=== PATIENT | female | born 1935 | race Caucasian/White ===

== ENCOUNTER 2016-09-10 16:22 | Inpatient (IN) | payer OTHER ==
[~2016-09-10] VITALS: Ht 175.3 cm; Wt 80.7 kg
[~2016-09-10 16:22] MED LIST: AMLO5TAB2 PO; CALC500C70 PO; HYDR12.55 PO; LEVO150T PO; METO25TA3 PO; PSYL55.43 PO; SYN125 PO; WARF2TAB PO
[2016-09-10] MEDS ORDERED: SODIUM CHLORIDE 0.9% 1000ML 1,000 ML IV SCH (16:28)
--- NOTE | 2016-09-10 16:32 | EMERGENCY ROOM VISIT NOTE ---
History Report prepared by Sea: Reymundo Good Under the Supervision of: Dr. Dontae Martinez D.O. First contact with patient: 16:24 Stated Complaint: TIA SX History of Present Illness The patient is an 81 year old female with a history of atrial fibrillation, hypertension, and hyperthyroidism, who presents to the Emergency Room with complaints of persistent stroke symptoms that started around 1400 this afternoon. EMS was called to the patient's house by the patient's due to the patient's altered mental status when they were driving around 1400. When EMS got there, the patient started having stroke symptoms which included a right -sided facial droop, right-sided weakness, expressive aphasia, and garbled, slurred speech. The patient is hypertensive currently, per EMS. She denies any current pain or headaches. The patient takes Warfarin, per the pharmacist. Per EMS, the patient is normally very independent. History limited secondary to patient's stroke symptoms. Source of History: patient, EMS History Limited By: other (stroke symptoms) Onset: 1400 this afternoon Position: other (global - stroke symptoms) Timing: other (persistent) Associated Symptoms: + weakness (right-sided), No headache Note: Associated symptoms: Altered mental status, right-sided facial droop, expressive aphasia, garbled and slurred speech. Review of Systems See HPI for pertinent positives & negatives. A total of 10 systems reviewed and were otherwise negative. Past Medical & Surgical Medical Problems: (1) Atrial fibrillation (2) Heart disease (3) HTN (hypertension) (4) Hypothyroidism Family History Cancer Heart disease Hypertension Social History Smoking Status: Unknown if Ever Smoked Alcohol Use: none Marital Status: Housing Status: lives with significant other Occupation Status: retired Current/Historical Medications Scheduled Calcium/Vitamin D (Os-Jensen 500 Plus D), 1 TAB PO BID Diltiazem Hcl Ext Rel (Tiazac), 120 MG PO DAILY Docusate Sodium (Colace), 100 MG PO PM Levothyroxine Sodium (Levothyroxine Sodium), 88 MCG PO DAILY Magnesium Oxide (Mag-Ox), 400 MG PO DAILY Metoprolol Succinate (Toprol Xl), 25 MG PO BID Psyllium (Metamucil Powder), 1 TBS PO QPM Triamcinolone Acet (Aristocort 0.1%), 1 APPLN TD BID Warfarin Sodium (Coumadin), 2-4 MG PO DAILY/UD Scheduled PRN Desonide 0.05% (Desowen 0.05%), 1 APPLN TOP DAILY PRN for RASH Hydroxyzine Hcl (Atarax), 5-10 MG PO QID PRN for ITCHING Allergies Coded Allergies: Amiodarone (Verified Allergy, Unknown, weight loss, 12/11/13) Physical Exam Vital Signs Date Time Temp Pulse Resp B/P Pulse Ox O2 Delivery O2 Flow Rate FiO2 09/10/16 17:36 207/129 09/10/16 17:35 77 26 99 09/10/16 17:31 189/105 09/10/16 17:30 75 24 99 09/10/16 17:26 205/157 09/10/16 17:25 78 100 09/10/16 17:20 76 181/92 99 09/10/16 17:19 Room Air 3.0 09/10/16 17:15 80 99 09/10/16 17:10 80 205/117 99 09/10/16 17:05 82 190/120 99 09/10/16 17:00 81 216/96 97 09/10/16 16:56 75 09/10/16 16:55 75 98 09/10/16 16:54 97 Room Air 09/10/16 16:53 205/125 09/10/16 16:48 203/106 09/10/16 16:24 36.7 75 18 203/106 93 Room Air Physical Exam GENERAL: Patient is awake but somewhat listless appearing. Does not appear to be in pain but slow to respond to questions. EYES: The conjunctivae are clear. The pupils are round and reactive. EARS, NOSE, MOUTH AND THROAT: The nose is without any evidence of any deformity. Mucous membranes are moist tongue is midline NECK: The neck is nontender and supple. RESPIRATORY: Normal respiratory effort is noted there is no evidence of wheezing rhonchi or rales CARDIOVASCULAR: Regular rate and rhythm noted there no murmurs rubs or gallops normal S1 normal S2 GASTROINTESTINAL: The abdomen is soft. Bowel sounds are present in all quadrants. Abdomen is nontender MUSCULOSKELETAL/EXTREMITIES: There is no evidence of gross deformity full range of motion is noted in the hips and shoulders SKIN: There is no obvious evidence of any rash. There are no petechiae, pallor or cyanosis noted. NEUROLOGIC: Patient's speech is thick and dysarthric. Words were inappropriate at times. Right facial droop with right forehead sparing noted. Cooler Conveyor Loader strength unequal, left greater than right. Drift in right upper extremity. Patient unable to lift right leg off of bed, patient was able to lift left leg off bed. Medical Decision & Procedures ER Provider Diagnostic Interpretation: Radiology results as stated below per my review and radiologist interpretation: HEAD CT NONCONTRAST CT DOSE: 691.05 mGy.cm HISTORY: Mental status change Stroke TECHNIQUE: Multiaxial CT images of the head were performed without the use of intravenous contrast. Comparison: None. Findings: The paranasal sinuses and mastoid air cells are clear. The calvarium and skull base are intact. The ventricles and sulci are within normal limits. There is no mass, hematoma, midline shift, or acute infarct. 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 No acute intracranial hemorrhage. No midline shift. Mild age-related atrophy. Impression: No acute intracranial abnormality. Age-related change. Electronically signed by: Michael Guan M.D. 09/10/2016 4:38 PM Dictated Date/Time: 09/10/2016 4:36 PM CHEST ONE VIEW PORTABLE CLINICAL HISTORY: Stroke mental status change COMPARISON STUDY: 12/11/2013 FINDINGS: Moderate prominence of pulmonary vasculature. Diaphragms smooth. Calcifications are sharp. IMPRESSION: Moderate prominence of pulmonary vasculature. Otherwise negative study Electronically signed by: Michael Guan M.D. 09/10/2016 5:18 PM Dictated Date/Time: 09/10/2016 5:18 PM Laboratory Results 09/10/16 16:08 Red Blood Count 4.66, Mean Corpuscular Volume 92.9, Mean Corpuscular Hemoglobin 32.4, Mean Corpuscular Hemoglobin Concent 34.9, Mean Platelet Volume 10.8, Neutrophils (%) (Auto) 65.3, Lymphocytes (%) (Auto) 23.9, Monocytes (%) (Auto) 8.4, Eosinophils (%) (Auto) 1.8, Basophils (%) (Auto) 0.3, Neutrophils # (Auto) 4.99, Lymphocytes # (Auto) 1.82, Monocytes # (Auto) 0.64, Eosinophils # (Auto) 0.14, Basophils # (Auto) 0.02 09/10/16 16:08 Test 09/10/16 16:08 09/10/16 16:53 09/10/16 17:42 09/10/16 17:47 White Blood Count 7.63 K/uL (4.8-10.8) Red Blood Count 4.66 M/uL (4.2-5.4) Hemoglobin 15.1 g/dL (12.0-16.0) Hematocrit 43.3 % (37-47) Mean Corpuscular Volume 92.9 fL (80-100) Mean Corpuscular Hemoglobin 32.4 pg (25-34) Mean Corpuscular Hemoglobin Concent 34.9 g/dl (32-36) Platelet Count 227 K/uL (130-400) Mean Platelet Volume 10.8 fL (7.4-10.4) Neutrophils (%) (Auto) 65.3 % Lymphocytes (%) (Auto) 23.9 % Monocytes (%) (Auto) 8.4 % Eosinophils (%) (Auto) 1.8 % Basophils (%) (Auto) 0.3 % Neutrophils # (Auto) 4.99 K/uL (1.4-6.5) Lymphocytes # (Auto) 1.82 K/uL (1.2-3.4) Monocytes # (Auto) 0.64 K/uL (0.11-0.59) Eosinophils # (Auto) 0.14 K/uL (0-0.5) Basophils # (Auto) 0.02 K/uL (0-0.2) RDW Standard Deviation 44.5 fL (36.4-46.3) RDW Coefficient of Variation 13.0 % (11.5-14.5) Immature Granulocyte % (Auto) 0.3 % Immature Granulocyte # (Auto) 0.02 K/uL (0.00-0.02) Prothrombin Time 25.0 SECONDS (9.0-12.0) Prothromb Time International Ratio 2.3 (0.9-1.1) Activated Partial Thromboplast Time 37.1 SECONDS (21.0-31.0) Partial Thromboplastin Ratio 1.4 Anion Gap 9.0 mmol/L (3-11) Est Creatinine Clear Calc Drug Dose 63.4 ml/min Estimated GFR () 84.5 Estimated GFR (Non- 72.9 BUN/Creatinine Ratio 14.2 (10-20) Calcium Level 9.3 mg/dl (8.5-10.1) Total Bilirubin 0.6 mg/dl (0.2-1) Direct Bilirubin < 0.1 mg/dl (0-0.2) Aspartate Amino Transf (AST/SGOT) 21 U/L (15-37) Alanine Aminotransferase (ALT/SGPT) 23 U/L (12-78) Alkaline Phosphatase 77 U/L (45-117) Total Creatine Kinase 93 U/L (26-192) Creatine Kinase MB 1.8 ng/ml (0.5-3.6) Creatine Kinase MB Ratio 1.9 (0-3.0) Troponin I < 0.015 ng/ml (0-0.045) Total Protein 8.1 gm/dl (6.4-8.2) Albumin 4.1 gm/dl (3.4-5.0) Bedside Prothrombin Time INR 2.3 (0.9-1.1) Laboratory results per my review. Medications Administered Medications (Trade) Dose Ordered Sig/Areli Route Start Time Stop Time Status Last Admin Dose Admin Sodium Chloride (Nss 1000ml) 1,000 ml @ 50 mls/hr Q20H IV 09/10/16 16:28 10/10/16 16:27 09/10/16 17:05 50 MLS/HR ECG Indication: weakness Rate (beats per minute): 77 Rhythm: atrial fibrillation Findings: no ectopy, other (no acute ST segment abnormalities) Change: no significant change (from December 11 2013) ED Course 1624: The patient was evaluated in room C1B. A complete history and physical examination were performed. 1628: Ordered NSS 1000 ml @ 50 mls/hr IV. 1700: I discussed the patient with Dr. Khadra Kiser neurology. 1723: I discussed the patient with Dr. Christopher Muniz hospitalist. She will evaluate the patient for further treatment. Medical Decision Additional history obtained from EMS, ED pharmacist. Differential diagnosis: Etiologies such as metabolic, infection, hypo/hyperglycemia, electrolyte abnormalities, cardiac sources, intracerebral event, toxicologic, neurologic, as well as others were entertained. Additional history is obtained from the patient's family members. The patient is an 81-year-old female with a history of atrial fibrillation who takes Coumadin who presented to the emergency department for an evaluation of possible stroke. She was made a stroke alert upon arrival to the emergency department but she did not meet criteria for TPA because of an elevated INR. The patient appeared to have right-sided neglect as well as right facial droop. She also had right arm drift and her right leg she was unable to lift off of the bed. Because of the patient's NIH stroke scale I consult with the [facility] tele stroke neurologist. He independently evaluated the patient using the bedside machine. At this time she does not appear to be a candidate for TPA or clot retrieval because the onset of symptoms is also somewhat confused because of the caregivers history. I discussed the patient's laboratory and radiographic studies with her and her family members. I also discussed his case with the on-call [facility]. They've agreed to evaluate the patient in the emergency department for further management and disposition. Consults Time Called: 1650 Consulting Physician: Dr. Gaviria Returned Call: 1700 I discussed the patient with Dr. Gaviria - Margi neurology. Additional Consults: Time Called: 1720 Consulted Physician: Dr. Christopher cuevas Returned Call: 1723 Additional Comments: I discussed the patient with Dr. Christopher cuevas. She will evaluate the patient for further treatment. Impression Primary Impression: Acute CVA (cerebrovascular accident) Critical Care I have personally spent greater than 45 minutes of critical care time in the direct management of this patient. This includes bedside care, interpretation of diagnostic studies, and testing, discussion with consultants, patient, and family members, and other required patient management activities. This 45 minutes is in excess of all separately billable procedures. Scribe Attestation The scribe's documentation has been prepared under my direction and personally reviewed by me in its entirety. I confirm that the note above accurately reflects all work, treatment, procedures, and medical decision making performed by me. Stroke t-PA Criteria Reviewed Does NOT meet criteria for t-PA Reason t-PA Not Given Treatment not indicated Strict Exclusion Criteria INR greater than 1.7 Departure Information Dispostion Being Evaluated By Hospitalist Dee Mcwilliams M.D. (PCP)
--- NOTE | 2016-09-10 16:40 | DIAGNOSTIC IMAGING REPORT ---
HEAD CT NONCONTRAST CT DOSE: 691.05 mGy.cm HISTORY: Mental status change Stroke TECHNIQUE: Multiaxial CT images of the head were performed without the use of intravenous contrast. Comparison: None. Findings: The paranasal sinuses and mastoid air cells are clear. The calvarium and skull base are intact. The ventricles and sulci are within normal limits. There is no mass, hematoma, midline shift, or acute infarct. 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 No acute intracranial hemorrhage. No midline shift. Mild age-related atrophy. Impression: No acute intracranial abnormality. Age-related change. Electronically signed by: Michael Guan M.D. 09/10/2016 4:38 PM Dictated Date/Time: 09/10/2016 4:36 PM
--- NOTE | 2016-09-10 16:44 | Pharmacy Progress Note ---
ED Pharmacist Progress Note Date of Service: Sep 10, 2016. Stroke Alert Note / Medication Reconciliation - patient with altered mental status, not able to inform of what medications patient is on - patient was last here in 2013 at which time warfarin was listed as a home medication - called [facility] pharmacy in [place] (preferred pharmacy per previous encounter) , spoke w pharmacist (Jennifer) [facility] pharmacist notes patient recently filled the following medications. Of note, this list may be incomplete as medications that are obtained elsewhere , prn medications not filled recently, and OTC meds the patient may be taking ( among others) will not be listed here. Warfarin 4 mg po SuMoTuTh and 2 mg WeFrSa Metoprolol XL 25 mg po BID Diltiazem ER 120 mg po daily Levothyroxine 88 mcg po daily Levocetirizine 5 mg po daily
[2016-09-10 17:12] LABS: BASO % 0.3 %; BASO ABS # 0.02 K/uL (0-0.2); COMPLETE YES; EOS % 1.8 %; HEMATOCRIT 43.3 % (37-47); IG% 0.3 %; LYMPH % 23.9 %; LYMPH ABS # 1.82 K/uL (1.2-3.4); MEAN CELL VOLUME 92.9 fL (80-100); MEAN CORPUSCULAR HEMOGLOBIN 32.4 pg (25-34); MEAN CORPUSCULAR HGB CONC 34.9 g/dl (32-36); MEAN PLATELET VOLUME 10.8 fL (7.4-10.4); MONO % 8.4 %; NEUT % 65.3 %; PLATELET COUNT 227 K/uL (130-400); RED BLOOD COUNT 4.66 M/uL (4.2-5.4); WHITE BLOOD COUNT 7.63 K/uL (4.8-10.8)
--- NOTE | 2016-09-10 17:20 | DIAGNOSTIC IMAGING REPORT ---
CHEST ONE VIEW PORTABLE CLINICAL HISTORY: Stroke mental status change COMPARISON STUDY: 12/11/2013 FINDINGS: Moderate prominence of pulmonary vasculature. Diaphragms smooth. Calcifications are sharp. IMPRESSION: Moderate prominence of pulmonary vasculature. Otherwise negative study Electronically signed by: Michael Guan M.D. 09/10/2016 5:18 PM Dictated Date/Time: 09/10/2016 5:18 PM
[2016-09-10 17:23] LABS: INR 2.3 (0.9-1.1); PARTIAL THROMBOPLASTIN RATIO 1.4
[2016-09-10] MEDS ORDERED: DSWCR TOP (17:29)
[2016-09-10] MEDS ORDERED: HYDR-389 PO (17:32)
[2016-09-10] MEDS ORDERED: DILT120C68 PO (17:33)
[2016-09-10] MEDS ORDERED: WARF2TAB PO (17:36)
[2016-09-10 17:37] LABS: ALT/SGPT 23 U/L (12-78); BLOOD UREA NITROGEN 11 mg/dl (7-18); BUN/CREATININE RATIO 14.2 (10-20); CALCIUM 9.3 mg/dl (8.5-10.1); CARBON DIOXIDE 28 mmol/L (21-32); CHLORIDE 94 mmol/L (98-107); CREATININE 0.77 mg/dl (0.60-1.20); GLUCOSE 88 mg/dl (70-99); SODIUM 131 mmol/L (136-145)
[2016-09-10] MEDS ORDERED: LEVO88TA3 PO (17:37)
[2016-09-10] MEDS ORDERED: MAGN400T6 PO (17:39)
[2016-09-10 17:41] LABS: ALKALINE PHOSPHATASE 77 U/L (45-117); AST/SGOT 21 U/L (15-37); CKMB/CK RATIO 1.9 (0-3.0)
[2016-09-10] MEDS ORDERED: TRMCR130WC TD (17:41)
[2016-09-10] MEDS ORDERED: DOCU-94 PO (17:44)
[2016-09-10] MEDS ORDERED: NiCARDipine IV 25 MG in SODIUM CHLORIDE 0.9% 250ML 240 ML IV PRN ×2 (18:15→19:06)
[2016-09-10 18:17] LABS: URINE APPEARANCE CLEAR (CLEAR); URINE BILIRUBIN NEG (NEG); URINE COLOR YELLOW; URINE EPITHELIAL CELL AUTO 0-5 /lpf (0-5); URINE NITRITE NEG (NEG); URINE PH 8.5 (4.5-7.5); URINE SPECIFIC GRAVITY 1.008 (1.000-1.030); UROBILINOGEN NEG (NEG)
[2016-09-10 18:20] LABS: MANUAL MICROSCOPIC REQUIRED? NO; REVIEW REQ? NO
[2016-09-10 18:46] LABS: BENZODIAZEPINE, URINE NEG (NEG); COCAINE,URINE NEG (NEG); PHENCYCLIDINE, URINE NEG (NEG)
[2016-09-10] MEDS ORDERED: ACETAMINOPHEN 325 MG TAB PO PRN (19:15)
[2016-09-10] MEDS ORDERED: ONDANSETRON INJ 2 MG/ML 2 ML VIAL IV PRN (19:15)
[2016-09-10] MEDS ORDERED: PHARMACIST DISCHARGE MED REC CONSULT PRN (19:30)
--- NOTE | 2016-09-10 19:51 | History and Physical ---
History & Physical Date & Time of Service: Sep 10, 2016 at 19:31 Chief Complaint: Tia Sx Primary Care Physician: Dee Rivera M.D. History of Present Illness Source: patient, family, clinic records, hospital records, friend Patient seen and examined. 81 year old female with PMHx of Afib on Coumadin, HTN , and hypothyroidism presents to the ED with stroke like symptoms prior to arrival. states that they were shopping in [place] when the patient stated that she was dizzy and had blurry vision. She then apparently developed a right facial droop and had some difficulty walking. Her speech was very slurred and she seemed confused. She could not find the correct words to say, and sometimes wouldn't speak at all. Her took her home and the neighbor saw that the patient had these symptoms and called EMS. In the ED stroke alert was called. CT head was negative. It was decided that patient could not have TPA or clot retrieval d/t INR of 2.3 and unknown onset of symptoms. BP is elevated >190 systolically. A nicardipine drip was started. When seen and examined by this provider, patient continued to have word finding issues, and confusion. She denies fevers, chills, URI symptoms, chest pain, SOB, nausea, vomiting, diarrhea, dysuria, calf pain and edema. Patient will be admitted for further workup and treatment. Past Medical/Surgical History Medical Problems: (1) Atrial fibrillation Status: Chronic (2) HTN (hypertension) Status: Chronic (3) Hypothyroidism Status: Chronic Surgical Problems: (1) H/O colonoscopy Status: Chronic Family History Cancer Heart disease Hypertension Social History Smoking Status: Never Smoker Alcohol Use: none Marital Status: Housing status: lives with family Occupational Status: retired Immunizations History of Influenza Vaccine: Unknown History of Tetanus Vaccine?: Unknown History of Pneumococcal: Unknown History of Hepatitis B Vaccine: Unknown Multi-Drug Resistant Organisms History of MDRO: No Allergies Coded Allergies: Amiodarone (Verified Allergy, Unknown, weight loss, 12/11/13) Home Medications Scheduled Calcium/Vitamin D (Os-Jensen 500 Plus D), 1 TAB PO BID Diltiazem Hcl Ext Rel (Tiazac), 120 MG PO DAILY Docusate Sodium (Colace), 100 MG PO PM Levothyroxine Sodium (Levothyroxine Sodium), 88 MCG PO DAILY Magnesium Oxide (Mag-Ox), 400 MG PO DAILY Metoprolol Succinate (Toprol Xl), 25 MG PO BID Psyllium (Metamucil Powder), 1 TBS PO QPM Triamcinolone Acet (Aristocort 0.1%), 1 APPLN TD BID Warfarin Sodium (Coumadin), 2-4 MG PO DAILY/UD Scheduled PRN Desonide 0.05% (Desowen 0.05%), 1 APPLN TOP DAILY PRN for RASH Hydroxyzine Hcl (Atarax), 5-10 MG PO QID PRN for ITCHING Review of Systems See above for pertinent positives & negatives. A total of 10 systems reviewed and were otherwise negative. Physical Exam Vital Signs Date Time Temp Pulse Resp B/P Pulse Ox O2 Delivery O2 Flow Rate FiO2 09/10/16 19:17 94 26 181/100 97 09/10/16 19:00 74 20 164/88 98 Nasal Cannula 3.0 09/10/16 18:45 87 22 188/98 97 09/10/16 18:29 70 22 157/108 97 09/10/16 18:24 84 20 166/88 98 09/10/16 18:21 75 25 98 09/10/16 18:16 79 18 99 09/10/16 18:15 182/95 09/10/16 18:11 63 21 99 09/10/16 18:06 78 20 99 09/10/16 18:05 197/100 09/10/16 18:01 70 23 98 09/10/16 18:00 188/92 09/10/16 17:56 80 23 188/107 99 09/10/16 17:51 68 20 100 09/10/16 17:50 208/108 09/10/16 17:46 70 21 99 09/10/16 17:45 187/107 09/10/16 17:41 71 24 99 09/10/16 17:36 207/129 09/10/16 17:35 77 26 99 09/10/16 17:31 189/105 09/10/16 17:30 75 24 99 09/10/16 17:26 205/157 09/10/16 17:25 78 100 09/10/16 17:20 76 181/92 99 09/10/16 17:19 Room Air 3.0 09/10/16 17:15 80 99 09/10/16 17:10 80 205/117 99 09/10/16 17:05 82 190/120 99 09/10/16 17:00 81 216/96 97 09/10/16 16:56 75 09/10/16 16:55 75 98 09/10/16 16:54 97 Room Air 09/10/16 16:53 205/125 09/10/16 16:48 203/106 09/10/16 16:24 36.7 75 18 203/106 93 Room Air General Appearance: + pertinent finding (WD/WN 81 year old female lying in bed in NAD with and neighbor at bedside ) Head: normocephalic, atraumatic Eyes: PERRL, EOMI, sclerae normal ENT: hearing grossly normal, pharynx normal Neck: supple, no JVD Respiratory/Chest: chest non-tender, lungs clear, normal breath sounds, no respiratory distress, no accessory muscle use Cardiovascular: regular rate, rhythm, no edema, no gallop, no JVD, no murmur, normal peripheral pulses Abdomen/GI: normal bowel sounds, non tender, soft Back: normal inspection, no muscle spasm Extremities/Musculoskelatal: no calf tenderness, normal capillary refill, no pedal edema Neurologic/Psych: normal reflexes, + pertinent finding (Alert, confused, sometimes oriented but othertimes not, word finding issues, difficulty concentrating/following commands, strength equal in all extremities, stereo equipment installer intact , ) Skin: normal color, warm/dry, no rash Lymphatic: no adenopathy Diagnostics Laboratory Results Results Past 24 Hours Test 09/10/16 00:00 09/10/16 16:08 09/10/16 16:53 Range/Units Urine Color YELLOW Urine Appearance CLEAR CLEAR Urine pH 8.5 4.5-7.5 Urine Specific Partridge 1.008 1.000-1.030 Urine Protein NEG NEG Urine Glucose (UA) NEG NEG Urine Ketones TRACE NEG Urine Occult Blood TRACE NEG Urine Nitrite NEG NEG Urine Bilirubin NEG NEG Urine Urobilinogen NEG NEG Urine Leukocyte Esterase NEG NEG Urine WBC (Auto) 0 0-5 /hpf Urine RBC (Auto) 0-4 0-4 /hpf Urine Hyaline Casts (Auto) 0 0-5 /lpf Urine Epithelial Cells (Auto) 0-5 0-5 /lpf Urine Bacteria (Auto) NEG NEG Urine Opiates Screen NEG NEG Urine Methadone, Qualitative NEG NEG Urine Barbiturates NEG NEG Urine Phencyclidine (PCP) Level NEG NEG Ur Amphetamine/Methamphetamine NEG NEG MDMA (Ecstasy) Screen NEG NEG Urine Benzodiazepines Screen NEG NEG Urine Cocaine Metabolite NEG NEG Urine Marijuana (THC) NEG NEG White Blood Count 7.63 4.8-10.8 K/uL Red Blood Count 4.66 4.2-5.4 M/uL Hemoglobin 15.1 12.0-16.0 g/dL Hematocrit 43.3 37-47 % Mean Corpuscular Volume 92.9 80-100 fL Mean Corpuscular Hemoglobin 32.4 25-34 pg Mean Corpuscular Hemoglobin Concent 34.9 32-36 g/dl Platelet Count 227 130-400 K/uL Mean Platelet Volume 10.8 7.4-10.4 fL Neutrophils (%) (Auto) 65.3 % Lymphocytes (%) (Auto) 23.9 % Monocytes (%) (Auto) 8.4 % Eosinophils (%) (Auto) 1.8 % Basophils (%) (Auto) 0.3 % Neutrophils # (Auto) 4.99 1.4-6.5 K/uL Lymphocytes # (Auto) 1.82 1.2-3.4 K/uL Monocytes # (Auto) 0.64 0.11-0.59 K/uL Eosinophils # (Auto) 0.14 0-0.5 K/uL Basophils # (Auto) 0.02 0-0.2 K/uL RDW Standard Deviation 44.5 36.4-46.3 fL RDW Coefficient of Variation 13.0 11.5-14.5 % Immature Granulocyte % (Auto) 0.3 % Immature Granulocyte # (Auto) 0.02 0.00-0.02 K/uL Prothrombin Time 25.0 9.0-12.0 SECONDS Prothromb Time International Ratio 2.3 0.9-1.1 Activated Partial Thromboplast Time 37.1 21.0-31.0 SECONDS Partial Thromboplastin Ratio 1.4 Sodium Level 131 136-145 mmol/L Potassium Level 4.0 3.5-5.1 mmol/L Chloride Level 94 98-107 mmol/L Carbon Dioxide Level 28 21-32 mmol/L Anion Gap 9.0 3-11 mmol/L Blood Urea Nitrogen 11 7-18 mg/dl Creatinine 0.77 0.60-1.20 mg/dl Est Creatinine Clear Calc Drug Dose 63.4 ml/min Estimated GFR () 84.5 Estimated GFR (Non- 72.9 BUN/Creatinine Ratio 14.2 10-20 Random Glucose 88 70-99 mg/dl Calcium Level 9.3 8.5-10.1 mg/dl Total Bilirubin 0.6 0.2-1 mg/dl Direct Bilirubin < 0.1 0-0.2 mg/dl Aspartate Amino Transf (AST/SGOT) 21 15-37 U/L Alanine Aminotransferase (ALT/SGPT) 23 12-78 U/L Alkaline Phosphatase 77 45-117 U/L Total Creatine Kinase 93 26-192 U/L Creatine Kinase MB 1.8 0.5-3.6 ng/ml Creatine Kinase MB Ratio 1.9 0-3.0 Troponin I < 0.015 0-0.045 ng/ml Total Protein 8.1 6.4-8.2 gm/dl Albumin 4.1 3.4-5.0 gm/dl Bedside Prothrombin Time INR 2.3 0.9-1.1 Diagnostic Radiology CXR Per radiologist read: IMPRESSION: Moderate prominence of pulmonary vasculature. Otherwise negative study CT HEAD Per radiologist read: Impression: No acute intracranial abnormality. Age-related change. EKG Sinus Rhythm with PACs 77 BPM, Qtc 454 Impression Assessment and Plan 81 year old female presents to the ED with stroke like symptoms. Stroke alert called, determined that patient is not a candidate for TPA, or clot retrieval at this time ACUTE CVA -Admit to ICU -CT head negative -Patient still with significant neurologic deficits -Case discussed with Dr. Shultz (neurology) input appreciated -Monitor in ICU while on nicardipine drip goal -Repeat CT Head in AM to r/o hemorrhagic conversion -Lipitor started for plaque stabilization -Will not start Aspirin until after CT head tomorrow -hold Coumadin -MRI/MRA head to further assess CVA -Carotid doppler pending -Echo pending to r/o embolic source -Check lipid panel, A1c for risk stratification -neuro checks q4h -npo until dysphagia screen -PT/OT/Speech Evals -certified social workers in health care consult for discharge planning -Fall precautions, aspiration precautions HYPERTENSIVE URGENCY -SBP >200 at times, labile -Nicardipine drip started -Titrate to 175-195 mmHg -hold for SBP <170mmHg to allow permissive HTN in the setting of stroke -monitor closely in ICU ATRIAL FIBRILLATION -rate controlled -continue BB, Diltiazem -hold Coumadin for bleeding risk -follow INR -monitor in ICU HYPOTHYROIDISM -Change po Synthroid to IV DVT PROPHYLAXIS: INR therapeutic, Coumadin on hold tonight will reassess in AM CODE STATUS: FULL CODE per my discussion with the patient's family DISPO:In my clinical judgment this beneficiary meets acute admission criteria, established by [facility], that includes being hospitalized through two midnights. Patient seen in collaboration with Dr. White I have seen and examined the patient and discussed the case with the provider above. Plan was reviewed with Neurology. Awaiting MRI tonight and repeat CT head in am to ensure no evidence of hemorrhagic conversion on therapeutic warfarin. In ICU because of monitoring while on Jesica White, DO Level of Care Critical Care Resuscitation Status FULL RESUSCITATION VTE Prophylaxis VTE Risk Assessment Done? Y/N: Yes Risk Level: Moderate Given or contraindicated: Warfarin (Coumadin)
[2016-09-10] MEDS ORDERED: ATORVASTATIN 40 MG TAB PO ONE (20:00)
[2016-09-10 20:30] VITALS: BP 160/87; PULSE 73; TEMP 36.6; O2SAT 95; Ht 175.3 cm; Wt 80.7 kg
[2016-09-10] MEDS: METOPROLOL SUCC 25MG EXT REL TAB PO SCH (21:43)
--- NOTE | 2016-09-10 22:00 | Critical Care Consultation ---
Critical Care Consultation Date of Consultation: Sep 10, 2016. Attending Physician: Maria Del Carmen Lin MD Reason for Consultation: Stroke-like Symptoms History of Present Illness Attending: Dr. Marcos Shannon Pt is an 81yo female who presented to the ED after her noted that she began to have difficulty speaking, trouble moving right side, and facial droop of the right side as well. This behavior was originally noted by spouse while shopping in the [facility]. They returned home, where their neighbor's input was sought and EMS was called. Pt underwent a CXR and CT that did not demonstrate acute processes. [place] Tele-Stroke was initiated but secondary to elevated INR of 2.3 and presumed symptoms for greater than 4hrs( exact time is unknown), TPA was not administered in this patient. In the ED, per medical records the patient continued to have word finding issues and confusion. She was found to be hypertensive with systolic pressures greater than 190. Pt was treated with a Nicardipine drip with some improvement of her pressures. Upon seeing pt in the ICU with her , daughter and family were at bedside. Family and [facility] records demonstrate that the patient has had ongoing neurological symptoms since May 2016. They state she underwent a period of time of difficulty speaking which has vastly improved; as well as lower extremity weakness. It appears her family doctor referred her for PT, but there is no documentation verifying follow-up. Family does say that today' s symptoms are far worse than her most recent baseline. She denied fevers, chills, recent illness. She denied chest pain, palpitations , difficulty breathing. Denied N/V/D, calf pain, or change in vision/loss of vision. LLE pain/weakness at baseline unchanged according to patient. Past Medical/Surgical History Medical Problems: Atrial fibrillation HTN (hypertension) Hypothyroidism Nodular Basal Cell CA Rosacea Osteoporosis Generalized Anxiety Disorder Palpitations Vertigo Partial Vastus Medialis Tear of Left Leg Lymphedema Left Leg Mobility Impediment/Use of Cane Surgical Problems: H/O colonoscopy H/O EGD Family History Cancer Heart disease Hypertension Non-Contributory Social History Smoking Status: Never Smoker Alcohol Use: none Marital Status: Housing Status: lives with significant other Occupation Status: retired Allergies Coded Allergies: Amiodarone (Verified Allergy, Unknown, weight loss, 12/11/13) Home Medications Scheduled Calcium/Vitamin D (Os-Jensen 500 Plus D), 1 TAB PO BID Diltiazem Hcl Ext Rel (Tiazac), 120 MG PO DAILY Docusate Sodium (Colace), 100 MG PO PM Levothyroxine Sodium (Levothyroxine Sodium), 88 MCG PO DAILY Magnesium Oxide (Mag-Ox), 400 MG PO DAILY Metoprolol Succinate (Toprol Xl), 25 MG PO BID Psyllium (Metamucil Powder), 1 TBS PO QPM Triamcinolone Acet (Aristocort 0.1%), 1 APPLN TD BID Warfarin Sodium (Coumadin), 2-4 MG PO DAILY/UD Scheduled PRN Desonide 0.05% (Desowen 0.05%), 1 APPLN TOP DAILY PRN for RASH Hydroxyzine Hcl (Atarax), 5-10 MG PO QID PRN for ITCHING Current Inpatient Medications Current Inpatient Medications Medications (Trade) Dose Ordered Sig/Areli Route Start Time Stop Time Status Last Admin Dose Admin Sodium Chloride (Nss 1000ml) 1,000 ml @ 50 mls/hr Q20H IV 09/10/16 16:28 10/10/16 16:27 09/10/16 17:05 50 MLS/HR Miscellaneous Information (Pending Order) 1 ea TODAY@2300 ONCE N/A 09/10/16 23:00 09/10/16 23:01 Acetaminophen (Tylenol Tab) 650 mg Q4H PRN PO 09/10/16 19:15 10/10/16 19:14 Ondansetron HCl 4 mg 4 mg Q6H PRN IV 09/10/16 19:15 10/10/16 19:14 Nicardipine HCl/ Sodium Chloride (Cardene Iv/Nss 250ml) 250 ml @ 0 mls/hr Q0M PRN IV 09/10/16 19:06 10/10/16 19:05 Miscellaneous Information (Pharmacist Discharge Med Rec Consult) 1 ea UD PRN N/A 09/10/16 19:30 10/10/16 19:29 Diltiazem HCl (TIAzac CAP) 120 mg DAILY PO 09/11/16 09:00 10/11/16 08:59 Metoprolol Succinate 25 mg 25 mg BID PO 09/10/16 21:00 10/10/16 20:59 Levothyroxine Sodium/Syringe (Synthroid Inj/ Syringe) 2.2 ml @ 2 mls/min DAILY@09 IV 09/11/16 09:00 10/11/16 08:59 Atorvastatin Calcium (Lipitor Tab) 80 mg QAM PO 09/11/16 09:00 10/11/16 08:59 Review of Systems 12 systems reviewed and negative other than previously mentioned in the HPI. Physical Exam Date Time Temp Pulse Resp B/P Pulse Ox O2 Delivery O2 Flow Rate FiO2 09/10/16 19:29 88 26 170/91 97 09/10/16 19:17 94 26 181/100 97 09/10/16 19:00 74 20 164/88 98 Nasal Cannula 3.0 09/10/16 18:45 87 22 188/98 97 09/10/16 18:29 70 22 157/108 97 09/10/16 18:24 84 20 166/88 98 09/10/16 18:21 75 25 98 09/10/16 18:16 79 18 99 09/10/16 18:15 182/95 09/10/16 18:11 63 21 99 09/10/16 18:06 78 20 99 09/10/16 18:05 197/100 09/10/16 18:01 70 23 98 09/10/16 18:00 188/92 09/10/16 17:56 80 23 188/107 99 09/10/16 17:51 68 20 100 09/10/16 17:50 208/108 09/10/16 17:46 70 21 99 09/10/16 17:45 187/107 09/10/16 17:41 71 24 99 09/10/16 17:36 207/129 09/10/16 17:35 77 26 99 09/10/16 17:31 189/105 09/10/16 17:30 75 24 99 09/10/16 17:26 205/157 09/10/16 17:25 78 100 09/10/16 17:20 76 181/92 99 09/10/16 17:19 Room Air 3.0 09/10/16 17:15 80 99 09/10/16 17:10 80 205/117 99 09/10/16 17:05 82 190/120 99 09/10/16 17:00 81 216/96 97 09/10/16 16:56 75 09/10/16 16:55 75 98 09/10/16 16:54 97 Room Air 09/10/16 16:53 205/125 09/10/16 16:48 203/106 09/10/16 16:24 36.7 75 18 203/106 93 Room Air Vital Signs - as noted Laboratory Data - as noted Physical Exam: General - NAD, resting in bed Eyes - PERRL, EOMI, No icterus, gaze conjugate ENT - Mucosa moist, no lesions or candidiasis Neck - Supple, trachea midline, no masses or lymphadenopathy, no JVD or bruits Lungs - No paradoxical chest wall movement, clear to auscultation bilaterally, no wheezes, rales, or rhonchi Heart - irregular rhythm with rate in the low to mid 70's, No murmur, rubs, clicks, or gallops appreciated Abdomen - normoactive BS present, no bruits noted, tympanic to percussion, soft , nontender, mild distension, no organomegaly Extremities - No edema, pedal pulses intact Strength extremities equal and appropriate bilaterally; LLE larger than R @ baseline Reflexes: Bicep, brachioradialis, patellar normal and equal; pt states numbness with minimal feeling in bilateral feet, no pedal reflexive response noted CN:PERRL, EOMI, no facial asymmetry, uvula/tongue midline Neuro - A&O x 3; Trouble recalling today's events Proprioception grossly intact: pt could identify singular touches to her extremities, but with bilaterally palpation pt only noted right. Difficulty concentrating and repeating "No ifs, and, or buts." neg pronator drift Cerebellum: Finger to nose appropriate with left, could not follow directions with right Laboratory Results Last 24 Hours Test 09/10/16 00:00 09/10/16 16:08 09/10/16 16:53 Urine Color YELLOW Urine Appearance CLEAR Urine pH 8.5 Urine Specific [place] 1.008 Urine Protein NEG Urine Glucose (UA) NEG Urine Ketones TRACE Urine Occult Blood TRACE Urine Nitrite NEG Urine Bilirubin NEG Urine Urobilinogen NEG Urine Leukocyte Esterase NEG Urine WBC (Auto) 0 /hpf Urine RBC (Auto) 0-4 /hpf Urine Hyaline Casts (Auto) 0 /lpf Urine Epithelial Cells (Auto) 0-5 /lpf Urine Bacteria (Auto) NEG Urine Opiates Screen NEG Urine Methadone, Qualitative NEG Urine Barbiturates NEG Urine Phencyclidine (PCP) Level NEG Ur Amphetamine/Methamphetamine NEG MDMA (Ecstasy) Screen NEG Urine Benzodiazepines Screen NEG Urine Cocaine Metabolite NEG Urine Marijuana (THC) NEG White Blood Count 7.63 K/uL Red Blood Count 4.66 M/uL Hemoglobin 15.1 g/dL Hematocrit 43.3 % Mean Corpuscular Volume 92.9 fL Mean Corpuscular Hemoglobin 32.4 pg Mean Corpuscular Hemoglobin Concent 34.9 g/dl Platelet Count 227 K/uL Mean Platelet Volume 10.8 fL Neutrophils (%) (Auto) 65.3 % Lymphocytes (%) (Auto) 23.9 % Monocytes (%) (Auto) 8.4 % Eosinophils (%) (Auto) 1.8 % Basophils (%) (Auto) 0.3 % Neutrophils # (Auto) 4.99 K/uL Lymphocytes # (Auto) 1.82 K/uL Monocytes # (Auto) 0.64 K/uL Eosinophils # (Auto) 0.14 K/uL Basophils # (Auto) 0.02 K/uL RDW Standard Deviation 44.5 fL RDW Coefficient of Variation 13.0 % Immature Granulocyte % (Auto) 0.3 % Immature Granulocyte # (Auto) 0.02 K/uL Prothrombin Time 25.0 SECONDS Prothromb Time International Ratio 2.3 Activated Partial Thromboplast Time 37.1 SECONDS Partial Thromboplastin Ratio 1.4 Sodium Level 131 mmol/L Potassium Level 4.0 mmol/L Chloride Level 94 mmol/L Carbon Dioxide Level 28 mmol/L Anion Gap 9.0 mmol/L Blood Urea Nitrogen 11 mg/dl Creatinine 0.77 mg/dl Est Creatinine Clear Calc Drug Dose 63.4 ml/min Estimated GFR () 84.5 Estimated GFR (Non- 72.9 BUN/Creatinine Ratio 14.2 Random Glucose 88 mg/dl Calcium Level 9.3 mg/dl Total Bilirubin 0.6 mg/dl Direct Bilirubin < 0.1 mg/dl Aspartate Amino Transf (AST/SGOT) 21 U/L Alanine Aminotransferase (ALT/SGPT) 23 U/L Alkaline Phosphatase 77 U/L Total Creatine Kinase 93 U/L Creatine Kinase MB 1.8 ng/ml Creatine Kinase MB Ratio 1.9 Troponin I < 0.015 ng/ml Total Protein 8.1 gm/dl Albumin 4.1 gm/dl Bedside Prothrombin Time INR 2.3 Diagnostic Results CHEST ONE VIEW PORTABLE CLINICAL HISTORY: Stroke mental status change COMPARISON STUDY: 12/11/2013 FINDINGS: Moderate prominence of pulmonary vasculature. Diaphragms smooth. Calcifications are sharp. IMPRESSION: Moderate prominence of pulmonary vasculature. Otherwise negative study Electronically signed by: Michael Guan M.D. 09/10/2016 5:18 PM Dictated Date/Time: 09/10/2016 5:[address]AST CT DOSE: 691.05 mGy.cm HISTORY: Mental status change Stroke TECHNIQUE: Multiaxial CT images of the head were performed without the use of intravenous contrast. Comparison: None. Findings: The paranasal sinuses and mastoid air cells are clear. The calvarium and skull base are intact. The ventricles and sulci are within normal limits. There is no mass, hematoma, midline shift, or acute infarct. 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 No acute intracranial hemorrhage. No midline shift. Mild age-related atrophy. Impression: No acute intracranial abnormality. Age-related change. Electronically signed by: Michael Guan M.D. 09/10/2016 4:38 PM Dictated Date/Time: 09/10/2016 4:36 PM Assessment & Plan (1) Acute CVA (cerebrovascular accident) (2) HTN (hypertension) (3) Hyponatremia (4) Atrial fibrillation (5) Hypothyroidism PLAN: Neuro: * NIH Stroke scale peaked at 16; now 4 in the ICU * Worth II score of 8 (6% Mortality) * Symptoms do not currently coordinated physiologically to one neurologic/ vascular area. Continue to monitor for progression/change. * Repeat CT Head in AM * INR currently 2.3 will hold home medications * Neuro checks per nursing protocol * MRI/MRA Head and Neck ordered * Neuro Consult placed: Appreciate Dr. Shultz's input * PT/OT and formal speech eval recommended Resp: * Stable on 2L via nasal cannula with adequate saturations * CXR without acute process, follow clinically * Supplemental oxygen as required * HOB @ 30* to minimize aspiration risk, will follow up with formal speech evaluation CV: * Hypertension at baseline, treated out-pt with Diltiazem and Metoprolol Succinate * Nicardipine drip now held secondary to systolics in the 140-150s. Goal per Neuro systolically 175-195 * Continue home medications * Atrial Fibrillation on Coumadin out-pt * Monitor closely on telemetry * Hold Coumadin now pending CT HEAD AM * Neg Troponin/EKG currently * Fasting Lipid Panel; begin Atorvastatin now. Fluids/Renal: * Continue NSS at 50mL/hr to improve of hyponatremia * BUN/Cr WNL: monitor on daily labs Endocrine: * Out pt PO Synthroid converted to IV, Continue * Accu-Checks per protocol, started insulin infusion for 2 blood sugars greater than 180 * No outpt diagnosis of DM ID: * Not currently indicated; Afebrile; WBC WNL * U/A without signs of infection * Choudhary to gravity GI/Nutrition: * NPO pending formal speech eval Heme: * Monitor daily Access: * [address], Currently no indication for Arterial/Central Access DVT Prophylaxis: * Coumadin Held currently, INR now 2.3 Did discuss resuscitation status, pt stated she would want all measures attempted to save her life at this time. In the event of cardiac arrest pt would like CPR and intubation in the event of respiratory compromise. CCT: 60 Minutes; This time is exclusive of all separately billable procedures. Thank you for involving us in the care of this patient. Please refer to Dr. Marcos Shannon's addendum for further recommendations. I have personally evaluated and examined this patient. I agree with assessment and plan of Ayde Shepard PA-C. Fully anticoagulated, reported not a candidate for intravascular clot retrieval. MRI was obtained overnight, no obvious ischemic changes. Repeat head CT, negative for intracranial hemorrhagic transformation, restarted home meds, written for 2 mg Coumadin. Off nicardipine. Discussed with Dr. Rupert alonzo for downgraded to telemetry status.
[2016-09-11] VITALS (16 sets, daily range): BP systolic 100–156; BP diastolic 50–86; PULSE 53–74; TEMP 36.5–36.8; O2SAT 92–98
[2016-09-11] MEDS ORDERED: GADAVIST IV PRN (01:15)
[2016-09-11] MEDS ORDERED: NURSING VERBAL MED ORDER ONE (02:00)
[2016-09-11 05:29] LABS: BASO % 0.2 %; BASO ABS # 0.02 K/uL (0-0.2); COMPLETE YES; EOS % 0.2 %; HEMATOCRIT 40.2 % (37-47); IG% 0.1 %; LYMPH % 17.4 %; LYMPH ABS # 1.56 K/uL (1.2-3.4); MEAN CELL VOLUME 91.6 fL (80-100); MEAN CORPUSCULAR HEMOGLOBIN 32.1 pg (25-34); MEAN CORPUSCULAR HGB CONC 35.1 g/dl (32-36); MEAN PLATELET VOLUME 10.3 fL (7.4-10.4); MONO % 8.1 %; PLATELET COUNT 210 K/uL (130-400); RED BLOOD COUNT 4.39 M/uL (4.2-5.4); WHITE BLOOD COUNT 8.96 K/uL (4.8-10.8)
[2016-09-11 05:38] LABS: PARTIAL THROMBOPLASTIN RATIO 1.4; PROTHROMBIN TIME (PATIENT) 22.4 SECONDS (9.0-12.0)
[2016-09-11 05:47] LABS: BUN/CREATININE RATIO 15.1 (10-20); CALCIUM 8.6 mg/dl (8.5-10.1); CREATININE 0.66 mg/dl (0.60-1.20); MAGNESIUM 1.9 mg/dl (1.8-2.4); POTASSIUM 3.7 mmol/L (3.5-5.1)
[2016-09-11 05:58] LABS: CHOLESTEROL/HDL RATIO 3.1; PHOSPHORUS 2.9 mg/dl (2.5-4.9); THYROID STIMULATING HORMONE 1.35 uIu/ml (0.300-4.500)
[2016-09-11 06:21] LABS: ESTIMATED AVERAGE GLUCOSE 108 mg/dl; HA1C FLAG Normal (Normal)
--- NOTE | 2016-09-11 06:56 | DIAGNOSTIC IMAGING REPORT ---
MRA OF THE INTRACRANIAL CIRCULATION WITHOUT CONTRAST CLINICAL HISTORY: Stroke. COMPARISON STUDY: None. TECHNIQUE: Utilizing a 1.5 Shivani magnet and 3-D [id number] technique, unenhanced MRA of the intracranial circulation was obtained. FINDINGS: The bilateral M1, M2, A1 and A2 segments are patent. No abrupt vessel cut off is identified on this examination. The intracranial portion of the right vertebral artery is diminutive. No intracranial aneurysm is identified. There is persistence of the right posterior cerebral artery. IMPRESSION: Unremarkable MRA of the intracranial circulation for age. Electronically signed by: Santiago eLon M.D. 09/11/2016 6:53 AM Dictated Date/Time: 09/11/2016 6:51 AM
--- NOTE | 2016-09-11 07:00 | DIAGNOSTIC IMAGING REPORT ---
MRA OF THE NECK WITH AND WITHOUT CONTRAST CLINICAL HISTORY: Stroke. Memory difficulties. Fall. COMPARISON STUDY: None. TECHNIQUE: Unenhanced and contrast-enhanced MRA of the neck was performed. Injection of 8 mL of Gadavist IV was uneventful. NASCET criteria were utilized to estimate the degree of carotid stenosis. FINDINGS: The origin of the brachiocephalic trunk and the left common carotid artery are patent. There is no significant stenosis within the bilateral common carotid or internal carotid arteries. The vertebral arteries are suboptimally assessed on this exam. The left vertebral artery is dominant. The origins of the vertebral arteries are suboptimally assessed due to artifact. There is no evidence for dissection within the mid major vessels of the neck. IMPRESSION: 1. No significant stenosis within the bilateral common carotid and internal carotid arteries. 2. Suboptimal evaluation of the vertebral arteries due to artifact. Dominant left vertebral artery. Electronically signed by: Santiago Leon M.D. 09/11/2016 6:58 AM Dictated Date/Time: 09/11/2016 6:54 AM
--- NOTE | 2016-09-11 07:18 | DIAGNOSTIC IMAGING REPORT ---
MRI OF THE BRAIN COMBO CLINICAL HISTORY: Strokelike symptoms. Fall. Memory loss. COMPARISON STUDY: CT of the brain dated 09/10/2016. TECHNIQUE: MRI of the brain was performed utilizing various T1 and T2-weighted sequences in the axial, sagittal, and coronal planes. Contrast-enhanced sequences were acquired following the administration of 8 cc of Gadavist. FINDINGS: Brain parenchyma: There are age-related involutional changes noting mild subcortical and periventricular microangiopathic disease. There is no hemorrhage or mass effect. A chronic lacunar infarct is identified in the right basal ganglia. There is no restricted diffusion to suggest acute ischemia. No enhancing mass lesion is identified on the postcontrast images. Shankar-white matter differentiation is preserved. No extra-axial fluid collection is seen. The cerebellar tonsils are normal in configuration. Ventricles, sulci, and cisterns: Prominent secondary to involutional change. Pituitary and sella: Unremarkable. Intracranial vasculature: Normal flow voids are maintained at the skull base. Orbits: The bony orbits are grossly intact. Orbital contents are normal in appearance. Sinuses and mastoids: Clear. Calvarium: Unremarkable. Cervical cord: Partially visualized cervical spinal cord is normal in morphology and signal intensity. IMPRESSION: Senescent changes as above with no acute intracranial abnormality. Electronically signed by: Edgar Wen M.D. 09/11/2016 7:16 AM Dictated Date/Time: 09/11/2016 7:13 AM
--- NOTE | 2016-09-11 08:24 | DIAGNOSTIC IMAGING REPORT ---
CT OF THE HEAD WITHOUT CONTRAST CLINICAL HISTORY: Stroke. COMPARISON STUDY: Head CT and MRI the brain September 10, 2016. CT DOSE: 614.27 mGy.cm TECHNIQUE: Helical axial images of the head were obtained without IV contrast. Automated exposure control was utilized for the study. FINDINGS: No acute intracranial hemorrhage, midline shift or mass effect is present mild dilatation of the lateral ventricles is due to atrophy. The basilar cisterns are patent. There are no extra-axial collections. There is an old lacunar infarct within the right internal capsule. Visualized portions of the sinuses and mastoid air cells are clear. There are no significant calvarial abnormalities. IMPRESSION: No acute intracranial findings. Electronically signed by: Santiago Leon M.D. 09/11/2016 8:22 AM Dictated Date/Time: 09/11/2016 8:14 AM
[2016-09-11] MEDS: METOPROLOL SUCC 25MG EXT REL TAB PO SCH ×2 (08:58→20:40)
[2016-09-11] MEDS: DILTIAZEM HCL 120 MG EXT REL CAP PO SCH (08:58)
[2016-09-11] MEDS ORDERED: LEVOTHYROXINE SODIUM INJ 44 MCG in SYRINGE 0 ML IV SCH (09:00)
[2016-09-11] MEDS: ATORVASTATIN 40 MG TAB PO SCH (09:24)
--- NOTE | 2016-09-11 10:45 | Progress Note ---
Subjective Date of Service: Sep 11, 2016. Subjective Pt evaluation today including: conversation w/ patient, physical exam, lab review, review of studies, conversation w/ strategy consultant, review of inpatient medication list Saw/examined the patient in room 105; she is doing well today No residual symptoms, no motor dysfunction, no weakness, currently eating breakfast with no issues Problem List Medical Problems: (1) Acute CVA (cerebrovascular accident) Status: Acute Review of Systems Respiratory: No shortness of breath Cardiac: No chest pain Neurologic: No balance problems (uses cane for ambulation at baseline), No memory loss, No numbness/tingling, No paralysis, No vertigo, No weakness Medications Current Inpatient Medications Medications (Trade) Dose Ordered Sig/Areli Route Start Time Stop Time Status Last Admin Dose Admin Acetaminophen (Tylenol Tab) 650 mg Q4H PRN PO 09/10/16 19:15 10/10/16 19:14 Ondansetron HCl (Zofran Inj) 4 mg Q6H PRN IV 09/10/16 19:15 10/10/16 19:14 Miscellaneous Information (Pharmacist Discharge Med Rec Consult) 1 ea UD PRN N/A 09/10/16 19:30 10/10/16 19:29 Diltiazem HCl (TIAzac CAP) 120 mg DAILY PO 09/11/16 09:00 10/11/16 08:59 09/11/16 08:58 120 MG Metoprolol Succinate 25 mg 25 mg BID PO 09/10/16 21:00 10/10/16 20:59 09/11/16 08:58 25 MG Levothyroxine Sodium/Syringe (Synthroid Inj/ Syringe) 2.2 ml @ 2 mls/min DAILY@09 IV 09/11/16 09:00 10/11/16 08:59 09/11/16 08:58 2 MLS/MIN Atorvastatin Calcium (Lipitor Tab) 80 mg QAM PO 09/11/16 09:00 10/11/16 08:59 09/11/16 09:24 80 MG Gadobutrol (Gadavist) 8 mmol UD PRN IV 09/11/16 01:15 09/15/16 01:14 Objective Vital Signs Date Time Temp Pulse Resp B/P Pulse Ox O2 Delivery O2 Flow Rate FiO2 09/11/16 10:00 36.7 74 15 147/86 95 Room Air 09/11/16 08:00 36.7 64 15 131/72 93 Room Air 09/11/16 08:00 93 Room Air 09/11/16 06:00 59 15 100/50 93 09/11/16 05:00 57 16 104/50 95 09/11/16 04:00 36.7 09/11/16 04:00 61 19 111/54 97 09/11/16 04:00 95 Nasal Cannula 09/11/16 03:00 53 18 121/61 96 09/11/16 02:00 58 17 127/67 98 09/11/16 01:30 58 16 138/72 98 09/11/16 01:00 67 16 147/83 98 09/11/16 01:00 36.7 09/11/16 01:00 95 Nasal Cannula 2.0 09/11/16 00:54 70 18 156/76 98 09/10/16 20:30 36.6 73 19 160/87 95 Nasal Cannula 2.0 09/10/16 19:29 88 26 170/91 97 09/10/16 19:17 94 26 181/100 97 09/10/16 19:00 74 20 164/88 98 Nasal Cannula 3.0 09/10/16 18:45 87 22 188/98 97 09/10/16 18:29 70 22 157/108 97 09/10/16 18:24 84 20 166/88 98 09/10/16 18:21 75 25 98 09/10/16 18:16 79 18 99 09/10/16 18:15 182/95 09/10/16 18:11 63 21 99 09/10/16 18:06 78 20 99 09/10/16 18:05 197/100 09/10/16 18:01 70 23 98 09/10/16 18:00 188/92 09/10/16 17:56 80 23 188/107 99 09/10/16 17:51 68 20 100 09/10/16 17:50 208/108 09/10/16 17:46 70 21 99 09/10/16 17:45 187/107 09/10/16 17:41 71 24 99 09/10/16 17:36 207/129 09/10/16 17:35 77 26 99 09/10/16 17:31 189/105 09/10/16 17:30 75 24 99 09/10/16 17:26 205/157 09/10/16 17:25 78 100 09/10/16 17:20 76 181/92 99 09/10/16 17:19 Room Air 3.0 09/10/16 17:15 80 99 09/10/16 17:10 80 205/117 99 09/10/16 17:05 82 190/120 99 09/10/16 17:00 81 216/96 97 09/10/16 16:56 75 09/10/16 16:55 75 98 09/10/16 16:54 97 Room Air 09/10/16 16:53 205/125 09/10/16 16:48 203/106 09/10/16 16:24 36.7 75 18 203/106 93 Room Air Physical Exam General Appearance: no apparent distress Respiratory/Chest: lungs clear, normal breath sounds, no respiratory distress, no accessory muscle use Cardiovascular: regular rate, rhythm, no edema, no murmur Extremities: normal inspection, no pedal edema Neurologic/Psychiatric: director of annual giving II-XII nml as tested, no motor/sensory deficits, alert, normal mood/affect, oriented x 3 Laboratory Results Last 24 Hours Test 09/10/16 16:08 09/10/16 16:53 09/11/16 04:51 09/11/16 06:24 White Blood Count 7.63 K/uL 8.96 K/uL Red Blood Count 4.66 M/uL 4.39 M/uL Hemoglobin 15.1 g/dL 14.1 g/dL Hematocrit 43.3 % 40.2 % Mean Corpuscular Volume 92.9 fL 91.6 fL Mean Corpuscular Hemoglobin 32.4 pg 32.1 pg Mean Corpuscular Hemoglobin Concent 34.9 g/dl 35.1 g/dl Platelet Count 227 K/uL 210 K/uL Mean Platelet Volume 10.8 fL 10.3 fL Neutrophils (%) (Auto) 65.3 % 74.0 % Lymphocytes (%) (Auto) 23.9 % 17.4 % Monocytes (%) (Auto) 8.4 % 8.1 % Eosinophils (%) (Auto) 1.8 % 0.2 % Basophils (%) (Auto) 0.3 % 0.2 % Neutrophils # (Auto) 4.99 K/uL 6.62 K/uL Lymphocytes # (Auto) 1.82 K/uL 1.56 K/uL Monocytes # (Auto) 0.64 K/uL 0.73 K/uL Eosinophils # (Auto) 0.14 K/uL 0.02 K/uL Basophils # (Auto) 0.02 K/uL 0.02 K/uL RDW Standard Deviation 44.5 fL 42.9 fL RDW Coefficient of Variation 13.0 % 12.7 % Immature Granulocyte % (Auto) 0.3 % 0.1 % Immature Granulocyte # (Auto) 0.02 K/uL 0.01 K/uL Prothrombin Time 25.0 SECONDS 22.4 SECONDS Prothromb Time International Ratio 2.3 2.0 Activated Partial Thromboplast Time 37.1 SECONDS 36.3 SECONDS Partial Thromboplastin Ratio 1.4 1.4 Sodium Level 131 mmol/L 129 mmol/L Potassium Level 4.0 mmol/L 3.7 mmol/L Chloride Level 94 mmol/L 94 mmol/L Carbon Dioxide Level 28 mmol/L 26 mmol/L Anion Gap 9.0 mmol/L 9.0 mmol/L Blood Urea Nitrogen 11 mg/dl 10 mg/dl Creatinine 0.77 mg/dl 0.66 mg/dl Est Creatinine Clear Calc Drug Dose 63.4 ml/min 78.5 ml/min Estimated GFR () 84.5 96.7 Estimated GFR (Non- 72.9 83.4 BUN/Creatinine Ratio 14.2 15.1 Random Glucose 88 mg/dl 109 mg/dl Estimated Average Glucose 108 mg/dl Hemoglobin A1c 5.4 % Calcium Level 9.3 mg/dl 8.6 mg/dl Total Bilirubin 0.6 mg/dl Direct Bilirubin < 0.1 mg/dl Aspartate Amino Transf (AST/SGOT) 21 U/L Alanine Aminotransferase (ALT/SGPT) 23 U/L Alkaline Phosphatase 77 U/L Total Creatine Kinase 93 U/L Creatine Kinase MB 1.8 ng/ml Creatine Kinase MB Ratio 1.9 Troponin I < 0.015 ng/ml Total Protein 8.1 gm/dl Albumin 4.1 gm/dl Bedside Prothrombin Time INR 2.3 Phosphorus Level 2.9 mg/dl Magnesium Level 1.9 mg/dl Triglycerides Level 86 mg/dl Cholesterol Level 188 mg/dl HDL Cholesterol 60 mg/dl LDL Cholesterol, Calculated 111 mg/dl VLDL Cholesterol, Calculated 17 mg/dl Cholesterol/HDL Ratio 3.1 Thyroid Stimulating Hormone (TSH) 1.350 uIu/ml Bedside Glucose 105 mg/dl Assessment and Plan This is an 81 year old female with PMH of paroxysmal atrial fibrillation on Coumadin, HTN, hypothyroidism, anxiety presents with aphasia Aphasia r/o CVA symptoms have resolved patient had initial head CT on admission = no acute findings Brain MRI, MRA of head/neck = no acute findings repeat Head CT on 09/11 - no hemorrhage, infarct, mass noted currently holding aspirin and Coumadin - will await neuro input prior to restarting continue high-intensity statin as tolerated PT/OT/speech pending discharge planning - may need rehab vs. home PT Hypertensive Urgency patient was initially on nicardipine drip due to BP >200/100 now off of the drip, with good blood pressures continue metoprolol Atrial Fibrillation currently in NSR continue b-carmine holding Coumadin for now repeat Head CT is negative if okay with neurology, will restart Coumadin today Hypothyroidism switch back to PO Synthroid DVT ppx INR = 2.0; restart Coumadin on 09/11 FULL CODE
--- NOTE | 2016-09-11 11:26 | ECHOCARDIOGRAM REPORT ---
*NOTICE TO RECEIVING [employer]Y This information is strictly Confidential and protected under [place] law. [place] law prohibits you from making any further disclosure of this information unless further disclosure is expressly permitted by the written consent of the person to whom it pertains or is authorized by law. A general authorization for the release of medical or other information is not sufficient for this purpose. Hospital accepts no responsibility if the information is made available to any other person, INCLUDING THE PATIENT. Interpretation Summary * Name: NANCY SCHMIDT Study Date: 09/11/2016 07:01 AM BP: 111/54 mmHg * Patient Location: .[facility]ICU\S\E105\S\1 HR: 61 * : 1935 (M/d/yyyy) Gender: Female Height: 66 in * Age: 81 yrs Ethnicity: [place] Weight: 184 lb * Ordering Physician: Dominique Conley * Referring Physician: Self, Referred * Performed By: Savanna Strauss RCS * * Reason For Study: A-FIB * BSA: 1.9 m2 * -- Conclusions -- * Left ventricular systolic function is normal. * Grade I diastolic dysfunction, (abnormal relaxation pattern). * Right ventricular systolic pressure is normal. * Compared to an echocardiogram from 2011, there is little change Procedure Details * A complete two-dimensional transthoracic echocardiogram was performed (2D, M-mode, Doppler and color flow Doppler). Left Ventricle * The left ventricle is normal in size. * There is normal left ventricular wall thickness. * Ejection Fraction = 60-65%. * Left ventricular systolic function is normal. * Grade I diastolic dysfunction, (abnormal relaxation pattern). Right Ventricle * The right ventricle is normal in size and function. Atria * The left atrial size is normal. * Right atrial size is normal. Mitral Valve * The mitral valve anatomy is normal. * Significant mitral regurgitation is absent. Tricuspid Valve * The tricuspid valve is not well visualized, but is grossly normal. * There is mild tricuspid regurgitation. * Right ventricular systolic pressure is normal. Aortic Valve * The aortic valve is normal in structure and function. * No hemodynamically significant valvular aortic stenosis. * Trace aortic regurgitation. Great Vessels * The aortic root is normal size. Pericardium/Pleural * There is no pericardial effusion. Great Vessels * Normal inferior vena cava size and collapsability with sniff indicates a normal right atrial pressure of 3 mmHg MMode 2D Measurements and Calculations IVSd 1.0 cm IVSs 1.0 cm LVIDd 4.6 cm LVIDs 2.9 cm LVPWd 1.0 cm LVPWs 1.0 cm IVS/LVPW 1.0 FS 38.1 % EDV(Teich) 99.4 ml ESV(Teich) 31.5 ml EF(Teich) 68.3 % EDV(cubed) 100.0 ml ESV(cubed) 23.8 ml EF(cubed) 76.2 % % IVS thick -0.45 % % LVPW thick 3.5 % LV mass(C)d 167.1 grams LV mass(C)dI 86.5 grams/m\S\2 LV mass(C)s 82.3 grams LV mass(C)sI 42.6 grams/m\S\2 CO(Teich) 4.3 l/min CI(Teich) 2.2 l/min/m\S\2 SV(Teich) 67.9 ml SI(Teich) 35.2 ml/m\S\2 CO(cubed) 4.9 l/min CI(cubed) 2.5 l/min/m\S\2 SV(cubed) 76.2 ml SI(cubed) 39.5 ml/m\S\2 Ao root diam 3.9 cm Ao root area 12.2 cm\S\2 ACS 1.7 cm LA dimension 4.1 cm LA/Ao 1.0 LVAd ap4 30.9 cm\S\2 LVLd ap4 8.0 cm EDV(MOD-sp4) 99.0 ml LVAs ap4 15.7 cm\S\2 LVLs ap4 6.0 cm ESV(MOD-sp4) 34.0 ml EF(MOD-sp4) 65.7 % LVAd ap2 24.5 cm\S\2 LVLd ap2 7.8 cm EDV(MOD-sp2) 65.0 ml LVAs ap2 14.2 cm\S\2 LVLs ap2 6.1 cm ESV(MOD-sp2) 28.0 ml EF(MOD-sp2) 56.9 % CO(MOD-sp4) 4.2 l/min CI(MOD-sp4) 2.2 l/min/m\S\2 SV(MOD-sp4) 65.0 ml SI(MOD-sp4) 33.7 ml/m\S\2 CO(MOD-sp2) 2.4 l/min CI(MOD-sp2) 1.2 l/min/m\S\2 SV(MOD-sp2) 37.0 ml SI(MOD-sp2) 19.2 ml/m\S\2 Doppler Measurements and Calculations MV E max vicky 51.5 cm/sec MV A max vicky 71.3 cm/sec MV E/A 0.72 MV P1/2t max vicky 58.6 cm/sec MV P1/2t 61.8 msec MVA(P1/2t) 3.6 cm\S\2 MV dec slope 278.1 cm/sec\S\2 MV dec time 0.34 sec Ao V2 max 118.3 cm/sec Ao max PG 5.6 mmHg Ao max PG (full) 3.0 mmHg LV V1 max PG 2.6 mmHg LV V1 max 80.5 cm/sec PA V2 max 82.5 cm/sec PA max PG 2.7 mmHg TR max vicky 229.1 cm/sec
[2016-09-11] MEDS ORDERED: hydrOXYzine HCL 10 MG TAB PO PRN (12:00)
--- NOTE | 2016-09-11 14:03 | Clinical Documentation Query ---
CLINICAL DOCUMENTATION QUERY Dr. GUY, In your clinical opinion is this patient being managed for: ( ) Transient cerebral ischemic attack causing presenting symptoms ( ) Other explanation of clinical findings (Please Explain) ( ) Unable to determine (Please Define) ( ) Need to Discuss ( ) Not Agree The medical record reflects the following clinical findings, treatment, and risk factors. Clinical Indicators: 81 yo female presenting with aphasia, R sided facial droop and R sided weakness. Initial CT head without acute findings, Brain MRI/MRA head and neck no acute findings and repeated CT head again without acute findings. AlL initial presenting symptoms have resolved within 24 hours Treatment: neurology consult pending, lipitor, resume coumadin when INR acceptable, Risk Factors: age, HTN, A fib Please clarify and document your clinical opinion in the progress notes and discharge summary. Terms such as "probable", "suspected", "likely", "questionable", "possible", or "still to be ruled out" are acceptable. IF IN AGREEMENT, YOU MUST DOCUMENT ABOVE DIAGNOSTIC STATEMENT IN DAILY PROGRESS NOTES AND DISCHARGE SUMMARY. This document is not part of the patient's record. Thank You, Stephanie Rayo RN [phone]
--- NOTE | 2016-09-11 15:37 | Neurology Consultation ---
Neurology Consultation Date of Consultation: Sep 11, 2016. Attending Physician: Sedrick Emery DO Primary Care Physician: Dee Rivera M.D. Reason for Consultation: acute CVA History of Present Illness Source: patient, family, spouse Arlene is a 81 year old female with PMH of Afib on Coumadin, HTN, and hypothyroidism. She states that they were shopping in [place] when the patient stated that she was dizzy and had blurry vision. She then apparently developed a right facial droop and had some difficulty walking. Her speech was very slurred and she seemed confused. She could not find the correct words to say, and sometimes wouldn't speak at all. Her took her home and then EMS was called by a neighbor. As stroke alert was called CT head was negative. It was decided that patient could not have TPA or clot retrieval d/t INR of 2.3 and unknown onset of symptoms. BP is elevated >190 systolically. A nicardipine drip was started and she was transferred to the . She states the word finding difficulties continued for the remainder of the day with some confusion. She feels she is now back to baseline. She did not fall during this episode and at baseline she walks with a walker. She denies fevers, chills, URI symptoms, chest pain, SOB, nausea, vomiting, diarrhea, dysuria, calf pain and edema. Past Medical/Surgical History Medical Problems: (1) Acute CVA (cerebrovascular accident) Status: Acute Social History Smoking Status: Never smoker Alcohol Use: none Marital Status: Housing Status: lives with significant other Occupation Status: retired Allergies Coded Allergies: Amiodarone (Verified Allergy, Unknown, weight loss, 12/11/13) Current Inpatient Medications Current Inpatient Medications Medications (Trade) Dose Ordered Sig/Areli Route Start Time Stop Time Status Last Admin Dose Admin Acetaminophen (Tylenol Tab) 650 mg Q4H PRN PO 09/10/16 19:15 10/10/16 19:14 Ondansetron HCl (Zofran Inj) 4 mg Q6H PRN IV 09/10/16 19:15 10/10/16 19:14 Miscellaneous Information (Pharmacist Discharge Med Rec Consult) 1 ea UD PRN N/A 09/10/16 19:30 10/10/16 19:29 Diltiazem HCl (TIAzac CAP) 120 mg DAILY PO 09/11/16 09:00 10/11/16 08:59 09/11/16 08:58 120 MG Metoprolol Succinate (Toprol Xl Tab) 25 mg BID PO 09/10/16 21:00 10/10/16 20:59 09/11/16 08:58 25 MG Atorvastatin Calcium (Lipitor Tab) 80 mg QAM PO 09/11/16 09:00 10/11/16 08:59 09/11/16 09:24 80 MG Gadobutrol (Gadavist) 8 mmol UD PRN IV 09/11/16 01:15 09/15/16 01:14 Levothyroxine Sodium (Synthroid Tab) 88 mcg DAILYBB PO 09/12/16 06:00 10/12/16 05:59 Warfarin Sodium (Coumadin Tab) 2 mg TODAY@1600 PO 09/11/16 16:00 09/11/16 16:01 Calcium/Vitamin D (Caltrate Plus Tab) 1 tab BID PO 09/11/16 21:00 10/11/16 20:59 Docusate Sodium (coLACE CAP) 100 mg PM PO 09/11/16 21:00 10/11/16 20:59 Hydroxyzine HCl (Vistaril Tab) 5-10MG PER HOME DOSING QID PRN PO 09/11/16 12:00 10/11/16 11:59 Magnesium Oxide (Mag-Ox Tab) 400 mg QDD PO 09/11/16 16:30 10/11/16 16:29 Physical Exam Vital Signs (Past 24 Hrs): Date Time Temp Pulse Resp B/P Pulse Ox O2 Delivery O2 Flow Rate FiO2 09/11/16 12:00 95 Room Air 09/11/16 12:00 36.8 57 20 132/72 92 Room Air 09/11/16 10:00 36.7 74 15 147/86 95 Room Air 09/11/16 08:57 95 09/11/16 08:00 36.7 64 15 131/72 93 Room Air 09/11/16 08:00 93 Room Air 09/11/16 06:00 59 15 100/50 93 09/11/16 05:00 57 16 104/50 95 09/11/16 04:00 36.7 09/11/16 04:00 61 19 111/54 97 09/11/16 04:00 95 Nasal Cannula 09/11/16 03:00 53 18 121/61 96 09/11/16 02:00 58 17 127/67 98 09/11/16 01:30 58 16 138/72 98 09/11/16 01:00 67 16 147/83 98 09/11/16 01:00 36.7 09/11/16 01:00 95 Nasal Cannula 2.0 09/11/16 00:54 70 18 156/76 98 09/10/16 20:30 36.6 73 19 160/87 95 Nasal Cannula 2.0 09/10/16 19:29 88 26 170/91 97 09/10/16 19:17 94 26 181/100 97 09/10/16 19:00 74 20 164/88 98 Nasal Cannula 3.0 09/10/16 18:45 87 22 188/98 97 09/10/16 18:29 70 22 157/108 97 09/10/16 18:24 84 20 166/88 98 09/10/16 18:21 75 25 98 09/10/16 18:16 79 18 99 09/10/16 18:15 182/95 09/10/16 18:11 63 21 99 09/10/16 18:06 78 20 99 09/10/16 18:05 197/100 09/10/16 18:01 70 23 98 09/10/16 18:00 188/92 09/10/16 17:56 80 23 188/107 99 09/10/16 17:51 68 20 100 09/10/16 17:50 208/108 09/10/16 17:46 70 21 99 09/10/16 17:45 187/107 09/10/16 17:41 71 24 99 09/10/16 17:36 207/129 09/10/16 17:35 77 26 99 09/10/16 17:31 189/105 09/10/16 17:30 75 24 99 09/10/16 17:26 205/157 09/10/16 17:25 78 100 09/10/16 17:20 76 181/92 99 09/10/16 17:19 Room Air 3.0 09/10/16 17:15 80 99 09/10/16 17:10 80 205/117 99 09/10/16 17:05 82 190/120 99 09/10/16 17:00 81 216/96 97 09/10/16 16:56 75 09/10/16 16:55 75 98 09/10/16 16:54 97 Room Air 09/10/16 16:53 205/125 09/10/16 16:48 203/106 09/10/16 16:24 36.7 75 18 203/106 93 Room Air Physical Exam: Constitutional: appearance nourished, healthy and normal Ears, Nose, Mouth and Throat: mucous membranes moist, no injection and skin normal, eyes normal Cardiovascular: irregular Respiratory: clear to auscultation (CTA) and no rales, rhonchi or wheeze Musculoskeletal: no peripheral edema and good distal pulses Skin: no stigmata of neurocutaneous disease noted and normal and intact Eyes: extraocular muscles intact (EOMI) and pupils equal, round and reactive to light (PERRL), miotic NEUROLOGIC EXAMINATION: Mental status: Alert and interactive Oriented to full date and location Oriented to person Speech fluent with no evidence of aphasia Cranial Nerves smile and eye brow raise symmetric, tongue midline Reflexes: Deep tendon reflexes were symmetrical and graded 2/5. Plantar responses were flexor. Sensory: decreased sensation LE from sheldon to foot with vibration, cool touch and absent GT proprioception Coordination: finger to nose with no bi pass, no tremor Gait/Stance: lying in bed Motor: Negative for pronator drift of out stretched arms with eyes closed. Strength: biceps triceps deltoids hand desktop administrator bilaterally 5/5 hip flex plantar flex ext bilaterally 5/5 Laboratory Results Past 24 Hours: 09/11/16 04:51 Red Blood Count 4.39, Mean Corpuscular Volume 91.6, Mean Corpuscular Hemoglobin 32.1, Mean Corpuscular Hemoglobin Concent 35.1, Mean Platelet Volume 10.3, Neutrophils (%) (Auto) 74.0, Lymphocytes (%) (Auto) 17.4, Monocytes (%) (Auto) 8.1, Eosinophils (%) (Auto) 0.2, Basophils (%) (Auto) 0.2, Neutrophils # (Auto) 6.62, Lymphocytes # (Auto) 1.56, Monocytes # (Auto) 0.73, Eosinophils # (Auto) 0.02, Basophils # (Auto) 0.02 09/11/16 04:51 Test 09/10/16 16:08 09/10/16 16:53 09/11/16 04:51 09/11/16 06:24 Estimated Average Glucose 108 mg/dl Hemoglobin A1c 5.4 % (4.5-5.6) Total Bilirubin 0.6 mg/dl (0.2-1) Direct Bilirubin < 0.1 mg/dl (0-0.2) Aspartate Amino Transf (AST/SGOT) 21 U/L (15-37) Alanine Aminotransferase (ALT/SGPT) 23 U/L (12-78) Alkaline Phosphatase 77 U/L (45-117) Total Creatine Kinase 93 U/L (26-192) Creatine Kinase MB 1.8 ng/ml (0.5-3.6) Creatine Kinase MB Ratio 1.9 (0-3.0) Troponin I < 0.015 ng/ml (0-0.045) Total Protein 8.1 gm/dl (6.4-8.2) Albumin 4.1 gm/dl (3.4-5.0) Bedside Prothrombin Time INR 2.3 (0.9-1.1) White Blood Count 8.96 K/uL (4.8-10.8) Red Blood Count 4.39 M/uL (4.2-5.4) Hemoglobin 14.1 g/dL (12.0-16.0) Hematocrit 40.2 % (37-47) Mean Corpuscular Volume 91.6 fL (80-100) Mean Corpuscular Hemoglobin 32.1 pg (25-34) Mean Corpuscular Hemoglobin Concent 35.1 g/dl (32-36) Platelet Count 210 K/uL (130-400) Mean Platelet Volume 10.3 fL (7.4-10.4) Neutrophils (%) (Auto) 74.0 % Lymphocytes (%) (Auto) 17.4 % Monocytes (%) (Auto) 8.1 % Eosinophils (%) (Auto) 0.2 % Basophils (%) (Auto) 0.2 % Neutrophils # (Auto) 6.62 K/uL (1.4-6.5) Lymphocytes # (Auto) 1.56 K/uL (1.2-3.4) Monocytes # (Auto) 0.73 K/uL (0.11-0.59) Eosinophils # (Auto) 0.02 K/uL (0-0.5) Basophils # (Auto) 0.02 K/uL (0-0.2) RDW Standard Deviation 42.9 fL (36.4-46.3) RDW Coefficient of Variation 12.7 % (11.5-14.5) Immature Granulocyte % (Auto) 0.1 % Immature Granulocyte # (Auto) 0.01 K/uL (0.00-0.02) Prothrombin Time 22.4 SECONDS (9.0-12.0) Prothromb Time International Ratio 2.0 (0.9-1.1) Activated Partial Thromboplast Time 36.3 SECONDS (21.0-31.0) Partial Thromboplastin Ratio 1.4 Anion Gap 9.0 mmol/L (3-11) Est Creatinine Clear Calc Drug Dose 78.5 ml/min Estimated GFR () 96.7 Estimated GFR (Non- 83.4 BUN/Creatinine Ratio 15.1 (10-20) Calcium Level 8.6 mg/dl (8.5-10.1) Phosphorus Level 2.9 mg/dl (2.5-4.9) Magnesium Level 1.9 mg/dl (1.8-2.4) Triglycerides Level 86 mg/dl (0-150) Cholesterol Level 188 mg/dl (0-200) HDL Cholesterol 60 mg/dl LDL Cholesterol, Calculated 111 mg/dl VLDL Cholesterol, Calculated 17 mg/dl Cholesterol/HDL Ratio 3.1 Thyroid Stimulating Hormone (TSH) 1.350 uIu/ml (0.300-4.500) Bedside Glucose 105 mg/dl (70-90) Date/Time Source Procedure Growth Status 09/10/16 20:00 Nasal MRSA DNA Surveillance Screen - Final Specimen Negative for MRSA by DNA Probe Complete Imaging CT head- Findings: The paranasal sinuses and mastoid air cells are clear. The calvarium and skull base are intact. The ventricles and sulci are within normal limits.There is no mass, hematoma, midline shift, or acute infarct. 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 No acute intracranial hemorrhage. No midline shift. Mild age-related atrophy. MRA brain- The bilateral M1, M2, A1 and A2 segments are patent. No abrupt vessel cut off is identified on this examination. The intracranial portion of the right vertebral artery is diminutive. No intracranial aneurysm is identified. There is persistence of the right posterior cerebral artery. MRI brain with and without- FINDINGS: The origin of the brachiocephalic trunk and the left common carotid artery are patent. There is no significant stenosis within the bilateral common carotid or internal carotid arteries. The vertebral arteries are suboptimally assessed on this exam. The left vertebral artery is dominant. The origins of the vertebral arteries are suboptimally assessed due to artifact. There is no evidence for dissection within the mid major vessels of the neck. repeat CT head- : No acute intracranial findings. TTE no bubble study Left ventricular systolic function is normal. * Grade I diastolic dysfunction, (abnormal relaxation pattern). * Right ventricular systolic pressure is normal. * Compared to an echocardiogram from 2011, there is little change Impression 81 year old female a fib on coumadin -therapeutic 2.3 on arrival-CVA like symptoms Plan 1. MRI with and without no acute findings- old infarcts 2. MRA brain with no intracranial abnormalities 3. MRA neck-no significant stenosis 4. PT/OT speech for any discharge needs 5. aspirin 81 mg daily along with therapeutic Coumadin level 6. optimize blood pressure and lipid control- was elevated upon arrival 7. continue ambulation with cane significant feeling loss in feet can cause balance issues and falls 8. EEG for completeness 9. may have been hypertensive encephalopathy I have seen and discussed above patient care and management with Dr Kizzy Shultz, neurology One day of L facial droop, word finding diff with neg imaging, no obvious tox/ metab etiology. Possibly hypertensive encephalopathy. Risk factors are otherwise well managed. EEG rec. YARY Shultz MD
[2016-09-11] MEDS ORDERED: WARFARIN SOD 2 MG TAB PO SCH (16:00)
[2016-09-11] MEDS: MAGNESIUM OXIDE 400 MG TAB PO SCH ×2 (16:48→17:07)
[2016-09-11] MEDS: CALCIUM 600MG + VIT D 400 IU TAB PO SCH (20:40)
[2016-09-11] MEDS ORDERED: DOCUSATE SODIUM 100 MG CAP PO SCH (21:00)
[2016-09-12] VITALS (7 sets, daily range): BP systolic 99–161; BP diastolic 59–84; PULSE 55–60; TEMP 36.6–36.9; O2SAT 93–96
[2016-09-12 05:54] LABS: BASO % 0.2 %; BASO ABS # 0.01 K/uL (0-0.2); COMPLETE YES; EOS % 2.5 %; HEMATOCRIT 40.2 % (37-47); IG% 0.2 %; LYMPH % 27.9 %; LYMPH ABS # 1.68 K/uL (1.2-3.4); MEAN CELL VOLUME 91.8 fL (80-100); MEAN CORPUSCULAR HGB CONC 34.8 g/dl (32-36); MEAN PLATELET VOLUME 10.1 fL (7.4-10.4); MONO % 12.3 %; NEUT % 56.9 %; PLATELET COUNT 198 K/uL (130-400); RED BLOOD COUNT 4.38 M/uL (4.2-5.4); WHITE BLOOD COUNT 6.02 K/uL (4.8-10.8)
[2016-09-12] MEDS ORDERED: LEVOTHYROXINE 88 MCG TAB PO SCH (06:00)
[2016-09-12 06:02] LABS: INR 1.9 (0.9-1.1); PARTIAL THROMBOPLASTIN RATIO 1.4; PROTHROMBIN TIME (PATIENT) 20.9 SECONDS (9.0-12.0)
[2016-09-12 06:12] LABS: BUN/CREATININE RATIO 21.1 (10-20); CALCIUM 8.8 mg/dl (8.5-10.1); CREATININE 0.91 mg/dl (0.60-1.20); MAGNESIUM 2.1 mg/dl (1.8-2.4)
[2016-09-12] MEDS: ATORVASTATIN 40 MG TAB PO SCH (08:12)
[2016-09-12] MEDS: METOPROLOL SUCC 25MG EXT REL TAB PO SCH (08:13)
[2016-09-12] MEDS: CALCIUM 600MG + VIT D 400 IU TAB PO SCH (08:14)
[2016-09-12] MEDS: DILTIAZEM HCL 120 MG EXT REL CAP PO SCH (08:16)
--- NOTE | 2016-09-12 15:23 | ELECTROENCEPHALOGRAPH REPORT ---
REQUESTING: Kizzy Garcia PA-C. CLINICAL DIAGNOSIS: Acute cerebrovascular accident, left hemisphere. EEG DIAGNOSIS: Mildly focally slow recording left frontal during wakefulness. DESCRIPTION OF TRACING: This EEG was done as a bedside recording. A simultaneous video analysis of patient movement and behavior was obtained. Photic stimulation was performed. Drowsiness and light sleep were not recorded. During apparent wakefulness, there is evidence for a background rhythm in the lower alpha range about 9 Hz of maximum frequency and 30 microvolts of maximum amplitude. This is maximum posterior head regions and bilaterally symmetrical. Polymorphic mid frequency theta activity is seen in normal amounts over the right hemisphere, but over the left frontal region this shifts into slightly lower frequency theta range and is accompanied by some polymorphic low amplitude delta activity. No potentially epileptogenic activity is seen. Anterior head region maximum bilaterally symmetrical low voltage fast activity in the beta range is present. Photic stimulation provokes a modest driving response without a photomyogenic or photoparoxysmal component. At no time during the waking tracing is there evidence for potentially epileptogenic activity in the form of polyspike or spike wave bursts, focal sharp waves or focal spikes. INTERPRETATION: This EEG reveals at most mild focal slow wave activity over the left frontal region which could correlate with the presence of a structural lesion in that area. Clinical correlation is required. There is no associated potentially epileptogenic activity however. MTDD
--- NOTE | 2016-09-12 15:41 | Progress Note ---
Subjective Date of Service: Sep 12, 2016. Subjective Pt evaluation today including: conversation w/ patient, physical exam, lab review, review of studies, conversation w/ farm consultant, review of inpatient medication list Saw/examined the patient in room 284 No problems/issues to note, very eager to get home Denies any symptoms Problem List Medical Problems: (1) Acute CVA (cerebrovascular accident) Status: Acute Review of Systems Respiratory: No shortness of breath Cardiac: No chest pain, No palpitations Neurologic: No balance problems, No memory loss, No numbness/tingling, No paralysis, No vertigo, No weakness Medications Current Inpatient Medications Medications (Trade) Dose Ordered Sig/Areli Route Start Time Stop Time Status Last Admin Dose Admin Acetaminophen (Tylenol Tab) 650 mg Q4H PRN PO 09/10/16 19:15 10/10/16 19:14 Ondansetron HCl (Zofran Inj) 4 mg Q6H PRN IV 09/10/16 19:15 10/10/16 19:14 Miscellaneous Information (Pharmacist Discharge Med Rec Consult) 1 ea UD PRN N/A 09/10/16 19:30 10/10/16 19:29 Diltiazem HCl (TIAzac CAP) 120 mg DAILY PO 09/11/16 09:00 10/11/16 08:59 09/12/16 08:16 120 MG Metoprolol Succinate (Toprol Xl Tab) 25 mg BID PO 09/10/16 21:00 10/10/16 20:59 09/12/16 08:13 25 MG Atorvastatin Calcium (Lipitor Tab) 80 mg QAM PO 09/11/16 09:00 10/11/16 08:59 09/12/16 08:12 80 MG Gadobutrol (Gadavist) 8 mmol UD PRN IV 09/11/16 01:15 09/15/16 01:14 Levothyroxine Sodium (Synthroid Tab) 88 mcg DAILYBB PO 09/12/16 06:00 10/12/16 05:59 09/12/16 06:45 88 MCG Calcium/Vitamin D (Caltrate Plus Tab) 1 tab BID PO 09/11/16 21:00 10/11/16 20:59 09/12/16 08:14 1 TAB Docusate Sodium (coLACE CAP) 100 mg PM PO 09/11/16 21:00 10/11/16 20:59 09/11/16 20:40 100 MG Hydroxyzine HCl (Vistaril Tab) 5-10MG PER HOME DOSING QID PRN PO 09/11/16 12:00 10/11/16 11:59 Magnesium Oxide (Mag-Ox Tab) 400 mg QDD PO 09/11/16 16:30 10/11/16 16:29 09/11/16 17:07 400 MG Warfarin Sodium (Coumadin Tab) 4 mg TODAY@1600 PO 09/12/16 16:00 09/12/16 18:00 Objective Vital Signs Date Time Temp Pulse Resp B/P Pulse Ox O2 Delivery O2 Flow Rate FiO2 09/12/16 15:10 36.6 57 16 161/70 94 Room Air 09/12/16 12:00 Room Air 09/12/16 11:45 36.9 58 16 152/69 93 Room Air 09/12/16 08:30 Room Air 09/12/16 08:15 36.6 60 16 152/84 95 Room Air 09/12/16 07:57 36.6 60 16 152/84 95 Room Air 09/12/16 05:14 36.7 57 16 137/73 96 Room Air 09/12/16 04:00 Room Air 09/12/16 01:06 36.7 55 14 99/59 96 Room Air 09/12/16 00:00 Room Air 09/11/16 20:38 73 153/75 09/11/16 20:00 Room Air 09/11/16 19:49 36.5 59 18 145/73 94 Room Air 09/11/16 16:00 95 Room Air Physical Exam General Appearance: no apparent distress Respiratory/Chest: no respiratory distress, no accessory muscle use Cardiovascular: regular rate, rhythm, no edema, no murmur Neurologic/Psychiatric: 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, no motor/sensory deficits, alert, normal mood/affect, oriented x 3 Laboratory Results Last 24 Hours Test 09/12/16 05:39 White Blood Count 6.02 K/uL Red Blood Count 4.38 M/uL Hemoglobin 14.0 g/dL Hematocrit 40.2 % Mean Corpuscular Volume 91.8 fL Mean Corpuscular Hemoglobin 32.0 pg Mean Corpuscular Hemoglobin Concent 34.8 g/dl Platelet Count 198 K/uL Mean Platelet Volume 10.1 fL Neutrophils (%) (Auto) 56.9 % Lymphocytes (%) (Auto) 27.9 % Monocytes (%) (Auto) 12.3 % Eosinophils (%) (Auto) 2.5 % Basophils (%) (Auto) 0.2 % Neutrophils # (Auto) 3.43 K/uL Lymphocytes # (Auto) 1.68 K/uL Monocytes # (Auto) 0.74 K/uL Eosinophils # (Auto) 0.15 K/uL Basophils # (Auto) 0.01 K/uL RDW Standard Deviation 43.2 fL RDW Coefficient of Variation 12.9 % Immature Granulocyte % (Auto) 0.2 % Immature Granulocyte # (Auto) 0.01 K/uL Prothrombin Time 20.9 SECONDS Prothromb Time International Ratio 1.9 Activated Partial Thromboplast Time 35.5 SECONDS Partial Thromboplastin Ratio 1.4 Sodium Level 130 mmol/L Potassium Level 4.0 mmol/L Chloride Level 95 mmol/L Carbon Dioxide Level 29 mmol/L Anion Gap 6.0 mmol/L Blood Urea Nitrogen 19 mg/dl Creatinine 0.91 mg/dl Est Creatinine Clear Calc Drug Dose 56.7 ml/min Estimated GFR () 69.1 Estimated GFR (Non- 59.6 BUN/Creatinine Ratio 21.1 Random Glucose 87 mg/dl Calcium Level 8.8 mg/dl Magnesium Level 2.1 mg/dl Assessment and Plan This is an 81 year old female with PMH of paroxysmal atrial fibrillation on Coumadin, HTN, hypothyroidism, anxiety presents with aphasia Aphasia r/o CVA 09/12 appreciate neurology input likely hypertensive encephalopathy Head CT negative x 2, MRI, MRA negative, EEG with no acute findings will d/c home today with home PT 09/11 symptoms have resolved patient had initial head CT on admission = no acute findings Brain MRI, MRA of head/neck = no acute findings repeat Head CT on 09/11 - no hemorrhage, infarct, mass noted currently holding aspirin and Coumadin - will await neuro input prior to restarting continue high-intensity statin as tolerated PT/OT/speech pending discharge planning - may need rehab vs. home PT Hypertensive Urgency 09/12 continue diltiazem added lisinopril outpatient PCP follow-up regarding blood pressure 09/11 patient was initially on nicardipine drip due to BP >200/100 now off of the drip, with good blood pressures continue metoprolol Atrial Fibrillation currently in NSR continue b-carmine holding Coumadin for now repeat Head CT is negative if okay with neurology, will restart Coumadin today Hypothyroidism switch back to PO Synthroid DVT ppx INR = 2.0; restart Coumadin on 09/11 FULL CODE
[2016-09-12] MEDS ORDERED: LSN5 PO (15:42)
[2016-09-12] MEDS ORDERED: LPT40 PO (15:42)
--- NOTE | 2016-09-12 15:47 | Discharge Instructions ---
Discharge Instructions Date of Service Sep 12, 2016. Admission Reason for Admission: Acute Cva Discharge Discharge Diagnosis / Problem: Likely hypertensive encephalopathy Discharge Goals Goal(s): Decrease discomfort, Improve function, Diagnostic testing, Therapeutic intervention Activity Recommendations Activity Limitations: resume your previous activity . Instructions / Follow-Up Instructions / Follow-Up Please follow-up with Dr. Rivera on September 14 @ 12:45PM * Please take 2mg of Coumadin until you can follow-up with the Coumadin clinic ( goal INR of 2-3) * You are started on high intensity statin medication (Lipitor 80mg) * You will be started on low dose lisinopril for your blood pressure * Follow-up with your primary care for blood pressure check Current Hospital Diet Patient's current hospital diet: AHA Diet (Heart Healthy) Discharge Diet Recommended Diet: AHA Diet (Heart Healthy), Low Sodium Diet (2gm Na) Pending Studies Studies pending at discharge: no Laboratory Results Hemoglobin A1c Test 09/10/16 16:08 Range/Units Estimated Average Glucose 108 mg/dl Hemoglobin A1c 5.4 4.5-5.6 % Lipid Panel Test 09/11/16 04:51 Range/Units Triglycerides Level 86 0-150 mg/dl Cholesterol Level 188 0-200 mg/dl HDL Cholesterol 60 mg/dl Cholesterol/HDL Ratio 3.1 LDL Cholesterol, Calculated 111 mg/dl Medical Emergencies . Who to Call and When: Medical Emergencies: If at any time you feel your situation is an emergency, please call 911 immediately. . Non-Emergent Contact Non-Emergency issues call your: Primary Care Provider . . "Provider Documentation" section prepared by Sedrick Emery. VTE Core Measure Inpt VTE Proph given/why not?: Warfarin (Coumadin)
--- NOTE | 2016-09-12 15:49 | Discharge Summary ---
Discharge Summary Date of Service Sep 12, 2016. Discharge Summary Admission Date: Sep 10, 2016 at 19:00 Discharge Date: Sep 12, 2016 Discharge Disposition: Home with services Principal Diagnosis: Expressive Aphasia, likely Hypertensive Encephalopathy Hypertensive Urgency Paroxysmal Atrial Fibrillation Medication Reconciliation New Medications: Atorvastatin (Atorvastatin Calcium) 40 Mg Tab 80 MG PO QAM for 30 Days, #60 TAB Lisinopril (Lisinopril) 5 Mg Tab 5 MG PO DAILY for 30 Days, #30 TAB Continued Medications: Calcium/Vitamin D (Os-Jensen 500 Plus D) Tab 1 TAB PO BID, 0 Refills Desonide 0.05% (Desowen 0.05%) 60 Gm Cr 1 APPLN TOP DAILY PRN for RASH for 14 Days, #60 GM APPLY TO FOREHEAD AND BODY DAILY, NEEDED, FOR RASH. Diltiazem Hcl Ext Rel (Tiazac) 120 Mg Capcr 120 MG PO DAILY, CAP Docusate Sodium (Colace) 100 Mg Cap 100 MG PO PM, CAP Hydroxyzine Hcl (Atarax) 10 Mg Tab 5-10 MG PO QID PRN for ITCHING, TAB MAY TAKE 2-3 TABS AT HS Levothyroxine Sodium (Levothyroxine Sodium) 88 Mcg Tab 88 MCG PO DAILY, TAB Magnesium Oxide (Mag-Ox) 400 Mg Tab 400 MG PO DAILY, TAB Metoprolol Succinate (Toprol Xl) 25 Mg Tabcr 25 MG PO BID, #30 TAB Psyllium (Metamucil Powder) Powd 1 TBS PO QPM Triamcinolone Acet (Aristocort 0.1%) 90 Appln/30 Gm Cr 1 APPLN TD BID APPLY TO AFFECTED AREA 2 TIMES DAILY. Warfarin Sodium (Coumadin) 2 Mg Tab 2-4 MG PO DAILY/UD, TAB Admission Information HPI (per Admitting provider): Patient seen and examined. 81 year old female with PMHx of Afib on Coumadin, HTN , and hypothyroidism presents to the ED with stroke like symptoms prior to arrival. states that they were shopping in [place] when the patient stated that she was dizzy and had blurry vision. She then apparently developed a right facial droop and had some difficulty walking. Her speech was very slurred and she seemed confused. She could not find the correct words to say, and sometimes wouldn't speak at all. Her took her home and the neighbor saw that the patient had these symptoms and called EMS. In the ED stroke alert was called. CT head was negative. It was decided that patient could not have TPA or clot retrieval d/t INR of 2.3 and unknown onset of symptoms. BP is elevated >190 systolically. A nicardipine drip was started. When seen and examined by this provider, patient continued to have word finding issues, and confusion. She denies fevers, chills, URI symptoms, chest pain, SOB, nausea, vomiting, diarrhea, dysuria, calf pain and edema. Patient will be admitted for further workup and treatment. Physical Exam (per Admitting): General Appearance: + pertinent finding (WD/WN 81 year old female lying in bed in NAD with and neighbor at bedside ) Head: normocephalic, atraumatic Eyes: PERRL, EOMI, sclerae normal ENT: hearing grossly normal, pharynx normal Neck: supple, no JVD Respiratory/Chest: chest non-tender, lungs clear, normal breath sounds, no respiratory distress, no accessory muscle use Cardiovascular: regular rate, rhythm, no edema, no gallop, no JVD, no murmur , normal peripheral pulses Abdomen/GI: normal bowel sounds, non tender, soft Back: normal inspection, no muscle spasm Extremities/Musculoskelatal: no calf tenderness, normal capillary refill, no pedal edema Neurologic/Psych: normal reflexes, + pertinent finding (Alert, confused, sometimes oriented but othertimes not, word finding issues, difficulty concentrating/following commands, strength equal in all extremities, vision teacher intact , ) Skin: normal color, warm/dry, no rash Lymphatic: no adenopathy Hospital Course This is an 81 year old female with PMH of paroxysmal atrial fibrillation on Coumadin, HTN, hypothyroidism, anxiety presents with aphasia Aphasia r/o CVA 09/12 appreciate neurology input likely hypertensive encephalopathy Head CT negative x 2, MRI, MRA negative, EEG with no acute findings will d/c home today with home PT 09/11 symptoms have resolved patient had initial head CT on admission = no acute findings Brain MRI, MRA of head/neck = no acute findings repeat Head CT on 09/11 - no hemorrhage, infarct, mass noted currently holding aspirin and Coumadin - will await neuro input prior to restarting continue high-intensity statin as tolerated PT/OT/speech pending discharge planning - may need rehab vs. home PT Hypertensive Urgency 09/12 continue diltiazem added lisinopril outpatient PCP follow-up regarding blood pressure 09/11 patient was initially on nicardipine drip due to BP >200/100 now off of the drip, with good blood pressures continue metoprolol Atrial Fibrillation currently in NSR continue b-carmine holding Coumadin for now repeat Head CT is negative if okay with neurology, will restart Coumadin today Hypothyroidism switch back to PO Synthroid DVT ppx INR = 2.0; restart Coumadin on 09/11 FULL CODE Total time spent on discharge = 45 minutes This includes examination of the patient, discharge planning, medication reconciliation, and communication with other providers. Discharge Instructions Please follow-up with Dr. Rivera on September 14 @ 12:45PM * Please take 2mg of Coumadin until you can follow-up with the Coumadin clinic ( goal INR of 2-3) * You are started on high intensity statin medication (Lipitor 80mg) * You will be started on low dose lisinopril for your blood pressure * Follow-up with your primary care for blood pressure check
[2016-09-12] MEDS ORDERED: WARFARIN SOD 4 MG TAB PO SCH (16:00)
[2016-09-12] MEDS ORDERED: NURSING VERBAL MED ORDER ONE (16:00)
[2016-09-12] MEDS ORDERED: LISINOPRIL 5 MG TAB PO ONE (16:00)
[2016-09-12] MEDS: MAGNESIUM OXIDE 400 MG TAB PO SCH (16:10)
[2016-11-15] MEDS ORDERED: DOCU100T7 PO (10:38)
[2016-11-15] MEDS ORDERED: ATOR-24 PO (10:38)
[2016-11-15] MEDS ORDERED: CALCTAB5 PO (10:38)
[2016-11-15] MEDS ORDERED: LEVO88TA3 PO (10:38)
[2016-11-15] MEDS ORDERED: WARF4TAB PO (10:38)
[2016-11-15] MEDS ORDERED: METO25TA56 PO (10:38)
[2016-11-15] MEDS ORDERED: LOSA50TA6 PO (10:38)
== END 2016-09-12 16:52 | disposition home health service (06) | DRG 78 ==
LOC: ENRESERVTM → ENRESERVDT → EDBD 16:22 → C.EDC 16:23 → C.MSICU 19:00 → C.MED 09-11 12:19
PROVIDERS: ADMIT Hospitalist; ATTEND Family Medicine
DX: I67.4 Hypertensive encephalopathy (principal); R47.01 Aphasia; E87.1 Hypo-osmolality and hyponatremia; I48.0 Paroxysmal atrial fibrillation; I16.0 Hypertensive urgency; I48.2 Chronic atrial fibrillation; E03.9 Hypothyroidism, unspecified; Z82.49 Family history of ischemic heart disease and other diseases of the circulatory system; Z80.9 Family history of malignant neoplasm, unspecified; Z79.01 Long term (current) use of anticoagulants; F41.1 Generalized anxiety disorder; M81.0 Age-related osteoporosis without current pathological fracture

== ENCOUNTER → 2016-11-21 | Day surgery (SDC) | payer OTHER ==
[2016-11-15 10:39] VITALS: Ht 176.5 cm; Wt 81.8 kg
[~2016-11-21] VITALS: Ht 176.5 cm; Wt 81.8 kg
[~2016-11-21] MED LIST changes: +500ML BSS 0.3ML EPI 1:1000PF IRRIG ONE; +ACETAMINOPHEN 325 MG TAB PO PRN; -AMLO5TAB2 PO; +AMVISC PLUS 0.8ML SYRINGE INT OCU ONE; +ATOR-24 PO; +ATROPINE SULFATE 0.1 MG/ML 5ML SYR IV PRN; +AcetaZOLAMIDE 250 MG TAB PO SCH; +BETAXOLOL HCL 0.25% OP SUSP PER DROP CHARGE OPR SCH; +BRIMONIDINE TART 0.2% OP SOLN PER DROP CHARGE ONE; +BSS FLUSH ONE; -CALC500C70 PO; +CALCTAB5 PO; +DILT120C68 PO; +DOCU100T7 PO; +DSWCR TOP; +ENDOCOAT 0.85ML SYRINGE INT OCU ONE; +EpHEDrine SULFATE INJ 50 MG/ML AMP IV PRN; +EpINEphrine INJ 1MG/ML AMP 1 MG/ML AMP ONE; +HYDR-389 PO; -HYDR12.55 PO; +LACTATED RINGER'S 1000ML 500 ML IV SCH; -LEVO150T PO; +LEVO88TA3 PO; +LIDOCAINE 4% OP SOLN DROP CHARGE ONE; +LIDOCAINE 4% OP SOLN DROP CHARGE OPR SCH; +LIDOCAINE HCL 1% MPF 2 ML VIAL ONE; +LOSA50TA6 PO; +MAGN400T6 PO; -METO25TA3 PO; +METO25TA56 PO; +MIDAZOLAM HCL 1 MG/ML 2ML VIAL ONE; +MIX: 4ML BSS 1ML EPI 1:1000 PF INSTIL ONE; +MOXIFLOXACIN OPH SOLN PER DROP CHARGE ONE; +OCUCOAT 1 ML SOLN IO ONE; +POVIDONE-IODINE OP SOLN 30 ML BTL ONE; +PROPARACAINE 0.5% OP SOLN PER DROP CHARGE OPR SCH; -SYN125 PO; +TOBRAMYCIN/DEXAMETHASONE OPH OINT PER APPLN CHARGE ONE; -WARF2TAB PO; +WARF4TAB PO
--- NOTE | 2016-11-21 09:16 | History & Physical Bridge - SC ---
H&P Re-Evaluation Bridge Note: I have examined the patient, reviewed the History & Physical and in the interval since the performance of the History & Physical I have noted the following changes of clinical significance: No changes noted
[2016-11-21] MEDS: PHENYLEPHRINE HCL 2.5% OP SOLN PER DROP CHARGE OPR SCH ×2 (10:15→10:20)
[2016-11-21] MEDS: TROPICAMIDE 1% OP SOLN PER DROP CHARGE OPR SCH ×2 (10:16→10:21)
[2016-11-21] MEDS: CYCLOPENTOLATE HCL 1% OP SOLN PER DROP CHARGE OPR SCH ×2 (10:17→10:21)
[2016-11-21] MEDS: MOXIFLOXACIN OPH SOLN PER DROP CHARGE OPR SCH ×2 (10:18→10:27)
--- NOTE | 2016-11-21 11:32 | Discharge Instructions-SurgCtr ---
Discharge Instructions Date of Service Nov 21, 2016. Visit Reason for Visit: Cataract Right Eye Discharge Discharge Diagnosis / Problem: lens implant right eye Discharge Goals Goal(s): Improve function Activity Recommendations Activity Limitations: resume your previous activity Lifting Limitations: no more than 10 pounds Exercise/Sports Limitations: gradually increase as tolerated May Resume Sexual Activity: when tolerated Shower/Bathe: tomorrow Driving or Machine Use: resume 1 day after discharge Anesthesia . Post Anesthesia Instructions: If you have had General Anesthesia or IV Sedation: * Do not drive today. * Resume driving when surgeon permits. * Do not make important decisions or sign legal documents today. * Call surgeon for: 1. Temperature elevations greater than 101 degrees F. 2. Uncontrollable pain. 3. Excessive bleeding. 4. Persistent nausea and vomiting. 5. Medication intolerance (nausea, vomiting or rash). * For nausea and vomiting use only clear liquids such as: tea, soda, bouillon until nausea subsides, then gradually increase diet as tolerated. * If you have any concerns or questions, call your surgeon's office. If physician is unavailable and it is an emergency, call 911 or go to the nearest emergency room. . Instructions / Follow-Up Instructions / Follow-Up ACTIVITY RECOMMENDATIONS: * Light activities. * Mild irritation and blurred vision are common for the first few days. * You may walk outside, read, watch television. * Redness around the white part of the eye is common. MEDICATIONS: Resume previous medications unless instructed otherwise by your surgeon. * Take white Diamox (Acetazolamide) tablet at 2 pm today. Start all eye drops at 2 pm today: * Eye drops (today and tomorrow): Prednisone - one drop in operative eye every 3 hours while awake Ofloxacin - one drop in operative eye every 3 hours while awake SPECIAL CARE INSTRUCTIONS: * Tape plastic shield over eye to sleep at night. Call your doctor at with any concerns or problems. FOLLOW UP VISIT: Follow-up with Dr Patiño at [place] office as scheduled. Diet Recommendations Home Diet: no limitations Procedures Procedures Performed: cataract extraction with lens implant Pending Studies Studies pending at discharge: no Medical Emergencies . Who to Call and When: Medical Emergencies: If at any time you feel your situation is an emergency, please call 911 immediately. . Non-Emergent Contact Non-Emergency issues call your: Rework Machine Operator Call Non-Emergent contact if: your pain is not controlled [phone] . . "Provider Documentation" section prepared by Dontae Patiño. .
--- NOTE | 2016-11-21 11:34 | [facility] Operative Report ---
Operative Report Date of Service Nov 21, 2016. Operative Report 1. PREOPERATIVE DIAGNOSIS: Senile nuclear cataract, right eye. 2. POSTOPERATIVE DIAGNOSIS: Senile nuclear cataract, right eye. 3. PROCEDURE: Phacoemulsification of right cataract with posterior chamber lens implant, type [employer], model MX60, power +21.0 diopters. ANESTHESIA: Local standby. SURGEON: Dr. Patiño. COMPLICATIONS: None. OPERATING TIME: 10 minutes. 4. OPERATION AND FINDINGS: DESCRIPTION OF PROCEDURE: The right pupil was dilated. The anesthetic was administered using a topical technique. The right eye was prepped and draped. A speculum was placed. A clear corneal incision was formed. The chamber was filled with Amvisc Plus and Endocoat. Epinephrine solution was used. A paracentesis was placed. A capsulorrhexis was performed. The nucleus was hydrodissected. A dense lens was removed with phacoemulsification. Time was 10 seconds. The aspiration unit was used to remove the cortex. The capsule was filled with Amvisc Plus. The lens implant was folded and placed into the capsule. The incision was hydrated. The Amvisc was aspirated. The wound was secure. The chamber was deep. The pupil was round. Brimonidine, TobraDex ointment and Vigamox solution were placed. The speculum was removed. The patient was returned to the Recovery Room in stable condition. I attest to the content of the Intraoperative Record and any orders documented therein. Any exceptions are noted below. The scribe's documentation has been prepared in my presence, under my direction and personally reviewed by me in its entirety. I confirm that the note above accurately reflects all work, treatment, procedures, and medical decision making performed by me. I personally scribed for Dontae Patiño M.D. ([email or web address]) on 11/21/16 at 11:34. Electronically submitted by Teresa Echols ([facility]).
[2016-11-21 11:37] VITALS: TEMP 36.5
--- NOTE | 2016-11-21 12:09 | Anesthesia Progress Nt - [facility] ---
Anesthesia Post Op Note Date & Time Nov 21, 2016 at 12:09 Vital Signs Pain Intensity: 22.0 Vital Signs Past 12 Hours Date Time Temp Pulse Resp B/P (MAP) Pulse Ox O2 Delivery O2 Flow Rate FiO2 11/21/16 11:37 36.5 64 18 166/85 (112) 97 Room Air 11/21/16 10:00 36.4 58 20 173/85 (114) 97 Room Air Notes Mental Status: alert / awake / arousable, participated in evaluation Pt Amnestic to Procedure: Yes Nausea / Vomiting: adequately controlled Pain: adequately controlled Airway Patency, RR, SpO2: stable & adequate BP & HR: stable & adequate Hydration State: stable & adequate Anesthetic Complications: no major complications apparent
[2016-11-21 12:11] VITALS: BP 162/77; PULSE 53; O2SAT 97
== END | disposition home or self-care (01) ==
LOC: X.SURG 09:00
PROVIDERS: ATTEND Specialist
DX: H25.11 Age-related nuclear cataract, right eye (principal); I10 Essential (primary) hypertension; I48.0 Paroxysmal atrial fibrillation; Z85.828 Personal history of other malignant neoplasm of skin

== ENCOUNTER → 2016-12-05 | Day surgery (SDC) | payer OTHER ==
[2016-12-03 07:46] VITALS: Ht 176.5 cm; Wt 68.2 kg
[~2016-12-05] VITALS: Ht 176.5 cm; Wt 68.2 kg
[~2016-12-05] MED LIST changes: +BETAXOLOL HCL 0.25% OP SUSP PER DROP CHARGE OPL SCH; -BETAXOLOL HCL 0.25% OP SUSP PER DROP CHARGE OPR SCH; +LIDOCAINE 4% OP SOLN DROP CHARGE OPL SCH; -LIDOCAINE 4% OP SOLN DROP CHARGE OPR SCH; +PROPARACAINE 0.5% OP SOLN PER DROP CHARGE OPL SCH; -PROPARACAINE 0.5% OP SOLN PER DROP CHARGE OPR SCH
[2016-12-05] MEDS: PHENYLEPHRINE HCL 2.5% OP SOLN PER DROP CHARGE OPL SCH ×2 (09:00→09:05)
[2016-12-05] MEDS: TROPICAMIDE 1% OP SOLN PER DROP CHARGE OPL SCH ×2 (09:01→09:06)
[2016-12-05] MEDS: CYCLOPENTOLATE HCL 1% OP SOLN PER DROP CHARGE OPL SCH ×2 (09:02→09:08)
[2016-12-05] MEDS: MOXIFLOXACIN OPH SOLN PER DROP CHARGE OPL SCH ×2 (09:03→09:13)
--- NOTE | 2016-12-05 09:54 | Discharge Instructions-SurgCtr ---
Discharge Instructions Date of Service Dec 05, 2016. Visit Reason for Visit: Cataract Left Eye Discharge Discharge Diagnosis / Problem: lens implant left eye Discharge Goals Goal(s): Improve function Activity Recommendations Activity Limitations: resume your previous activity Lifting Limitations: no more than 10 pounds Exercise/Sports Limitations: gradually increase as tolerated May Resume Sexual Activity: when tolerated Shower/Bathe: tomorrow Driving or Machine Use: resume 1 day after discharge Anesthesia . Post Anesthesia Instructions: If you have had General Anesthesia or IV Sedation: * Do not drive today. * Resume driving when surgeon permits. * Do not make important decisions or sign legal documents today. * Call surgeon for: 1. Temperature elevations greater than 101 degrees F. 2. Uncontrollable pain. 3. Excessive bleeding. 4. Persistent nausea and vomiting. 5. Medication intolerance (nausea, vomiting or rash). * For nausea and vomiting use only clear liquids such as: tea, soda, bouillon until nausea subsides, then gradually increase diet as tolerated. * If you have any concerns or questions, call your surgeon's office. If physician is unavailable and it is an emergency, call 911 or go to the nearest emergency room. . Instructions / Follow-Up Instructions / Follow-Up ACTIVITY RECOMMENDATIONS: * Light activities. * Mild irritation and blurred vision are common for the first few days. * You may walk outside, read, watch television. * Redness around the white part of the eye is common. MEDICATIONS: Resume previous medications unless instructed otherwise by your surgeon. * Take white Diamox (Acetazolamide) tablet at 1 pm today. Start all eye drops at 1 pm today: * Eye drops (today and tomorrow): Prednisone - one drop in operative eye every 3 hours while awake Ofloxacin - one drop in operative eye every 3 hours while awake SPECIAL CARE INSTRUCTIONS: * Tape plastic shield over eye to sleep at night. Call your doctor at with any concerns or problems. FOLLOW UP VISIT: Follow-up with Dr Patiño at [place] office as scheduled. Diet Recommendations Home Diet: no limitations Procedures Procedures Performed: cataract extraction with lens implant Pending Studies Studies pending at discharge: no Medical Emergencies . Who to Call and When: Medical Emergencies: If at any time you feel your situation is an emergency, please call 911 immediately. . Non-Emergent Contact Non-Emergency issues call your: Cosmetic Chemist Call Non-Emergent contact if: your pain is not controlled [phone] . . "Provider Documentation" section prepared by Dontae Patiño. .
--- NOTE | 2016-12-05 09:56 | [facility] Operative Report ---
Operative Report Date of Service Dec 05, 2016. Operative Report 1. PREOPERATIVE DIAGNOSIS: Senile nuclear cataract, left eye. 2. POSTOPERATIVE DIAGNOSIS: Senile nuclear cataract, left eye. 3. PROCEDURE: Phacoemulsification of left cataract with posterior chamber lens implant, type [employer], model MX60, power +21.5 diopters. ANESTHESIA: Local standby. SURGEON: Dr. Patiño. COMPLICATIONS: None. OPERATING TIME: 10 minutes. 4. OPERATION AND FINDINGS: DESCRIPTION OF PROCEDURE: The left pupil was dilated. The anesthetic was administered using a topical technique. The left eye was prepped and draped. A speculum was placed. A clear corneal incision was formed. The chamber was filled with Amvisc Plus and Endocoat. Epinephrine solution was used. A paracentesis was placed. A capsulorrhexis was performed. The nucleus was hydrodissected. The lens was removed with phacoemulsification. Time was 6.25 seconds. The aspiration unit was used to remove the cortex. The capsule was filled with Amvisc Plus. The lens implant was folded and placed into the capsule. The incision was hydrated. The Amvisc was aspirated. The wound was secure. The chamber was deep. The pupil was round. Brimonidine, TobraDex ointment and Vigamox solution were placed. The speculum was removed. The patient was returned to the Recovery Room in stable condition. I attest to the content of the Intraoperative Record and any orders documented therein. Any exceptions are noted below. The scribe's documentation has been prepared in my presence, under my direction and personally reviewed by me in its entirety. I confirm that the note above accurately reflects all work, treatment, procedures, and medical decision making performed by me. I personally scribed for Dontae Patiño M.D. ([email or web address]) on 12/05/16 at 09:56. Electronically submitted by Teresa Echols ([facility]).
[2016-12-05 10:06] VITALS: TEMP 36.5
--- NOTE | 2016-12-05 10:18 | Anesthesia Progress Nt - [facility] ---
Anesthesia Post Op Note Date & Time Dec 05, 2016 at 10:17 Vital Signs Pain Intensity: 0 Vital Signs Past 12 Hours Date Time Temp Pulse Resp B/P (MAP) Pulse Ox O2 Delivery O2 Flow Rate FiO2 12/05/16 10:06 36.5 52 16 163/79 (107) 98 Room Air 12/05/16 08:56 55 167/88 (114) 12/05/16 08:45 36.4 56 20 186/102 (130) 97 Room Air Notes Mental Status: alert / awake / arousable, participated in evaluation Pt Amnestic to Procedure: Yes Nausea / Vomiting: adequately controlled Pain: adequately controlled Airway Patency, RR, SpO2: stable & adequate BP & HR: stable & adequate Hydration State: stable & adequate Anesthetic Complications: no major complications apparent
[2016-12-05 10:22] VITALS: BP 165/86; PULSE 55; O2SAT 98
== END | disposition home or self-care (01) ==
LOC: X.SURG 08:18
PROVIDERS: ATTEND Specialist
DX: H25.12 Age-related nuclear cataract, left eye (principal); I10 Essential (primary) hypertension

== ENCOUNTER → 2017-01-30 | Outpatient (CLI) | payer OTHER ==
[~2017-01-30] MED LIST changes: -500ML BSS 0.3ML EPI 1:1000PF IRRIG ONE; -ACETAMINOPHEN 325 MG TAB PO PRN; -AMVISC PLUS 0.8ML SYRINGE INT OCU ONE; -ATROPINE SULFATE 0.1 MG/ML 5ML SYR IV PRN; -AcetaZOLAMIDE 250 MG TAB PO SCH; -BETAXOLOL HCL 0.25% OP SUSP PER DROP CHARGE OPL SCH; -BRIMONIDINE TART 0.2% OP SOLN PER DROP CHARGE ONE; -BSS FLUSH ONE; -ENDOCOAT 0.85ML SYRINGE INT OCU ONE; -EpHEDrine SULFATE INJ 50 MG/ML AMP IV PRN; -EpINEphrine INJ 1MG/ML AMP 1 MG/ML AMP ONE; -LACTATED RINGER'S 1000ML 500 ML IV SCH; -LIDOCAINE 4% OP SOLN DROP CHARGE ONE; -LIDOCAINE 4% OP SOLN DROP CHARGE OPL SCH; -LIDOCAINE HCL 1% MPF 2 ML VIAL ONE; -MIDAZOLAM HCL 1 MG/ML 2ML VIAL ONE; -MIX: 4ML BSS 1ML EPI 1:1000 PF INSTIL ONE; -MOXIFLOXACIN OPH SOLN PER DROP CHARGE ONE; -OCUCOAT 1 ML SOLN IO ONE; -POVIDONE-IODINE OP SOLN 30 ML BTL ONE; -PROPARACAINE 0.5% OP SOLN PER DROP CHARGE OPL SCH; -TOBRAMYCIN/DEXAMETHASONE OPH OINT PER APPLN CHARGE ONE
--- NOTE | 2017-01-30 14:58 | DIAGNOSTIC IMAGING REPORT ---
ULTRASOUND LEFT VENOUS DOPP LOWER EXT UNILAT CLINICAL HISTORY: Left leg pain and edema. COMPARISON STUDY: No previous studies for comparison. FINDINGS: Real-time and color flow Doppler imaging were performed. Flow was seen within the femoral, popliteal and calf veins with no intraluminal thrombus demonstrated. The saphenous vein is patent. IMPRESSION: No evidence of left lower extremity DVT. Electronically signed by: Keven Pineda M.D. 01/30/2017 2:56 PM Dictated Date/Time: 01/30/2017 2:56 PM
== END | disposition home or self-care (01) ==
LOC: C.ULTRBC 13:52
PROVIDERS: ATTEND Podiatrist
DX: R60.0 Localized edema (principal); M79.662 Pain in left lower leg

== ENCOUNTER 2019-05-11 20:51 | Inpatient (IN) ==
[2019-05-11] MEDS ORDERED: OPTIRAY 320 125ml IV PRN (20:56)
[2019-05-11] MEDS ORDERED: SODIUM CHLORIDE 0.9% 1000ML 1,000 ML IV SCH (21:00)
--- NOTE | 2019-05-11 21:08 | CT Scan Report ---
CT head/brain wo con CLINICAL HISTORY: Strokelike symptoms COMPARISON STUDY: July 11, 2018 TECHNIQUE: Axial CT of the brain is performed from the vertex to the skull base. IV contrast was not administered for this examination. A dose lowering technique was utilized adhering to the principles of ALARA. CT DOSE: FINDINGS: No intra or extra-axial mass lesions are visualized. There is no CT evidence of acute cortical infarc tion. There is no evidence of midline shift. There is no acute hemorrhage. No calvarial fractures ar e visualized. There are patchy white matter hypodensities likely on a small vessel basis. 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 There is mild ventricular dilatation, finding which is felt to be secondary to volume loss. There is no is of acute sinusitis. There is an old left zygomatic arch fracture. There is an old left lateral orbital wall fracture. There are old nasal bone fractures. IMPRESSION: No acute intracranial findings Electronically signed by: Keven Pineda M.D. 05/11/2019 9:06 PM
--- NOTE | 2019-05-11 21:14 | CT Scan Report ---
CT angio head w con CLINICAL HISTORY: Acute stroke like symptoms TECHNIQUE: CT angiography of the head was performed in a dynamic helical fashion during intravenous a dministration of 119 cc of Optiray 320. MIP imaging was performed. A dose lowering technique was util ized adhering to the principles of ALARA. CT DOSE: 1020.81 mGy.cm COMPARISON STUDY: No previous studies for comparison. FINDINGS: There are no lesion suspicious for aneurysm. There are no major intracranial branch occlusi ons. The dural venous sinuses appear patent. There is no major intracranial stenosis. IMPRESSION: No significant abnormalities identified. Electronically signed by: Keven Pineda M.D. 05/11/2019 9:12 PM
--- NOTE | 2019-05-11 21:19 | CT Scan Report ---
CT angio neck with con CLINICAL HISTORY: Acute stroke COMPARISON STUDY: No previous studies for comparison. TECHNIQUE: CT angiography was performed from the aortic arch to the skull base. MIP imaging was perfo rmed. The patient was scanned in a dynamic helical fashion during intravenous administration of 119 c c of Optiray 320. A dose lowering technique was utilized adhering to the principles of ALARA. CT DOSE: Technique: CT angiogram of the carotid and vertebral arteries was obtained using intravenous contrast and 3-D reconstruction. NASCET criteria was utilized. Findings: The right carotid revealed no evidence of aneurysm and no evidence of dissection. There is no evidenc e of hemodynamic significant stenosis. Atheromatous changes are present the level of the right caroti d bulb The left carotid revealed no evidence of hemodynamic significant stenosis. There is no evidence of an eurysm. There is no evidence of dissection. Atheromatous changes are present the level left carotid b ulb There is no evidence of hemodynamically significant vertebral stenosis. There is no evidence of verte bral dissection. IMPRESSION: No evidence of hemodynamically significant carotid or vertebral artery stenosis. No evidence of disse ction. Electronically signed by: Keven Pineda M.D. 05/11/2019 9:18 PM
[2019-05-11 21:42] LABS: Alanine Aminotransferase 27 U/L (12-78); Albumin Level 3.7 gm/dl (3.4-5.0); Aspartate Aminotransferase 27 U/L (15-37); BUN Creatinine Ratio 12.5 (10-20); Blood Urea Nitrogen 11 mg/dl (7-18); Calcium 9.1 mg/dl (8.5-10.1); Carbon Dioxide 28 mmol/L (21-32); Chloride 93 mmol/L (98-107); Est GFR (Non-African American) 63.8; Glucose 110 mg/dl (70-99); Magnesium 1.9 mg/dl (1.8-2.4); Potassium 3.9 mmol/L (3.5-5.1); Sodium 128 mmol/L (136-145)
[2019-05-11 21:44] LABS: Appearance Urine Clear (Clear); Bilirubin Urine Negative (Negative); Blood Urine Negative (Negative); Color Urine Yellow; Glucose Urine UA Negative (Negative); Ketones Urine Negative (Negative); Leukocyte Esterase Urine Negative (Negative); Nitrite Urine Negative (Negative); Protein Urine Negative (Negative); Specific Gravity Urine 1.019 (1.000-1.030); Urobilinogen Urine Negative (Negative); pH Urine 8.5 (4.5-7.5)
[2019-05-11 21:45] LABS: INR 1.1 (0.9-1.1); Partial Thromboplastin Ratio 0.9; Partial Thromboplastin Time 24.1 Seconds (21.0-31.0)
[2019-05-11 21:47] LABS: Albumin Globulin Ratio 1.2 (0.9-2); Alkaline Phosphatase 87 U/L (45-117); Bilirubin,Total 0.7 mg/dl (0.2-1); Globulin 3.2 gm/dl (2.5-4.0); Total Protein 6.9 gm/dl (6.4-8.2); Troponin I < 0.015 ng/ml (0-0.045)
[2019-05-11] MEDS ORDERED: LOSARTAN POTASSIUM 25 MG TAB PO STA (22:08)
--- NOTE | 2019-05-11 22:20 | XRay Report ---
XR chest 1V portable CLINICAL HISTORY: Acute stroke COMPARISON STUDY: July 11, 2018 FINDINGS: The heart is enlarged. There is a left subclavian dual-chamber central venous pacemaker. Th ere is pulmonary emphysema. There is been resolution of the previously described congestive failure. There is no lobar consolidation. There is mild right lower lobe peribronchial thickening.[ IMPRESSION: 1. Resolution of the previously described congestive failure 2. Mild cardiomegaly 3. Emphysema 4. Mild right lower lobe peribronchial thickening Electronically signed by: Keven Pineda M.D. 05/11/2019 10:19 PM
--- NOTE | 2019-05-11 22:24 | Emergency Department Note ---
Entered by Stormy Ellis acting as a scribe for Marcos Graham DO History of Present Illness General Chief complaint: Stroke Alert Stated complaint: Stroke symptoms Source: other (nurse) Mode of arrival: EMS Limitations: other (poor historian, old age) History of Present Illness Provider complaint: Stroke-like symptoms Onset (ago): hour(s) (around 1700 today) Location: head Pain Consistency: + other (worsening) Quality: + other (stroke-like symptoms) Associated symptoms: + other (Additional symptoms: aphasia) Treatments prior to arrival: none The patient is an 83 year old female with a history of an intracranial hemorrhage in July, atrial fibrillation, hypertension, and hypothyroidism who presents to the Emergency Room with complaints of worsening stroke-like symptoms starting around 1700 today. Per nurse, the patient as eating dinner when her noticed that she was not acting herself and having trouble getting her words out. She notes that the is also a poor historian. EMS reportedly found the patient sitting in a chair in the bathroom when they arrived on scene. HPI limited secondary to poor historian and old age. Home Medications Home Medications Medication Instructions Recorded Confirmed Type acetaminophen [Tylenol] 650 mg PO QID PRN 05/11/19 05/11/19 History aspirin [Aspir-81] 81 mg PO DAILY 05/11/19 05/11/19 History calcium carbonate-vitamin D3 1 tab PO BID 05/11/19 05/11/19 History [Calcium 500 + D] hydroxyzine HCl 10 mg PO TID PRN 05/11/19 05/11/19 History levothyroxine 100 mcg PO DAILY 05/11/19 05/11/19 History losartan [Cozaar] 50 mg PO HS 05/11/19 05/11/19 History magnesium oxide [MagOx] 400 mg PO DAILY 05/11/19 05/11/19 History metoprolol succinate [Toprol XL] 25 mg PO DAILY 05/11/19 05/11/19 History mirtazapine [Remeron] 15 mg PO HS 05/11/19 05/11/19 History sennosides-docusate sodium [Senna 1 tab PO DAILY 05/11/19 05/11/19 History Plus] triamcinolone acetonide 1 applic TOPICAL UD 05/11/19 05/11/19 History Allergies Allergy/AdvReac Type Severity Reaction Status Date / Time latex Allergy Unknown skin Verified 07/11/18 14:58 irritation lisinopril Allergy Unknown COUGH Verified 07/11/18 14:58 Past Med/Surg History Social History Preferred Language: Grenadian marital status: Current Living Situation: Spouse current occupational status: retired Feels Safe at Home: Yes Smoking Status: Never smoker Hx Alcohol Use: No Hx Substance Use: No Review of Systems Other (Limited secondary to poor historian and old age) Physical Exam Vital Signs Vital Signs - 24 hr 05/11/19 21:11 05/11/19 21:15 05/11/19 21:21 Temperature 36.6 C Temperature Source Oral Pulse Rate 79 75 68 Pulse Rate from SpO2 Sensor 58 L 66 Respiratory Rate 20 18 18 Respiratory Effort / Characteristics Non-Labored Spontaneous Respiratory Depth Normal Respiratory Pattern Regular Blood Pressure 203/117 H 185/112 H 206/127 H Blood Pressure Mean 145 142 157 Blood Pressure Position Lying Pulse Oximetry 95 95 97 Oxygen Delivery Method Room Air Sepsis Recent Fever Within 48 Hours No Sepsis Action Taken by Nursing No Action Required 05/11/19 21:27 05/11/19 21:41 Temperature Temperature Source Pulse Rate 63 64 Pulse Rate from SpO2 Sensor 66 60 Respiratory Rate 20 18 Respiratory Effort / Characteristics Respiratory Depth Respiratory Pattern Blood Pressure 198/96 H 197/96 H Blood Pressure Mean 116 106 Blood Pressure Position Pulse Oximetry 95 96 Oxygen Delivery Method Sepsis Recent Fever Within 48 Hours Sepsis Action Taken by Nursing CONSTITUTIONAL/VITAL SIGNS: Reviewed / noted above. GENERAL: Non-toxic in appearance. INTEGUMENTARY: Warm, dry, and [place]. HEAD: Normocephalic. EYES: without scleral icterus or trauma. ENT/OROPHARYNX: clear and moist. LYMPHADENOPATHY/NECK: Is supple without lymphadenopathy or meningismus. RESPIRATORY: Lungs clear and equal. CARDIOVASCULAR: Regular rate and rhythm. GI/ABDOMEN: Soft and nontender. No organomegaly or pulsatile mass. No rebound or guarding. Normal bowel sounds. EXTREMITIES: Warm and well perfused. BACK: No CVA tenderness. NEUROLOGICAL: Mild left leg weakness compared to the right. Mild slurring of speech (may be chronic). Seems hard of heraing. PSYCHIATRIC: normal affect. MUSCULOSKELETAL: Normally developed with good muscle tone. Course Course 2103: The patient was evaluated in room B1, and a complete history and physical examination were performed. 2052: I reviewed the patient's [facility] 2147: I spoke to Dr. Huitron and she is signing off. She does not think that the patient is a thrombolytic candidate with her vague history and symptoms. The patient's symptoms have also largely resolved. 2151: I reviewed the patient's case with Dr. Pepper - [facility]Cristy aquino. Dr. Pepper will evaluate the patient for further management. Consultations Consultation #1: I reviewed the patient's case with [facility]. Time: 20:53 Consultation #2: I spoke to Dr. Huitron and she is signing off. She does not think that the patient is a thrombolytic candidate with her vague history and symptoms. The patient's symptoms have also largely resolved. Time: 21:48 Consultation #3: I reviewed the patient's case with Dr. Pepper - [facility]Cristy aquino. Dr. Pepper will evaluate the patient for further management. Time: 21:52 Administered Medications Sodium Chloride (Nss 1000ml) 1,000 mls @ 50 mls/hr IV .Q20H DONNA Stop: 06/10/19 20:59 Last Admin: 05/11/19 21:37 Dose: 50 mls/hr Documented by: [id number] Ioversol (Optiray 320 125ml) 119 ml IV ONCE PRN PRN Reason: Interaction Checking Stop: 05/15/19 20:55 Last Admin: 05/11/19 20:56 Dose: 119 ml Documented by: [id number] Medical Decision Making Differential Diagnosis Differential diagnosis: Etiologies such as metabolic, infection, hypo/hyperglycemia, electrolyte abnormalities, cardiac sources, intracerebral event, toxicologic, neurologic, as well as others were entertained. Medical Records Attestation: I reviewed the patient's medical records. Home Medications Current Medication List: was personally reviewed by me Laboratory Data Attestation: I reviewed the patient's lab results. Result diagrams: 05/11/19 21:11 05/11/19 21:11 Lab Results 05/11/19 05/11/19 05/11/19 Range/Units 21:11 21:11 21:15 PT 11.0 (9.0-12.0) Seconds INR 1.1 (0.9-1.1) APTT 24.1 (21.0-31.0) Seconds PTT Ratio 0.9 Sodium 128 L (136-145) mmol/L Potassium 3.9 (3.5-5.1) mmol/L Chloride 93 L (98-107) mmol/L Carbon Dioxide 28 (21-32) mmol/L Anion Gap 7.0 (3-11) BUN 11 (7-18) mg/dl Creatinine 0.85 (0.6-1.2) mg/dl Est Cr Clr Drug Dosing Not Reportable Est GFR ( Amer) 74.0 Est GFR (Non-Af Amer) 63.8 BUN/Creatinine Ratio 12.5 (10-20) Glucose 110 H (70-99) mg/dl POC Glucose 101 H (70-99) Calcium 9.1 (8.5-10.1) mg/dl Magnesium 1.9 (1.8-2.4) mg/dl Total Bilirubin 0.7 (0.2-1) mg/dl AST 27 (15-37) U/L ALT 27 (12-78) U/L Alkaline Phosphatase 87 (45-117) U/L Troponin I < 0.015 (0-0.045) ng/ml Total Protein 6.9 (6.4-8.2) gm/dl Albumin 3.7 (3.4-5.0) gm/dl Globulin 3.2 (2.5-4.0) gm/dl Albumin/Globulin Ratio 1.2 (0.9-2) Urine Color Urine Appearance (Clear) Urine pH (4.5-7.5) Ur Specific [place] (1.000-1.030) Urine Protein (Negative) Urine Glucose (UA) (Negative) Urine Ketones (Negative) Urine Blood (Negative) Urine Nitrite (Negative) Urine Bilirubin (Negative) Urine Urobilinogen (Negative) Ur Leukocyte Esterase (Negative) 05/11/19 Range/Units 21:25 PT (9.0-12.0) Seconds INR (0.9-1.1) APTT (21.0-31.0) Seconds PTT Ratio Sodium (136-145) mmol/L Potassium (3.5-5.1) mmol/L Chloride (98-107) mmol/L Carbon Dioxide (21-32) mmol/L Anion Gap (3-11) BUN (7-18) mg/dl Creatinine (0.6-1.2) mg/dl Est Cr Clr Drug Dosing Est GFR ( Amer) Est GFR (Non-Af Amer) BUN/Creatinine Ratio (10-20) Glucose (70-99) mg/dl POC Glucose (70-99) Calcium (8.5-10.1) mg/dl Magnesium (1.8-2.4) mg/dl Total Bilirubin (0.2-1) mg/dl AST (15-37) U/L ALT (12-78) U/L Alkaline Phosphatase (45-117) U/L Troponin I (0-0.045) ng/ml Total Protein (6.4-8.2) gm/dl Albumin (3.4-5.0) gm/dl Globulin (2.5-4.0) gm/dl Albumin/Globulin Ratio (0.9-2) Urine Color Yellow Urine Appearance Clear (Clear) Urine pH 8.5 H (4.5-7.5) Ur Specific [place] 1.019 (1.000-1.030) Urine Protein Negative (Negative) Urine Glucose (UA) Negative (Negative) Urine Ketones Negative (Negative) Urine Blood Negative (Negative) Urine Nitrite Negative (Negative) Urine Bilirubin Negative (Negative) Urine Urobilinogen Negative (Negative) Ur Leukocyte Esterase Negative (Negative) Imaging Data Attestation: I personally reviewed and interpreted this imaging study as follows: My Impression: XR CHEST 1V Findings: Chest x-ray is negative for acute disease. No pneumonia and pneumothr oax per my interpretation. Radiologist's Impression: Radiology results as stated below per my review and the radiologist's interpretation: CT head/brain wo con CLINICAL HISTORY: Strokelike symptoms COMPARISON STUDY: July 11, 2018 TECHNIQUE: Axial CT of the brain is performed from the vertex to the skull base. IV contrast was not administered for this examination. A dose lowering technique was utilized adhering to the principles of ALARA. CT DOSE: FINDINGS: No intra or extra-axial mass lesions are visualized. There is no CT evidence of acute cortical infarction. There is no evidence of midline shift. There is no acute hemorrhage. No calvarial fractures are visualized. There are patchy white matter hypodensities likely on a small vessel basis. 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 There is mild ventricular dilatation, finding which is felt to be secondary to volume loss. There is no is of acute sinusitis. There is an old left zygomatic arch fracture. There is an old left lateral orbital wall fracture. There are old nasal bone fractures. IMPRESSION: No acute intracranial findings Electronically signed by: Keven Pineda M.D. 05/11/2019 9:[address] angio neck with con CLINICAL HISTORY: Acute stroke COMPARISON STUDY: No previous studies for comparison. TECHNIQUE: CT angiography was performed from the aortic arch to the skull base. MIP imaging was performed. The patient was scanned in a dynamic helical fashion during intravenous administration of 119 cc of Optiray 320. A dose lowering technique was utilized adhering to the principles of ALARA. CT DOSE: Technique: CT angiogram of the carotid and vertebral arteries was obtained using intravenous contrast and 3-D reconstruction. NASCET criteria was utilized. Findings: The right carotid revealed no evidence of aneurysm and no evidence of dissectio n. There is no evidence of hemodynamic significant stenosis. Atheromatous changes are present the level of the right carotid bulb The left carotid revealed no evidence of hemodynamic significant stenosis. There is no evidence of aneurysm. There is no evidence of dissection. Atheromatous changes are present the level left carotid bulb There is no evidence of hemodynamically significant vertebral stenosis. There is no evidence of vertebral dissection. IMPRESSION: No evidence of hemodynamically significant carotid or vertebral artery stenosis. No evidence of dissection. Electronically signed by: Keven Pineda M.D. 05/11/2019 9:[address] angio head w con CLINICAL HISTORY: Acute stroke like symptoms TECHNIQUE: CT angiography of the head was performed in a dynamic helical fashion during intravenous administration of 119 cc of Optiray 320. MIP imaging was performed. A dose lowering technique was utilized adhering to the principles of ALARA. CT DOSE: 1020.81 mGy.cm COMPARISON STUDY: No previous studies for comparison. FINDINGS: There are no lesion suspicious for aneurysm. There are no major intracranial branch occlusions. The dural venous sinuses appear patent. There is no major intracranial stenosis. IMPRESSION: No significant abnormalities identified. Electronically signed by: Keven Pineda M.D. 05/11/2019 9:12 PM ECG Data Attestation: I personally reviewed and interpreted this ECG as follows: Indication: + other (stroke-like symptoms) Rate (beats per minute): 77 Rhythm: + other (atrial paced) ECG ST segments: no ST elevation ECG Findings: + PVCs; no PACs Blood Pressure Blood Pressure Findings: Elevated blood pressure Blood Pressure Disposition: further management by hospitalist CESAR Narrative This is an 83-year-old female who presents to the ED with a chief complaint of strokelike symptoms. The patient presents with a aphasia. The exact onset of symptoms is unclear. The patient's symptoms started prior to 5 PM. That is when the first recognized that the patient was not speaking clearly and was aphasic. The patient symptoms could have started before this. The patient has history of a traumatic head bleed in July of this year. The patient was a phasic for EMS but on her arrival she is speaking although with a little bit of a slur. This might be chronic, however. The patient also seems to be hard of hearing. She on my exam has some mild weakness in the left leg compared to the right but otherwise no focal deficits. No facial droop. The patient was evaluated by the stroke neurologist from [facility]. She did not feel the patient was a candidate for thrombolytics. She did recommend a metabolic/infectious work-up and possibly an MRI for further evaluation for stroke. The patient had a CT scan of her head that was negative for acute disease. CT scan angiogram of the head and neck were also negative for acute disease. EKG showed atrial paced rhythm. Urine did not show infection. Sodium was 128. Hemoglobin is around 14. The patient will be seen by the hospitalist for further evaluation and care. Impression & Plan TIA (transient ischemic attack), Hypertension, Hyponatremia Discharge Plan Visit Data Chief Complaint: Stroke Alert Stated Complaint: Stroke symptoms ED Provider: Marcos Graham Discharge Problem: TIA (transient ischemic attack), Hypertension, Hyponatremia Patient Disposition: Admitted As Inpatient Forms Stand Alone Forms: My [facility] Prescriptions Prescriptions: No Action losartan [Cozaar] 50 mg tablet 50 mg PO HS RF: 0 sennosides-docusate sodium [Senna Plus] 8.6-50 mg tablet 1 tab PO DAILY RF: 0 aspirin [Aspir-81] 81 mg Tablet,Delayed Release (Dr/Ec) 81 mg PO DAILY RF: 0 triamcinolone acetonide 0.1 % cream 1 applic TOPICAL UD RF: 0 levothyroxine 100 mcg tablet 100 mcg PO DAILY RF: 0 magnesium oxide [MagOx] 400 mg (241.3 mg magnesium) tablet 400 mg PO DAILY RF: 0 mirtazapine [Remeron] 15 mg tablet 15 mg PO HS RF: 0 metoprolol succinate [Toprol XL] 25 mg tablet extended release 24 hr 25 mg PO DAILY RF: 0 hydroxyzine HCl 10 mg tablet 10 mg PO TID PRN (Reason: anxiety/itching) RF: 0 calcium carbonate-vitamin D3 [Calcium 500 + D] 500 mg(1,250mg) -200 unit Tablet 1 tab PO BID RF: 0 acetaminophen [Tylenol] 325 mg Capsule 650 mg PO QID PRN (Reason: Pain) RF: 0 Referrals Referrals: Dee Rivera MD [Primary Care Provider] - Discharge Problem: Hypertension Qualifiers: Hypertension type: unspecified Qualified Code(s): I10 - Essential (primary) hypertension The scribe's documentation has been prepared under my direction and personally reviewed by me in its entirety. I confirm that the note above accurately reflects all work, treatment, procedures, and medical decision making performed by me.
[2019-05-11 22:28] LABS: Hematocrit (blood only) 44.1 % (37-47); Hemoglobin 14.4 g/dL (12.0-16.0); Mean Corpuscular Hemoglobin 31.8 pg (25-34); Mean Corpuscular Hgb Conc 32.7 g/dL (32-36); Mean Corpuscular Volume 97.4 fL (80-100); Mean Platelet Volume 10.5 fL (7.4-10.4); Platelet Count 210 K/uL (130-400); RDW Coefficient of Variation 12.8 % (11.5-14.5); RDW Standard Deviation 44.6 fL (36.4-46.3); Red Blood Count 4.53 M/uL (4.2-5.4); White Blood Count 6.73 K/uL (4.8-10.8)
[2019-05-11 22:29] LABS: ALC (manual) 1.47 K/uL (1.2-3.4); ANC (manual) 4.72 K/uL (1.4-6.5); Basophils # (manual) 0.12 K/uL (0-0.2); Basophils % (manual) 1.8 %; Echinocytes 1+; Eosinophils # (manual) 0.06 K/uL (0-0.5); Eosinophils % (manual) 0.9 %; Lymphocytes # (manual) 1.47 K/uL (1.2-3.4); Lymphocytes % (manual) 21.9 %; Monocytes # (manual) 0.36 K/uL (0.11-0.59); Monocytes % (manual) 5.3 %; Neutrophils # (manual) 4.72 K/uL (1.4-6.5); Neutrophils % (manual) 70.1 %
--- NOTE | 2019-05-11 22:32 | History & Physical Report ---
Date of Service May 11, 2019 Assessment & Plan (1) TIA (transient ischemic attack): Presenting as expressive aphasia Improving symptoms as per EMS evaluation upon arrival to the ER. Patient at risk for embolic CVA hx sick sinus syndrome status post PPM off Coumadin secondary to traumatic intracranial hemorrhage hypertension, possibly elevated secondary to above Acute on chronic hyponatremia Hypothyroidism, euthyroid as of today's TSH Hyperglycemia rule out DM Medical telemetry Neurochecks Repeat CT head in a.m. as MRI precluded by PPM Neurology consult RE aphasia Permissive hypertension until acute stroke ruled out Careful correction of sodium, may need fluid restriction, hyponatremia work-up Nephrology consult if without improvement Check hemoglobin A1c DVT prophylaxis. SCDs RE history traumatic ICH Full code as per daughter, Ms. Erika Ramsey. She requests updates from providers, [phone]. History of Present Illness Chief Complaint: "I cannot..." as per patient Aphasia as per records Primary Care Provider: Dee Rivera MD History obtained from patient, family, and records. History somewhat limited from patient secondary to aphasia. Medical history significant for sick sinus syndrome status post PPM off Coumadin secondary to traumatic intracranial hemorrhage, hypertension, hypothyroidism, chronic hyponatremia, osteoarthritis, skin cancer as per records. Recent confinement [facility] July 2018 for traumatic cortical hemorrhage left frontoparietal region secondary to mechanical fall. Patient transferred to [facility]. No neurosurgical intervention as per records. Patient Coumadin for A. fib stopped on discharge. Around 5 PM today patient noted by to have difficulty getting the words out. Transient headache symptoms. BSG at home noted to be 113. Upon arrival at the ER, aphasia improving as per EMS. 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, lives with Allergies Allergy/AdvReac Type Severity Reaction Status Date / Time latex Allergy Unknown skin Verified 05/11/19 22:24 irritation lisinopril Allergy Unknown COUGH Verified 05/11/19 22:24 mirtazapine Allergy Rash Verified 05/11/19 22:25 Home Medications Home Medications Medication Instructions Recorded Confirmed Type acetaminophen [Tylenol] 650 mg PO QID PRN 05/11/19 05/11/19 History aspirin [Aspir-81] 81 mg PO DAILY 05/11/19 05/11/19 History calcium carbonate-vitamin D3 1 tab PO BID 05/11/19 05/11/19 History [Calcium 500 + D] hydroxyzine HCl 10 mg PO TID PRN 05/11/19 05/11/19 History levothyroxine 100 mcg PO DAILY 05/11/19 05/11/19 History losartan [Cozaar] 50 mg PO HS 05/11/19 05/11/19 History magnesium oxide [MagOx] 400 mg PO DAILY 05/11/19 05/11/19 History metoprolol succinate [Toprol XL] 25 mg PO DAILY 05/11/19 05/11/19 History mirtazapine [Remeron] 15 mg PO HS 05/11/19 05/11/19 History sennosides-docusate sodium [Senna 1 tab PO DAILY 05/11/19 05/11/19 History Plus] triamcinolone acetonide 1 applic TOPICAL UD 05/11/19 05/11/19 History Past Med/Surg History Social History 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: No Beliefs That Will Affect Care: None marital status: Current Living Situation: Alone current occupational status: retired Feels Safe at Home: Yes Safety Concerns: Feels Safe At This Time Smoking Status: Never smoker Hx Alcohol Use: No Hx Substance Use: No Review of Systems Review of Systems: Could not be reliably obtained Physical Exam Physical Exam: GENERAL: Comfortable, aphasic, looks younger than stated age, no respiratory distress SKIN: Normal color, warm HEENT: [place] palpebral conjunctivae, no ptosis, dry buccal mucosa NECK : Supple, no tenderness CHEST : CTA, no tenderness HEART : RRR, systolic murmur ABDOMEN: Soft, nontender EXTREMITIES : No LE swelling/tenderness, no other conspicuous deformities noted NEUROLOGIC : Aphasic, follows some commands, no facial asymmetry, gait and stance not assessed Results & Data Vital Signs (Past 12 Hours) Vital Signs Temp Pulse Resp BP Pulse Ox 05/11/19 21:41 64 18 197/96 H 96 05/11/19 21:27 63 20 198/96 H 95 05/11/19 21:21 68 18 206/127 H 97 05/11/19 21:15 75 18 185/112 H 95 05/11/19 21:11 36.6 C 79 20 203/117 H 95 Laboratory Results Laboratory Results WBC 6.73 K/uL (4.8-10.8) 05/11/19 21:11 RBC 4.53 M/uL (4.2-5.4) 05/11/19 21:11 Hgb 14.4 g/dL (12.0-16.0) 05/11/19 21:11 Hct 44.1 % (37-47) 05/11/19 21:11 MCV 97.4 fL (80-100) 05/11/19 21:11 MCH 31.8 pg (25-34) 05/11/19 21:11 MCHC 32.7 g/dL (32-36) 05/11/19 21:11 RDW Std Deviation 44.6 fL (36.4-46.3) 05/11/19 21:11 RDW Coeff of Del 12.8 % (11.5-14.5) 05/11/19 21:11 Plt Count 210 K/uL (130-400) 05/11/19 21:11 MPV 10.5 fL (7.4-10.4) H 05/11/19 21:11 Neutrophils % (Manual) 70.1 % 05/11/19 21:11 Lymphocytes % (Manual) 21.9 % 05/11/19 21:11 Monocytes % (Manual) 5.3 % 05/11/19 21:11 Eosinophils % (Manual) 0.9 % 05/11/19 21:11 Basophils % (Manual) 1.8 % 05/11/19 21:11 Neutrophils # (Manual) 4.72 K/uL (1.4-6.5) 05/11/19 21:11 Total Absolute Neuts 4.72 K/uL (1.4-6.5) 05/11/19 21:11 Lymphocytes # (Manual) 1.47 K/uL (1.2-3.4) 05/11/19 21:11 Total Abs Lymphocytes 1.47 K/uL (1.2-3.4) 05/11/19 21:11 Monocytes # (Manual) 0.36 K/uL (0.11-0.59) 05/11/19 21:11 Eosinophils # (Manual) 0.06 K/uL (0-0.5) 05/11/19 21:11 Basophils # (Manual) 0.12 K/uL (0-0.2) 05/11/19 21:11 Echinocytes 1+ 05/11/19 21:11 PT 11.0 Seconds (9.0-12.0) 05/11/19 21:11 INR 1.1 (0.9-1.1) 05/11/19 21:11 APTT 24.1 Seconds (21.0-31.0) 05/11/19 21:11 PTT Ratio 0.9 05/11/19 21:11 Sodium 128 mmol/L (136-145) L 05/11/19 21:11 Potassium 3.9 mmol/L (3.5-5.1) 05/11/19 21:11 Chloride 93 mmol/L (98-107) L 05/11/19 21:11 Carbon Dioxide 28 mmol/L (21-32) 05/11/19 21:11 Anion Gap 7.0 (3-11) 05/11/19 21:11 BUN 11 mg/dl (7-18) 05/11/19 21:11 Creatinine 0.85 mg/dl (0.6-1.2) 05/11/19 21:11 Est Cr Clr Drug Dosing Not Reportable 05/11/19 21:11 Est GFR ( Amer) 74.0 05/11/19 21:11 Est GFR (Non-Af Amer) 63.8 05/11/19 21:11 BUN/Creatinine Ratio 12.5 (10-20) 05/11/19 21:11 Glucose 110 mg/dl (70-99) H 05/11/19 21:11 POC Glucose 101 (70-99) H 05/11/19 21:15 Calcium 9.1 mg/dl (8.5-10.1) 05/11/19 21:11 Magnesium 1.9 mg/dl (1.8-2.4) 05/11/19 21:11 Total Bilirubin 0.7 mg/dl (0.2-1) 05/11/19 21:11 AST 27 U/L (15-37) 05/11/19 21:11 ALT 27 U/L (12-78) 05/11/19 21:11 Alkaline Phosphatase 87 U/L (45-117) 05/11/19 21:11 Troponin I < 0.015 ng/ml (0-0.045) 05/11/19 21:11 Total Protein 6.9 gm/dl (6.4-8.2) 05/11/19 21:11 Albumin 3.7 gm/dl (3.4-5.0) 05/11/19 21:11 Globulin 3.2 gm/dl (2.5-4.0) 05/11/19 21:11 Albumin/Globulin Ratio 1.2 (0.9-2) 05/11/19 21:11 TSH 1.530 uIu/ml (0.300-4.500) 05/11/19 21:11 Urine Color Yellow 05/11/19 21:25 Urine Appearance Clear (Clear) 05/11/19 21:25 Urine pH 8.5 (4.5-7.5) H 05/11/19 21:25 Ur Specific [place] 1.019 (1.000-1.030) 05/11/19 21:25 Urine Protein Negative (Negative) 05/11/19 21:25 Urine Glucose (UA) Negative (Negative) 05/11/19 21:25 Urine Ketones Negative (Negative) 05/11/19 21:25 Urine Blood Negative (Negative) 05/11/19 21:25 Urine Nitrite Negative (Negative) 05/11/19 21:25 Urine Bilirubin Negative (Negative) 05/11/19 21:25 Urine Urobilinogen Negative (Negative) 05/11/19 21:25 Ur Leukocyte Esterase Negative (Negative) 05/11/19 21:[address] head: No acute intracranial findings Head CTA: No significant abnormalities identified. Neck CTA: No evidence of hemodynamically significant carotid or vertebral artery stenosis. No evidence of dissection. Chest x-ray: 1. Resolution of the previously described congestive failure 2. Mild cardiomegaly 3. Emphysema 4. Mild right lower lobe peribronchial thickening EKG as per my interpretation rate 80, paced rhythm
[2019-05-11] MEDS ORDERED: PROMETHAZINE HCL 12.5 MG in SODIUM CHLORIDE 0.9% 50 ML IV PRN (23:51)
[2019-05-11] MEDS ORDERED: OXYCODONE HCL IR 5 MG TAB (IMMEDIATE RELEASE) PO PRN (23:51)
[2019-05-11] MEDS ORDERED: NITROGLYCERIN SL 0.4 MG/TAB TAB SL PRN (23:51)
[2019-05-12] MEDS ORDERED: ACETAMINOPHEN 325 MG TAB PO PRN (00:12)
[2019-05-12 03:59] LABS: Basophils # (auto) 0.01 K/uL (0-0.2); Basophils % (auto) 0.1 %; Eosinophils # (auto) 0.01 K/uL (0-0.5); Eosinophils % (auto) 0.1 %; Hematocrit (blood only) 40.4 % (37-47); Hemoglobin 13.9 g/dL (12.0-16.0); Immature Granulocytes # (auto) 0.02 K/uL (0.00-0.02); Immature Granulocytes % (auto) 0.3 %; Lymphocytes # (auto) 1.27 K/uL (1.2-3.4); Lymphocytes % (auto) 17.3 %; Mean Corpuscular Hemoglobin 32.3 pg (25-34); Mean Corpuscular Hgb Conc 34.4 g/dL (32-36); Mean Platelet Volume 10.2 fL (7.4-10.4); Monocytes # (auto) 0.67 K/uL (0.11-0.59); Monocytes % (auto) 9.1 %; Neutrophils # (auto) 5.38 K/uL (1.4-6.5); Neutrophils % (auto) 73.1 %; Platelet Count 188 K/uL (130-400); RDW Coefficient of Variation 12.7 % (11.5-14.5); RDW Standard Deviation 43.2 fL (36.4-46.3); White Blood Count 7.36 K/uL (4.8-10.8)
[2019-05-12 04:17] LABS: BUN Creatinine Ratio 14.5 (10-20); Calcium 9.3 mg/dl (8.5-10.1); Creatinine Clr Calc Pharmacy 66.2 ml/min; Est GFR (African American) 94.4; Est GFR (Non-African American) 81.5; Potassium 3.7 mmol/L (3.5-5.1)
[2019-05-12] MEDS: LEVOTHYROXINE SODIUM 100 MCG TABLET PO SCH (05:55)
[2019-05-12 06:34] LABS: Estimated Average Glucose 105 mg/dl; Hemoglobin A1C 5.3 % (4.5-5.6)
[2019-05-12] MEDS: ASPIRIN 81 MG ECTAB PO SCH (08:39)
[2019-05-12] MEDS: METOPROLOL SUCC 25MG EXT REL TAB PO SCH (08:40)
[2019-05-12] MEDS: DOCUSATE SODIUM/SENNA 50/8.6MG TAB PO SCH (08:40)
[2019-05-12] MEDS ORDERED: METOPROLOL SUCC 25MG EXT REL TAB PO SCH (09:00)
--- NOTE | 2019-05-12 14:20 | Neurology Consultation ---
Date of Consultation May 12, 2019 Assessment & Plan (1) TIA (transient ischemic attack): 1. aspirin 81 mg on daily basis, add plavix 75 mg daily x 3 weeks then stop the plavix, aspirin for a lifetime 2. PT/OT for discharge needs 3. TTE- if not done 4. CTA head and neck no acute findings 5. no stroke on CT head- unable to have MRI brain due to the recent placement of pacemaker 6. fall precautions 7. weight loss should be evaluated by PCP - diet change or other issues 8. ZIO as outpatient x 2 weeks 9. cardiology for need to transition back to coumadin if needed will see back in our office in 4-6 weeks. OLIVIA Mcghee neurology Supervising Physician Co-Signing Physician Notes I have seen and discussed above patient with Dr Shravan Montilla, neurology I seen and examined Mrs. Don today, reviewed her history, discussed the case with Kizzy Garcia PA-C find her to be neurologically clear in terms of her language function, somewhat restless which according to her is her baseline, and have evidence for a mild peripheral neuropathy with areflexia at the ankles knees diminished vibratory sense, diminished proprioception, light touch and temperature which actually makes her significant risk for treating Coumadin in the setting. She is walker dependent but also has to provide care for her ailing so will be subject to trying to operate independent of the walker and lost the event of further fall risk this point that she is Whenever the case we have to consider this a TIA possibly embolic from her known paroxysmal atrial fibrillation and I think we are going to suggest a ZIO Patch be done to detect the potential presence of paroxysms of atrial fibrillation which might not be detected by interrogating her pacemaker For now I would simply go with the dual antiplatelet therapy i.e. 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 She does frequently [facility] office both her primary care and cardiology is well-known to them so I think she could be followed up there after this event and could see us on one occasion as per the standard post TIA/CVA protocol in about 4 to 6 weeks We will be signing off the case at this point unless of course she has recurrent events Shravan Montilla MD History of Present Illness Reason for Consultation: aphasia Requesting Physician: Blayne Jenkins MD Attending Physician: Blayne Jenkins MD History of Present Illness Arlene is an 83 year old female with a history of ICH in July (coumadin stopped), AF, HTN, hypothyroidism who had a worsening of stroke like symptoms. She was eating dinner and her notice she was not acting herself and having trouble getting words out. Her has dementia. She recently had a pacemaker placed due to SSS. She states since her fall in July she has not taken Coumadin and is not on plavix or aspirin but dose take an occasional aspirin. (on med list as daily medication). denies any new falls, CP, SOB, abdominal pain, one sided weakness, numbness tingling, vision changes, N, V, bowel or bladder issues, +weight loss of 30 pounds. She states the slurred speech lasted about 12 hours and then resolved. Allergies Allergy/AdvReac Type Severity Reaction Status Date / Time latex Allergy Unknown skin Verified 05/11/19 22:24 irritation lisinopril Allergy Unknown COUGH Verified 05/11/19 22:24 mirtazapine Allergy Rash Verified 05/11/19 22:25 Home Medications Home Medications Medication Instructions Recorded Confirmed Type acetaminophen [Tylenol] 650 mg PO QID PRN 05/11/19 05/11/19 History aspirin [Aspir-81] 81 mg PO DAILY 05/11/19 05/11/19 History calcium carbonate-vitamin D3 1 tab PO BID 05/11/19 05/11/19 History [Calcium 500 + D] hydroxyzine HCl 10 mg PO TID PRN 05/11/19 05/11/19 History levothyroxine 100 mcg PO DAILY 05/11/19 05/11/19 History losartan [Cozaar] 50 mg PO HS 05/11/19 05/11/19 History magnesium oxide [MagOx] 400 mg PO DAILY 05/11/19 05/11/19 History metoprolol succinate [Toprol XL] 25 mg PO DAILY 05/11/19 05/11/19 History mirtazapine [Remeron] 15 mg PO HS 05/11/19 05/11/19 History sennosides-docusate sodium [Senna 1 tab PO DAILY 05/11/19 05/11/19 History Plus] triamcinolone acetonide 1 applic TOPICAL UD 05/11/19 05/11/19 History Patient History Social History Preferred Language: [place]er Communication Ability: Effective 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: No Beliefs That Will Affect Care: None marital status: Current Living Situation: Alone current occupational status: retired Feels Safe at Home: Yes Safety Concerns: Feels Safe At This Time Smoking Status: Never smoker Hx Alcohol Use: No Hx Substance Use: No Physical Exam Physical Exam: Physical Exam: Constitutional: appearance nourished, healthy and normal Ears, Nose, Mouth and Throat: mucous membranes moist, no injection and skin normal, eyes normal Cardiovascular: normal S-1 and S-2 and regular rate and rhythm Respiratory: course breath sounds Musculoskeletal: no peripheral edema and good distal pulses Skin: no stigmata of neurocutaneous disease noted and normal and intact Eyes: extraocular muscles intact (EOMI) and pupils equal, round and reactive to light (PERRL) NEUROLOGIC EXAMINATION: Mental status: Alert and interactive Oriented to full date and location Oriented to person Speech fluent with no evidence of aphasia, knows [facility], 2019, Trump president, closes eyes, sticks out tongue, point to ceiling with right hand Cranial Nerves smile eye brow raise symmetric slight flattening of left nasolabial fold Reflexes: Deep tendon reflexes were symmetrical and graded 2/5. down going toes Sensory: vibration decreased from mid [place]ldon down, cool and light touch intact Coordination: finger to nose no bi pass Gait/Stance: Posture kyphosis, sitting up in bed side chair Motor: Negative for pronator drift of out stretched arms with eyes closed. 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 triceps 5/5 bilaterally , hip flex plantar patellar flex ext 5/5 bilaterally Results & Data Vital Signs (Past 12 Hours) Vital Signs Temp Pulse Pulse Resp BP BP Pulse Ox 05/12/19 11:23 58 L 18 139/75 95 05/12/19 08:00 60 05/12/19 07:29 36.8 C 58 L 18 147/70 H 94 05/12/19 03:17 36.7 C 60 18 172/85 H 95 Laboratory Results Abnormal lab results 05/11/19 05/11/19 05/11/19 Range/Units 21:11 21:11 21:11 MPV 10.5 H (7.4-10.4) fL [place] # (Auto) (0.11-0.59) K/uL Sodium 128 L (136-145) mmol/L Chloride 93 L (98-107) mmol/L Glucose 110 H (70-99) mg/dl POC Glucose (70-99) Osmolality 277 L (280-300) mOsm/kg Urine pH (4.5-7.5) Urine Osmolality (500-800) mOsm/kg 05/11/19 05/11/19 05/11/19 Range/Units 21:15 21:25 21:25 MPV (7.4-10.4) fL [place] # (Auto) (0.11-0.59) K/uL Sodium (136-145) mmol/L Chloride (98-107) mmol/L Glucose (70-99) mg/dl POC Glucose 101 H (70-99) Osmolality (280-300) mOsm/kg Urine pH 8.5 H (4.5-7.5) Urine Osmolality 293 L (500-800) mOsm/kg 05/12/19 05/12/19 Range/Units 03:47 03:47 MPV (7.4-10.4) fL [place] # (Auto) 0.67 H (0.11-0.59) K/uL Sodium 130 L (136-145) mmol/L Chloride 95 L (98-107) mmol/L Glucose 104 H (70-99) mg/dl POC Glucose (70-99) Osmolality (280-300) mOsm/kg Urine pH (4.5-7.5) Urine Osmolality (500-800) mOsm/kg Diagnostic Findings CXR-The heart is enlarged. There is a left subclavian dual-chamber central venous pacemaker. There is pulmonary emphysema. There is been resolution of the previously described congestive failure. There is no lobar consolidation. There is mild right lower lobe peribronchial thickening. CTA head-No significant abnormalities identified. CTA neck-No evidence of hemodynamically significant carotid or vertebral artery stenosis. No evidence of dissection.
--- NOTE | 2019-05-12 17:06 | CT Scan Report ---
CT head/brain wo con CLINICAL HISTORY: Transient ischemic attack. Headache. Dizziness. Follow-up study. COMPARISON STUDY: 05/11/2019 TECHNIQUE: Axial CT of the brain is performed from the vertex to the skull base. IV contrast was not administered for this examination. A dose lowering technique was utilized adhering to the principles of ALARA. CT DOSE: 821.00 mGycm FINDINGS: No intra or extra-axial mass lesions are visualized. There is no CT evidence of acute cortical infarc tion. There is no evidence of midline shift. There is no acute hemorrhage. No calvarial fractures ar e visualized. There are patchy white matter hypodensities likely on a small vessel basis. 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 There is no evidence of pathologic ventricular dilatation. There are old left-sided facial fractures. There is no acute sinusitis. IMPRESSION: No acute intracranial findings Electronically signed by: Keven Pineda M.D. 05/12/2019 5:05 PM
--- NOTE | 2019-05-12 17:16 | Hospitalist Progress Note ---
Date of Service May 12, 2019 Assessment & Plan (1) TIA (transient ischemic attack): Presenting as expressive aphasia per admitting physician Dr. Pepper: Improving symptoms as per EMS evaluation upon arrival to the ER. 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 Montilla Recommendation: aspirin 81 mg on daily basis, add plavix 75 mg daily x 3 weeks then stop the plavix, aspirin for a lifetime ZIO patch as outpatient --PT OT evaluation hypertension, possibly elevated secondary to above --Continue metoprolol, hold losartan to prevent hypotension, promote cerebral perfusion Acute on chronic hyponatremia --Baseline sodium 1 31-1 36 --Monitor sodium level Hypothyroidism, euthyroid as of today's TSH DVT prophylaxis. SCDs RE history traumatic ICH Full code as per daughter, Ms. Erika Ramsey. She requests updates from providers, [phone]. Disposition PT and OT evaluation pending Patient lives at home with patient's Subjective Follow-up for aphasia Seen sitting up in bed, comfortable, awake, alert, oriented x3 Answers questions appropriately States her speech is better but still not at the present at baseline Denies any other focal neurologic symptoms Mild frontal headache, no dizziness, no nausea no chest pain no abdominal pain no other symptoms Review of Systems Review of Systems: All systems reviewed & are unremarkable except as noted in HPI & below Physical Exam Physical Exam: General- oriented x 3, not in distress, speaks in sentences with no effort or accessory muscle use Eyes- anicteric Neck- no JVD Lungs- clear breath sounds bilaterally, no rales/wheezes Heart- normal rate, regular rhythm; no murmurs Abdomen- normal bowel sounds, nondistended, soft, nontender Extremities- no pretibial edema, no calf tenderness Neuro- alert, oriented x 3; cranial respiratory grossly intact except for occasional word finding, strength 5/5 in all extremities, sensation 100% on all extremities No other neurologic symptoms Skin- warm & dry Results & Data Vital Signs (Past 12 Hours) Vital Signs Temp Pulse Pulse Resp BP BP Pulse Ox 05/12/19 16:00 62 05/12/19 15:53 36.5 C 60 19 155/88 H 95 05/12/19 11:23 58 L 18 139/75 95 05/12/19 08:00 60 05/12/19 07:29 36.8 C 58 L 18 147/70 H 94 Laboratory Results Laboratory Results - last 24 hr 05/11/19 05/11/19 05/11/19 21:11 21:11 21:11 WBC 6.73 RBC 4.53 Hgb 14.4 Hct 44.1 MCV 97.4 MCH 31.8 MCHC 32.7 RDW Std Deviation 44.6 RDW Coeff of Del 12.8 Plt Count 210 MPV 10.5 H Immature Gran % (Auto) Neut % (Auto) Lymph % (Auto) [place] % (Auto) Eos % (Auto) Baso % (Auto) Immature Gran # (Auto) Neut # (Auto) Lymph # (Auto) [place] # (Auto) Eos # (Auto) Baso # (Auto) Neutrophils % (Manual) 70.1 Lymphocytes % (Manual) 21.9 Monocytes % (Manual) 5.3 Eosinophils % (Manual) 0.9 Basophils % (Manual) 1.8 Neutrophils # (Manual) 4.72 Total Absolute Neuts 4.72 Lymphocytes # (Manual) 1.47 Total Abs Lymphocytes 1.47 Monocytes # (Manual) 0.36 Eosinophils # (Manual) 0.06 Basophils # (Manual) 0.12 Echinocytes 1+ PT 11.0 INR 1.1 APTT 24.1 PTT Ratio 0.9 Sodium 128 L Potassium 3.9 Chloride 93 L Carbon Dioxide 28 Anion Gap 7.0 BUN 11 Creatinine 0.85 Est Cr Clr Drug Dosing Not Reportable Est GFR ( Amer) 74.0 Est GFR (Non-Af Amer) 63.8 BUN/Creatinine Ratio 12.5 Glucose 110 H POC Glucose Estimat Average Glucose Hemoglobin A1c Osmolality Calcium 9.1 Magnesium 1.9 Total Bilirubin 0.7 AST 27 ALT 27 Alkaline Phosphatase 87 Troponin I < 0.015 Total Protein 6.9 Albumin 3.7 Globulin 3.2 Albumin/Globulin Ratio 1.2 Triglycerides Cholesterol LDL Cholesterol, Calc VLDL Cholesterol, Calc HDL Cholesterol Cholesterol/HDL Ratio TSH 1.530 Urine Color Urine Appearance Urine pH Ur Specific [place] Urine Protein Urine Glucose (UA) Urine Ketones Urine Blood Urine Nitrite Urine Bilirubin Urine Urobilinogen Ur Leukocyte Esterase Urine Osmolality Ur Random Sodium Blood Type Antibody Screen 05/11/19 05/11/19 05/11/19 21:11 21:11 21:11 WBC RBC Hgb Hct MCV MCH MCHC RDW Std Deviation RDW Coeff of Del Plt Count MPV Immature Gran % (Auto) Neut % (Auto) Lymph % (Auto) [place] % (Auto) Eos % (Auto) Baso % (Auto) Immature Gran # (Auto) Neut # (Auto) Lymph # (Auto) [place] # (Auto) Eos # (Auto) Baso # (Auto) Neutrophils % (Manual) Lymphocytes % (Manual) Monocytes % (Manual) Eosinophils % (Manual) Basophils % (Manual) Neutrophils # (Manual) Total Absolute Neuts Lymphocytes # (Manual) Total Abs Lymphocytes Monocytes # (Manual) Eosinophils # (Manual) Basophils # (Manual) Echinocytes PT INR APTT PTT Ratio Sodium Potassium Chloride Carbon Dioxide Anion Gap BUN Creatinine Est Cr Clr Drug Dosing Est GFR ( Amer) Est GFR (Non-Af Amer) BUN/Creatinine Ratio Glucose POC Glucose Estimat Average Glucose 105 Hemoglobin A1c 5.3 Osmolality 277 L Calcium Magnesium Total Bilirubin AST ALT Alkaline Phosphatase Troponin I Total Protein Albumin Globulin Albumin/Globulin Ratio Triglycerides Cholesterol LDL Cholesterol, Calc VLDL Cholesterol, Calc HDL Cholesterol Cholesterol/HDL Ratio TSH Urine Color Urine Appearance Urine pH Ur Specific [place] Urine Protein Urine Glucose (UA) Urine Ketones Urine Blood Urine Nitrite Urine Bilirubin Urine Urobilinogen Ur Leukocyte Esterase Urine Osmolality Ur Random Sodium Blood Type O Positive Antibody Screen NEGATIVE 05/11/19 05/11/19 05/11/19 21:15 21:25 21:25 WBC RBC Hgb Hct MCV MCH MCHC RDW Std Deviation RDW Coeff of Del Plt Count MPV Immature Gran % (Auto) Neut % (Auto) Lymph % (Auto) [place] % (Auto) Eos % (Auto) Baso % (Auto) Immature Gran # (Auto) Neut # (Auto) Lymph # (Auto) [place] # (Auto) Eos # (Auto) Baso # (Auto) Neutrophils % (Manual) Lymphocytes % (Manual) Monocytes % (Manual) Eosinophils % (Manual) Basophils % (Manual) Neutrophils # (Manual) Total Absolute Neuts Lymphocytes # (Manual) Total Abs Lymphocytes Monocytes # (Manual) Eosinophils # (Manual) Basophils # (Manual) Echinocytes PT INR APTT PTT Ratio Sodium Potassium Chloride Carbon Dioxide Anion Gap BUN Creatinine Est Cr Clr Drug Dosing Est GFR ( Amer) Est GFR (Non-Af Amer) BUN/Creatinine Ratio Glucose POC Glucose 101 H Estimat Average Glucose Hemoglobin A1c Osmolality Calcium Magnesium Total Bilirubin AST ALT Alkaline Phosphatase Troponin I Total Protein Albumin Globulin Albumin/Globulin Ratio Triglycerides Cholesterol LDL Cholesterol, Calc VLDL Cholesterol, Calc HDL Cholesterol Cholesterol/HDL Ratio TSH Urine Color Yellow Urine Appearance Clear Urine pH 8.5 H Ur Specific [place] 1.019 Urine Protein Negative Urine Glucose (UA) Negative Urine Ketones Negative Urine Blood Negative Urine Nitrite Negative Urine Bilirubin Negative Urine Urobilinogen Negative Ur Leukocyte Esterase Negative Urine Osmolality 293 L Ur Random Sodium Blood Type Antibody Screen 05/11/19 05/12/19 05/12/19 21:25 03:47 03:47 WBC 7.36 RBC 4.30 Hgb 13.9 Hct 40.4 MCV 94.0 MCH 32.3 MCHC 34.4 RDW Std Deviation 43.2 RDW Coeff of Del 12.7 Plt Count 188 MPV 10.2 Immature Gran % (Auto) 0.3 Neut % (Auto) 73.1 Lymph % (Auto) 17.3 [place] % (Auto) 9.1 Eos % (Auto) 0.1 Baso % (Auto) 0.1 Immature Gran # (Auto) 0.02 Neut # (Auto) 5.38 Lymph # (Auto) 1.27 [place] # (Auto) 0.67 H Eos # (Auto) 0.01 Baso # (Auto) 0.01 Neutrophils % (Manual) Lymphocytes % (Manual) Monocytes % (Manual) Eosinophils % (Manual) Basophils % (Manual) Neutrophils # (Manual) Total Absolute Neuts Lymphocytes # (Manual) Total Abs Lymphocytes Monocytes # (Manual) Eosinophils # (Manual) Basophils # (Manual) Echinocytes PT INR APTT PTT Ratio Sodium 130 L Potassium 3.7 Chloride 95 L Carbon Dioxide 30 Anion Gap 5.0 BUN 10 Creatinine 0.68 Est Cr Clr Drug Dosing 66.2 Est GFR ( Amer) 94.4 Est GFR (Non-Af Amer) 81.5 BUN/Creatinine Ratio 14.5 Glucose 104 H POC Glucose Estimat Average Glucose Hemoglobin A1c Osmolality Calcium 9.3 Magnesium Total Bilirubin AST ALT Alkaline Phosphatase Troponin I Total Protein Albumin Globulin Albumin/Globulin Ratio Triglycerides 66 Cholesterol 129 LDL Cholesterol, Calc 51 VLDL Cholesterol, Calc 13 HDL Cholesterol 65 Cholesterol/HDL Ratio 2 TSH Urine Color Urine Appearance Urine pH Ur Specific [place] Urine Protein Urine Glucose (UA) Urine Ketones Urine Blood Urine Nitrite Urine Bilirubin Urine Urobilinogen Ur Leukocyte Esterase Urine Osmolality Ur Random Sodium 120 Blood Type Antibody Screen
[2019-05-12] MEDS: CLOPIDOGREL BISULFATE 75 MG TAB PO SCH (17:56)
[2019-05-13] MEDS: LEVOTHYROXINE SODIUM 100 MCG TABLET PO SCH (06:09)
[2019-05-13] MEDS: ASPIRIN 81 MG ECTAB PO SCH (08:57)
[2019-05-13] MEDS: CLOPIDOGREL BISULFATE 75 MG TAB PO SCH (08:57)
[2019-05-13] MEDS: DOCUSATE SODIUM/SENNA 50/8.6MG TAB PO SCH (08:57)
[2019-05-13] MEDS: METOPROLOL SUCC 25MG EXT REL TAB PO SCH (08:58)
--- NOTE | 2019-05-13 16:11 | Hospitalist Progress Note ---
Date of Service May 13, 2019 Assessment & Plan (1) TIA (transient ischemic attack): TIA possibly embolic from known hx of paroxysmal atrial fibrillation off Coumadin secondary to traumatic intracranial hemorrhage Presented with transient episode of expressive aphasia Improving symptoms as per EMS evaluation upon arrival to the ER. at present , speech is fluent , conversing appropriately no weakness or paresthesia --CT head: No acute process --MRI brain contraindicated in light of pacemaker device --Evaluated by neurologist Dr. Montilla-appreciate input Recommendation: aspirin 81 mg on daily basis, add plavix 75 mg daily x 3 weeks then stop the plavix, aspirin for a lifetime --PT OT evaluation-appreciated , recommends rehab HTN --Continue metoprolol, losartan Acute on chronic hyponatremia --Baseline sodium 131-136 --Monitor sodium level Hypothyroidism, euthyroid as of recent TSH DVT prophylaxis. SCDs RE history traumatic ICH Full code as per daughter, Ms. Erika Ramsey. She requests updates from providers, [phone]. Disposition PT and OT evaluation recommends rehab referral made to [facility] to rehab possible tomorrow if insurance auth available Subjective very pleasant denies of any pain or discomfort feels fine no cough , no fever or chills no dizzy spell or lightheadedness Physical Exam Constitutional: WD/WN, vitals as above + thin; no acute distress Eyes: PERRL, conjunctivae normal, anicteric sclerae ENMT: external ear and nose normal, oropharynx normal Neck: trachea midline, no thyromegaly Respiratory: normal respiratory effort, lungs clear to auscultation Cardiovascular: RRR, no murmur, no edema Gastrointestinal (Abdomen): Inspection/Auscultation: normal bowel sounds Percussion/Palpation: abdomen soft; abdomen nontender Skin: no rashes, warm and dry Neurologic: PERRL, EOMI, accommodation nl, no face palsy, no dysarthria Psychiatric: A+Ox3, euthymic affect Results & Data Vital Signs (Past 12 Hours) Vital Signs Temp Pulse Pulse Resp BP Pulse Ox 05/13/19 15:51 36.7 C 60 18 134/72 97 05/13/19 11:00 36.5 C 61 18 119/71 95 05/13/19 07:22 36.3 C L 63 16 156/86 H 97 05/13/19 07:00 61
[2019-05-14] MEDS: LEVOTHYROXINE SODIUM 100 MCG TABLET PO SCH (06:13)
[2019-05-14] MEDS: ASPIRIN 81 MG ECTAB PO SCH (08:08)
[2019-05-14] MEDS: CLOPIDOGREL BISULFATE 75 MG TAB PO SCH (08:09)
[2019-05-14] MEDS: METOPROLOL SUCC 25MG EXT REL TAB PO SCH (08:09)
[2019-05-14] MEDS: ATORVASTATIN 40 MG TAB PO SCH (08:09)
[2019-05-14] MEDS: DOCUSATE SODIUM/SENNA 50/8.6MG TAB PO SCH (08:09)
--- NOTE | 2019-05-14 10:56 | Hospitalist Progress Note ---
Date of Service May 14, 2019 Subjective May 14, 2019 10:50 ATTENDING NOTE: pt sustained a fall jul 2018 leading to intracranial hge high risk for bleeding complication with anticoagulation -Coumadin or NOAC's ( eliquis /pradaxa etc ) Neurology recommends EVE /for evaluation of cardiac thrombus : TTE not ordered as EVE ( transesophageal echo ) to asses left atrial appendage thrombus or left vetricular thombus is not indicated it will not provide any benefit as -pt can not be treated with anticoagulation Pt will be treated with 3 weeks of dual antiplatelets Plavix /Aspirin for 3 weeks then continued with 81 mg PO Aspirin life long Irene Jerry MD Results & Data Vital Signs (Past 12 Hours) Vital Signs Temp Pulse Pulse Resp BP Pulse Ox 05/14/19 08:00 36.8 C 61 20 144/86 H 95 05/14/19 07:00 60 05/14/19 03:40 63 05/14/19 02:49 36.7 C 68 19 125/73 96 05/13/19 23:04 36.4 C L 60 19 121/76 97
[2019-05-14 11:24] LABS: Hematocrit (blood only) 40.8 % (37-47); Hemoglobin 13.9 g/dL (12.0-16.0); Mean Corpuscular Hemoglobin 32.8 pg (25-34); Mean Corpuscular Hgb Conc 34.1 g/dL (32-36); Mean Corpuscular Volume 96.2 fL (80-100); Mean Platelet Volume 10.5 fL (7.4-10.4); Platelet Count 158 K/uL (130-400); RDW Coefficient of Variation 13.1 % (11.5-14.5); RDW Standard Deviation 46.1 fL (36.4-46.3); Red Blood Count 4.24 M/uL (4.2-5.4); White Blood Count 6.46 K/uL (4.8-10.8)
[2019-05-14 12:02] LABS: BUN Creatinine Ratio 28.5 (10-20); Calcium 9.3 mg/dl (8.5-10.1); Creatinine Clr Calc Pharmacy 54.3 ml/min; Est GFR (African American) 84.7; Est GFR (Non-African American) 73.1; Potassium 3.8 mmol/L (3.5-5.1)
--- NOTE | 2019-05-14 13:52 | Hospitalist Progress Note ---
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 code stroke alert was called , pt was evaluated by [facility] Neuro medicine at present , speech is fluent , conversing appropriately no weakness or paresthesia --CT head: No acute process --MRI brain contraindicated in light of pacemaker device --Evaluated by neurologist Dr. Montilla-appreciate input Neurology recommends EVE /for evaluation of cardiac thrombus : TTE not ordered as EVE ( transesophageal echo ) to asses left atrial appendage thrombus or left ventricular Thrombus - will not provide any benefit as -pt can not be treated with anticoagulation Recommendation: aspirin 81 mg on daily basis, add Plavix 75 mg daily x 3 weeks then stop the Plavix, aspirin for a lifetime --PT OT evaluation-appreciated , recommends rehab HTN --Continue metoprolol, losartan Acute on chronic hyponatremia --Baseline sodium 131-136 --Monitor sodium level Hypothyroidism, euthyroid as of recent TSH DVT prophylaxis. SCDs RE history traumatic ICH Full code as per daughter, Ms. Erika Ramsey. She requests updates from providers, [phone]. Disposition PT and OT evaluation recommends rehab referral made to [facility] to rehab possible tomorrow if insurance auth available Subjective May 14, 2019 10:50 pt offers no new complain awake and alert ,speech is fluent no pain or discomfort inquiring about when she can be discharged -ok to go to rehab but wants to go to home ist to get a shower /updated that she can have a shower while in hospital pt will need acute rehab , referral made already insurance auth pending ordered that pt May take a shower will need assistance Physical Exam Constitutional: WD/WN, vitals as above + thin; no acute distress Eyes: PERRL, conjunctivae normal, anicteric sclerae ENMT: external ear and nose normal, oropharynx normal Neck: trachea midline, no thyromegaly Respiratory: normal respiratory effort, lungs clear to auscultation Cardiovascular: RRR, no murmur, no edema Gastrointestinal (Abdomen): Inspection/Auscultation: normal bowel sounds Percussion/Palpation: abdomen soft; abdomen nontender Skin: no rashes, warm and dry Neurologic: PERRL, EOMI, accommodation nl, no face palsy, no dysarthria Psychiatric: A+Ox3, euthymic affect Results & Data Vital Signs (Past 12 Hours) Vital Signs Temp Pulse Pulse Resp BP Pulse Ox 05/14/19 11:26 36.8 C 64 20 129/73 94 05/14/19 08:00 36.8 C 61 20 144/86 H 95 05/14/19 07:00 60 05/14/19 03:40 63 05/14/19 02:49 36.7 C 68 19 125/73 96
[2019-05-15] MEDS: LEVOTHYROXINE SODIUM 100 MCG TABLET PO SCH (05:58)
[2019-05-15 07:52] LABS: BUN Creatinine Ratio 24.5 (10-20); Calcium 9.2 mg/dl (8.5-10.1); Creatinine Clr Calc Pharmacy 46.4 ml/min; Est GFR (Non-African American) 60.4; Potassium 4.3 mmol/L (3.5-5.1)
[2019-05-15] MEDS: METOPROLOL SUCC 25MG EXT REL TAB PO SCH (08:18)
[2019-05-15] MEDS: DOCUSATE SODIUM/SENNA 50/8.6MG TAB PO SCH (08:18)
[2019-05-15] MEDS: ASPIRIN 81 MG ECTAB PO SCH (08:18)
[2019-05-15] MEDS: ATORVASTATIN 40 MG TAB PO SCH (08:19)
[2019-05-15] MEDS: CLOPIDOGREL BISULFATE 75 MG TAB PO SCH (08:19)
--- NOTE | 2019-05-15 16:48 | Hospitalist Progress Note ---
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 code stroke alert was called , pt was evaluated by [facility] Neuro medicine at present , speech is fluent , conversing appropriately no weakness or paresthesia --CT head: No acute process --MRI brain contraindicated in light of pacemaker device --Evaluated by neurologist Dr. Montilla-appreciate input Neurology recommends EVE /for evaluation of cardiac thrombus : TTE not ordered as EVE ( transesophageal echo ) to asses left atrial appendage thrombus or left ventricular Thrombus - will not provide any benefit as -pt can not be treated with anticoagulation Recommendation: aspirin 81 mg on daily basis, add Plavix 75 mg daily x 3 weeks then stop the Plavix, aspirin for a lifetime --PT OT evaluation-appreciated , recommends rehab HTN --Continue metoprolol, losartan Acute on chronic hyponatremia --Baseline sodium 131-136 --Na 132 at baseline today Hypothyroidism, euthyroid as of recent TSH DVT prophylaxis. SCDs RE history traumatic ICH Disposition PT and OT evaluation recommends rehab referral made to [facility] possible transfer tomorrow if bed available daughter will provide transport Subjective May 14, 2019 10:50 no new complain waiting to for the rehab accepted at [facility] for SNF does not have any bed today , possible transfer tomorrow no complain of cough no fever or chills speech is fluent no weakness or paresthesia Physical Exam Constitutional: WD/WN, vitals as above + thin; no acute distress Eyes: PERRL, conjunctivae normal, anicteric sclerae ENMT: external ear and nose normal, oropharynx normal Neck: trachea midline, no thyromegaly Respiratory: normal respiratory effort, lungs clear to auscultation Cardiovascular: RRR, no murmur, no edema Gastrointestinal (Abdomen): Inspection/Auscultation: normal bowel sounds Percussion/Palpation: abdomen soft; abdomen nontender Skin: no rashes, warm and dry Neurologic: PERRL, EOMI, accommodation nl, no face palsy, no dysarthria Psychiatric: A+Ox3, euthymic affect Results & Data Vital Signs (Past 12 Hours) Vital Signs Temp Pulse Resp BP Pulse Ox 05/15/19 16:09 37.0 C 65 18 117/68 95 05/15/19 14:58 36.6 C 80 20 126/83 95 05/15/19 07:20 36.5 C 112 H 20 153/92 H 95
[2019-05-16] MEDS: LEVOTHYROXINE SODIUM 100 MCG TABLET PO SCH (05:56)
--- NOTE | 2019-05-16 08:26 | Discharge Summary ---
Date of Service May 16, 2019 Admission HPI Per Admitting Provider History obtained from patient, family, and records. History somewhat limited from patient secondary to aphasia. Medical history significant for sick sinus syndrome status post PPM off Coumadin secondary to traumatic intracranial hemorrhage, hypertension, hypothyroidism, chronic hyponatremia, osteoarthritis, skin cancer as per records. Recent confinement [facility] July 2018 for traumatic cortical hemorrhage left frontoparietal region secondary to mechanical fall. Patient transferred to [facility]. No neurosurgical intervention as per records. Patient Coumadin for A. fib stopped on discharge. Around 5 PM today patient noted by to have difficulty getting the words out. Transient headache symptoms. BSG at home noted to be 113. Upon arrival at the ER, aphasia improving as per EMS. 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, lives with Principal Diagnosis TIA/PAROXSYSMAL AFIB Discharge Exam Constitutional WD/WN, vitals as above Eyes PERRL, conjunctivae normal, anicteric sclerae ENMT external ear and nose normal, oropharynx normal Neck trachea midline, no thyromegaly Respiratory normal respiratory effort, lungs clear to auscultation Cardiovascular RRR, no murmur, no edema Gastrointestinal (Abdomen) normal bowel sounds, soft, nontender, no hepatosplenomegaly Neurologic PERRL, EOMI, accommodation nl, no face palsy, no dysarthria Psychiatric A+Ox3, euthymic affect Discharge Data Allergies Allergy/AdvReac Type Severity Reaction Status Date / Time latex Allergy Unknown skin Verified 05/11/19 22:24 irritation lisinopril Allergy Unknown COUGH Verified 05/11/19 22:24 mirtazapine Allergy Rash Verified 05/11/19 22:25 Consultations 05/11/19 22:25 ED Decision to Admit Stat 05/11/19 23:51 Consult Case Management - Discharge Planning Routine Consult Case Management - Discharge Planning Routine Consult Neurology Routine Ordered Studies 05/11/19 20:48 CT head/brain wo con Stat 05/11/19 20:50 CT angio neck with con Stat 05/11/19 20:51 CT angio head w con Stat 05/12/19 17:00 CT head/brain wo con Routine Hospital Course (1) TIA (transient ischemic attack): 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 code stroke alert was called , pt was evaluated by [facility] Neuro medicine at present , speech is fluent , conversing appropriately no weakness or paresthesia --CT head: No acute process --MRI brain contraindicated in light of pacemaker device --Evaluated by neurologist Dr. Montilla-appreciate input Neurology recommends EVE /for evaluation of cardiac thrombus : TTE not ordered as EVE ( transesophageal echo ) to asses left atrial appendage thrombus or left ventricular Thrombus - will not provide any benefit as -pt can not be treated with anticoagulation Recommendation: aspirin 81 mg on daily basis, add Plavix 75 mg daily x 3 weeks then stop the Plavix, aspirin for a lifetime --PT OT evaluation-appreciated , recommends rehab HTN --Continue metoprolol, losartan Acute on chronic hyponatremia --Baseline sodium 131-136 --Na 132 at baseline Hypothyroidism, euthyroid as of recent TSH DVT prophylaxis. SCDs RE history traumatic ICH Disposition PT and OT evaluation recommends rehab referral made to [facility] transfer to SNF today daughter will provide transport Total Time Total Time Spent Total Time Spent (In Minutes): APPROX 40 MINS Total Time Includes: Examination of the Patient, Discharge Planning and Medication Reconciliation Discharge Plan Discharge Items Patient Disposition: Transfer Alf Fac Reason For Visit: HYPONATREMIA, TIA Discharge Diagnosis: TIA /PAROXSYSMAL AFIB Activity: As commented below Activity Comment: CONTINUE PT/OT AT REHAB Non-emergency contact: Primary Care Provider Call non-emergency contact if: you have any medication questions Follow-up/Referrals: Dee Rivera MD [Primary Care Provider] - Diet: Heart Healthy Addtl Attending Provider Instructions: TAKE ASPIRIN 81 MG DAILY AND PLAVIX 75 MG DAILY ( IN FULL STOMACH ) FOR 3 WEEKS THEN CONTINUE WITH ASPIRIN 81 MG DAILY FOR LIFE LONG Pending Studies at Discharge: No Stand-Alone Forms: My [facility] Skilled Items Patient informed of condition?: Yes DNR: No Discharge Level of Care: Acute rehab Communicable Disease: No Discharge Prognosis: Stable Lines: None Urinary Catheter: No Medications and DC Order Prescriptions: New clopidogrel 75 mg Tablet 75 mg PO QAM 21 Days Qty: 21 RF: 0 Continued losartan [Cozaar] 50 mg tablet 50 mg PO HS RF: 0 sennosides-docusate sodium [Senna Plus] 8.6-50 mg tablet 1 tab PO DAILY RF: 0 aspirin [Aspir-81] 81 mg Tablet,Delayed Release (Dr/Ec) 81 mg PO DAILY RF: 0 triamcinolone acetonide 0.1 % cream 1 applic TOPICAL UD RF: 0 levothyroxine 100 mcg tablet 100 mcg PO DAILY RF: 0 magnesium oxide [MagOx] 400 mg (241.3 mg magnesium) tablet 400 mg PO DAILY RF: 0 mirtazapine [Remeron] 15 mg tablet 15 mg PO HS RF: 0 metoprolol succinate [Toprol XL] 25 mg tablet extended release 24 hr 25 mg PO DAILY RF: 0 hydroxyzine HCl 10 mg tablet 10 mg PO TID PRN (Reason: anxiety/itching) RF: 0 calcium carbonate-vitamin D3 [Calcium 500 + D] 500 mg(1,250mg) -200 unit Tablet 1 tab PO BID RF: 0 acetaminophen [Tylenol] 325 mg Capsule 650 mg PO QID PRN (Reason: Pain) RF: 0 Discharge Orders: Discharge Order (Routine); Ordered 05/16/19 Ordered By: Irene Jerry Admission Data Admit Date/Time: 05/11/19 22:35 Attending Provider: Irene Jerry Admit Provider: Liam Pepper Primary Care Provider: Dee Rivera Other Providers: [facility] ; [place] ; [facility] ; [place] ; Liam Pepper ; Shravan Montilla Other Interventions: Discharge Summary Assessment (RN) Last Done: 05/16/19 10:24 DC Date/Time DO NOT enter until pt leaves facility: 05/16/19 12:16
[2019-05-16] MEDS: CLOPIDOGREL BISULFATE 75 MG TAB PO SCH (08:52)
[2019-05-16] MEDS: METOPROLOL SUCC 25MG EXT REL TAB PO SCH (08:52)
[2019-05-16] MEDS: ASPIRIN 81 MG ECTAB PO SCH (08:53)
[2019-05-16] MEDS: ATORVASTATIN 40 MG TAB PO SCH (08:53)
[2019-05-16] MEDS: DOCUSATE SODIUM/SENNA 50/8.6MG TAB PO SCH (08:53)
--- NOTE | 2019-05-23 13:13 | Coding Query ---
CODING QUERY To promote full compliance with coding requirements relating to patient care, provider participation is requested in all cases of buffer machine uncertainty. Please assist us with the question(s) below: Coding Question(s): Patient with history of atrial fibrillation and cerebral hemorrhage months prior to admission admitted with aphasia. Progress notes mention TIA. 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 Please document, if known or suspected the Final diagnosis, after study , which is responsible for this Inpatient stay. Thank you. 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 , caused by embolic phenomenon -no acute CVA noted in brain CT scan MRI could not be done due to pacemaker tx Irene Jerry Principal Diagnosis: "that condition established after study, to be chiefly responsible for occasioning the admission of the patient to the hospital for care." Co-Existing Principal Diagnosis: "when two or more diagnoses equally meet the criteria for principal diagnosis as determined by the circumstances of admission, diagnostic work up, and/or therapy provided, and the Alphabetic Index, Tabular List, or another coding guideline does not provide sequencing direction, any one of the diagnoses may be sequenced first." "When the physician has documented what appears to be a current diagnosis in the body of the record, but has not included the diagnosis in the final diagnostic statement, the physician should be asked whether the diagnosis should be added." (Source Coding [facility] 2 QTR90. p3-4) DIDIER
== END 2019-05-16 12:16 | DRG 69 ==
LOC: ED 20:51 → SUATTDRO 22:35 → 2N 22:35

== ENCOUNTER 2019-12-08 19:56 | Inpatient (IN) ==
--- OUTSIDE RECORDS SUMMARY | 2019-12-08 19:58 | External Medical Summary | Continuity of Care Document ---
:1935 Author Name Guerrero Nelson, Provider Address Unavailable Unavailable , Care Team Providers Name Role Phone Miki Johnson [email or web address] GARCIA Unavailable Unavailable Problems Active medical history not documented Allergies and Adverse Reactions Allergy history not documented Medications Medications not documented Procedures Procedures not documented Immunizations Immunizations not documented Plan of Treatment Planned Observations Planned Goals not documented Results No Known Results Results not documented
[2019-12-08] MEDS ORDERED: SODIUM CHLORIDE 0.9% 1000ML 1,000 ML IV SCH (20:00)
[2019-12-08] MEDS ORDERED: OPTIRAY 320 125ml IV PRN (20:08)
--- NOTE | 2019-12-08 20:08 | Emergency Department Note ---
Impression & Plan AMS (altered mental status), HTN (hypertension), Atrial fibrillation with RVR ED Provider Note NAME: NANCY SCHMIDT AGE: 84 SEX: F : 1935 ARRIVES VIA: Ambulance INFORMANT: EMS ED PROVIDER(S): Scott Zamarripa DO CHIEF COMPLAINT: Altered mental status HPI: Patient is an 84-year-old female who presents the ER via EMS for altered mental status. She was last seen per report from EMS prior to sunrise this morning. They note that she is normally awake alert talking and interacting appropriately. Per reports she is a DNR/DNI. EMS notes that she had a leftward gaze with no grasp of the right upper extremity. Patient is able to state no and declines any complaints. History clearly limited secondary to mentation. Later discussed with daughter who arrived and notes that last known well was this morning and patient was seen by patient's . She notes that she is normally awake alert oriented and interacting appropriately. ROS: Unable to obtain secondary to mentation PAST MEDICAL HISTORY:See Below PAST SURGICAL HISTORY:See Below FAMILY HISTORY:See Below SOCIAL HISTORY:See Below HOME MEDICATIONS:See Below ALLERGIES:See Below VITALS:See Below PHYSICAL EXAMINATION: GENERAL: Laying in bed, ill-appearing, moaning intermittently stating no to questions EYE EXAM: normal conjunctiva. With a leftward gaze OROPHARYNX: mucous membranes are dry NECK: supple, no nuchal rigidity, no adenopathy, non-tender LUNGS: Clear to auscultation. Normal chest wall mechanics HEART: Tachycardic and irregularly irregular, S1 normal and S2 normal ABDOMEN: abdomen soft, non-tender, normo-active bowel sounds, no masses, no rebound or guarding. BACK: Back is symmetrical on inspection and there is no deformity, no midline tenderness, no CVA tenderness. SKIN: no rashes and no bruising UPPER EXTREMITIES: upper extremities are grossly normal. LOWER EXTREMITIES: No pitting edema. NEURO EXAM: Awake not oriented to person, place or name, intermittently states no to questions, grasp as well as flexion extension in the upper extremities, tongue is midline, no facial droop, flexion/extension of the hips and plantar and dorsiflexion of the feet intact bilaterally MEDICAL DECISION MAKING: Patient is an 84-year-old female who presents the ER via EMS for altered mental status. There is no focal findings on exam although difficult due to mentation. She does have a leftward gaze but will come back to midline. CT and CTAs of the head and neck show no culprit lesion although there was some stenosis. She was fairly hypertensive. She was also in A. fib with RVR. Labs show no significant leukocytosis or anemia. INR was unremarkable. BMP with mild hypokalemia. Bilirubin slightly elevated at 1.2. LFTs were unremarkable. Troponin was negative. She had benign abdominal exam. UA was clean. Chest x- ray was unremarkable. Daughter was updated at bedside. Patient remained on a Cardizem drip and was admitted to the hospital for further work-up. Heart rate did trend down to the 70s to 80s after Cardizem bolus and drip. She has no large vessel occlusion which would need intervention or TPA at this time especially with an unknown downtime/last known well and consequently TPA was not given. Triage Nursing notes reviewed. Prior medical records reviewed Vital Signs: reviewed and remarkable for HTN Differential diagnosis: Differential diagnoses includes but is not limited to toxic, metabolic, infectious, traumatic, cardiac, neurologic, hematologic, psychiatric and inflammatory etiologies. ER treatment provided: See below Diagnostics interpreted by me: ECG: A. fib RVR rate of 122 Left axis No PVCs Nonspecific ST wave changes in the high lateral leads Nonspecific ST wave changes in the lateral leads Prolonged QTC Cardiac Monitoring: An order was placed for continuous cardiac monitoring. The monitor shows a rate of 136 with A. fib RVR rhythm. Laboratory studies: As stated above and show below. Imaging studies: CT as well as CTA of the head and neck show no culprit lesions Consultation(s): Discussed with hospitalist for admission ED COURSE: Procedures: none Critical Care: I have personally spent 31 minutes of critical care time in the direct management of this patient. This includes bedside care, interpretation of diagnostic studies, and testing, discussion with consultants, patient, and family members, and other required patient management activities. This 31 minutes is in excess of all separately billable procedures. Past Med/Surg History Social History Preferred Language: Latvian Communication Ability: Effective Telecommunicator Required: No Beliefs That Will Affect Care: None marital status: Current Living Situation: Alone current occupational status: retired Feels Safe at Home: Yes Smoking Status: Unknown if ever smoked Hx Alcohol Use: No Hx Substance Use: No Allergies Allergies Allergy/AdvReac Type Severity Reaction Status Date / Time latex Allergy Unknown skin Verified 12/08/19 21:11 irritation lisinopril Allergy Unknown COUGH Verified 12/08/19 21:11 mirtazapine Allergy Rash Verified 12/08/19 21:11 Home Meds Home Medications Medication Instructions Recorded Confirmed acetaminophen [Tylenol] 650 mg PO QID PRN 05/11/19 12/08/19 aspirin [Aspir-81] 81 mg PO DAILY 05/11/19 12/08/19 calcium carbonate-vitamin D3 1 tab PO BID 05/11/19 12/08/19 [Calcium 500 + D] hydroxyzine HCl 10 mg PO TID PRN 05/11/19 12/08/19 levothyroxine 100 mcg PO DAILY 05/11/19 12/08/19 losartan [Cozaar] 25 mg PO HS 05/11/19 12/08/19 magnesium oxide [MagOx] 400 mg PO DAILY 05/11/19 12/08/19 mirtazapine [Remeron] 15 mg PO HS 05/11/19 12/08/19 sennosides-docusate sodium [Senna 1 tab PO DAILY 05/11/19 12/08/19 Plus] triamcinolone acetonide 1 applic TOPICAL UD 05/11/19 12/08/19 metoprolol succinate 75 mg PO DAILY 12/08/19 12/08/19 Results & Data (ED) Vital Signs Vital Signs - 24 hr 12/08/19 20:05 12/08/19 20:56 12/08/19 21:07 Temperature 36.9 C Temperature Source Oral Pulse Rate 136 H Pulse Rate [Right] 108 H 72 Pulse Rhythm Irregular Pulse Rhythm [Right] Irregular Irregular Pulse Strength Strong Pulse Strength [Right] Strong Strong Respiratory Rate 20 18 16 Respiratory Effort / Characteristics Non-Labored Spontaneous Non-Labored Spontaneous Non-Labored Spontaneous Respiratory Depth Normal Normal Normal Blood Pressure 172/126 H Blood Pressure [Right Arm] 164/119 H 184/93 H Blood Pressure Mean 141 Blood Pressure Mean [Right Arm] 134 123 Blood Pressure Position Lying Blood Pressure Position [Right Arm] Lying Pulse Oximetry 94 94 94 Oxygen Delivery Method Room Air Room Air Room Air Sepsis Recent Fever Within 48 Hours No Sepsis New/Unexplained Change in Mental Status No Sepsis Action Taken by Nursing No Action Required 12/08/19 21:36 Temperature Temperature Source Pulse Rate Pulse Rate [Right] 77 Pulse Rhythm Pulse Rhythm [Right] Irregular Pulse Strength Pulse Strength [Right] Respiratory Rate 16 Respiratory Effort / Characteristics Non-Labored Spontaneous Respiratory Depth Normal Blood Pressure Blood Pressure [Right Arm] 160/75 H Blood Pressure Mean Blood Pressure Mean [Right Arm] 103 Blood Pressure Position Blood Pressure Position [Right Arm] Lying Pulse Oximetry 94 Oxygen Delivery Method Room Air Sepsis Recent Fever Within 48 Hours Sepsis New/Unexplained Change in Mental Status Sepsis Action Taken by Nursing Laboratory Data Result diagrams: 12/08/19 19:45 12/08/19 19:45 Lab Results 12/08/19 12/08/19 12/08/19 Range/Units 19:45 19:45 19:45 WBC 10.23 (4.8-10.8) K/uL RBC 4.84 (4.2-5.4) M/uL Hgb 15.1 (12.0-16.0) g/dL Hct 46.1 (37-47) % MCV 95.2 (80-100) fL MCH 31.2 (25-34) pg MCHC 32.8 (32-36) g/dL RDW Std Deviation 50.1 H (36.4-46.3) fL RDW Coeff of Del 14.4 (11.5-14.5) % Plt Count 171 (130-400) K/uL MPV 11.4 H (7.4-10.4) fL Immature Gran % (Auto) 0.1 % Neut % (Auto) 76.8 % Lymph % (Auto) 16.8 % Cobb % (Auto) 5.8 % Eos % (Auto) 0.3 % Baso % (Auto) 0.2 % Neut # (Auto) 7.86 H (1.4-6.5) K/uL Lymph # (Auto) 1.72 (1.2-3.4) K/uL Cobb # (Auto) 0.59 (0.11-0.59) K/uL Eos # (Auto) 0.03 (0-0.5) K/uL Baso # (Auto) 0.02 (0-0.2) K/uL Immature Gran # (Auto) 0.01 (0.00-0.02) K/uL PT 11.5 (9.0-12.0) Seconds INR 1.1 (0.9-1.1) APTT 26.3 (21.0-31.0) Seconds PTT Ratio 0.9 Sodium 133 L (136-145) mmol/L Potassium 4.3 (3.5-5.1) mmol/L Chloride 98 (98-107) mmol/L Carbon Dioxide 29 (21-32) mmol/L Anion Gap 6.0 (3-11) BUN 12 (7-18) mg/dl Creatinine 0.74 (0.6-1.2) mg/dl Est Cr Clr Drug Dosing 49.7 ml/min Est GFR ( Amer) 86.8 Est GFR (Non-Af Amer) 74.9 BUN/Creatinine Ratio 16.2 (10-20) Glucose 130 H (70-99) mg/dl Calcium 9.1 (8.5-10.1) mg/dl Magnesium 1.8 (1.8-2.4) mg/dl Total Bilirubin 1.2 H (0.2-1) mg/dl AST 45 H (15-37) U/L ALT 47 (12-78) U/L Alkaline Phosphatase 115 (45-117) U/L Troponin I < 0.015 (0-0.045) ng/ml Total Protein 7.4 (6.4-8.2) gm/dl Albumin 3.7 (3.4-5.0) gm/dl Globulin 3.7 (2.5-4.0) gm/dl Albumin/Globulin Ratio 1.0 (0.9-2) Urine Color Urine Appearance (Clear) Urine pH (4.5-7.5) Ur Specific [place] (1.000-1.030) Urine Protein (Negative) Urine Glucose (UA) (Negative) Urine Ketones (Negative) Urine Blood (Negative) Urine Nitrite (Negative) Urine Bilirubin (Negative) Urine Urobilinogen (Negative) Ur Leukocyte Esterase (Negative) Blood Type Antibody Screen 12/08/19 12/08/19 Range/Units 20:21 20:30 WBC (4.8-10.8) K/uL RBC (4.2-5.4) M/uL Hgb (12.0-16.0) g/dL Hct (37-47) % MCV (80-100) fL MCH (25-34) pg MCHC (32-36) g/dL RDW Std Deviation (36.4-46.3) fL RDW Coeff of Del (11.5-14.5) % Plt Count (130-400) K/uL MPV (7.4-10.4) fL Immature Gran % (Auto) % Neut % (Auto) % Lymph % (Auto) % Cobb % (Auto) % Eos % (Auto) % Baso % (Auto) % Neut # (Auto) (1.4-6.5) K/uL Lymph # (Auto) (1.2-3.4) K/uL Cobb # (Auto) (0.11-0.59) K/uL Eos # (Auto) (0-0.5) K/uL Baso # (Auto) (0-0.2) K/uL Immature Gran # (Auto) (0.00-0.02) K/uL PT (9.0-12.0) Seconds INR (0.9-1.1) APTT (21.0-31.0) Seconds PTT Ratio Sodium (136-145) mmol/L Potassium (3.5-5.1) mmol/L Chloride (98-107) mmol/L Carbon Dioxide (21-32) mmol/L Anion Gap (3-11) BUN (7-18) mg/dl Creatinine (0.6-1.2) mg/dl Est Cr Clr Drug Dosing ml/min Est GFR ( Amer) Est GFR (Non-Af Amer) BUN/Creatinine Ratio (10-20) Glucose (70-99) mg/dl Calcium (8.5-10.1) mg/dl Magnesium (1.8-2.4) mg/dl Total Bilirubin (0.2-1) mg/dl AST (15-37) U/L ALT (12-78) U/L Alkaline Phosphatase (45-117) U/L Troponin I (0-0.045) ng/ml Total Protein (6.4-8.2) gm/dl Albumin (3.4-5.0) gm/dl Globulin (2.5-4.0) gm/dl Albumin/Globulin Ratio (0.9-2) Urine Color Yellow Urine Appearance Clear (Clear) Urine pH 8.0 H (4.5-7.5) Ur Specific [place] 1.027 (1.000-1.030) Urine Protein Negative (Negative) Urine Glucose (UA) Negative (Negative) Urine Ketones Trace H (Negative) Urine Blood Negative (Negative) Urine Nitrite Negative (Negative) Urine Bilirubin Negative (Negative) Urine Urobilinogen Negative (Negative) Ur Leukocyte Esterase Negative (Negative) Blood Type Cancelled Antibody Screen Cancelled Administered Medications Sodium Chloride (Nss 1000ml) 1,000 mls @ 50 mls/hr IV .Q20H DONNA Stop: 01/07/20 19:59 Last Admin: 12/08/19 20:51 Dose: 50 mls/hr Documented by: [id number] Diltiazem HCl 125 mg/ Dextrose 125 mls @ 5 mls/hr IV .Q24H DONNA; Protocol Stop: 01/07/20 20:29 Last Titration: 12/08/19 21:07 Dose: 2.5 mg/hr, 2.5 mls/hr Documented by: [id number] Cosigned by: [id number] Admin: 12/08/19 20:51 Dose: 5 mg/hr, 5 mls/hr Documented by: [id number] Cosigned by: [id number] Ioversol (Optiray 320 125ml) 115 ml IV ONCE PRN PRN Reason: Interaction Checking Stop: 12/12/19 20:07 Last Admin: 12/08/19 20:08 Dose: 115 ml Documented by: [id number] Discontinued Medications Diltiazem HCl (Cardizem) 5 mg IV NOW STA Stop: 12/08/19 20:25 Last Admin: 12/08/19 20:51 Dose: 5 mg Documented by: [id number] Cosigned by: [id number] Miscellaneous () 1 ea N/A NOW STA Stop: 12/08/19 20:25 Last Admin: 12/08/19 20:51 Dose: 1 ea Documented by: [id number] Discharge Plan Visit Data Chief Complaint: Stroke/CVA Symptoms Stated Complaint: stroke ED Provider: Scott Zamarripa Discharge Problem: AMS (altered mental status), HTN (hypertension), Atrial fibrillation with RVR Forms Stand Alone Forms: My [facility] [place] Prescriptions Prescriptions: No Action losartan [Cozaar] 50 mg tablet 25 mg PO HS RF: 0 sennosides-docusate sodium [Senna Plus] 8.6-50 mg tablet 1 tab PO DAILY RF: 0 aspirin [Aspir-81] 81 mg Tablet,Delayed Release (Dr/Ec) 81 mg PO DAILY RF: 0 triamcinolone acetonide 0.1 % cream 1 applic TOPICAL UD RF: 0 levothyroxine 100 mcg tablet 100 mcg PO DAILY RF: 0 magnesium oxide [MagOx] 400 mg (241.3 mg magnesium) tablet 400 mg PO DAILY RF: 0 mirtazapine [Remeron] 15 mg tablet 15 mg PO HS RF: 0 hydroxyzine HCl 10 mg tablet 10 mg PO TID PRN (Reason: anxiety/itching) RF: 0 calcium carbonate-vitamin D3 [Calcium 500 + D] 500 mg(1,250mg) -200 unit Tablet 1 tab PO BID RF: 0 acetaminophen [Tylenol] 325 mg Capsule 650 mg PO QID PRN (Reason: Pain) RF: 0 metoprolol succinate 50 mg tablet extended release 24 hr 75 mg PO DAILY RF: 0 Discharge Problem: AMS (altered mental status) Qualifiers: Altered mental status type: unspecified Qualified Code(s): R41.82 - Altered mental status, unspecified HTN (hypertension) Qualifiers: Hypertension type: unspecified Qualified Code(s): I10 - Essential (primary) hypertension
[2019-12-08 20:11] LABS: Basophils # (auto) 0.02 K/uL (0-0.2); Basophils % (auto) 0.2 %; Eosinophils # (auto) 0.03 K/uL (0-0.5); Eosinophils % (auto) 0.3 %; Hematocrit (blood only) 46.1 % (37-47); Hemoglobin 15.1 g/dL (12.0-16.0); Immature Granulocytes # (auto) 0.01 K/uL (0.00-0.02); Immature Granulocytes % (auto) 0.1 %; Lymphocytes # (auto) 1.72 K/uL (1.2-3.4); Lymphocytes % (auto) 16.8 %; Mean Corpuscular Hemoglobin 31.2 pg (25-34); Mean Corpuscular Hgb Conc 32.8 g/dL (32-36); Mean Corpuscular Volume 95.2 fL (80-100); Mean Platelet Volume 11.4 fL (7.4-10.4); Monocytes # (auto) 0.59 K/uL (0.11-0.59); Monocytes % (auto) 5.8 %; Neutrophils # (auto) 7.86 K/uL (1.4-6.5); Neutrophils % (auto) 76.8 %; Platelet Count 171 K/uL (130-400); RDW Coefficient of Variation 14.4 % (11.5-14.5); RDW Standard Deviation 50.1 fL (36.4-46.3); Red Blood Count 4.84 M/uL (4.2-5.4); White Blood Count 10.23 K/uL (4.8-10.8)
[2019-12-08 20:22] LABS: INR 1.1 (0.9-1.1); Partial Thromboplastin Ratio 0.9; Partial Thromboplastin Time 26.3 Seconds (21.0-31.0); Prothrombin Time 11.5 Seconds (9.0-12.0)
[2019-12-08] MEDS ORDERED: dilTIAZem HCl 5 MG/ML 5 ML VIAL IV STA (20:24)
[2019-12-08] MEDS ORDERED: STAT IV Infusion **Titration per Protocol STA (20:24)
--- NOTE | 2019-12-08 20:24 | CT Scan Report ---
CT head/brain wo con CT DOSE: HISTORY: Mental status change Stroke evaluation TECHNIQUE: Multiaxial CT images of the head were performed without the use of intravenous contrast. A dose lowering technique was utilized adhering to the principles of ALARA. Comparison: None. Findings: The paranasal sinuses and mastoid air cells are clear. The calvarium and skull base are int act. The ventricles and sulci are within normal limits. There is no mass, hematoma, midline shift, or acute infarct. Age-related atrophy and chronic small vessel change. 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 Impression: No acute intracranial abnormality. Chronic and age-related change. ACT 112: Negative or not required by law. The above report was generated using voice recognition software. It may contain grammatical, syntax or spelling errors. Electronically signed by: Michael Guan M.D. 12/08/2019 8:23 PM
[2019-12-08 20:28] LABS: Alanine Aminotransferase 47 U/L (12-78); Albumin Level 3.7 gm/dl (3.4-5.0); Aspartate Aminotransferase 45 U/L (15-37); BUN Creatinine Ratio 16.2 (10-20); Blood Urea Nitrogen 12 mg/dl (7-18); Calcium 9.1 mg/dl (8.5-10.1); Carbon Dioxide 29 mmol/L (21-32); Chloride 98 mmol/L (98-107); Creatinine Clr Calc Pharmacy 49.7 ml/min; Est GFR (African American) 86.8; Est GFR (Non-African American) 74.9; Glucose 130 mg/dl (70-99); Magnesium 1.8 mg/dl (1.8-2.4); Potassium 4.3 mmol/L (3.5-5.1); Sodium 133 mmol/L (136-145)
--- NOTE | 2019-12-08 20:29 | CT Scan Report ---
CT angio neck with con HISTORY: Mental status change Stroke evaluation TECHNIQUE: Multiaxial CT angiography of the neck was performed IV contrast: 120 cc nonionic All mandeep urements were calculated based on NASCET criteria. Maximum intensity projection images were also obt ained. A dose lowering technique was utilized adhering to the principles of ALARA. COMPARISON STUDY: None. FINDINGS: The aortic arch and proximal great vessels are widely patent. Considerable plaque formatio n at the carotid bifurcations. 30-40% narrowing of the proximal internal carotid arteries bilaterally . No high-grade stenosis of the carotid systems. Dominant left vertebral artery with no significant stenosis. 50% narrowing of the mid and distal righ t vertebral artery. No evidence for a critical stenotic process. IMPRESSION: 1. Considerable plaque formation bilaterally. 2. 30-40% narrowing of the carotid bifurcations and proximal internal carotid arteries bilaterally. 3. 50% narrowing of the mid and distal right vertebral artery with no evidence for a high-grade steno tic process of the vertebral basilar system. ACT 112: Negative or not required by law. The above report was generated using voice recognition software. It may contain grammatical, syntax or spelling errors. Electronically signed by: Michael Guan M.D. 12/08/2019 8:27 PM
[2019-12-08] MEDS ORDERED: dilTIAZem HCL 125 MG in DEXTROSE 5% 100 ML IV SCH (20:30)
[2019-12-08 20:33] LABS: Alkaline Phosphatase 115 U/L (45-117); Bilirubin,Total 1.2 mg/dl (0.2-1); Globulin 3.7 gm/dl (2.5-4.0); Total Protein 7.4 gm/dl (6.4-8.2); Troponin I < 0.015 ng/ml (0-0.045)
--- NOTE | 2019-12-08 20:34 | CT Scan Report ---
CT angio head w con HISTORY: Mental status change Stroke evaluation TECHNIQUE: Multiaxial CT angiography of the head was performed IV contrast: 1 20 cc nonionic Maxim um intensity projection images were also obtained. A dose lowering technique was utilized adhering t o the principles of ALARA. COMPARISON: None. FINDINGS: There is no mass, hematoma, midline shift, or acute infarct. Visualized intracranial network internship al carotid arteries, distal vertebral arteries, and basilar artery are widely patent. There is no sig nificant stenosis, occlusion, or aneurysm seen within the bilateral ACAs, MCAs, or fibre composite technician. Right grades 7 and 8 visiting teacher ior cerebral is fed via the right posterior communicator. Right vertebral artery is small in caliber with a superimposed 50% stenosis. IMPRESSION: No significant stenosis, occlusion, or aneurysm within the [place]. 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 ACT 112: Negative or not required by law. The above report was generated using voice recognition software. It may contain grammatical, syntax or spelling errors. Electronically signed by: Michael Guan M.D. 12/08/2019 8:32 PM
[2019-12-08 20:43] LABS: Appearance Urine Clear (Clear); Bilirubin Urine Negative (Negative); Blood Urine Negative (Negative); Color Urine Yellow; Glucose Urine UA Negative (Negative); Ketones Urine Trace (Negative); Leukocyte Esterase Urine Negative (Negative); Nitrite Urine Negative (Negative); Protein Urine Negative (Negative); Specific Gravity Urine 1.027 (1.000-1.030); Urobilinogen Urine Negative (Negative)
--- NOTE | 2019-12-08 20:55 | XRay Report ---
XR chest 1V portable CLINICAL HISTORY: cva mental status change COMPARISON STUDY: 05/11/2019 FINDINGS: Moderate cardiomegaly. Bipolar cardiac pacer in good position. Prominent pulmonary vasculature. IMPRESSION: Mild congestive heart failure ACT 112: Negative or not required by law. The above report was generated using voice recognition software. It may contain grammatical, syntax or spelling errors. Electronically signed by: Michael Guan M.D. 12/08/2019 8:53 PM
--- NOTE | 2019-12-08 22:41 | History & Physical Report ---
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 In ER pt afebrile, P: 136 in a-fib, R: 20, BP: 172/126 down to 181/87, 94% on RA. Na: 133, otherwise no significant electrolyte abnormality, UA unremarkable CT HEAD:No acute intracranial abnormality. CTA HEAD:No significant stenosis, occlusion, or aneurysm within the [place]. 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 Incidental note is made of multiple lytic changes within the skull suggesting possible myelomatous type change. CTA NECK:1. Considerable plaque formation bilaterally. 2. 30-40% narrowing of the carotid bifurcations and proximal internal carotid arteries bilaterally. 3. 50% narrowing of the mid and distal right vertebral artery with no evidence for a high-grade stenotic process of the vertebral basilar system. -Pt with aphasia, weakness and suspected right visual deficit on exam -Tele to monitor -give aspirin per rectum now -HA1C in am -try to obtain MRI brain (outpatient cardiology records report pacer is MRI compatible) -aspiration precautions -PT/OT consult -Will hold statin currently secondary to aspiration precautions -allow permissive HTN -neurology consult -cardiology consult, will need further discussion about a-fib, anticoagulation risks and benefits (2) Atrial fibrillation with RVR: Pt with h/o paroxysmal atrial fibrillation. H/O afib s/p cardioversion in 2018 with recurrence Last outpatient pacer interrogation in 09/2019 showed a-fib since 06/2019 Pt not on anticoagulation secondary to bleeding risk and fall Risk. H/O spontaneous intra-abdominal hemorrhage with unknown source in 2018 while on Couamdin, H/O traumatic brain hemorrhage secondary to fall in 07/2018 and off coumadin since. -In ER given Cardizem 5mg IV and Cardizem drip titrated from 5mg down to 2.5 with HR from 130's to 70's. -Hold Cardizem drip at this time -Closely monitor HR, may need to consider additional agent -Cardiology consult (3) Sick sinus syndrome: (4) History of pacemaker: S/P Pacemaker in 04/2019 Outpatient cardiology notes report pacemaker is MRI compatible (5) HTN (hypertension): hypertensive in ER improved while on cardizem drip Will allow permissive HTN currently with suspected CVA Hold home oral losartan as is npo for dysphagia screen (6) Abnormal CT scan, head: CTA Head: Incidental note is made of multiple lytic changes within the skull suggesting possible myelomatous type change (7) Chronic hyponatremia: Na: 133. At baseline Monitor BMP (8) Hypothyroidism: TSH pending hold oral levothyroxine at this time since npo DVT Prophylaxis -SCDs DaughterErika would like updates. DNR/DNI as per discussion with pt's daughter and per pt's advanced directive Follows with Dr Kinga Bermudez for routine care Pt was seen and care coordinated with Dr White. 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 History obtained from pt's daughter secondary to pt's current status. Daughter reports that pt's stated she seemed more confused this morning. It is reported cleaning lady was at house today around 1- 2pm and noticed pt was having difficulty writing a check. Later this evening noted pt with right sided weakness and unable to get out of bed and pt had garbled speech and not talking much and was then brought to ER. No known falls or recent illness. Allergies Allergy/AdvReac Type Severity Reaction Status Date / Time latex Allergy Unknown skin Verified 12/08/19 21:11 irritation mirtazapine Allergy Rash Verified 12/08/19 21:11 lisinopril AdvReac Unknown COUGH Verified 07/07/20 22:38 Home Medications Home Medications Medication Instructions Recorded Confirmed Type acetaminophen [Tylenol] 650 mg PO QID PRN 05/11/19 12/08/19 History aspirin [Aspir-81] 81 mg PO DAILY 05/11/19 12/08/19 History calcium carbonate-vitamin D3 1 tab PO BID 05/11/19 12/08/19 History [Calcium 500 + D] hydroxyzine HCl 10 mg PO TID PRN 05/11/19 12/08/19 History levothyroxine 100 mcg PO DAILY 05/11/19 12/08/19 History losartan [Cozaar] 25 mg PO HS 05/11/19 12/08/19 History magnesium oxide [MagOx] 400 mg PO DAILY 05/11/19 12/08/19 History mirtazapine [Remeron] 15 mg PO HS 05/11/19 12/08/19 History sennosides-docusate sodium [Senna 1 tab PO DAILY 05/11/19 12/08/19 History Plus] triamcinolone acetonide 1 applic TOPICAL UD 05/11/19 12/08/19 History metoprolol succinate 75 mg PO DAILY 12/08/19 12/08/19 History Past Med/Surg History Medical History (Updated 12/08/19 @ 22:46 by Ayah Kirkpatrick PA-C) Acute CVA (cerebrovascular accident) (Inactive) Atrial fibrillation (Chronic) Chronic hyponatremia History of pacemaker HTN (hypertension) (Chronic) Hypomagnesemia (Acute) Hyponatremia Hypothyroidism (Chronic) Intracranial hemorrhage (Inactive) Left leg swelling (Acute) Sick sinus syndrome Surgical History H/O colonoscopy (Chronic) Family History Other Cancer Social History (Updated 12/08/19 @ 22:33 by Ayah Kirkpatrick PA-C) Preferred Language: [place] Communication Ability: Effective 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 Required: No Beliefs That Will Affect Care: None marital status: Current Living Situation: Alone current occupational status: retired Other Information That Helps Us Care for You: No Feels Safe at Home: Declines to Answer Smoking Status: Never smoker Hx Alcohol Use: No Hx Substance Use: No Review of Systems Review of Systems: Unobtainable due to cognitive status Physical Exam Physical Exam: General: moderately developed, moderately nourished elderly female, non-ill appearing, appears to be more comfortable lying towards left side Head: normocephalic, atraumatic Eyes: PERRL, Pt with gaze to left, appears to be right side deficit, unable to follow finger to fully test EOM's, conjunctiva non-injected, anicteric ENT: normal inspection external ears, nose, mucous membranes moist Neck: supple, trachea midline Lungs: clear, no respiratory distress, no wheezing/rhonchi/rales CV: irregularly irregular, rate 78, no pretibial edema Abd: normal BS, soft, no apparent tenderness to palpation Ext: no cyanosis, no calf tenderness Neuro: Awake, opens eyes on repeated prompting, does not follow finger, multiple prompts for following commands and only will slightly squeeze fingers with weak manager sas strength bilaterally, pt will not attempt active ROM of upper or lower extremities, is noted to be wiggling right foot and then pull bilateral legs up to flexed position as apparent position of comfort, no apparent facial drooping, unable to test facial movements or strength or tongue movement (unsure if pt understands commands). bilateral patella reflex intact Skin: warm, dry Results & Data Results & Data ([facility]) Vital Signs (Past 12 Hours) Vital Signs Temp Pulse Pulse Resp BP BP Pulse Ox 12/08/19 21:36 77 16 160/75 H 94 12/08/19 21:07 72 16 184/93 H 94 12/08/19 20:56 108 H 18 164/119 H 94 12/08/19 20:05 36.9 C 136 H 20 172/126 H 94 Laboratory Results Short CBC 12/08/19 Range/Units 19:45 WBC 10.23 (4.8-10.8) K/uL Hgb 15.1 (12.0-16.0) g/dL Hct 46.1 (37-47) % Plt Count 171 (130-400) K/uL BMP 12/08/19 19:45 Sodium 133 L Potassium 4.3 Chloride 98 Carbon Dioxide 29 BUN 12 Creatinine 0.74 Glucose 130 H Calcium 9.1 Cardiac Enzymes 12/08/19 Range/Units 19:45 Troponin I < 0.015 (0-0.045) ng/ml Liver Function 12/08/19 Range/Units 19:45 Total Bilirubin 1.2 H (0.2-1) mg/dl AST 45 H (15-37) U/L ALT 47 (12-78) U/L Alkaline Phosphatase 115 (45-117) U/L Albumin 3.7 (3.4-5.0) gm/dl Urine 12/08/19 Range/Units 20:30 Urine Color Yellow Urine Appearance Clear (Clear) Urine pH 8.0 H (4.5-7.5) Ur Specific [address] 1.027 (1.000-1.030) Urine Protein Negative (Negative) Urine Glucose (UA) Negative (Negative) Diagnostic Findings CT HEAD: Impression: No acute intracranial abnormality. Chronic and age-related change. CTA HEAD: IMPRESSION: No significant stenosis, occlusion, or aneurysm within the [place]. 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 Incidental note is made of multiple lytic changes within the skull suggesting possible myelomatous type change. CTA NECK: IMPRESSION: 1. Considerable plaque formation bilaterally. 2. 30-40% narrowing of the carotid bifurcations and proximal internal carotid arteries bilaterally. 3. 50% narrowing of the mid and distal right vertebral artery with no evidence for a high-grade stenotic process of the vertebral basilar system. CXR: IMPRESSION: Mild congestive heart failure Code Status & VTE Plan VTE Prophylaxis Plan VTE Prophylaxis will be ordered: Yes Supervising Physician Co-Signing Physician Notes I have seen and examined the patient and have discussed the case with the provider above. I agree with the assessment and plan as stated. 84 yo F with known h/o atrial fibrillation presents with acute onset confusion, expressive and receptive aphasia who appears to have total right sided neglect. At baseline last week she was independent and completely oriented and functional per her daughter. The patient lives with her who has Alzheimer's dementia. On exam she cannot follow instruction or speak any intelligible words. She does make sounds and withdraws to pain. Reflexes appear to be intact bilaterally at the knee (2/4). UA is clear and CXR reveals ?vascular congestion without evidence of infiltrate. Per family, she abruptly changed mental status earlier this morning. Again, she has a PM which may or may not be MRI compatible, however, an MRI would be helpful here. Daughter states that despite the strokes, she feels it is too dangerous to have mom on any blood thinners, but also expressed this should be the director of student life's decision. We have consulted them to address the topic of anticoagulation at this juncture. As above, giving ASA and allowing permissive hypertension. Statin held as NPO. Further evaluation of functional abilities to take place in the morning. Neuro consulted. Physical exam as above. DO Christopher
[2019-12-08] MEDS ORDERED: ASPIRIN 300 MG SUPP PR ONE (23:00)
[2019-12-08] MEDS ORDERED: PHARMACIST DISCHARGE MED REC CONSULT PRN (23:05)
[2019-12-09] MEDS: SODIUM CHLORIDE 0.9% 1000ML 1,000 ML IV SCH ×5 (00:05→15:23)
[2019-12-09 05:57] LABS: Estimated Average Glucose 120 mg/dl; Hemoglobin A1C 5.8 % (4.5-5.6)
[2019-12-09] MEDS: ACETAMINOPHEN 1,000 MG/100 ML VIAL IV PRN ×2 (07:16→18:35)
[2019-12-09 07:41] LABS: Basophils # (auto) 0.01 K/uL (0-0.2); Basophils % (auto) 0.1 %; Hematocrit (blood only) 46.2 % (37-47); Hemoglobin 15.5 g/dL (12.0-16.0); Immature Granulocytes # (auto) 0.03 K/uL (0.00-0.02); Immature Granulocytes % (auto) 0.2 %; Lymphocytes # (auto) 1.05 K/uL (1.2-3.4); Mean Corpuscular Hemoglobin 31.4 pg (25-34); Mean Corpuscular Hgb Conc 33.5 g/dL (32-36); Mean Corpuscular Volume 93.5 fL (80-100); Mean Platelet Volume 11.3 fL (7.4-10.4); Monocytes # (auto) 0.64 K/uL (0.11-0.59); Monocytes % (auto) 4.9 %; Neutrophils # (auto) 11.45 K/uL (1.4-6.5); Neutrophils % (auto) 86.8 %; Platelet Count 151 K/uL (130-400); RDW Coefficient of Variation 14.3 % (11.5-14.5); RDW Standard Deviation 48.6 fL (36.4-46.3); Red Blood Count 4.94 M/uL (4.2-5.4); White Blood Count 13.18 K/uL (4.8-10.8)
[2019-12-09 08:05] LABS: BUN Creatinine Ratio 13.2 (10-20); Calcium 9.6 mg/dl (8.5-10.1); Creatinine Clr Calc Pharmacy 49.7 ml/min; Est GFR (African American) 77.8; Est GFR (Non-African American) 67.2; Potassium 4.2 mmol/L (3.5-5.1)
[2019-12-09] MEDS: LEVOTHYROXINE SODIUM 50 MCG in SYRINGE 0 ML IV SCH (08:19)
[2019-12-09] MEDS ORDERED: VANCOMYCIN CONSULT ACTIVE PRN (09:17)
--- NOTE | 2019-12-09 09:20 | Hospitalist Progress Note ---
Date of Service December 09, 2019 Assessment & Plan (1) Fever: (2) Stroke-like symptom: 84 y/o F with PMH paroxysmal atrial fibrillation not on anticoagulation secondary to fall and bleeding risk, sick sinus syndrome s/p pacemaker 04/2019, HTN, hypothyroidism, chronic hyponatremia, h/o TIA in 05/2019, h/o intraabdominal hemorrhage in 2018 while on coumadin with unknown source, h/o traumatic brain hemorrhage secondary to fall in 07/2018 presented to ER for noted weakness and aphasia with noted confusion In ER pt afebrile, P: 136 in a-fib, R: 20, BP: 172/126 down to 181/87, 94% on RA. Na: 133, otherwise no significant electrolyte abnormality, UA unremarkable CT HEAD:No acute intracranial abnormality. CTA HEAD:No significant stenosis, occlusion, or aneurysm within the [place]. 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 Incidental note is made of multiple lytic changes within the skull suggesting possible myelomatous type change. CTA NECK:1. Considerable plaque formation bilaterally. 2. 30-40% narrowing of the carotid bifurcations and proximal internal carotid arteries bilaterally. 3. 50% narrowing of the mid and distal right vertebral artery with no evidence for a high-grade stenotic process of the vertebral basilar system. Got Aspirin A1c is 5.8 MRI brain does not show any acute process/CVA Continue aspiration precautions Will appreciate neurology evaluation Patient became febrile this AM, Also had leukocytosis Concern for sepsis especially in the background of altered mental status. Met SIRS criteria Blood cultures x 2 CXR and Urine culture Check procal, ESR, CRP, lactate If lactate >2, will give NSS bolus 30cc/kg Empiric antibiotics initiated with vanc + cefepime Discussed with daughter who was at bedside. She reported that her dad reported patient was slow, mostly in bed yesterday, did not get around much, confused and not able to write checks yesterday like she usually does and by evening, mental status was worse that she was lethargic and not communicating. She also reported that patient's health aide did not come on saturday as the aide was sick. She stated that she called agency to inquire about what kind of illness health aide had but could not get info likely due to HIPAA Due to this history and the current pandemic, will test for COVID-19 to rule this out (3) Atrial fibrillation with RVR: Pt with h/o paroxysmal atrial fibrillation. H/O afib s/p cardioversion in 2018 with recurrence Last outpatient pacer interrogation in 09/2019 showed a-fib since 06/2019 Pt not on anticoagulation secondary to bleeding risk and fall Risk. H/O spontaneous intra-abdominal hemorrhage with unknown source in 2018 while on Couamdin, H/O traumatic brain hemorrhage secondary to fall in 07/2018 and off coumadin since. In ER given Cardizem 5mg IV and Cardizem drip titrated from 5mg down to 2.5 with HR from 130's to 70's. Closely monitor HR, may need to consider additional agent Currently rate controlled Director Of Aviation evaluation appreciated No anticoagulation for now but this may be addressed later (4) Sick sinus syndrome: (5) History of pacemaker: S/P Pacemaker in 04/2019 Outpatient cardiology notes report pacemaker is MRI compatible (6) HTN (hypertension): Was hypertensive in ER improved while on cardizem drip Permissive HTN due to suspicion for CVA Continue to hold home oral losartan for now especially with suspected sepsis Will monitor BP and manage accordingly (7) Abnormal CT scan, head: CTA Head: Incidental note is made of multiple lytic changes within the skull suggesting possible myelomatous type change (8) Chronic hyponatremia: Na: 130 this morning Hyponatremia appears chronic from review of labs over the past year Monitor BMP (9) Hypothyroidism: TSH 1.27 Continue iv levothyroxine for now while NPO DVT Prophylaxis -SCDs Daughter, Erika. DNR/DNI as per discussion with pt's daughter and per pt's advanced directive Admission and Anticipated Discharge Date Admission Date: December 08, 2019 Subjective Patient seen and examined Appears lethargic Has been febrile this AM Limited ROS due to mental status Opened eye momentarily while being covered by [employer] HELPER who was at bedside Review of Systems Review of Systems: Unobtainable due to reduced consciousness Physical Exam Constitutional: no acute distress Elderly woman, thin with muscle wasting. Eyes: Eyes closed throughout evaluation PERRL ENMT: Moist oral mucosal membrane Respiratory: normal respiratory effort, lungs clear to auscultation Cardiovascular: Irregularly irregular, S1-2, no pedal edema Gastrointestinal (Abdomen): normal bowel sounds, soft, nontender, no hepatosplenomegaly Musculoskeletal: Extremities: no cyanosis No leg edema Neurologic: Patient is lethargic, withdraws from pain. More movement of LE >UE Not following commands or opening eye to call Results & Data Results & Data ([facility]) Vital Signs (Past 12 Hours) Vital Signs Temp Pulse Pulse Resp BP BP BP 12/09/19 09:12 39.2 C H 12/09/19 08:34 39.6 C H 12/09/19 08:00 80 12/09/19 07:10 39.4 C H 52 L 19 167/97 H 12/09/19 03:08 36.8 C 96 H 17 145/79 H 12/08/19 23:33 36.5 C 108 H 17 164/110 H 12/08/19 23:05 92 H 12/08/19 22:50 36.7 C 96 H 18 176/117 H 12/08/19 22:36 75 18 181/87 H 12/08/19 21:36 77 16 160/75 H Pulse Ox Pulse Ox 12/09/19 09:12 12/09/19 08:34 12/09/19 08:00 12/09/19 07:10 94 12/09/19 03:08 96 12/08/19 23:33 97 12/08/19 23:05 95 12/08/19 22:50 95 12/08/19 22:36 94 12/08/19 21:36 94 Laboratory Results Laboratory Results - last 24 hr 12/08/19 12/08/19 12/08/19 19:45 19:45 19:45 WBC 10.23 RBC 4.84 Hgb 15.1 Hct 46.1 MCV 95.2 MCH 31.2 MCHC 32.8 RDW Std Deviation 50.1 H RDW Coeff of Del 14.4 Plt Count 171 MPV 11.4 H Immature Gran % (Auto) 0.1 Neut % (Auto) 76.8 Lymph % (Auto) 16.8 [place] % (Auto) 5.8 Eos % (Auto) 0.3 Baso % (Auto) 0.2 Neut # (Auto) 7.86 H Lymph # (Auto) 1.72 [place] # (Auto) 0.59 Eos # (Auto) 0.03 Baso # (Auto) 0.02 Immature Gran # (Auto) 0.01 ESR PT 11.5 INR 1.1 APTT 26.3 PTT Ratio 0.9 Sodium 133 L Potassium 4.3 Chloride 98 Carbon Dioxide 29 Anion Gap 6.0 BUN 12 Creatinine 0.74 Est Cr Clr Drug Dosing 49.7 Est GFR ( Amer) 86.8 Est GFR (Non-Af Amer) 74.9 BUN/Creatinine Ratio 16.2 Glucose 130 H Estimat Average Glucose Hemoglobin A1c Calcium 9.1 Magnesium 1.8 Total Bilirubin 1.2 H AST 45 H ALT 47 Alkaline Phosphatase 115 Troponin I < 0.015 C-Reactive Protein Total Protein 7.4 Albumin 3.7 Globulin 3.7 Albumin/Globulin Ratio 1.0 Triglycerides Cholesterol LDL Cholesterol, Calc VLDL Cholesterol, Calc HDL Cholesterol Cholesterol/HDL Ratio Procalcitonin TSH 1.270 Urine Color Urine Appearance Urine pH Ur Specific [place] Urine Protein Urine Glucose (UA) Urine Ketones Urine Blood Urine Nitrite Urine Bilirubin Urine Urobilinogen Ur Leukocyte Esterase Blood Type Antibody Screen 12/08/19 12/08/19 12/08/19 20:07 20:21 20:30 WBC RBC Hgb Hct MCV MCH MCHC RDW Std Deviation RDW Coeff of Del Plt Count MPV Immature Gran % (Auto) Neut % (Auto) Lymph % (Auto) [place] % (Auto) Eos % (Auto) Baso % (Auto) Neut # (Auto) Lymph # (Auto) [place] # (Auto) Eos # (Auto) Baso # (Auto) Immature Gran # (Auto) ESR PT INR APTT PTT Ratio Sodium Potassium Chloride Carbon Dioxide Anion Gap BUN Creatinine Est Cr Clr Drug Dosing Est GFR ( Amer) Est GFR (Non-Af Amer) BUN/Creatinine Ratio Glucose Estimat Average Glucose 120 Hemoglobin A1c 5.8 H Calcium Magnesium Total Bilirubin AST ALT Alkaline Phosphatase Troponin I C-Reactive Protein Total Protein Albumin Globulin Albumin/Globulin Ratio Triglycerides Cholesterol LDL Cholesterol, Calc VLDL Cholesterol, Calc HDL Cholesterol Cholesterol/HDL Ratio Procalcitonin TSH Urine Color Yellow Urine Appearance Clear Urine pH 8.0 H Ur Specific [place] 1.027 Urine Protein Negative Urine Glucose (UA) Negative Urine Ketones Trace H Urine Blood Negative Urine Nitrite Negative Urine Bilirubin Negative Urine Urobilinogen Negative Ur Leukocyte Esterase Negative Blood Type Cancelled Antibody Screen Cancelled 12/09/19 12/09/19 12/09/19 07:16 07:16 07:16 WBC 13.18 H RBC 4.94 Hgb 15.5 Hct 46.2 MCV 93.5 MCH 31.4 MCHC 33.5 RDW Std Deviation 48.6 H RDW Coeff of Del 14.3 Plt Count 151 MPV 11.3 H Immature Gran % (Auto) 0.2 Neut % (Auto) 86.8 Lymph % (Auto) 8.0 [place] % (Auto) 4.9 Eos % (Auto) 0.0 Baso % (Auto) 0.1 Neut # (Auto) 11.45 H Lymph # (Auto) 1.05 L [place] # (Auto) 0.64 H Eos # (Auto) 0.00 Baso # (Auto) 0.01 Immature Gran # (Auto) 0.03 H ESR Pending PT INR APTT PTT Ratio Sodium 130 L Potassium 4.2 Chloride 95 L Carbon Dioxide 25 Anion Gap 10.0 BUN 11 Creatinine 0.81 Est Cr Clr Drug Dosing 49.7 Est GFR ( Amer) 77.8 Est GFR (Non-Af Amer) 67.2 BUN/Creatinine Ratio 13.2 Glucose 115 H Estimat Average Glucose Hemoglobin A1c Calcium 9.6 Magnesium Total Bilirubin AST ALT Alkaline Phosphatase Troponin I C-Reactive Protein Total Protein Albumin Globulin Albumin/Globulin Ratio Triglycerides 79 Cholesterol 130 LDL Cholesterol, Calc 49 VLDL Cholesterol, Calc 16 HDL Cholesterol 65 Cholesterol/HDL Ratio 2 Procalcitonin TSH Urine Color Urine Appearance Urine pH Ur Specific [place] Urine Protein Urine Glucose (UA) Urine Ketones Urine Blood Urine Nitrite Urine Bilirubin Urine Urobilinogen Ur Leukocyte Esterase Blood Type Antibody Screen 12/09/19 12/09/19 07:16 09:27 WBC RBC Hgb Hct MCV MCH MCHC RDW Std Deviation RDW Coeff of Del Plt Count MPV Immature Gran % (Auto) Neut % (Auto) Lymph % (Auto) [place] % (Auto) Eos % (Auto) Baso % (Auto) Neut # (Auto) Lymph # (Auto) [place] # (Auto) Eos # (Auto) Baso # (Auto) Immature Gran # (Auto) ESR PT INR APTT PTT Ratio Sodium Potassium Chloride Carbon Dioxide Anion Gap BUN Creatinine Est Cr Clr Drug Dosing Est GFR ( Amer) Est GFR (Non-Af Amer) BUN/Creatinine Ratio Glucose Estimat Average Glucose Hemoglobin A1c Calcium Magnesium Total Bilirubin AST ALT Alkaline Phosphatase Troponin I C-Reactive Protein Pending Total Protein Albumin Globulin Albumin/Globulin Ratio Triglycerides Cholesterol LDL Cholesterol, Calc VLDL Cholesterol, Calc HDL Cholesterol Cholesterol/HDL Ratio Procalcitonin Pending TSH Urine Color Urine Appearance Urine pH Ur Specific [place] Urine Protein Urine Glucose (UA) Urine Ketones Urine Blood Urine Nitrite Urine Bilirubin Urine Urobilinogen Ur Leukocyte Esterase Blood Type Antibody Screen
--- NOTE | 2019-12-09 09:39 | Cardiology Consultation ---
Date of Consultation December 09, 2019 Assessment & Plan (1) Stroke: Patient is an 84-year-old female with history of persistent atrial fibrillation, sick sinus syndrome with tachybradycardia syndrome prior pacemaker insertion. Her history is notable for prior TIA and high chads vas 2 score zane ahn is had complications of intra-abdominal and intracranial bleeding while on warfarin. Patient deemed relatively high risk anticoagulation candidate and is been maintained on antiplatelet therapy. Current presentation likely thromboembolic event Degree of neurologic decline concerning with MRI and neurology assessment pending. No contraindications to habit-forming MRI with current pacemaker and pacemaker graphic art sales representative contacted. Patient high risk for aspiration complications and currently febrile this morning Should patient make meaningful recovery may readdress anticoagulation issues but likely not an option. We will follow along during hospital stay (2) Persistent atrial fibrillation: Atrial fibrillation elevated on initial presentation likely driven by acute event. Heart rates better controlled this morning however trending somewhat higher. Patient not cognizant able to take oral medications we will provide low-dose IV beta-carmine for rate control while allowing permissive hypertension (3) Hypertension: (4) History of pacemaker: Device functioning appropriately History of Present Illness Reason for Consultation: Stroke, persistent atrial fibrillation Requesting Physician: Dr. White Attending Physician: Ivana Esteban MD History of Present Illness Patient is a complex 84-year-old female with ongoing issues 1. Persistent atrial fibrillation/flutter 1. QTc prolongation when loaded with Sotalol. 2. Status post direct-current cardioversion on 11/21/17 with early reoccurrence of atrial fibrillation for which she was prescribed amiodarone post procedure. Cardioversion complicated, requiring intubation with only 50 mg of propofol for sedation. 3. Discontinuation of amiodarone on 05/07/2018 due to intolerance 4. [id number] Score 6 points with TIA May 2019 5. Spontaneous intra-abdominal hemorrhage in March 2018 6. Mechanical fall with resultant multiple facial fractures, traumatic intracerebral hemorrhage , left distal radius/ulna fracture, lumbar transverse process fracture in July 2018 leading to discontinuation of anticoagulation 7. 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 Post procedural pneumothorax, treated conservatively 2. Hypertension. 3. Chart history of hypertensive encephalopathy. 4. Hyponatremia. 5. Chart history of peripheral artery disease. Patient presents this admission having been observed to have progressive and acute neurologic decline day of admission 12/08/2019. Patient developed focal features per description with left gaze deviation and right-sided weakness. On presentation in atrial fibrillation with rapid response. Rhythm appears persistent for several months. Previously determined to be a high risk anticoagulation candidate due to multiple issues as above. Patient unable to give any additional information this morning with minimal responsiveness to noxious stimulation. Heart rates improved but now febrile Allergies Allergy/AdvReac Type Severity Reaction Status Date / Time latex Allergy Unknown skin Verified 12/08/19 21:11 irritation mirtazapine Allergy Rash Verified 12/08/19 21:11 lisinopril AdvReac Unknown COUGH Verified 12/08/19 22:38 Home Medications Home Medications Medication Instructions Recorded Confirmed Type acetaminophen [Tylenol] 650 mg PO QID PRN 05/11/19 12/08/19 History aspirin [Aspir-81] 81 mg PO DAILY 05/11/19 12/08/19 History calcium carbonate-vitamin D3 1 tab PO BID 05/11/19 12/08/19 History [Calcium 500 + D] hydroxyzine HCl 10 mg PO TID PRN 05/11/19 12/08/19 History levothyroxine 100 mcg PO DAILY 05/11/19 12/08/19 History losartan [Cozaar] 25 mg PO HS 05/11/19 12/08/19 History magnesium oxide [MagOx] 400 mg PO DAILY 05/11/19 12/08/19 History mirtazapine [Remeron] 15 mg PO HS 05/11/19 12/08/19 History sennosides-docusate sodium [Senna 1 tab PO DAILY 05/11/19 12/08/19 History Plus] triamcinolone acetonide 1 applic TOPICAL UD 05/11/19 12/08/19 History metoprolol succinate 75 mg PO DAILY 12/08/19 12/08/19 History Patient History Medical History Acute CVA (cerebrovascular accident) (Inactive) Atrial fibrillation (Chronic) Chronic hyponatremia History of pacemaker HTN (hypertension) (Chronic) Hypomagnesemia (Acute) Hyponatremia Hypothyroidism (Chronic) Intracranial hemorrhage (Inactive) Left leg swelling (Acute) Sick sinus syndrome Surgical History H/O colonoscopy (Chronic) Family History Other Cancer Social History Preferred Language: Faroese Communication Ability: Effective Homeopathic Doctor Required: No Beliefs That Will Affect Care: None marital status: Current Living Situation: Alone current occupational status: retired Other Information That Helps Us Care for You: No Feels Safe at Home: Declines to Answer Smoking Status: Never smoker Hx Alcohol Use: No Hx Substance Use: No Review of Systems Review of Systems: Unobtainable due to cognitive status Physical Exam Constitutional: Elderly female minimally responsive to noxious stimuli Eyes: Left gaze deviation with manual opening of eyelids ENMT: external ear and nose normal, oropharynx normal Neck: trachea midline, no thyromegaly Respiratory: Auscultation: + diminished lung sounds Cardiovascular: Rate/Rhythm: + irregularly irregular Heart Sounds: normal S1, normal S2 and + murmur (Grade 1/6 systolic murmur at apex) Palpation: normal PMI Vessels: normal carotid upstroke; no JVD, no carotid bruit and no abdominal aortic bruit Extremities: normal capillary refill; no edema Chest (Breasts): Chest: + pacemaker (No surrounding irritation or tenderness) Gastrointestinal (Abdomen): normal bowel sounds, soft, nontender, no hepatosplenomegaly Neurologic: And only responsive to noxious stimuli. Focal evaluation not obtained Results & Data ([facility]) Vital Signs (Past 12 Hours) Vital Signs Temp Pulse Pulse Resp BP BP BP 12/09/19 09:12 39.2 C H 12/09/19 08:34 39.6 C H 12/09/19 08:00 80 12/09/19 07:10 39.4 C H 52 L 19 167/97 H 12/09/19 03:08 36.8 C 96 H 17 145/79 H 12/08/19 23:33 36.5 C 108 H 17 164/110 H 12/08/19 23:05 92 H 12/08/19 22:50 36.7 C 96 H 18 176/117 H 12/08/19 22:36 75 18 181/87 H 12/08/19 21:36 77 16 160/75 H Pulse Ox Pulse Ox 12/09/19 09:12 12/09/19 08:34 12/09/19 08:00 12/09/19 07:10 94 12/09/19 03:08 96 12/08/19 23:33 97 12/08/19 23:05 95 12/08/19 22:50 95 12/08/19 22:36 94 12/08/19 21:36 94 Laboratory Results Laboratory Results - last 24 hr 12/08/19 12/08/19 12/08/19 19:45 19:45 19:45 WBC 10.23 RBC 4.84 Hgb 15.1 Hct 46.1 MCV 95.2 MCH 31.2 MCHC 32.8 RDW Std Deviation 50.1 H RDW Coeff of Del 14.4 Plt Count 171 MPV 11.4 H Immature Gran % (Auto) 0.1 Neut % (Auto) 76.8 Lymph % (Auto) 16.8 [place] % (Auto) 5.8 Eos % (Auto) 0.3 Baso % (Auto) 0.2 Neut # (Auto) 7.86 H Lymph # (Auto) 1.72 [place] # (Auto) 0.59 Eos # (Auto) 0.03 Baso # (Auto) 0.02 Immature Gran # (Auto) 0.01 ESR PT 11.5 INR 1.1 APTT 26.3 PTT Ratio 0.9 Sodium 133 L Potassium 4.3 Chloride 98 Carbon Dioxide 29 Anion Gap 6.0 BUN 12 Creatinine 0.74 Est Cr Clr Drug Dosing 49.7 Est GFR ( Amer) 86.8 Est GFR (Non-Af Amer) 74.9 BUN/Creatinine Ratio 16.2 Glucose 130 H Estimat Average Glucose Hemoglobin A1c Calcium 9.1 Magnesium 1.8 Total Bilirubin 1.2 H AST 45 H ALT 47 Alkaline Phosphatase 115 Troponin I < 0.015 C-Reactive Protein Total Protein 7.4 Albumin 3.7 Globulin 3.7 Albumin/Globulin Ratio 1.0 Triglycerides Cholesterol LDL Cholesterol, Calc VLDL Cholesterol, Calc HDL Cholesterol Cholesterol/HDL Ratio Procalcitonin TSH 1.270 Urine Color Urine Appearance Urine pH Ur Specific [place] Urine Protein Urine Glucose (UA) Urine Ketones Urine Blood Urine Nitrite Urine Bilirubin Urine Urobilinogen Ur Leukocyte Esterase Blood Type Antibody Screen 12/08/19 12/08/19 12/08/19 20:07 20:21 20:30 WBC RBC Hgb Hct MCV MCH MCHC RDW Std Deviation RDW Coeff of Del Plt Count MPV Immature Gran % (Auto) Neut % (Auto) Lymph % (Auto) [place] % (Auto) Eos % (Auto) Baso % (Auto) Neut # (Auto) Lymph # (Auto) [place] # (Auto) Eos # (Auto) Baso # (Auto) Immature Gran # (Auto) ESR PT INR APTT PTT Ratio Sodium Potassium Chloride Carbon Dioxide Anion Gap BUN Creatinine Est Cr Clr Drug Dosing Est GFR ( Amer) Est GFR (Non-Af Amer) BUN/Creatinine Ratio Glucose Estimat Average Glucose 120 Hemoglobin A1c 5.8 H Calcium Magnesium Total Bilirubin AST ALT Alkaline Phosphatase Troponin I C-Reactive Protein Total Protein Albumin Globulin Albumin/Globulin Ratio Triglycerides Cholesterol LDL Cholesterol, Calc VLDL Cholesterol, Calc HDL Cholesterol Cholesterol/HDL Ratio Procalcitonin TSH Urine Color Yellow Urine Appearance Clear Urine pH 8.0 H Ur Specific [place] 1.027 Urine Protein Negative Urine Glucose (UA) Negative Urine Ketones Trace H Urine Blood Negative Urine Nitrite Negative Urine Bilirubin Negative Urine Urobilinogen Negative Ur Leukocyte Esterase Negative Blood Type Cancelled Antibody Screen Cancelled 12/09/19 12/09/19 12/09/19 07:16 07:16 07:16 WBC 13.18 H RBC 4.94 Hgb 15.5 Hct 46.2 MCV 93.5 MCH 31.4 MCHC 33.5 RDW Std Deviation 48.6 H RDW Coeff of Del 14.3 Plt Count 151 MPV 11.3 H Immature Gran % (Auto) 0.2 Neut % (Auto) 86.8 Lymph % (Auto) 8.0 [place] % (Auto) 4.9 Eos % (Auto) 0.0 Baso % (Auto) 0.1 Neut # (Auto) 11.45 H Lymph # (Auto) 1.05 L [place] # (Auto) 0.64 H Eos # (Auto) 0.00 Baso # (Auto) 0.01 Immature Gran # (Auto) 0.03 H ESR 8 PT INR APTT PTT Ratio Sodium 130 L Potassium 4.2 Chloride 95 L Carbon Dioxide 25 Anion Gap 10.0 BUN 11 Creatinine 0.81 Est Cr Clr Drug Dosing 49.7 Est GFR ( Amer) 77.8 Est GFR (Non-Af Amer) 67.2 BUN/Creatinine Ratio 13.2 Glucose 115 H Estimat Average Glucose Hemoglobin A1c Calcium 9.6 Magnesium Total Bilirubin AST ALT Alkaline Phosphatase Troponin I C-Reactive Protein Total Protein Albumin Globulin Albumin/Globulin Ratio Triglycerides 79 Cholesterol 130 LDL Cholesterol, Calc 49 VLDL Cholesterol, Calc 16 HDL Cholesterol 65 Cholesterol/HDL Ratio 2 Procalcitonin TSH Urine Color Urine Appearance Urine pH Ur Specific [place] Urine Protein Urine Glucose (UA) Urine Ketones Urine Blood Urine Nitrite Urine Bilirubin Urine Urobilinogen Ur Leukocyte Esterase Blood Type Antibody Screen 12/09/19 12/09/19 07:16 09:27 WBC RBC Hgb Hct MCV MCH MCHC RDW Std Deviation RDW Coeff of Del Plt Count MPV Immature Gran % (Auto) Neut % (Auto) Lymph % (Auto) [place] % (Auto) Eos % (Auto) Baso % (Auto) Neut # (Auto) Lymph # (Auto) [place] # (Auto) Eos # (Auto) Baso # (Auto) Immature Gran # (Auto) ESR PT INR APTT PTT Ratio Sodium Potassium Chloride Carbon Dioxide Anion Gap BUN Creatinine Est Cr Clr Drug Dosing Est GFR ( Amer) Est GFR (Non-Af Amer) BUN/Creatinine Ratio Glucose Estimat Average Glucose Hemoglobin A1c Calcium Magnesium Total Bilirubin AST ALT Alkaline Phosphatase Troponin I C-Reactive Protein Pending Total Protein Albumin Globulin Albumin/Globulin Ratio Triglycerides Cholesterol LDL Cholesterol, Calc VLDL Cholesterol, Calc HDL Cholesterol Cholesterol/HDL Ratio Procalcitonin Pending TSH Urine Color Urine Appearance Urine pH Ur Specific [place] Urine Protein Urine Glucose (UA) Urine Ketones Urine Blood Urine Nitrite Urine Bilirubin Urine Urobilinogen Ur Leukocyte Esterase Blood Type Antibody Screen (1) Hypertension Hypertension type: unspecified Qualified Code(s): I10 - Essential (primary) hypertension
[2019-12-09] MEDS ORDERED: VANCOMYCIN HCL 1,500 MG in SODIUM CHLORIDE 0.9% 500 ML IV ONE (10:00)
[2019-12-09] MEDS: CEFEPIME 1,000 MG in SYRINGE 0 ML IV SCH ×2 (10:06→18:35)
--- NOTE | 2019-12-09 10:16 | XRay Report ---
XR chest 1V portable CLINICAL HISTORY: Fever, AMS fever COMPARISON STUDY: 12/08/2019 FINDINGS: Moderate stable cardiomegaly. Components of congestive heart failure are stable to minimall y increased. Pulmonary vasculature is slightly increased. IMPRESSION: Stable to slightly progressive components of congestive heart failure ACT 112: Negative or not required by law. The above report was generated using voice recognition software. It may contain grammatical, syntax or spelling errors. Electronically signed by: Michael Guan M.D. 12/09/2019 10:15 AM
--- NOTE | 2019-12-09 10:55 | Pharmacy Report ---
Pharmacy Abx Initial Consult - Date of Service December 09, 2019 - Pharmacy Dosing Scope Date of Consult: 12/09/2019 Consultation requested by: Dr. Esteban Pharmacy is consulted to initiate Vancomycin IV dosing therapy, order appropriate labs and adjust drug dose/frequency. - Subjective The patient is a 84 year old F admitted on 12/08/19 22:01. - Objective Height: 5 ft 9 in Weight: 59.8 kg Vital Signs (Past 12hrs): Vital Signs Temp Pulse Pulse Resp BP Pulse Ox Pulse Ox 12/09/19 09:12 39.2 C H 12/09/19 08:34 39.6 C H 12/09/19 08:00 80 12/09/19 07:10 39.4 C H 52 L 19 167/97 H 94 12/09/19 03:08 36.8 C 96 H 17 145/79 H 96 12/08/19 23:33 36.5 C 108 H 17 164/110 H 97 12/08/19 23:05 92 H 95 Lab Results (24hrs): Laboratory Tests (24 Hours) 12/09/19 12/09/19 12/09/19 09:27 07:16 07:16 WBC Neut # (Auto) ESR 8 Creatinine Est Cr Clr Drug Dosing C-Reactive Protein 0.30 H Procalcitonin Cancelled 12/09/19 12/09/19 12/08/19 07:16 07:16 19:45 WBC 13.18 H Neut # (Auto) 11.45 H ESR Creatinine 0.81 0.74 Est Cr Clr Drug Dosing 49.7 49.7 C-Reactive Protein Procalcitonin 12/08/19 19:45 WBC 10.23 Neut # (Auto) 7.86 H ESR Creatinine Est Cr Clr Drug Dosing C-Reactive Protein Procalcitonin Micro Results: 12/09/19 08:25 Aerobic Blood Culture - Pending Blood Anaerobic Blood Culture - Pending 12/09/19 08:11 Aerobic Blood Culture - Pending Blood Anaerobic Blood Culture - Pending - Risk Factors for Resistance * None - Assessment & Plan Assessment 84 year old F admitted secondary to stroke-like symptoms * Pharmacy consulted to dose Vancomycin IV. Patient also on Cefepime but not a pharmacy consult. * Empiric antibiotics given patient is febrile at 39.6 C and has leukocytosis of 13.2k * 48 hour stop for empiric indication * Renal fxn appears to be at baseline * No trough ordered secondary to 48 hour stop date. If abx to continue beyond 48 hrs, trough will need ordered. Plan Vancomycin + Cefepime for empiric treatment of febrile illness Vancomycin IV * Patient meets criteria for vancomycin AUC dosing nomogram * AUC/LEANDRA is the preferred PK/PD target for vancomycin * Target AUC/LEANDRA = 400-600 * AUC guided dosing is effective and associated with decreased risk of nephrotoxicity Pharmacy will continue to follow and will adjust dose/frequency as necessary. Thank you.
--- NOTE | 2019-12-09 12:13 | Magnetic Resonance Report ---
MR brain wo con HISTORY: Stroke. Mental status change. acute stroke symptoms TECHNIQUE: Multiplanar multisequence MRI of the brain was performed without the use of contrast. COMPARISON STUDY: 09/10/2016 FINDINGS: Stable findings of age-related atrophy and chronic small vessel change. Small old right per iventricular infarct unchanged. Diffusion images show no evidence for an acute ischemic event. Ventricular system shows compensatory prominence. This is unchanged to slightly increased from the pr ior exam. IMPRESSION: 1. No evidence for an acute ischemic process. 2. Atrophy and chronic small vessel change stable to slightly progressive from the prior study. 3. Ventricular prominence considered to be compensatory also slightly increased from the prior exam. ACT 112: Negative or not required by law. The above report was generated using voice recognition software. It may contain grammatical, syntax or spelling errors. Electronically signed by: Michael Guan M.D. 12/09/2019 12:12 PM
[2019-12-09] MEDS: METOPROLOL TARTRATE 1 MG/ML VIAL IV SCH ×3 (13:05→23:08)
--- NOTE | 2019-12-09 15:45 | Communication Note ---
Date of Service: December 09, 2019 I have just seen Mrs. Garay and spoke with her son who just came in from out of town and let me know what her baseline status is ambulatory with some low-grade confusion and that the current situation is a marked change. She is barely arousable she keeps moving her right hand repetitively appears to have a mild left hemiparesis with facial asymmetry and lesser movements of the left arm and has reasonably good movements of the legs with noxious stimuli but beyond this examination is pretty limited The MRI was done and does not show evidence for an acute ischemic infarct at least based on diffusion-weighted imaging. There is a subtle area of higher intensity in the dorsal central midbrain that might if valid explain some of her presentation and could be a single area of embolic infarction. That having been set I am going to obtain an EEG just to be sure that there is no potential seizure focus and that this is a post ictal state as it is unclear historically exactly when all this started and what the manifestations of the initial event might have been I put an order in for an EEG and a full dictated consult will be forthcoming Shravan Montilla MD
--- NOTE | 2019-12-09 17:28 | Consultation Report ---
DATE OF CONSULTATION: 12/09/2019 Consultation for Judith White DO. HISTORY OF PRESENT ILLNESS: The patient is 84 years old and has known sick sinus syndrome, has a pacemaker on board, is in and out of atrial fibrillation and has had hemorrhagic complications on Coumadin making her felt to be ineligible for anticoagulants at this point and she has been simply on aspirin and Plavix. The complications included intra-abdominal hemorrhage in 2018, had a traumatic brain hemorrhage secondary to fall in 2019. She, in this setting, presented with language disturbance and confusion onset in the morning with weakness of generalized type, perhaps most prominent on the left and was felt not to be a candidate for TPA. Had a series of evaluations including CAT scans and CTAs, all of which were pretty unremarkable, was found to be in atrial fibrillation, but this was a known issue and has now had an MRI which shows only areas of old infarction and nothing clear cut in terms of embolic events other than in my opinion a suspicious area in the mid brain which may or may not be artifact. Other problems include in addition to the atrial fibrillation and sick sinus syndrome, hypertension, chronic hyponatremia, hypothyroidism, and she is felt to be a DNR and do not intubate after family conversation. The onset of all of this is very unclear. She was initially felt to have an aphasia with right-sided neglect, but she was independent prior to this and is not clear when this occurred. She was brought in the hospital and assessed as noted above and now is more responsive than the nurses have seen her, but is still very, very difficult to evaluate. Cardiology has seen her and feels that her pacemaker was MRI compatible and thus the image was done and results are as noted above. HOME MEDICATIONS: Include acetaminophen, aspirin, calcium, hydroxyzine, levothyroxine, losartan, magnesium oxide, Remeron, triamcinolone cream, metoprolol. ALLERGIES: SHE HAS ALLERGIES TO LATEX, MIRTAZAPINE AND LISINOPRIL. Her previous problems are as noted above include intracranial hemorrhage due to trauma, left leg swelling, sick sinus syndrome, hyponatremia, hypomagnesemia, hypertension, pacemaker, chronic atrial fibrillation and an assumed acute CVA although the diagnosis remains unestablished based on imaging studies thus far. SOCIAL HISTORY: Reveals her to be . She lives at home with her who is cognitively impaired according to the son and she is a nonsmoker, non consumer of ethanol. REVIEW OF SYSTEMS: Impossible to obtain, but according to what I can glean from the admitting physician, there has been no recent acute illness. No COVID-19 symptoms. No new issues referable to head, eyes, ears, nose and throat, cardiovascular, pulmonary, gastrointestinal, genitourinary, musculoskeletal or dermatologic systems. PHYSICAL EXAMINATION: VITAL SIGNS: Last night revealed a blood pressure of 172/126, pulse was 108, respirations were 18. The pulse at one time was up to 136 and she was afebrile. GENERAL: She was a thin woman who had no evidence for cranial trauma. Had normal gross examination of the head, eyes, ears, nose and throat, but there is preferential gaze left and there appeared to be some right-sided deficit and was unable to follow the examiner's fingers. NECK: No carotid bruits were heard. HEART: Had an irregularly irregular rhythm. ABDOMEN: Soft, nontender. EXTREMITIES: Free of edema. NEUROLOGIC: Today neurologically she is lying in bed with her neck flexed and both arms held in flexion with the right arm being more tensely held and undergoing repetitive motions and the left being a little more paretic. She did initially have some eye deviation to the left, but then the eyes began to rove and I thought there was a left upper motor neuron facial paresis ____ right. Could get her to withdraw both extremities with less so on the left and both lower extremities withdrew to pain, but beyond this examination was very limited. LABORATORY STUDIES: Have been pretty unremarkable. She has an elevated white count. Sodium is 133, which is not terribly low. Rest of her chemistries, etc., seem to be pretty unremarkable. I do not see evidence for urine culture, but the urinalysis appeared to be unremarkable. IMAGING STUDIES: Have been described above in other notes, but essentially include a relatively unremarkable CT angiography of the head and neck and normal CTA now, but pretty unremarkable MRI of the brain say for old infarctions. I am suspicious this was an embolic shower and it appears that there were some left hemisphere signs, now some possible right hemisphere signs and there is a suspicious area in the mid brain that may or may not explain all this. I am going to watch her overnight to obtain an EEG in the morning just to be sure there was no seizure-like activity that was not picked up by family members and that what we are seeing is a postictal state and may recommend repeat MR imaging and depending on the EEG results, may end up trying some anticonvulsants. At this point clinically this appears to be a stroke, though localization is less clearcut and imaging studies does not support it. DIDIER
[2019-12-09] MEDS: VANCOMYCIN HCL 750 MG in SODIUM CHLORIDE 0.9% 250 ML IV SCH (21:42)
--- NOTE | 2019-12-09 22:38 | Electrocardiogram Report ---
Test Reason : Blood Pressure : / mmHG Vent. Rate : 122 BPM Atrial Rate : 133 BPM P-R Int : 000 ms QRS Dur : 090 ms QT Int : 376 ms P-R-T Axes : 000 -15 208 degrees QTc Int : 535 ms Atrial fibrillation with rapid ventricular response Prolonged QT Abnormal ECG When compared with ECG of 11-MAY-2019 21:03, Atrial fibrillation has replaced Electronic atrial pacemaker Vent. rate has increased BY 45 BPM Nonspecific T wave abnormality now evident in Inferior leads T wave inversion now evident in Lateral leads Confirmed by Edward Horton [id number]) on 12/09/2019 10:38:27 PM Referred By: REFERRED SELF Confirmed By:Edward Horton
[2019-12-09] MEDS ORDERED: SODIUM CHLORIDE 0.9% 500 ML IV SCH (23:45)
[2019-12-10] MEDS: SODIUM CHLORIDE 0.9% 1000ML 1,000 ML IV SCH (01:07)
[2019-12-10] MEDS: CEFEPIME 1,000 MG in SYRINGE 0 ML IV SCH ×2 (02:23→09:10)
[2019-12-10] MEDS: METOPROLOL TARTRATE 1 MG/ML VIAL IV SCH ×3 (05:30→18:27)
[2019-12-10 08:15] LABS: Albumin Globulin Ratio 0.9 (0.9-2); BUN Creatinine Ratio 24.6 (10-20); Bilirubin,Total 1.9 mg/dl (0.2-1); Calcium 8.5 mg/dl (8.5-10.1); Creatinine Clr Calc Pharmacy 64.3 ml/min; Est GFR (African American) 94.7; Est GFR (Non-African American) 81.7; Globulin 3.2 gm/dl (2.5-4.0); Magnesium 1.7 mg/dl (1.8-2.4); Phosphorus 2.3 mg/dl (2.5-4.9); Potassium 3.1 mmol/L (3.5-5.1); Total Protein 6.2 gm/dl (6.4-8.2)
[2019-12-10 08:25] LABS: Basophils # (auto) 0.01 K/uL (0-0.2); Basophils % (auto) 0.1 %; Eosinophils # (auto) 0.01 K/uL (0-0.5); Eosinophils % (auto) 0.1 %; Hematocrit (blood only) 37.2 % (37-47); Hemoglobin 12.6 g/dL (12.0-16.0); Immature Granulocytes # (auto) 0.06 K/uL (0.00-0.02); Immature Granulocytes % (auto) 0.4 %; Lymphocytes # (auto) 1.12 K/uL (1.2-3.4); Lymphocytes % (auto) 6.8 %; Mean Corpuscular Hemoglobin 31.6 pg (25-34); Mean Corpuscular Hgb Conc 33.9 g/dL (32-36); Mean Corpuscular Volume 93.2 fL (80-100); Mean Platelet Volume 11.3 fL (7.4-10.4); Monocytes # (auto) 0.93 K/uL (0.11-0.59); Monocytes % (auto) 5.6 %; Neutrophils # (auto) 14.36 K/uL (1.4-6.5); Platelet Count 114 K/uL (130-400); RDW Coefficient of Variation 14.6 % (11.5-14.5); RDW Standard Deviation 49.7 fL (36.4-46.3); Red Blood Count 3.99 M/uL (4.2-5.4); White Blood Count 16.49 K/uL (4.8-10.8)
[2019-12-10] MEDS: VANCOMYCIN HCL 750 MG in SODIUM CHLORIDE 0.9% 250 ML IV SCH (09:12)
[2019-12-10] MEDS: LEVOTHYROXINE SODIUM 50 MCG in SYRINGE 0 ML IV SCH (09:18)
[2019-12-10] MEDS ORDERED: POTASSIUM PHOS 3 MMOL/1 ML INFUSION IV STA (10:40)
--- NOTE | 2019-12-10 10:41 | Hospitalist Progress Note ---
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 Na: 133, otherwise no significant electrolyte abnormality, UA unremarkable CT HEAD:No acute intracranial abnormality. CTA HEAD:No significant stenosis, occlusion, or aneurysm within the [place]. 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 Incidental note is made of multiple lytic changes within the skull suggesting possible myelomatous type change. CTA NECK:1. Considerable plaque formation bilaterally. 2. 30-40% narrowing of the carotid bifurcations and proximal internal carotid arteries bilaterally. 3. 50% narrowing of the mid and distal right vertebral artery with no evidence for a high-grade stenotic process of the vertebral basilar system. Got Aspirin A1c is 5.8 MRI brain does not show any acute process/CVA Altered mental status is likely from CVA, possible thromboembolic considering patient's risk factors Possible/Suspected) MRI negative stroke due to cerebral thromboembolism in the setting of non anticoagulated atrial fibrillation Continue aspiration precautions Will follow up neurology evaluation and recommendations Patient became febrile on 12/09/19 Worsening leukocytosis Sepsis, unclear source Labs called and revised initial report of GNR to no growth, reporting previous as erroneous Elevated lactate now normalized with IVF Blood cultures negative so far Continue antibiotics for now COVID is negative (3) Atrial fibrillation with RVR: Pt with h/o paroxysmal atrial fibrillation. H/O afib s/p cardioversion in 2017 with recurrence Last outpatient pacer interrogation in 09/2019 showed a-fib since 06/2019 Pt not on anticoagulation secondary to bleeding risk and fall Risk. H/O spontaneous intra-abdominal hemorrhage with unknown source in 2018 while on Couamdin, H/O traumatic brain hemorrhage secondary to fall in 07/2018 and off coumadin since. In ER given Cardizem 5mg IV and Cardizem drip titrated from 5mg down to 2.5 with HR from 130's to 70's. Closely monitor HR, may need to consider additional agent Currently rate controlled [employer] Qualified recommendations noted No anticoagulation for now but this may be addressed later (4) Sick sinus syndrome: (5) History of pacemaker: S/P Pacemaker in 04/2019 (6) HTN (hypertension): Was hypertensive in ER improved while on cardizem drip Continue to hold home oral losartan for now especially with suspected sepsis Will monitor BP and resume appropriately (7) Abnormal CT scan, head: CTA Head: Incidental note is made of multiple lytic changes within the skull suggesting possible myelomatous type change (8) Chronic hyponatremia: Na: 134 this morning Hyponatremia appears chronic from review of labs over the past year Monitor BMP Also hypokalemic, hypomagnesemic and hypophosphatemic this morning Will replete these and monitor Monitor volume status to avoid fluid overload (9) Hypothyroidism: TSH 1.27 Continue iv levothyroxine for now while NPO DVT Prophylaxis -SCDs DaughterErika. DNR/DNI as per discussion with pt's daughter and per pt's advanced directive Will consider Palliative consult if no significant change Admission and Anticipated Discharge Date Admission Date: December 09, 2019 Subjective Patient is seen and examined. Patient has been afebrile since yesterday afternoon. Currently awake today. Has eyes open and occasionally tracks but does not follow commands. Blood cultures negative. Review of Systems Review of Systems: Unobtainable due to reduced consciousness Physical Exam Constitutional: no acute distress Awake but not responsive Eyes: Eyes open and occasionally tracks Respiratory: normal respiratory effort, lungs clear to auscultation Cardiovascular: Irregularly irregular S1-2, no pedal edema Gastrointestinal (Abdomen): normal bowel sounds, soft, nontender, no hepatos plenomegaly Musculoskeletal: Extremities: no cyanosis Neurologic: Eyes open, Not responding to name call, occasionally tracks, Does not follow commands Some withdrawal to pain Results & Data Results & Data ([facility]) Vital Signs (Past 12 Hours) Vital Signs Temp Pulse Resp BP Pulse Ox 12/10/19 08:04 36.6 C 95 H 18 147/86 H 95 12/10/19 03:10 36.9 C 107 H 16 129/93 97 12/09/19 23:05 37.3 C 93 H 16 134/85 94 Laboratory Results Laboratory Results - last 24 hr 12/09/19 12/09/19 12/09/19 10:26 12:13 13:00 WBC RBC Hgb Hct MCV MCH MCHC RDW Std Deviation RDW Coeff of Del Plt Count MPV Immature Gran % (Auto) Neut % (Auto) Lymph % (Auto) [place] % (Auto) Eos % (Auto) Baso % (Auto) Neut # (Auto) Lymph # (Auto) [place] # (Auto) Eos # (Auto) Baso # (Auto) Immature Gran # (Auto) Sodium Potassium Chloride Carbon Dioxide Anion Gap BUN Creatinine Est Cr Clr Drug Dosing Est GFR ( Amer) Est GFR (Non-Af Amer) BUN/Creatinine Ratio Glucose Lactate 2.4 H* Calcium Phosphorus Magnesium Total Bilirubin AST ALT Alkaline Phosphatase Total Protein Albumin Globulin Albumin/Globulin Ratio Procalcitonin 0.27 COVID-19 PCR NEGATIVE 12/09/19 12/10/19 12/10/19 16:34 07:03 07:03 WBC 16.49 H RBC 3.99 L Hgb 12.6 Hct 37.2 MCV 93.2 MCH 31.6 MCHC 33.9 RDW Std Deviation 49.7 H RDW Coeff of Del 14.6 H Plt Count 114 L MPV 11.3 H Immature Gran % (Auto) 0.4 Neut % (Auto) 87.0 Lymph % (Auto) 6.8 [place] % (Auto) 5.6 Eos % (Auto) 0.1 Baso % (Auto) 0.1 Neut # (Auto) 14.36 H Lymph # (Auto) 1.12 L [place] # (Auto) 0.93 H Eos # (Auto) 0.01 Baso # (Auto) 0.01 Immature Gran # (Auto) 0.06 H Sodium 134 L Potassium 3.1 L D Chloride 103 Carbon Dioxide 23 Anion Gap 8.0 BUN 16 Creatinine 0.66 Est Cr Clr Drug Dosing 64.3 Est GFR ( Amer) 94.7 Est GFR (Non-Af Amer) 81.7 BUN/Creatinine Ratio 24.6 H Glucose 88 Lactate 1.6 Calcium 8.5 Phosphorus 2.3 L Magnesium 1.7 L Total Bilirubin 1.9 H D AST 46 H ALT 36 Alkaline Phosphatase 73 Total Protein 6.2 L Albumin 3.0 L Globulin 3.2 Albumin/Globulin Ratio 0.9 Procalcitonin COVID-19 PCR
[2019-12-10] MEDS ORDERED: D5W AND LACTATED RINGERS 1,000 ML IV SCH ×2 (10:45→14:00)
--- NOTE | 2019-12-10 10:48 | Cardiology Progress Note ---
Date of Service December 10, 2019 Assessment & Plan (1) Stroke: Patient is an 84-year-old female with history of persistent atrial fibrillation, sick sinus syndrome with tachybradycardia syndrome prior pacemaker insertion. Her history is notable for prior TIA and high chads vas 2 score however is had complications of intra-abdominal and intracranial bleeding while on warfarin. Patient deemed relatively high risk anticoagulation candidate and is been maintained on antiplatelet therapy. Should patient make meaningful recovery may readdress anticoagulation issues but likely not an option. We will follow along during hospital stay (2) Persistent atrial fibrillation: Atrial fibrillation elevated on initial presentation likely driven by acute event. Heart rates better controlled this morning however trending somewhat higher. Patient not cognizant able to take oral medications we will provide low-dose IV beta-carmine for rate control while allowing permissive hypertension Will increase dosing to 5 mg IV every 6 as patient remains n.p.o. (3) Hypertension: (4) History of pacemaker: Device functioning appropriately Subjective Patient seen and examined, chart, medications, telemetry reviewed. Patient slightly more alert today eyes open but without focal follow commands No verbalization Physical Exam ENMT: external ear and nose normal, oropharynx normal Neck: trachea midline, no thyromegaly Respiratory: Auscultation: + diminished lung sounds Cardiovascular: Rate/Rhythm: + irregularly irregular Heart Sounds: normal S1, normal S2 and + murmur (Grade 1/6 systolic murmur at apex) Palpation: normal PMI Vessels: normal carotid upstroke; no JVD, no carotid bruit and no abdominal aortic bruit Extremities: normal capillary refill; no edema Chest (Breasts): Chest: + pacemaker (No surrounding irritation or tenderness) Gastrointestinal (Abdomen): normal bowel sounds, soft, nontender, no hepatosplenomegaly Neurologic: Awake eyes open but without focal following commands during exam Results & Data Vital Signs (Past 12 Hours) Vital Signs Temp Pulse Resp BP Pulse Ox 12/10/19 08:04 36.6 C 95 H 18 147/86 H 95 12/10/19 03:10 36.9 C 107 H 16 129/93 97 12/09/19 23:05 37.3 C 93 H 16 134/85 94 Laboratory Results Laboratory Results - last 24 hr 12/09/19 12/09/19 12/09/19 10:26 12:13 13:00 WBC RBC Hgb Hct MCV MCH MCHC RDW Std Deviation RDW Coeff of Del Plt Count MPV Immature Gran % (Auto) Neut % (Auto) Lymph % (Auto) [place] % (Auto) Eos % (Auto) Baso % (Auto) Neut # (Auto) Lymph # (Auto) [place] # (Auto) Eos # (Auto) Baso # (Auto) Immature Gran # (Auto) Sodium Potassium Chloride Carbon Dioxide Anion Gap BUN Creatinine Est Cr Clr Drug Dosing Est GFR ( Amer) Est GFR (Non-Af Amer) BUN/Creatinine Ratio Glucose Lactate 2.4 H* Calcium Phosphorus Magnesium Total Bilirubin AST ALT Alkaline Phosphatase Total Protein Albumin Globulin Albumin/Globulin Ratio Procalcitonin 0.27 COVID-19 PCR NEGATIVE 12/09/19 12/10/19 12/10/19 16:34 07:03 07:03 WBC 16.49 H RBC 3.99 L Hgb 12.6 Hct 37.2 MCV 93.2 MCH 31.6 MCHC 33.9 RDW Std Deviation 49.7 H RDW Coeff of Del 14.6 H Plt Count 114 L MPV 11.3 H Immature Gran % (Auto) 0.4 Neut % (Auto) 87.0 Lymph % (Auto) 6.8 [place] % (Auto) 5.6 Eos % (Auto) 0.1 Baso % (Auto) 0.1 Neut # (Auto) 14.36 H Lymph # (Auto) 1.12 L [place] # (Auto) 0.93 H Eos # (Auto) 0.01 Baso # (Auto) 0.01 Immature Gran # (Auto) 0.06 H Sodium 134 L Potassium 3.1 L D Chloride 103 Carbon Dioxide 23 Anion Gap 8.0 BUN 16 Creatinine 0.66 Est Cr Clr Drug Dosing 64.3 Est GFR ( Amer) 94.7 Est GFR (Non-Af Amer) 81.7 BUN/Creatinine Ratio 24.6 H Glucose 88 Lactate 1.6 Calcium 8.5 Phosphorus 2.3 L Magnesium 1.7 L Total Bilirubin 1.9 H D AST 46 H ALT 36 Alkaline Phosphatase 73 Total Protein 6.2 L Albumin 3.0 L Globulin 3.2 Albumin/Globulin Ratio 0.9 Procalcitonin COVID-19 PCR (1) Hypertension Hypertension type: unspecified Qualified Code(s): I10 - Essential (primary) hypertension
[2019-12-10] MEDS ORDERED: POTASSIUM PHOSPHATE 40 MMOL in SODIUM CHLORIDE 0.9% 1000ML 1,000 ML IV SCH (11:00)
[2019-12-10] MEDS: MAGNESIUM SULFATE / D5W 1 GM/100 ML BAG IV SCH ×2 (11:23→12:58)
[2019-12-10] MEDS ORDERED: POTASSIUM PHOSPHATE IV SCH (14:30)
[2019-12-10] MEDS ORDERED: D5W AND NSS IV SCH (14:30)
--- NOTE | 2019-12-10 16:45 | Communication Note ---
Date of Service: December 10, 2019 I saw Mrs. Croft again today in the presence of her daughter. 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 This may simply be a case of a negative early M RI infarction. She is certainly set up for this with her atrial fibrillation not treated with anticoagulation other than antiplatelet agents which do little in the setting but the story is still odd and the negative imaging study is bothersome I am going to order another MRI for tomorrow without contrast as her pacemaker is apparently MRI friendly having function through the first exam Dr. Nicholas will be taking over the service tomorrow and I am going to ask him to continue to follow the patient until he feels that the diagnosis is been established and neurology can withdraw Shravan Montilla MD
--- NOTE | 2019-12-10 16:49 | Electroencephalogram ---
EEG Procedure Note Date of Service December 10, 2019 Start / End Times Start Time: 01 30 End Time: 50 Referring Physician Shravan Montilla MD History Multifocal neurologic deficits with negative MRI for acute CVA question unwitnessed seizure with post ictal state Home Medication List Home Medications Medication Instructions Recorded Confirmed Type acetaminophen [Tylenol] 650 mg PO QID PRN 05/11/19 12/08/19 History aspirin [Aspir-81] 81 mg PO DAILY 05/11/19 12/08/19 History calcium carbonate-vitamin D3 1 tab PO BID 05/11/19 12/08/19 History [Calcium 500 + D] hydroxyzine HCl 10 mg PO TID PRN 05/11/19 12/08/19 History levothyroxine 100 mcg PO DAILY 05/11/19 12/08/19 History losartan [Cozaar] 25 mg PO HS 05/11/19 12/08/19 History magnesium oxide [MagOx] 400 mg PO DAILY 05/11/19 12/08/19 History mirtazapine [Remeron] 15 mg PO HS 05/11/19 12/08/19 History sennosides-docusate sodium [Senna 1 tab PO DAILY 05/11/19 12/08/19 History Plus] triamcinolone acetonide 1 applic TOPICAL UD 05/11/19 12/08/19 History metoprolol succinate 75 mg PO DAILY 12/08/19 12/08/19 History Inpatient Medication List Levothyroxine Sodium 50 mcg/ (Syringe) 2.5 mls @ 2 mls/min IV DAILY@0900 DONNA Stop: 01/08/20 08:59 Last Admin: 12/10/19 09:18 Dose: 2 mls/min Documented by: [id number] Admin: 12/09/19 08:19 Dose: 2 mls/min Documented by: [id number] Acetaminophen ([facility]) 1,000 mg in 100 mls @ 400 mls/hr IV Q8H PRN PRN Reason: Pain or Fever Stop: 12/11/19 23:04 Last Infusion: 12/09/19 18:55 Dose: 0 mls/hr Documented by: [id number] Admin: 12/09/19 18:35 Dose: 400 mls/hr Documented by: [id number] Infusion: 12/09/19 07:39 Dose: 0 mls/hr Documented by: [id number] Admin: 12/09/19 07:16 Dose: 400 mls/hr Documented by: [id number] Potassium Phosphate 30 mmol/ (Dextrose/Sodium Chloride) 1,010 mls @ 60 mls/hr IV TODAY@1430 DONNA Stop: 12/11/19 07:19 Last Admin: 12/10/19 14:27 Dose: 60 mls/hr Documented by: [id number] Ioversol (Optiray 320 125ml) 115 ml IV ONCE PRN PRN Reason: Interaction Checking Stop: 12/12/19 20:07 Last Admin: 12/08/19 20:08 Dose: 115 ml Documented by: [id number] Metoprolol Tartrate (Lopressor) 5 mg IV Q6 DONNA Stop: 01/09/20 11:59 Last Admin: 12/10/19 11:24 Dose: 5 mg Documented by: [id number] Discontinued Medications Aspirin (Aspirin) 300 mg PA ONE ONE Stop: 12/08/19 23:01 Last Admin: 12/09/19 00:06 Dose: 300 mg Documented by: [id number] Diltiazem HCl (Cardizem) 5 mg IV NOW STA Stop: 12/08/19 20:25 Last Admin: 12/08/19 20:51 Dose: 5 mg Documented by: [id number] Cosigned by: [id number] Sodium Chloride (Nss 1000ml) 1,000 mls @ 50 mls/hr IV .Q20H DONNA Stop: 01/07/20 19:59 Last Infusion: 12/09/19 07:39 Dose: 0 mls/hr Documented by: [id number] Admin: 12/08/19 20:51 Dose: 50 mls/hr Documented by: [id number] Diltiazem HCl 125 mg/ Dextrose 125 mls @ 5 mls/hr IV .Q24H DONNA; Protocol Stop: 01/07/20 20:29 Last Titration: 12/09/19 07:39 Dose: 0 mg/hr, 0 mls/hr Documented by: [id number] Cosigned by: [id number] Titration: 12/08/19 22:29 Dose: 0 mg/hr, 0 mls/hr Documented by: [id number] Cosigned by: [id number] Titration: 12/08/19 21:07 Dose: 2.5 mg/hr, 2.5 mls/hr Documented by: [id number] Cosigned by: [id number] Admin: 12/08/19 20:51 Dose: 5 mg/hr, 5 mls/hr Documented by: [id number] Cosigned by: [id number] Sodium Chloride (Nss 1000ml) 1,000 mls @ 75 mls/hr IV .[id number] [facility] Stop: 01/07/20 23:04 Last Infusion: 12/10/19 11:15 Dose: 0 mls/hr Documented by: [id number] Admin: 12/10/19 01:07 Dose: 75 mls/hr Documented by: [id number] Infusion: 12/10/19 01:07 Dose: 75 mls/hr Documented by: [id number] Infusion: 12/09/19 16:26 Dose: 75 mls/hr Documented by: [id number] Infusion: 12/09/19 14:21 Dose: 0 mls/hr Documented by: [id number] Admin: 12/09/19 13:06 Dose: 75 mls/hr Documented by: [id number] Infusion: 12/09/19 13:06 Dose: 75 mls/hr Documented by: [id number] Admin: 12/09/19 12:51 Dose: Not Given Documented by: [id number] Infusion: 12/09/19 12:00 Dose: 75 mls/hr Documented by: [id number] Infusion: 12/09/19 10:35 Dose: 0 mls/hr Documented by: [id number] Admin: 12/09/19 00:05 Dose: 75 mls/hr Documented by: [id number] Cefepime HCl 1,000 mg/ Syringe 11.3 mls @ 5.5 mls/min IV Q8H [facility]; Protocol Stop: 12/11/19 09:29 Last Admin: 12/10/19 09:10 Dose: 5.5 mls/min Documented by: [id number] Admin: 12/10/19 02:23 Dose: 5.5 mls/min Documented by: [id number] Admin: 12/09/19 18:35 Dose: 5.5 mls/min Documented by: [id number] Admin: 12/09/19 10:06 Dose: 5.5 mls/min Documented by: [id number] Vancomycin HCl 1,500 mg/ (Sodium Chloride) 530 mls @ 200 mls/hr IV NOW ONE Stop: 12/09/19 12:38 Last Infusion: 12/09/19 14:22 Dose: 0 mls/hr Documented by: [id number] Infusion: 12/09/19 12:00 Dose: 200 mls/hr Documented by: [id number] Infusion: 12/09/19 10:35 Dose: 0 mls/hr Documented by: [id number] Admin: 12/09/19 10:05 Dose: 200 mls/hr Documented by: [id number] Vancomycin HCl 750 mg/ Sodium (Chloride) 265 mls @ 125 mls/hr IV Q12H [facility] Stop: 12/11/19 14:00 Last Infusion: 12/10/19 10:03 Dose: 0 mls/hr Documented by: [id number] Admin: 12/10/19 09:12 Dose: 125 mls/hr Documented by: [id number] Infusion: 12/09/19 23:50 Dose: 0 mls/hr Documented by: [id number] Admin: 12/09/19 21:42 Dose: 125 mls/hr Documented by: [id number] Sodium Chloride (Nss 1000ml) 1,000 mls @ 999 mls/hr IV .Q1H1M [facility] Stop: 12/09/19 15:58 Last Infusion: 12/09/19 16:27 Dose: 0 mls/hr Documented by: [id number] Admin: 12/09/19 15:23 Dose: 999 mls/hr Documented by: [id number] Infusion: 12/09/19 15:22 Dose: 999 mls/hr Documented by: [id number] Admin: 12/09/19 14:21 Dose: 999 mls/hr Documented by: [id number] Sodium Chloride (Nss) 500 mls @ 500 mls/hr IV .Q1H [facility] Stop: 12/10/19 00:44 Last Infusion: 12/10/19 01:01 Dose: 0 mls/hr Documented by: [id number] Admin: 12/10/19 00:01 Dose: 500 mls/hr Documented by: [id number] Magnesium Sulfate/Dextrose (Magnesium Sulfate / D5w) 1 gm in 100 mls @ 50 mls/hr IV Q2H [facility] Stop: 12/10/19 14:44 Last Infusion: 12/10/19 14:50 Dose: 0 mls/hr Documented by: [id number] Admin: 12/10/19 12:58 Dose: 50 mls/hr Documented by: [id number] Infusion: 12/10/19 12:58 Dose: 50 mls/hr Documented by: [id number] Admin: 12/10/19 11:23 Dose: 50 mls/hr Documented by: [id number] Dextrose/Lactated Ringer's (D5w And Lactated Ringers) 1,000 mls @ 60 mls/hr IV .[id number] [facility] Stop: 01/09/20 10:44 Last Admin: 12/10/19 11:14 Dose: Not Given Documented by: [id number] Potassium Phosphate 40 mmol/ (Sodium Chloride) 1,013.3333 mls @ 100 mls/hr IV TODAY@1100 [facility] Stop: 12/10/19 21:07 Last Infusion: 12/10/19 14:28 Dose: 0 mls/hr Documented by: [id number] Admin: 12/10/19 11:22 Dose: 100 mls/hr Documented by: [id number] Metoprolol Tartrate (Lopressor) 2.5 mg IV Q6 [facility] Stop: 01/08/20 11:59 Last Admin: 12/10/19 05:30 Dose: 2.5 mg Documented by: [id number] Admin: 12/09/19 23:08 Dose: 2.5 mg Documented by: [id number] Admin: 12/09/19 18:35 Dose: 2.5 mg Documented by: [id number] Admin: 12/09/19 13:05 Dose: 2.5 mg Documented by: [id number] Miscellaneous () 1 ea N/A NOW [facility] Stop: 12/08/19 20:25 Last Admin: 12/08/19 20:51 Dose: 1 ea Documented by: [id number] Description This is a 21 electrode EEG with a single channel dedicated to limited EKG. The electrodes were placed in accordance with the International 10-20 system. The EEG was done as a bedside recording is of good technical quality. Simultaneous video analysis of patient movement behavior was obtained. Photic stimulation was performed During apparent clinical wakefulness there is evidence for background rhythm in the upper theta range of about 8 Hz and maximum frequency and of up to 20 V a maximum amplitude. Central symmetrical mid to lower frequency theta activity of about 6 to 7 Hz maximum frequency is seen in beta activity seen bifrontally. Occasional waveforms in the delta range are also present but no rhythmic theta delta activity is seen and no potentially epileptiform discharges are evident. Photic stimulation provokes no significant alteration in the EEG Interpretation This EEG is mildly diffusely abnormal without any focal features and without any potentially epileptogenic activity Clinical Correlation Study is consistent with a nonspecific generalized mild encephalopathy without focal features and does not indicate evidence for potentially epileptogenic foci or a pattern of nonconvulsive status epilepticus Shravan Montilla MD
[2019-12-10] MEDS ORDERED: CONSULT PHARMACY STA (18:07)
[2019-12-10] MEDS ORDERED: VANCOMYCIN CONSULT ACTIVE PRN (18:16)
[2019-12-10] MEDS ORDERED: ACYCLOVIR CONSULT ACTIVE PRN (18:16)
[2019-12-10] MEDS ORDERED: VANCOMYCIN HCL 1,500 MG in SODIUM CHLORIDE 0.9% 500 ML IV ONE (18:45)
--- NOTE | 2019-12-10 19:19 | Pharmacy Report ---
Pharmacy Abx Initial Consult - Date of Service December 10, 2019 - Pharmacy Dosing Scope Date of Consult: 12/10/19 Consultation requested by: Dr. Esteban Pharmacy is consulted to initiate vancomycin and acyclovir IV dosing therapy, order appropriate labs and adjust drug dose/frequency. - Subjective The patient is a 84 year old F admitted on 12/09/19 12:21. - Objective Height: 5 ft 9 in Weight: 63.1 kg Vital Signs (Past 12hrs): Vital Signs Temp Pulse Pulse Resp BP BP Pulse Ox 12/10/19 18:27 84 145/86 H 12/10/19 16:00 73 12/10/19 15:29 36.4 C L 72 22 143/90 H 97 12/10/19 11:30 148/97 H 12/10/19 11:25 36.5 C 80 20 168/114 H 96 12/10/19 11:24 89 168/114 H 12/10/19 08:04 36.6 C 95 H 18 147/86 H 95 Lab Results (24hrs): Laboratory Tests (24 Hours) 12/10/19 12/10/19 07:03 07:03 WBC 16.49 H Neut # (Auto) 14.36 H Creatinine 0.66 Est Cr Clr Drug Dosing 64.3 - Assessment & Plan Assessment 84 year old F presented on 12/07 with stroke-like symptoms. She is ordered empiric antibiotic therapy with vancomycin, acyclovir, ampicillin, and ceftriaxone for persistent leukocytosis and fever - differential to include meningoencephalitis. WBC increased from yesterday (13 -> 16 k), Tmax yesterday of 39.6 - has been afebrile over past 24 hours. Blood/urine cultures obtained and pending. LP ordered. Plan Vancomycin IV * Loading dose: 1500 mg (25 mg/kg) IV x 1 * Patient meets criteria for vancomycin AUC dosing nomogram * 750 mg IV q12h * AUC/LEANDRA is the preferred PK/PD target for vancomycin * Target AUC/LEANDRA = 400-600 * AUC guided dosing is effective and associated with decreased risk of nephrotoxicity Acyclovir IV * 630 mg (10 mg/kg) IV q8h - appropriate for empiric treatment of possible meningitis Ampicillin IV * 2 g IV q4h - appropriate for empiric treatment of possible meningitis Ceftriaxone IV * 2 g IV q12h - appropriate for empiric treatment of possible meningitis Pharmacy will continue to follow and will adjust dose/frequency as necessary. Thank you.
--- NOTE | 2019-12-10 20:41 | Magnetic Resonance Report ---
MRI OF THE BRAIN WITHOUT IV CONTRAST CLINICAL HISTORY: Change in mental status. COMPARISON STUDY: MRI of the brain dated 12/09/2019. CT of the brain dated 12/08/2019. TECHNIQUE: MRI of the brain was performed utilizing various T1 and T2-weighted sequences in the axial , sagittal, and coronal planes. IV contrast was not administered for this examination. FINDINGS: Brain parenchyma: There is age-related involutional change noting moderate confluent subcortical and periventricular microangiopathic disease. There is no hemorrhage or mass effect. There is no restrict ed diffusion to suggest acute ischemia. Shankar-white matter differentiation is preserved. No extra-axia l fluid collection is seen. A chronic lacunar infarct is noted in the right basal ganglia. The cerebe llar tonsils are normal in configuration. Ventricles, sulci, and cisterns: Prominent secondary to involutional change. Pituitary and sella: Unremarkable. Intracranial vasculature: Normal flow voids are maintained at the skull base. Orbits: The bony orbits are grossly intact. Orbital contents are normal in appearance noting bilatera l ocular lens implants. Sinuses and mastoids: There is trace fluid in the sphenoid sinuses. The remaining paranasal sinuses a re clear. There is a small left mastoid effusion. Calvarium: Unremarkable. Cervical cord: Partially visualized cervical spinal cord is normal in morphology and signal intensity . IMPRESSION: No acute intracranial abnormality. ACT 112: Negative or not required by law. Electronically signed by: Edgar Wen M.D. 12/10/2019 8:39 PM
[2019-12-10] MEDS ORDERED: CEFEPIME 2,000 MG in SYRINGE 7.5 ML IV SCH (21:00)
[2019-12-10] MEDS: cefTRIAXone SODIUM 2,000 MG in DEXTROSE 5% 50 ML IV SCH (22:33)
[2019-12-10] MEDS: ACYCLOVIR SOD IV SCH (22:34)
[2019-12-10] MEDS: DEXTROSE 5% IV SCH (22:34)
[2019-12-10] MEDS: AMPICILLIN 2,000 MG in SODIUM CHLOR 0.9% AD-VAN 100 ML IV SCH (22:41)
[2019-12-11] MEDS: METOPROLOL TARTRATE 1 MG/ML VIAL IV SCH ×5 (00:06→20:57)
[2019-12-11] MEDS: AMPICILLIN 2,000 MG in SODIUM CHLOR 0.9% AD-VAN 100 ML IV SCH ×6 (00:11→20:00)
[2019-12-11] MEDS: ACYCLOVIR SOD IV SCH ×3 (05:02→20:57)
[2019-12-11] MEDS: DEXTROSE 5% IV SCH ×3 (05:02→20:57)
--- NOTE | 2019-12-11 06:26 | Communication Note ---
Date of Service: December 11, 2019 Dr. Esteban and I discussed his case last evening and around 6:00. Florencia and spiked a fever and have him placed on an biotics and the question arose more appropriately about the possibility of a meningoencephalitis. The onset of the neurologic condition was ill-defined in the fact that the only witness was for her who suffers from advanced Alzheimer's disease and is possible that this had emerged over several days. Neurologic examination is consistent with multifocal areas of dysfunction in the right hemisphere and is on the left and EEGs have shown no evidence for seizure activity and only mild to moderate generalized slowing. 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 Plan now is to proceed with lumbar puncture. Acyclovir was added last night after we discussed the case to provide additional antiviral coverage and I thought the LP should be delayed until we were absolutely certain second MRI would not show mass-effect particular in the right hemisphere where clinical findings suggested there was a significant degree of dysfunction this is clearly not the case and I think lumbar puncture can be done without any fear of inducing herniation According to my last discussion with Dr. Esteban the family was undecided about how aggressive we should be specifically concerned of the lumbar puncture. I do not know at this point if they would redo the procedure but I think it should be done in interim I would simply continue broad-spectrum antibiotic coverage Dr. Nicholas will be following up on her later this afternoon as I am off service at this point Shravan Montilla MD l
[2019-12-11 06:28] LABS: Basophils # (auto) 0.01 K/uL (0-0.2); Basophils % (auto) 0.1 %; Eosinophils # (auto) 0.03 K/uL (0-0.5); Eosinophils % (auto) 0.3 %; Hematocrit (blood only) 41.2 % (37-47); Hemoglobin 13.7 g/dL (12.0-16.0); Immature Granulocytes # (auto) 0.03 K/uL (0.00-0.02); Immature Granulocytes % (auto) 0.3 %; Lymphocytes # (auto) 1.15 K/uL (1.2-3.4); Lymphocytes % (auto) 10.4 %; Mean Corpuscular Hemoglobin 31.4 pg (25-34); Mean Corpuscular Hgb Conc 33.3 g/dL (32-36); Mean Corpuscular Volume 94.5 fL (80-100); Mean Platelet Volume 11.4 fL (7.4-10.4); Monocytes % (auto) 6.3 %; Neutrophils # (auto) 9.12 K/uL (1.4-6.5); Neutrophils % (auto) 82.6 %; Platelet Count 119 K/uL (130-400); RDW Coefficient of Variation 14.4 % (11.5-14.5); RDW Standard Deviation 49.4 fL (36.4-46.3); Red Blood Count 4.36 M/uL (4.2-5.4); White Blood Count 11.04 K/uL (4.8-10.8)
[2019-12-11 07:09] LABS: Albumin Globulin Ratio 0.8 (0.9-2); Albumin Level 2.8 gm/dl (3.4-5.0); BUN Creatinine Ratio 15.8 (10-20); Bilirubin,Total 1.1 mg/dl (0.2-1); Calcium 8.3 mg/dl (8.5-10.1); Creatinine Clr Calc Pharmacy 79.5 ml/min; Est GFR (African American) 100.5; Est GFR (Non-African American) 86.7; Globulin 3.4 gm/dl (2.5-4.0); Potassium 3.2 mmol/L (3.5-5.1); Total Protein 6.2 gm/dl (6.4-8.2)
[2019-12-11] MEDS: D5W AND NSS 1,000 ML IV SCH (08:42)
[2019-12-11 09:01] LABS: Magnesium 1.9 mg/dl (1.8-2.4); Phosphorus 2.8 mg/dl (2.5-4.9)
[2019-12-11] MEDS: LEVOTHYROXINE SODIUM 50 MCG in SYRINGE 0 ML IV SCH (09:07)
[2019-12-11] MEDS: cefTRIAXone SODIUM 2,000 MG in DEXTROSE 5% 50 ML IV SCH ×2 (09:07→20:56)
[2019-12-11] MEDS: POTASSIUM CHLORIDE / WTR 10 MEQ/100 ML PLCT IV SCH ×4 (09:56→15:39)
[2019-12-11] MEDS ORDERED: HydrALAZINE HCL 20 MG/ML VIAL IV PRN (10:03)
--- NOTE | 2019-12-11 10:07 | Hospitalist Progress Note ---
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 Na: 133, otherwise no significant electrolyte abnormality, UA unremarkable CT HEAD:No acute intracranial abnormality. CTA HEAD:No significant stenosis, occlusion, or aneurysm within the [place]. 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 Incidental note is made of multiple lytic changes within the skull suggesting possible myelomatous type change. CTA NECK:1. Considerable plaque formation bilaterally. 2. 30-40% narrowing of the carotid bifurcations and proximal internal carotid arteries bilaterally. 3. 50% narrowing of the mid and distal right vertebral artery with no evidence for a high-grade stenotic process of the vertebral basilar system. Got Aspirin A1c is 5.8 MRI brain does not show any acute process/CVA Repeat MRI is negative Patient became febrile on 12/09/19 Sepsis, unclear source Labs revised initial report of Urine culture GNR to no growth, reporting previous as erroneous Elevated lactate now normalized with IVF Blood cultures negative so far COVID is negative Altered mental status is likely from Possible/Suspected) MRI negative stroke due to cerebral thromboembolism in the setting of non anticoagulated atrial fibrillation vs meningoencephalitis Will follow neuro recommendations Family yet to decide about LP Continue empiric therapy with antibiotics and antiviral Continue aspiration precautions NPO for now Will get INTERACTIVE DESIGNER when more cooperative (3) Atrial fibrillation with RVR: Pt with h/o paroxysmal atrial fibrillation. H/O afib s/p cardioversion in 2017 with recurrence Last outpatient pacer interrogation in 09/2019 showed a-fib since 06/2019 Pt not on anticoagulation secondary to bleeding risk and fall Risk. H/O spontaneous intra-abdominal hemorrhage with unknown source in 2018 while on Couamdin, H/O traumatic brain hemorrhage secondary to fall in 07/2018 and off coumadin since. In ER given Cardizem 5mg IV and Cardizem drip titrated from 5mg down to 2.5 with HR from 130's to 70's. Closely monitor HR, may need to consider additional agent Currently rate controlled Service Tech recommendations noted No anticoagulation for now but this may be addressed later (4) Sick sinus syndrome: (5) History of pacemaker: S/P Pacemaker in 04/2019 (6) HTN (hypertension): Was hypertensive in ER improved while on cardizem drip Still hypertensive IV hydralazine prn for now while NPO Continue to hold home oral losartan for now Will monitor BP and resume appropriately (7) Abnormal CT scan, head: CTA Head: Incidental note is made of multiple lytic changes within the skull suggesting possible myelomatous type change (8) Chronic hyponatremia: Na: 136 this morning Hyponatremia appears chronic from review of labs over the past year Monitor BMP Also hypokalemic, hypomagnesemic and hypophosphatemic yesterday Repleted Still hypokalemic this AM. Will replete and monitor Monitor volume status to avoid fluid overload (9) Hypothyroidism: TSH 1.27 Continue iv levothyroxine for now while NPO DVT Prophylaxis -SCDs Daughter, Erika. DNR/DNI as per discussion with pt's daughter and per pt's advanced directive Will consider Palliative consult if no significant change Admission and Anticipated Discharge Date Admission Date: December 09, 2019 Subjective Patient seen and examined. Patient appears more alert today. Tracks more Not answering questions. Occasionally followed commands such as move your feet or squeeze hands during evaluation. No events overnight Review of Systems Review of Systems: Unobtainable due to cognitive status Physical Exam Constitutional: no acute distress Awake, alert Eyes: PERRL, conjunctivae normal, anicteric sclerae Respiratory: normal respiratory effort, lungs clear to auscultation Cardiovascular: Irregularly irregular S1-2, no pedal edema Gastrointestinal (Abdomen): normal bowel sounds, soft, nontender, no hepatosplenomegaly Neurologic: Alert, not responding to questions, occasionally followed simple commands such as move feet/squeeze hands. Tracks Results & Data Results & Data ([facility]) Vital Signs (Past 12 Hours) Vital Signs Temp Pulse Pulse Resp BP BP Pulse Ox 12/11/19 07:15 36.3 C L 95 H 19 170/91 H 96 12/11/19 04:40 36.3 C L 93 H 19 162/93 H 97 12/11/19 00:06 89 143/84 H 12/10/19 23:30 36.5 C 89 16 143/84 H 96 Laboratory Results Laboratory Results - last 24 hr 12/11/19 12/11/19 12/11/19 05:48 05:48 05:48 WBC 11.04 H RBC 4.36 Hgb 13.7 Hct 41.2 MCV 94.5 MCH 31.4 MCHC 33.3 RDW Std Deviation 49.4 H RDW Coeff of Del 14.4 Plt Count 119 L MPV 11.4 H Immature Gran % (Auto) 0.3 Neut % (Auto) 82.6 Lymph % (Auto) 10.4 [place] % (Auto) 6.3 Eos % (Auto) 0.3 Baso % (Auto) 0.1 Neut # (Auto) 9.12 H Lymph # (Auto) 1.15 L [place] # (Auto) 0.70 H Eos # (Auto) 0.03 Baso # (Auto) 0.01 Immature Gran # (Auto) 0.03 H Sodium 136 Potassium 3.2 L Chloride 104 Carbon Dioxide 25 Anion Gap 7.0 BUN 9 D Creatinine 0.55 L Est Cr Clr Drug Dosing 79.5 Est GFR ( Amer) 100.5 Est GFR (Non-Af Amer) 86.7 BUN/Creatinine Ratio 15.8 Glucose 125 H Calcium 8.3 L Phosphorus 2.8 Magnesium 1.9 Total Bilirubin 1.1 H AST 35 ALT 34 Alkaline Phosphatase 74 Total Protein 6.2 L Albumin 2.8 L Globulin 3.4 Albumin/Globulin Ratio 0.8 L
--- NOTE | 2019-12-11 10:40 | Cardiology Progress Note ---
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 Her history is notable for prior TIA and high chads vas 2 score however is had complications of intra-abdominal and intracranial bleeding while on warfarin. Patient deemed relatively high risk anticoagulation candidate and is been maintained on antiplatelet therapy. Should patient make meaningful recovery may readdress anticoagulation issues but likely not an option. We will follow along during hospital stay (2) Persistent atrial fibrillation: Atrial fibrillation elevated on initial presentation likely driven by acute event. Heart rates better controlled this morning however trending somewhat higher. Patient not cognizant able to take oral medications we will provide low-dose IV beta-carmine for rate control while allowing permissive hypertension Plan continue IV metoprolol 5 mg every 6 hours until able to take oral (3) Hypertension: (4) History of pacemaker: Device functioning appropriately Subjective Patient seen and examined, chart, medications, telemetry reviewed. Patient awake and will follow some commands no distinct verbalization No focal deficit grossly Remains in atrial fibrillation with better rate control on current therapy Physical Exam ENMT: external ear and nose normal, oropharynx normal Neck: trachea midline, no thyromegaly Respiratory: Auscultation: + diminished lung sounds Cardiovascular: Rate/Rhythm: + irregularly irregular Heart Sounds: normal S1, normal S2 and + murmur (Grade 1/6 systolic murmur at apex) Palpation: normal PMI Vessels: normal carotid upstroke; no JVD, no carotid bruit and no abdominal aortic bruit Extremities: normal capillary refill; no edema Chest (Breasts): Chest: + pacemaker (No surrounding irritation or tenderness) Gastrointestinal (Abdomen): normal bowel sounds, soft, nontender, no hepatosplenomegaly Results & Data Vital Signs (Past 12 Hours) Vital Signs Temp Pulse Pulse Resp BP BP Pulse Ox 12/11/19 07:15 36.3 C L 95 H 19 170/91 H 96 12/11/19 04:40 36.3 C L 93 H 19 162/93 H 97 12/11/19 00:06 89 143/84 H 12/10/19 23:30 36.5 C 89 16 143/84 H 96 (1) Hypertension Hypertension type: unspecified Qualified Code(s): I10 - Essential (primary) hypertension
[2019-12-11] MEDS: VANCOMYCIN HCL 750 MG in SODIUM CHLORIDE 0.9% 250 ML IV SCH (12:12)
--- NOTE | 2019-12-11 20:38 | Fluoroscopy Report ---
FL lumbar puncture diagnostic CLINICAL HISTORY: Rule out meningoencephalitis change in mental status COMPARISON STUDY: None FLUOROSCOPY TIME: 12 seconds. NUMBER OF FLUOROSCOPIC IMAGES: 4 FINDINGS: A timeout was performed. The risks the procedure were explained to the patient and the patient's daughter. Informed consent wa s obtained from the patient's daughter. The patient was prepped and draped in a sterile fashion. The skin was anesthetized with 1% lidocaine. Utilizing a 20-gauge spinal needle under fluoroscopic guidance, lumbar puncture was performed at the L3 level. 8 cc of clear CSF was withdrawn under gravity drip. The fluid was into 4 tubes and sent for laboratory analysis as specified by the referring clinician. Incidental note is made of a right-sided abdominal calcification. It is unclear whether this represen ts a calcified lymph node or urinary tract calcification. IMPRESSION: 1. Successful fluoroscopically guided diagnostic lumbar puncture 2. 8 cc of clear CSF was withdrawn and a gravity drip and into 4 tubes. The fluid was sent for laboratory analysis. ACT 112: Negative or not required by law. Electronically signed by: Keven Pineda M.D. 12/11/2019 8:36 PM
[2019-12-11 20:46] LABS: CSF Glucose 71 mg/dl (40-70); Total Protein CSF 70.8 mg/dl (15-45)
[2019-12-11 20:48] LABS: CSF Chemistry Tube # 2
[2019-12-11] MEDS: NITROGLYCERIN 2% OINTMENT 30GM TUBE EXT SCH (20:57)
[2019-12-11 20:59] LABS: Appearance CSF CLEAR; CSF Count Tube # 4; CSF Xanthrochromic No xanthochromia; Color CSF COLORLESS; Red Blood Cell CSF (A) 8 /uL (0-); Red Blood Cell CSF (B) 0 /uL (0-); White Blood Cell CSF (A) 2 /uL (0-5); White Blood Cell CSF (B) 0 /uL (0-5)
[2019-12-11 23:04] LABS: Cryptococcus neoformans/ga PCR Not Detected (NotDetected); Cytomegalovirus PCR Not Detected (NotDetected); Enterovirus PCR Not Detected (NotDetected); Escherichia coli K1 PCR Not Detected (NotDetected); Haemophilius influenzae PCR Not Detected (NotDetected); Herpes Simplex Virus 1 PCR Not Detected (NotDetected); Herpes Simplex Virus 2 PCR Not Detected (NotDetected); Human Herpes Virus 6 PCR Not Detected (NotDetected); Human Parechovirus PCR Not Detected (NotDetected); Listeria monocytogenes PCR Not Detected (NotDetected); Neisseria meningitidis PCR Not Detected (NotDetected); Streptococcus agalactiae PCR Not Detected (NotDetected); Streptococcus pneumoniae PCR Not Detected (NotDetected); Varicella Zoster Virus PCR Not Detected (NotDetected)
[2019-12-12] MEDS: NITROGLYCERIN 2% OINTMENT 30GM TUBE EXT SCH ×4 (00:30→17:52)
[2019-12-12] MEDS: VANCOMYCIN HCL 750 MG in SODIUM CHLORIDE 0.9% 250 ML IV SCH ×2 (01:55→12:50)
[2019-12-12] MEDS: D5W AND NSS 1,000 ML IV SCH (01:56)
[2019-12-12] MEDS: METOPROLOL TARTRATE 1 MG/ML VIAL IV SCH ×6 (02:08→19:54)
[2019-12-12] MEDS: ACYCLOVIR SOD IV SCH ×2 (04:38→13:01)
[2019-12-12] MEDS: DEXTROSE 5% IV SCH ×2 (04:38→13:01)
[2019-12-12] MEDS: AMPICILLIN 2,000 MG in SODIUM CHLOR 0.9% AD-VAN 100 ML IV SCH ×4 (04:39→12:13)
[2019-12-12 06:47] LABS: Hematocrit (blood only) 40.4 % (37-47); Mean Corpuscular Hemoglobin 31.5 pg (25-34); Mean Corpuscular Hgb Conc 34.7 g/dL (32-36); Mean Corpuscular Volume 90.8 fL (80-100); Mean Platelet Volume 11.2 fL (7.4-10.4); Platelet Count 134 K/uL (130-400); RDW Coefficient of Variation 13.6 % (11.5-14.5); Red Blood Count 4.45 M/uL (4.2-5.4); White Blood Count 11.51 K/uL (4.8-10.8)
[2019-12-12 07:27] LABS: Albumin Globulin Ratio 0.9 (0.9-2); Albumin Level 3.1 gm/dl (3.4-5.0); BUN Creatinine Ratio 6.8 (10-20); Bilirubin,Total 1.1 mg/dl (0.2-1); Calcium 8.2 mg/dl (8.5-10.1); Creatinine Clr Calc Pharmacy 75.1 ml/min; Est GFR (African American) 99.9; Est GFR (Non-African American) 86.2; Globulin 3.3 gm/dl (2.5-4.0); Potassium 2.8 mmol/L (3.5-5.1); Total Protein 6.4 gm/dl (6.4-8.2)
[2019-12-12] MEDS ORDERED: VANCOMYCIN TROUGH ONE ×2 (07:30→11:30)
[2019-12-12] MEDS: POTASSIUM CHLORIDE / WTR 10 MEQ/100 ML PLCT IV SCH ×4 (08:23→11:46)
[2019-12-12 08:39] LABS: Magnesium 1.5 mg/dl (1.8-2.4); Phosphorus 1.6 mg/dl (2.5-4.9)
[2019-12-12] MEDS: cefTRIAXone SODIUM 2,000 MG in DEXTROSE 5% 50 ML IV SCH (09:08)
[2019-12-12] MEDS ORDERED: POTASSIUM PHOS 3 MMOL/1 ML INFUSION IV STA (09:09)
--- NOTE | 2019-12-12 09:33 | Hospitalist Progress Note ---
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 Na: 133, otherwise no significant electrolyte abnormality, UA unremarkable CT HEAD:No acute intracranial abnormality. CTA HEAD:No significant stenosis, occlusion, or aneurysm within the [place]. 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 Incidental note is made of multiple lytic changes within the skull suggesting possible myelomatous type change. CTA NECK:1. Considerable plaque formation bilaterally. 2. 30-40% narrowing of the carotid bifurcations and proximal internal carotid arteries bilaterally. 3. 50% narrowing of the mid and distal right vertebral artery with no evidence for a high-grade stenotic process of the vertebral basilar system. Got Aspirin A1c is 5.8 MRI brain does not show any acute process/CVA Repeat MRI is negative Patient became febrile on 12/09/19 Sepsis, unclear source Labs revised initial report of Urine culture GNR to no growth, reporting previous as erroneous Elevated lactate now normalized with IVF Blood cultures negative so far COVID is negative Altered mental status is likely from Possible/Suspected) MRI negative stroke due to cerebral thromboembolism in the setting of non anticoagulated atrial fibrillation vs meningoencephalitis Will follow neuro recommendations Continue empiric therapy with antibiotics and antiviral Family finally agreed on LP yesterday night. Preliminary results not suggestive of any infection. Even though empirical antibiotics may affect CSF cultures but will not affected viral PCR studies. Mildly elevated total protein nonspecific Discussed the patient with Dr Nicholas. Also all infectious work up negative so far. Will stop antibiotic and antiviral for now and monitor Patient appears to be clinically improving slowly Continue aspiration precautions NPO for now Will get CHEMICAL PROCESSOR when more cooperative (3) Atrial fibrillation with RVR: Pt with h/o paroxysmal atrial fibrillation. H/O afib s/p cardioversion in 2018 with recurrence Last outpatient pacer interrogation in 09/2019 showed a-fib since 06/2019 Pt not on anticoagulation secondary to bleeding risk and fall Risk. H/O spontaneous intra-abdominal hemorrhage with unknown source in 2018 while on Couamdin, H/O traumatic brain hemorrhage secondary to fall in 07/2018 and off coumadin since. In ER given Cardizem 5mg IV and Cardizem drip titrated from 5mg down to 2.5 with HR from 130's to 70's. Closely monitor HR, may need to consider additional agent Currently rate controlled Certified Juvenile Probation Officer recommendations noted No anticoagulation for now but this may be addressed later (4) Sick sinus syndrome: (5) History of pacemaker: S/P Pacemaker in 04/2019 (6) HTN (hypertension): Was hypertensive in ER improved while on cardizem drip Still hypertensive IV hydralazine prn for now while NPO Continue to hold home oral losartan for now Will monitor BP and manage appropriately (7) Abnormal CT scan, head: CTA Head: Incidental note is made of multiple lytic changes within the skull suggesting possible myelomatous type change (8) Chronic hyponatremia: Na: 128 this morning Hyponatremia appears chronic from review of labs over the past year Monitor BMP Also hypokalemic, hypomagnesemic and hypophosphatemic yesterday Will replete aggressively Discussed with pharmacy to optimize patient's multiple infusions/meds to aid in management of hyponatremia and other electrolyte imbalances Recheck BMP after repleteion Monitor volume status to avoid fluid overload (9) Hypothyroidism: TSH 1.27 Continue iv levothyroxine for now while NPO DVT Prophylaxis -SCDs Daughter, Erika. DNR/DNI as per discussion with pt's daughter and per pt's advanced directive Will consider Palliative consult if no significant change Admission and Anticipated Discharge Date Admission Date: December 09, 2019 Subjective Patient seen and examined. Patient mental status appear to be improving slowly. Today, patient is more awake, able to say her name only. Occasionally followed commands. She is talking more today. Appears confused. Limited ROS due to mental status Physical Exam Constitutional: no acute distress Eyes: PERRL, conjunctivae normal, anicteric sclerae Respiratory: normal respiratory effort, lungs clear to auscultation Gastrointestinal (Abdomen): normal bowel sounds, soft, nontender, no hepatosplenomegaly Musculoskeletal: Extremities: no cyanosis Neurologic: Awake, alert, oriented to person only, confused. Moves extremities occasionally on command. Was able to move all extremities both to command and noxious stimuli Results & Data Results & Data ([facility]) Vital Signs (Past 12 Hours) Vital Signs Temp Pulse Pulse Resp BP BP Pulse Ox 12/12/19 07:44 103 H 178/98 H 12/12/19 07:43 36.6 C 103 H 16 178/98 H 96 12/12/19 04:06 36.5 C 90 16 157/97 H 95 12/12/19 00:30 36.4 C L 103 H 18 148/96 H 95 12/11/19 23:42 106 H 12/11/19 23:00 109 H 22 157/100 H 97 12/11/19 22:51 161/119 H 12/11/19 22:30 123/74 12/11/19 22:12 162/101 H 12/11/19 21:55 168/96 H Laboratory Results Laboratory Results - last 24 hr 12/11/19 12/11/19 12/11/19 19:58 20:00 20:00 WBC RBC Hgb Hct MCV MCH MCHC RDW Std Deviation RDW Coeff of Del Plt Count MPV Sodium Potassium Chloride Carbon Dioxide Anion Gap BUN Creatinine Est Cr Clr Drug Dosing Est GFR ( Amer) Est GFR (Non-Af Amer) BUN/Creatinine Ratio Glucose Calcium Phosphorus Magnesium Total Bilirubin AST ALT Alkaline Phosphatase Total Protein Albumin Globulin Albumin/Globulin Ratio CSF Appearance CLEAR CSF Color COLORLESS Xanthrochromic No xanthochromia CSF WBC 2 CSF RBC 8 CSF Cell Count Tube # 4 CSF Chemistry Tube # 2 CSF Glucose 71 H CSF Lactate 2.6 H Cancelled CSF Total Protein 70.8 H CSF VDRL Pending CSF C.neoform/gat PCR CSF CMV DNA (PCR) CSF Enterovirus (PCR) CSF E. coli K1 (PCR) CSF H. influenzae (PCR) CSF HSV I (PCR) CSF HSV II (PCR) CSF HHV 6 (PCR) CSF L.monocytogenes PCR CSF N. meningitidis PCR CSF Parechovirus (PCR) CSF S. agalactiae (PCR) CSF S. pneumoniae (PCR) CSF VZV DNA (PCR) CMV Specimen Source CMV Qnt PCR IU/mL CMV Qnt PCR log IU/mL EBV Source Cancelled EBV DNA, Quant Cancelled EBV DNA (PCR) Cancelled Herpes Virus Source HSV I DNA PCR HSV II DNA PCR Herpesvirus 6 Source Cancelled HHV-6 DNA (PCR) Cancelled 12/11/19 12/11/19 12/12/19 20:00 20:00 06:29 WBC RBC Hgb Hct MCV MCH MCHC RDW Std Deviation RDW Coeff of Del Plt Count MPV Sodium 128 L D Potassium 2.8 L Chloride 92 L Carbon Dioxide 26 Anion Gap 10.0 BUN 4 L D Creatinine 0.56 L Est Cr Clr Drug Dosing 75.1 Est GFR ( Amer) 99.9 Est GFR (Non-Af Amer) 86.2 BUN/Creatinine Ratio 6.8 L Glucose 174 H Calcium 8.2 L Phosphorus Magnesium Total Bilirubin 1.1 H AST 30 ALT 30 Alkaline Phosphatase 76 Total Protein 6.4 Albumin 3.1 L Globulin 3.3 Albumin/Globulin Ratio 0.9 CSF Appearance CSF Color Xanthrochromic CSF WBC CSF RBC CSF Cell Count Tube # CSF Chemistry Tube # CSF Glucose CSF Lactate CSF Total Protein CSF VDRL CSF C.neoform/gat PCR Not Detected CSF CMV DNA (PCR) Not Detected CSF Enterovirus (PCR) Not Detected CSF E. coli K1 (PCR) Not Detected CSF H. influenzae (PCR) Not Detected CSF HSV I (PCR) Not Detected CSF HSV II (PCR) Not Detected CSF HHV 6 (PCR) Not Detected CSF L.monocytogenes PCR Not Detected CSF N. meningitidis PCR Not Detected CSF Parechovirus (PCR) Not Detected CSF S. agalactiae (PCR) Not Detected CSF S. pneumoniae (PCR) Not Detected CSF VZV DNA (PCR) Not Detected CMV Specimen Source Cancelled CMV Qnt PCR IU/mL Cancelled CMV Qnt PCR log IU/mL Cancelled EBV Source EBV DNA, Quant EBV DNA (PCR) Herpes Virus Source Cancelled HSV I DNA PCR Cancelled HSV II DNA PCR Cancelled Herpesvirus 6 Source HHV-6 DNA (PCR) 12/12/19 12/12/19 06:29 06:29 WBC 11.51 H RBC 4.45 Hgb 14.0 Hct 40.4 MCV 90.8 MCH 31.5 MCHC 34.7 RDW Std Deviation 45.0 RDW Coeff of Del 13.6 Plt Count 134 MPV 11.2 H Sodium Potassium Chloride Carbon Dioxide Anion Gap BUN Creatinine Est Cr Clr Drug Dosing Est GFR ( Amer) Est GFR (Non-Af Amer) BUN/Creatinine Ratio Glucose Calcium Phosphorus 1.6 L D Magnesium 1.5 L Total Bilirubin AST ALT Alkaline Phosphatase Total Protein Albumin Globulin Albumin/Globulin Ratio CSF Appearance CSF Color Xanthrochromic CSF WBC CSF RBC CSF Cell Count Tube # CSF Chemistry Tube # CSF Glucose CSF Lactate CSF Total Protein CSF VDRL CSF C.neoform/gat PCR CSF CMV DNA (PCR) CSF Enterovirus (PCR) CSF E. coli K1 (PCR) CSF H. influenzae (PCR) CSF HSV I (PCR) CSF HSV II (PCR) CSF HHV 6 (PCR) CSF L.monocytogenes PCR CSF N. meningitidis PCR CSF Parechovirus (PCR) CSF S. agalactiae (PCR) CSF S. pneumoniae (PCR) CSF VZV DNA (PCR) CMV Specimen Source CMV Qnt PCR IU/mL CMV Qnt PCR log IU/mL EBV Source EBV DNA, Quant EBV DNA (PCR) Herpes Virus Source HSV I DNA PCR HSV II DNA PCR Herpesvirus 6 Source HHV-6 DNA (PCR)
[2019-12-12] MEDS ORDERED: POTASSIUM PHOSPHATE 24 MMOL in SODIUM CHLORIDE 0.9% 500 ML IV ONE (09:45)
[2019-12-12] MEDS: MAGNESIUM SULFATE / D5W 1 GM/100 ML BAG IV SCH ×2 (09:49→11:51)
[2019-12-12] MEDS: LEVOTHYROXINE SODIUM 50 MCG in SYRINGE 0 ML IV SCH (10:59)
--- NOTE | 2019-12-12 11:19 | Cardiology Progress Note ---
Date of Service December 12, 2019 Assessment & Plan (1) Stroke: MRI and serial testing did not demonstrate acute infarct question diffuse encephalopathy now responding to therapies (2) Persistent atrial fibrillation: Atrial fibrillation elevated on initial presentation likely driven by acute event. Plan patient improving with now resuming oral med regimen. Will discontinue topical nitrates this evening. Patient remains high risk anticoagulation candidate (3) Hypertension: (4) History of pacemaker: Device functioning appropriately Subjective Patient seen and examined, chart, medications, telemetry reviewed. Patient awake and now speaking answering questions No focal deficit grossly Remains in atrial fibrillation but has begun oral medications this morning Physical Exam ENMT: external ear and nose normal, oropharynx normal Neck: trachea midline, no thyromegaly Respiratory: Auscultation: + diminished lung sounds Cardiovascular: Rate/Rhythm: + irregularly irregular Heart Sounds: normal S1, normal S2 and + murmur (Grade 1/6 systolic murmur at apex) Palpation: normal PMI Vessels: normal carotid upstroke; no JVD, no carotid bruit and no abdominal aortic bruit Extremities: normal capillary refill; no edema Chest (Breasts): Chest: + pacemaker (No surrounding irritation or tenderness) Gastrointestinal (Abdomen): normal bowel sounds, soft, nontender, no hepatosplenomegaly Neurologic: Still diffusely disoriented and mildly lethargic but Results & Data Vital Signs (Past 12 Hours) Vital Signs Temp Pulse Pulse Resp BP BP Pulse Ox 12/12/19 07:44 103 H 178/98 H 12/12/19 07:43 36.6 C 103 H 16 178/98 H 96 12/12/19 04:06 36.5 C 90 16 157/97 H 95 12/12/19 00:30 36.4 C L 103 H 18 148/96 H 95 12/11/19 23:42 106 H Laboratory Results Laboratory Results - last 24 hr 12/12/19 12/12/19 12/13/19 13:49 20:04 06:48 WBC 9.24 RBC 4.70 Hgb 14.8 Hct 42.7 MCV 90.9 MCH 31.5 MCHC 34.7 RDW Std Deviation 43.9 RDW Coeff of Del 13.3 Plt Count 156 MPV 11.8 H Sodium 121 L D 123 L Potassium 3.7 D 3.2 L Chloride 86 L 89 L Carbon Dioxide 26 24 Anion Gap 9.0 10.0 BUN 3 L 8 D Creatinine 0.57 L 0.55 L Est Cr Clr Drug Dosing 73.8 76.5 Est GFR ( Amer) 99.4 100.5 Est GFR (Non-Af Amer) 85.7 86.7 BUN/Creatinine Ratio 5.3 L 14.3 Glucose 196 H 132 H Calcium 8.4 L 8.1 L Phosphorus Magnesium 12/13/19 06:48 WBC RBC Hgb Hct MCV MCH MCHC RDW Std Deviation RDW Coeff of Del Plt Count MPV Sodium 124 L Potassium 3.1 L Chloride 87 L Carbon Dioxide 28 Anion Gap 9.0 BUN 8 Creatinine 0.51 L Est Cr Clr Drug Dosing 81.9 Est GFR ( Amer) 103.1 Est GFR (Non-Af Amer) 88.9 BUN/Creatinine Ratio 16.2 Glucose 93 Calcium 8.7 Phosphorus 2.0 L Magnesium 1.9 (1) Hypertension Hypertension type: unspecified Qualified Code(s): I10 - Essential (primary) hypertension
--- NOTE | 2019-12-12 13:11 | Pharmacy Report ---
Pharmacy Abx Dose Progress Nt - Date of Service December 12, 2019 - Pharmacy Dosing Scope The patient is currently receiving the following antimicrobial agents per Pharmacy consult: VANCOMYCIN 750mg IV every 12 hours - Objective Vital Signs (Past 12hrs): Vital Signs Temp Pulse Pulse Resp BP BP Pulse Ox 12/12/19 12:13 98 H 166/108 H 12/12/19 11:55 36.7 C 98 H 19 166/108 H 96 12/12/19 07:44 103 H 178/98 H 12/12/19 07:43 36.6 C 103 H 16 178/98 H 96 12/12/19 04:06 36.5 C 90 16 157/97 H 95 Lab Results (24hrs): Laboratory Tests (24 Hours) 12/12/19 12/12/19 12/12/19 11:47 06:29 06:29 WBC 11.51 H Creatinine 0.56 L Est Cr Clr Drug Dosing 75.1 Vancomycin Trough 10.5 Micro Results: 12/11/19 20:00 Gram Stain - Final Cerebral Spinal Fluid 12/11/19 20:00 Acid Fast Bacilli Smear - Pending Cerebral Spinal Fluid Acid Fast Bacilli Culture - Pending 12/11/19 20:00 Cryptococcal Antigen Test - Final Cerebral Spinal Fluid 12/09/19 12:00 Urine Culture - Final Urine,Straight Cath No growth - less than 1,000 colonies/mL. - Risk Factors for Resistance * Resident in a long term or extended-care facility * Hospitalization for 48 hours or more within the past 90 days * Current hospitalization > 5 days * Chronic dialysis within the past 30 days * Immunocompromised (chronic steroid therapy, chemotherapy, immunomodulators) * History of infection with a multidrug-resistant organism: [organism] [site of infection] [date] * Antimicrobial use within the last 90 days [include specific drugs, if known] - Assessment & Plan Assessment 84 year old F receiving VANCOMYCIN/ACYCLOVIR/CEFTRIAXONE/AMPICILLIN for treatment of POSSIBLE MENINGITIS. Day # 3 of antimicrobial therapy Plan Vancomycin IV * Trough level of 10.5 mcg/mL is SUBtherapeutic. Additionally, it appears the VANC dose prior to the trough level was administered ~2 hours late, which indicates the trough of 10.5 may actually be falsely elevated. * Change to 1000mg IV every 10 hours * Goal trough level for meningitis : 15 to 20 mcg/mL * Trough level ordered for: 12/13/19 @ 1000. Will monitor levels closely due to patient age and low body weight. Pharmacy will continue to follow and will adjust dose/frequency as necessary. Thank you.
[2019-12-12] MEDS ORDERED: VANCOMYCIN HCL 1,000 MG in SODIUM CHLORIDE 0.9% 250 ML IV SCH (14:00)
[2019-12-12 14:17] LABS: BUN Creatinine Ratio 5.3 (10-20); Calcium 8.4 mg/dl (8.5-10.1); Creatinine Clr Calc Pharmacy 73.8 ml/min; Est GFR (African American) 99.4; Est GFR (Non-African American) 85.7; Potassium 3.7 mmol/L (3.5-5.1)
[2019-12-12] MEDS: HydrALAZINE HCL 20 MG/ML VIAL IV PRN (15:58)
[2019-12-12 20:41] LABS: BUN Creatinine Ratio 14.3 (10-20); Calcium 8.1 mg/dl (8.5-10.1); Creatinine Clr Calc Pharmacy 76.5 ml/min; Est GFR (African American) 100.5; Est GFR (Non-African American) 86.7; Potassium 3.2 mmol/L (3.5-5.1)
[2019-12-12] MEDS ORDERED: SODIUM CHLORIDE 0.9% IV SCH (22:00)
[2019-12-12] MEDS ORDERED: ACYCLOVIR SOD IV SCH (22:00)
[2019-12-13] MEDS: METOPROLOL TARTRATE 1 MG/ML VIAL IV SCH ×3 (00:21→07:21)
[2019-12-13] MEDS: NITROGLYCERIN 2% OINTMENT 30GM TUBE EXT SCH ×3 (00:21→12:24)
[2019-12-13] MEDS: HydrALAZINE HCL 20 MG/ML VIAL IV PRN (07:20)
[2019-12-13 07:33] LABS: Hematocrit (blood only) 42.7 % (37-47); Hemoglobin 14.8 g/dL (12.0-16.0); Mean Corpuscular Hemoglobin 31.5 pg (25-34); Mean Corpuscular Hgb Conc 34.7 g/dL (32-36); Mean Corpuscular Volume 90.9 fL (80-100); Mean Platelet Volume 11.8 fL (7.4-10.4); Platelet Count 156 K/uL (130-400); RDW Coefficient of Variation 13.3 % (11.5-14.5); RDW Standard Deviation 43.9 fL (36.4-46.3); White Blood Count 9.24 K/uL (4.8-10.8)
[2019-12-13 08:08] LABS: BUN Creatinine Ratio 16.2 (10-20); Calcium 8.7 mg/dl (8.5-10.1); Creatinine Clr Calc Pharmacy 81.9 ml/min; Est GFR (African American) 103.1; Est GFR (Non-African American) 88.9; Magnesium 1.9 mg/dl (1.8-2.4); Potassium 3.1 mmol/L (3.5-5.1)
[2019-12-13] MEDS: LEVOTHYROXINE SODIUM 50 MCG in SYRINGE 0 ML IV SCH (09:02)
--- NOTE | 2019-12-13 09:04 | Hospitalist Progress Note ---
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 Na: 133, otherwise no significant electrolyte abnormality, UA unremarkable CT HEAD:No acute intracranial abnormality. CTA HEAD:No significant stenosis, occlusion, or aneurysm within the [place]. 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 Incidental note is made of multiple lytic changes within the skull suggesting possible myelomatous type change. CTA NECK:1. Considerable plaque formation bilaterally. 2. 30-40% narrowing of the carotid bifurcations and proximal internal carotid arteries bilaterally. 3. 50% narrowing of the mid and distal right vertebral artery with no evidence for a high-grade stenotic process of the vertebral basilar system. Got Aspirin A1c is 5.8 MRI brain does not show any acute process/CVA Repeat MRI is negative Patient became febrile on 12/09/19 Sepsis, unclear source Labs revised initial report of Urine culture GNR to no growth, reporting previous as erroneous Elevated lactate now normalized with IVF Blood cultures negative so far COVID is negative Altered mental status is likely from Possible/Suspected MRI negative stroke due to cerebral thromboembolism in the setting of non anticoagulated atrial fibrillation vs noninfectious encephalopathy Delayed LP as family took time to decide. Was initially started on empiric antibiotics and antiviral Preliminary results not suggestive of any CSF infection. Even though empirical antibiotics may affect CSF cultures but will not affected viral PCR studies. Mildly elevated total protein nonspecific Discussed the patient with Dr Nicholas on 12/12/19. Also all infectious work up negative so far. Stopped antibiotic and antiviral for now Continue to monitor Patient appears to be clinically improving slowly Assessed by CUT OFF WORKER Started on pureed diet which she is tolerating well (3) Atrial fibrillation with RVR: Pt with h/o paroxysmal atrial fibrillation. H/O afib s/p cardioversion in 2017 with recurrence Last outpatient pacer interrogation in 09/2019 showed a-fib since 06/2019 Pt not on anticoagulation secondary to bleeding risk and fall Risk. H/O spontaneous intra-abdominal hemorrhage with unknown source in 2018 while on Couamdin, H/O traumatic brain hemorrhage secondary to fall in 07/2018 and off c oumadin since. In ER given Cardizem 5mg IV and Cardizem drip titrated from 5mg down to 2.5 with HR from 130's to 70's. Closely monitor HR, may need to consider additional agent Currently rate controlled Building Analyst/Supervisor recommendations noted No anticoagulation for now but this may be addressed later Home metoprolol succinate dose resumed (4) Sick sinus syndrome: (5) History of pacemaker: S/P Pacemaker in 04/2019 (6) HTN (hypertension): Was hypertensive in ER improved while on cardizem drip Still hypertensive Resume home oral losartan for now Will monitor BP and manage appropriately (7) Abnormal CT scan, head: CTA Head: Incidental note is made of multiple lytic changes within the skull suggesting possible myelomatous type change (8) Chronic hyponatremia: Hyponatremia appears chronic from review of labs over the past year However, Na dropped yesterday to a katja of 121. Likely due to multiple infusions with some of the meds in D5 Antibiotics/antiviral infusions currently stopped as above Na slowly trending up. Currently 124 this AM Tolerating po. Fluid restriction Monitor BMP Still hypokalemic and hypophosphatemic Continue repletion Nutrition consult (9) Hypothyroidism: TSH 1.27 Resume po levothyroxine DVT Prophylaxis -SCDs Daughter, Erika. DNR/DNI as per discussion with pt's daughter and per pt's advanced directive Get PT/OT eval Admission and Anticipated Discharge Date Admission Date: December 09, 2019 Subjective Patient seen and examined. Patient is awake, alert oriented to person, place and month. Patient not able to provide much history about incident prior to presentation Limited ROS due to occasional confusion and probable hearing deficits Physical Exam Constitutional: + ill appearing (Chronic); no acute distress Eyes: PERRL, conjunctivae normal, anicteric sclerae ENMT: external ear and nose normal, oropharynx normal Respiratory: normal respiratory effort, lungs clear to auscultation Cardiovascular: Irregular rate and rhythm, S1 S2 Gastrointestinal (Abdomen): normal bowel sounds, soft, nontender, no hepatosplenomegaly Musculoskeletal: Extremities: no cyanosis Neurologic: Alert and oriented to person, place and month. Follows commands appropriately Moves all extremities. No focal motor deficits noted Results & Data Results & Data ([facility]) Vital Signs (Past 12 Hours) Vital Signs Temp Pulse Pulse Resp BP BP Pulse Ox 12/13/19 09:02 123/85 12/13/19 07:21 89 175/102 H 12/13/19 07:19 36.1 C L 89 16 175/102 H 98 12/13/19 03:21 36.7 C 75 16 153/96 H 97 12/12/19 23:07 36.6 C 94 H 18 152/98 H 97 Laboratory Results Laboratory Results - last 24 hr 12/12/19 12/12/19 12/12/19 11:47 13:49 20:04 WBC RBC Hgb Hct MCV MCH MCHC RDW Std Deviation RDW Coeff of Del Plt Count MPV Sodium 121 L D 123 L Potassium 3.7 D 3.2 L Chloride 86 L 89 L Carbon Dioxide 26 24 Anion Gap 9.0 10.0 BUN 3 L 8 D Creatinine 0.57 L 0.55 L Est Cr Clr Drug Dosing 73.8 76.5 Est GFR ( Amer) 99.4 100.5 Est GFR (Non-Af Amer) 85.7 86.7 BUN/Creatinine Ratio 5.3 L 14.3 Glucose 196 H 132 H Calcium 8.4 L 8.1 L Phosphorus Magnesium Vancomycin Trough 10.5 12/13/19 12/13/19 06:48 06:48 WBC 9.24 RBC 4.70 Hgb 14.8 Hct 42.7 MCV 90.9 MCH 31.5 MCHC 34.7 RDW Std Deviation 43.9 RDW Coeff of Del 13.3 Plt Count 156 MPV 11.8 H Sodium 124 L Potassium 3.1 L Chloride 87 L Carbon Dioxide 28 Anion Gap 9.0 BUN 8 Creatinine 0.51 L Est Cr Clr Drug Dosing 81.9 Est GFR ( Amer) 103.1 Est GFR (Non-Af Amer) 88.9 BUN/Creatinine Ratio 16.2 Glucose 93 Calcium 8.7 Phosphorus 2.0 L Magnesium 1.9 Vancomycin Trough
[2019-12-13] MEDS ORDERED: POTASSIUM CHLORIDE PWD 20 MEQ PACK PO STA (09:07)
[2019-12-13] MEDS ORDERED: VANCOMYCIN TROUGH ONE (09:30)
[2019-12-13] MEDS: ASPIRIN 81 MG ECTAB PO SCH (09:53)
[2019-12-13] MEDS: METOPROLOL SUCC 25MG EXT REL TAB PO SCH (09:53)
[2019-12-13] MEDS ORDERED: POT PHOSPHATE MONOBASIC W/ SOD TAB PO ONE (10:06)
[2019-12-13 17:53] LABS: BUN Creatinine Ratio 23.6 (10-20); Calcium 8.6 mg/dl (8.5-10.1); Est GFR (African American) 89.8; Est GFR (Non-African American) 77.4
[2019-12-13] MEDS: POT PHOSPHATE MONOBASIC W/ SOD TAB PO SCH (20:12)
[2019-12-13] MEDS: LOSARTAN POTASSIUM 25 MG TAB PO SCH (20:12)
[2019-12-14] MEDS: LEVOTHYROXINE SODIUM 100 MCG TABLET PO SCH (06:14)
[2019-12-14] MEDS: METOPROLOL SUCC 25MG EXT REL TAB PO SCH (07:51)
[2019-12-14] MEDS: ASPIRIN 81 MG ECTAB PO SCH (07:51)
[2019-12-14] MEDS: POT PHOSPHATE MONOBASIC W/ SOD TAB PO SCH ×2 (07:52→20:38)
[2019-12-14 09:08] LABS: Hematocrit (blood only) 47.5 % (37-47); Hemoglobin 16.3 g/dL (12.0-16.0); Mean Corpuscular Hemoglobin 31.8 pg (25-34); Mean Corpuscular Hgb Conc 34.3 g/dL (32-36); Mean Corpuscular Volume 92.8 fL (80-100); Mean Platelet Volume 11.4 fL (7.4-10.4); Platelet Count 159 K/uL (130-400); RDW Coefficient of Variation 13.9 % (11.5-14.5); RDW Standard Deviation 46.9 fL (36.4-46.3); Red Blood Count 5.12 M/uL (4.2-5.4); White Blood Count 8.23 K/uL (4.8-10.8)
--- NOTE | 2019-12-14 09:26 | Progress Notes ---
DATE: 12/13/2019 SUBJECTIVE: The patient was seen and examined this morning. She is sitting upright in bed and denies any new complaints or concerns. She reports feeling better, although she is still semi-confused as to what happened. OBJECTIVE: VITAL SIGNS: Blood pressure 124/87, pulse is 87, respiratory rate is 19. Her temperature is 36.8. She is 94% on room air. NEUROLOGIC: The patient is awake, alert and oriented to person. She is disoriented to place. She believes she was in [place] and/or disoriented to her age. She is following simple commands such as touch your nose with your left hand, show me your right hand, lift your right leg, stick your tongue out. Her speech is soft, although clear. She is able to repeat. She is grossly hard of hearing. Her eyes are midline and her extraocular muscles are intact. Her face is symmetric. Hearing is grossly impaired. She is sitting upright in bed. There is no tremor or myoclonic jerks. Sensation is intact to light touch. [id number] testing reveals some bradykinesia with no obvious ataxia. Gait examination was deferred due to the patient's confusion. LABORATORY DATA: WBC was 9.24, hemoglobin was 14.8, platelet count was 156. INR was 1.1. Her sodium is 124, which is improved from 123. Her potassium is 3.1, her chloride is 87, her creatinine is 0.51. Her glucose is 93. Her phosphorus is 2.0. Urinalysis performed on 12/08/2019 showed clear fluid. Urine pH was 8.0, trace ketones were noted. Lumbar puncture which was performed on 12/11/2019 and opening pressure does not appear to have performed. CSF study results show the following: The CSF was colorless and clear. There was no xanthochromia. CSF WBCs was 2. CSF RBCs was 8. CSF glucose was mildly elevated at 71. CSF lactate was mildly elevated at 2.6. CSF total protein was 70.8. CSF VDRL is pending. CSF PCR for CMV, enterovirus coli, influenza, HSV-1, HSV-2 HHV-6, Neisseria meningitides, strep pneumonia and VZV, DNA, PCR are all negative or not detected. In regards to microbiology cryptococcal antigen was not detected. CSF cultures and blood cultures showed no growth. Urine culture showed no growth. ASSESSMENT AND PLAN: An 84-year-old woman with multiple medical comorbidities including paroxysmal atrial fibrillation, not on anticoagulation secondary to fall and bleeding risk, sick sinus rhythm status post pacemaker in 04/2019, hypertension, chronic hyponatremia, and history of transient ischemic attack in 05/2019 as well as a previous intra-abdominal hemorrhage in 2018 while on Coumadin, admitted to the hospital on 12/08/2019 for weakness and speech difficulty and confusion. Serial MRI brain without contrast was negative for acute ischemic stroke. Upon admission, she did spike a fever as well as a mildly elevated leukocytosis which prompted starting broad spectrum antimicrobials as well as a lumbar puncture. A lumbar puncture was performed 1 day after starting antibiotics. The lumbar puncture or CSF studies was inconsistent with a bacterial meningitis or encephalitis. HSV PCR was negative. Differential diagnosis for this intermittent transient weakness and speech difficulty remains unclear, although the differential diagnosis certainly includes a viral meningitis versus a postictal state from a possible seizure. Overall, the patient does appear to be improving. Agree with discontinuing CSF antimicrobials given the recent lumbar puncture results. Neurology will sign off for now . Please contact me with any further questions or concerns. We will consider repeating a routine EEG as outpatient. Please have the patient follow up with Neurology in 8 weeks.
[2019-12-14 09:47] LABS: BUN Creatinine Ratio 22.4 (10-20); Calcium 9.3 mg/dl (8.5-10.1); Creatinine Clr Calc Pharmacy 55.8 ml/min; Est GFR (African American) 85.4; Est GFR (Non-African American) 73.7; Potassium 4.1 mmol/L (3.5-5.1)
--- NOTE | 2019-12-14 10:26 | Hospitalist Progress Note ---
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 Na: 133, otherwise no significant electrolyte abnormality, UA unremarkable CT HEAD:No acute intracranial abnormality. CTA HEAD:No significant stenosis, occlusion, or aneurysm within the [place]. 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 Incidental note is made of multiple lytic changes within the skull suggesting possible myelomatous type change. CTA NECK:1. Considerable plaque formation bilaterally. 2. 30-40% narrowing of the carotid bifurcations and proximal internal carotid arteries bilaterally. 3. 50% narrowing of the mid and distal right vertebral artery with no evidence for a high-grade stenotic process of the vertebral basilar system. Got Aspirin A1c is 5.8 MRI brain does not show any acute process/CVA Repeat MRI is negative Patient became febrile on 12/09/19 Sepsis, unclear source Labs revised initial report of Urine culture GNR to no growth, reporting previous as erroneous Elevated lactate now normalized with IVF Blood cultures negative so far COVID is negative Altered mental status is likely from Possible/Suspected MRI negative stroke due to cerebral thromboembolism in the setting of non anticoagulated atrial fibrillation vs noninfectious encephalopathy vs viral meningitis Delayed LP as family took time to decide. Was initially started on empiric antibiotics and antiviral Preliminary results not suggestive of any CSF infection. Even though empirical antibiotics may affect CSF cultures but will not affected viral PCR studies. Mildly elevated total protein nonspecific Discussed the patient with Dr Nicholas on 12/12/19. Also all infectious work up negative so far. Stopped antibiotic and antiviral Patient continue to improve Started on pureed diet which she is tolerating well Discussed in details with daughter over the phone today PT recommend SNF (3) Atrial fibrillation with RVR: Pt with h/o paroxysmal atrial fibrillation. H/O afib s/p cardioversion in 2018 with recurrence Last outpatient pacer interrogation in 09/2019 showed a-fib since 06/2019 Pt not on anticoagulation secondary to bleeding risk and fall Risk. H/O spontaneous intra-abdominal hemorrhage with unknown source in 2018 while on Couamdin, H/O traumatic brain hemorrhage secondary to fall in 07/2018 and off coumadin since. In ER given Cardizem 5mg IV and Cardizem drip titrated from 5mg down to 2.5 with HR from 130's to 70's. Closely monitor HR, may need to consider additional agent Currently rate controlled Reporting Developer recommendations noted No anticoagulation for now but this may be addressed later Home metoprolol succinate dose resumed (4) Sick sinus syndrome: S/P Pacer in 04/2019 Outpatient cardiology notes report pacemaker is MRI compatible (5) History of pacemaker: S/P Pacemaker in 04/2019 (6) HTN (hypertension): Now controlled Continue home antihypertensives Will monitor BP and manage appropriately (7) Abnormal CT scan, head: CTA Head: Incidental note is made of multiple lytic changes within the skull suggesting possible myelomatous type change (8) Chronic hyponatremia: Hyponatremia appears chronic from review of labs over the past year However, Na dropped yesterday to a katja of 121. Likely due to multiple infusions with some of the meds in D5 Antibiotics/antiviral infusions currently stopped as above Na slowly trending up. Currently 128 this AM Tolerating po. Fluid restriction Monitor BMP Was hypokalemic and hypophosphatemic. Repleted Nutrition recommendations noted (9) Hypothyroidism: TSH 1.27 Continue po levothyroxine DVT Prophylaxis -SCDs Daughter, Erika. DNR/DNI as per discussion with pt's daughter and per pt's advanced directive Possible Discharge to SNF tomorrow Admission and Anticipated Discharge Date Admission Date: December 09, 2019 Subjective Patient seen and examined Sitting in bed. Patient is alert, oriented to person and place. More interactive. Mild confusion which could also be due to hearing deficits which limits ROS Physical Exam Constitutional: no acute distress Eyes: PERRL, conjunctivae normal, anicteric sclerae ENMT: external ear and nose normal, oropharynx normal Respiratory: normal respiratory effort, lungs clear to auscultation Cardiovascular: Rate/Rhythm: + irregularly irregular S1-2, no edema Gastrointestinal (Abdomen): normal bowel sounds, soft, nontender, no hepatosplenomegaly Musculoskeletal: Extremities: no cyanosis Neurologic: AOX2, hearing deficits, no focal motor deficits Results & Data Results & Data ([facility]) Vital Signs (Past 12 Hours) Vital Signs Temp Pulse Pulse Resp BP Pulse Ox 12/14/19 07:50 36.5 C 81 16 132/84 96 12/14/19 03:32 36.4 C L 81 18 155/97 H 96 12/13/19 23:24 64 12/13/19 23:22 36.6 C 63 16 147/94 H 96 Laboratory Results Laboratory Results - last 24 hr 12/13/19 12/13/19 12/14/19 17:00 18:00 08:49 WBC RBC Hgb Hct MCV MCH MCHC RDW Std Deviation RDW Coeff of Del Plt Count MPV Sodium 127 L 128 L Potassium 4.1 D 4.1 Chloride 91 L 94 L Carbon Dioxide 28 27 Anion Gap 8.0 7.0 BUN 17 D 17 Creatinine 0.72 0.75 Est Cr Clr Drug Dosing 58.0 55.8 Est GFR ( Amer) 89.8 85.4 Est GFR (Non-Af Amer) 77.4 73.7 BUN/Creatinine Ratio 23.6 H 22.4 H Glucose 86 106 H Calcium 8.6 9.3 Specimen Hemolysis 12/14/19 08:49 WBC 8.23 RBC 5.12 Hgb 16.3 H Hct 47.5 H MCV 92.8 MCH 31.8 MCHC 34.3 RDW Std Deviation 46.9 H RDW Coeff of Del 13.9 Plt Count 159 MPV 11.4 H Sodium Potassium Chloride Carbon Dioxide Anion Gap BUN Creatinine Est Cr Clr Drug Dosing Est GFR ( Amer) Est GFR (Non-Af Amer) BUN/Creatinine Ratio Glucose Calcium Specimen Hemolysis
[2019-12-14] MEDS: LOSARTAN POTASSIUM 25 MG TAB PO SCH (20:37)
[2019-12-15] MEDS: LEVOTHYROXINE SODIUM 100 MCG TABLET PO SCH (05:32)
[2019-12-15 06:10] LABS: Hematocrit (blood only) 44.9 % (37-47); Hemoglobin 15.4 g/dL (12.0-16.0); Mean Corpuscular Hemoglobin 31.8 pg (25-34); Mean Corpuscular Hgb Conc 34.3 g/dL (32-36); Mean Corpuscular Volume 92.8 fL (80-100); Mean Platelet Volume 10.8 fL (7.4-10.4); Platelet Count 168 K/uL (130-400); RDW Coefficient of Variation 14.2 % (11.5-14.5); Red Blood Count 4.84 M/uL (4.2-5.4); White Blood Count 7.11 K/uL (4.8-10.8)
[2019-12-15 06:44] LABS: BUN Creatinine Ratio 23.4 (10-20); Calcium 8.6 mg/dl (8.5-10.1); Creatinine Clr Calc Pharmacy 53.3 ml/min; Est GFR (African American) 82.8; Est GFR (Non-African American) 71.4
[2019-12-15] MEDS: METOPROLOL SUCC 25MG EXT REL TAB PO SCH (08:27)
[2019-12-15] MEDS: ASPIRIN 81 MG ECTAB PO SCH (08:27)
[2019-12-15] MEDS: POT PHOSPHATE MONOBASIC W/ SOD TAB PO SCH ×2 (08:28→22:16)
--- NOTE | 2019-12-15 09:58 | Hospitalist Progress Note ---
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 Na: 133, otherwise no significant electrolyte abnormality, UA unremarkable CT HEAD:No acute intracranial abnormality. CTA HEAD:No significant stenosis, occlusion, or aneurysm within the [place]. 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 Incidental note is made of multiple lytic changes within the skull suggesting possible myelomatous type change. CTA NECK:1. Considerable plaque formation bilaterally. 2. 30-40% narrowing of the carotid bifurcations and proximal internal carotid arteries bilaterally. 3. 50% narrowing of the mid and distal right vertebral artery with no evidence for a high-grade stenotic process of the vertebral basilar system. Got Aspirin A1c is 5.8 MRI brain does not show any acute process/CVA Repeat MRI is negative Patient became febrile on 12/09/19 Sepsis, unclear source Labs revised initial report of Urine culture GNR to no growth, reporting previous as erroneous Elevated lactate now normalized with IVF Blood cultures negative so far COVID is negative Altered mental status is likely from Possible/Suspected MRI negative stroke due to cerebral thromboembolism in the setting of non anticoagulated atrial fibrillation vs noninfectious encephalopathy vs viral meningitis Delayed LP as family took time to decide. Was initially started on empiric antibiotics and antiviral Preliminary results not suggestive of any CSF infection. Even though empirical antibiotics may affect CSF cultures but will not affected viral PCR studies. Mildly elevated total protein nonspecific Discussed the patient with Dr Nicholas on 12/12/19. Also all infectious work up negative so far. Stopped antibiotic and antiviral Patient continue to improve, back to normal mental status Started on pureed diet which she is tolerating well PT recommend SNF Placement in process (3) Atrial fibrillation with RVR: Pt with h/o paroxysmal atrial fibrillation. H/O afib s/p cardioversion in 2018 with recurrence Last outpatient pacer interrogation in 09/2019 showed a-fib since 06/2019 Pt not on anticoagulation secondary to bleeding risk and fall Risk. H/O spontaneous intra-abdominal hemorrhage with unknown source in 2018 while on Couamdin, H/O traumatic brain hemorrhage secondary to fall in 07/2018 and off coumadin since. In ER given Cardizem 5mg IV and Cardizem drip titrated from 5mg down to 2.5 with HR from 130's to 70's. Closely monitor HR, may need to consider additional agent Currently rate controlled Business Performance Analyst recommendations noted No anticoagulation for now but this may be addressed later Home metoprolol succinate dose resumed (4) Sick sinus syndrome: (5) History of pacemaker: S/P Pacemaker in 04/2019 (6) HTN (hypertension): Now controlled Continue home antihypertensives Will monitor BP and manage appropriately (7) Abnormal CT scan, head: CTA Head: Incidental note is made of multiple lytic changes within the skull suggesting possible myelomatous type change (8) Chronic hyponatremia: Hyponatremia appears chronic from review of labs over the past year However, Na dropped to a katja of 121. Likely due to multiple infusions with some of the meds in D5 Antibiotics/antiviral infusions currently stopped as above Hyponatremia improving, now 135 Tolerating po. Monitor BMP Was hypokalemic and hypophosphatemic. Repleted Nutrition recommendations noted (9) Hypothyroidism: TSH 1.27 Continue po levothyroxine DVT Prophylaxis -SCDs Daughter, Erika. DNR/DNI as per discussion with pt's daughter and per pt's advanced directive Discharge to SNF once placement process is complete Admission and Anticipated Discharge Date Admission Date: December 09, 2019 Subjective Patient seen and examined. Patient has no complaints today No events overnight Physical Exam Constitutional: no acute distress Eyes: PERRL, conjunctivae normal, anicteric sclerae ENMT: external ear and nose normal, oropharynx normal Respiratory: normal respiratory effort, lungs clear to auscultation Cardiovascular: Rate/Rhythm: + irregularly irregular Extremities: no pedal edema S1 S2 Gastrointestinal (Abdomen): normal bowel sounds, soft, nontender, no hepatosplenomegaly Musculoskeletal: Extremities: no cyanosis Neurologic: AOx2. No focal deficits Results & Data Results & Data ([facility]) Vital Signs (Past 12 Hours) Vital Signs Temp Pulse Pulse Resp BP Pulse Ox 12/15/19 07:49 36.9 C 88 18 142/69 H 98 12/15/19 03:38 36.5 C 71 16 137/77 95 12/15/19 00:23 36.7 C 78 16 119/83 95 12/14/19 23:25 77 Laboratory Results Laboratory Results - last 24 hr 12/14/19 12/15/19 12/15/19 16:14 05:54 05:54 WBC 7.11 RBC 4.84 Hgb 15.4 Hct 44.9 MCV 92.8 MCH 31.8 MCHC 34.3 RDW Std Deviation 48.0 H RDW Coeff of Del 14.2 Plt Count 168 MPV 10.8 H Sodium 135 L D Potassium 4.0 Chloride 98 Carbon Dioxide 32 Anion Gap 5.0 BUN 18 Creatinine 0.77 Est Cr Clr Drug Dosing 53.3 Est GFR ( Amer) 82.8 Est GFR (Non-Af Amer) 71.4 BUN/Creatinine Ratio 23.4 H Glucose 78 POC Glucose 84 Calcium 8.6
[2019-12-15] MEDS: LOSARTAN POTASSIUM 25 MG TAB PO SCH (22:16)
[2019-12-16] MEDS: LEVOTHYROXINE SODIUM 100 MCG TABLET PO SCH (06:11)
[2019-12-16] MEDS: METOPROLOL SUCC 25MG EXT REL TAB PO SCH (08:29)
[2019-12-16] MEDS: POT PHOSPHATE MONOBASIC W/ SOD TAB PO SCH (08:29)
[2019-12-16] MEDS: ASPIRIN 81 MG ECTAB PO SCH (08:29)
--- NOTE | 2019-12-16 14:57 | Hospitalist Progress Note ---
Date of Service December 16, 2019 Assessment & Plan (1) Stroke-like symptom: uncertain cause, no objective evidence of stroke, or infectious etiology on broad workup. Not on anti-infectives and continues to improve clinically. Still not quite to baseline abilities. Questioned the possibility of NPH with Neuro who feels this would be more chronic and not quite explain the acute neurologic change. (2) Persistent atrial fibrillation: Pt with h/o paroxysmal atrial fibrillation. H/O afib s/p cardioversion in 2018 with recurrence Last outpatient pacer interrogation in 09/2019 showed a-fib since 06/2019 Pt not on anticoagulation secondary to bleeding risk and fall Risk. H/O spontaneous intra-abdominal hemorrhage with unknown source in 2018 while on Couamdin, H/O traumatic brain hemorrhage secondary to fall in 07/2018 and off coumadin since. RVR was present early in the hospitalization, and rate was controlled with a diltiazem drip. Cardiology has seen her this admission and agrees to continue off anticoagulation moving forward despite her higher stroke risk. Cont home metoprolol dose. (3) Sick sinus syndrome: S/P Pacer in 04/2019 Outpatient cardiology notes report pacemaker is MRI compatible (4) History of pacemaker: S/P Pacemaker in 04/2019 (5) HTN (hypertension): Initial BP elevated and permissive hypertension allowed. Back on losartan per home regimen and is at goal. (6) Abnormal CT scan, head: CTA Head: Incidental note is made of multiple lytic changes within the skull suggesting possible myelomatous type change (7) Chronic hyponatremia: at baseline. (8) Hypothyroidism: cont home levothyroxine. (9) DVT prophylaxis: SCDs DNR/DNI Dispo-plan to DC to SNF likely tomorrow. Judith White DO [facility] Hospitalist Admission and Anticipated Discharge Date Admission Date: December 09, 2019 Subjective persistent difficulty articulating her thoughts, although she is speaking and forming words well. Dizzy vy when walking reports urinary incontinence tolerating PO and much improved from admission. Review of Systems Review of Systems: All systems reviewed & are unremarkable except as noted in Subjective Physical Exam Physical Exam: CONSTITUTIONAL: WNWD, vitals as above, generally well- appearing EYES: EOMI bilaterally, PERRL, normal conjunctivae, no scleral icterus ENT: external ear and nose normal, oropharynx clear RESPIRATORY: clear to auscultation bilaterally, no crackles, rales or wheezes, normal respiratory effort CARDIOVASCULAR: regular rate and rhythm, S1 and 2 heard without murmurs, gallops or rubs, no JVD, no peripheral edema GASTROINTESTINAL: soft, nontender, nondistended MUSCULOSKELETAL: strength 5/5 throughout, head is normocephalic and atraumatic SKIN: warm and dry NEUROLOGIC: CN 2-12 grossly intact, normal cognition, normal speech, no tremor PSYCHIATRIC: alert cooperative and oriented to person, place and time. Results & Data Results & Data ([facility]) Vital Signs (Past 12 Hours) Vital Signs Temp Pulse Pulse Resp BP Pulse Ox 12/16/19 12:27 36.6 C 66 20 114/76 96 12/16/19 08:24 36.5 C 75 18 120/68 96 12/16/19 07:00 78 12/16/19 03:44 36.5 C 80 16 157/82 H 95 Medications Administered Current Inpatient Medications Acetaminophen (Tylenol Susp) 650 mg PO Q6H PRN PRN Reason: pain, fever Stop: 01/11/20 14:25 Aspirin (Ecotrin Ectab) 81 mg PO [facility] Stop: 01/12/20 09:14 Last Admin: 12/16/19 08:29 Dose: 81 mg Documented by: Hydralazine HCl (Hydralazine Hcl) 5 mg IV Q6H PRN PRN Reason: BP >160/90 Stop: 01/10/20 10:02 Last Admin: 12/13/19 07:20 Dose: 5 mg Documented by: Levothyroxine Sodium (Synthroid) 100 mcg PO DAILYBB [facility] Stop: 01/13/20 06:29 Last Admin: 12/16/19 06:11 Dose: 100 mcg Documented by: Losartan Potassium (Cozaar) 25 mg PO HS [facility] Stop: 01/12/20 20:59 Last Admin: 12/15/19 22:16 Dose: 25 mg Documented by: Metoprolol Succinate (Toprol Xl) 75 mg PO QAM [facility] Stop: 01/12/20 09:14 Last Admin: 12/16/19 08:29 Dose: 75 mg Documented by: Metoprolol Tartrate (Lopressor) 5 mg IV Q4 [facility] Stop: 01/10/20 19:59 Last Admin: 12/13/19 07:21 Dose: 5 mg Documented by: Potassium Phosphate (Phospha 250 Neutral 155-852-130 Mg) 1 tab PO BID DONNA Stop: 01/12/20 20:59 Last Admin: 12/16/19 08:29 Dose: 1 tab Documented by:
[2019-12-16] MEDS ORDERED: hydrOXYzine HCl 10 MG TAB PO PRN (20:29)
[2019-12-16] MEDS: ACETAMINOPHEN SUSP 325 MG/10.15 ML UDC PO PRN (21:30)
[2019-12-16] MEDS: LOSARTAN POTASSIUM 25 MG TAB PO SCH (21:31)
[2019-12-17] MEDS: LEVOTHYROXINE SODIUM 100 MCG TABLET PO SCH (05:56)
[2019-12-17] MEDS: ASPIRIN 81 MG ECTAB PO SCH (09:04)
[2019-12-17] MEDS: METOPROLOL SUCC 25MG EXT REL TAB PO SCH (09:04)
[2019-12-17] MEDS: ACETAMINOPHEN SUSP 325 MG/10.15 ML UDC PO PRN (09:05)
[2019-12-17] MEDS ORDERED: POLYETHYLENE (MIRALAX) 17 GM PACK PO ONE (10:23)
--- NOTE | 2019-12-17 12:30 | Discharge Summary ---
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 History obtained from pt's daughter secondary to pt's current status. Daughter reports that pt's stated she seemed more confused this morning. It is reported cleaning lady was at house today around 1- 2pm and noticed pt was having difficulty writing a check. Later this evening noted pt with right sided weakness and unable to get out of bed and pt had garbled speech and not talking much and was then brought to ER. No known falls or recent illness. Admission Exam Per Admitting Provider General: moderately developed, moderately nourished elderly female, non-ill appearing, appears to be more comfortable lying towards left side Head: normocephalic, atraumatic Eyes: PERRL, Pt with gaze to left, appears to be right side deficit, unable to follow finger to fully test EOM's, conjunctiva non-injected, anicteric ENT: normal inspection external ears, nose, mucous membranes moist Neck: supple, trachea midline Lungs: clear, no respiratory distress, no wheezing/rhonchi/rales CV: irregularly irregular, rate 78, no pretibial edema Abd: normal BS, soft, no apparent tenderness to palpation Ext: no cyanosis, no calf tenderness Neuro: Awake, opens eyes on repeated prompting, does not follow finger, multiple prompts for following commands and only will slightly squeeze fingers with weak sensory scientist strength bilaterally, pt will not attempt active ROM of upper or lower extremities, is noted to be wiggling right foot and then pull bilateral legs up to flexed position as apparent position of comfort, no apparent facial drooping, unable to test facial movements or strength or tongue movement (unsure if pt understands commands). bilateral patella reflex intact Skin: warm, dry Principal Diagnosis Altered mental status, unclear etiology, resolved Ambulatory dysfunction Discharge Exam Constitutional: no acute distress Eyes: PERRL, conjunctivae normal, anicteric sclerae ENMT: external ear and nose normal, oropharynx normal Respiratory: normal respiratory effort, lungs clear to auscultation Cardiovascular: Rate/Rhythm: + irregularly irregular Extremities: no pedal edema S1 S2 Gastrointestinal (Abdomen): normal bowel sounds, soft, nontender, no hepatosplenomegaly Musculoskeletal: Extremities: no cyanosis Neurologic: AOx2. No focal deficits Discharge Data Allergies Allergy/AdvReac Type Severity Reaction Status Date / Time latex Allergy Unknown skin Verified 12/08/19 21:11 irritation mirtazapine Allergy Rash Verified 12/08/19 21:11 lisinopril AdvReac Unknown COUGH Verified 12/08/19 22:38 Consultations 12/08/19 20:56 ED Decision to Admit Stat 12/08/19 23:05 Consult Cardiology Routine Consult Case Management - Discharge Planning Routine Consult Neurology Routine Ordered Studies 12/08/19 19:54 CT angio head w con Stat CT angio neck with con Stat CT head/brain wo con Stat 12/09/19 23:05 MR brain wo con Routine 12/10/19 16:40 MRI Brain [MR brain wo con] Routine 12/11/19 17:39 FL lumbar puncture diagnostic Routine Hospital Course (1) Stroke-like symptom: 84 y/o F with PMH paroxysmal atrial fibrillation not on anticoagulation secondary to fall and bleeding risk, sick sinus syndrome s/p pacemaker 04/2019, HTN, hypothyroidism, chronic hyponatremia, h/o TIA in 05/2019, h/o intraabdominal hemorrhage in 2017 while on coumadin with unknown source, 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 Exam revealed right sided neglect, apparent expressive and receptive aphasia, and significant weakness including her inability to sit up in bed on her own, a striking difference from being able to independently garden just 24 hours prior. There was clear concern for stroke. CT head revealed no acute intracranial abnormality, CTA head revealed no significant stenosis, occlusion, or aneurysm within the [place]. Moderate atherosclerotic changes to the right vertebral artery was noted and small. There were also multiple lytic changes within the skull suggesting possible myelomatous type change. Neck CTA was performed revealing considerable plaque formation bilaterally including a 30 to 40% narrowing of the carotid bifurcations and proximal internal carotid arteries bilaterally and a 50% narrowing of the right vertebral artery with no evidence for high-grade stenotic process of the vertebrobasilar system. The next day, 12/08, she spiked a fever 39.4C and a repeat chest x-ray revealed no evidence of pneumonia or other infectious etiology. A brain MRI revealed no evidence for an acute acute ischemic process with atrophy and chronic small vessel change noted. Compensatory ventricular enlargement was noted and she did report urinary incontinence and difficulty walking. She was placed on broad spectrum antibiotics and pancultures, with urine and blood cultures negative. Out of concern for ?meningoencephalitis in the setting of altered mental status, antivirals were added and a lumbar puncture was performed. This procedure was delayed until 12/10 because of delayed permission from the family to perform the procedure. Cerebrospinal fluid did not appear infected with bacteria and all viral PCR studies were negative. There was mildly elevated total protein that was nonspecific and the patient was clinically improving. Therefore, antibiotics and antivirals were stopped. She continued to improve clinically. She is known to have persistent atrial fibrillation and sick sinus syndrome status post prior pacemaker insertion. She does have a history of prior TIA and is high risk for stroke moving forward, however, anticoagulation is not an option with her history of intra-abdominal and intracranial bleeding while on warfarin. She did develop rapid ventricular response while admitted and was placed on a diltiazem drip for a short period of time. Cardiology was consulted and follow her progress during this time. Neurology was consulted and noted a subtle area of higher density in the brain MRI in the dorsal central midbrain that might have explained some of her presentation and may may represent a single area of embolic infarction. An EEG was performed on 12/09 that ruled out seizure focus and ensure that this was not a post ictal state. Overall she improved clinically, although is not quite back to her mental baseline. Additionally, the question was posed if NPH may be a consideration in the setting of urinary incontinence and gait abnormality which was new for her. Per Neurology, this should be more of a chronic issue that develops, and is not likely the cause of her acute change. No opening pressure was recorded from the LP. Enlargement of ventricles on CT head was considered compensatory change related to aging. COVID-19 serology was negative. Orthostatics were checked on day of discharge and were negative. At time of discharge she was hemodynamically stable and afebrile. She was tolerating PO without issue and was sent to SNF for further physical rehabilitation as a transition to home. Consideration may be give to further workup of the skull abnormalities seen on CT imaging. Notably inpatient and outpatient record review reveals no evidence of elevated protein in the blood; SPEP and UPEP screenings have not been performed. Close follow-up with primary care physician is recommended. Additionally, a Neurology follow-up in 8 weeks is recommended. These recommendations and thoughts were discussed with the patient and her daughter at time of discharge form the hospital. (2) Abnormal CT scan, head: Total Time Total Time Spent Total Time Spent (In Minutes): 60 Total Time Includes: Examination of the Patient, Discharge Planning, Medication Reconciliation and Communication With Other Providers Discharge Plan Discharge Items Patient Disposition: Transfer Half-Way Fac Reason For Visit: Altered mental status Discharge Diagnosis: Altered mental status, unclear etiology, resolved Ambulatory dysfunction Condition on Discharge: Good Activity: Per Instructions section Activity Comment: Per physical therapist instructions Non-emergency contact: Primary Care Provider Call non-emergency contact if: you have any medication questions and your symptoms worsen Follow-up/Referrals: PCP,NO [Primary Care Provider] - Diet: Heart Healthy Diet Texture: Pureed (blended smooth) Diet Comment: Meds crushed. Aspiration precautions. Supervise meals. No straws Addtl Attending Provider Instructions: Mrs Don. You were brought to the hospital for altered mental status. You were thoroughly evaluated with multiple scans and lab tests which did not determine specific cause of your change in mental status. You were managed medically with resolution of your altered mental status [facility]. It is recommended that you follow-up with your primary care provider within one week of discharge from the hospital. It is recommended that you followup with [facility] Neurology within 4-6 weeks. Please contact their offive to set this up. It was a pleasure taking care of you! Please call if you have any questions or problems. You can reach a [facility] hospitalist on duty at [facility] 24 hours a day by calling [phone]. Take care of yourself. Judith White, DO [facility] Pending Studies at Discharge: No Stand-Alone Forms: [facility] Skilled Items Patient informed of condition?: Yes DNR: Yes Discharge Level of Care: Skilled Communicable Disease: No Discharge Prognosis: Stable Lines: None Urinary Catheter: No Medications and DC Order Prescriptions: Continued losartan [Cozaar] 50 mg tablet 25 mg PO HS RF: 0 sennosides-docusate sodium [Senna Plus] 8.6-50 mg tablet 1 tab PO DAILY RF: 0 aspirin [Aspir-81] 81 mg Tablet,Delayed Release (Dr/Ec) 81 mg PO DAILY RF: 0 triamcinolone acetonide 0.1 % cream 1 applic TOPICAL UD RF: 0 levothyroxine 100 mcg tablet 100 mcg PO DAILY RF: 0 magnesium oxide [MagOx] 400 mg (241.3 mg magnesium) tablet 400 mg PO DAILY RF: 0 mirtazapine [Remeron] 15 mg tablet 15 mg PO HS RF: 0 hydroxyzine HCl 10 mg tablet 10 mg PO TID PRN (Reason: anxiety/itching) RF: 0 calcium carbonate-vitamin D3 [Calcium 500 + D] 500 mg(1,250mg) -200 unit Tablet 1 tab PO BID RF: 0 acetaminophen [Tylenol] 325 mg Capsule 650 mg PO QID PRN (Reason: Pain) RF: 0 metoprolol succinate 50 mg tablet extended release 24 hr 75 mg PO DAILY RF: 0 Discharge Orders: Discharge Order (Routine); Ordered 12/17/19 Ordered By: Judith White Admission Data Admit Date/Time: 12/08/19 22:01 Attending Provider: Judith White Admit Provider: Judith White Primary Care Provider: PCP,NO Other Providers: Shravan Montilla ; Mark Brown Other Interventions: Discharge Summary Assessment (RN) Last Done: 12/17/19 13:23 DC Date/Time DO NOT enter until pt leaves facility: 12/17/19 15:36
--- NOTE | 2019-12-28 06:00 | Coding Query ---
CODING QUERY To promote full compliance with coding requirements relating to patient care, provider participation is requested in all cases of director of distance learning uncertainty. Please assist us with the question(s) below: Coding Question(s): There is documentation of stroke-like symptom and documentation of suspected MRI negative stroke due to thromboembolism in the setting of non anticoagulated atrial fibrillation and it is not clear if the suspected stroke was still possible or if it was ruled out. Please specify below in your clinical opinion. ( ) Possible/Suspected Stroke ( x) Stroke is Ruled-Out and there is stroke-like symptoms ( ) Other: Please Specify Physician's Response(s): Thank you Iris De Dios Principal Diagnosis: "that condition established after study, to be chiefly responsible for occasioning the admission of the patient to the hospital for care." Co-Existing Principal Diagnosis: "when two or more diagnoses equally meet the criteria for principal diagnosis as determined by the circumstances of admission, diagnostic work up, and/or therapy provided, and the Alphabetic Index, Tabular List, or another coding guideline does not provide sequencing direction, any one of the diagnoses may be sequenced first." "When the physician has documented what appears to be a current diagnosis in the body of the record, but has not included the diagnosis in the final diagnostic statement, the physician should be asked whether the diagnosis should be added." ([facility] 2 QTR90. p3-4) DIDIER
--- NOTE | 2019-12-31 06:13 | Coding Query ---
To promote full compliance with coding requirements relating to patient care, provider participation is requested in all cases of garage worker uncertainty. Please assist us with the question(s) below: Coding Question(s): The diagnosis below was documented in the Progress Notes from 12/08 - 12/14, then subsequently fell off all further documentation. Please indicate if it is still a possible diagnosis or ruled out. Physician's Response(s): SEPSIS ( ) Diagnosed and POA ( x ) Diagnosed and not POA ( ) Ruled out ( ) Other (please specify) MTDD
--- NOTE | 2019-12-31 06:37 | Coding Query ---
CODING QUERY To promote full compliance with coding requirements relating to patient care, provider participation is requested in all cases of button bradder uncertainty. Please assist us with the question(s) below: Coding Question(s): There is documentation of possible Viral Meningitis thru Progress Notes 12/14 and the Discharge Summary documents that there was concern for ?Meningoencephalitis. Please clarify below, in your clinical opinion. ( ) Possible Viral Meningitis ( ) Possible Meningoencephalitis ( ) Viral ( ) Acute NEC ( ) Other: Please Specify ( ) Other: Please Specify (x ) Possible Meningitis and Possible Meningoencephalitis have been Ruled-Out Physician's Response(s): Thank you Iris De Dios Principal Diagnosis: "that condition established after study, to be chiefly responsible for occasioning the admission of the patient to the hospital for care." Co-Existing Principal Diagnosis: "when two or more diagnoses equally meet the criteria for principal diagnosis as determined by the circumstances of admission, diagnostic work up, and/or therapy provided, and the Alphabetic Index, Tabular List, or another coding guideline does not provide sequencing direction, any one of the diagnoses may be sequenced first." "When the physician has documented what appears to be a current diagnosis in the body of the record, but has not included the diagnosis in the final diagnostic statement, the physician should be asked whether the diagnosis should be added." (Source [facility] 2 QTR90. p3-4) DIDIER
== END 2019-12-17 15:36 | DRG 947 ==
LOC: 2S 19:56 → ED 19:56 → SUATTDRO 22:01 → 2S 22:36 → SUATTDRO 12-09 12:21 → 2N 12-16 20:46

== ENCOUNTER 2020-06-13 09:58 | Observation (INO) ==
--- NOTE | 2020-06-13 10:08 | Emergency Department Note ---
Impression & Plan COVID-19, Multiple rib fractures ED Provider Note NAME: NANCY SCHMIDT AGE: 84 SEX: F : 1935 ARRIVES VIA: Ambulance INFORMANT: Patient, ED PROVIDER(S): Vernon Angel MD Chief Complaint: Increasing confusion, fatigue HPI: Patient does present from [place] memory care unit for increasing confusion and fatigue. The patient currently is inpatient due to Covid. Patient denies any shortness of breath or cough but has had some right-sided chest discomfort. The patient did have a recent fall 2019 to may with a scapular fracture. No reported falls. Patient reportedly has been compliant with medications and no reported vomiting. BSG prior to arrival was in the 80s. Patient does have a history of memory issues and this the history is somewhat limited. The patient does not complain of any extremity pain headache or neck pain. Patient states that she is to go to the hospital this afternoon. Patient was told she is in the hospital and understood. ROS: See HPI for pertinent positives and negatives. A total of 10 systems were reviewed and otherwise negative. Past medical history: See below Surgical history: See below Social history: See below Physical Exam: GENERAL: Wearing a mask. NAD, non-toxic. EYE EXAM: Normal conjunctiva. PERRL, no anisocoria and EOM's grossly intact w/o pain. NECK: Supple, no nuchal rigidity, no adenopathy, non-tender. No signs of meningismus. LUNGS: Clear to auscultation. Normal chest wall mechanics. Chest: Mild right-sided chest wall discomfort without overlying skin changes crepitus or flail chest. HEART: Irregularly irregular, no MRG. ABDOMEN: Abdomen soft, non-tender, normo-active bowel sounds, no masses, no rebound or guarding. BACK: Scoliosis noted, lower thoracic upper lumbar discomfort without obvious step-offs bruising or overlying skin changes. SKIN: No rashes and no bruising. UPPER EXTREMITIES: Upper extremities are grossly normal. LOWER EXTREMITIES: Grossly normal, no edema. NEURO EXAM: Awake and alert, follows commands, cranial nerves II-XII grossly intact, normal speech, moves all 4 extremities on command w/o issue. Differential diagnoses: Infection, dehydration, metabolic abnormality, hypo/hyperglycemia, electrolyte disturbance, anemia, hypoxia, cardiac sources, intracerebral event, toxicologic, neurologic, as well as other pathologies. Course: Patient was seen and evaluated the bedside. Full history physical exam was performed. EKG: Indication: Weakness A. fib, RVR, rate of 106, PVCs noted, normal QRS, normal axis, no significant change from comparison EKG May 30, 2020. Imaging Studies: Radiology results as stated below per my review in the radiologist's interpretation: XR ribs RT min 2V w CXR1V CLINICAL HISTORY: Right rib pain COMPARISON STUDY: 12/09/2019 FINDINGS: Erect chest reveals elevation of interstitium consistent with mild pulmonary vascular congestion. The heart is enlarged. Left subclavian bipolar central venous pacemaker. Small pleural effusions are suspected with associated basilar opacities. The bones are osteopenic. There are fractures of the right 10th and 11th and 12th ribs. IMPRESSION: 1. Fractures of the right 10th and 11th and 12th ribs. 2. No evidence of pneumothorax 3. Congestive failure/fluid overload. ACT 112: Negative or not required by law. Electronically signed by: Keven Pineda M.D. 06/13/2020 12:09 PM Dictated: 06/13/20 1206 Transcribed: 06/13/20 1206 XR lumbar spine 2-3V CLINICAL HISTORY: Low back pain COMPARISON STUDY: CT scan dated 05/30/2020 FINDINGS: There is an old severe L1 compression fracture. There are old mild L4 and L5 vertebral body compression fractures. There is a mild scoliosis. There is an age-indeterminate T11 compression deformity. IMPRESSION: 1. Osteopenia and old L1 L4 and L5 vertebral body compression deformities. 2. Age-indeterminate T11 compression deformity. ACT 112: Negative or not required by law. Electronically signed by: Keven Pineda M.D. 06/13/2020 12:06 PM Dictated: 06/13/20 1204 Transcribed: 06/13/20 1204 XR thoracic spine 3V routine CLINICAL HISTORY: Back pain. COMPARISON STUDY: Chest radiograph November 21, 2017. FINDINGS: Several acute right-sided rib fractures are better depicted on the right rib series. Dual-lead left subclavian pacemaker is noted. Suspected small left pleural effusion is present. An old severe L1 compression fracture is noted. A moderate compression fracture of T11 is likely old. Exaggerated kyphosis of the thoracic spine is noted. There is mild multilevel disc space narrowing and moderate osteophytosis of the thoracic spine. IMPRESSION: 1. No acute thoracic spine fracture or subluxation. 2. Old T11 and L1 compression fractures. 3. Several acute mildly displaced right-sided rib fractures which are better depicted on the right rib series. Please see that report for further description. ACT 112: Negative or not required by law. Electronically signed by: Santiago Leon M.D. 06/13/2020 12:13 PM Dictated: 06/13/20 1209 Transcribed: 06/13/201208 CT OF THE HEAD WITHOUT CONTRAST CLINICAL HISTORY: Increasing confusion. COMPARISON STUDY: Head CT May 22, 2020. MRI of the brain June 11, 2019. CT DOSE: 765.09 mGycm TECHNIQUE: Helical axial images of the head were obtained without IV contrast. Automated exposure control was utilized for the study. A dose lowering t echnique was utilized adhering to the principles of ALARA. FINDINGS: No acute intracranial hemorrhage, midline shift or mass effect is present. Basal cisterns are patent. There are no extraaxial collections. Ventricular dilatation is unchanged and likely due to central atrophy. 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 This is unchanged. White matter hypodensities are unchanged. These suggest small vessel disease. There are no findings to suggest acute dural sinus thrombosis or acute territorial infarct. There is no calvarial fracture. Old left nasal bone fracture is incidentally noted. IMPRESSION: No acute intracranial findings. No change in appearance of the brain. ACT 112: Negative or not required by law. Electronically signed by: Santiago Leon M.D. 06/13/2020 11:05 AM Dictated: 06/13/20 1101 Transcribed: 06/13/201100 Cardiac monitoring: An order was placed for continuous cardiac monitoring. The monitor shows a rate of 98 with irregularly irregular rhythm. MDM: Patient was seen due to increased confusion and weakness. Blood work is obtained along with a rapid Covid x-rays were performed given the patient's fall and right-sided chest discomfort and back pain. Patient does have some old back fractures but does have right-sided rib fractures. No reported trauma no overlying skin changes. Patient does have some mild leukopenia which may be consistent with history of Covid as the patie nt did test positive today. Troponin is detectable but not elevated. Given the patient's rib fractures and Covid symptoms along with her memory issues I did speak with the patient's POA and daughter Erika Garcia. She would prefer that the patient stay in the hospital which I do not think is unreasonable given her frail nature. I did speak the on-call hospitalist and the patient was admitted to the [facility] physician group under Dr. Varela. Past Med/Surg History Medical History Anxiety Atrial fibrillation No AC secondary to history of bleeding issues (traumatic brain hemorrhage/intra- abdominal hemorrhage) Chronic hyponatremia Constipation Fracture of neck of scapula HTN (hypertension) Hyperlipidemia Hypomagnesemia Hypothyroidism Osteoarthritis Sick sinus syndrome S/p pacemaker TIA (transient ischemic attack) Possible in December 08, 2019 TIA 05/2019 per records. Last seen by neuro= 01/08/20- follow up PRN. Continue ASA. Surgical History H/O colonoscopy History of pacemaker Family History Other Cancer Social History Smoking Status: Unknown if ever smoked Preferred Language: Trinidadian Communication Ability: Unable Sports Leadership Instructor Required: No Beliefs That Will Affect Care: None marital status: Current Living Situation: Alone Current Living Situation Comment: assisted living current occupational status: retired Feels Safe at Home: Yes Assistive Devices: Walker Allergies Allergies Allergy/AdvReac Type Severity Reaction Status Date / Time latex Allergy Unknown skin Verified 05/18/20 11:51 irritation mirtazapine Allergy Unknown Rash Verified 05/18/20 11:51 lisinopril AdvReac Unknown Cough Verified 05/18/20 11:51 Home Meds Home Medications Medication Instructions Recorded Confirmed aspirin [Aspir-81] 81 mg PO QAM 05/11/19 06/13/20 levothyroxine 100 mcg PO QAM 05/11/19 06/13/20 magnesium oxide [MagOx] 400 mg PO QAM 05/11/19 06/13/20 sennosides-docusate sodium [Senna 1 tab PO QAM 05/11/19 06/13/20 Plus] acetaminophen 650 mg PO Q4H PRN MDD 3000 MG 02/05/20 06/13/20 APAP/24 HOURS atorvastatin 40 mg PO HS 02/05/20 06/13/20 calcium carbonate-vitamin D3 1 tab PO Q12H 02/05/20 06/13/20 [Calcium 500 + D] docusate sodium 100 mg PO QAM 02/05/20 06/13/20 losartan 25 mg PO HS 02/05/20 06/13/20 metoprolol succinate 75 mg PO QAM 02/05/20 06/13/20 polyethylene glycol 3350 17 g PO QAM 02/05/20 06/13/20 mupirocin [Bactroban] 1 applic TOPICAL HS 03/06/20 06/13/20 oxymetazoline [Afrin 2 spray INTRANASAL UD PRN 03/06/20 06/13/20 (oxymetazoline)] lidocaine HCl [Aspercreme 1 applic TOPICAL HS PRN 05/18/20 06/13/20 (lidocaine HCl)] nystatin 1 applic TOPICAL BID PRN 05/18/20 06/13/20 tramadol 50 mg PO BID 05/18/20 06/13/20 Results & Data (ED) Vital Signs Vital Signs - 24 hr 06/13/20 10:04 06/13/20 10:10 06/13/20 10:12 Temperature 37.0 C Temperature Source Oral Pulse Rate 112 H 100 H Pulse Rate [Left Finger] 98 H Respiratory Rate 20 20 24 Respiratory Effort / Characteristics Non-Labored Non-Labored Respiratory Depth Normal Normal Blood Pressure 159/120 H Blood Pressure [Left Arm] 160/109 H Blood Pressure Mean 133 Blood Pressure Mean [Left Arm] 126 Pulse Oximetry 95 95 96 Oxygen Delivery Method Room Air Room Air Room Air Sepsis Recent Fever Within 48 Hours No Sepsis New/Unexplained Change in Mental Status N/A Sepsis Action Taken by Nursing No Action Required 06/13/20 11:31 06/13/20 14:09 Temperature Temperature Source Pulse Rate Pulse Rate [Left Finger] 103 H 102 H Respiratory Rate 22 24 Respiratory Effort / Characteristics Respiratory Depth Blood Pressure Blood Pressure [Left Arm] 189/114 H 162/125 H Blood Pressure Mean Blood Pressure Mean [Left Arm] 139 137 Pulse Oximetry 95 96 Oxygen Delivery Method Room Air Room Air Sepsis Recent Fever Within 48 Hours Sepsis New/Unexplained Change in Mental Status Sepsis Action Taken by Skilled Nursing Medications Current Medication List: was personally reviewed by me Laboratory Data Attestation: I reviewed the patient's lab results. Result diagrams: 06/13/20 10:48 06/13/20 10:48 Lab Results 06/13/20 06/13/20 06/13/20 Range/Units 10:48 10:48 11:16 WBC 4.13 L (4.8-10.8) K/uL RBC 4.87 (4.2-5.4) M/uL Hgb 13.9 (12.0-16.0) g/dL Hct 43.7 (37-47) % MCV 89.7 (80-100) fL MCH 28.5 (25-34) pg MCHC 31.8 L (32-36) g/dL RDW Std Deviation 47.3 H (36.4-46.3) fL RDW Coeff of Del 14.6 H (11.5-14.5) % Plt Count 204 (130-400) K/uL MPV 10.5 H (7.4-10.4) fL Immature Gran % (Auto) 0.0 % Neut % (Auto) 35.9 % Lymph % (Auto) 44.8 % [place] % (Auto) 18.9 % Eos % (Auto) 0.2 % Baso % (Auto) 0.2 % Neut # (Auto) 1.48 (1.4-6.5) K/uL Lymph # (Auto) 1.85 (1.2-3.4) K/uL [place] # (Auto) 0.78 H (0.11-0.59) K/uL Eos # (Auto) 0.01 (0-0.5) K/uL Baso # (Auto) 0.01 (0-0.2) K/uL Immature Gran # (Auto) 0.00 (0.00-0.02) K/uL Sodium 132 L (136-145) mmol/L Potassium (3.5-5.1) mmol/L Chloride 100 (98-107) mmol/L Carbon Dioxide 29 (21-32) mmol/L Anion Gap 3.0 (3-11) BUN 20 H (7-18) mg/dl Creatinine 0.89 (0.6-1.2) mg/dl Est Cr Clr Drug Dosing Not Reportable Est GFR ( Amer) 69.5 Est GFR (Non-Af Amer) 59.9 BUN/Creatinine Ratio 22.1 H (10-20) Glucose 87 (70-99) mg/dl Calcium 8.7 (8.5-10.1) mg/dl Magnesium (1.8-2.4) mg/dl Total Bilirubin 1.2 H (0.2-1) mg/dl AST (15-37) U/L ALT 29 (12-78) U/L Alkaline Phosphatase 183 H (45-117) U/L Troponin I 0.025 (0-0.045) ng/ml Total Protein 7.5 (6.4-8.2) gm/dl Albumin 3.3 L (3.4-5.0) gm/dl Globulin 4.2 H (2.5-4.0) gm/dl Albumin/Globulin Ratio 0.8 L (0.9-2) TSH 0.962 (0.300-4.500) uIu/ml SARS-CoV-2, RNA, NAAT (NEGATIVE) SARS-CoV-2 Ag (Rapid) Positive A* (Negative) 06/13/20 06/13/20 Range/Units 12:32 Unknown WBC (4.8-10.8) K/uL RBC (4.2-5.4) M/uL Hgb (12.0-16.0) g/dL Hct (37-47) % MCV (80-100) fL MCH (25-34) pg MCHC (32-36) g/dL RDW Std Deviation (36.4-46.3) fL RDW Coeff of Del (11.5-14.5) % Plt Count (130-400) K/uL MPV (7.4-10.4) fL Immature Gran % (Auto) % Neut % (Auto) % Lymph % (Auto) % [place] % (Auto) % Eos % (Auto) % Baso % (Auto) % Neut # (Auto) (1.4-6.5) K/uL Lymph # (Auto) (1.2-3.4) K/uL [place] # (Auto) (0.11-0.59) K/uL Eos # (Auto) (0-0.5) K/uL Baso # (Auto) (0-0.2) K/uL Immature Gran # (Auto) (0.00-0.02) K/uL Sodium (136-145) mmol/L Potassium Cancelled (3.5-5.1) mmol/L Chloride (98-107) mmol/L Carbon Dioxide (21-32) mmol/L Anion Gap (3-11) BUN (7-18) mg/dl Creatinine (0.6-1.2) mg/dl Est Cr Clr Drug Dosing Est GFR ( Amer) Est GFR (Non-Af Amer) BUN/Creatinine Ratio (10-20) Glucose (70-99) mg/dl Calcium (8.5-10.1) mg/dl Magnesium Cancelled (1.8-2.4) mg/dl Total Bilirubin (0.2-1) mg/dl AST Cancelled (15-37) U/L ALT (12-78) U/L Alkaline Phosphatase (45-117) U/L Troponin I (0-0.045) ng/ml Total Protein (6.4-8.2) gm/dl Albumin (3.4-5.0) gm/dl Globulin (2.5-4.0) gm/dl Albumin/Globulin Ratio (0.9-2) TSH (0.300-4.500) uIu/ml SARS-CoV-2, RNA, NAAT POSITIVE A* (NEGATIVE) SARS-CoV-2 Ag (Rapid) (Negative) Administered Medications Discontinued Medications Sodium Chloride (Nss 1000ml) 1,000 mls @ 999 mls/hr IV .Q1H1M DONNA Stop: 06/13/20 11:30 Last Infusion: 06/13/20 11:53 Dose: 0 mls/hr Documented by: [id number] Admin: 06/13/20 10:53 Dose: 999 mls/hr Documented by: [id number] Discharge Plan Visit Data Chief Complaint: Confusion Stated Complaint: Increased confusion, Possible COVID-19 ED Provider: Vernon Angel Discharge Problem: COVID-19, Multiple rib fractures Forms Stand Alone Forms: [facility] Prescriptions Prescriptions: No Action sennosides-docusate sodium [Senna Plus] 8.6-50 mg tablet 1 tab PO QAM RF: 0 aspirin [Aspir-81] 81 mg Tablet,Delayed Release (Dr/Ec) 81 mg PO QAM RF: 0 levothyroxine 100 mcg tablet 100 mcg PO QAM RF: 0 magnesium oxide [MagOx] 400 mg (241.3 mg magnesium) tablet 400 mg PO QAM RF: 0 atorvastatin 40 mg tablet 40 mg PO HS RF: 0 acetaminophen 325 mg Tablet 650 mg PO Q4H MDD 3000 MG APAP/24 HOURS PRN (Reason: Fever Or Pain) RF: 0 losartan 25 mg tablet 25 mg PO HS RF: 0 docusate sodium 100 mg Capsule 100 mg PO QAM RF: 0 metoprolol succinate 25 mg tablet extended release 24 hr 75 mg PO QAM RF: 0 polyethylene glycol 3350 17 gram/dose Powder 17 g PO QAM RF: 0 calcium carbonate-vitamin D3 [Calcium 500 + D] 500 mg(1,250mg) -400 unit Tablet 1 tab PO Q12H RF: 0 oxymetazoline [Afrin (oxymetazoline)] 0.05 % [place],Non-Aerosol 2 spray INTRANASAL UD PRN (Reason: nosebleeds) RF: 0 mupirocin [Bactroban] 2 % Ointment 1 applic TOPICAL HS RF: 0 tramadol 50 mg Tablet 50 mg PO BID RF: 0 nystatin 100,000 unit/gram Cream 1 applic TOPICAL BID PRN (Reason: Skin Irritation) RF: 0 lidocaine HCl [Aspercreme (lidocaine HCl)] 4 % Cream 1 applic TOPICAL HS PRN (Reason: Pain) RF: 0 Discharge Problem: Multiple rib fractures Qualifiers: Encounter type: initial encounter Fracture type: closed Laterality: right Qualified Code(s): S22.41XA - Multiple fractures of ribs, right side, initial encounter for closed fracture
[2020-06-13] MEDS ORDERED: SODIUM CHLORIDE 0.9% 1000ML 1,000 ML IV SCH (10:30)
[2020-06-13 10:59] LABS: Basophils # (auto) 0.01 K/uL (0-0.2); Basophils % (auto) 0.2 %; Eosinophils # (auto) 0.01 K/uL (0-0.5); Eosinophils % (auto) 0.2 %; Hematocrit (blood only) 43.7 % (37-47); Hemoglobin 13.9 g/dL (12.0-16.0); Lymphocytes # (auto) 1.85 K/uL (1.2-3.4); Lymphocytes % (auto) 44.8 %; Mean Corpuscular Hemoglobin 28.5 pg (25-34); Mean Corpuscular Hgb Conc 31.8 g/dL (32-36); Mean Corpuscular Volume 89.7 fL (80-100); Mean Platelet Volume 10.5 fL (7.4-10.4); Monocytes # (auto) 0.78 K/uL (0.11-0.59); Monocytes % (auto) 18.9 %; Neutrophils # (auto) 1.48 K/uL (1.4-6.5); Neutrophils % (auto) 35.9 %; Platelet Count 204 K/uL (130-400); RDW Coefficient of Variation 14.6 % (11.5-14.5); RDW Standard Deviation 47.3 fL (36.4-46.3); Red Blood Count 4.87 M/uL (4.2-5.4); White Blood Count 4.13 K/uL (4.8-10.8)
--- NOTE | 2020-06-13 11:06 | CT Scan Report ---
CT OF THE HEAD WITHOUT CONTRAST CLINICAL HISTORY: Increasing confusion. COMPARISON STUDY: Head CT May 22, 2020. MRI of the brain June 11, 2019. CT DOSE: 765.09 mGycm TECHNIQUE: Helical axial images of the head were obtained without IV contrast. Automated exposure con trol was utilized for the study. A dose lowering technique was utilized adhering to the principles o f ALARA. FINDINGS: No acute intracranial hemorrhage, midline shift or mass effect is present. Basal cisterns a re patent. There are no extraaxial collections. Ventricular dilatation is unchanged and likely due to central atrophy. 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 This is unchanged. White matter hypodensities are unchanged. These suggest smal l vessel disease. There are no findings to suggest acute dural sinus thrombosis or acute territorial infarct. There is no calvarial fracture. Old left nasal bone fracture is incidentally noted. IMPRESSION: No acute intracranial findings. No change in appearance of the brain. ACT 112: Negative or not required by law. Electronically signed by: Santiago Leon M.D. 06/13/2020 11:05 AM
[2020-06-13 11:36] LABS: Alanine Aminotransferase 29 U/L (12-78); Albumin Globulin Ratio 0.8 (0.9-2); Albumin Level 3.3 gm/dl (3.4-5.0); Alkaline Phosphatase 183 U/L (45-117); BUN Creatinine Ratio 22.1 (10-20); Bilirubin,Total 1.2 mg/dl (0.2-1); Blood Urea Nitrogen 20 mg/dl (7-18); Calcium 8.7 mg/dl (8.5-10.1); Carbon Dioxide 29 mmol/L (21-32); Chloride 100 mmol/L (98-107); Est GFR (African American) 69.5; Est GFR (Non-African American) 59.9; Globulin 4.2 gm/dl (2.5-4.0); Glucose 87 mg/dl (70-99); Sodium 132 mmol/L (136-145); Thyroid Stimulating Hormone 0.962 uIu/ml (0.300-4.500); Total Protein 7.5 gm/dl (6.4-8.2); Troponin I 0.025 ng/ml (0-0.045)
--- NOTE | 2020-06-13 12:08 | XRay Report ---
XR lumbar spine 2-3V CLINICAL HISTORY: Low back pain COMPARISON STUDY: CT scan dated 05/30/2020 FINDINGS: There is an old severe L1 compression fracture. There are old mild L4 and L5 vertebral body compression fractures. There is a mild scoliosis. There is an age-indeterminate T11 compression defo rmity. IMPRESSION: 1. Osteopenia and old L1 L4 and L5 vertebral body compression deformities. 2. Age-indeterminate T11 compression deformity. ACT 112: Negative or not required by law. Electronically signed by: Keven Pineda M.D. 06/13/2020 12:06 PM
--- NOTE | 2020-06-13 12:10 | XRay Report ---
XR ribs RT min 2V w CXR1V CLINICAL HISTORY: Right rib pain COMPARISON STUDY: 12/09/2019 FINDINGS: Erect chest reveals elevation of interstitium consistent with mild pulmonary vascular conge stion. The heart is enlarged. Left subclavian bipolar central venous pacemaker. Small pleural effusio ns are suspected with associated basilar opacities. The bones are osteopenic. There are fractures of the right 10th and 11th and 12th ribs. IMPRESSION: 1. Fractures of the right 10th and 11th and 12th ribs. 2. No evidence of pneumothorax 3. Congestive failure/fluid overload. ACT 112: Negative or not required by law. Electronically signed by: Keven Pineda M.D. 06/13/2020 12:09 PM
--- NOTE | 2020-06-13 12:15 | XRay Report ---
XR thoracic spine 3V routine CLINICAL HISTORY: Back pain. COMPARISON STUDY: Chest radiograph November 21, 2017. FINDINGS: Several acute right-sided rib fractures are better depicted on the right rib series. Dual-l ead left subclavian pacemaker is noted. Suspected small left pleural effusion is present. An old jimbo re L1 compression fracture is noted. A moderate compression fracture of T11 is likely old. Exaggerate d kyphosis of the thoracic spine is noted. There is mild multilevel disc space narrowing and moderate osteophytosis of the thoracic spine. IMPRESSION: 1. No acute thoracic spine fracture or subluxation. 2. Old T11 and L1 compression fractures. 3. Several acute mildly displaced right-sided rib fractures which are better depicted on the right ri b series. Please see that report for further description. ACT 112: Negative or not required by law. Electronically signed by: Santiago Leon M.D. 06/13/2020 12:13 PM
--- NOTE | 2020-06-13 13:17 | Electrocardiogram Report ---
Test Reason : Blood Pressure : / mmHG Vent. Rate : 106 BPM Atrial Rate : 125 BPM P-R Int : 000 ms QRS Dur : 082 ms QT Int : 186 ms P-R-T Axes : 000 -25 249 degrees QTc Int : 247 ms Atrial fibrillation with rapid ventricular response with occasional ventricular-paced complexes and w ith premature ventricular or aberrantly conducted complexes Abnormal ECG When compared with ECG of 30-MAY-2020 17:55, No significant change was found Confirmed by Hema Hinkle ([id number]) on 06/13/2020 1:16:40 PM Referred By: Confirmed By:Hema Hinkle
--- NOTE | 2020-06-13 13:20 | History & Physical Report ---
Date of Service June 13, 2020 Assessment & Plan (1) AMS (altered mental status): Presented with generalized weakness and worsening mental status than baseline, with baseline dementia. Likely acute metabolic encephalopathy secondary to Covid-19 in the setting of baseline dementia -Admit on observation to medical/surgical floor and observe for improvement/worsening -Redirection and supportive care as needed, promote good sleep/wake cycles -Treatment for Covid-19 as below Otherwise, awaiting urinalysis to make sure no UTI -Treating with normal saline for mild hyponatremia which may be contributing slightly to her altered mental status (2) COVID-19: Patient with exposure to with Covid-19 approximately 5 to 6 days ago when they were last together before he was admitted to the hospital It is unclear when she became symptomatic, but likely sometime in the last 24 hours with her encephalopathy noted as above She is not hypoxic at the time of admission If became hypoxic, would recommend treatment with dexamethasone, remdesivir, and convalescent plasma-this was all discussed with her daughter on the phone at the time of admission For now, supportive care, observation Diet as tolerated and hold off on IV fluids for now as she received a liter of normal saline in the ER Follow CBC, CMP in the morning (3) Persistent atrial fibrillation: With mild rapid atrial fibrillation low 100s upon arrival Received IV fluids She also missed her metoprolol dose this morning Her usual Toprol-XL 75 mg p.o. once daily was given in the afternoon after admission Continue metoprolol She is not on anticoagulation due to history of intracranial hemorrhage, multiple falls, and hemoperitoneum in the past Has pacemaker in place for SSS (4) Fracture of neck of scapula: From a fall on 05/30 Seen by orthopedics as an outpatient recommended sling x6 weeks Sling was ordered for here (5) Hypertension: Blood pressures significantly elevated upon admission likely due to missing her antihypertensives Give Toprol-XL now and continue on losartan at bedtime (6) Chronic hyponatremia: Sodium 132 on admission which is not far off her baseline Normal saline 1 L was given in the ER Follow CMP in the morning (7) Stroke: With a history of stroke in the past With history of atrial fibrillation but cannot tolerate anticoagulation as above due to history of ICH, hemoperitoneum, and multiple falls Continue with aspirin only and statin (8) History of pacemaker: Placed for SSS (9) Hypothyroidism: TSH here is normal at 0.9 Continue home levothyroxine (10) Multiple rib fractures: Found to have acute rib fractures on the right [id number] ribs She does not seem to have any discomfort here There is no pneumothorax Most likely secondary to her fall on 05/30-at that time, no imaging was performed on the chest/ribs Supportive care, pain control as needed Will order incentive spirometry (11) DVT prophylaxis: SCDs only given history of spontaneous bleeding in the past Disposition-bring in on observation to the Covid mares PT/OT consultations placed, at baseline she needs assistance to get from bed to wheelchair and uses wheelchair all around her dementia/memory care personal mcfp History of Present Illness Chief Complaint: Altered mental status, Covid-19 Primary Care Provider: [facility] This patient is an 84-year-old female with a history of dementia, TIA/CVA, HTN, A. fib, PPM for SSS, hyperlipidemia, hypothyroidism, constipation, osteoporosis with vertebral compression fractures, who resides at the dementia unit of [facility], who presents with altered mental status and has complaints of left sided posterior chest wall pain and increased weakness. History is limited by her dementia. She is able to tell me that she has some pain in her left posterior upper back. Says she has a little SOB, but no chest pain. No nausea and is feeling hungry, denies diarrhea. She tested positive for COVID in the ER and her is currently in the hospital with COVID for the last 5 days. Review of the chart shows that she had a fall on 05/30 was seen in the ER and diagnosed with a left scapular fracture, but CT of the cervical spine, head, and lumbar spine only otherwise showed old vertebral compression fractures. In ER here today, she was found to have fractures of the right 10th, 11th, and 12th ribs and some mild volume overload in the lungs with associated basilar opacities and small pleural effusions, but no pneumothorax. She was mildly hypertensive and tachycardic with atrial fibrillation with rates in the low 100s. She had some ST and T wave abnormalities in the lateral leads which was unchanged from previous. Mildly hyponatremic. She was given 1 L of normal saline. She was not hypoxic. The ER physician discussed her care with the patient's daughter who wanted her to be admitted overnight for observation. Allergies Allergy/AdvReac Type Severity Reaction Status Date / Time latex Allergy Unknown skin Verified 05/18/20 11:51 irritation mirtazapine Allergy Unknown Rash Verified 05/18/20 11:51 lisinopril AdvReac Unknown Cough Verified 05/18/20 11:51 Home Medications Medication Instructions Recorded Confirmed Type aspirin [Aspir-81] 81 mg PO QAM 05/11/19 06/13/20 History levothyroxine 100 mcg PO QAM 05/11/19 06/13/20 History magnesium oxide [MagOx] 400 mg PO QAM 05/11/19 06/13/20 History sennosides-docusate sodium [Senna 1 tab PO QAM 05/11/19 06/13/20 History Plus] acetaminophen 650 mg PO Q4H PRN MDD 3000 MG 02/05/20 06/13/20 History APAP/24 HOURS atorvastatin 40 mg PO HS 02/05/20 06/13/20 History calcium carbonate-vitamin D3 1 tab PO Q12H 02/05/20 06/13/20 History [Calcium 500 + D] docusate sodium 100 mg PO QAM 02/05/20 06/13/20 History losartan 25 mg PO HS 02/05/20 06/13/20 History metoprolol succinate 75 mg PO QAM 02/05/20 06/13/20 History polyethylene glycol 3350 17 g PO QAM 02/05/20 06/13/20 History mupirocin [Bactroban] 1 applic TOPICAL HS 03/06/20 06/13/20 History oxymetazoline [Afrin 2 spray INTRANASAL UD PRN 03/06/20 06/13/20 History (oxymetazoline)] lidocaine HCl [Aspercreme 1 applic TOPICAL HS PRN 05/18/20 06/13/20 History (lidocaine HCl)] nystatin 1 applic TOPICAL BID PRN 05/18/20 06/13/20 History tramadol 50 mg PO BID 05/18/20 06/13/20 History Past Med/Surg History Medical History Anxiety Atrial fibrillation No AC secondary to history of bleeding issues (traumatic brain hemorrhage/intra- abdominal hemorrhage) Chronic hyponatremia Constipation Fracture of neck of scapula HTN (hypertension) Hyperlipidemia Hypomagnesemia Hypothyroidism Osteoarthritis Sick sinus syndrome S/p pacemaker TIA (transient ischemic attack) Possible in December 08, 2019 TIA 05/2019 per records. Last seen by neuro= 01/08/20- follow up PRN. Continue ASA. Surgical History H/O colonoscopy History of pacemaker Family History Other Cancer Social History Smoking Status: Unknown if ever smoked Hx Alcohol Use: Yes Preferred Language: Y[place] Communication Ability: Unable Communication Ability Comment: Pt. is alert top person only Collar Runner Required: No Beliefs That Will Affect Care: None marital status: Current Living Situation: Spouse Current Living Situation Comment: [employer] current occupational status: retired Other Information That Helps Us Care for You: No Feels Safe at Home: Yes Safety Concerns: Feels Safe At This Time Assistive Devices: Oxygen - Continuous Assistive Devices Comment: per pt. Review of Systems Review of Systems: All systems reviewed & are unremarkable except as noted in HPI & below Physical Exam Constitutional: WD/WN, vitals as above Eyes: PERRL, conjunctivae normal, anicteric sclerae ENMT: external ear and nose normal, oropharynx normal Neck: trachea midline, no thyromegaly Respiratory: normal respiratory effort, lungs clear to auscultation Cardiovascular: Rate/Rhythm: + tachycardic and + irregularly irregular Heart Sounds: no murmur Extremities: no calf tenderness and no edema Chest (Breasts): Chest: normal inspection of chest Gastrointestinal (Abdomen): normal bowel sounds, soft, nontender, no hepatosplenomegaly Musculoskeletal: Extremities: extremities normal to inspection; no cyanosis and no clubbing With tenderness palpation over left scapula Skin: no rashes, warm and dry Neurologic: moves all extremities and awake; no focal motor deficits Psychiatric: Orientation: alert, oriented to place (Knows it is a "hospital" but does not know the name of the hospital), oriented to time (Knows the month but not the year and the date) and cooperative Eye Contact: good eye contact Motor Behavior: n tremor Speech: normal rate/rhythm/volume of speech Affect: euthymic affect Lymphatic: no lymphedema Results & Data Results & Data ([facility]) Vital Signs (Past 12 Hours) Vital Signs Temp Pulse Pulse Resp BP BP Pulse Ox 06/13/20 11:31 103 H 22 189/114 H 95 06/13/20 10:12 98 H 24 160/109 H 96 06/13/20 10:10 100 H 20 95 06/13/20 10:04 37.0 C 112 H 20 159/120 H 95 Laboratory Results 06/13/20 06/13/20 06/13/20 Range/Units Unknown 13:59 12:32 WBC (4.8-10.8) K/uL RBC (4.2-5.4) M/uL Hgb (12.0-16.0) g/dL Hct (37-47) % MCV (80-100) fL MCH (25-34) pg MCHC (32-36) g/dL RDW Std Deviation (36.4-46.3) fL RDW Coeff of Del (11.5-14.5) % Plt Count (130-400) K/uL MPV (7.4-10.4) fL Immature Gran % (Auto) % Neut % (Auto) % Lymph % (Auto) % [place]ukes % (Auto) % Eos % (Auto) % Baso % (Auto) % Neut # (Auto) (1.4-6.5) K/uL Lymph # (Auto) (1.2-3.4) K/uL [place]ukes # (Auto) (0.11-0.59) K/uL Eos # (Auto) (0-0.5) K/uL Baso # (Auto) (0-0.2) K/uL Immature Gran # (Auto) (0.00-0.02) K/uL Sodium (136-145) mmol/L Potassium 3.5 Cancelled (3.5-5.1) mmol/L Chloride (98-107) mmol/L Carbon Dioxide (21-32) mmol/L Anion Gap (3-11) BUN (7-18) mg/dl Creatinine (0.6-1.2) mg/dl Est Cr Clr Drug Dosing Est GFR ( Amer) Est GFR (Non-Af Amer) BUN/Creatinine Ratio (10-20) Glucose (70-99) mg/dl Calcium (8.5-10.1) mg/dl Magnesium 2.0 Cancelled (1.8-2.4) mg/dl Total Bilirubin (0.2-1) mg/dl AST 30 Cancelled (15-37) U/L ALT (12-78) U/L Alkaline Phosphatase (45-117) U/L Troponin I (0-0.045) ng/ml Total Protein (6.4-8.2) gm/dl Albumin (3.4-5.0) gm/dl Globulin (2.5-4.0) gm/dl Albumin/Globulin Ratio (0.9-2) TSH (0.300-4.500) uIu/ml SARS-CoV-2, RNA, NAAT POSITIVE A* (NEGATIVE) SARS-CoV-2 Ag (Rapid) (Negative) 06/13/20 06/13/20 06/13/20 Range/Units 11:16 10:48 10:48 WBC 4.13 L (4.8-10.8) K/uL RBC 4.87 (4.2-5.4) M/uL Hgb 13.9 (12.0-16.0) g/dL Hct 43.7 (37-47) % MCV 89.7 (80-100) fL MCH 28.5 (25-34) pg MCHC 31.8 L (32-36) g/dL RDW Std Deviation 47.3 H (36.4-46.3) fL RDW Coeff of Del 14.6 H (11.5-14.5) % Plt Count 204 (130-400) K/uL MPV 10.5 H (7.4-10.4) fL Immature Gran % (Auto) 0.0 % Neut % (Auto) 35.9 % Lymph % (Auto) 44.8 % Dukes % (Auto) 18.9 % Eos % (Auto) 0.2 % Baso % (Auto) 0.2 % Neut # (Auto) 1.48 (1.4-6.5) K/uL Lymph # (Auto) 1.85 (1.2-3.4) K/uL Dukes # (Auto) 0.78 H (0.11-0.59) K/uL Eos # (Auto) 0.01 (0-0.5) K/uL Baso # (Auto) 0.01 (0-0.2) K/uL Immature Gran # (Auto) 0.00 (0.00-0.02) K/uL Sodium 132 L (136-145) mmol/L Potassium (3.5-5.1) mmol/L Chloride 100 (98-107) mmol/L Carbon Dioxide 29 (21-32) mmol/L Anion Gap 3.0 (3-11) BUN 20 H (7-18) mg/dl Creatinine 0.89 (0.6-1.2) mg/dl Est Cr Clr Drug Dosing Not Reportable Est GFR ( Amer) 69.5 Est GFR (Non-Af Amer) 59.9 BUN/Creatinine Ratio 22.1 H (10-20) Glucose 87 (70-99) mg/dl Calcium 8.7 (8.5-10.1) mg/dl Magnesium (1.8-2.4) mg/dl Total Bilirubin 1.2 H (0.2-1) mg/dl AST (15-37) U/L ALT 29 (12-78) U/L Alkaline Phosphatase 183 H (45-117) U/L Troponin I 0.025 (0-0.045) ng/ml Total Protein 7.5 (6.4-8.2) gm/dl Albumin 3.3 L (3.4-5.0) gm/dl Globulin 4.2 H (2.5-4.0) gm/dl Albumin/Globulin Ratio 0.8 L (0.9-2) TSH 0.962 (0.300-4.500) uIu/ml SARS-CoV-2, RNA, NAAT (NEGATIVE) SARS-CoV-2 Ag (Rapid) Positive A* (Negative) Diagnostic Findings CT head noncontrast-no acute intracranial findings Lumbar spine [id number] and old L1, L4, and L5 vertebral body compression deformities, age indeterminate T11 compression deformity Ribs with chest [id number] of the right 10th and 11th and 12th ribs, no pneumothorax, congestive failure/fluid overload Thoracic spine x-ray-no acute thoracic spine fracture or subluxation, old T11 and L1 compression fractures, several acute mildly displaced right-sided rib fractures which are better depicted on the right rib series ECG Additional Comments: ECG on 06/13/2020 at 1006 with atrial fibrillation with occasional ventricular paced complexes and with PVCs, rate 106, ST and T wave abnormality in the lateral leads, unchanged from previous Code Status & VTE Plan Code Status DNR/DNI VTE Prophylaxis Plan VTE Prophylaxis will be ordered: Yes PG Care Time/CCT Total # of Minutes Spent Total Time Spent with Patient: Total time spent is greater than 50% in coordination of care (as documented) at patient's floor/unit and/or counseling patient: Coding Level of Care Code 41888 OBS Care - Level 3 Diagnoses AMS (altered mental status) R41.82 Altered mental status type: unspecified COVID-19 U07.1 Persistent atrial fibrillation I48.19 Fracture of neck of scapula S42.153A Hypertension I10 Hypertension type: unspecified Chronic hyponatremia E87.1 Stroke I63.9 History of pacemaker Z95.0 Hypothyroidism E03.9 Multiple rib fractures S22.41XA Encounter type: initial encounter Fracture type: closed Laterality: right DVT prophylaxis Z29.9 (1) AMS (altered mental status) Altered mental status type: unspecified Qualified Code(s): R41.82 - Altered mental status, unspecified (2) Hypertension Hypertension type: unspecified Qualified Code(s): I10 - Essential (primary) hypertension (3) Multiple rib fractures Encounter type: initial encounter Fracture type: closed Laterality: right Qualified Code(s): S22.41XA - Multiple fractures of ribs, right side, initial encounter for closed fracture
[2020-06-13 14:25] LABS: Potassium 3.5 mmol/L (3.5-5.1)
[2020-06-13] MEDS ORDERED: ONDANSETRON INJ 2 MG/ML 2 ML VIAL IV PRN (15:36)
[2020-06-13] MEDS ORDERED: OXYMETAZOLINE 0.05% 30 ML BTL NAE PRN (15:36)
[2020-06-13] MEDS ORDERED: ACETAMINOPHEN 325 MG TAB PO PRN ×2 (15:36)
[2020-06-13] MEDS ORDERED: LIDOCAINE 4% CREAM 15 GM TUBE EXT PRN (15:52)
[2020-06-13] MEDS: METOPROLOL SUCC 25MG EXT REL TAB PO SCH (16:51)
[2020-06-13] MEDS: CALCIUM 600MG + VIT D 400 IU TAB PO SCH (21:47)
[2020-06-13] MEDS: LOSARTAN POTASSIUM 25 MG TAB PO SCH (21:47)
[2020-06-13] MEDS: ATORVASTATIN 40 MG TAB PO SCH (21:47)
[2020-06-13] MEDS: traMADol HCL 50 MG TABLET PO SCH (21:49)
[2020-06-14] MEDS: LEVOTHYROXINE SODIUM 100 MCG TABLET PO SCH (06:16)
[2020-06-14 06:20] LABS: Basophils # (auto) 0.01 K/uL (0-0.2); Basophils % (auto) 0.3 %; Hematocrit (blood only) 39.5 % (37-47); Hemoglobin 12.9 g/dL (12.0-16.0); Immature Granulocytes # (auto) 0.01 K/uL (0.00-0.02); Immature Granulocytes % (auto) 0.3 %; Lymphocytes % (auto) 43.4 %; Mean Corpuscular Hemoglobin 29.1 pg (25-34); Mean Corpuscular Hgb Conc 32.7 g/dL (32-36); Mean Platelet Volume 10.6 fL (7.4-10.4); Monocytes # (auto) 0.57 K/uL (0.11-0.59); Monocytes % (auto) 16.5 %; Neutrophils # (auto) 1.37 K/uL (1.4-6.5); Neutrophils % (auto) 39.5 %; Platelet Count 194 K/uL (130-400); RDW Coefficient of Variation 14.5 % (11.5-14.5); RDW Standard Deviation 46.8 fL (36.4-46.3); Red Blood Count 4.44 M/uL (4.2-5.4); White Blood Count 3.46 K/uL (4.8-10.8)
[2020-06-14 06:51] LABS: Albumin Level 2.9 gm/dl (3.4-5.0); Calcium 8.6 mg/dl (8.5-10.1); Creatinine Clr Calc Pharmacy 60.7 ml/min; Est GFR (African American) 89.8; Est GFR (Non-African American) 77.4; Potassium 3.6 mmol/L (3.5-5.1)
[2020-06-14 06:56] LABS: Albumin Globulin Ratio 0.9 (0.9-2); Globulin 3.4 gm/dl (2.5-4.0); Total Protein 6.3 gm/dl (6.4-8.2)
[2020-06-14] MEDS: CALCIUM 600MG + VIT D 400 IU TAB PO SCH ×2 (08:52→20:38)
[2020-06-14] MEDS: ASPIRIN 81 MG ECTAB PO SCH (08:52)
[2020-06-14] MEDS: POLYETHYLENE (MIRALAX) 17 GM PACK PO SCH (08:52)
[2020-06-14] MEDS: DOCUSATE SODIUM 100 MG CAP PO SCH (08:52)
[2020-06-14] MEDS: MAGNESIUM OXIDE 400 MG TAB PO SCH (08:53)
[2020-06-14] MEDS: DOCUSATE SODIUM/SENNA 50/8.6MG TAB PO SCH (08:53)
[2020-06-14] MEDS: METOPROLOL SUCC 25MG EXT REL TAB PO SCH (08:53)
[2020-06-14] MEDS: traMADol HCL 50 MG TABLET PO SCH ×2 (08:56→20:38)
[2020-06-14] MEDS: LIDOCAINE 5% 1 PATCH TD SCH (11:56)
[2020-06-14] MEDS ORDERED: bisacodyL 10 MG SUPP PR STA (14:01)
[2020-06-14] MEDS: ACETAMINOPHEN 500 MG TAB PO SCH ×2 (15:20→21:19)
[2020-06-14 16:51] LABS: Appearance Urine Cloudy (Clear); Bacteria Urine Automated 4+ (Negative); Bilirubin Urine Negative (Negative); Blood Urine Trace (Negative); Color Urine Dark Yellow; Epithelial Cell Urine Auto 0-5 /lpf (0-5); Glucose Urine UA Negative (Negative); Ketones Urine Trace (Negative); Leukocyte Esterase Urine 2+ (Negative); Nitrite Urine Negative (Negative); Protein Urine Trace (Negative); RBC Urine Automated 0-4 /hpf (0-4); Specific Gravity Urine 1.022 (1.000-1.030); Urobilinogen Urine Negative (Negative); WBC Urine Automated >30 /hpf (0-5)
[2020-06-14] MEDS: LOSARTAN POTASSIUM 25 MG TAB PO SCH (20:38)
[2020-06-14] MEDS: ATORVASTATIN 40 MG TAB PO SCH (20:38)
[2020-06-14] MEDS ORDERED: traMADol HCL 50 MG TABLET PO PRN (20:58)
--- NOTE | 2020-06-14 21:00 | Hospitalist Progress Note ---
Date of Service June 14, 2020 Assessment & Plan (1) COVID-19: Patient with exposure to with Covid-19 approximately 5 to 6 days ago when they were last together at [place]. It is unclear when she became symptomatic - last 24-48 hours ?? Deferring on dexamethasone, remdesivir, and convalescent plasma -- no hypoxia or obvious pneumonia. Supportive care. (2) Metabolic encephalopathy: 2nd to COVID-19 infection. Supportive care. (3) Persistent atrial fibrillation: Continue metoprolol She is not on anticoagulation due to history of intracranial hemorrhage, multiple falls, and hemoperitoneum in the past Has pacemaker in place for SSS (4) Fracture of neck of scapula: 2nd to fall on 05/30/20 Seen by orthopedics as an outpatient Conservative Rx recommended with sling x 6 weeks (5) Hypertension: cont outpatient meds (6) Chronic hyponatremia: low 130s at baseline repeat BMP am low-grade SIADH? reset osmostat? (7) Stroke: history of unfortunately, even despite a.fib, not anticoagulation candidate due to history of ICH, hemoperitoneum, and multiple falls (8) History of pacemaker: Placed for SSS (9) Hypothyroidism: TSH normal at 0.9 Continue home levothyroxine (10) Multiple rib fractures: Acute rib fractures on the right [id number] ribs - likely due to recent fall lidoderm patches (11) Chronic kidney disease, stage 3a: baseline CrCL 40s/50s bmp am (12) Dementia: lives in [facility] with (13) Dysphagia: spoke with speech - was on pureed in past prolonged mastication during my bedside visit today speech to see and put in recs (14) UTI (urinary tract infection): start rocephin 1gm daily follow culture (15) DVT prophylaxis: SCDs only given history of spontaneous bleeding in the past I am concerned about her prognosis given what she looks like today daughter updated by phone Admission and Anticipated Discharge Date Admission Date: June 14, 2020 Subjective patient slumped over in chair but awoke when I called her name. her right hand was touching her lunch plate. when she awoke she had mouth full of food. she proceeded to chew for then next 5-10 minutes but never swallowed her food. I encouraged her to do so. could not give me any meaningful history or ROS during the visit. staff report occasional desaturation with sleep but while awake sats are upper 90s. Review of Systems Review of Systems: Unobtainable due to cognitive status Physical Exam Constitutional: + ill appearing, + altered mental status and + frail appearing; no acute distress ENMT: Mouth: + dry oral mucous membranes Respiratory: normal respiratory effort, lungs clear to auscultation Cardiovascular: Rate/Rhythm: regular rate and + irregularly irregular Heart Sounds: normal S1 and normal S2 Vessels: posterior tibial pulses present and dorsalis pedis pulses present; no JVD Gastrointestinal (Abdomen): Inspection/Auscultation: + abdomen distended and normal bowel sounds Percussion/Palpation: abdomen nontender Musculoskeletal: left shoulder / arm in sling Psychiatric: Orientation: + not alert (but did wake up and speak during the visit ) and + not oriented x 3 Results & Data Results & Data ([facility]) Vital Signs (Past 12 Hours) Vital Signs Temp Pulse Resp BP Pulse Ox 06/14/20 15:23 36.5 C 82 18 110/75 96 Laboratory Results Laboratory Results - last 24 hr 06/14/20 06/14/20 06/14/20 05:57 05:57 16:35 WBC 3.46 L RBC 4.44 Hgb 12.9 Hct 39.5 MCV 89.0 MCH 29.1 MCHC 32.7 RDW Std Deviation 46.8 H RDW Coeff of Del 14.5 Plt Count 194 MPV 10.6 H Immature Gran % (Auto) 0.3 Neut % (Auto) 39.5 Lymph % (Auto) 43.4 [place] % (Auto) 16.5 Eos % (Auto) 0.0 Baso % (Auto) 0.3 Neut # (Auto) 1.37 L Lymph # (Auto) 1.50 [place] # (Auto) 0.57 Eos # (Auto) 0.00 Baso # (Auto) 0.01 Immature Gran # (Auto) 0.01 Sodium 132 L Potassium 3.6 Chloride 99 Carbon Dioxide 30 Anion Gap 3.0 BUN 19 H Creatinine 0.72 Est Cr Clr Drug Dosing 60.7 Est GFR ( Amer) 89.8 Est GFR (Non-Af Amer) 77.4 BUN/Creatinine Ratio 26.0 H Glucose 80 Calcium 8.6 Total Bilirubin 1.0 AST 29 ALT 25 Alkaline Phosphatase 163 H Total Protein 6.3 L Albumin 2.9 L Globulin 3.4 Albumin/Globulin Ratio 0.9 Urine Color Dark Yellow Urine Appearance Cloudy A Urine pH 5.0 Ur Specific Melvin 1.022 Urine Protein Trace H Urine Glucose (UA) Negative Urine Ketones Trace H Urine Blood Trace H Urine Nitrite Negative Urine Bilirubin Negative Urine Urobilinogen Negative Ur Leukocyte Esterase 2+ H Urine WBC (Auto) >30 H Urine RBC (Auto) 0-4 U Hyaline Cast (Auto) 1-5 U Epithel Cells (Auto) 0-5 Urine Bacteria (Auto) 4+ H urine cx pending PG Care Time/CCT Total # of Minutes Spent Total Time Spent with Patient: Total time spent is greater than 50% in coordination of care (as documented) at patient's floor/unit and/or counseling patient: Coding Level of Care Code 87659 Subseq Hosp Care Lvl 3 Diagnoses COVID-19 U07.1 Metabolic encephalopathy G93.41 Persistent atrial fibrillation I48.19 Fracture of neck of scapula S42.153A Hypertension I10 Hypertension type: unspecified Chronic hyponatremia E87.1 Stroke I63.9 History of pacemaker Z95.0 Hypothyroidism E03.9 Multiple rib fractures S22.41XA Encounter type: initial encounter Fracture type: closed Laterality: right Chronic kidney disease, stage 3a N18.31 Dementia F03.90 Dysphagia R13.10 UTI (urinary tract infection) N39.0 DVT prophylaxis Z29.9 (1) Multiple rib fractures Encounter type: initial encounter Fracture type: closed Laterality: right Qualified Code(s): S22.41XA - Multiple fractures of ribs, right side, initial encounter for closed fracture (2) Hypertension Hypertension type: unspecified Qualified Code(s): I10 - Essential (primary) hypertension
[2020-06-14] MEDS: cefTRIAXone SODIUM 1,000 MG in DEXTROSE 5% 50 ML IV SCH (22:02)
[2020-06-15] MEDS: ACETAMINOPHEN 500 MG TAB PO SCH ×3 (05:40→21:32)
[2020-06-15] MEDS: LEVOTHYROXINE SODIUM 100 MCG TABLET PO SCH (05:40)
[2020-06-15 07:57] LABS: BUN Creatinine Ratio 27.7 (10-20); Calcium 8.8 mg/dl (8.5-10.1); Creatinine Clr Calc Pharmacy 58.3 ml/min; Est GFR (African American) 85.4; Est GFR (Non-African American) 73.7; Potassium 3.5 mmol/L (3.5-5.1)
[2020-06-15] MEDS: POLYETHYLENE (MIRALAX) 17 GM PACK PO SCH (08:41)
[2020-06-15] MEDS: METOPROLOL SUCC 25MG EXT REL TAB PO SCH (08:41)
[2020-06-15] MEDS: DOCUSATE SODIUM 100 MG CAP PO SCH (08:42)
[2020-06-15] MEDS: MAGNESIUM OXIDE 400 MG TAB PO SCH (08:42)
[2020-06-15] MEDS: LIDOCAINE 5% 1 PATCH TD SCH (08:42)
[2020-06-15] MEDS: ASPIRIN 81 MG ECTAB PO SCH (08:42)
[2020-06-15] MEDS: CALCIUM 600MG + VIT D 400 IU TAB PO SCH ×2 (08:42→21:31)
[2020-06-15] MEDS: DOCUSATE SODIUM/SENNA 50/8.6MG TAB PO SCH (08:42)
--- NOTE | 2020-06-15 12:47 | Hospitalist Progress Note ---
Date of Service June 15, 2020 Assessment & Plan (1) COVID-19: Patient with exposure to with Covid-19 approximately 1 week ago when they were last together at [place]. It is unclear when she became symptomatic - last 48 hours I suspect. Deferring on dexamethasone, remdesivir, and convalescent plasma. She has no hypoxia or obvious pneumonia at this time. Supportive care. CBC in am. (2) Metabolic encephalopathy: 2nd to COVID-19 infection and UTI. Supportive care. Mildly improved. (3) Persistent atrial fibrillation: Continue metoprolol She is not on anticoagulation due to history of intracranial hemorrhage, multiple falls, and hemoperitoneum in the past Has pacemaker in place for SSS (4) Fracture of neck of scapula: 2nd to fall on 05/30/20 Seen by orthopedics as an outpatient Conservative Rx recommended with sling x 6 weeks (5) Hypertension: cont outpatient meds (6) Chronic hyponatremia: low 130s at baseline repeat BMP am low-grade SIADH? reset osmostat? she looks clinically dry today - will give 1 additional liter of NS cautiously reeval in am (7) Stroke: history of unfortunately, even despite a.fib, not anticoagulation candidate due to history of ICH, hemoperitoneum, and multiple falls (8) History of pacemaker: Placed for SSS (9) Hypothyroidism: TSH normal at 0.9 Continue home levothyroxine (10) Multiple rib fractures: Acute rib fractures on the right [id number] ribs - likely due to recent fall lidoderm patches no complaints of pain today (11) Chronic kidney disease, stage 3a: baseline CrCL 40s/50s bmp am (12) Dementia: lives in [facility] with advanced (13) Dysphagia: spoke with speech - was on pureed in past speech evaluated patient -- minced/moist diet advised (14) UTI (urinary tract infection): 2nd GNR cont rocephin follow culture likely over to oral abx tomorrow (15) DVT prophylaxis: SCDs only given history of spontaneous bleeding in the past daughter updated by phone again today Admission and Anticipated Discharge Date Admission Date: June 14, 2020 Subjective patient lying in bed sleeping upon arrival. awoke easily to her name being called. she looked better. I asked her what she was in the hospital for and she said "that darn virus!" (COVID) she was still confused - could not tell me the year or month - but was certainly more awake today. staff report improved appetite. Review of Systems Review of Systems: Unobtainable due to cognitive status Physical Exam Constitutional: + ill appearing, + altered mental status and + frail appearing; no acute distress but looks better today ENMT: Mouth: + dry oral mucous membranes Respiratory: normal respiratory effort, lungs clear to auscultation Cardiovascular: Rate/Rhythm: regular rate and + irregularly irregular Heart Sounds: normal S1 and normal S2 Vessels: posterior tibial pulses present and dorsalis pedis pulses present; no JVD Gastrointestinal (Abdomen): Inspection/Auscultation: + abdomen distended (mild, but improved from yesterday ) and normal bowel sounds Percussion/Palpation: abdomen nontender Psychiatric: Orientation: alert (improved ), oriented to person and oriented to place; + not oriented to time Results & Data Results & Data ([facility]) Vital Signs (Past 12 Hours) Vital Signs Temp Pulse Resp BP Pulse Ox 06/15/20 07:54 36.4 C L 63 16 130/63 98 Laboratory Results Laboratory Results - last 24 hr 06/14/20 06/15/20 16:35 06:51 Sodium 132 L Potassium 3.5 Chloride 99 Carbon Dioxide 25 Anion Gap 8.0 BUN 21 H Creatinine 0.75 Est Cr Clr Drug Dosing 58.3 Est GFR ( Amer) 85.4 Est GFR (Non-Af Amer) 73.7 BUN/Creatinine Ratio 27.7 H Glucose 85 Calcium 8.8 Urine Color Dark Yellow Urine Appearance Cloudy A Urine pH 5.0 Ur Specific [place] 1.022 Urine Protein Trace H Urine Glucose (UA) Negative Urine Ketones Trace H Urine Blood Trace H Urine Nitrite Negative Urine Bilirubin Negative Urine Urobilinogen Negative Ur Leukocyte Esterase 2+ H Urine WBC (Auto) >30 H Urine RBC (Auto) 0-4 U Hyaline Cast (Auto) 1-5 U Epithel Cells (Auto) 0-5 Urine Bacteria (Auto) 4+ H urine cx - GNR PG Care Time/CCT Total # of Minutes Spent Total Time Spent with Patient: Total time spent is greater than 50% in c oordination of care (as documented) at patient's floor/unit and/or counseling patient: Coding Level of Care Code 01132 Subseq Hosp Care Lvl 2 Diagnoses COVID-19 U07.1 Metabolic encephalopathy G93.41 Persistent atrial fibrillation I48.19 Fracture of neck of scapula S42.153A Hypertension I10 Hypertension type: unspecified Chronic hyponatremia E87.1 Stroke I63.9 History of pacemaker Z95.0 Hypothyroidism E03.9 Multiple rib fractures S22.41XA Encounter type: initial encounter Fracture type: closed Laterality: right Chronic kidney disease, stage 3a N18.31 Dementia F03.90 Dysphagia R13.10 UTI (urinary tract infection) N39.0 DVT prophylaxis Z29.9 (1) Multiple rib fractures Encounter type: initial encounter Fracture type: closed Laterality: right Qualified Code(s): S22.41XA - Multiple fractures of ribs, right side, initial encounter for closed fracture (2) Hypertension Hypertension type: unspecified Qualified Code(s): I10 - Essential (primary) hypertension
[2020-06-15] MEDS ORDERED: D5NSS + 20MEQ KCL 20 MEQ/1,000 ML BAG IV SCH (13:00)
[2020-06-15] MEDS: LOSARTAN POTASSIUM 25 MG TAB PO SCH (21:31)
[2020-06-15] MEDS: ATORVASTATIN 40 MG TAB PO SCH (21:32)
[2020-06-15] MEDS: cefTRIAXone SODIUM 1,000 MG in DEXTROSE 5% 50 ML IV SCH (21:32)
[2020-06-16] MEDS: LEVOTHYROXINE SODIUM 100 MCG TABLET PO SCH (06:09)
[2020-06-16] MEDS: ACETAMINOPHEN 500 MG TAB PO SCH ×3 (06:09→21:16)
[2020-06-16 07:10] LABS: Basophils # (auto) 0.01 K/uL (0-0.2); Basophils % (auto) 0.2 %; Eosinophils # (auto) 0.02 K/uL (0-0.5); Eosinophils % (auto) 0.5 %; Hematocrit (blood only) 41.6 % (37-47); Hemoglobin 13.2 g/dL (12.0-16.0); Immature Granulocytes # (auto) 0.01 K/uL (0.00-0.02); Immature Granulocytes % (auto) 0.2 %; Lymphocytes # (auto) 1.97 K/uL (1.2-3.4); Lymphocytes % (auto) 48.8 %; Mean Corpuscular Hemoglobin 28.4 pg (25-34); Mean Corpuscular Hgb Conc 31.7 g/dL (32-36); Mean Corpuscular Volume 89.5 fL (80-100); Monocytes # (auto) 0.47 K/uL (0.11-0.59); Monocytes % (auto) 11.6 %; Neutrophils # (auto) 1.56 K/uL (1.4-6.5); Neutrophils % (auto) 38.7 %; Platelet Count 157 K/uL (130-400); RDW Coefficient of Variation 14.5 % (11.5-14.5); RDW Standard Deviation 47.5 fL (36.4-46.3); Red Blood Count 4.65 M/uL (4.2-5.4); White Blood Count 4.04 K/uL (4.8-10.8)
[2020-06-16] MEDS: LIDOCAINE 5% 1 PATCH TD SCH (07:36)
[2020-06-16] MEDS: ASPIRIN 81 MG ECTAB PO SCH (07:37)
[2020-06-16] MEDS: METOPROLOL SUCC 25MG EXT REL TAB PO SCH (07:37)
[2020-06-16] MEDS: DOCUSATE SODIUM 100 MG CAP PO SCH (07:37)
[2020-06-16] MEDS: MAGNESIUM OXIDE 400 MG TAB PO SCH (07:37)
[2020-06-16] MEDS: DOCUSATE SODIUM/SENNA 50/8.6MG TAB PO SCH (07:37)
[2020-06-16] MEDS: POLYETHYLENE (MIRALAX) 17 GM PACK PO SCH (07:38)
[2020-06-16] MEDS: CALCIUM 600MG + VIT D 400 IU TAB PO SCH ×2 (07:38→21:16)
[2020-06-16 07:55] LABS: BUN Creatinine Ratio 20.3 (10-20); Calcium 8.5 mg/dl (8.5-10.1); Creatinine Clr Calc Pharmacy 71.7 ml/min; Est GFR (African American) 97.2; Est GFR (Non-African American) 83.8; Potassium 4.2 mmol/L (3.5-5.1)
--- NOTE | 2020-06-16 20:33 | Hospitalist Progress Note ---
Date of Service June 16, 2020 Assessment & Plan (1) COVID-19: Patient with exposure to with COVID-19 approximately 1 week ago when they were last together at [place]. is hospitalized with COVID-19. It is unclear when she became symptomatic - last few days I suspect. Deferring on dexamethasone, remdesivir, and convalescent plasma - no hypoxia or other symptoms. Supportive care. (2) UTI (urinary tract infection): 2nd klebsiella stop rocephin change to keflex plan 7 days of Rx in total (3) Metabolic encephalopathy: 2nd to COVID-19 infection and UTI. Supportive care. Improved from admission (was very lethargic at time of admission). (4) Persistent atrial fibrillation: Continue metoprolol She is not on anticoagulation due to history of intracranial hemorrhage, multiple falls, and hemoperitoneum in the past Has pacemaker in place for SSS (5) Fracture of neck of scapula: 2nd to fall on 05/30/20 Seen by orthopedics as an outpatient Conservative Rx recommended with sling x 6 weeks (6) Hypertension: cont outpatient meds (7) Chronic hyponatremia: low 130s at baseline low-grade SIADH? reset osmostat? volume status looks euvolemic today (8) Stroke: history of unfortunately, even despite a.fib, not anticoagulation candidate due to history of ICH, hemoperitoneum, and multiple falls (9) History of pacemaker: Placed for SSS (10) Hypothyroidism: TSH normal at 0.9 Continue home levothyroxine (11) Multiple rib fractures: Acute rib fractures on the right [id number] ribs - likely due to recent fall lidoderm patches no complaints of pain today (12) Chronic kidney disease, stage 3a: baseline CrCL 40s/50s bmp am (13) Dementia: lives in [facility] with advanced with superimposed met encephalopathy (14) Dysphagia: spoke with speech - was on pureed in past speech evaluated patient -- minced/moist diet advised (15) DVT prophylaxis: SCDs only given history of spontaneous bleeding in the past daughter updated by phone again today Admission and Anticipated Discharge Date Admission Date: June 14, 2020 Subjective nursing staff report ongoing confusion but patient attempting to eat was awake/alert during the visit confused like previous - but remembered that her had visited her room earlier in the day Review of Systems Respiratory: + cough; no dyspnea Cardiovascular: no chest pain Gastrointestinal: no abdominal pain Physical Exam Constitutional: + ill appearing, + altered mental status and + frail appearing; no acute distress ENMT: Mouth: + dry oral mucous membranes Respiratory: normal respiratory effort, lungs clear to auscultation Cardiovascular: Rate/Rhythm: regular rate and + irregularly irregular Heart Sounds: normal S1 and normal S2 Vessels: posterior tibial pulses present and dorsalis pedis pulses present; no JVD Gastrointestinal (Abdomen): Inspection/Auscultation: normal bowel sounds; abdomen not distended Percussion/Palpation: abdomen nontender and no hepatosplenomegaly Musculoskeletal: wearing sling left arm Psychiatric: Orientation: alert and oriented to person; + not oriented to place and + not oriented to time Results & Data Results & [facility] ([facility]) Vital Signs (Past 12 Hours) Vital Signs Temp Pulse Resp BP Pulse Ox 06/16/20 15:17 36.3 C L 78 16 126/85 100 Laboratory Results Laboratory Results - last 24 hr 06/16/20 06/16/20 05:44 05:44 WBC 4.04 L RBC 4.65 Hgb 13.2 Hct 41.6 MCV 89.5 MCH 28.4 MCHC 31.7 L RDW Std Deviation 47.5 H RDW Coeff of Del 14.5 Plt Count 157 MPV 11.0 H Immature Gran % (Auto) 0.2 Neut % (Auto) 38.7 Lymph % (Auto) 48.8 [place] % (Auto) 11.6 Eos % (Auto) 0.5 Baso % (Auto) 0.2 Neut # (Auto) 1.56 Lymph # (Auto) 1.97 [place] # (Auto) 0.47 Eos # (Auto) 0.02 Baso # (Auto) 0.01 Immature Gran # (Auto) 0.01 Sodium 136 Potassium 4.2 D Chloride 105 Carbon Dioxide 27 Anion Gap 4.0 BUN 12 Creatinine 0.61 Est Cr Clr Drug Dosing 71.7 Est GFR ( Amer) 97.2 Est GFR (Non-Af Amer) 83.8 BUN/Creatinine Ratio 20.3 H Glucose 75 Calcium 8.5 urine cx - pansen klebsiella PG Care Time/CCT Total # of Minutes Spent Total Time Spent with Patient: Total time spent is greater than 50% in coordination of care (as documented) at patient's floor/unit and/or counseling patient: Coding Level of Care Code 32906 Subseq Hosp Care Lvl 2 Diagnoses COVID-19 U07.1 UTI (urinary tract infection) N39.0 Metabolic encephalopathy G93.41 Persistent atrial fibrillation I48.19 Fracture of neck of scapula S42.153A Hypertension I10 Hypertension type: unspecified Chronic hyponatremia E87.1 Stroke I63.9 History of pacemaker Z95.0 Hypothyroidism E03.9 Multiple rib fractures S22.41XA Encounter type: initial encounter Fracture type: closed Laterality: right Chronic kidney disease, stage 3a N18.31 Dementia F03.90 Dysphagia R13.10 DVT prophylaxis Z29.9 (1) Multiple rib fractures Encounter type: initial encounter Fracture type: closed Laterality: right Qualified Code(s): S22.41XA - Multiple fractures of ribs, right side, initial encounter for closed fracture (2) Hypertension Hypertension type: unspecified Qualified Code(s): I10 - Essential (primary) hypertension
[2020-06-16] MEDS: cephALEXin 500 MG CAP PO SCH (21:16)
[2020-06-16] MEDS: LOSARTAN POTASSIUM 25 MG TAB PO SCH (21:16)
[2020-06-16] MEDS: ATORVASTATIN 40 MG TAB PO SCH (21:16)
[2020-06-17] MEDS: LEVOTHYROXINE SODIUM 100 MCG TABLET PO SCH (05:26)
[2020-06-17] MEDS: ACETAMINOPHEN 500 MG TAB PO SCH ×3 (05:26→21:20)
[2020-06-17] MEDS: POLYETHYLENE (MIRALAX) 17 GM PACK PO SCH (09:13)
[2020-06-17] MEDS: DOCUSATE SODIUM 100 MG CAP PO SCH (09:14)
[2020-06-17] MEDS: MAGNESIUM OXIDE 400 MG TAB PO SCH (09:14)
[2020-06-17] MEDS: DOCUSATE SODIUM/SENNA 50/8.6MG TAB PO SCH (09:15)
[2020-06-17] MEDS: METOPROLOL SUCC 25MG EXT REL TAB PO SCH (09:16)
[2020-06-17] MEDS: cephALEXin 500 MG CAP PO SCH ×2 (09:17→20:54)
[2020-06-17] MEDS: LIDOCAINE 5% 1 PATCH TD SCH (09:19)
[2020-06-17] MEDS: CALCIUM 600MG + VIT D 400 IU TAB PO SCH ×2 (09:20→20:54)
[2020-06-17] MEDS: ASPIRIN 81 MG ECTAB PO SCH (09:24)
--- NOTE | 2020-06-17 19:51 | Hospitalist Progress Note ---
Date of Service June 17, 2020 Assessment & Plan (1) COVID-19: Patient with exposure to with COVID-19 approximately 1 week ago when they were last together at [facility]. is hospitalized with COVID-19. She remains stable in room air with no COVID symptoms really (confusion earlier this stay may have been from COVID and/or UTI). Deferring on dexamethasone, remdesivir, and convalescent plasma. Supportive care. (2) UTI (urinary tract infection): 2nd klebsiella keflex day #4 of IV/PO abx plan 7 days of Rx in total (3) Metabolic encephalopathy: 2nd to COVID-19 infection and UTI. Supportive care. Improving/nearing baseline per daughter. (4) Persistent atrial fibrillation: Continue metoprolol She is not on anticoagulation due to history of intracranial hemorrhage, multiple falls, and hemoperitoneum in the past Has pacemaker in place for SSS (5) Fracture of neck of scapula: 2nd to fall on 05/30/20 Seen by orthopedics as an outpatient Conservative Rx recommended with sling x 6 weeks (6) Hypertension: cont outpatient meds (7) Chronic hyponatremia: low 130s at baseline repeat BMP am low-grade SIADH? reset osmostat? (8) Stroke: history of unfortunately, even despite a.fib, not anticoagulation candidate due to history of ICH, hemoperitoneum, and multiple falls (9) History of pacemaker: Placed for SSS (10) Hypothyroidism: TSH normal at 0.9 Continue home levothyroxine (11) Multiple rib fractures: Acute rib fractures on the right [id number] ribs - likely due to recent fall lidoderm patches no complaints of pain today (12) Chronic kidney disease, stage 3a: baseline CrCL 40s/50s bmp am (13) Dementia: lives in [facility] with advanced met encephalopathy improving (14) Dysphagia: spoke with speech - was on pureed in past speech evaluated patient -- minced/moist diet advised she is tolerating this (15) DVT prophylaxis: SCDs only given history of spontaneous bleeding in the past daughter updated by phone yesterday and again today needs SNF placement prior to returning to [facility] Admission and Anticipated Discharge Date Admission Date: June 14, 2020 Subjective sitting in wheelchair confused - could not tell me the year, date or location but remembered her had visited her earlier today c/o cough no dyspnea staff report improving appetite no other new issues Review of Systems Review of Systems: Unobtainable due to cognitive status Physical Exam Constitutional: + altered mental status and + frail appearing; no acute distress ENMT: external ear and nose normal, oropharynx normal Respiratory: normal respiratory effort, lungs clear to auscultation Cardiovascular: Rate/Rhythm: regular rate and + irregularly irregular Heart Sounds: normal S1 and normal S2 Vessels: posterior tibial pulses present and dorsalis pedis pulses present; no JVD Gastrointestinal (Abdomen): Inspection/Auscultation: normal bowel sounds Percussion/Palpation: abdomen nontender and no hepatosplenomegaly Musculoskeletal: kyphotic; wearing sling on left shoulder/arm Psychiatric: Orientation: alert, oriented to person and oriented to place; + not oriented to time Results & Data Results & Data ([facility]) Vital Signs (Past 12 Hours) Vital Signs Temp Pulse Resp BP Pulse Ox 06/17/20 15:24 36.3 C L 74 16 121/83 98 PG Care Time/CCT Total # of Minutes Spent Total Time Spent with Patient: Total time spent is greater than 50% in coordination of care (as documented) at patient's floor/unit and/or counseling patient: Coding Level of Care Code 91413 Subseq Hosp Care Lvl 2 Diagnoses COVID-19 U07.1 UTI (urinary tract infection) N39.0 Metabolic encephalopathy G93.41 Persistent atrial fibrillation I48.19 Fracture of neck of scapula S42.153A Hypertension I10 Hypertension type: unspecified Chronic hyponatremia E87.1 Stroke I63.9 History of pacemaker Z95.0 Hypothyroidism E03.9 Multiple rib fractures S22.41XA Encounter type: initial encounter Fracture type: closed Laterality: right Chronic kidney disease, stage 3a N18.31 Dementia F03.90 Dysphagia R13.10 DVT prophylaxis Z29.9 (1) Multiple rib fractures Encounter type: initial encounter Fracture type: closed Laterality: right Qualified Code(s): S22.41XA - Multiple fractures of ribs, right side, initial encounter for closed fracture (2) Hypertension Hypertension type: unspecified Qualified Code(s): I10 - Essential (primary) hypertension
[2020-06-17] MEDS: ATORVASTATIN 40 MG TAB PO SCH (20:53)
[2020-06-17] MEDS: LOSARTAN POTASSIUM 25 MG TAB PO SCH (20:53)
[2020-06-18] MEDS: ACETAMINOPHEN 500 MG TAB PO SCH ×3 (05:52→22:04)
[2020-06-18] MEDS: LEVOTHYROXINE SODIUM 100 MCG TABLET PO SCH (05:53)
[2020-06-18 07:35] LABS: Hemoglobin 13.9 g/dL (12.0-16.0); Mean Corpuscular Hemoglobin 28.7 pg (25-34); Mean Corpuscular Hgb Conc 32.3 g/dL (32-36); Mean Corpuscular Volume 88.7 fL (80-100); Mean Platelet Volume 11.3 fL (7.4-10.4); Nucleated RBC # (auto) 0.03 K/uL (0-0); Platelet Count 178 K/uL (130-400); RDW Coefficient of Variation 14.4 % (11.5-14.5); RDW Standard Deviation 46.7 fL (36.4-46.3); Red Blood Count 4.85 M/uL (4.2-5.4)
[2020-06-18 08:22] LABS: BUN Creatinine Ratio 16.4 (10-20); Calcium 8.9 mg/dl (8.5-10.1); Creatinine Clr Calc Pharmacy 56.8 ml/min; Est GFR (African American) 82.8; Est GFR (Non-African American) 71.4; Potassium 4.1 mmol/L (3.5-5.1)
[2020-06-18] MEDS: METOPROLOL SUCC 25MG EXT REL TAB PO SCH (09:45)
[2020-06-18] MEDS: MAGNESIUM OXIDE 400 MG TAB PO SCH (09:46)
[2020-06-18] MEDS: ASPIRIN 81 MG ECTAB PO SCH (09:46)
[2020-06-18] MEDS: DOCUSATE SODIUM/SENNA 50/8.6MG TAB PO SCH (09:46)
[2020-06-18] MEDS: DOCUSATE SODIUM 100 MG CAP PO SCH (09:46)
[2020-06-18] MEDS: CALCIUM 600MG + VIT D 400 IU TAB PO SCH ×2 (09:46→22:04)
[2020-06-18] MEDS: LIDOCAINE 5% 1 PATCH TD SCH (09:47)
[2020-06-18] MEDS: POLYETHYLENE (MIRALAX) 17 GM PACK PO SCH (09:47)
[2020-06-18] MEDS: cephALEXin 500 MG CAP PO SCH ×2 (09:47→22:04)
[2020-06-18 19:13] LABS: Base Excess VBG 2.8 mEq/L; HCO3 VBG 29 mmol/L; Oxygen Saturation VBG < 60.0 %; PCO2 VBG 49 mmHg (38-50); PO2 VBG 26 mmHg; pH VBG 7.38 (7.36-7.41)
[2020-06-18] MEDS: D5W AND NSS 1,000 ML IV SCH (19:16)
--- NOTE | 2020-06-18 19:41 | Hospitalist Progress Note ---
Date of Service June 18, 2020 Assessment & Plan (1) Metabolic encephalopathy: Day #1 of hospital stay patient was EXTREMELY lethargic for about 24-30 hours. Day #2 and #3 - awake, much more alert, and talking. Today - similar features as hospital day #1. 12/2019 - hospital admission for similar presentation. EXTENSIVE w/u - MRI brain, EEG, LP - seen by neuro. exact cause then uncertain. COVID-19 causing the MS changes? subclinical seizures?? B12 def? other? check b12, ammonia, vbg, lactate. consider repeat MRI brain and EEG. restart fluids. (2) COVID-19: Patient with exposure to with COVID-19 approximately 1 week ago when they were last together at [facility]. is hospitalized with COVID-19. She remains stable in room air with no COVID symptoms really except perhaps the mental status changes/encephalopathy. Deferring on dexamethasone, remdesivir, and convalescent plasma. Supportive care. (3) UTI (urinary tract infection): 2nd klebsiella keflex day #5 of IV/PO abx plan 7 days of Rx in total (4) Persistent atrial fibrillation: Continue metoprolol She is not on anticoagulation due to history of intracranial hemorrhage, multiple falls, and hemoperitoneum in the past Has pacemaker in place for SSS Could TIAs/small subacute strokes be causing her mental status changes??? (5) Fracture of neck of scapula: 2nd to fall on 05/30/20 Seen by orthopedics as an outpatient Conservative Rx recommended with sling x 6 weeks (6) Hypertension: cont outpatient meds (7) Chronic hyponatremia: low 130s typically at baseline repeat BMP am resuming fluids today due to no PO intake (8) Stroke: history of unfortunately, even despite a.fib, not anticoagulation candidate due to history of ICH, hemoperitoneum, and multiple falls (9) History of pacemaker: Placed for SSS consider interrogation (10) Hypothyroidism: TSH normal at 0.9 Continue home levothyroxine (11) Multiple rib fractures: Acute rib fractures on the right [id number] ribs - likely due to recent fall lidoderm patches prn (12) Chronic kidney disease, stage 3a: baseline CrCL 40s/50s bmp am (13) Dementia: lives in [facility] with advanced met encephalopathy as above (14) Dysphagia: spoke with speech - was on pureed in past minced/moist (15) DVT prophylaxis: SCDs only given history of spontaneous bleeding in the past needs SNF placement prior to returning to [facility] Admission and Anticipated Discharge Date Admission Date: June 14, 2020 Subjective staff report that patient has been very drousy all day will wake briefly to name but quickly goes to sleep unable to eat/drink no obvious seizure activity when she awoke briefly for me she looked at me and said hello then went back to sleep with head slumped over Review of Systems Review of Systems: Unobtainable due to cognitive status Physical Exam Constitutional: + altered mental status and + frail appearing; no acute distress lethargic ENMT: external ear and nose normal, oropharynx normal Respiratory: normal respiratory effort, lungs clear to auscultation Cardiovascular: Rate/Rhythm: regular rate and + irregularly irregular Heart Sounds: normal S1 and normal S2 Vessels: posterior tibial pulses present and dorsalis pedis pulses present; no JVD Gastrointestinal (Abdomen): Inspection/Auscultation: normal bowel sounds Percussion/Palpation: abdomen nontender and no hepatosplenomegaly Neurologic: no obvious facial droop on limited neuro exam Psychiatric: Orientation: + not alert and + not oriented x 3 Results & Data Results & Data ([facility]) Vital Signs (Past 12 Hours) Vital Signs Temp Pulse Resp BP Pulse Ox 06/18/20 15:41 36.8 C 64 16 119/83 96 Laboratory Results Laboratory Results - last 24 hr 06/18/20 06/18/20 06/18/20 06:33 06:33 17:56 WBC 3.10 L RBC 4.85 Hgb 13.9 Hct 43.0 MCV 88.7 MCH 28.7 MCHC 32.3 RDW Std Deviation 46.7 H RDW Coeff of Del 14.4 Plt Count 178 MPV 11.3 H Absolute Nucleated RBC 0.03 H Nucleated RBC % (auto) 1.0 VBG pH VBG pCO2 VBG pO2 VBG HCO3 VBG O2 Saturation VBG Base Excess Barometric Pressure Sodium 135 L Potassium 4.1 Chloride 102 Carbon Dioxide 30 Anion Gap 3.0 BUN 13 Creatinine 0.77 Est Cr Clr Drug Dosing 56.8 Est GFR ( Amer) 82.8 Est GFR (Non-Af Amer) 71.4 BUN/Creatinine Ratio 16.4 Glucose 84 POC Glucose 84 Lactate Calcium 8.9 Ammonia Vitamin B12 06/18/20 06/18/20 06/18/20 18:53 18:53 18:53 WBC RBC Hgb Hct MCV MCH MCHC RDW Std Deviation RDW Coeff of Del Plt Count MPV Absolute Nucleated RBC Nucleated RBC % (auto) VBG pH 7.38 VBG pCO2 49 VBG pO2 26 VBG HCO3 29 VBG O2 Saturation < 60.0 VBG Base Excess 2.8 Barometric Pressure 722.8 Sodium Potassium Chloride Carbon Dioxide Anion Gap BUN Creatinine Est Cr Clr Drug Dosing Est GFR ( Amer) Est GFR (Non-Af Amer) BUN/Creatinine Ratio Glucose POC Glucose Lactate Calcium Ammonia 22.6 Vitamin B12 Pending 06/18/20 18:53 WBC RBC Hgb Hct MCV MCH MCHC RDW Std Deviation RDW Coeff of Del Plt Count MPV Absolute Nucleated RBC Nucleated RBC % (auto) VBG pH VBG pCO2 VBG pO2 VBG HCO3 VBG O2 Saturation VBG Base Excess Barometric Pressure Sodium Potassium Chloride Carbon Dioxide Anion Gap BUN Creatinine Est Cr Clr Drug Dosing Est GFR ( Amer) Est GFR (Non-Af Amer) BUN/Creatinine Ratio Glucose POC Glucose Lactate 1.9 Calcium Ammonia Vitamin B12 PG Care Time/CCT Total # of Minutes Spent Total Time Spent with Patient: Total time spent is greater than 50% in coordination of care (as documented) at patient's floor/unit and/or counseling patient: Coding Level of Care Code 41953 Subseq Hosp Care Lvl 2 Diagnoses Metabolic encephalopathy G93.41 COVID-19 U07.1 UTI (urinary tract infection) N39.0 Persistent atrial fibrillation I48.19 Fracture of neck of scapula S42.153A Hypertension I10 Hypertension type: unspecified Chronic hyponatremia E87.1 Stroke I63.9 History of pacemaker Z95.0 Hypothyroidism E03.9 Multiple rib fractures S22.41XA Encounter type: initial encounter Fracture type: closed Laterality: right Chronic kidney disease, stage 3a N18.31 Dementia F03.90 Dysphagia R13.10 DVT prophylaxis Z29.9 (1) Multiple rib fractures Encounter type: initial encounter Fracture type: closed Laterality: right Qualified Code(s): S22.41XA - Multiple fractures of ribs, right side, initial encounter for closed fracture (2) Hypertension Hypertension type: unspecified Qualified Code(s): I10 - Essential (primary) hypertension
[2020-06-18] MEDS: ATORVASTATIN 40 MG TAB PO SCH (22:04)
[2020-06-18] MEDS: LOSARTAN POTASSIUM 25 MG TAB PO SCH (22:04)
[2020-06-19] MEDS: LEVOTHYROXINE SODIUM 100 MCG TABLET PO SCH (05:17)
[2020-06-19] MEDS: ACETAMINOPHEN 500 MG TAB PO SCH ×3 (05:17→20:01)
[2020-06-19 08:51] LABS: BUN Creatinine Ratio 18.8 (10-20); Calcium 8.4 mg/dl (8.5-10.1); Creatinine Clr Calc Pharmacy 61.6 ml/min; Est GFR (African American) 91.3; Est GFR (Non-African American) 78.8; Potassium 4.4 mmol/L (3.5-5.1)
[2020-06-19] MEDS: CYANOCOBALAMIN 1000 MCG/ML VIAL IM SCH (10:45)
[2020-06-19] MEDS: DOCUSATE SODIUM/SENNA 50/8.6MG TAB PO SCH (10:46)
[2020-06-19] MEDS: cephALEXin 500 MG CAP PO SCH ×2 (10:46→20:00)
[2020-06-19] MEDS: MAGNESIUM OXIDE 400 MG TAB PO SCH (10:47)
[2020-06-19] MEDS: ASPIRIN 81 MG ECTAB PO SCH (10:47)
[2020-06-19] MEDS: METOPROLOL SUCC 25MG EXT REL TAB PO SCH (10:47)
[2020-06-19] MEDS: DOCUSATE SODIUM 100 MG CAP PO SCH (10:47)
[2020-06-19] MEDS: CALCIUM 600MG + VIT D 400 IU TAB PO SCH ×2 (10:47→20:01)
[2020-06-19] MEDS: POLYETHYLENE (MIRALAX) 17 GM PACK PO SCH (10:48)
[2020-06-19] MEDS: LIDOCAINE 5% 1 PATCH TD SCH (10:48)
[2020-06-19] MEDS ORDERED: CYANOCOBALAMIN 1000 MCG/ML VIAL IM SCH (11:30)
[2020-06-19] MEDS: D5W AND NSS 1,000 ML IV SCH (15:38)
[2020-06-19] MEDS: ATORVASTATIN 40 MG TAB PO SCH (20:00)
[2020-06-19] MEDS: LOSARTAN POTASSIUM 25 MG TAB PO SCH (20:01)
--- NOTE | 2020-06-19 23:53 | Hospitalist Progress Note ---
Date of Service June 19, 2020 Assessment & Plan (1) Metabolic encephalopathy: Day #1 of hospital stay patient was EXTREMELY lethargic for about 24-30 hours. Day #2 and #3 - awake, much more alert, and talking. I attributed HD #1 encephalopathy to COVID-19 and UTI. Hospital day #4 - similar features as hospital day #1. 12/2019 - hospital admission for similar presentation. EXTENSIVE w/u - MRI brain, EEG, LP - seen by neuro. exact cause then uncertain. It was postulated that either her lethargy/MS changes was due to seizure vs stroke. I discussed this recurrent issue with pt's daughter. She was not keen in pursuing another large w/u (MRI brain, etc). We landed on repeating an EEG to check for seizure spike. Defer on MRI brain for now. Consider consulting neurology while hospitalized for additional recommendations. Lastly, although B12 is low, I wouldn't expect it to cause episodic lethargy. (2) COVID-19: Patient with exposure to with COVID-19 approximately 1 week ago when they were last together at [facility]. is hospitalized with COVID-19. She remains stable in room air with no COVID symptoms really except perhaps the mental status changes/encephalopathy. Deferring on dexamethasone, remdesivir, and convalescent plasma. Supportive care. (3) UTI (urinary tract infection): 2nd klebsiella keflex day #6 of IV/PO abx plan 7 days of Rx in total (4) Persistent atrial fibrillation: Continue metoprolol She is not on anticoagulation due to history of intracranial hemorrhage, mult iple falls, and hemoperitoneum in the past Has pacemaker in place for SSS Could TIAs/small subacute strokes be causing her mental status changes??? (5) Fracture of neck of scapula: 2nd to fall on 05/30/20 Seen by orthopedics as an outpatient Conservative Rx recommended with sling x 6 weeks (6) Hypertension: cont outpatient meds (7) Chronic hyponatremia: low 130s typically at baseline repeat BMP today wnl (8) Stroke: history of unfortunately, even despite a.fib, not anticoagulation candidate due to history of ICH, hemoperitoneum, and multiple falls (9) History of pacemaker: Placed for SSS consider interrogation (10) Hypothyroidism: TSH normal at 0.9 Continue home levothyroxine (11) Multiple rib fractures: Acute rib fractures on the right [id number] ribs - likely due to recent fall lidoderm patches prn (12) Chronic kidney disease, stage 3a: baseline CrCL 40s/50s bmp am (13) Dementia: lives in [facility] with advanced met encephalopathy as above (14) Dysphagia: spoke with speech - was on pureed in past now minced/moist diet (15) B12 deficiency: start parenteral B12 - 1000mcg daily x 5 days then oral B12 indefinitely could make memory issues worse (16) DVT prophylaxis: SCDs only given history of spontaneous bleeding in the past needs SNF placement prior to returning to [facility] Admission and Anticipated Discharge Date Admission Date: June 14, 2020 Subjective staff report a much better day for patient today awake, alert, eating. no episodes of lethargy. overnight, while on remote pulse ox, her HR was never bradycardic. during the visit the patient was smiling, happy, and offered no complaints. Review of Systems Review of Systems: denied chest pain, dyspnea, abdominal pain Physical Exam Constitutional: + altered mental status (Baseline dementia but the lethargy is resolved ) and + frail appearing; no acute distress ENMT: external ear and nose normal, oropharynx normal Respiratory: normal respiratory effort, lungs clear to auscultation Cardiovascular: Rate/Rhythm: regular rate and + irregularly irregular Heart Sounds: normal S1 and normal S2 Vessels: posterior tibial pulses present and dorsalis pedis pulses present; no JVD Gastrointestinal (Abdomen): Inspection/Auscultation: normal bowel sounds Percussion/Palpation: abdomen nontender and no hepatosplenomegaly Musculoskeletal: left arm in sling Psychiatric: Orientation: alert, oriented to person and oriented to place; + not oriented to time Results & Data Results & Data ([facility]) Vital Signs (Past 12 Hours) Vital Signs Temp Pulse Pulse Resp BP Pulse Ox 06/19/20 23:24 36.6 C 75 16 125/74 98 06/19/20 15:35 36.6 C 70 16 131/90 98 Laboratory Results Laboratory Results - last 24 hr 06/19/20 07:35 Sodium 136 Potassium 4.4 Chloride 107 Carbon Dioxide 23 Anion Gap 6.0 BUN 13 Creatinine 0.71 Est Cr Clr Drug Dosing 61.6 Est GFR ( Amer) 91.3 Est GFR (Non-Af Amer) 78.8 BUN/Creatinine Ratio 18.8 Glucose 84 Calcium 8.4 L PG Care Time/CCT Total # of Minutes Spent Total Time Spent with Patient: Total time spent is greater than 50% in coordination of care (as documented) at patient's floor/unit and/or counseling patient: Coding Level of Care Code 42627 Subseq Hosp Care Lvl 3 Diagnoses Metabolic encephalopathy G93.41 COVID-19 U07.1 UTI (urinary tract infection) N39.0 Persistent atrial fibrillation I48.19 Fracture of neck of scapula S42.153A Hypertension I10 Hypertension type: unspecified Chronic hyponatremia E87.1 Stroke I63.9 History of pacemaker Z95.0 Hypothyroidism E03.9 Multiple rib fractures S22.41XA Encounter type: initial encounter Fracture type: closed Laterality: right Chronic kidney disease, stage 3a N18.31 Dementia F03.90 Dysphagia R13.10 B12 deficiency E53.8 DVT prophylaxis Z29.9 (1) Multiple rib fractures Encounter type: initial encounter Fracture type: closed Laterality: right Qualified Code(s): S22.41XA - Multiple fractures of ribs, right side, initial encounter for closed fracture (2) Hypertension Hypertension type: unspecified Qualified Code(s): I10 - Essential (primary) hypertension
[2020-06-20] MEDS: ACETAMINOPHEN 500 MG TAB PO SCH ×3 (05:41→20:17)
[2020-06-20] MEDS: LEVOTHYROXINE SODIUM 100 MCG TABLET PO SCH (05:41)
[2020-06-20] MEDS: DOCUSATE SODIUM 100 MG CAP PO SCH (09:47)
[2020-06-20] MEDS: DOCUSATE SODIUM/SENNA 50/8.6MG TAB PO SCH (09:47)
[2020-06-20] MEDS: ASPIRIN 81 MG ECTAB PO SCH (09:47)
[2020-06-20] MEDS: METOPROLOL SUCC 25MG EXT REL TAB PO SCH (09:47)
[2020-06-20] MEDS: CALCIUM 600MG + VIT D 400 IU TAB PO SCH ×2 (09:47→20:16)
[2020-06-20] MEDS: MAGNESIUM OXIDE 400 MG TAB PO SCH (09:48)
[2020-06-20] MEDS: CYANOCOBALAMIN 1000 MCG/ML VIAL IM SCH (09:48)
[2020-06-20] MEDS: LIDOCAINE 5% 1 PATCH TD SCH (09:48)
[2020-06-20] MEDS: cephALEXin 500 MG CAP PO SCH ×2 (09:48→20:17)
[2020-06-20] MEDS: POLYETHYLENE (MIRALAX) 17 GM PACK PO SCH (09:48)
--- NOTE | 2020-06-20 13:37 | Hospitalist Progress Note ---
Date of Service June 20, 2020 Assessment & Plan (1) Metabolic encephalopathy: Day #1 of hospital stay patient was EXTREMELY lethargic for about 24-30 hours. Day #2 and #3 - awake, much more alert, and talking. yesterday, 06/19, patient was more lethargic but today is is alert, conversive, e ating well 12/2019 - hospital admission for similar presentation. EXTENSIVE w/u - MRI brain, EEG, LP - seen by neuro. exact cause then uncertain. It was postulated that either her lethargy/MS changes was due to seizure vs stroke. Dr. Childress discussed this recurrent issue with pt's daughter. She was not keen in pursuing another large w/u (MRI brain, etc). EEG done, awaiting results Defer on MRI brain for now. B12 is low, wouldn't expect it to cause episodic lethargy. (2) COVID-19: Patient with exposure to with COVID-19 approximately 1 week ago when they were last together at [facility]. is hospitalized with COVID-19. She remains stable in room air with no COVID symptoms really except perhaps the mental status changes/encephalopathy. Deferring on dexamethasone, remdesivir, and convalescent plasma. Supportive care. (3) UTI (urinary tract infection): 2nd klebsiella keflex day #7 of IV/PO abx stop after today (4) Persistent atrial fibrillation: Continue metoprolol She is not on anticoagulation due to history of intracranial hemorrhage, multiple falls, and hemoperitoneum in the past Has pacemaker in place for SSS (5) Fracture of neck of scapula: 2nd to fall on 05/30/20 Seen by orthopedics as an outpatient Conservative Rx recommended with sling x 6 weeks (6) Hypertension: cont outpatient meds (7) Chronic hyponatremia: stable (8) Stroke: history of unfortunately, even despite a.fib, not anticoagulation candidate due to history of ICH, hemoperitoneum, and multiple falls (9) History of pacemaker: Placed for SSS consider interrogation (10) Hypothyroidism: TSH normal at 0.9 Continue home levothyroxine (11) Multiple rib fractures: Acute rib fractures on the right [id number] ribs - likely due to recent fall lidoderm patches prn (12) Chronic kidney disease, stage 3a: baseline CrCL 40s/50s bmp am (13) Dementia: lives in [facility] with advanced met encephalopathy as above (14) Dysphagia: spoke with speech - was on pureed in past now minced/moist diet (15) B12 deficiency: start parenteral B12 - 1000mcg daily x 5 days then oral B12 indefinitely could make memory issues worse (16) DVT prophylaxis: SCDs only given history of spontaneous bleeding in the past needs SNF placement prior to returning to [facility] Admission and Anticipated Discharge Date Admission Date: June 14, 2020 Subjective patient is more alert and responsive today, she ate her entire breakfast she is oriented she says she feels fine, no respiratory distress, no cough, no fever/chills she asks about how her is doing d/w CM, plan to get her and into SNF Review of Systems Review of Systems: All systems reviewed & are unremarkable except as noted in Subjective Constitutional: + fatigue and + weakness; no fever Respiratory: no cough, no dyspnea, no dyspnea on exertion and no wheezing Cardiovascular: no chest pain and no edema Gastrointestinal: no abdominal pain, no nausea, no vomiting, no constipation and no diarrhea/loose stools Physical Exam Constitutional: well developed, well nourished and comfortable; no acute distress Neck: trachea midline, no thyromegaly Respiratory: normal respiratory effort, lungs clear to auscultation Cardiovascular: RRR, no murmur, no edema Gastrointestinal (Abdomen): normal bowel sounds, soft, nontender, no hepatosplenomegaly Musculoskeletal: Head/Neck/Chest: normocephalic, head atraumatic and neck supple Extremities: extremities normal to inspection and + abnormal strength (generalized weakness) Skin: no rashes, warm and dry Neurologic: patellar DTR's 2+ bilat, sensation intact and PERRL, EOMI, accommodation nl, no face palsy, no dysarthria Psychiatric: A+Ox3, euthymic affect Results & Data Results & Data ([facility]) Vital Signs (Past 12 Hours) Vital Signs Temp Pulse Resp BP Pulse Ox 06/20/20 07:18 36.8 C 69 14 145/84 H 91 Medications Administered Current Inpatient Medications Acetaminophen (Acetaminophen 500 Mg Tab) 1,000 mg PO Q8 DONNA Stop: 07/14/20 13:59 Last Admin: 06/20/20 05:41 Dose: 1,000 mg Documented by: Aspirin (Aspirin 81 Mg Ectab) 81 mg PO [facility] Stop: 07/14/20 08:59 Last Admin: 06/20/20 09:47 Dose: 81 mg Documented by: Atorvastatin Calcium (Atorvastatin 40 Mg Tab) 40 mg PO [facility] Stop: 07/13/20 20:59 Last Admin: 06/19/20 20:00 Dose: 40 mg Documented by: Cephalexin HCl (Cephalexin 500 Mg Cap) 500 mg PO BID [facility] Stop: 06/21/20 20:59 Last Admin: 06/20/20 09:48 Dose: 500 mg Documented by: Cyanocobalamin (Cyanocobalamin 1000 Mcg/Ml Vial) 1,000 mcg IM DAILY [facility] Stop: 06/23/20 09:01 Last Admin: 06/20/20 09:48 Dose: 1,000 mcg Documented by: Docusate Sodium (Docusate Sodium 100 Mg Cap) 100 mg PO [facility] Stop: 07/14/20 08:59 Last Admin: 06/20/20 09:47 Dose: 100 mg Documented by: Levothyroxine Sodium (Levothyroxine Sodium 100 Mcg Tablet) [facility] Stop: 07/14/20 06:29 Last Admin: 06/20/20 05:41 Dose: 100 mcg Documented by: Lidocaine (Lidocaine 4% Cream 15 Gm Tube) 1 appln EXT HS PRN PRN Reason: Pain Stop: 07/13/20 15:51 Lidocaine (Lidocaine 5% 1 Patch) 3 patch TD [facility] Stop: 07/14/20 10:29 Last Admin: 06/20/20 09:48 Dose: 3 patch Documented by: Losartan Potassium (Losartan Potassium 25 Mg Tab) 25 mg PO [facility] Stop: 07/13/20 20:59 Last Admin: 06/19/20 20:01 Dose: 25 mg Documented by: Magnesium Oxide (Magnesium Oxide 400 Mg Tab) 400 mg PO [facility] Stop: 07/14/20 08:59 Last Admin: 06/20/20 09:48 Dose: 400 mg Documented by: Metoprolol Succinate (Metoprolol Succ 25mg Ext Rel Tab) 75 mg PO [facility] Stop: 07/13/20 14:07 Last Admin: 06/20/20 09:47 Dose: 75 mg Documented by: Miscellaneous (Remove Lidoderm Patch) 1 ea N/A DAILY@2100 [facility] Stop: 07/14/20 20:59 Last Admin: 06/19/20 20:01 Dose: 1 ea Documented by: Multivitamins/Minerals (Calcium 600mg + Vit D 400 Iu Tab) 1 tab PO Q12H [facility] Stop: 07/13/20 15:44 Last Admin: 06/20/20 09:47 Dose: 1 tab Documented by: Ondansetron HCl (Ondansetron Inj 2 Mg/Ml 2 Ml Vial) 4 mg IV Q6H PRN PRN Reason: Nausea Stop: 07/13/20 15:35 Oxymetazoline HCl (Oxymetazoline 0.05% 30 Ml Btl) 2 sprays VINCENT UD PRN PRN Reason: nosebleeds Stop: 07/13/20 15:35 Polyethylene Glycol (Polyethylene (Miralax) 17 Gm Pack) 17 gm PO QAM [facility] Stop: 07/14/20 08:59 Last Admin: 06/20/20 09:48 Dose: 17 gm Documented by: Senna/Docusate Sodium (Docusate Sodium/Senna 50/8.6mg Tab) 1 tab PO QAM [facility] Stop: 07/14/20 08:59 Last Admin: 06/20/20 09:47 Dose: 1 tab Documented by: Tramadol HCl (Tramadol Hcl 50 Mg Tablet) 50 mg PO BID PRN PRN Reason: pain Stop: 07/13/20 20:59 PG Care Time/CCT Total # of Minutes Spent Total Time Spent with Patient: Total time spent is greater than 50% in coordination of care (as documented) at patient's floor/unit and/or counseling patient: Coding Level of Care Code 62315 Subseq Hosp Care Lvl 2 Diagnoses Metabolic encephalopathy G93.41 COVID-19 U07.1 UTI (urinary tract infection) N39.0 Persistent atrial fibrillation I48.19 Fracture of neck of scapula S42.153A Hypertension I10 Hypertension type: unspecified Chronic hyponatremia E87.1 Stroke I63.9 History of pacemaker Z95.0 Hypothyroidism E03.9 Multiple rib fractures S22.41XA Encounter type: initial encounter Fracture type: closed Laterality: right Chronic kidney disease, stage 3a N18.31 Dementia F03.90 Dysphagia R13.10 B12 deficiency E53.8 DVT prophylaxis Z29.9 (1) Multiple rib fractures Encounter type: initial encounter Fracture type: closed Laterality: right Qualified Code(s): S22.41XA - Multiple fractures of ribs, right side, initial encounter for closed fracture (2) Hypertension Hypertension type: unspecified Qualified Code(s): I10 - Essential (primary) hypertension
[2020-06-20] MEDS: ATORVASTATIN 40 MG TAB PO SCH (20:17)
[2020-06-20] MEDS: LOSARTAN POTASSIUM 25 MG TAB PO SCH (20:17)
[2020-06-21] MEDS: ACETAMINOPHEN 500 MG TAB PO SCH ×3 (06:03→20:47)
[2020-06-21] MEDS: LEVOTHYROXINE SODIUM 100 MCG TABLET PO SCH (06:03)
[2020-06-21] MEDS: METOPROLOL SUCC 25MG EXT REL TAB PO SCH (08:55)
[2020-06-21] MEDS: ASPIRIN 81 MG ECTAB PO SCH (08:56)
[2020-06-21] MEDS: MAGNESIUM OXIDE 400 MG TAB PO SCH (08:56)
[2020-06-21] MEDS: CYANOCOBALAMIN 1000 MCG/ML VIAL IM SCH (08:56)
[2020-06-21] MEDS: DOCUSATE SODIUM 100 MG CAP PO SCH (08:56)
[2020-06-21] MEDS: LIDOCAINE 5% 1 PATCH TD SCH (08:57)
[2020-06-21] MEDS: DOCUSATE SODIUM/SENNA 50/8.6MG TAB PO SCH (08:57)
[2020-06-21] MEDS: POLYETHYLENE (MIRALAX) 17 GM PACK PO SCH (08:57)
[2020-06-21] MEDS: CALCIUM 600MG + VIT D 400 IU TAB PO SCH ×2 (08:59→20:46)
[2020-06-21] MEDS: cephALEXin 500 MG CAP PO SCH (08:59)
--- NOTE | 2020-06-21 12:12 | Hospitalist Progress Note ---
Date of Service June 21, 2020 Assessment & Plan (1) Metabolic encephalopathy: Review chart and discussed with nursing staff, this seems to wax and wane. Patient has periods of extreme lethargy intermixed with days that she has full alertness and is conversive. In December 2019 patient had extensive work-up with MRI brain, EEG, lumbar puncture. She was seen by neurology. Etiology was uncertain. There is a question of whether or not the lethargy and mental status changes are due to seizures stroke Repeat EEG was done yesterday. Report for this study is still pending. Patient with no witnessed seizures. Continue to encourage out of bed with assistance Continue PT/OT treatment Anticipate discharge to [place] [facility] on (2) COVID-19: Found to be + 06/13/2020 Currently saturating well generally on room air. Afebrile Can come off of isolation 06/24/2020 No negation for dexamethasone, remdesivir, convalescent plasma Continue isolation protocol Monitor for worsening encephalopathy that could be related to COVID-19 (3) UTI (urinary tract infection): No complaints today of any urinary symptoms Completed 7 days of antibiotics on 06/20/2020 with Keflex Urine culture with pansensitive Klebsiella pneumoniae. Only exception was intermediate susceptibility to nitrofurantoin (4) Atrial fibrillation with RVR: Not a candidate for anticoagulation secondary to falls Continue metoprolol succinate Currently rate controlled (5) Fracture of neck of scapula: No surgical intervention at this time Continue sling as toleratedFor 6 weeks. Fall occurred 05/30/2020 Outpatient follow-up with orthopedics (6) Hypertension: Currently hemodynamically stable. Continue losartan, metoprolol succinate Continue to control pain (7) Chronic hyponatremia: Sodium level 06/19/2020 was within normal limits at 136 Continue to monitor fluid ins and outs Follow labs as an outpatient (8) Stroke: Continue aspirin No other antiplatelet agents or anticoagulation secondary to falls Anticipate physical therapy when discharged to [facility] (9) Sick sinus syndrome: Continue metoprolol succinate Pacemaker is in place (10) Hypothyroidism: Continue levothyroxine TSH level is 0.962 Manage as an outpatient (11) Multiple rib fractures: Currently pain is well controlled Continue Lidoderm patches Continue recruiting maneuvers such as incentive spirometry Ambulate as tolerated Patient had no complaints of rib pain with deep inspiration on physical exam Chest x-ray with acute rib fractures at the right 10th 11th and 12th ribs No pleural effusion or concern for hemothorax at this time (12) Chronic kidney disease, stage 3a: Creatinine stable at 0.71 GFR 78.8 (13) Dementia: Microvascular change on imaging EEG is pending Patient was a resident at [facility] Anticipate discharge to [facility] on Continue supportive care and mind exercises (14) Dysphagia: No concern for aspiration on images This time patient seems to be tolerating minced\moist diet Continue to monitor with feeding (15) B12 deficiency: Continue maintenance B12 indefinitely (16) DVT prophylaxis: No chemical prophylaxis secondary to history of spontaneous bleeding Continue SCDs Ambulate as tolerated with assistance Disposition: Anticipate transfer to [facility] on morning Admission and Anticipated Discharge Date Admission Date: June 14, 2020 Subjective Attending: Dr. Clovis Ngo Patient seen and examined at bedside. Patient is currently in bed sitting up. She is pleasant and communicative with a good sense of humor. She states her shortness of breath is improved. She still is requiring small amounts of supplemental oxygen. She denies any significant cough or productive sputum. She denies any fever. She continues to be weaned on supplemental O2 as tolerated. She denies any nausea or vomiting. No diarrhea. She does have a considerable amount of weakness and requires full assist for standing and for transfer. Aside from weakness at this time she has no acute complaints. Review of Systems Review of Systems: All systems reviewed & are unremarkable except as noted in Subjective Physical Exam Physical Exam: GENERAL : No acute distress. Pleasant EYES: No icterus, gaze conjugate. NOSE: No evidence of epistaxis MOUTH: No lesions or candidiasis. Mucosa moist NECK: Supple LUNGS: Faint crackles at bilateral bases. No bronchospasm. No appreciation of rhonchi. Good inspirational effort. No induced cough with deep breathing. HEART: Regular, rate controlled. Pacemaker in place and palpable. ABDOMEN: Soft, NT, ND, BS Present EXTREMITIES: No LE edema, pedal pulses intact NEURO: A&OX3 Results & Data Results & Data ([facility]) Vital Signs (Past 12 Hours) Vital Signs Temp Pulse Resp BP Pulse Ox 06/21/20 07:18 37.1 C 82 16 172/91 H 97 Laboratory Results 06/18/20 06:33 06/19/20 07:35 Laboratory Tests 06/13/20 Unknown SARS-CoV-2, RNA, NAAT POSITIVE A* Diagnostic Findings No new diagnostic imaging since 06/13/2020 PG Care Time/CCT Total # of Minutes Spent Total Time Spent with Patient: Total time spent is greater than 50% in coordination of care (as documented) at patient's floor/unit and/or counseling patient: Coding Level of Care Code 17522 Subseq Hosp Care Lvl 2 Diagnoses Metabolic encephalopathy G93.41 COVID-19 U07.1 UTI (urinary tract infection) N39.0 Atrial fibrillation with RVR I48.91 Fracture of neck of scapula S42.153A Hypertension I10 Hypertension type: unspecified Chronic hyponatremia E87.1 Stroke I63.9 Sick sinus syndrome I49.5 Hypothyroidism E03.9 Multiple rib fractures S22.41XA Encounter type: initial encounter Fracture type: closed Laterality: right Chronic kidney disease, stage 3a N18.31 Dementia F03.90 Dysphagia R13.10 B12 deficiency E53.8 DVT prophylaxis Z29.9 Time Spent (min) 40 (1) Hypertension Hypertension type: unspecified Qualified Code(s): I10 - Essential (primary) hypertension (2) Multiple rib fractures Encounter type: initial encounter Fracture type: closed Laterality: right Qualified Code(s): S22.41XA - Multiple fractures of ribs, right side, initial encounter for closed fracture
[2020-06-21] MEDS: LOSARTAN POTASSIUM 25 MG TAB PO SCH (20:46)
[2020-06-21] MEDS: ATORVASTATIN 40 MG TAB PO SCH (20:47)
[2020-06-22] MEDS: LEVOTHYROXINE SODIUM 100 MCG TABLET PO SCH (05:33)
[2020-06-22] MEDS: ACETAMINOPHEN 500 MG TAB PO SCH ×3 (05:34→21:25)
[2020-06-22] MEDS: POLYETHYLENE (MIRALAX) 17 GM PACK PO SCH (07:55)
[2020-06-22] MEDS: DOCUSATE SODIUM 100 MG CAP PO SCH (07:55)
[2020-06-22] MEDS: CALCIUM 600MG + VIT D 400 IU TAB PO SCH ×2 (07:55→21:25)
[2020-06-22] MEDS: ASPIRIN 81 MG ECTAB PO SCH (07:56)
[2020-06-22] MEDS: METOPROLOL SUCC 25MG EXT REL TAB PO SCH (07:56)
[2020-06-22] MEDS: DOCUSATE SODIUM/SENNA 50/8.6MG TAB PO SCH (07:56)
[2020-06-22] MEDS: MAGNESIUM OXIDE 400 MG TAB PO SCH (07:56)
[2020-06-22] MEDS: CYANOCOBALAMIN 1000 MCG/ML VIAL IM SCH (07:57)
[2020-06-22] MEDS: LIDOCAINE 5% 1 PATCH TD SCH ×2 (07:57→12:57)
--- NOTE | 2020-06-22 13:23 | Electroencephalogram ---
EEG Procedure Note Date of Service June 22, 2020 Start / End Times Start Time: 11:00 End Time: 11:[address] Niurka Beck History A 84 year old woman with altered mentation. EEG performed for evaluation of epileptiform activity. Home Medication List Medication Instructions Recorded Confirmed Type aspirin [Aspir-81] 81 mg PO QAM 05/11/19 06/13/20 History levothyroxine 100 mcg PO QAM 05/11/19 06/13/20 History magnesium oxide [MagOx] 400 mg PO QAM 05/11/19 06/13/20 History sennosides-docusate sodium [Senna 1 tab PO QAM 05/11/19 06/13/20 History Plus] acetaminophen 650 mg PO Q4H PRN MDD 3000 MG 02/05/20 06/13/20 History APAP/24 HOURS atorvastatin 40 mg PO HS 02/05/20 06/13/20 History calcium carbonate-vitamin D3 1 tab PO Q12H 02/05/20 06/13/20 History [Calcium 500 + D] docusate sodium 100 mg PO QAM 02/05/20 06/13/20 History losartan 25 mg PO HS 02/05/20 06/13/20 History metoprolol succinate 75 mg PO QAM 02/05/20 06/13/20 History polyethylene glycol 3350 17 g PO QAM 02/05/20 06/13/20 History mupirocin [Bactroban] 1 applic TOPICAL HS 03/06/20 06/13/20 History oxymetazoline [Afrin 2 spray INTRANASAL UD PRN 03/06/20 06/13/20 History (oxymetazoline)] lidocaine HCl [Aspercreme 1 applic TOPICAL HS PRN 05/18/20 06/13/20 History (lidocaine HCl)] nystatin 1 applic TOPICAL BID PRN 05/18/20 06/13/20 History tramadol 50 mg PO BID 05/18/20 06/13/20 History Inpatient Medication List Acetaminophen (Acetaminophen 500 Mg Tab) 1,000 mg PO Q8 DONNA Stop: 07/14/20 13:59 Last Admin: 06/22/20 05:34 Dose: 1,000 mg Documented by: [id number] Admin: 06/21/20 20:47 Dose: 1,000 mg Documented by: [id number] Admin: 06/21/20 13:28 Dose: 1,000 mg Documented by: [id number] Admin: 06/21/20 06:03 Dose: 1,000 mg Documented by: [id number] Admin: 06/20/20 20:17 Dose: 1,000 mg Documented by: [id number] Admin: 06/20/20 14:41 Dose: 1,000 mg Documented by: [id number] Admin: 06/20/20 05:41 Dose: 1,000 mg Documented by: [id number] Admin: 06/19/20 20:01 Dose: 1,000 mg Documented by: [id number] Admin: 06/19/20 15:37 Dose: 1,000 mg Documented by: [id number] Admin: 06/19/20 05:17 Dose: 1,000 mg Documented by: [id number] Admin: 06/18/20 22:04 Dose: 1,000 mg Documented by: [id number] Admin: 06/18/20 14:01 Dose: 1,000 mg Documented by: [id number] Admin: 06/18/20 05:52 Dose: 1,000 mg Documented by: [id number] Admin: 06/17/20 21:20 Dose: 1,000 mg Documented by: [id number] Admin: 06/17/20 13:25 Dose: 1,000 mg Documented by: [id number] Admin: 06/17/20 05:26 Dose: 1,000 mg Documented by: [id number] Admin: 06/16/20 21:16 Dose: 1,000 mg Documented by: [id number] Admin: 06/16/20 14:05 Dose: 1,000 mg Documented by: [id number] Admin: 06/16/20 06:09 Dose: 1,000 mg Documented by: [id number] Admin: 06/15/20 21:32 Dose: 1,000 mg Documented by: [id number] Admin: 06/15/20 13:38 Dose: Not Given Documented by: [id number] Admin: 06/15/20 05:40 Dose: 1,000 mg Documented by: [id number] Admin: 06/14/20 21:19 Dose: 1,000 mg Documented by: [id number] Admin: 06/14/20 15:20 Dose: 1,000 mg Documented by: [id number] Aspirin (Aspirin 81 Mg Ectab) [facility] [place] Stop: 07/14/20 08:59 Last Admin: 06/22/20 07:56 Dose: 81 mg Documented by: [id number] Admin: 06/21/20 08:56 Dose: 81 mg Documented by: [id number] Admin: 06/20/20 09:47 Dose: 81 mg Documented by: [id number] Admin: 06/19/20 10:47 Dose: 81 mg Documented by: [id number] Admin: 06/18/20 09:46 Dose: 81 mg Documented by: [id number] Admin: 06/17/20 09:24 Dose: 81 mg Documented by: [id number] Admin: 06/16/20 07:37 Dose: 81 mg Documented by: [id number] Admin: 06/15/20 08:42 Dose: 81 mg Documented by: [id number] Admin: 06/14/20 08:52 Dose: 81 mg Documented by: [id number] Atorvastatin Calcium (Atorvastatin 40 Mg Tab) 40 mg PO HS DONNA Stop: 07/13/20 20:59 Last Admin: 06/21/20 20:47 Dose: 40 mg Documented by: [id number] Admin: 06/20/20 20:17 Dose: 40 mg Documented by: [id number] Admin: 06/19/20 20:00 Dose: 40 mg Documented by: [id number] Admin: 06/18/20 22:04 Dose: 40 mg Documented by: [id number] Admin: 06/17/20 20:53 Dose: 40 mg Documented by: [id number] Admin: 06/16/20 21:16 Dose: 40 mg Documented by: [id number] Admin: 06/15/20 21:32 Dose: 40 mg Documented by: [id number] Admin: 06/14/20 20:38 Dose: 40 mg Documented by: [id number] Admin: 06/13/20 21:47 Dose: 40 mg Documented by: [id number] Cyanocobalamin (Cyanocobalamin 1000 Mcg/Ml Vial) 1,000 mcg IM DAILY DONNA Stop: 06/23/20 09:01 Last Admin: 06/22/20 07:57 Dose: 1,000 mcg Documented by: [id number] Admin: 06/21/20 08:56 Dose: 1,000 mcg Documented by: [id number] Admin: 06/20/20 09:48 Dose: 1,000 mcg Documented by: [id number] Admin: 06/19/20 10:45 Dose: 1,000 mcg Documented by: [id number] Docusate Sodium (Docusate Sodium 100 Mg Cap) [facility] [place] Stop: 07/14/20 08:59 Last Admin: 06/22/20 07:55 Dose: 100 mg Documented by: [id number] Admin: 06/21/20 08:56 Dose: 100 mg Documented by: [id number] Admin: 06/20/20 09:47 Dose: 100 mg Documented by: [id number] Admin: 06/19/20 10:47 Dose: 100 mg Documented by: [id number] Admin: 06/18/20 09:46 Dose: 100 mg Documented by: [id number] Admin: 06/17/20 09:14 Dose: 100 mg Documented by: [id number] Admin: 06/16/20 07:37 Dose: 100 mg Documented by: [id number] Admin: 06/15/20 08:42 Dose: 100 mg Documented by: [id number] Admin: 06/14/20 08:52 Dose: 100 mg Documented by: [id number] Levothyroxine Sodium (Levothyroxine Sodium 100 Mcg Tablet) [facility]: 07/14/20 06:29 Last Admin: 06/22/20 05:33 Dose: 100 mcg Documented by: [id number] Admin: 06/21/20 06:03 Dose: 100 mcg Documented by: [id number] Admin: 06/20/20 05:41 Dose: 100 mcg Documented by: [id number] Admin: 06/19/20 05:17 Dose: 100 mcg Documented by: [id number] Admin: 06/18/20 05:53 Dose: 100 mcg Documented by: [id number] Admin: 06/17/20 05:26 Dose: 100 mcg Documented by: [id number] Admin: 06/16/20 06:09 Dose: 100 mcg Documented by: [id number] Admin: 06/15/20 05:40 Dose: 100 mcg Documented by: [id number] Admin: 06/14/20 06:16 Dose: 100 mcg Documented by: [id number] Lidocaine (Lidocaine 5% 1 Patch) 3 patch TD [facility] Stop: 07/14/20 10:29 Last Admin: 06/22/20 12:57 Dose: Not Given Documented by: [id number] Admin: 06/21/20 08:57 Dose: 3 patch Documented by: [id number] Admin: 06/20/20 09:48 Dose: 3 patch Documented by: [id number] Admin: 06/19/20 10:48 Dose: 3 patch Documented by: [id number] Admin: 06/18/20 09:47 Dose: 3 patch Documented by: [id number] Admin: 06/17/20 09:19 Dose: 3 patch Documented by: [id number] Admin: 06/16/20 07:36 Dose: 3 patch Documented by: [id number] Admin: 06/15/20 08:42 Dose: 3 patch Documented by: [id number] Admin: 06/14/20 11:56 Dose: 3 patch Documented by: [id number] Losartan Potassium (Losartan Potassium 25 Mg Tab) 25 mg PO HS [facility] Stop: 07/13/20 20:59 Last Admin: 06/21/20 20:46 Dose: 25 mg Documented by: [id number] Admin: 06/20/20 20:17 Dose: 25 mg Documented by: [id number] Admin: 06/19/20 20:01 Dose: 25 mg Documented by: [id number] Admin: 06/18/20 22:04 Dose: 25 mg Documented by: [id number] Admin: 06/17/20 20:53 Dose: 25 mg Documented by: [id number] Admin: 06/16/20 21:16 Dose: 25 mg Documented by: [id number] Admin: 06/15/20 21:31 Dose: 25 mg Documented by: [id number] Admin: 06/14/20 20:38 Dose: 25 mg Documented by: [id number] Admin: 06/13/20 21:47 Dose: 25 mg Documented by: [id number] Magnesium Oxide (Magnesium Oxide 400 Mg Tab) 400 mg PO QA [facility] Stop: 07/14/20 08:59 Last Admin: 06/22/20 07:56 Dose: 400 mg Documented by: [id number] Admin: 06/21/20 08:56 Dose: 400 mg Documented by: [id number] Admin: 06/20/20 09:48 Dose: 400 mg Documented by: [id number] Admin: 06/19/20 10:47 Dose: 400 mg Documented by: [id number] Admin: 06/18/20 09:46 Dose: 400 mg Documented by: [id number] Admin: 06/17/20 09:14 Dose: 400 mg Documented by: [id number] Admin: 06/16/20 07:37 Dose: 400 mg Documented by: [id number] Admin: 06/15/20 08:42 Dose: 400 mg Documented by: [id number] Admin: 06/14/20 08:53 Dose: 400 mg Documented by: [id number] Metoprolol Succinate (Metoprolol Succ 25mg Ext Rel Tab) 75 mg PO QAM [facility] Stop: 07/13/20 14:07 Last Admin: 06/22/20 07:56 Dose: 75 mg Documented by: [id number] Admin: 06/21/20 08:55 Dose: 75 mg Documented by: [id number] Admin: 06/20/20 09:47 Dose: 75 mg Documented by: [id number] Admin: 06/19/20 10:47 Dose: 75 mg Documented by: [id number] Admin: 06/18/20 09:45 Dose: 75 mg Documented by: [id number] Admin: 06/17/20 09:16 Dose: 75 mg Documented by: [id number] Admin: 06/16/20 07:37 Dose: 75 mg Documented by: [id number] Admin: 06/15/20 08:41 Dose: 75 mg Documented by: [id number] Admin: 06/14/20 08:53 Dose: 75 mg Documented by: [id number] Admin: 06/13/20 16:51 Dose: 75 mg Documented by: [id number] Miscellaneous (Remove Lidoderm Patch) 1 ea N/A DAILY@2100 [facility] Stop: 07/14/20 20:59 Last Admin: 06/21/20 20:47 Dose: 1 ea Documented by: [id number] Admin: 06/20/20 20:18 Dose: 1 ea Documented by: [id number] Admin: 06/19/20 20:01 Dose: 1 ea Documented by: [id number] Admin: 06/18/20 22:03 Dose: 1 ea Documented by: [id number] Admin: 06/17/20 20:54 Dose: 1 ea Documented by: [id number] Admin: 06/16/20 21:16 Dose: Not Given Documented by: [id number] Admin: 06/15/20 21:32 Dose: 1 ea Documented by: [id number] Admin: 06/14/20 20:41 Dose: 1 ea Documented by: [id number] Multivitamins/Minerals (Calcium 600mg + Vit D 400 Iu Tab) 1 tab PO Q12H [facility] Stop: 07/13/20 15:44 Last Admin: 06/22/20 07:55 Dose: 1 tab Documented by: [id number] Admin: 06/21/20 20:46 Dose: 1 tab Documented by: [id number] Admin: 06/21/20 08:59 Dose: 1 tab Documented by: [id number] Admin: 06/20/20 20:16 Dose: 1 tab Documented by: [id number] Admin: 06/20/20 09:47 Dose: 1 tab Documented by: [id number] Admin: 06/19/20 20:01 Dose: 1 tab Documented by: [id number] Admin: 06/19/20 10:47 Dose: 1 tab Documented by: [id number] Admin: 06/18/20 22:04 Dose: 1 tab Documented by: [id number] Admin: 06/18/20 09:46 Dose: 1 tab Documented by: [id number] Admin: 06/17/20 20:54 Dose: 1 tab Documented by: [id number] Admin: 06/17/20 09:20 Dose: 1 tab Documented by: [id number] Admin: 06/16/20 21:16 Dose: 1 tab Documented by: [id number] Admin: 06/16/20 07:38 Dose: 1 tab Documented by: [id number] Admin: 06/15/20 21:31 Dose: 1 tab Documented by: [id number] Admin: 06/15/20 08:42 Dose: 1 tab Documented by: [id number] Admin: 06/14/20 20:38 Dose: 1 tab Documented by: [id number] Admin: 06/14/20 08:52 Dose: 1 tab Documented by: [id number] Admin: 06/13/20 21:47 Dose: 1 tab Documented by: [id number] Polyethylene Glycol (Polyethylene (Miralax) 17 Gm Pack) 17 gm PO QAM [facility] Stop: 07/14/20 08:59 Last Admin: 06/22/20 07:55 Dose: 17 gm Documented by: [id number] Admin: 06/21/20 08:57 Dose: 17 gm Documented by: [id number] Admin: 06/20/20 09:48 Dose: 17 gm Documented by: [id number] Admin: 06/19/20 10:48 Dose: 17 gm Documented by: [id number] Admin: 06/18/20 09:47 Dose: 17 gm Documented by: [id number] Admin: 06/17/20 09:13 Dose: 17 gm Documented by: [id number] Admin: 06/16/20 07:38 Dose: 17 gm Documented by: [id number] Admin: 06/15/20 08:41 Dose: 17 gm Documented by: [id number] Admin: 06/14/20 08:52 Dose: 17 gm Documented by: [id number] Senna/Docusate Sodium (Docusate Sodium/Senna 50/8.6mg Tab) 1 tab PO QAM [facility] Stop: 07/14/20 08:59 Last Admin: 06/22/20 07:56 Dose: 1 tab Documented by: [id number] Admin: 06/21/20 08:57 Dose: 1 tab Documented by: [id number] Admin: 06/20/20 09:47 Dose: 1 tab Documented by: [id number] Admin: 06/19/20 10:46 Dose: 1 tab Documented by: [id number] Admin: 06/18/20 09:46 Dose: 1 tab Documented by: [id number] Admin: 06/17/20 09:15 Dose: 1 tab Documented by: [id number] Admin: 06/16/20 07:37 Dose: 1 tab Documented by: [id number] Admin: 06/15/20 08:42 Dose: 1 tab Documented by: [id number] Admin: 06/14/20 08:53 Dose: 1 tab Documented by: [id number] Discontinued Medications Bisacodyl (Bisacodyl 10 Mg Supp) 10 mg [place] NOW STA Stop: 06/14/20 14:02 Last Admin: 06/14/20 15:18 Dose: 10 mg Documented by: [id number] Cephalexin HCl (Cephalexin 500 Mg Cap) 500 mg PO BID [facility] Stop: 06/21/20 20:59 Last Admin: 06/21/20 08:59 Dose: 500 mg Documented by: [id number] Admin: 06/20/20 20:17 Dose: 500 mg Documented by: [id number] Admin: 06/20/20 09:48 Dose: 500 mg Documented by: [id number] Admin: 06/19/20 20:00 Dose: 500 mg Documented by: [id number] Admin: 06/19/20 10:46 Dose: 500 mg Documented by: [id number] Admin: 06/18/20 22:04 Dose: 500 mg Documented by: [id number] Admin: 06/18/20 09:47 Dose: 500 mg Documented by: [id number] Admin: 06/17/20 20:54 Dose: 500 mg Documented by: [id number] Admin: 06/17/20 09:17 Dose: 500 mg Documented by: [id number] Admin: 06/16/20 21:16 Dose: 500 mg Documented by: [id number] Sodium Chloride (Nss 1000ml) 1,000 mls @ 999 mls/hr IV .Q1H1M DONNA Stop: 06/13/20 11:30 Last Infusion: 06/13/20 11:53 Dose: 0 mls/hr Documented by: [id number] Admin: 06/13/20 10:53 Dose: 999 mls/hr Documented by: [id number] Ceftriaxone Sodium 1,000 mg/ (Dextrose) 50 mls @ 100 mls/hr IV HS DONNA; Protocol Stop: 06/19/20 21:29 Last Infusion: 06/15/20 22:08 Dose: 0 mls/hr Documented by: [id number] Admin: 06/15/20 21:32 Dose: 100 mls/hr Documented by: [id number] Infusion: 06/14/20 23:05 Dose: 0 mls/hr Documented by: [id number] Admin: 06/14/20 22:02 Dose: 100 mls/hr Documented by: [id number] Potassium Chloride/Dextrose/Sod Cl (D5nss + 20meq Kcl) 20 meq in 1,000 mls @ 75 mls/hr IV .[id number] DONNA Stop: 06/16/20 02:19 Last Infusion: 06/16/20 03:00 Dose: 0 mls/hr Documented by: [id number] Admin: 06/15/20 13:37 Dose: 75 mls/hr Documented by: [id number] Dextrose/Sodium Chloride (D5w And Nss) 1,000 mls @ 50 mls/hr IV .Q20H [facility] Stop: 07/18/20 17:59 Last Admin: 06/19/20 15:38 Dose: Not Given Documented by: [id number] Infusion: 06/19/20 15:36 Dose: 0 mls/hr Documented by: [id number] Admin: 06/18/20 19:16 Dose: 50 mls/hr Documented by: [id number] Tramadol HCl (Tramadol Hcl 50 Mg Tablet) 50 mg PO BID [facility] Stop: 07/13/20 20:59 Last Admin: 06/14/20 20:38 Dose: 50 mg Documented by: [id number] Admin: 06/14/20 08:56 Dose: 50 mg Documented by: [id number] Admin: 06/13/20 21:49 Dose: 50 mg Documented by: [id number] Description This is a 21 electrode EEG with a single channel dedicated to limited EKG. The electrodes were placed in accordance with the International 10-20 system. REPORT: At the onset of the EEG the patient is in an altered mental state. The background is symmetric. The posterior dominant rhythm is 7 Hz. There is intermixed 4-5 Hz theta- delta activity. Photic stimulation does not induce any abnormalities. No stage II sleep transients are recorded. IMPRESSION: This is an abnormal routine EEG in a patient with altered mentation due to mild generalized background slowing suggestive of a mild non specific encephalopathy. No focal slowing or epileptiform activity is recorded.
--- NOTE | 2020-06-22 16:58 | Hospitalist Progress Note ---
Date of Service June 22, 2020 Assessment & Plan (1) Metabolic encephalopathy: Although mental status seems to wax and wane, patient appears to be much more stable over the last 2 days. Patient napping today but was easily awakened In December 2019 patient had extensive work-up with MRI brain, EEG, lumbar puncture. She was seen by neurology. Etiology was uncertain. There is a question of whether or not the lethargy and mental status changes are due to seizures stroke Repeat EEG was completed 06/20/2020. * EEG was abnormal and showed generalized background slowing suggestive of a mild non-specific encephalopathy * No focal slowing or epileptiform activity recorded Continue to encourage out of bed with assistance Continue PT/OT treatment Continue to encourage brain activities such as puzzles and reading Anticipate discharge to [facility] on (2) COVID-19: Covid positive 06/13/2020 Currently saturating well generally on room air. Afebrile Can come off of isolation 06/24/2020 No indication for dexamethasone, remdesivir, convalescent plasma Monitor for worsening encephalopathy that could be related to COVID-19 (3) UTI (urinary tract infection): No complaints today of any urinary symptoms Completed 7 days of antibiotics on 06/20/2020 with Keflex Urine culture with pansensitive Klebsiella pneumoniae. Only exception was intermediate susceptibility to nitrofurantoin (4) Atrial fibrillation with RVR: Not a candidate for anticoagulation secondary to falls Continue metoprolol succinate Currently rate controlled (5) Fracture of neck of scapula: No surgical intervention at this time Continue sling as toleratedFor 6 weeks. Fall occurred 05/30/2020 Outpatient follow-up with orthopedics (6) Hypertension: Currently hemodynamically stable. Continue losartan, metoprolol succinate Continue to control pain Most recent blood pressure is 128/92 (7) Chronic hyponatremia: Sodium level 06/19/2020 was within normal limits at 136 Continue to monitor fluid ins and outs Follow labs as an outpatient (8) Stroke: Continue aspirin No other antiplatelet agents or anticoagulation secondary to falls Anticipate physical therapy when discharged to [facility] (9) Sick sinus syndrome: Continue metoprolol succinate Pacemaker is in place (10) Hypothyroidism: Continue levothyroxine TSH level is 0.962 Manage as an outpatient (11) Multiple rib fractures: Currently pain is well controlled Continue Lidoderm patches Continue recruiting maneuvers such as incentive spirometry and splinting with pillow as needed Ambulate as tolerated Patient had no complaints of rib pain today Chest x-ray with acute rib fractures at the right 10th 11th and 12th ribs No pleural effusion or concern for hemothorax at this time (12) Chronic kidney disease, stage 3a: Creatinine stable at 0.71 GFR 78.8 (13) Dementia: Microvascular change on imaging EEG with mild nonspecific encephalopathy with no evidence of epileptiform activity or slowing Patient was a resident at [facility] Anticipate discharge to [facility] on Continue supportive care and mind exercises (14) Dysphagia: No concern for aspiration on images The patient seems to be tolerating minced\moist diet Continue to monitor with feeding (15) B12 deficiency: Continue maintenance B12 indefinitely (16) DVT prophylaxis: No chemical prophylaxis secondary to history of spontaneous bleeding Continue SCDs Ambulate as tolerated with assistance Disposition: Anticipate transfer to [facility] on morning Admission and Anticipated Discharge Date Admission Date: June 14, 2020 Subjective Attending: Dr. Ngo Patient seen and examined at bedside. She is tired today but otherwise feeling better. She denies any shortness of breath. She has no fever or chills. She has no diarrhea. She denies any nausea or vomiting. She is questioning discharge plan. Review of Systems Review of Systems: All systems reviewed & are unremarkable except as noted in Subjective Physical Exam Physical Exam: GENERAL : No acute distress. Pleasant EYES: No icterus, gaze conjugate NOSE: No evidence of epistaxis MOUTH: No lesions or candidiasis NECK: Supple LUNGS: CTA B/L, no wheezes, rales or rhonchi. Slight cough with deep inspiration HEART: Regular, rate controlled ABDOMEN: Soft, NT, ND, BS Present EXTREMITIES: No LE edema, pedal pulses intact. Sling in place to left arm. NEURO: A&OX3 Results & Data Results & Data ([facility]) Vital Signs (Past 12 Hours) Vital Signs Temp Pulse Resp BP Pulse Ox 06/22/20 15:49 36.8 C 75 16 128/92 95 06/22/20 13:08 100 06/22/20 07:31 36.5 C 74 16 150/89 H 98 Laboratory Results No new laboratory results Diagnostic Findings Electroencephalogram: This is a 21 electrode EEG with a single channel dedicated to limited EKG. The electrodes were placed in accordance with the International 10-20 system. REPORT: At the onset of the EEG the patient is in an altered mental state. The background is symmetric. The posterior dominant rhythm is 7 Hz. There is intermixed 4-5 Hz theta- delta activity. Photic stimulation does not induce any abnormalities. No stage II sleep transients are recorded. IMPRESSION: This is an abnormal routine EEG in a patient with altered mentation due to mild generalized background slowing suggestive of a mild non specific encephalopathy. No focal slowing or epileptiform activity is recorded. PG Care Time/CCT Total # of Minutes Spent Total Time Spent with Patient: Total time spent is greater than 50% in coordination of care (as documented) at patient's floor/unit and/or counseling patient: 20 minutes Coding Level of Care Code 63865 Subseq Hosp Care Lvl 2 Diagnoses Metabolic encephalopathy G93.41 COVID-19 U07.1 UTI (urinary tract infection) N39.0 Atrial fibrillation with RVR I48.91 Fracture of neck of scapula S42.153A Hypertension I10 Hypertension type: unspecified Chronic hyponatremia E87.1 Stroke I63.9 Sick sinus syndrome I49.5 Hypothyroidism E03.9 Multiple rib fractures S22.41XA Encounter type: initial encounter Fracture type: closed Laterality: right Chronic kidney disease, stage 3a N18.31 Dementia F03.90 Dysphagia R13.10 B12 deficiency E53.8 DVT prophylaxis Z29.9 Time Spent (min) 20 (1) Hypertension Hypertension type: unspecified Qualified Code(s): I10 - Essential (primary) hypertension (2) Multiple rib fractures Encounter type: initial encounter Fracture type: closed Laterality: right Qualified Code(s): S22.41XA - Multiple fractures of ribs, right side, initial encounter for closed fracture
[2020-06-22] MEDS: ATORVASTATIN 40 MG TAB PO SCH (21:24)
[2020-06-22] MEDS: LOSARTAN POTASSIUM 25 MG TAB PO SCH (21:25)
[2020-06-23] MEDS: ACETAMINOPHEN 500 MG TAB PO SCH (06:06)
[2020-06-23] MEDS: LEVOTHYROXINE SODIUM 100 MCG TABLET PO SCH (06:06)
[2020-06-23] MEDS: LIDOCAINE 5% 1 PATCH TD SCH (07:48)
[2020-06-23] MEDS: METOPROLOL SUCC 25MG EXT REL TAB PO SCH (07:48)
[2020-06-23] MEDS: MAGNESIUM OXIDE 400 MG TAB PO SCH (07:49)
[2020-06-23] MEDS: ASPIRIN 81 MG ECTAB PO SCH (07:49)
[2020-06-23] MEDS: DOCUSATE SODIUM 100 MG CAP PO SCH (07:49)
[2020-06-23] MEDS: POLYETHYLENE (MIRALAX) 17 GM PACK PO SCH (07:50)
[2020-06-23] MEDS: CYANOCOBALAMIN 1000 MCG/ML VIAL IM SCH (07:50)
[2020-06-23] MEDS: DOCUSATE SODIUM/SENNA 50/8.6MG TAB PO SCH (07:50)
[2020-06-23] MEDS: CALCIUM 600MG + VIT D 400 IU TAB PO SCH (07:51)
--- NOTE | 2020-06-23 11:23 | Discharge Summary ---
Date of Service June 23, 2020 Admission HPI Per Admitting Provider This patient is an 84-year-old female with a history of dementia, TIA/CVA, HTN, A. fib, PPM for SSS, hyperlipidemia, hypothyroidism, constipation, osteoporosis with vertebral compression fractures, who resides at the dementia unit of [facility], who presents with altered mental status and has complaints of left sided posterior chest wall pain and increased weakness. History is limited by her dementia. She is able to tell me that she has some pain in her left posterior upper back. Says she has a little SOB, but no chest pain. No nausea and is feeling hungry, denies diarrhea. She tested positive for COVID in the ER and her is currently in the hospital with COVID as well Review of the chart shows that she had a fall on 05/30 was seen in the ER and diagnosed with a left scapular fracture, but CT of the cervical spine, head, and lumbar spine only otherwise showed old vertebral compression fractures. In ER here today, she was found to have fractures of the right 10th, 11th, and 12th ribs and some mild volume overload in the lungs with associated basilar opacities and small pleural effusions, but no pneumothorax. She was mildly hypertensive and tachycardic with atrial fibrillation with rates in the low 100s. She had some ST and T wave abnormalities in the lateral leads which was unchanged from previous. Mildly hyponatremic. She was given 1 L of normal saline. She was not hypoxic. The ER physician discussed her care with the patient's daughter who wanted her to be admitted overnight for observation. Admission Exam Per Admitting Provider Constitutional: WD/WN, vitals as above Eyes: PERRL, conjunctivae normal, anicteric sclerae ENMT: external ear and nose normal, oropharynx normal Neck: trachea midline, no thyromegaly Respiratory: normal respiratory effort, lungs clear to auscultation Cardiovascular: Rate/Rhythm: + tachycardic and + irregularly irregular Heart Sounds: no murmur Extremities: no calf tenderness and no edema Chest (Breasts): Chest: normal inspection of chest Gastrointestinal (Abdomen): normal bowel sounds, soft, nontender, no hepatosplenomegaly Musculoskeletal: Extremities: extremities normal to inspection; no cyanosis and no clubbing With tenderness palpation over left scapula Skin: no rashes, warm and dry Neurologic: moves all extremities and awake; no focal motor deficits Psychiatric: Orientation: alert, oriented to place (Knows it is a "hospital" but does not know the name of the hospital), oriented to time (Knows the month but not the year and the date) and cooperative Eye Contact: good eye contact Motor Behavior: n tremor Speech: normal rate/rhythm/volume of speech Affect: euthymic affect Lymphatic: no lymphedema Principal Diagnosis COVID-19 infection Metabolic encephalopathy secondary to COVID-19 infection and chronic changes Discharge Exam GENERAL : No acute distress EYES: No icterus, gaze conjugate. Pupils equal round and reactive to light NOSE: No evidence of epistaxis MOUTH: No lesions or candidiasis. Tongue midline. Mucosa moist NECK: Supple LUNGS: CTA B/L, no wheezes, rales or rhonchi HEART: Regular, rate controlled ABDOMEN: Soft, NT, ND, BS Present EXTREMITIES: No LE edema, pedal pulses intact NEURO: A&OX3 Discharge Data Allergies Allergy/AdvReac Type Severity Reaction Status Date / Time latex Allergy Unknown skin Verified 05/18/20 11:51 irritation mirtazapine Allergy Unknown Rash Verified 05/18/20 11:51 lisinopril AdvReac Unknown Cough Verified 05/18/20 11:51 Consultations 06/13/20 13:02 ED Decision to Admit Stat 06/13/20 15:36 Consult Case Management - Discharge Planning Routine Procedures Performed 06/18/20 06:33 06/19/20 07:35 Ordered Studies 06/13/20 10:24 CT head/brain wo con Stat CT OF THE HEAD WITHOUT CONTRAST CLINICAL HISTORY: Increasing confusion. COMPARISON STUDY: Head CT May 22, 2020. MRI of the brain June 11, 2019. CT DOSE: 765.09 mGycm TECHNIQUE: Helical axial images of the head were obtained without IV contrast. Automated exposure control was utilized for the study. A dose lowering technique was utilized adhering to the principles of ALARA. FINDINGS: No acute intracranial hemorrhage, midline shift or mass effect is present. Basal cisterns are patent. There are no extraaxial collections. Ventricular dilatation is unchanged and likely due to central atrophy. 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 This is unchanged. White matter hypodensities are unchanged. These suggest small vessel disease. There are no findings to suggest acute dural sinus thrombosis or acute territorial infarct. There is no calvarial fracture. Old left nasal bone fracture is incidentally noted. IMPRESSION: No acute intracranial findings. No change in appearance of the brain. Electronically signed by: Santiago Leon M.D. 06/13/2020 11:05 AM XR ribs RT min 2V w [id number] CLINICAL HISTORY: Right rib pain COMPARISON STUDY: 12/09/2019 FINDINGS: Erect chest reveals elevation of interstitium consistent with mild pulmonary vascular congestion. The heart is enlarged. Left subclavian bipolar central venous pacemaker. Small pleural effusions are suspected with associated basilar opacities. The bones are osteopenic. There are fractures of the right 10th and 11th and 12th ribs. IMPRESSION: 1. Fractures of the right 10th and 11th and 12th ribs. 2. No evidence of pneumothorax 3. Congestive failure/fluid overload. Electronically signed by: Keven Pineda M.D. 06/13/2020 12:09 PM XR thoracic spine 3V routine CLINICAL HISTORY: Back pain. COMPARISON STUDY: Chest radiograph November 21, 2017. FINDINGS: Several acute right-sided rib fractures are better depicted on the right rib series. Dual-lead left subclavian pacemaker is noted. Suspected small left pleural effusion is present. An old severe L1 compression fracture is noted. A moderate compression fracture of T11 is likely old. Exaggerated kyphosis of the thoracic spine is noted. There is mild multilevel disc space narrowing and moderate osteophytosis of the thoracic spine. IMPRESSION: 1. No acute thoracic spine fracture or subluxation. 2. Old T11 and L1 compression fractures. 3. Several acute mildly displaced right-sided rib fractures which are better depicted on the right rib series. Please see that report for further description. Electronically signed by: Santiago Leon M.D. 06/13/2020 12:13 PM XR shoulder LT min 2V routine CLINICAL HISTORY: fall eval for injury COMPARISON: Chest radiograph December 09, 2019. FINDINGS: Dual lead left subclavian pacemaker is partially imaged. Alignment of the left shoulder is anatomic. No proximal left humeral fracture is noted. Alignment of the left glenohumeral and acromioclavicular joints is anatomic. Note is made of cortical irregularity of the left scapula, inferior and medial to the glenoid. IMPRESSION: 1. Lucency with cortical irregularity of the left scapula. This may reflect an acute fracture. 2. No proximal left humeral fracture. Anatomic alignment of the left glenohumeral joint. Electronically signed by: Santiago Leon M.D. 05/30/2020 7:31 PM Hospital Course (1) Metabolic encephalopathy: Although mental status seems to wax and wane, patient appears to be much more stable over the last 2 days. Patient napping today but was easily awakened In December 2019 patient had extensive work-up with MRI brain, EEG, lumbar puncture. She was seen by neurology. Etiology was uncertain. There is a question of whether or not the lethargy and mental status changes are due to seizures stroke Repeat EEG was completed 06/20/2020. * EEG was abnormal and showed generalized background slowing suggestive of a mild non-specific encephalopathy * No focal slowing or epileptiform activity recorded Continue to encourage out of bed with assistance Continue PT/OT treatment Continue to encourage brain activities such as puzzles, word find, and reading Discharge to [facility] today (2) COVID-19: Covid positive 06/13/2020 Currently saturating well generally on room air. Afebrile Can come off of isolation 06/24/2020 No indication for dexamethasone, remdesivir, convalescent plasma Monitor for worsening encephalopathy that could be related to COVID-19 (3) UTI (urinary tract infection): No complaints today of any urinary symptoms Completed 7 days of antibiotics on 06/20/2020 with Keflex Urine culture with pansensitive Klebsiella pneumoniae. Only exception was intermediate susceptibility to nitrofurantoin (4) Atrial fibrillation with RVR: Not a candidate for anticoagulation secondary to falls Continue metoprolol succinate Currently rate controlled (5) Fracture of neck of scapula: No surgical intervention at this time Continue sling as toleratedFor 6 weeks. Fall occurred 05/30/2020 Outpatient follow-up with orthopedics (6) Hypertension: Currently hemodynamically stable. Continue losartan, metoprolol succinate Continue to control pain (7) Chronic hyponatremia: Sodium level 06/19/2020 was within normal limits at 136 Continue to monitor fluid ins and outs Follow labs as an outpatient (8) Stroke: Continue aspirin No other antiplatelet agents or anticoagulation secondary to falls Anticipate physical therapy when discharged to [facility] (9) Sick sinus syndrome: Continue metoprolol succinate Pacemaker is in place (10) Hypothyroidism: Continue levothyroxine TSH level is 0.962 Manage as an outpatient (11) Multiple rib fractures: Currently pain is well controlled Lidoderm patches were used in the hospital setting. Prescription not provided. If patient feels that they are needed, this can be managed through the outpatient setting with primary care provider Continue recruiting maneuvers such as incentive spirometry and splinting with pillow as needed Ambulate as tolerated Patient had no complaints of rib pain again today Chest x-ray with acute rib fractures at the right 10th 11th and 12th ribs No pleural effusion or concern for hemothorax at this time (12) Chronic kidney disease, stage 3a: Creatinine stable at 0.71 GFR 78.8 (13) Dementia: Microvascular change on imaging EEG with mild nonspecific encephalopathy with no evidence of epileptiform activity or slowing Patient was a resident at [facility] Anticipate discharge to [facility] on Continue supportive care and mind exercises (14) Dysphagia: No concern for aspiration on images The patient seems to be tolerating minced\\moist diet Continue to monitor with feeding (15) B12 deficiency: Continue maintenance B12 indefinitely Total Time Total Time Spent Total Time Spent (In Minutes): 40 minutes Total Time Includes: Examination of the Patient, Discharge Planning, Medication Reconciliation and Communication With Other Providers Discharge Plan Discharge Items Patient Disposition: Transfer [facility] Reason For Visit: COVID 19 INFECTION, MET ENCEPHALOPATHY 2ND COVID19 Discharge Diagnosis: COVID-19 pneumonia Metabolic encephalopathy (altered mental status) secondary to COVID-19 Activity: Resume your previous activity Lifting: Gradually increase as tolerated Bathing: No limitations Sexual Activity: When tolerated Exercise/Sports: Gradually increase as tolerated Weightbearing: Full weightbearing Non-emergency contact: Primary Care Provider Call non-emergency contact if: you have any medication questions and you have a fever Follow-up/Referrals: Cristela kimballDuluth [Primary Care Provider] - Diet: Heart Healthy Diet Texture: Dental soft (bite-sized) Addtl Attending Provider Instructions: You were admitted and found to have COVID-19. He also had altered mental status which is also known his metabolic encephalopathy. You are found to be positive for COVID-19 on 06/13/2020. Your respiratory symptoms were not severe and you did not require steroids, antiviral medication (remdesivir), or convalescent plasma. It is felt that your mental status changes may have been affected by the COVID-19 infection. You had an electroencephalogram (EEG) on 06/20/2020 which showed some background slowing which is typical for mild nonspecific encephalopathy in your age group but did not show any focal slowing or evidence of epilepsy. You are encouraged to continue brain activities such as puzzles, word find activities, board games, and reading. You also had a urinary tract infection which could have caused increased confusion as well. You completed 7 days of antibiotics on 06/20/2020 (Keflex). Your urine culture was positive for pansensitive Klebsiella pneumoniae. Your atrial fibrillation was generally controlled. You were continued on metoprolol succinate and will continue on this with discharge. As a result of your fall on 05/30/2020, you have a fracture at the neck of the left scapula. Continue to wear your sling for 6 weeks. You should follow-up with orthopedics as an outpatient. Also as a result of your fall, you were found to have multiple rib fractures at the right 10th, 11th, and 12th ribs. If you have pain in this area with cough or deep breathing, it may help to hold a pillow or blanket along the right side to splint these areas. Continue to use your incentive spirometer. It is very important that you continue to take deep breaths. Pending Studies at Discharge: No Stand-Alone Forms: My [facility] Skilled Items Patient informed of condition?: Yes DNR: Yes Discharge Level of Care: Skilled Communicable Disease: Yes Discharge Prognosis: Improving Lines: None Urinary Catheter: No Medications and DC Order Prescriptions: Continued sennosides-docusate sodium [Senna Plus] 8.6-50 mg tablet 1 tab PO QAM RF: 0 aspirin [Aspir-81] 81 mg Tablet,Delayed Release (Dr/Ec) 81 mg PO QAM RF: 0 levothyroxine 100 mcg tablet 100 mcg PO QAM RF: 0 magnesium oxide [MagOx] 400 mg (241.3 mg magnesium) tablet 400 mg PO QAM RF: 0 atorvastatin 40 mg tablet 40 mg PO HS RF: 0 acetaminophen 325 mg Tablet 650 mg PO Q4H MDD 3000 MG APAP/24 HOURS PRN (Reason: Fever Or Pain) RF: 0 losartan 25 mg tablet 25 mg PO HS RF: 0 docusate sodium 100 mg Capsule 100 mg PO QAM RF: 0 metoprolol succinate 25 mg tablet extended release 24 hr 75 mg PO QAM RF: 0 polyethylene glycol 3350 17 gram/dose Powder 17 g PO QAM RF: 0 calcium carbonate-vitamin D3 [Calcium 500 + D] 500 mg(1,250mg) -400 unit Tablet 1 tab PO Q12H RF: 0 mupirocin 2 % Ointment 1 applic TOPICAL HS RF: 0 tramadol 50 mg Tablet 50 mg PO BID RF: 0 nystatin 100,000 unit/gram Cream 1 applic TOPICAL BID PRN (Reason: Skin Irritation) RF: 0 lidocaine HCl [Aspercreme (lidocaine HCl)] 4 % Cream 1 applic TOPICAL HS PRN (Reason: Pain) RF: 0 Discontinued oxymetazoline [Afrin (oxymetazoline)] 0.05 % Scheller,Non-Aerosol 2 spray INTRANASAL UD PRN (Reason: nosebleeds) RF: 0 Discharge Orders: Discharge Order (Routine); Ordered 06/23/20 Ordered By: Edgar Vital/Other Patient Handouts: Rib Fracture (Broken Rib) Admission Data Admit Date/Time: 06/13/20 14:08 Attending Provider: Clovis Ngo Admit Provider: Janet Varela Primary Care Provider: Cristela kimballDuluth Other Providers: Janet Varela ; Lucia Santana Spangle ; Anirudh Szymanski Other Interventions: Discharge Summary Assessment (RN) Last Done: 06/23/20 10:30 Supervising Physician Co-Signing Physician Notes Patient seen and examined on the day of discharge. I agree with the discharge summary by Edgar RENEE. I have reviewed the chart including labs, imaging and plans for discharge. patient doing well the past few days, alert and oriented, eating and drinking well encephalopathy resolved - COVID 19 infection, causing some acute mental status changes, encephalopathy resolved, eating and drinking well, breathing room air comfortably still weak, needs to go to SNF for rehab, may need placement will go to [facility] with her Shravan Coding Level of Care Code D/C Day Management >30 mins Diagnoses Metabolic encephalopathy G93.41 COVID-19 U07.1 UTI (urinary tract infection) N39.0 Atrial fibrillation with RVR I48.91 Fracture of neck of scapula S42.153A Hypertension I10 Hypertension type: unspecified Chronic hyponatremia E87.1 Stroke I63.9 Sick sinus syndrome I49.5 Hypothyroidism E03.9 Multiple rib fractures S22.41XA Encounter type: initial encounter Fracture type: closed Laterality: right Chronic kidney disease, stage 3a N18.31 Dementia F03.90 Dysphagia R13.10 B12 deficiency E53.8 Time Spent (min) 40
== END 2020-06-23 14:02 ==
LOC: ED 09:58 → 3E 09:58 → SUATTDRO 14:08 → 3E 14:33 → SUATTDRO 06-14 18:57
DX: Z79.82 Long term (current) use of aspirin; S42.101A Fracture of unspecified part of scapula, right shoulder, initial encounter for closed fracture; R53.83 Other fatigue; M19.90 Unspecified osteoarthritis, unspecified site; U07.1 COVID-19; I12.9 Hypertensive chronic kidney disease with stage 1 through stage 4 chronic kidney disease, or unspecified chronic kidney disease; R41.82 Altered mental status, unspecified; G93.41 Metabolic encephalopathy; I49.5 Sick sinus syndrome; S22.41XA Multiple fractures of ribs, right side, initial encounter for closed fracture; E78.5 Hyperlipidemia, unspecified; Z79.899 Other long term (current) drug therapy; N39.0 Urinary tract infection, site not specified; E03.9 Hypothyroidism, unspecified; E53.8 Deficiency of other specified B group vitamins; N18.30 Chronic kidney disease, stage 3 unspecified; Z86.73 Personal history of transient ischemic attack (TIA), and cerebral infarction without residual deficits; R13.10 Dysphagia, unspecified; E87.1 Hypo-osmolality and hyponatremia; Z91.040 Latex allergy status; Z88.8 Allergy status to other drugs, medicaments and biological substances; Z95.0 Presence of cardiac pacemaker; I48.19 Other persistent atrial fibrillation

== ENCOUNTER 2021-01-03 17:22 | Inpatient (IN) ==
[2021-01-03] MEDS ORDERED: LABETALOL HCL IV 5 MG/ML 20ML IV STA ×2 (17:44→18:42)
[2021-01-03] MEDS ORDERED: ONDANSETRON INJ 2 MG/ML 2 ML VIAL IV STA (17:44)
--- NOTE | 2021-01-03 17:52 | Emergency Department Note ---
Impression & Plan Weakness, Hypertension, SOB (shortness of breath), Pleural effusion ED Provider Note NAME: NANCY SCHMIDT AGE: 85 SEX: F : 1935 ARRIVES VIA: Ambulance INFORMANT: [Patient][ems] ED PROVIDER(S): [Edgar Ramirez MD] CHIEF COMPLAINT: Hypertension, dizzy HISTORY OF PRESENT ILLNESS: The patient is an 85-year-old female who has not felt well for maybe 3 days. She has been dizzy and slightly short of breath with some nausea occasionally. Her blood pressure has been high. The patient states that she has diarrhea now but, she just received some laxatives to help with bowel movements. She denies any urinary complaints. She has not had chest pain. She has weakness which is generalized, she does not have one-sided weakness. Patient is vaccinated against COVID-19. She states she is taking all her meds as prescribed. She is not sure why her blood pressure is so high. REVIEW OF SYSTEMS: See HPI for pertinent positives and negatives. A total of ten systems were reviewed and were otherwise negative. PMHx/PSHx: See Below SOCIAL HISTORY: See Below. PHYSICAL EXAM: GENERAL: Patient is in no acute distress. HEENT: No acute trauma, normocephalic atraumatic, mucous membranes moist, no nasal congestion, no scleral icterus. NECK: No stridor, no adenopathy, no meningismus, trachea is midline. LUNGS: Clear to auscultation bilaterally, no wheeze, no rhonchi, breath sounds equal. HEART: No murmurs, irregular rhythm, mildly tachycardic. ABDOMEN: Soft, nontender, bowel sounds positive, no hernias, no peritonitis. EXTREMITIES: No cyanosis or edema, full range of motion of all the joints without pain or difficulty, no signs for acute trauma. NEUROLOGIC: Oriented x 3, no acute motor or sensory deficits, no focal weakness. SKIN: No rash, no jaundice, no diaphoresis. DIFFERENTIAL DIAGNOSIS: Infection, dehydration, metabolic abnormality, hypo/hyperglycemia, electrolyte disturbance, anemia, uncontrolled hypertension, COVID-19, UTI, hypoxia, cardiac sources, intracerebral event, toxicologic issues, stroke, TIA, as well as other pathologies. EMERGENCY DEPARTMENT COURSE/PROCEDURES: ECG: Indication was weakness and hypertension. There is atrial fibrillation present with some occasional paced beats. The rate is 94. There is some nonspecific ST change. No ST elevation. The QTc is 470. Compared to an ECG from 24 July 2020, PVCs are no longer present. Continuous Cardiac Monitoring: An order was placed for continuous cardiac monitoring. The monitor shows a rate of 101 with atrial fibrillation. MEDICAL DECISION MAKING: There is no leukocytosis or concerning anemia. There is a normal platelet count. Sodium somewhat low at 133, no kidney failure. No worrisome liver enzyme elevation. ECG shows atrial fibrillation, no acute ischemia. Cardiac enzyme testing x1 is not consistent with acute cardiac injury. Chest x-ray shows a large left effusion/consolidation. BNP is elevated consistent with fluid overload. Patient appeared to be in a euthyroid state. Urinalysis showed contamination, no obvious infection. Covid testing returned negative. Brain CT shows no acute bleed or mass-effect. Patient presents with weakness, some dizziness and shortness of breath. She was quite hypertensive. The patient received IV labetalol, a second dose of labetalol was given. She was then given IV hydralazine and IV Lasix. She received IV Zofran. The patient has a high blood pressure despite several doses of IV medication. She has a large left effusion/consolidation. Given her findings, given her complaints, I do think a hospital stay is warranted. I am not comfortable with discharge with this high blood pressure. I spoke to the patient, I talked to case management, the on-call hospitalist was consulted. Past Med/Surg History Medical History Anxiety Atrial fibrillation No AC secondary to history of bleeding issues (traumatic brain hemorrhage/intra- abdominal hemorrhage) Chronic hyponatremia Constipation COVID-19 Fracture of neck of scapula HTN (hypertension) Hyperlipidemia Hypomagnesemia Hypothyroidism Osteoarthritis Sick sinus syndrome S/p pacemaker TIA (transient ischemic attack) Possible in December 08, 2019 TIA 05/2019 per records. Last seen by neuro= 01/08/20- follow up PRN. Continue ASA. Surgical History H/O colonoscopy History of pacemaker Family History Other Cancer Social History Smoking Status: Never smoker Hx Alcohol Use: Yes Preferred Language: Serbian Communication Ability: Effective Dental Equipment Technician Required: No Beliefs That Will Affect Care: None marital status: Current Living Situation: Spouse Current Living Situation Comment: [facility] current occupational status: retired Feels Safe at Home: Yes Assistive Devices: Walker Allergies Allergies Allergy/AdvReac Type Severity Reaction Status Date / Time latex Allergy Unknown skin Verified 01/03/21 17:52 irritation mirtazapine Allergy Unknown Rash Verified 01/03/21 17:52 lisinopril AdvReac Unknown Cough Verified 01/03/21 17:52 Home Meds Home Medications Medication Instructions Recorded Confirmed levothyroxine 100 mcg tablet 100 mcg PO QAM 05/11/19 01/03/21 magnesium oxide 400 mg (241.3 mg 400 mg PO QAM 05/11/19 01/03/21 magnesium) tablet (MagOx) sennosides 8.6 mg-docusate sodium 1 tab PO BID 05/11/19 01/03/21 50 mg tablet (Senna Plus) atorvastatin 40 mg tablet 40 mg PO HS 02/05/20 01/03/21 calcium carbonate 500 mg (1,250 1 tab PO Q12H 02/05/20 01/03/21 mg)-vitamin D3 400 unit tablet (Calcium 500 + D) losartan 25 mg tablet 25 mg PO HS 02/05/20 01/03/21 metoprolol succinate 25 mg 75 mg PO QAM 02/05/20 01/03/21 tablet,extended release 24 hr polyethylene glycol 3350 17 17 g PO QAM 02/05/20 01/03/21 gram/dose oral powder mupirocin 2 % topical ointment 1 applic TOPICAL HS 03/06/20 01/03/21 lidocaine HCl 4 % topical cream 1 applic TOPICAL HS PRN 05/18/20 01/03/21 (Aspercreme (lidocaine HCl)) nystatin 100,000 unit/gram topical 1 applic TOPICAL BID PRN 05/18/20 01/03/21 cream tramadol 50 mg tablet 50 mg PO BID PRN 05/18/20 01/03/21 aspirin 81 mg tablet,delayed 81 mg PO QAM 07/21/20 01/03/21 release cyanocobalamin (vitamin B-12) 2,000 mcg PO QAM 07/21/20 01/03/21 1,000 mcg tablet (Vitamin B-12) acetaminophen 325 mg tablet 650 mg PO Q4 PRN MDD 3g 01/03/21 01/03/21 acetaminophen 325 mg tablet 650 mg PO Q4 PRN MDD 3g 01/03/21 01/03/21 ferrous sulfate 325 mg (65 mg 325 mg PO Q OTHER DAY 01/03/21 01/03/21 iron) tablet oxymetazoline 0.05 % nasal spray 2 spray INTRANASAL UD PRN 01/03/21 01/03/21 (Afrin (oxymetazoline)) Results & Data (ED) Vital Signs Vital Signs - 24 hr 01/03/21 17:30 01/03/21 17:41 01/03/21 18:01 Temperature 36.6 C Temperature Source Oral Pulse Rate 88 96 H 104 H Pulse Rate [Apical] Pulse Rhythm Irregular Respiratory Rate 20 18 17 Respiratory Effort / Characteristics Non-Labored Spontaneous Respiratory Depth Normal Respiratory Pattern Regular Blood Pressure 186/144 H 194/139 H 146/91 H Blood Pressure [Right Arm] Blood Pressure Mean 158 157 109 Blood Pressure Mean [Right Arm] Blood Pressure Position [Right Arm] Pulse Oximetry 95 97 95 Oxygen Delivery Method Room Air Sepsis Recent Fever Within 48 Hours No Sepsis New/Unexplained Change in Mental Status No Sepsis Action Taken by Nursing No Action Required 01/03/21 19:23 01/03/21 20:45 Temperature Temperature Source Pulse Rate Pulse Rate [Apical] 94 H 101 H Pulse Rhythm Respiratory Rate 18 18 Respiratory Effort / Characteristics Non-Labored Spontaneous Respiratory Depth Normal Respiratory Pattern Blood Pressure Blood Pressure [Right Arm] 128/93 137/93 Blood Pressure Mean Blood Pressure Mean [Right Arm] 104 107 Blood Pressure Position [Right Arm] Lying Pulse Oximetry 94 90 Oxygen Delivery Method Room Air Room Air Sepsis Recent Fever Within 48 Hours Sepsis New/Unexplained Change in Mental Status Sepsis Action Taken by Care Home Medications Current Medication List: was personally reviewed by me Laboratory Data Attestation: I reviewed the patient's lab results. Result diagrams: 01/03/21 17:38 01/03/21 17:38 Lab Results 01/03/21 01/03/21 01/03/21 Range/Units 17:38 17:38 18:00 WBC 7.20 (4.8-10.8) K/uL RBC 5.29 (4.2-5.4) M/uL Hgb 15.5 (12.0-16.0) g/dL Hct 46.7 (37-47) % MCV 88.3 (80-100) fL MCH 29.3 (25-34) pg MCHC 33.2 (32-36) g/dL RDW Std Deviation 66.9 H (36.4-46.3) fL RDW Coeff of Del 20.8 H (11.5-14.5) % Plt Count 205 (130-400) K/uL MPV 10.8 H (7.4-10.4) fL Immature Gran % (Auto) 0.1 % Neut % (Auto) 62.3 % Lymph % (Auto) 26.8 % [place] % (Auto) 9.4 % Eos % (Auto) 1.1 % Baso % (Auto) 0.3 % Neut # (Auto) 4.48 (1.4-6.5) K/uL Lymph # (Auto) 1.93 (1.2-3.4) K/uL [place] # (Auto) 0.68 H (0.11-0.59) K/uL Eos # (Auto) 0.08 (0-0.5) K/uL Baso # (Auto) 0.02 (0-0.2) K/uL Immature Gran # (Auto) 0.01 (0.00-0.02) K/uL Sodium 133 L (136-145) mmol/L Potassium 4.1 (3.5-5.1) mmol/L Chloride 101 (98-107) mmol/L Carbon Dioxide 27 (21-32) mmol/L Anion Gap 5.0 (3-11) BUN 12 (7-18) mg/dl Creatinine 0.77 (0.6-1.2) mg/dl Est Cr Clr Drug Dosing Not Reportable Est GFR ( Amer) 82.2 ml/min Est GFR (Non-Af Amer) 70.9 ml/min BUN/Creatinine Ratio 15.7 (10-20) Glucose 99 (70-99) mg/dl Lactate (0.4-2.0) mmol/L Calcium 9.4 (8.5-10.1) mg/dl Magnesium 2.1 (1.8-2.4) mg/dl Total Bilirubin 1.2 H (0.2-1) mg/dl AST 25 (15-37) U/L ALT 28 (12-78) U/L Alkaline Phosphatase 110 (45-117) U/L Troponin I < 0.015 (0-0.045) ng/ml NT-Pro-B Natriuret Pep 4833 H (0-1800) pg/ml Total Protein 8.0 (6.4-8.2) gm/dl Albumin 3.8 (3.4-5.0) gm/dl Globulin 4.2 H (2.5-4.0) gm/dl Albumin/Globulin Ratio 0.9 (0.9-2) TSH 0.955 (0.300-4.500) uIu/ml Urine Color Urine Appearance (Clear) Urine pH (4.5-7.5) Ur Specific [place] (1.000-1.030) Urine Protein (Negative) Urine Glucose (UA) (Negative) Urine Ketones (Negative) Urine Blood (Negative) Urine Nitrite (Negative) Urine Bilirubin (Negative) Urine Urobilinogen (Negative) Ur Leukocyte Esterase (Negative) Urine WBC (Auto) (0-5) /hpf Urine RBC (Auto) (0-4) /hpf U Hyaline Cast (Auto) (0-5) /lpf U Epithel Cells (Auto) (0-5) /lpf Urine Bacteria (Auto) (Negative) Urine Crystals Calcium Oxalate Crystal (None Prsent) Urine Yeast COVID-19 Eval Order Covid19 at [facility] SARS-CoV-2 (PCR) (Negative) 01/03/21 01/03/21 01/03/21 Range/Units 18:00 18:29 18:30 WBC (4.8-10.8) K/uL RBC (4.2-5.4) M/uL Hgb (12.0-16.0) g/dL Hct (37-47) % MCV (80-100) fL MCH (25-34) pg MCHC (32-36) g/dL RDW Std Deviation (36.4-46.3) fL RDW Coeff of Del (11.5-14.5) % Plt Count (130-400) K/uL MPV (7.4-10.4) fL Immature Gran % (Auto) % Neut % (Auto) % Lymph % (Auto) % [place] % (Auto) % Eos % (Auto) % Baso % (Auto) % Neut # (Auto) (1.4-6.5) K/uL Lymph # (Auto) (1.2-3.4) K/uL [place] # (Auto) (0.11-0.59) K/uL Eos # (Auto) (0-0.5) K/uL Baso # (Auto) (0-0.2) K/uL Immature Gran # (Auto) (0.00-0.02) K/uL Sodium (136-145) mmol/L Potassium (3.5-5.1) mmol/L Chloride (98-107) mmol/L Carbon Dioxide (21-32) mmol/L Anion Gap (3-11) BUN (7-18) mg/dl Creatinine (0.6-1.2) mg/dl Est Cr Clr Drug Dosing Est GFR ( Amer) ml/min Est GFR (Non-Af Amer) ml/min BUN/Creatinine Ratio (10-20) Glucose (70-99) mg/dl Lactate 1.3 (0.4-2.0) mmol/L Calcium (8.5-10.1) mg/dl Magnesium (1.8-2.4) mg/dl Total Bilirubin (0.2-1) mg/dl AST (15-37) U/L ALT (12-78) U/L Alkaline Phosphatase (45-117) U/L Troponin I (0-0.045) ng/ml NT-Pro-B Natriuret Pep (0-1800) pg/ml Total Protein (6.4-8.2) gm/dl Albumin (3.4-5.0) gm/dl Globulin (2.5-4.0) gm/dl Albumin/Globulin Ratio (0.9-2) TSH (0.300-4.500) uIu/ml Urine Color Yellow Urine Appearance Clear (Clear) Urine pH 7.0 (4.5-7.5) Ur Specific [place] 1.012 (1.000-1.030) Urine Protein Negative (Negative) Urine Glucose (UA) Negative (Negative) Urine Ketones Negative (Negative) Urine Blood Negative (Negative) Urine Nitrite Negative (Negative) Urine Bilirubin Negative (Negative) Urine Urobilinogen Negative (Negative) Ur Leukocyte Esterase 1+ H (Negative) Urine WBC (Auto) 5-10 H (0-5) /hpf Urine RBC (Auto) 0-4 (0-4) /hpf U Hyaline Cast (Auto) 1-5 (0-5) /lpf U Epithel Cells (Auto) >30 H (0-5) /lpf Urine Bacteria (Auto) 1+ H (Negative) Urine Crystals Not Reportable Calcium Oxalate Crystal Present A (None Prsent) Urine Yeast Not Reportable COVID-19 Eval Order SARS-CoV-2 (PCR) NEGATIVE (Negative) Administered Medications Discontinued Medications Furosemide (Furosemide 40 Mg/4 Ml Vial) 40 mg IV NOW STA Stop: 01/03/21 20:30 Last Admin: 01/03/21 20:46 Dose: 40 mg Documented by: [id number] Hydralazine HCl (Hydralazine Hcl 20 Mg/Ml Vial) 10 mg IV NOW STA Stop: 01/03/21 20:30 Last Admin: 01/03/21 20:46 Dose: 10 mg Documented by: [id number] Labetalol HCl (Labetalol Hcl Iv 5 Mg/Ml 20ml) 10 mg IV NOW STA Stop: 01/03/21 17:45 Last Admin: 01/03/21 17:57 Dose: 10 mg Documented by: [id number] Cosigned by: [id number] Labetalol HCl (Labetalol Hcl Iv 5 Mg/Ml 20ml) 10 mg IV NOW STA Stop: 01/03/21 18:43 Last Admin: 01/03/21 18:47 Dose: 10 mg Documented by: [id number] Cosigned by: [id number] Ondansetron HCl (Ondansetron Inj 2 Mg/Ml 2 Ml Vial) 4 mg IV NOW STA Stop: 01/03/21 17:45 Last Admin: 01/03/21 17:57 Dose: 4 mg Documented by: [id number] Imaging Data Radiologist's Impression: Chest X-Ray 01/03/21 17:44 XR chest 1V portable CLINICAL HISTORY: weakness COMPARISON STUDY: Chest radiograph July 24, 2020. FINDINGS: Patient is rotated. Cardiomegaly is noted. There is pulmonary edema. A large left pleural effusion is increased in size since prior exam. There is a small right pleural effusion. No pneumothorax. IMPRESSION: 1. Increase in size of a large left pleural effusion with associated airspace opacity which may reflect atelectasis or less likely consolidation. Small right pleural effusion. 2. Pulmonary edema. ACT 112: Negative or not required by law. Electronically signed by: Santiago Leon M.D. 01/03/2021 5:[address] 01/03/21 17:44 CT OF THE HEAD WITHOUT CONTRAST CLINICAL HISTORY: weakness COMPARISON STUDY: Head CT July 24, 2020. CT DOSE: 614.27 mGy.cm TECHNIQUE: Helical axial images of the head were obtained without IV contrast. Automated exposure control was utilized for the study. A dose lowering technique was utilized adhering to the principles of ALARA. FINDINGS: No acute intracranial hemorrhage, midline shift or mass effect is present. Ventricular system is stable. Basal cisterns are patent. There are no extra-axial collections. There is moderate atrophy. 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 Old left nasal bone deformity is noted. Incidental note is made of venous gas, likely from IV. There is no acute calvarial fracture. IMPRESSION: No acute intracranial findings. No change in appearance of the brain. ACT 112: Negative or not required by law. Electronically signed by: Santiago Leon M.D. 01/03/2021 7:18 PM Discharge Plan Visit Data Chief Complaint: Hypertension ED Provider: Edgar Ramirez Discharge Problem: Weakness, Hypertension, SOB (shortness of breath), Pleural effusion Patient Disposition: Admitted As Inpatient Condition: Fair Forms Stand Alone Forms: [facility] Prescriptions Prescriptions: No Action sennosides-docusate sodium [Senna Plus] 8.6-50 mg tablet 1 tab PO BID RF: 0 levothyroxine 100 mcg tablet 100 mcg PO QAM RF: 0 magnesium oxide [MagOx] 400 mg (241.3 mg magnesium) tablet 400 mg PO QAM RF: 0 cyanocobalamin (vitamin B-12) [Vitamin B-12] 1,000 mcg Tablet 2,000 mcg PO QAM RF: 0 aspirin 81 mg Tablet,Delayed Release (Dr/Ec) 81 mg PO QAM RF: 0 atorvastatin 40 mg tablet 40 mg PO HS RF: 0 losartan 25 mg tablet 25 mg PO HS RF: 0 metoprolol succinate 25 mg tablet extended release 24 hr 75 mg PO QAM RF: 0 polyethylene glycol 3350 17 gram/dose Powder 17 g PO QAM RF: 0 calcium carbonate-vitamin D3 [Calcium 500 + D] 500 mg(1,250mg) -400 unit Tablet 1 tab PO Q12H RF: 0 mupirocin 2 % Ointment 1 applic TOPICAL HS RF: 0 tramadol 50 mg Tablet 50 mg PO BID PRN (Reason: pain moderate to severe) RF: 0 nystatin 100,000 unit/gram Cream 1 applic TOPICAL BID PRN (Reason: Skin Irritation) RF: 0 lidocaine HCl [Aspercreme (lidocaine HCl)] 4 % Cream 1 applic TOPICAL HS PRN (Reason: Pain) RF: 0 acetaminophen 325 mg Tablet 650 mg PO Q4 MDD 3g PRN (Reason: Pain, Mild) RF: 0 acetaminophen 325 mg Tablet 650 mg PO Q4 MDD 3g PRN (Reason: fever > 100) RF: 0 ferrous sulfate 325 mg (65 mg iron) Tablet 325 mg PO Q OTHER DAY RF: 0 oxymetazoline [Afrin (oxymetazoline)] 0.05 % [place],Non-Aerosol 2 spray INTRANASAL UD PRN (Reason: nose bleeds) RF: 0 Referrals Referrals: Cristela [email or web address] [Primary Care Provider] -
[2021-01-03 17:57] LABS: Basophils # (auto) 0.02 K/uL (0-0.2); Basophils % (auto) 0.3 %; Eosinophils # (auto) 0.08 K/uL (0-0.5); Eosinophils % (auto) 1.1 %; Hematocrit (blood only) 46.7 % (37-47); Hemoglobin 15.5 g/dL (12.0-16.0); Immature Granulocytes # (auto) 0.01 K/uL (0.00-0.02); Immature Granulocytes % (auto) 0.1 %; Lymphocytes # (auto) 1.93 K/uL (1.2-3.4); Lymphocytes % (auto) 26.8 %; Mean Corpuscular Hemoglobin 29.3 pg (25-34); Mean Corpuscular Hgb Conc 33.2 g/dL (32-36); Mean Corpuscular Volume 88.3 fL (80-100); Mean Platelet Volume 10.8 fL (7.4-10.4); Monocytes # (auto) 0.68 K/uL (0.11-0.59); Monocytes % (auto) 9.4 %; Neutrophils # (auto) 4.48 K/uL (1.4-6.5); Neutrophils % (auto) 62.3 %; Platelet Count 205 K/uL (130-400); RDW Coefficient of Variation 20.8 % (11.5-14.5); RDW Standard Deviation 66.9 fL (36.4-46.3); Red Blood Count 5.29 M/uL (4.2-5.4)
--- NOTE | 2021-01-03 18:01 | XRay Report ---
XR chest 1V portable CLINICAL HISTORY: weakness COMPARISON STUDY: Chest radiograph July 24, 2020. FINDINGS: Patient is rotated. Cardiomegaly is noted. There is pulmonary edema. A large left pleural e ffusion is increased in size since prior exam. There is a small right pleural effusion. No pneumothor ax. IMPRESSION: 1. Increase in size of a large left pleural effusion with associated airspace opacity which may refle ct atelectasis or less likely consolidation. Small right pleural effusion. 2. Pulmonary edema. ACT 112: Negative or not required by law. Electronically signed by: Santiago Leon M.D. 01/03/2021 5:59 PM
[2021-01-03 18:19] LABS: Alanine Aminotransferase 28 U/L (12-78); Albumin Level 3.8 gm/dl (3.4-5.0); Aspartate Aminotransferase 25 U/L (15-37); BUN Creatinine Ratio 15.7 (10-20); Blood Urea Nitrogen 12 mg/dl (7-18); Calcium 9.4 mg/dl (8.5-10.1); Carbon Dioxide 27 mmol/L (21-32); Chloride 101 mmol/L (98-107); Est GFR (African American) 82.2 ml/min; Est GFR (Non-African American) 70.9 ml/min; Glucose 99 mg/dl (70-99); Magnesium 2.1 mg/dl (1.8-2.4); Potassium 4.1 mmol/L (3.5-5.1); Sodium 133 mmol/L (136-145)
[2021-01-03 18:21] LABS: Albumin Globulin Ratio 0.9 (0.9-2); Bilirubin,Total 1.2 mg/dl (0.2-1); Globulin 4.2 gm/dl (2.5-4.0)
[2021-01-03 18:32] LABS: Alkaline Phosphatase 110 U/L (45-117); NT Pro B Type Natriuretic Pept 4833 pg/ml (0-1800); Thyroid Stimulating Hormone 0.955 uIu/ml (0.300-4.500); Troponin I < 0.015 ng/ml (0-0.045)
[2021-01-03 19:00] LABS: Appearance Urine Clear (Clear); Bilirubin Urine Negative (Negative); Blood Urine Negative (Negative); Color Urine Yellow; Epithelial Cell Urine Auto >30 /lpf (0-5); Glucose Urine UA Negative (Negative); Ketones Urine Negative (Negative); Leukocyte Esterase Urine 1+ (Negative); Nitrite Urine Negative (Negative); Protein Urine Negative (Negative); Specific Gravity Urine 1.012 (1.000-1.030); Urobilinogen Urine Negative (Negative)
[2021-01-03 19:18] LABS: Bacteria Urine Automated 1+ (Negative); RBC Urine Automated 0-4 /hpf (0-4)
[2021-01-03 19:19] LABS: Calcium Oxalate Crystals Urine Present (None Prsent)
--- NOTE | 2021-01-03 19:19 | CT Scan Report ---
CT OF THE HEAD WITHOUT CONTRAST CLINICAL HISTORY: weakness COMPARISON STUDY: Head CT July 24, 2020. CT DOSE: 614.27 mGy.cm TECHNIQUE: Helical axial images of the head were obtained without IV contrast. Automated exposure con trol was utilized for the study. A dose lowering technique was utilized adhering to the principles o f ALARA. FINDINGS: No acute intracranial hemorrhage, midline shift or mass effect is present. Ventricular syst em is stable. Basal cisterns are patent. There are no extra-axial collections. There is moderate atro phy. 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 Ol d left nasal bone deformity is noted. Incidental note is made of venous gas, likely from IV. There is no acute calvarial fracture. IMPRESSION: No acute intracranial findings. No change in appearance of the brain. ACT 112: Negative or not required by law. Electronically signed by: Santiago Leon M.D. 01/03/2021 7:18 PM
[2021-01-03] MEDS ORDERED: FUROSEMIDE 40 MG/4 ML VIAL IV STA (20:29)
[2021-01-03] MEDS ORDERED: hydrALAZINE HCL 20 MG/ML VIAL IV STA (20:29)
--- NOTE | 2021-01-03 22:01 | History & Physical Report ---
Date of Service January 03, 2021 Assessment & Plan (1) Decompensated heart failure: Plan: Possibly from uncontrolled BP hx sick sinus syndrome status post PPM off Coumadin secondary to traumatic intracranial hemorrhage, Hypothyroidism, euthyroid as of today's TSH Prediabetes, hemoglobin A1c of 5.8 2019 Post laxative diarrhea rule out C. difficile Episodic left hip pain rule out bony pathology PCU Diuretic Rx Strict I/Os, daily weights, CHF education TTE, Cardiology consult Re: Decompensated CHF Titrate home BP meds, increase Losartan dose for now Stool C. difficile Plain x-ray left hip DVT prophylaxis. Lovenox subcu Full code Text document was generated using [employer] voice recognition software. It may contain grammatical or spelling errors. Kindly contact undersigned for clarification of any documentation item in question. History of Present Illness Chief Complaint: Dizziness, shortness of breath Primary Care Provider: Dr. Bermudez History obtained from patient, family, and records. Patient is a fair historian. Medical history significant for sick sinus syndrome status post PPM off Coumadin secondary to traumatic intracranial hemorrhage, hypertension, hypothyroidism, chronic hyponatremia, PVD, prediabetes. Last confinement June 2020 for COVID-19 infection. Patient not feeling well the last 3 days. Complaining of dizziness with shortness of breath and nausea. No headache. No chest pain, no unusual cough symptoms. Diarrhea symptoms without abdominal pain. Episodic achy left hip pain. No recollection of recent trauma. At the ER, SBP 190s at the highest. IV Labetalol and hydralazine administered at the ER. Lasix given for CHF. 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 Allergies Allergy/AdvReac Type Severity Reaction Status Date / Time mirtazapine Allergy Unknown Rash Verified 01/03/21 17:52 lisinopril AdvReac Unknown Cough Verified 01/03/21 17:52 Home Medications Medication Instructions Recorded Confirmed Type levothyroxine 100 mcg tablet 100 mcg PO QAM 05/11/19 01/03/21 History magnesium oxide 400 mg (241.3 mg 400 mg PO QAM 05/11/19 01/03/21 History magnesium) tablet (MagOx) sennosides 8.6 mg-docusate sodium 1 tab PO BID 05/11/19 01/03/21 History 50 mg tablet (Senna Plus) atorvastatin 40 mg tablet 40 mg PO HS 02/05/20 01/03/21 History calcium carbonate 500 mg (1,250 1 tab PO Q12H 02/05/20 01/03/21 History mg)-vitamin D3 400 unit tablet (Calcium 500 + D) losartan 25 mg tablet 25 mg PO HS 02/05/20 01/03/21 History metoprolol succinate 25 mg 75 mg PO QAM 02/05/20 01/03/21 History tablet,extended release 24 hr polyethylene glycol 3350 17 17 g PO QAM 02/05/20 01/03/21 History gram/dose oral powder mupirocin 2 % topical ointment 1 applic TOPICAL HS 03/06/20 01/03/21 History lidocaine HCl 4 % topical cream 1 applic TOPICAL HS PRN 05/18/20 01/03/21 History (Aspercreme (lidocaine HCl)) nystatin 100,000 unit/gram topical 1 applic TOPICAL BID PRN 05/18/20 01/03/21 History cream tramadol 50 mg tablet 50 mg PO BID PRN 05/18/20 01/03/21 History aspirin 81 mg tablet,delayed 81 mg PO QAM 07/21/20 01/03/21 History release cyanocobalamin (vitamin B-12) 2,000 mcg PO QAM 07/21/20 01/03/21 History 1,000 mcg tablet (Vitamin B-12) acetaminophen 325 mg tablet 650 mg PO Q4 PRN MDD 3g 01/03/21 01/03/21 History acetaminophen 325 mg tablet 650 mg PO Q4 PRN MDD 3g 01/03/21 01/03/21 History ferrous sulfate 325 mg (65 mg 325 mg PO Q OTHER DAY 01/03/21 01/03/21 History iron) tablet oxymetazoline 0.05 % nasal spray 2 spray INTRANASAL UD PRN 01/03/21 01/03/21 History (Afrin (oxymetazoline)) Past Med/Surg History Medical History Anxiety Atrial fibrillation No AC secondary to history of bleeding issues (traumatic brain hemorrhage/intra- abdominal hemorrhage) Chronic hyponatremia Constipation COVID-19 Fracture of neck of scapula HTN (hypertension) Hyperlipidemia Hypomagnesemia Hypothyroidism Osteoarthritis Sick sinus syndrome S/p pacemaker TIA (transient ischemic attack) Possible in December 08, 2019 TIA 05/2019 per records. Last seen by neuro= 01/08/20- follow up PRN. Continue ASA. Surgical History H/O colonoscopy History of pacemaker Family History Other Cancer Social History Smoking Status: Never smoker Hx Alcohol Use: No Hx Substance Use: No Preferred Language: Finnish Communication Ability: Effective Media Sales Representative Required: No Beliefs That Will Affect Care: None marital status: Current Living Situation: Spouse and Personal Care Facility Current Living Situation Comment: Cristela Ayon current occupational status: retired Feels Safe at Home: Yes Safety Concerns: Feels Safe At This Time Assistive Devices: None Review of Systems Review of Systems: As per HPI, all 10 systems reviewed, all other ROS negative Physical Exam Physical Exam: GENERAL: Comfortable, slightly hard of hearing, no respiratory distress SKIN: Normal color, warm HEENT: [place] palpebral conjunctivae, no ptosis, dry buccal mucosa NECK : Supple, no tenderness CHEST : Decreased breath sounds, no tenderness HEART : Irregular, apical systolic murmur ABDOMEN: Some distention, nontender EXTREMITIES : Bilateral LE swelling, no LE tenderness, no other conspicuous deformities noted NEUROLOGIC : Coherent, no facial asymmetry, mild hearing impairment, no other gross focality Results & Data Results & Data ([facility]) Vital Signs (Past 12 Hours) Vital Signs Temp Pulse Pulse Resp BP BP Pulse Ox 01/03/21 20:45 101 H 18 137/93 90 01/03/21 19:23 94 H 18 128/93 94 01/03/21 18:01 104 H 17 146/91 H 95 01/03/21 17:41 36.6 C 96 H 18 194/139 H 97 01/03/21 17:30 88 20 186/144 H 95 Laboratory Results Laboratory Results WBC 7.20 K/uL (4.8-10.8) 01/03/21 17:38 RBC 5.29 M/uL (4.2-5.4) 01/03/21 17:38 Hgb 15.5 g/dL (12.0-16.0) 01/03/21 17:38 Hct 46.7 % (37-47) 01/03/21 17:38 MCV 88.3 fL (80-100) 01/03/21 17:38 MCH 29.3 pg (25-34) 01/03/21 17:38 MCHC 33.2 g/dL (32-36) 01/03/21 17:38 RDW Std Deviation 66.9 fL (36.4-46.3) H 01/03/21 17:38 RDW Coeff of Del 20.8 % (11.5-14.5) H 01/03/21 17:38 Plt Count 205 K/uL (130-400) 01/03/21 17:38 MPV 10.8 fL (7.4-10.4) H 01/03/21 17:38 Immature Gran % (Auto) 0.1 % 01/03/21 17:38 Neut % (Auto) 62.3 % 01/03/21 17:38 Lymph % (Auto) 26.8 % 01/03/21 17:38 [place] % (Auto) 9.4 % 01/03/21 17:38 Eos % (Auto) 1.1 % 01/03/21 17:38 Baso % (Auto) 0.3 % 01/03/21 17:38 Neut # (Auto) 4.48 K/uL (1.4-6.5) 01/03/21 17:38 Lymph # (Auto) 1.93 K/uL (1.2-3.4) 01/03/21 17:38 [place] # (Auto) 0.68 K/uL (0.11-0.59) H 01/03/21 17:38 Eos # (Auto) 0.08 K/uL (0-0.5) 01/03/21 17:38 Baso # (Auto) 0.02 K/uL (0-0.2) 01/03/21 17:38 Immature Gran # (Auto) 0.01 K/uL (0.00-0.02) 01/03/21 17:38 Sodium 133 mmol/L (136-145) L 01/03/21 17:38 Potassium 4.1 mmol/L (3.5-5.1) 01/03/21 17:38 Chloride 101 mmol/L (98-107) 01/03/21 17:38 Carbon Dioxide 27 mmol/L (21-32) 01/03/21 17:38 Anion Gap 5.0 (3-11) 01/03/21 17:38 BUN 12 mg/dl (7-18) 01/03/21 17:38 Creatinine 0.77 mg/dl (0.6-1.2) 01/03/21 17:38 Est Cr Clr Drug Dosing Not Reportable 01/03/21 17:38 Est GFR ( Amer) 82.2 ml/min 01/03/21 17:38 Est GFR (Non-Af Amer) 70.9 ml/min 01/03/21 17:38 BUN/Creatinine Ratio 15.7 (10-20) 01/03/21 17:38 Glucose 99 mg/dl (70-99) 01/03/21 17:38 Lactate 1.3 mmol/L (0.4-2.0) 01/03/21 18:29 Calcium 9.4 mg/dl (8.5-10.1) 01/03/21 17:38 Magnesium 2.1 mg/dl (1.8-2.4) 01/03/21 17:38 Total Bilirubin 1.2 mg/dl (0.2-1) H 01/03/21 17:38 AST 25 U/L (15-37) 01/03/21 17:38 ALT 28 U/L (12-78) 01/03/21 17:38 Alkaline Phosphatase 110 U/L (45-117) 01/03/21 17:38 Troponin I < 0.015 ng/ml (0-0.045) 01/03/21 17:38 NT-Pro-B Natriuret Pep 4833 pg/ml (0-1800) H 01/03/21 17:38 Total Protein 8.0 gm/dl (6.4-8.2) 01/03/21 17:38 Albumin 3.8 gm/dl (3.4-5.0) 01/03/21 17:38 Globulin 4.2 gm/dl (2.5-4.0) H 01/03/21 17:38 Albumin/Globulin Ratio 0.9 (0.9-2) 01/03/21 17:38 TSH 0.955 uIu/ml (0.300-4.500) 01/03/21 17:38 Urine Color Yellow 01/03/21 18:30 Urine Appearance Clear (Clear) 01/03/21 18:30 Urine pH 7.0 (4.5-7.5) 01/03/21 18:30 Ur Specific [place] 1.012 (1.000-1.030) 01/03/21 18:30 Urine Protein Negative (Negative) 01/03/21 18:30 Urine Glucose (UA) Negative (Negative) 01/03/21 18:30 Urine Ketones Negative (Negative) 01/03/21 18:30 Urine Blood Negative (Negative) 01/03/21 18: Urine Nitrite Negative (Negative) 01/03/21 18:30 Urine Bilirubin Negative (Negative) 01/03/21 18:30 Urine Urobilinogen Negative (Negative) 01/03/21 18:30 Ur Leukocyte Esterase 1+ (Negative) H 01/03/21 18:30 Urine WBC (Auto) 5-10 /hpf (0-5) H 01/03/21 18:30 Urine RBC (Auto) 0-4 /hpf (0-4) 01/03/21 18:30 U Hyaline Cast (Auto) 1-5 /lpf (0-5) 01/03/21 18:30 U Epithel Cells (Auto) >30 /lpf (0-5) H 01/03/21 18:30 Urine Bacteria (Auto) 1+ (Negative) H 01/03/21 18:30 Urine Crystals Not Reportable 01/03/21 18:30 Calcium Oxalate Crystal Present (None Prsent) A 01/03/21 18:30 Urine Yeast Not Reportable 01/03/21 18:30 COVID-19 Eval Order Covid19 at [facility] 01/03/21 18:00 SARS-CoV-2 (PCR) NEGATIVE (Negative) 01/03/21 18:00 Impressions Chest X-Ray 01/03/21 17:44 XR chest 1V portable CLINICAL HISTORY: weakness COMPARISON STUDY: Chest radiograph July 24, 2020. FINDINGS: Patient is rotated. Cardiomegaly is noted. There is pulmonary edema. A large left pleural effusion is increased in size since prior exam. There is a small right pleural effusion. No pneumothorax. IMPRESSION: 1. Increase in size of a large left pleural effusion with associated airspace opacity which may reflect atelectasis or less likely consolidation. Small right pleural effusion. 2. Pulmonary edema. ACT 112: Negative or not required by law. Electronically signed by: Santiago Leon M.D. 01/03/2021 5:[address] 01/03/21 17:44 CT OF THE HEAD WITHOUT CONTRAST CLINICAL HISTORY: weakness COMPARISON STUDY: Head CT July 24, 2020. CT DOSE: 614.27 mGy.cm TECHNIQUE: Helical axial images of the head were obtained without IV contrast. Automated exposure control was utilized for the study. A dose lowering technique was utilized adhering to the principles of ALARA. FINDINGS: No acute intracranial hemorrhage, midline shift or mass effect is present. Ventricular system is stable. Basal cisterns are patent. There are no extra-axial collections. There is moderate atrophy. 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 Old left nasal bone deformity is noted. Incidental note is made of venous gas, likely from IV. There is no acute calvarial fracture. IMPRESSION: No acute intracranial findings. No change in appearance of the br ain. ACT 112: Negative or not required by law. Electronically signed by: Santiago Leon M.D. 01/03/2021 7:18 PM Diagnostic Findings EKG as per interpretation rate 95, A. fib, LAD, LAFB, T wave abnormalities inferior and septal leads
[2021-01-03 22:41] LABS: Anisocytosis Present; Echinocytes 1+
[2021-01-04] MEDS ORDERED: NITROGLYCERIN SL 0.4 MG/TAB TAB SL PRN (00:12)
[2021-01-04] MEDS ORDERED: traMADol HCL 50 MG TABLET PO PRN (00:12)
[2021-01-04] MEDS ORDERED: PROMETHAZINE HCL 12.5 MG in SODIUM CHLORIDE 0.9% 50 ML IV PRN (00:12)
[2021-01-04] MEDS ORDERED: PATIENT'S HEIGHT AND/OR WEIGHT NEEDED SCH (00:30)
[2021-01-04] MEDS ORDERED: METOPROLOL SUCC 25MG EXT REL TAB PO SCH ×2 (00:30→09:00)
[2021-01-04] MEDS: LOSARTAN POTASSIUM 50 MG TAB PO SCH ×2 (01:09→19:43)
[2021-01-04] MEDS: LEVOTHYROXINE SODIUM 100 MCG TABLET PO SCH (05:40)
[2021-01-04 06:10] LABS: Basophils # (auto) 0.01 K/uL (0-0.2); Basophils % (auto) 0.2 %; Eosinophils # (auto) 0.08 K/uL (0-0.5); Eosinophils % (auto) 1.2 %; Hematocrit (blood only) 44.3 % (37-47); Hemoglobin 14.6 g/dL (12.0-16.0); Immature Granulocytes # (auto) 0.01 K/uL (0.00-0.02); Immature Granulocytes % (auto) 0.2 %; Lymphocytes % (auto) 23.1 %; Mean Corpuscular Hemoglobin 28.8 pg (25-34); Mean Corpuscular Volume 87.4 fL (80-100); Mean Platelet Volume 10.9 fL (7.4-10.4); Monocytes # (auto) 0.57 K/uL (0.11-0.59); Monocytes % (auto) 8.8 %; Neutrophils # (auto) 4.33 K/uL (1.4-6.5); Neutrophils % (auto) 66.5 %; Platelet Count 177 K/uL (130-400); RDW Coefficient of Variation 20.7 % (11.5-14.5); RDW Standard Deviation 65.6 fL (36.4-46.3); Red Blood Count 5.07 M/uL (4.2-5.4)
[2021-01-04 06:41] LABS: BUN Creatinine Ratio 12.1 (10-20); Creatinine Clr Calc Pharmacy 47.6 ml/min; Est GFR (African American) 76.2 ml/min; Est GFR (Non-African American) 65.7 ml/min; Potassium 3.5 mmol/L (3.5-5.1)
[2021-01-04 06:46] LABS: Anisocytosis Present
--- NOTE | 2021-01-04 08:12 | XRay Report ---
SINGLE VIEW PELVIS; 2 VIEWS LEFT HIP CLINICAL HISTORY: Fall. Left hip pain. FINDINGS: An AP view of the pelvis with AP and frog-leg views of the left hip are compared to study d ated 07/11/2018. The skeletal structures are osteopenic. There is no radiographic evidence of acute fra cture involving the hips or bony pelvis. Moderate arthritic change and degenerative joint space narro wing is seen in the hips. Degenerative sclerosis is noted in the sacroiliac joints. Lumbosacral spond ylosis is partially visualized. Small enthesophytes arise from the anterior superior iliac spines. Th e overlying soft tissues are normal as imaged. There is advanced atherosclerotic calcification of the femoral arteries. IMPRESSION: Osteopenia and degenerative change as above with no acute bony abnormality identified. Electronically signed by: Edgar Wen M.D. 01/04/2021 8:11 AM
[2021-01-04] MEDS: CYANOCOBALAMIN 500 MCG TABLET (VITAMIN B-12) PO SCH (08:38)
[2021-01-04] MEDS: FUROSEMIDE 40 MG in SYRINGE 0 ML IV SCH ×2 (08:38→16:43)
[2021-01-04] MEDS: ENOXAPARIN INJ 30 MG/0.3 ML SYR SQ SCH (08:38)
[2021-01-04] MEDS: FERROUS SULFATE 325 MG TAB PO SCH (08:38)
[2021-01-04] MEDS: ASPIRIN 81 MG ECTAB PO SCH (08:38)
[2021-01-04] MEDS: POTASSIUM CHLORIDE CRTAB 20 MEQ TABCR PO SCH ×2 (08:39→19:44)
[2021-01-04] MEDS: METOPROLOL SUCC 25MG EXT REL TAB PO SCH (08:39)
[2021-01-04] MEDS ORDERED: FUROSEMIDE 40 MG/4 ML VIAL IV SCH (09:00)
[2021-01-04] MEDS ORDERED: DOCUSATE SODIUM/SENNA 50/8.6MG TAB PO SCH (09:00)
[2021-01-04] MEDS ORDERED: POLYETHYLENE (MIRALAX) 17 GM PACK PO SCH (09:00)
--- NOTE | 2021-01-04 12:14 | Hospitalist Progress Note ---
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 Moderate concentric LVH. Apical wall motion abnormality may reflect pacemaker activation. No regional wall motion abnormalities noted. EF 60 to 65%. There is biatrial enlargement. Aortic valve sclerosis moderate, without significant aortic valvular stenosis. Trace aortic regurg. There is moderate mitral regurg. There is mild to moderate tricuspid regurg. RV systolic pressure is elevated at 30 to 40 mmHg. Moderate sized left pleural effusion. Repeat CXR to eval left pleural effusion a.m. Pulmonary consultation for left pleural effusion AM Hypothyroidism, euthyroid as of today's TSH Prediabetes, hemoglobin A1c of 5.8 2019 Post laxative diarrhea rule out C. difficile Episodic left hip pain rule out bony pathology Plain x-ray left hip IMPRESSION: Osteopenia and degenerative change as above with no acute bony abnormality identified. DVT prophylaxis. Lovenox subcu Full code Admission and Anticipated Discharge Date Admission Date: January 03, 2021 Subjective Patient seen in follow-up of acute heart failure with preserved ejection fraction, pleural effusions Patient is currently sitting up in a chair, in no acute distress, breathing comfortably on room air She is speaking in full sentences without any difficulty Somewhat distressed, about her , talked to psychiatry liaison nurse Currently denies any chest pain, shortness of breath abdominal pain, nausea or vomiting Tried to update patient's daughter, however I was only able to leave a message on her phone. Review of Systems Review of Systems: All systems reviewed & are unremarkable except as noted in Subjective Physical Exam Physical Exam: GENERAL: Elderly female,in no respiratory distress , conversing easily on room air SKIN: Normal color, warm HEENT: NC/AT, [place] palpebral conjunctivae, no ptosis, dry buccal mucosa NECK : Supple, no tenderness CHEST : Decreased breath sounds, bibasilar crackles, no tenderness HEART : Irregular rhythm, apical systolic murmur ABDOMEN: mild distention, nontender EXTREMITIES : 1+ b/l LE edema, no LE tenderness NEUROLOGIC : Alert awake, answering most questions appropriately, however difficulty remembering that she is in the hospital, no facial asymmetry, mild hearing impairment, moving extremities spontaneously and without difficulty Results & Data Results & Data ([facility]) Vital Signs (Past 12 Hours) Vital Signs Temp Pulse Resp BP Pulse Ox 01/04/21 11:45 81 18 136/98 94 01/04/21 08:10 36.3 C L 80 20 153/103 H 93 01/04/21 03:15 36.7 C 72 18 155/95 H 95 Laboratory Results 01/04/21 01/04/21 01/03/21 Range/Units 05:38 05:38 18:30 WBC 6.50 (4.8-10.8) K/uL RBC 5.07 (4.2-5.4) M/uL Hgb 14.6 (12.0-16.0) g/dL Hct 44.3 (37-47) % MCV 87.4 (80-100) fL MCH 28.8 (25-34) pg MCHC 33.0 (32-36) g/dL RDW Std Deviation 65.6 H (36.4-46.3) fL RDW Coeff of Del 20.7 H (11.5-14.5) % Plt Count 177 (130-400) K/uL MPV 10.9 H (7.4-10.4) fL Immature Gran % (Auto) 0.2 % Neut % (Auto) 66.5 % Lymph % (Auto) 23.1 % [place] % (Auto) 8.8 % Eos % (Auto) 1.2 % Baso % (Auto) 0.2 % Neut # (Auto) 4.33 (1.4-6.5) K/uL Lymph # (Auto) 1.50 (1.2-3.4) K/uL [place] # (Auto) 0.57 (0.11-0.59) K/uL Eos # (Auto) 0.08 (0-0.5) K/uL Baso # (Auto) 0.01 (0-0.2) K/uL Immature Gran # (Auto) 0.01 (0.00-0.02) K/uL Anisocytosis Present Echinocytes Sodium 133 L (136-145) mmol/L Potassium 3.5 (3.5-5.1) mmol/L Chloride 99 (98-107) mmol/L Carbon Dioxide 29 (21-32) mmol/L Anion Gap 5.0 (3-11) BUN 10 (7-18) mg/dl Creatinine 0.82 (0.6-1.2) mg/dl Est Cr Clr Drug Dosing 47.6 Est GFR ( Amer) 76.2 ml/min Est GFR (Non-Af Amer) 65.7 ml/min BUN/Creatinine Ratio 12.1 (10-20) Glucose 90 (70-99) mg/dl Lactate (0.4-2.0) mmol/L Calcium 9.0 (8.5-10.1) mg/dl Magnesium (1.8-2.4) mg/dl Total Bilirubin (0.2-1) mg/dl AST (15-37) U/L ALT (12-78) U/L Alkaline Phosphatase (45-117) U/L Troponin I (0-0.045) ng/ml NT-Pro-B Natriuret Pep (0-1800) pg/ml Total Protein (6.4-8.2) gm/dl Albumin (3.4-5.0) gm/dl Globulin (2.5-4.0) gm/dl Albumin/Globulin Ratio (0.9-2) TSH (0.300-4.500) uIu/ml Urine Color Yellow Urine Appearance Clear (Clear) Urine pH 7.0 (4.5-7.5) Ur Specific [place] 1.012 (1.000-1.030) Urine Protein Negative (Negative) Urine Glucose (UA) Negative (Negative) Urine Ketones Negative (Negative) Urine Blood Negative (Negative) Urine Nitrite Negative (Negative) Urine Bilirubin Negative (Negative) Urine Urobilinogen Negative (Negative) Ur Leukocyte Esterase 1+ H (Negative) Urine WBC (Auto) 5-10 H (0-5) /hpf Urine RBC (Auto) 0-4 (0-4) /hpf U Hyaline Cast (Auto) 1-5 (0-5) /lpf U Epithel Cells (Auto) >30 H (0-5) /lpf Urine Bacteria (Auto) 1+ H (Negative) Urine Crystals Not Reportable Calcium Oxalate Crystal Present A (None Prsent) Urine Yeast Not Reportable COVID-19 Eval Order SARS-CoV-2 (PCR) (Negative) 01/03/21 01/03/21 01/03/21 Range/Units 18:29 18:00 18:00 WBC (4.8-10.8) K/uL RBC (4.2-5.4) M/uL Hgb (12.0-16.0) g/dL Hct (37-47) % MCV (80-100) fL MCH (25-34) pg MCHC (32-36) g/dL RDW Std Deviation (36.4-46.3) fL RDW Coeff of Edl (11.5-14.5) % Plt Count (130-400) K/uL MPV (7.4-10.4) fL Immature Gran % (Auto) % Neut % (Auto) % Lymph % (Auto) % [place] % (Auto) % Eos % (Auto) % Baso % (Auto) % Neut # (Auto) (1.4-6.5) K/uL Lymph # (Auto) (1.2-3.4) K/uL [place] # (Auto) (0.11-0.59) K/uL Eos # (Auto) (0-0.5) K/uL Baso # (Auto) (0-0.2) K/uL Immature Gran # (Auto) (0.00-0.02) K/uL Anisocytosis Echinocytes Sodium (136-145) mmol/L Potassium (3.5-5.1) mmol/L Chloride (98-107) mmol/L Carbon Dioxide (21-32) mmol/L Anion Gap (3-11) BUN (7-18) mg/dl Creatinine (0.6-1.2) mg/dl Est Cr Clr Drug Dosing Est GFR ( Amer) ml/min Est GFR (Non-Af Amer) ml/min BUN/Creatinine Ratio (10-20) Glucose (70-99) mg/dl Lactate 1.3 (0.4-2.0) mmol/L Calcium (8.5-10.1) mg/dl Magnesium (1.8-2.4) mg/dl Total Bilirubin (0.2-1) mg/dl AST (15-37) U/L ALT (12-78) U/L Alkaline Phosphatase (45-117) U/L Troponin I (0-0.045) ng/ml NT-Pro-B Natriuret Pep (0-1800) pg/ml Total Protein (6.4-8.2) gm/dl Albumin (3.4-5.0) gm/dl Globulin (2.5-4.0) gm/dl Albumin/Globulin Ratio (0.9-2) TSH (0.300-4.500) uIu/ml Urine Color Urine Appearance (Clear) Urine pH (4.5-7.5) Ur Specific [place] (1.000-1.030) Urine Protein (Negative) Urine Glucose (UA) (Negative) Urine Ketones (Negative) Urine Blood (Negative) Urine Nitrite (Negative) Urine Bilirubin (Negative) Urine Urobilinogen (Negative) Ur Leukocyte Esterase (Negative) Urine WBC (Auto) (0-5) /hpf Urine RBC (Auto) (0-4) /hpf U Hyaline Cast (Auto) (0-5) /lpf U Epithel Cells (Auto) (0-5) /lpf Urine Bacteria (Auto) (Negative) Urine Crystals Calcium Oxalate Crystal (None Prsent) Urine Yeast COVID-19 Eval Order Covid19 at [facility] SARS-CoV-2 (PCR) NEGATIVE (Negative) 01/03/21 01/03/21 Range/Units 17:38 17:38 WBC 7.20 (4.8-10.8) K/uL RBC 5.29 (4.2-5.4) M/uL Hgb 15.5 (12.0-16.0) g/dL Hct 46.7 (37-47) % MCV 88.3 (80-100) fL MCH 29.3 (25-34) pg MCHC 33.2 (32-36) g/dL RDW Std Deviation 66.9 H (36.4-46.3) fL RDW Coeff of Del 20.8 H (11.5-14.5) % Plt Count 205 (130-400) K/uL MPV 10.8 H (7.4-10.4) fL Immature Gran % (Auto) 0.1 % Neut % (Auto) 62.3 % Lymph % (Auto) 26.8 % [place] % (Auto) 9.4 % Eos % (Auto) 1.1 % Baso % (Auto) 0.3 % Neut # (Auto) 4.48 (1.4-6.5) K/uL Lymph # (Auto) 1.93 (1.2-3.4) K/uL [place] # (Auto) 0.68 H (0.11-0.59) K/uL Eos # (Auto) 0.08 (0-0.5) K/uL Baso # (Auto) 0.02 (0-0.2) K/uL Immature Gran # (Auto) 0.01 (0.00-0.02) K/uL Anisocytosis Present Echinocytes 1+ Sodium 133 L (136-145) mmol/L Potassium 4.1 (3.5-5.1) mmol/L Chloride 101 (98-107) mmol/L Carbon Dioxide 27 (21-32) mmol/L Anion Gap 5.0 (3-11) BUN 12 (7-18) mg/dl Creatinine 0.77 (0.6-1.2) mg/dl Est Cr Clr Drug Dosing Not Reportable Est GFR ( Amer) 82.2 ml/min Est GFR (Non-Af Amer) 70.9 ml/min BUN/Creatinine Ratio 15.7 (10-20) Glucose 99 (70-99) mg/dl Lactate (0.4-2.0) mmol/L Calcium 9.4 (8.5-10.1) mg/dl Magnesium 2.1 (1.8-2.4) mg/dl Total Bilirubin 1.2 H (0.2-1) mg/dl AST 25 (15-37) U/L ALT 28 (12-78) U/L Alkaline Phosphatase 110 (45-117) U/L Troponin I < 0.015 (0-0.045) ng/ml NT-Pro-B Natriuret Pep 4833 H (0-1800) pg/ml Total Protein 8.0 (6.4-8.2) gm/dl Albumin 3.8 (3.4-5.0) gm/dl Globulin 4.2 H (2.5-4.0) gm/dl Albumin/Globulin Ratio 0.9 (0.9-2) TSH 0.955 (0.300-4.500) uIu/ml Urine Color Urine Appearance (Clear) Urine pH (4.5-7.5) Ur Specific [place] (1.000-1.030) Urine Protein (Negative) Urine Glucose (UA) (Negative) Urine Ketones (Negative) Urine Blood (Negative) Urine Nitrite (Negative) Urine Bilirubin (Negative) Urine Urobilinogen (Negative) Ur Leukocyte Esterase (Negative) Urine WBC (Auto) (0-5) /hpf Urine RBC (Auto) (0-4) /hpf U Hyaline Cast (Auto) (0-5) /lpf U Epithel Cells (Auto) (0-5) /lpf Urine Bacteria (Auto) (Negative) Urine Crystals Calcium Oxalate Crystal (None Prsent) Urine Yeast COVID-19 Eval Order SARS-CoV-2 (PCR) (Negative) Medications Administered Current Inpatient Medications Acetaminophen (Acetaminophen 325 Mg Tab) 650 mg PO Q4 PRN PRN Reason: Pain, Mild Stop: 02/03/21 00:11 Aspirin ([facility]in 81 Mg E[facility]ab) [facility] [place]: 02/03/21 08:59 Last Admin: 01/04/21 08:38 Dose: 81 mg Documented by: Atorvastatin Calcium (Atorvastatin 40 Mg Tab) 40 mg PO HS [facility] Stop: 02/03/21 20:59 Cyanocobalamin (Cyanocobalamin 500 Mcg Tablet (Vitamin B-12)) 2,[facility] Stop: 02/03/21 08:59 Last Admin: 01/04/21 08:38 Dose: 2,000 mcg Documented by: Enoxaparin Sodium (Enoxaparin Inj 30 Mg/0.3 Ml Syr) 30 mg SQ QAM [facility] Stop: 02/03/21 08:59 Last Admin: 01/04/21 08:38 Dose: 30 mg Documented by: Ferrous Sulfate (Ferrous Sulfate 325 Mg Tab) 325 mg PO Q2D [facility] Stop: 02/03/21 08:59 Last Admin: 01/04/21 08:38 Dose: 325 mg Documented by: Promethazine HCl 12.5 mg/ (Sodium Chloride) 50.5 mls @ 202 mls/hr IV Q6H PRN PRN Reason: Nausea And Vomiting Stop: 02/03/21 00:11 Furosemide 40 mg/ Syringe 4 mls @ 4 mls/min IV [id number] [facility] Stop: 01/04/21 17:00 Last Admin: 01/04/21 08:38 Dose: 4 mls/min Documented by: Levothyroxine Sodium (Levothyroxine Sodium 100 Mcg Tablet) 100 mcg PO DAILYBB DONNA Stop: 02/03/21 06:29 Last Admin: 01/04/21 05:40 Dose: 100 mcg Documented by: Losartan Potassium (Losartan Potassium 50 Mg Tab) 50 mg PO HS DONNA Stop: 02/03/21 00:59 Last Admin: 01/04/21 01:09 Dose: 50 mg Documented by: Metoprolol Succinate (Metoprolol Succ 25mg Ext Rel Tab) 75 mg PO QAM DONNA Stop: 02/03/21 08:59 Last Admin: 01/04/21 08:39 Dose: 75 mg Documented by: Nitroglycerin (Nitroglycerin Sl 0.4 Mg/Tab Tab) 0.4 mg SL UD PRN PRN Reason: Chest Pain Stop: 02/03/21 00:11 Potassium Chloride (Potassium Chloride Crtab 20 Meq Tabcr) 20 meq PO BID DONNA Stop: 02/03/21 08:59 Last Admin: 01/04/21 08:39 Dose: 20 meq Documented by: Tramadol HCl (Tramadol Hcl 50 Mg Tablet) 25 mg PO Q4H PRN PRN Reason: Pain Stop: 02/03/21 00:11
--- NOTE | 2021-01-04 13:32 | Communication Note ---
Date of Service: January 04, 2021 chart reviewed. Patient with no formal psych hx/prior contact with consult service admit medically. Reported beliefs that is cheating with a health aide related to her dementia. Screen negative for depression by liaison, no SI. the belief is not causing agitation/aggressive outbursts. Liaison reviewed with Dr. Cerrato who stated formal consult could be cancelled, will reconsult service if additional concerns arise. Note that atypical antipsychotics are generally not used for delusions related to major cognitive disorder unless they are causing i rritable/aggressive outbursts given black box warnings on antidepressants.
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
[2021-01-04] MEDS: ATORVASTATIN 40 MG TAB PO SCH (19:44)
[2021-01-05] MEDS: LEVOTHYROXINE SODIUM 100 MCG TABLET PO SCH (05:52)
[2021-01-05 06:19] LABS: Hematocrit (blood only) 47.4 % (37-47); Hemoglobin 15.6 g/dL (12.0-16.0); Mean Corpuscular Hemoglobin 29.1 pg (25-34); Mean Corpuscular Hgb Conc 32.9 g/dL (32-36); Mean Corpuscular Volume 88.3 fL (80-100); Mean Platelet Volume 10.9 fL (7.4-10.4); Platelet Count 174 K/uL (130-400); RDW Coefficient of Variation 20.6 % (11.5-14.5); RDW Standard Deviation 66.3 fL (36.4-46.3); Red Blood Count 5.37 M/uL (4.2-5.4); White Blood Count 6.94 K/uL (4.8-10.8)
[2021-01-05 07:11] LABS: BUN Creatinine Ratio 22.3 (10-20); Calcium 9.2 mg/dl (8.5-10.1); Creatinine Clr Calc Pharmacy 40.6 ml/min; Est GFR (African American) 62.2 ml/min; Est GFR (Non-African American) 53.6 ml/min; Magnesium 2.1 mg/dl (1.8-2.4); Phosphorus 3.7 mg/dl (2.5-4.9)
--- NOTE | 2021-01-05 07:14 | Hospitalist Progress Note ---
Date of Service January 05, 2021 Assessment & Plan (1) Decompensated heart failure: Plan: Possibly from uncontrolled BP hx sick sinus syndrome status post PPM off Coumadin secondary to traumatic intracranial hemorrhage, Diuretic Rx Strict I/Os, daily weights, CHF education TTE, Cardiology consult Re: Decompensated CHF Titrate home BP meds, increase Losartan dose for now Echo LV is normal in size. Moderate concentric LVH. Apical wall motion abnormality may reflect pacemaker activation. No regional wall motion abnormalities noted. EF 60 to 65%. There is biatrial enlargement. Aortic valve sclerosis moderate, without significant aortic valvular stenosis. Trace aortic regurg. There is moderate mitral regurg. There is mild to moderate tricuspid regurg. RV systolic pressure is elevated at 30 to 40 mmHg. Moderate sized left pleural effusion. Repeat CXR to eval left pleural effusion this a.m. - left pleural effusion improved Pulmonary consultation for left pleural effusion - recommend to continue diuresis Hypothyroidism, euthyroid as of current TSH Prediabetes, hemoglobin A1c of 5.8 2020 Post laxative diarrhea rule out C. difficile C. diff negative Episodic left hip pain rule out bony pathology Plain x-ray left hip IMPRESSION: Osteopenia and degenerative change as above with no acute bony abnormality identified. DVT prophylaxis. Lovenox subcu Full code Admission and Anticipated Discharge Date Admission Date: January 03, 2021 Subjective Patient seen in follow-up of acute heart failure with preserved ejection fraction, pleural effusions Patient is currently sitting up in a chair, in no acute distress, breathing comfortably on room air She is speaking in full sentences without any difficulty Somewhat distressed, about her , talked to psychiatry liaison nurse yesterday Currently denies any chest pain, shortness of breath abdominal pain, nausea or vomiting Tried to update patient's daughter yesterday, however I was only able to leave a message on her phone. Review of Systems Review of Systems: All systems reviewed & are unremarkable except as noted in Subjective Physical Exam Physical Exam: GENERAL: Elderly female,in no respiratory distress , conversing easily on room air SKIN: Normal color, warm HEENT: NC/AT, [place] palpebral conjunctivae, no ptosis, dry buccal mucosa NECK : Supple, no tenderness CHEST : Decreased breath sounds, bibasilar crackles, no tenderness HEART : Irregular rhythm, apical systolic murmur ABDOMEN: mild distention, nontender EXTREMITIES : 1+ b/l LE edema, no LE tenderness NEUROLOGIC : Alert awake, answering questions appropriately, no facial asymmetry, mild hearing impairment, moving extremities spontaneously and without difficulty Results & Data Results & Data ([place]) Vital Signs (Past 12 Hours) Vital Signs Temp Pulse Resp BP BP Pulse Ox 01/05/21 06:52 36.5 C 83 19 161/102 H 92 01/05/21 04:38 155/114 H 01/05/21 04:02 36.4 C L 95 H 20 144/107 H 96 01/04/21 23:24 36.6 C 94 H 16 122/82 95 Laboratory Results 01/05/21 01/05/21 01/04/21 Range/Units 05:52 05:52 19:45 WBC 6.94 (4.8-10.8) K/uL RBC 5.37 (4.2-5.4) M/uL Hgb 15.6 (12.0-16.0) g/dL Hct 47.4 H (37-47) % MCV 88.3 (80-100) fL MCH 29.1 (25-34) pg MCHC 32.9 (32-36) g/dL RDW Std Deviation 66.3 H (36.4-46.3) fL RDW Coeff of Del 20.6 H (11.5-14.5) % Plt Count 174 (130-400) K/uL MPV 10.9 H (7.4-10.4) fL Sodium 134 L (136-145) mmol/L Potassium 4.0 (3.5-5.1) mmol/L Chloride 100 (98-107) mmol/L Carbon Dioxide 28 (21-32) mmol/L Anion Gap 6.0 (3-11) BUN 22 H D (7-18) mg/dl Creatinine 0.97 (0.6-1.2) mg/dl Est Cr Clr Drug Dosing 40.6 ml/min Est GFR ( Amer) 62.2 ml/min Est GFR (Non-Af Amer) 53.6 ml/min BUN/Creatinine Ratio 22.3 H (10-20) Glucose 87 (70-99) mg/dl Calcium 9.2 (8.5-10.1) mg/dl Phosphorus 3.7 (2.5-4.9) mg/dl Magnesium 2.1 (1.8-2.4) mg/dl Stl C. diff Tox B Gene Negative Cdiff Gene (Neg) Medications Administered Current Inpatient Medications Acetaminophen (Acetaminophen 325 Mg Tab) 650 mg PO Q4 PRN PRN Reason: Pain, Mild Stop: 02/03/21 00:11 Aspirin (Aspirin 81 Mg Ectab) [facility] [place] Stop: 02/03/21 08:59 Last Admin: 01/04/21 08:38 Dose: 81 mg Documented by: Atorvastatin Calcium (Atorvastatin 40 Mg Tab) 40 mg PO [facility] Stop: 02/03/21 20:59 Last Admin: 01/04/21 19:44 Dose: 40 mg Documented by: Cyanocobalamin (Cyanocobalamin 500 Mcg Tablet (Vitamin B-12)) 2,000 mcg PO [facility] Stop: 02/03/21 08:59 Last Admin: 01/04/21 08:38 Dose: 2,000 mcg Documented by: Enoxaparin Sodium (Enoxaparin Inj 30 Mg/0.3 Ml Syr) 30 [facility] [place] Stop: 02/03/21 08:59 Last Admin: 01/04/21 08:38 Dose: 30 mg Documented by: Ferrous Sulfate (Ferrous Sulfate 325 Mg Tab) 325 mg PO Q2D [facility] Stop: 02/03/21 08:59 Last Admin: 01/04/21 08:38 Dose: 325 mg Documented by: Promethazine HCl 12.5 mg/ (Sodium Chloride) 50.5 mls @ 202 mls/hr IV Q6H PRN PRN Reason: Nausea And Vomiting Stop: 02/03/21 00:11 Furosemide 40 mg/ Syringe 4 mls @ 4 mls/min IV [id number] [facility] Stop: 02/04/21 08:59 Levothyroxine Sodium (Levothyroxine Sodium 100 Mcg Tablet) [facility] Stop: 02/03/21 06:29 Last Admin: 01/05/21 05:52 Dose: 100 mcg Documented by: Losartan Potassium (Losartan Potassium 50 Mg Tab) 50 mg PO [facility] Stop: 02/03/21 00:59 Last Admin: 01/04/21 19:43 Dose: 50 mg Documented by: Metoprolol Succinate (Metoprolol Succ 25mg Ext Rel Tab) 75 [facility] [place] Stop: 02/03/21 08:59 Last Admin: 01/04/21 08:39 Dose: 75 mg Documented by: Nitroglycerin (Nitroglycerin Sl 0.4 Mg/Tab Tab) 0.4 mg SL UD PRN PRN Reason: Chest Pain Stop: 02/03/21 00:11 Potassium Chloride (Potassium Chloride Crtab 20 Meq Tabcr) 20 meq PO BID [facility] Stop: 02/03/21 08:59 Last Admin: 01/04/21 19:44 Dose: 20 meq Documented by: Tramadol HCl (Tramadol Hcl 50 Mg Tablet) 25 mg PO Q4H PRN PRN Reason: Pain Stop: 02/03/21 00:11
--- NOTE | 2021-01-05 07:59 | XRay Report ---
SINGLE VIEW CHEST CLINICAL HISTORY: Pleural effusion. FINDINGS: An AP, portable, upright chest radiograph is compared to study dated 01/03/2021. The examinat ion is degraded by portable technique and patient rotation. A 2-lead cardiac pacemaker is unchanged i n position. The heart is enlarged noting atherosclerotic calcification of the thoracic aorta. The pul monary vasculature is noncongested. Chronic interstitial thickening is similar to previous. There are left larger than right pleural effusions with bibasilar consolidation. No pneumothorax is seen. The skeletal structures are osteopenic. The bony thorax is grossly intact. IMPRESSION: 1. Cardiomegaly and cardiac pacemaker with no radiographic evidence of congestive failure. 2. Left larger than right pleural effusions with associated bibasilar consolidation. The left pleural effusion appears decreased in size as compared 01/03/2021. ACT 112: Negative or not required by law. Electronically signed by: Edgar Wen M.D. 01/05/2021 7:57 AM
[2021-01-05] MEDS: METOPROLOL SUCC 25MG EXT REL TAB PO SCH (08:09)
[2021-01-05] MEDS: CYANOCOBALAMIN 500 MCG TABLET (VITAMIN B-12) PO SCH (08:09)
[2021-01-05] MEDS: POTASSIUM CHLORIDE CRTAB 20 MEQ TABCR PO SCH ×2 (08:09→20:51)
[2021-01-05] MEDS: ASPIRIN 81 MG ECTAB PO SCH (08:09)
[2021-01-05] MEDS: FUROSEMIDE 40 MG in SYRINGE 0 ML IV SCH ×2 (08:10→17:47)
[2021-01-05] MEDS: cephALEXin 500 MG CAP PO SCH ×2 (12:00→20:50)
--- NOTE | 2021-01-05 12:06 | Pulmonary Consultation ---
Date of Consultation January 05, 2021 Assessment & Plan (1) SOB (shortness of breath): (2) Pleural effusion: (3) Acute heart failure with preserved ejection fraction (HFpEF): --Left-sided pleural effusion Etiology is likely cardiac from HFpEF Patient is making good amount of urine Continue with diuretics --Shortness of breath From pulmonary edema as well as pleural effusion Continue with diuretics O2 supplementation to keep O2 saturation greater than 90% BiPAP nightly and as needed shortness Plan: Chest x-ray from today still shows left-sided pleural effusion but it has improved compared to the one on 01/03/2021 I would recommend continuing with diuresis Bedside ultrasound does show small to moderate amount of left-sided pleural effusion I called patient's daughter who is the decision-maker for the patient. I explained the patient does have fluid on the left side and it seems to be going down on comparing the chest x-ray and clinically she is feeling better not on any oxygen and not in any respiratory stress I and patient daughter both feel that it would be better to continue with diuretics. If the patient in future develops shortness of breath or if the pleural effusion gets worse then thoracentesis will be thought of. Pulmonary will continue to follow Case was discussed with Dr. Cerrato Please note the above document was generated using voice recognition software. It may contain grammatical, syntax or spelling errors.Any formal questions or concerns about the content, text or information contained within the body of this dictation should be directly addressed to the provider for clarification. History of Present Illness Attending Physician: Chente Cerrato MD History of Present Illness 85-year-old female with past medical history of A. fib with tachybradycardia syndrome, s/p dual-chamber pacemaker,, hypertension and diastolic heart failure presented to hospital with complaints of shortness of breath which has been going on since a week or so. Please make note patient is a poor historian. History was obtained from previous chart Patient had a chest x-ray done which showed bilateral pleural effusion more on the left side. Pulmonary were consulted for the same At the time of examination patient was saturating 96-97% on room air. She stated that she is feeling better compared to when she came to the hospital. Denied any chest pain, no dizziness, no nausea, no vomiting. Has been urinating well. Denies any fever or chills. No headache, no blurry vision. Social history: Non-smoker, no illicit drug use, no alcohol use. Allergies Allergy/AdvReac Type Severity Reaction Status Date / Time mirtazapine Allergy Unknown Rash Verified 01/03/21 17:52 lisinopril AdvReac Unknown Cough Verified 01/03/21 17:52 Home Medications Medication Instructions Recorded Confirmed Type levothyroxine 100 mcg tablet 100 mcg PO QAM 05/11/19 01/03/21 History magnesium oxide 400 mg (241.3 mg 400 mg PO QAM 05/11/19 01/03/21 History magnesium) tablet (MagOx) sennosides 8.6 mg-docusate sodium 1 tab PO BID 05/11/19 01/03/21 History 50 mg tablet (Senna Plus) atorvastatin 40 mg tablet 40 mg PO HS 02/05/20 01/03/21 History calcium carbonate 500 mg (1,250 1 tab PO Q12H 02/05/20 01/03/21 History mg)-vitamin D3 400 unit tablet (Calcium 500 + D) losartan 25 mg tablet 25 mg PO HS 02/05/20 01/03/21 History metoprolol succinate 25 mg 75 mg PO QAM 02/05/20 01/03/21 History tablet,extended release 24 hr polyethylene glycol 3350 17 17 g PO QAM 02/05/20 01/03/21 History gram/dose oral powder mupirocin 2 % topical ointment 1 applic TOPICAL HS 03/06/20 01/03/21 History lidocaine HCl 4 % topical cream 1 applic TOPICAL HS PRN 05/18/20 01/03/21 History (Aspercreme (lidocaine HCl)) nystatin 100,000 unit/gram topical 1 applic TOPICAL BID PRN 05/18/20 01/03/21 History cream tramadol 50 mg tablet 50 mg PO BID PRN 05/18/20 01/03/21 History aspirin 81 mg tablet,delayed 81 mg PO QAM 07/21/20 01/03/21 History release cyanocobalamin (vitamin B-12) 2,000 mcg PO QAM 07/21/20 01/03/21 History 1,000 mcg tablet (Vitamin B-12) acetaminophen 325 mg tablet 650 mg PO Q4 PRN MDD 3g 01/03/21 01/03/21 History acetaminophen 325 mg tablet 650 mg PO Q4 PRN MDD 3g 01/03/21 01/03/21 History ferrous sulfate 325 mg (65 mg 325 mg PO Q OTHER DAY 01/03/21 01/03/21 History iron) tablet oxymetazoline 0.05 % nasal spray 2 spray INTRANASAL UD PRN 01/03/21 01/03/21 His tory (Afrin (oxymetazoline)) Patient History Medical History (Updated 01/04/21 @ 15:42 by Mark Brown MD) Anxiety Atrial fibrillation No AC secondary to history of bleeding issues (traumatic brain hemorrhage/intra- abdominal hemorrhage) Chronic hyponatremia Constipation COVID-19 Fracture of neck of scapula HTN (hypertension) Hyperlipidemia Hypomagnesemia Hypothyroidism Osteoarthritis Sick sinus syndrome S/p pacemaker TIA (transient ischemic attack) Possible in December 08, 2019 TIA 05/2019 per records. Last seen by neuro= 01/08/20- follow up PRN. Continue ASA. Surgical History H/O colonoscopy History of pacemaker Family History Other Cancer Social History Smoking Status: Never smoker Hx Alcohol Use: No Hx Substance Use: No Preferred Language: Latvian Communication Ability: Effective Hydrometer Calibrator Required: No Beliefs That Will Affect Care: None marital status: Current Living Situation: Spouse and Personal Care Facility Current Living Situation Comment: [employer] current occupational status: retired Feels Safe at Home: Yes Safety Concerns: Feels Safe At This Time Assistive Devices: None Review of Systems Review of Systems: All systems reviewed & are unremarkable except as noted in HPI & below Physical Exam Physical Exam: Constitutional: No acute distress HEENT: EOMI, PERRLA Respiratory system: Decreased air entry bilaterally, more decreased on the left side, no wheeze, no rhonchi, positive crackles bilaterally CVS: S1-S2 positive, positive 2 out of 6 systolic murmur appreciated best at the aorta Abdomen: Soft, nontender, nondistended, positive bowel sounds x4 Extremities: +2 pulses bilaterally radialis/ dorsalis pedis, no cyanosis, no edema Neuro: Awake alert oriented x3 Psych: Normal mood and affect G/U: No Choudhary Skin: no rashes, warm and dry Lymphatic: no cervical or axillary lymphadenopathy Results & Data Results & Data ([facility]) Vital Signs (Past 12 Hours) Vital Signs Temp Pulse Pulse Pulse Resp BP BP 01/05/21 11:22 36.5 C 82 18 114/62 01/05/21 08:00 80 01/05/21 06:52 36.5 C 83 19 161/102 H 01/05/21 04:38 155/114 H 01/05/21 04:02 36.4 C L 95 H 20 144/107 H Pulse Ox 01/05/21 11:22 95 01/05/21 08:00 01/05/21 06:52 92 01/05/21 04:38 01/05/21 04:02 96 01/05/21 05:52 01/05/21 05:52 PG Care Time/CCT Total # of Minutes Spent Total Time Spent with Patient: Total time spent is greater than 50% in coordination of care (as documented) at patient's floor/unit and/or counseling patient: Coding Level of Care Code 38506 Initial Inpt Care Lvl 3 Diagnoses SOB (shortness of breath) R06.02 Pleural effusion J90 Acute heart failure with preserved ejection fraction (HFpEF) I50.31
--- NOTE | 2021-01-05 13:02 | Cardiology Progress Note ---
Date of Service January 05, 2021 Assessment & Plan (1) Acute heart failure with preserved ejection fraction (HFpEF): (2) Pleural effusion: (3) Chronic kidney disease, stage 3a: (4) Hypertension: (5) Atrial fibrillation with RVR: (6) History of pacemaker: Plan: Patient is an 85-year-old female with a history of longstanding hypertension hypertensive heart disease and persistent atrial fibrillation who presents with signs and symptoms of pulmonary edema possibly exacerbated by hypertensive urgency. Large left pleural effusion is present. On initial presentation she was tachycardic in atrial fibrillation likely in response to acute respiratory distress. Patient clinically improving with good diuresis symptomatically improved. Blood pressure trending towards better control. Agree with increase losartan dosing We will follow patient Admission and Anticipated Discharge Date Admission Date: January 03, 2021 Subjective Patient was seen and examined, chart, medications, telemetry reviewed. Patient more comfortable today less dyspneic. Chronic atrial fibrillation with intermittent pacing on telemetry no arrhythmias Physical Exam Constitutional: + thin (, Elderly female); no acute distress Eyes: PERRL, conjunctivae normal, anicteric sclerae ENMT: external ear and nose normal, oropharynx normal Neck: trachea midline, no thyromegaly Respiratory: Auscultation: + diminished lung sounds (Left base improved crackles) Cardiovascular: Rate/Rhythm: + irregularly irregular Heart Sounds: normal S1, normal S2 and + murmur (Grade 1/6 systolic murmur at the apex.); no gallop Palpation: normal PMI Vessels: normal carotid upstroke and radial pulses present; no JVD and no carotid bruit Extremities: + edema (2+) Gastrointestinal (Abdomen): Inspection/Auscultation: + abdomen distended (Mild) Musculoskeletal: no cyanosis or clubbing, extremities motor strength 5/5 Skin: no rashes, warm and dry Neurologic: PERRL, EOMI, accommodation nl, no face palsy, no dysarthria Psychiatric: Orientation: alert and oriented x 3 Results & Data ([facility]) Vital Signs (Past 12 Hours) Vital Signs Temp Pulse Pulse Pulse Resp BP BP 01/05/21 11:22 36.5 C 82 18 114/62 01/05/21 08:00 80 01/05/21 06:52 36.5 C 83 19 161/102 H 01/05/21 04:38 155/114 H 01/05/21 04:02 36.4 C L 95 H 20 144/107 H Pulse Ox 01/05/21 11:22 95 01/05/21 08:00 01/05/21 06:52 92 01/05/21 04:38 01/05/21 04:02 96 Laboratory Results Laboratory Results - last 24 hr 01/04/21 01/05/21 01/05/21 19:45 05:52 05:52 WBC 6.94 RBC 5.37 Hgb 15.6 Hct 47.4 H MCV 88.3 MCH 29.1 MCHC 32.9 RDW Std Deviation 66.3 H RDW Coeff of Del 20.6 H Plt Count 174 MPV 10.9 H Sodium 134 L Potassium 4.0 Chloride 100 Carbon Dioxide 28 Anion Gap 6.0 BUN 22 H D Creatinine 0.97 Est Cr Clr Drug Dosing 40.6 Est GFR ( Amer) 62.2 Est GFR (Non-Af Amer) 53.6 BUN/Creatinine Ratio 22.3 H Glucose 87 Calcium 9.2 Phosphorus 3.7 Magnesium 2.1 Stl C. diff Tox B Gene Negative Cdiff Gene (1) Hypertension Hypertension type: unspecified Qualified Code(s): I10 - Essential (primary) hypertension
[2021-01-05] MEDS: ATORVASTATIN 40 MG TAB PO SCH (20:50)
[2021-01-05] MEDS: LOSARTAN POTASSIUM 50 MG TAB PO SCH (20:51)
[2021-01-06] MEDS: LEVOTHYROXINE SODIUM 100 MCG TABLET PO SCH (05:48)
--- NOTE | 2021-01-06 06:17 | Electrocardiogram Report ---
Test Reason : Blood Pressure : / mmHG Vent. Rate : 094 BPM Atrial Rate : 468 BPM P-R Int : 000 ms QRS Dur : 072 ms QT Int : 376 ms P-R-T Axes : 000 -27 025 degrees QTc Int : 470 ms Atrial fibrillation with occasional ventricular-paced complexes Septal infarct , age undetermined Abnormal ECG When compared with ECG of 24-JUL-2020 09:32, Ventricular paced complexes are now present Confirmed by Edward Horton ([id number]) on 01/06/2021 6:17:25 AM Referred By: [facility] of Confirmed By:Edward Horton
[2021-01-06 06:32] LABS: Hematocrit (blood only) 45.1 % (37-47); Hemoglobin 14.8 g/dL (12.0-16.0); Mean Corpuscular Hemoglobin 28.8 pg (25-34); Mean Corpuscular Hgb Conc 32.8 g/dL (32-36); Mean Corpuscular Volume 87.9 fL (80-100); Platelet Count 189 K/uL (130-400); RDW Coefficient of Variation 20.5 % (11.5-14.5); RDW Standard Deviation 65.8 fL (36.4-46.3); Red Blood Count 5.13 M/uL (4.2-5.4); White Blood Count 6.44 K/uL (4.8-10.8)
[2021-01-06 06:50] LABS: BUN Creatinine Ratio 28.1 (10-20); Calcium 8.8 mg/dl (8.5-10.1); Creatinine Clr Calc Pharmacy 52.1 ml/min; Est GFR (African American) 86.2 ml/min; Est GFR (Non-African American) 74.4 ml/min; Magnesium 2.1 mg/dl (1.8-2.4); Potassium 4.5 mmol/L (3.5-5.1)
[2021-01-06] MEDS: CYANOCOBALAMIN 500 MCG TABLET (VITAMIN B-12) PO SCH (08:09)
[2021-01-06] MEDS: ASPIRIN 81 MG ECTAB PO SCH (08:09)
[2021-01-06] MEDS: FERROUS SULFATE 325 MG TAB PO SCH (08:09)
[2021-01-06] MEDS: METOPROLOL SUCC 25MG EXT REL TAB PO SCH (08:09)
[2021-01-06] MEDS: cephALEXin 500 MG CAP PO SCH ×2 (08:09→21:02)
[2021-01-06] MEDS: FUROSEMIDE 40 MG in SYRINGE 0 ML IV SCH ×2 (08:09→16:52)
[2021-01-06] MEDS: POTASSIUM CHLORIDE CRTAB 20 MEQ TABCR PO SCH ×2 (08:09→21:02)
--- NOTE | 2021-01-06 10:27 | Cardiology Progress Note ---
Date of Service January 06, 2021 Assessment & Plan (1) Acute heart failure with preserved ejection fraction (HFpEF): (2) Pleural effusion: (3) Chronic kidney disease, stage 3a: (4) Hypertension: (5) Atrial fibrillation with RVR: (6) History of pacemaker: Plan: Demented 85-year-old female with history of history of longstanding hypertension, hypertensive heart disease, persistent atrial fibrillation. Patient admitted with signs and symptoms of acute decompensated heart failure with preserved LV systolic function with associated large left pleural effusion. Presentation possibly exacerbated by hypertensive urgency. Patient appears to be clinically improving, diuresing, symptomatically improved, and with improvement in the pleural effusion via chest x-ray. Continue IV diuresis at least another day. Recommend titration of Toprol-XL from 75 mg/day to 100 mg/day for additional heart rate as well as blood pressure control. We will continue to follow. Admission and Anticipated Discharge Date Admission Date: January 03, 2021 Supervising Physician Co-Signing Physician Notes Patient was seen and examined, chart, medications, telemetry reviewed. Patient appears to be clinically improving from volume status with good diuresis. Dementia worse today, less oriented Plan as outlined IV diuretics additional day then discontinue Subjective Patient seen and examined. Chart, medications, and telemetry reviewed. Patient notably hard of hearing. She is not a reliable source of information (dementia) No reported chest pain, palpitations, or dyspnea. Telemetry: Atrial fibrillation ranging from the 60s to 100, with occasional pacing. Input/output: -2406 mL overall. Weight: 62 kg-> 58.3 kg Review of Systems Review of Systems: A complete and accurate review of systems was unable to be obtained due to the patient's dementia Physical Exam Physical Exam: Examined in the bedside chair General: Alert to person. No acute distress. Hard of hearing. HENT: Normocephalic. Atraumatic. Eyes: PER. Conjunctiva pink, sclera clear. Neck: No overt JVD Heart: Irregularly irregular in the 80s soft systolic murmur. Lungs: Decreased. Diminished. Absent breath sounds one third of the way up on the left. No Rales. No wheeze. Abdomen: +BS. Soft. Nontender. No masses or organomegaly. Extremities: No clubbing, cyanosis, or edema. Pulses: Posterior tibial=1/4. Results & Data ([facility]) Vital Signs (Past 12 Hours) Vital Signs Temp Pulse Pulse Resp BP Pulse Ox 01/06/21 07:07 36.4 C L 87 19 159/99 H 95 01/06/21 03:35 36.5 C 72 16 153/89 H 92 01/05/21 23:09 36.9 C 76 20 134/73 94 01/05/21 22:58 91 H Laboratory Results Laboratory Results - last 24 hr 01/06/21 01/06/21 05:18 05:18 WBC 6.44 RBC 5.13 Hgb 14.8 Hct 45.1 MCV 87.9 MCH 28.8 MCHC 32.8 RDW Std Deviation 65.8 H RDW Coeff of Del 20.5 H Plt Count 189 MPV 11.0 H Sodium 134 L Potassium 4.5 Chloride 102 Carbon Dioxide 27 Anion Gap 5.0 BUN 21 H Creatinine 0.74 Est Cr Clr Drug Dosing 52.1 Est GFR ( Amer) 86.2 Est GFR (Non-Af Amer) 74.4 BUN/Creatinine Ratio 28.1 H Glucose 79 Calcium 8.8 Magnesium 2.1 (1) Hypertension Hypertension type: unspecified Qualified Code(s): I10 - Essential (primary) hypertension
--- NOTE | 2021-01-06 11:23 | Pulmonology Progress Note ---
Date of Service January 06, 2021 Assessment & Plan (1) SOB (shortness of breath): (2) Pleural effusion: (3) Acute heart failure with preserved ejection fraction (HFpEF): Plan: --Left-sided pleural effusion Etiology is likely cardiac from HFpEF Patient is making good amount of urine Continue with diuretics Bedside ultrasound 01/05/2021: Small-moderate left-sided pleural effusion with atelectasis --Shortness of breath From pulmonary edema as well as pleural effusion Continue with diuretics O2 supplementation to keep O2 saturation greater than 90% BiPAP nightly and as needed shortness Plan: Continue with diuretics, keep the patient negative balance No plan for thoracentesis Incentive spirometry will be beneficial for the patient. Case discussed with cardiology. No further recommendation from pulmonary perspective. Call directly with any questions Please note the above document was generated using voice recognition software. It may contain grammatical, syntax or spelling errors.Any formal questions or concerns about the content, text or information contained within the body of this dictation should be directly addressed to the provider for clarification. Admission and Anticipated Discharge Date Admission Date: January 03, 2021 Subjective Patient seen and examined at bedside. No acute distress, no adverse events overnight. Patient is saturating 96-97% on room air. Denies any chest pain States that the shortness of breath is improved. No cough. No headache, no dizziness. Fair appetite. Review of Systems Review of Systems: All systems reviewed & are unremarkable except as noted in Subjective Physical Exam Physical Exam: Constitutional: No acute distress HEENT: EOMI, PERRLA Respiratory system: Decreased air entry bilaterally, more decreased on the left side, no wheeze, no rhonchi, positive crackles bilaterally CVS: S1-S2 positive, positive 2 out of 6 systolic murmur appreciated best at the aorta Abdomen: Soft, nontender, nondistended, positive bowel sounds x4 Extremities: +2 pulses bilaterally radialis/ dorsalis pedis, no cyanosis, no edema Neuro: Awake alert oriented x3 Psych: Normal mood and affect G/U: No Choudhary Skin: no rashes, warm and dry Lymphatic: no cervical or axillary lymphadenopathy Results & Data Results & Data ([facility]) Vital Signs (Past 12 Hours) Vital Signs Temp Pulse Resp BP Pulse Ox 01/06/21 10:58 36.7 C 53 L 18 121/65 97 01/06/21 07:07 36.4 C L 87 19 159/99 H 95 01/06/21 03:35 36.5 C 72 16 153/89 H 92 01/06/21 05:18 01/06/21 05:18 PG Care Time/CCT Total # of Minutes Spent Total Time Spent with Patient: Total time spent is greater than 50% in coordination of care (as documented) at patient's floor/unit and/or counseling patient: Coding Level of Care Code 78120 Subseq Hosp Care Lvl 2 Diagnoses SOB (shortness of breath) R06.02 Pleural effusion J90 Acute heart failure with preserved ejection fraction (HFpEF) I50.31
--- NOTE | 2021-01-06 11:27 | Procedure Note ---
Procedure Note Date of Service January 05, 2021 Note Bedside Ultrasound: Right lung: B-lines appreciated posteriorly, minimal right-sided pleural effusion Left lung: B-lines appreciated anteriorly and posteriorly, atelectasis of the left lower lobe, small to moderate size left-sided pleural effusion Please note the above document was generated using voice recognition software. It may contain grammatical, syntax or spelling errors.Any formal questions or concerns about the content, text or information contained within the body of this dictation should be directly addressed to the provider for clarification. Coding CPT Codes Pulmonary/Thoracic - Pulmonary and Thoracic: 39744 US, Chest, real time with imaging documentation ([id number]) [facility] [place] Procedure Codes (Charges) Pulmonary/Thoracic Procedure 1: Pulmonary and Thoracic: 43697 US, Chest, real time with imaging documentation
--- NOTE | 2021-01-06 11:32 | Hospitalist Progress Note ---
Date of Service January 06, 2021 Assessment & Plan (1) Decompensated heart failure: Plan: Possibly from uncontrolled BP hx sick sinus syndrome status post PPM off Coumadin secondary to traumatic intracranial hemorrhage, Diuretic Rx Strict I/Os, daily weights, CHF education TTE, Cardiology consult Re: Decompensated CHF Titrate home BP meds, increase Losartan dose for now (50 mg from 25 mg at home) Cardiology also recommends to increase the metoprolol succinate from 75 mg to 100 mg daily. Echo LV is normal in size. Moderate concentric LVH. Apical wall motion abnormality may reflect pacemaker activation. No regional wall motion abnormalities noted. EF 60 to 65%. There is biatrial enlargement. Aortic valve sclerosis moderate, without significant aortic valvular stenosis. Trace aortic regurg. There is moderate mitral regurg. There is mild to moderate tricuspid regurg. RV systolic pressure is elevated at 30 to 40 mmHg. Moderate sized left pleural effusion. Repeat CXR to eval left pleural effusion this a.m. - left pleural effusion improved Pulmonary consultation for left pleural effusion - recommend to continue diuresis Hypothyroidism, euthyroid as of current TSH Prediabetes, hemoglobin A1c of 5.8 2019 Post laxative diarrhea rule out C. difficile C. diff negative Episodic left hip pain rule out bony pathology Plain x-ray left hip IMPRESSION: Osteopenia and degenerative change as above with no acute bony abnormality identified. DVT prophylaxis. Lovenox subcu Full code Admission and Anticipated Discharge Date Admission Date: January 03, 2021 Subjective Patient seen in follow-up of acute heart failure with preserved ejection fraction, pleural effusions Patient is currently laying in bed in no acute distress, breathing comfortably on room air She is speaking in full sentences without any difficulty Continues to be distressed about her 's behavior Currently denies any chest pain, shortness of breath abdominal pain, nausea or vomiting Review of Systems Review of Systems: All systems reviewed & are unremarkable except as noted in Subjective Physical Exam Physical Exam: GENERAL: Elderly female,in no respiratory distress , conversing easily on room air SKIN: Normal color, warm HEENT: NC/AT, [place] palpebral conjunctivae, no ptosis, dry buccal mucosa NECK : Supple, no tenderness CHEST : Decreased breath sounds, bibasilar crackles, no tenderness HEART : Irregular rhythm, apical systolic murmur ABDOMEN: mild distention, nontender EXTREMITIES : 1+ b/l LE edema, no LE tenderness NEUROLOGIC : Alert awake, answering questions appropriately, no facial asymmetry, mild hearing impairment, moving extremities spontaneously and without difficulty Results & Data Results & Data ([facility]) Vital Signs (Past 12 Hours) Vital Signs Temp Pulse Resp BP Pulse Ox 01/06/21 10:58 36.7 C 53 L 18 121/65 97 01/06/21 07:07 36.4 C L 87 19 159/99 H 95 01/06/21 03:35 36.5 C 72 16 153/89 H 92 Laboratory Results 01/06/21 01/06/21 Range/Units 05:18 05:18 WBC 6.44 (4.8-10.8) K/uL RBC 5.13 (4.2-5.4) M/uL Hgb 14.8 (12.0-16.0) g/dL Hct 45.1 (37-47) % MCV 87.9 (80-100) fL MCH 28.8 (25-34) pg MCHC 32.8 (32-36) g/dL RDW Std Deviation 65.8 H (36.4-46.3) fL RDW Coeff of Del 20.5 H (11.5-14.5) % Plt Count 189 (130-400) K/uL MPV 11.0 H (7.4-10.4) fL Sodium 134 L (136-145) mmol/L Potassium 4.5 (3.5-5.1) mmol/L Chloride 102 (98-107) mmol/L Carbon Dioxide 27 (21-32) mmol/L Anion Gap 5.0 (3-11) BUN 21 H (7-18) mg/dl Creatinine 0.74 (0.6-1.2) mg/dl Est Cr Clr Drug Dosing 52.1 ml/min Est GFR ( Amer) 86.2 ml/min Est GFR (Non-Af Amer) 74.4 ml/min BUN/Creatinine Ratio 28.1 H (10-20) Glucose 79 (70-99) mg/dl Calcium 8.8 (8.5-10.1) mg/dl Magnesium 2.1 (1.8-2.4) mg/dl Medications Administered Current Inpatient Medications Acetaminophen (Acetaminophen 325 Mg Tab) 650 mg PO Q4 PRN PRN Reason: Pain, Mild Stop: 02/03/21 00:11 Aspirin (Aspirin 81 Mg Ectab) 81 mg PO QAM [facility] Stop: 02/03/21 08:59 Last Admin: 01/06/21 08:09 Dose: 81 mg Documented by: Atorvastatin Calcium (Atorvastatin 40 Mg Tab) 40 mg PO HS [facility] Stop: 02/03/21 20:59 Last Admin: 01/05/21 20:50 Dose: 40 mg Documented by: Cephalexin HCl (Cephalexin 500 Mg Cap) 500 mg PO BID [facility] Stop: 01/10/21 10:29 Last Admin: 01/06/21 08:09 Dose: 500 mg Documented by: Cyanocobalamin (Cyanocobalamin 500 Mcg Tablet (Vitamin B-12)) 2,000 mcg PO [facility] Stop: 02/03/21 08:59 Last Admin: 01/06/21 08:09 Dose: 2,000 mcg Documented by: Enoxaparin Sodium (Enoxaparin Inj 30 Mg/0.3 Ml Syr) 30 mg SQ QAJIM [facility] [place] Stop: 02/03/21 08:59 Last Admin: 01/04/21 08:38 Dose: 30 mg Documented by: Ferrous Sulfate (Ferrous Sulfate 325 Mg Tab) 325 mg PO Q2D [facility] Stop: 02/03/21 08:59 Last Admin: 01/06/21 08:09 Dose: 325 mg Documented by: Promethazine HCl 12.5 mg/ (Sodium Chloride) 50.5 mls @ 202 mls/hr IV Q6H PRN PRN Reason: Nausea And Vomiting Stop: 02/03/21 00:11 Furosemide 40 mg/ Syringe 4 mls @ 4 mls/min IV [id number] [facility] Stop: 02/04/21 08:59 Last Admin: 01/06/21 08:09 Dose: 4 mls/min Documented by: Levothyroxine Sodium (Levothyroxine Sodium 100 Mcg Tablet) 100 mcg PO DAILYBB [facility] Stop: 02/03/21 06:29 Last Admin: 01/06/21 05:48 Dose: 100 mcg Documented by: Losartan Potassium (Losartan Potassium 50 Mg Tab) 50 mg PO HS [facility] Stop: 02/03/21 00:59 Last Admin: 01/05/21 20:51 Dose: 50 mg Documented by: Metoprolol Succinate (Metoprolol Succ 50mg Ext Rel Tab) 100 mg PO QAJIM [facility] [place] Stop: 02/06/21 08:59 Nitroglycerin (Nitroglycerin Sl 0.4 Mg/Tab Tab) 0.4 mg SL UD PRN PRN Reason: Chest Pain Stop: 02/03/21 00:11 Potassium Chloride (Potassium Chloride Crtab 20 Meq Tabcr) 20 meq PO BID [facility] Stop: 02/03/21 08:59 Last Admin: 01/06/21 08:09 Dose: 20 meq Documented by: Tramadol HCl (Tramadol Hcl 50 Mg Tablet) 25 mg PO Q4H PRN PRN Reason: Pain Stop: 02/03/21 00:11
--- NOTE | 2021-01-06 18:35 | Electrocardiogram Report ---
Test Reason : Blood Pressure : / mmHG Vent. Rate : 088 BPM Atrial Rate : 129 BPM P-R Int : 000 ms QRS Dur : 080 ms QT Int : 378 ms P-R-T Axes : 000 -28 -80 degrees QTc Int : 457 ms Poor data quality, interpretation may be adversely affected Atrial fibrillation Abnormal ECG When compared with ECG of 03-JAN-2021 17:33, Ventricular paced complexes are no longer present Confirmed by Edward Horton ([id number]) on 01/06/2021 6:34:38 PM Referred By: [facility] Confirmed By:Edward Horton
[2021-01-06] MEDS: ATORVASTATIN 40 MG TAB PO SCH (21:01)
[2021-01-06] MEDS: LOSARTAN POTASSIUM 50 MG TAB PO SCH (21:02)
[2021-01-07] MEDS: LEVOTHYROXINE SODIUM 100 MCG TABLET PO SCH (05:36)
[2021-01-07 06:42] LABS: Hemoglobin 15.4 g/dL (12.0-16.0); Mean Corpuscular Hemoglobin 29.1 pg (25-34); Mean Corpuscular Hgb Conc 32.8 g/dL (32-36); Mean Corpuscular Volume 88.7 fL (80-100); Mean Platelet Volume 11.1 fL (7.4-10.4); Platelet Count 191 K/uL (130-400); RDW Coefficient of Variation 20.5 % (11.5-14.5); RDW Standard Deviation 65.7 fL (36.4-46.3); White Blood Count 6.42 K/uL (4.8-10.8)
[2021-01-07 07:03] LABS: BUN Creatinine Ratio 26.6 (10-20); Calcium 8.8 mg/dl (8.5-10.1); Creatinine Clr Calc Pharmacy 46.8 ml/min; Est GFR (African American) 76.2 ml/min; Est GFR (Non-African American) 65.7 ml/min; Magnesium 2.4 mg/dl (1.8-2.4); Potassium 4.6 mmol/L (3.5-5.1)
--- NOTE | 2021-01-07 07:09 | Hospitalist Progress Note ---
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 Echo LV is normal in size. Moderate concentric LVH. Apical wall motion abnormality may reflect pacemaker activation. No regional wall motion abnormalities noted. EF 60 to 65%. There is biatrial enlargement. Aortic valve sclerosis moderate, without significant aortic valvular stenosis. Trace aortic regurg. There is moderate mitral regurg. There is mild to moderate tricuspid regurg. RV systolic pressure is elevated at 30 to 40 mmHg. Moderate sized left pleural effusion. Initial repeat chest x-ray showed improved pleural effusion Repeat CXR to eval left pleural effusion today (01/07) Pulmonary consultation for left pleural effusion - recommend to continue diuresis 01/07 - Per Cardiology, consider switching to p.o. Lasix, will review chest x-ray UTI Urine culture positive for Klebsiella Currently on p.o. Keflex, will continue for now Patient continues to have confusion about her 's having an affair, passenger service representative from [employer] stop by today, January 07, to talk to the patient, patient is convinced that this person is having an affair with her , patient may be still confused with a UTI and CHF exacerbation She is however reasonable with other things, and answering questions appropriately about anything else Hypothyroidism, euthyroid as of current TSH Prediabetes, hemoglobin A1c of 5.8 2019 Post laxative diarrhea rule out C. difficile C. diff negative Episodic left hip pain rule out bony pathology Plain x-ray left hip IMPRESSION: Osteopenia and degenerative change as above with no acute bony abnormality identified. DVT prophylaxis. Lovenox subcu Full code Admission and Anticipated Discharge Date Admission Date: January 03, 2021 Subjective Patient seen in follow-up of acute heart failure with preserved ejection fraction, pleural effusions Patient is currently laying in bed in no acute distress, breathing comfortably on room air She is speaking in full sentences without any difficulty Continues to be distressed about her 's behavior Currently denies any chest pain, shortness of breath abdominal pain, nausea or vomiting Review of Systems Review of Systems: All systems reviewed & are unremarkable except as noted in Subjective Physical Exam Physical Exam: GENERAL: Elderly female,in no respiratory distress , conversing easily on room air SKIN: Normal color, warm HEENT: NC/AT, [place] palpebral conjunctivae, no ptosis, dry buccal mucosa NECK : Supple, no tenderness CHEST : Decreased breath sounds, bibasilar crackles, no tenderness HEART : Irregular rhythm, apical systolic murmur ABDOMEN: mild distention, nontender EXTREMITIES : 1+ b/l LE edema, no LE tenderness NEUROLOGIC : Alert awake, answering questions appropriately, no facial asymmetry, mild hearing impairment, moving extremities spontaneously and without difficulty Results & Data Results & Data ([facility]) Vital Signs (Past 12 Hours) Vital Signs Temp Pulse Resp BP Pulse Ox 01/07/21 02:28 36.9 C 64 15 104/72 96 01/06/21 23:32 36.9 C 80 17 139/85 97 Laboratory Results 01/07/21 01/07/21 Range/Units 05:49 05:49 WBC 6.42 (4.8-10.8) K/uL RBC 5.30 (4.2-5.4) M/uL Hgb 15.4 (12.0-16.0) g/dL Hct 47.0 (37-47) % MCV 88.7 (80-100) fL MCH 29.1 (25-34) pg MCHC 32.8 (32-36) g/dL RDW Std Deviation 65.7 H (36.4-46.3) fL RDW Coeff of Del 20.5 H (11.5-14.5) % Plt Count 191 (130-400) K/uL MPV 11.1 H (7.4-10.4) fL Sodium 134 L (136-145) mmol/L Potassium 4.6 (3.5-5.1) mmol/L Chloride 103 (98-107) mmol/L Carbon Dioxide 27 (21-32) mmol/L Anion Gap 4.0 (3-11) BUN 22 H (7-18) mg/dl Creatinine 0.82 (0.6-1.2) mg/dl Est Cr Clr Drug Dosing 46.8 ml/min Est GFR ( Amer) 76.2 ml/min Est GFR (Non-Af Amer) 65.7 ml/min BUN/Creatinine Ratio 26.6 H (10-20) Glucose 82 (70-99) mg/dl Calcium 8.8 (8.5-10.1) mg/dl Magnesium 2.4 (1.8-2.4) mg/dl Medications Administered Current Inpatient Medications Acetaminophen (Acetaminophen 325 Mg Tab) 650 mg PO Q4 PRN PRN Reason: Pain, Mild Stop: 02/03/21 00:11 Aspirin (Aspirin 81 Mg Ectab) [facility] [place]: 02/03/21 08:59 Last Admin: 01/06/21 08:09 Dose: 81 mg Documented by: Atorvastatin Calcium (Atorvastatin 40 Mg Tab) 40 mg PO HS [facility] Stop: 02/03/21 20:59 Last Admin: 01/06/21 21:01 Dose: 40 mg Documented by: Cephalexin HCl (Cephalexin 500 Mg Cap) 500 mg PO BID [facility] Stop: 01/10/21 10:29 Last Admin: 01/06/21 21:02 Dose: 500 mg Documented by: Cyanocobalamin (Cyanocobalamin 500 Mcg Tablet (Vitamin B-12)) 2,000 mcg PO QAM [facility] Stop: 02/03/21 08:59 Last Admin: 01/06/21 08:09 Dose: 2,000 mcg Documented by: Enoxaparin Sodium (Enoxaparin Inj 30 Mg/0.3 Ml Syr) 30 mg SQ QAM [facility] Stop: 02/03/21 08:59 Last Admin: 01/04/21 08:38 Dose: 30 mg Documented by: Ferrous Sulfate (Ferrous Sulfate 325 Mg Tab) 325 mg PO Q2D [facility] Stop: 02/03/21 08:59 Last Admin: 01/06/21 08:09 Dose: 325 mg Documented by: Promethazine HCl 12.5 mg/ (Sodium Chloride) 50.5 mls @ 202 mls/hr IV Q6H PRN PRN Reason: Nausea And Vomiting Stop: 02/03/21 00:11 Furosemide 40 mg/ Syringe 4 mls @ 4 mls/min IV BID17 [facility] Stop: 02/04/21 08:59 Last Admin: 01/06/21 16:52 Dose: 4 mls/min Documented by: Levothyroxine Sodium (Levothyroxine Sodium 100 Mcg Tablet) 100 mcg PO DAILYBB [facility] Stop: 02/03/21 06:29 Last Admin: 01/07/21 05:36 Dose: 100 mcg Documented by: Losartan Potassium (Losartan Potassium 50 Mg Tab) 50 mg PO HS [facility] Stop: 02/03/21 00:59 Last Admin: 01/06/21 21:02 Dose: 50 mg Documented by: Metoprolol Succinate (Metoprolol Succ 50mg Ext Rel Tab) 100 mg PO QAM [facility] Stop: 02/06/21 08:59 Nitroglycerin (Nitroglycerin Sl 0.4 Mg/Tab Tab) 0.4 mg SL UD PRN PRN Reason: Chest Pain Stop: 02/03/21 00:11 Potassium Chloride (Potassium Chloride Crtab 20 Meq Tabcr) 20 meq PO BID [facility] Stop: 02/03/21 08:59 Last Admin: 01/06/21 21:02 Dose: 20 meq Documented by: Tramadol HCl (Tramadol Hcl 50 Mg Tablet) 25 mg PO Q4H PRN PRN Reason: Pain Stop: 02/03/21 00:11
[2021-01-07] MEDS: METOPROLOL SUCC 50MG EXT REL TAB PO SCH (08:56)
[2021-01-07] MEDS: POTASSIUM CHLORIDE CRTAB 20 MEQ TABCR PO SCH (08:56)
[2021-01-07] MEDS: ASPIRIN 81 MG ECTAB PO SCH (08:56)
[2021-01-07] MEDS: ENOXAPARIN INJ 30 MG/0.3 ML SYR SQ SCH (08:56)
[2021-01-07] MEDS: cephALEXin 500 MG CAP PO SCH ×2 (08:56→20:54)
[2021-01-07] MEDS: FUROSEMIDE 40 MG in SYRINGE 0 ML IV SCH (08:56)
[2021-01-07] MEDS: CYANOCOBALAMIN 500 MCG TABLET (VITAMIN B-12) PO SCH (08:56)
--- NOTE | 2021-01-07 10:44 | Cardiology Progress Note ---
Date of Service January 07, 2021 Assessment & Plan (1) Acute heart failure with preserved ejection fraction (HFpEF): (2) Pleural effusion: (3) Chronic kidney disease, stage 3a: (4) Hypertension: (5) Atrial fibrillation with RVR: (6) History of pacemaker: Plan: The patient is currently euvolemic and I believe we can back down on her diuretics. I stopped the IV Lasix and started her on Lasix 40 mg p.o. twice daily. Patient is in persistent atrial fibrillation with a controlled heart rate. Admission and Anticipated Discharge Date Admission Date: January 03, 2021 Subjective Patient alert but demented Review of Systems Review of Systems: Not obtainable due to patient mental status Physical Exam Physical Exam: General: no acute distress and stated age Head: normocephalic, no masses, lesions, tenderness or abnormalities Eyes: conjunctiva are pink and non-injected, sclera clear Neck: supple, no adenopathy, no bruits, normal jugular venous pulse, no hepatojugular reflux Chest: normal shape and normal respiratory effort Lungs: clear to auscultation and percussion Cardiac Exam: - regular rate & rhythm, no murmurs gallops or rubs - normal S1, normal S2 Pulses: 2(+) throughout Abdomen: abdomen soft, non-tender, no abnormal masses and no hepatosplenomegaly Musculoskeletal: no gait disturbance, no joint inflammation, no deforming arthr itis Extremities: no edema and no cyanosis Neuro: grossly normal exam Results & Data ([facility]) Vital Signs (Past 12 Hours) Vital Signs Temp Pulse Resp BP BP Pulse Ox 01/07/21 07:09 36.4 C L 79 15 159/88 H 97 01/07/21 02:28 36.9 C 64 15 104/72 96 01/06/21 23:32 36.9 C 80 17 139/85 97 Laboratory Results Laboratory Results - last 24 hr 01/07/21 01/07/21 05:49 05:49 WBC 6.42 RBC 5.30 Hgb 15.4 Hct 47.0 MCV 88.7 MCH 29.1 MCHC 32.8 RDW Std Deviation 65.7 H RDW Coeff of Del 20.5 H Plt Count 191 MPV 11.1 H Sodium 134 L Potassium 4.6 Chloride 103 Carbon Dioxide 27 Anion Gap 4.0 BUN 22 H Creatinine 0.82 Est Cr Clr Drug Dosing 46.8 Est GFR ( Amer) 76.2 Est GFR (Non-Af Amer) 65.7 BUN/Creatinine Ratio 26.6 H Glucose 82 Calcium 8.8 Magnesium 2.4 Medications Administered Current Inpatient Medications Acetaminophen (Acetaminophen 325 Mg Tab) 650 mg PO Q4 PRN PRN Reason: Pain, Mild Stop: 02/03/21 00:11 Aspirin (Aspirin 81 Mg Ectab) [facility] [place]: 02/03/21 08:59 Last Admin: 01/07/21 08:56 Dose: 81 mg Documented by: Atorvastatin Calcium (Atorvastatin 40 Mg Tab) 40 mg PO [facility] Stop: 02/03/21 20:59 Last Admin: 01/06/21 21:01 Dose: 40 mg Documented by: Cephalexin HCl (Cephalexin 500 Mg Cap) 500 mg PO BID [facility] Stop: 01/10/21 10:29 Last Admin: 01/07/21 08:56 Dose: 500 mg Documented by: Cyanocobalamin (Cyanocobalamin 500 Mcg Tablet (Vitamin B-12)) 2,000 [facility]cg [facility] [place] Stop: 02/03/21 08:59 Last Admin: 01/07/21 08:56 Dose: 2,000 mcg Documented by: Enoxaparin Sodium (Enoxaparin Inj 30 Mg/0.3 Ml Syr) 30 mg SQ QAM [facility] Stop: 02/03/21 08:59 Last Admin: 01/07/21 08:56 Dose: 30 mg Documented by: Ferrous Sulfate (Ferrous Sulfate 325 Mg Tab) 325 mg PO Q2D [facility] Stop: 02/03/21 08:59 Last Admin: 01/06/21 08:09 Dose: 325 mg Documented by: Furosemide (Furosemide 40 Mg Tab) 40 mg PO BID17 [facility] Stop: 02/06/21 16:59 Promethazine HCl 12.5 mg/ (Sodium Chloride) 50.5 mls @ 202 mls/hr IV Q6H PRN PRN Reason: Nausea And Vomiting Stop: 02/03/21 00:11 Levothyroxine Sodium (Levothyroxine Sodium 100 Mcg Tablet) 100 mcg PO DAILYBB [facility] Stop: 02/03/21 06:29 Last Admin: 01/07/21 05:36 Dose: 100 mcg Documented by: Losartan Potassium (Losartan Potassium 50 Mg Tab) 50 mg PO HS [facility] Stop: 02/03/21 00:59 Last Admin: 01/06/21 21:02 Dose: 50 mg Documented by: Metoprolol Succinate (Metoprolol Succ 50mg Ext Rel Tab) 100 mg PO QAM [facility] Stop: 02/06/21 08:59 Last Admin: 01/07/21 08:56 Dose: 100 mg Documented by: Nitroglycerin (Nitroglycerin Sl 0.4 Mg/Tab Tab) 0.4 mg SL UD PRN PRN Reason: Chest Pain Stop: 02/03/21 00:11 Potassium Chloride (Potassium Chloride Crtab 20 Meq Tabcr) 20 meq PO BID [facility] Stop: 02/03/21 08:59 Last Admin: 01/07/21 08:56 Dose: 20 meq Documented by: Tramadol HCl (Tramadol Hcl 50 Mg Tablet) 25 mg PO Q4H PRN PRN Reason: Pain Stop: 02/03/21 00:11 (1) Hypertension Hypertension type: unspecified Qualified Code(s): I10 - Essential (primary) hypertension
--- NOTE | 2021-01-07 13:27 | XRay Report ---
XR chest 1V portable CLINICAL HISTORY: follow up pl. effusion COMPARISON STUDY: January 05, 2021 FINDINGS: No pneumothorax. Mild interval worsening of the left pleural effusion associated with atelectasis/infiltrate at the le ft base. Redemonstration of diffuse prominence of pulmonary interstitium which is unchanged since prior study. Peribronchial cuffing is again seen. Redemonstration of the mild to moderate cardiomegaly, unchanged since prior. Pulmonary vasculature is indistinct.. Osseous structures: Osteopenia. Degenerative changes of the spine. Stable position of left-sided dual-lead pacemaker with battery pack partially obscuring left lung par enchyma. IMPRESSION: 1. Mild interval worsening of large left pleural effusion associated with atelectasis/infiltrate at the left base. 2. Redemonstration of CHF pattern with spot possible pulmonary edema. 3. The rest of findings as above. ACT 112: Negative or not required by law. The above report was generated using voice recognition software. It may contain grammatical, syntax o r spelling errors. Electronically signed by: Mary Burgess DO 01/07/2021 1:25 PM
[2021-01-07] MEDS ORDERED: FUROSEMIDE 40 MG in SYRINGE 0 ML IV ONE (15:15)
[2021-01-07] MEDS ORDERED: traMADol HCL 50 MG TABLET PO PRN (16:34)
[2021-01-07] MEDS ORDERED: FUROSEMIDE 40 MG TAB PO SCH (17:00)
[2021-01-07] MEDS ORDERED: OXYMETAZOLINE 0.05% 30 ML BTL ONE ×2 (19:42→23:30)
[2021-01-07] MEDS: ATORVASTATIN 40 MG TAB PO SCH (20:54)
[2021-01-07] MEDS: LOSARTAN POTASSIUM 50 MG TAB PO SCH (20:54)
[2021-01-07] MEDS ORDERED: hydrALAZINE HCL 20 MG/ML VIAL IV ONE (23:27)
--- NOTE | 2021-01-08 01:37 | Emergency Department Note ---
ED Visit Note I was asked to evaluate the patient for acute epistaxis. I received a phone call from Dr. Shell who was the on-call [facility] hospitalist this evening. The patient started having epistaxis earlier in the evening. Multiple attempts were made to stop this using conservative methods including nose clip and Afrin protocol. They were unsuccessful and the patient ultimately required further intervention. Calls were made to ENT but they were unable to obtain a consult this evening for ENT. I was asked to evaluate the patient. She appears to have left-sided epistaxis but at times it was also coming down the right side. The patient was on Lovenox previously but this has since been held. Patient appeared to be a good candidate for nasal packing. Anterior Nasal Packing Indication: Left-sided epistaxis Verbal consent obtained. Risks and benefits were explained with the usual customary discussion. A time out was taken. Clots were removed with suction. The left naris was prepped with Afrin and lidocaine. A 5.5-cm nasal balloon was placed in a standard fashion. The balloon was inflated with 4 cc of air. The patient tolerated this well. Hemostasis was achieved. No complications. . : Hypertension Qualifiers: Hypertension type: unspecified Qualified Code(s): I10 - Essential (primary) hypertension
[2021-01-08] MEDS ORDERED: AMOXICILLIN/CLAVULANATE 875 MG TAB PO SCH (01:55)
[2021-01-08] MEDS: LEVOTHYROXINE SODIUM 100 MCG TABLET PO SCH (05:50)
[2021-01-08 06:13] LABS: Hematocrit (blood only) 45.9 % (37-47); Hemoglobin 15.2 g/dL (12.0-16.0); Mean Corpuscular Hemoglobin 29.2 pg (25-34); Mean Corpuscular Hgb Conc 33.1 g/dL (32-36); Mean Corpuscular Volume 88.3 fL (80-100); Mean Platelet Volume 10.5 fL (7.4-10.4); Platelet Count 189 K/uL (130-400); RDW Standard Deviation 64.7 fL (36.4-46.3)
--- NOTE | 2021-01-08 06:35 | Hospitalist Progress Note ---
Date of Service January 08, 2021 Assessment & Plan Admission and Anticipated Discharge Date Admission Date: January 03, 2021 Subjective patient was having epistaxis last night. Sprayed afrin 3 times but was not stop ping. Er kindly did the nasal packing on left nostril and it helped to stop the bleeding. Holding lovenox and aspirin. Stopped kefllex and starting on augmentin. Consulting ENT. Thanks Results & Data Results & Data ([facility]) Vital Signs (Past 12 Hours) Vital Signs Temp Pulse Pulse Pulse Resp BP BP 01/08/21 03:48 36.6 C 78 18 148/85 H 01/08/21 01:38 78 01/08/21 00:55 72 84 20 145/97 H 01/07/21 22:56 35.9 C L 88 20 154/107 H 141/84 H 01/07/21 19:00 35.6 C L 81 18 126/84 Pulse Ox 01/08/21 03:48 95 01/08/21 01:38 01/08/21 00:55 95 01/07/21 22:56 93 01/07/21 19:00 96
[2021-01-08 06:56] LABS: BUN Creatinine Ratio 47.7 (10-20); Calcium 8.8 mg/dl (8.5-10.1); Creatinine Clr Calc Pharmacy 59.1 ml/min; Est GFR (African American) 94.5 ml/min; Est GFR (Non-African American) 81.5 ml/min; Magnesium 2.1 mg/dl (1.8-2.4); Potassium 4.3 mmol/L (3.5-5.1)
[2021-01-08 07:03] LABS: Phosphorus 2.7 mg/dl (2.5-4.9)
[2021-01-08] MEDS: FERROUS SULFATE 325 MG TAB PO SCH (08:20)
[2021-01-08] MEDS: METOPROLOL SUCC 50MG EXT REL TAB PO SCH (08:20)
[2021-01-08] MEDS: CYANOCOBALAMIN 500 MCG TABLET (VITAMIN B-12) PO SCH (08:21)
[2021-01-08] MEDS: AMOXICILLIN/CLAVULANATE 875 MG TAB PO SCH ×2 (08:21→16:31)
[2021-01-08] MEDS: ACETAMINOPHEN 325 MG TAB PO PRN (08:24)
--- NOTE | 2021-01-08 11:33 | ENT Consultation ---
Date of Consultation January 08, 2021 Assessment & Plan (1) Epistaxis: This 85-year-old lady seen by me in April for epistaxis, did not undergo endoscopic cautery, again had epistaxis when placed on Lovenox, was of Coumadin due to intracranial bleed and abdominal bleed, had anterior packing left nostril last night with good control. Will leave packing in place until Saturday and remove in the office or in-house here if she is still in-house. (2) Acute heart failure with preserved ejection fraction (HFpEF): (3) Decompensated heart failure: (4) Weakness: (5) Hypertension: (6) SOB (shortness of breath): (7) Pleural effusion: (8) Dementia: (9) Chronic kidney disease, stage 3a: (10) Atrial fibrillation with RVR: (11) Stroke-like symptom: (12) Acquired deviated nasal septum: (13) Sick sinus syndrome: History of Present Illness Reason for Consultation: Nosebleed Attending Physician: Chente Cerrato MD History of Present Illness This 85-year-old lady previously seen by me in April 2020 for epistaxis, with dementia and CHF, previous history of intracranial bleed and abdominal bleed, atrial fibrillation, taken off Coumadin due to bleeds, restarted on Lovenox and again has epistaxis left side. This was packed last night with anterior packing with good control. Allergies Allergy/AdvReac Type Severity Reaction Status Date / Time mirtazapine Allergy Unknown Rash Verified 01/03/21 17:52 lisinopril AdvReac Unknown Cough Verified 01/03/21 17:52 Home Medications Medication Instructions Recorded Confirmed Type levothyroxine 100 mcg tablet 100 mcg PO QAM 05/11/19 01/03/21 History magnesium oxide 400 mg (241.3 mg 400 mg PO QAM 05/11/19 01/03/21 History magnesium) tablet (MagOx) sennosides 8.6 mg-docusate sodium 1 tab PO BID 05/11/19 01/03/21 History 50 mg tablet (Senna Plus) atorvastatin 40 mg tablet 40 mg PO HS 02/05/20 01/03/21 History calcium carbonate 500 mg (1,250 1 tab PO Q12H 02/05/20 01/03/21 History mg)-vitamin D3 400 unit tablet (Calcium 500 + D) losartan 25 mg tablet 25 mg PO HS 02/05/20 01/03/21 History metoprolol succinate 25 mg 75 mg PO QAM 02/05/20 01/03/21 History tablet,extended release 24 hr polyethylene glycol 3350 17 17 g PO QAM 02/05/20 01/03/21 History gram/dose oral powder mupirocin 2 % topical ointment 1 applic TOPICAL HS 03/06/20 01/03/21 History lidocaine HCl 4 % topical cream 1 applic TOPICAL HS PRN 05/18/20 01/03/21 History (Aspercreme (lidocaine HCl)) nystatin 100,000 unit/gram topical 1 applic TOPICAL BID PRN 05/18/20 01/03/21 History cream tramadol 50 mg tablet 50 mg PO BID PRN 05/18/20 01/03/21 History aspirin 81 mg tablet,delayed 81 mg PO QAM 07/21/20 01/03/21 History release cyanocobalamin (vitamin B-12) 2,000 mcg PO QAM 07/21/20 01/03/21 History 1,000 mcg tablet (Vitamin B-12) acetaminophen 325 mg tablet 650 mg PO Q4 PRN MDD 3g 01/03/21 01/03/21 History acetaminophen 325 mg tablet 650 mg PO Q4 PRN MDD 3g 01/03/21 01/03/21 History ferrous sulfate 325 mg (65 mg 325 mg PO Q OTHER DAY 01/03/21 01/03/21 History iron) tablet oxymetazoline 0.05 % nasal spray 2 spray INTRANASAL UD PRN 01/03/21 01/03/21 History (Afrin (oxymetazoline)) Patient History Medical History (Updated 01/04/21 @ 15:42 by Mark Brown MD) Anxiety Atrial fibrillation No AC secondary to history of bleeding issues (traumatic brain hemorrhage/intra- abdominal hemorrhage) Chronic hyponatremia Constipation COVID-19 Fracture of neck of scapula HTN (hypertension) Hyperlipidemia Hypomagnesemia Hypothyroidism Osteoarthritis Sick sinus syndrome S/p pacemaker TIA (transient ischemic attack) Possible in December 08, 2019 TIA 05/2019 per records. Last seen by neuro= 01/08/20- follow up PRN. Continue ASA. Surgical History H/O colonoscopy History of pacemaker Family History Other Cancer Social History Smoking Status: Never smoker Hx Alcohol Use: No Hx Substance Use: No Preferred Language: Thai Communication Ability: Effective Director Of [employer] Required: No Beliefs That Will Affect Care: None marital status: Current Living Situation: Spouse and Personal Care Facility Current Living Situation Comment: [facility] current occupational status: retired Feels Safe at Home: Yes Safety Concerns: Feels Safe At This Time Assistive Devices: Walker Physical Exam Constitutional: + ill appearing, + cachectic and + frail appearing Eyes: PERRL, conjunctivae normal, anicteric sclerae ENMT: external ear and nose normal, oropharynx normal Nose: + septum abnormality (Septal deviation right) and + nare abnormality (Packed left nostril) Results & Data ([facility]) Vital Signs (Past 12 Hours) Vital Signs Temp Pulse Pulse Pulse Resp BP Pulse Ox 01/08/21 11:18 36.5 C 72 18 121/80 96 01/08/21 07:30 36.4 C L 75 18 158/96 H 95 01/08/21 07:15 80 01/08/21 03:48 36.6 C 78 18 148/85 H 95 01/08/21 01:38 78 01/08/21 00:55 72 84 20 145/97 H 95 (1) Hypertension Hypertension type: unspecified Qualified Code(s): I10 - Essential (primary) hypertension
--- NOTE | 2021-01-08 11:50 | Cardiology Progress Note ---
Date of Service January 08, 2021 Assessment & Plan (1) Acute heart failure with preserved ejection fraction (HFpEF): (2) Pleural effusion: (3) Chronic kidney disease, stage 3a: (4) Hypertension: (5) Atrial fibrillation with RVR: (6) History of pacemaker: Plan: The patient is currently off of anticoagulation due to epistaxis and has a nasal balloon in place. ENT will see her and make recommendations. Continue to hold diuretics. Continue to hold Lovenox and aspirin. Admission and Anticipated Discharge Date Admission Date: January 03, 2021 Subjective The patient had epistaxis in the middle the night requiring a nasal rocket placed by the ER physician. She was taken off of all anticoagulation. She is currently comfortable. Review of Systems Review of Systems: Unobtainable due to patient's mental status. Physical Exam Physical Exam: General: no acute distress and stated age Head: normocephalic, no masses, lesions, tenderness or abnormalities Eyes: conjunctiva are pink and non-injected, sclera clear Neck: supple, no adenopathy, no bruits, normal jugular venous pulse, no hepatojugular reflux Chest: normal shape and normal respiratory effort Lungs: clear to auscultation and percussion Cardiac Exam: - irregular rate & rhythm, no murmurs gallops or rubs - normal S1, normal S2 Pulses: 2(+) throughout Abdomen: abdomen soft, non-tender, no abnormal masses and no hepatosplenomegaly Musculoskeletal: no gait disturbance, no joint inflammation, no deforming arthritis Extremities: no edema and no cyanosis Neuro: grossly normal exam Results & Data ([facility]) Vital Signs (Past 12 Hours) Vital Signs Temp Pulse Pulse Pulse Resp BP Pulse Ox 01/08/21 11:18 36.5 C 72 18 121/80 96 01/08/21 07:30 36.4 C L 75 18 158/96 H 95 01/08/21 07:15 80 01/08/21 03:48 36.6 C 78 18 148/85 H 95 01/08/21 01:38 78 01/08/21 00:55 72 84 20 145/97 H 95 Laboratory Results Laboratory Results - last 24 hr 01/07/21 01/08/21 01/08/21 15:15 05:37 05:37 WBC 7.20 RBC 5.20 Hgb 15.2 Hct 45.9 MCV 88.3 MCH 29.2 MCHC 33.1 RDW Std Deviation 64.7 H RDW Coeff of Del 20.0 H Plt Count 189 MPV 10.5 H Sodium 133 L Potassium 4.3 Chloride 104 Carbon Dioxide 21 Anion Gap 8.0 BUN 31 H Creatinine 0.65 Est Cr Clr Drug Dosing 59.1 Est GFR ( Amer) 94.5 Est GFR (Non-Af Amer) 81.5 BUN/Creatinine Ratio 47.7 H Glucose 104 H Calcium 8.8 Phosphorus 2.7 Magnesium 2.1 Procalcitonin < 0.05 01/08/21 05:37 WBC RBC Hgb Hct MCV MCH MCHC RDW Std Deviation RDW Coeff of Del Plt Count MPV Sodium Potassium Chloride Carbon Dioxide Anion Gap BUN Creatinine Est Cr Clr Drug Dosing Est GFR ( Amer) Est GFR (Non-Af Amer) BUN/Creatinine Ratio Glucose Calcium Phosphorus Magnesium Procalcitonin < 0.05 Medications Administered Current Inpatient Medications Acetaminophen (Acetaminophen 325 Mg Tab) 650 mg PO Q4 PRN PRN Reason: Pain, Mild Stop: 02/03/21 00:11 Last Admin: 01/08/21 08:24 Dose: 650 mg Documented by: Amoxicillin/Clavulanate Potassium (Amoxicillin/Clavulanate 875 Mg Tab) 1 tab PO BIDM [facility]; Protocol Stop: 01/18/21 07:59 Last Admin: 01/08/21 08:21 Dose: 1 tab Documented by: Aspirin (Aspirin 81 Mg Ectab) 81 mg PO [facility] Stop: 02/03/21 08:59 Last Admin: 01/07/21 08:56 Dose: 81 mg Documented by: Atorvastatin Calcium (Atorvastatin 40 Mg Tab) 40 mg PO [facility] Stop: 02/03/21 20:59 Last Admin: 01/07/21 20:54 Dose: 40 mg Documented by: Cyanocobalamin (Cyanocobalamin 500 Mcg Tablet (Vitamin B-12)) 2,000 mcg PO [facility] Stop: 02/03/21 08:59 Last Admin: 01/08/21 08:21 Dose: 2,000 mcg Documented by: Enoxaparin Sodium (Enoxaparin Inj 30 Mg/0.3 Ml Syr) 30 mg SQ [facility] Stop: 02/03/21 08:59 Last Admin: 01/07/21 08:56 Dose: 30 mg Documented by: Ferrous Sulfate (Ferrous Sulfate 325 Mg Tab) 325 mg PO Q2D [facility] Stop: 02/03/21 08:59 Last Admin: 01/08/21 08:20 Dose: 325 mg Documented by: Promethazine HCl 12.5 mg/ (Sodium Chloride) 50.5 mls @ 202 mls/hr IV Q6H PRN PRN Reason: Nausea And Vomiting Stop: 02/03/21 00:11 Levothyroxine Sodium (Levothyroxine Sodium 100 Mcg Tablet) 100 mcg PO DAILYBB [facility] Stop: 02/03/21 06:29 Last Admin: 01/08/21 05:50 Dose: 100 mcg Documented by: Losartan Potassium (Losartan Potassium 50 Mg Tab) 50 mg PO HS [facility] Stop: 02/03/21 00:59 Last Admin: 01/07/21 20:54 Dose: 50 mg Documented by: Metoprolol Succinate (Metoprolol Succ 50mg Ext Rel Tab) 100 mg PO QAM [facility] Stop: 02/06/21 08:59 Last Admin: 01/08/21 08:20 Dose: 100 mg Documented by: Nitroglycerin (Nitroglycerin Sl 0.4 Mg/Tab Tab) 0.4 mg SL UD PRN PRN Reason: Chest Pain Stop: 02/03/21 00:11 Tramadol HCl (Tramadol Hcl 50 Mg Tablet) 25 mg PO Q4H PRN PRN Reason: Pain Stop: 02/03/21 00:11 Tramadol HCl (Tramadol Hcl 50 Mg Tablet) 50 mg PO BID PRN PRN Reason: pain moderate to severe Stop: 02/06/21 16:33 (1) Hypertension Hypertension type: unspecified Qualified Code(s): I10 - Essential (primary) hypertension
--- NOTE | 2021-01-08 12:16 | Hospitalist Progress Note ---
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 Echo LV is normal in size. Moderate concentric LVH. Apical wall motion abnormality may reflect pacemaker activation. No regional wall motion abnormalities noted. EF 60 to 65%. There is biatrial enlargement. Aortic valve sclerosis moderate, without significant aortic valvular stenosis. Trace aortic regurg. There is moderate mitral regurg. There is mild to moderate tricuspid regurg. RV systolic pressure is elevated at 30 to 40 mmHg. Moderate sized left pleural effusion. Initial repeat chest x-ray showed improved pleural effusion Repeat CXR to eval left pleural effusion today (01/07) Pulmonary consultation for left pleural effusion - recommend to continue diuresis 01/07 - Per Cardiology, consider switching to p.o. Lasix, will review chest x-ray Epistaxis 01/08 -patient developed epistaxis last evening, no nasal packing in left nostril done by ER physician Started on Augmentin ENT consulted, plan to remove nasal packing on Saturday, January 10 Lovenox and aspirin held UTI Urine culture positive for Klebsiella Currently on p.o. Keflex, continued Patient continued to have confusion about her 's having an affair, inventory representative from [employer] stopped by on January 07, to talk to the patient, patient is convinced that this person is having an affair with her , patient may be still be confused due to UTI and CHF exacerbation She is however reasonable with other things, and answering questions appropriately about anything else Antibiotic now switched to Augmentin, due to epistaxis and nasal packing Hypothyroidism, euthyroid as of current TSH Prediabetes, hemoglobin A1c of 5.8 2020 Post laxative diarrhea rule out C. difficile C. diff negative Episodic left hip pain rule out bony pathology Plain x-ray left hip IMPRESSION: Osteopenia and degenerative change as above with no acute bony abnormality identified. DVT prophylaxis. Lovenox subcu Full code Admission and Anticipated Discharge Date Admission Date: January 03, 2021 Subjective Patient seen in follow-up of acute heart failure with preserved ejection fraction, pleural effusions Developed epistaxis last evening, required nasal packing by ER physician Patient is currently laying in bed in no acute distress, breathing comfortably on room air She is speaking in full sentences without any difficulty Currently denies any chest pain, shortness of breath abdominal pain, nausea or vomiting Review of Systems Review of Systems: All systems reviewed & are unremarkable except as noted in Subjective Physical Exam Physical Exam: GENERAL: Elderly female,in no respiratory distress , conversing easily on room air SKIN: Normal color, warm HEENT: NC/AT, [place] palpebral conjunctivae, no ptosis, dry buccal mucosa NECK : Supple, no tenderness CHEST : Decreased breath sounds, bibasilar crackles, no tenderness HEART : Irregular rhythm, apical systolic murmur ABDOMEN: mild distention, nontender EXTREMITIES : 1+ b/l LE edema, no LE tenderness NEUROLOGIC : Alert awake, answering questions appropriately, no facial asymmetry, mild hearing impairment, moving extremities spontaneously and without difficulty Results & Data Results & Data ([facility]) Vital Signs (Past 12 Hours) Vital Signs Temp Pulse Pulse Pulse Resp BP Pulse Ox 01/08/21 11:18 36.5 C 72 18 121/80 96 01/08/21 07:30 36.4 C L 75 18 158/96 H 95 01/08/21 07:15 80 01/08/21 03:48 36.6 C 78 18 148/85 H 95 01/08/21 01:38 78 01/08/21 00:55 72 84 20 145/97 H 95 Laboratory Results 01/08/21 01/08/21 01/08/21 Range/Units 05:37 05:37 05:37 WBC 7.20 (4.8-10.8) K/uL RBC 5.20 (4.2-5.4) M/uL Hgb 15.2 (12.0-16.0) g/dL Hct 45.9 (37-47) % MCV 88.3 (80-100) fL MCH 29.2 (25-34) pg MCHC 33.1 (32-36) g/dL RDW Std Deviation 64.7 H (36.4-46.3) fL RDW Coeff of Del 20.0 H (11.5-14.5) % Plt Count 189 (130-400) K/uL MPV 10.5 H (7.4-10.4) fL Sodium 133 L (136-145) mmol/L Potassium 4.3 (3.5-5.1) mmol/L Chloride 104 (98-107) mmol/L Carbon Dioxide 21 (21-32) mmol/L Anion Gap 8.0 (3-11) BUN 31 H (7-18) mg/dl Creatinine 0.65 (0.6-1.2) mg/dl Est Cr Clr Drug Dosing 59.1 ml/min Est GFR ( Amer) 94.5 ml/min Est GFR (Non-Af Amer) 81.5 ml/min BUN/Creatinine Ratio 47.7 H (10-20) Glucose 104 H (70-99) mg/dl Calcium 8.8 (8.5-10.1) mg/dl Phosphorus 2.7 (2.5-4.9) mg/dl Magnesium 2.1 (1.8-2.4) mg/dl Procalcitonin < 0.05 (0-0.5) ng/ml 01/07/21 Range/Units 15:15 WBC (4.8-10.8) K/uL RBC (4.2-5.4) M/uL Hgb (12.0-16.0) g/dL Hct (37-47) % MCV (80-100) fL MCH (25-34) pg MCHC (32-36) g/dL RDW Std Deviation (36.4-46.3) fL RDW Coeff of Del (11.5-14.5) % Plt Count (130-400) K/uL MPV (7.4-10.4) fL Sodium (136-145) mmol/L Potassium (3.5-5.1) mmol/L Chloride (98-107) mmol/L Carbon Dioxide (21-32) mmol/L Anion Gap (3-11) BUN (7-18) mg/dl Creatinine (0.6-1.2) mg/dl Est Cr Clr Drug Dosing ml/min Est GFR ( Amer) ml/min Est GFR (Non-Af Amer) ml/min BUN/Creatinine Ratio (10-20) Glucose (70-99) mg/dl Calcium (8.5-10.1) mg/dl Phosphorus (2.5-4.9) mg/dl Magnesium (1.8-2.4) mg/dl Procalcitonin < 0.05 (0-0.5) ng/ml Medications Administered Current Inpatient Medications Acetaminophen (Acetaminophen 325 Mg Tab) 650 mg PO Q4 PRN PRN Reason: Pain, Mild Stop: 02/03/21 00:11 Last Admin: 01/08/21 08:24 Dose: 650 mg Documented by: Amoxicillin/Clavulanate Potassium ([facility]oxicillin/[facility]ulanate 875 Mg Tab) [facility] Stop: 01/18/21 07:59 Last Admin: 01/08/21 08:21 Dose: 1 tab Documented by: Aspirin (Aspirin 81 Mg Ectab) 81 mg PO [facility] Stop: 02/03/21 08:59 Last Admin: 01/07/21 08:56 Dose: 81 mg Documented by: Atorvastatin Calcium (Atorvastatin 40 Mg Tab) 40 mg PO [facility] Stop: 02/03/21 20:59 Last Admin: 01/07/21 20:54 Dose: 40 mg Documented by: Cyanocobalamin (Cyanocobalamin 500 Mcg Tablet (Vitamin B-12)) 2,000 mcg PO [facility] Stop: 02/03/21 08:59 Last Admin: 01/08/21 08:21 Dose: 2,000 mcg Documented by: Enoxaparin Sodium (Enoxaparin Inj 30 Mg/0.3 Ml Syr) 30 mg SQ [facility] Stop: 02/03/21 08:59 Last Admin: 01/07/21 08:56 Dose: 30 mg Documented by: Ferrous Sulfate (Ferrous Sulfate 325 Mg Tab) 325 mg PO Q2D [facility] Stop: 02/03/21 08:59 Last Admin: 01/08/21 08:20 Dose: 325 mg Documented by: Promethazine HCl 12.5 mg/ (Sodium Chloride) 50.5 mls @ 202 mls/hr IV Q6H PRN PRN Reason: Nausea And Vomiting Stop: 02/03/21 00:11 Levothyroxine Sodium (Levothyroxine Sodium 100 Mcg Tablet) [facility] Stop: 02/03/21 06:29 Last Admin: 01/08/21 05:50 Dose: 100 mcg Documented by: Losartan Potassium (Losartan Potassium 50 Mg Tab) 50 mg PO [facility] Stop: 02/03/21 00:59 Last Admin: 01/07/21 20:54 Dose: 50 mg Documented by: Metoprolol Succinate (Metoprolol Succ 50mg Ext Rel Tab) 100 mg PO QAM [facility] Stop: 02/06/21 08:59 Last Admin: 01/08/21 08:20 Dose: 100 mg Documented by: Nitroglycerin (Nitroglycerin Sl 0.4 Mg/Tab Tab) 0.4 mg SL UD PRN PRN Reason: Chest Pain Stop: 02/03/21 00:11 Tramadol HCl (Tramadol Hcl 50 Mg Tablet) 25 mg PO Q4H PRN PRN Reason: Pain Stop: 02/03/21 00:11 Tramadol HCl (Tramadol Hcl 50 Mg Tablet) 50 mg PO BID PRN PRN Reason: pain moderate to severe Stop: 02/06/21 16:33
[2021-01-08] MEDS: ATORVASTATIN 40 MG TAB PO SCH (20:40)
[2021-01-08] MEDS: LOSARTAN POTASSIUM 50 MG TAB PO SCH (20:40)
[2021-01-08] MEDS ORDERED: cloNIDine HCL 0.1 MG TAB PO ONE (23:37)
[2021-01-09] MEDS: LEVOTHYROXINE SODIUM 100 MCG TABLET PO SCH (05:46)
[2021-01-09] MEDS: CYANOCOBALAMIN 500 MCG TABLET (VITAMIN B-12) PO SCH (07:48)
[2021-01-09] MEDS: AMOXICILLIN/CLAVULANATE 875 MG TAB PO SCH ×2 (07:48→17:05)
[2021-01-09] MEDS: METOPROLOL SUCC 50MG EXT REL TAB PO SCH (07:48)
[2021-01-09 08:04] LABS: Hematocrit (blood only) 46.4 % (37-47); Hemoglobin 15.2 g/dL (12.0-16.0); Mean Corpuscular Hemoglobin 29.1 pg (25-34); Mean Corpuscular Hgb Conc 32.8 g/dL (32-36); Mean Corpuscular Volume 88.9 fL (80-100); Platelet Count 189 K/uL (130-400); RDW Standard Deviation 65.1 fL (36.4-46.3); Red Blood Count 5.22 M/uL (4.2-5.4); White Blood Count 6.27 K/uL (4.8-10.8)
[2021-01-09 08:26] LABS: BUN Creatinine Ratio 27.6 (10-20); Calcium 9.1 mg/dl (8.5-10.1); Creatinine Clr Calc Pharmacy 49.5 ml/min; Est GFR (African American) 82.2 ml/min; Est GFR (Non-African American) 70.9 ml/min; Magnesium 1.6 mg/dl (1.8-2.4); Potassium 4.7 mmol/L (3.5-5.1)
[2021-01-09 08:29] LABS: Phosphorus 3.1 mg/dl (2.5-4.9)
--- NOTE | 2021-01-09 10:48 | Cardiology Progress Note ---
Date of Service January 09, 2021 Assessment & Plan (1) Acute heart failure with preserved ejection fraction (HFpEF): (2) Pleural effusion: (3) Chronic kidney disease, stage 3a: (4) Hypertension: (5) Atrial fibrillation with RVR: (6) History of pacemaker: Plan: The patient is currently clinically stable. She still has the nasal balloon in place. She is off of anticoagulation. Currently no active bleeding. Admission and Anticipated Discharge Date Admission Date: January 03, 2021 Subjective The patient is resting comfortably, still with the nasal balloon in place. Review of Systems Review of Systems: Not obtainable due to the patient's mental status. Physical Exam Physical Exam: General: no acute distress and stated age Head: normocephalic, no masses, lesions, tenderness or abnormalities Eyes: conjunctiva are pink and non-injected, sclera clear Neck: supple, no adenopathy, no bruits, normal jugular venous pulse, no hepatojugular reflux Chest: normal shape and normal respiratory effort Lungs: clear to auscultation and percussion Cardiac Exam: - regular rate & rhythm, no murmurs gallops or rubs - normal S1, normal S2 Pulses: 2(+) throughout Abdomen: abdomen soft, non-tender, no abnormal masses and no hepatosplenomegaly Musculoskeletal: no gait disturbance, no joint inflammation, no deforming arthritis Extremities: no edema and no cyanosis Neuro: grossly normal exam Results & Data ([facility]) Vital Signs (Past 12 Hours) Vital Signs Temp Pulse Pulse Resp BP BP Pulse Ox 01/09/21 08:00 71 01/09/21 07:25 36.3 C L 83 18 113/70 96 01/09/21 03:06 77 18 90/65 L 96 01/09/21 00:27 95 H 01/08/21 23:17 36.3 C L 97 H 18 149/111 H 96 Laboratory Results Laboratory Results - last 24 hr 01/09/21 01/09/21 07:43 07:43 WBC 6.27 RBC 5.22 Hgb 15.2 Hct 46.4 MCV 88.9 MCH 29.1 MCHC 32.8 RDW Std Deviation 65.1 H RDW Coeff of Del 20.0 H Plt Count 189 MPV 11.0 H Sodium 133 L Potassium 4.7 Chloride 101 Carbon Dioxide 27 Anion Gap 4.0 BUN 21 H Creatinine 0.77 Est Cr Clr Drug Dosing 49.5 Est GFR ( Amer) 82.2 Est GFR (Non-Af Amer) 70.9 BUN/Creatinine Ratio 27.6 H Glucose 96 Calcium 9.1 Phosphorus 3.1 Magnesium 1.6 L Medications Administered Current Inpatient Medications Acetaminophen (Acetaminophen 325 Mg Tab) 650 mg PO Q4 PRN PRN Reason: Pain, Mild Stop: 02/03/21 00:11 Last Admin: 01/08/21 08:24 Dose: 650 mg Documented by: Amoxicillin/Clavulanate Potassium (Amoxicillin/Clavulanate 875 Mg Tab) 1 tab PO BIDM [facility]; Protocol Stop: 01/18/21 07:59 Last Admin: 01/09/21 07:48 Dose: 1 tab Documented by: Aspirin (Aspirin 81 Mg Ectab) 81 mg PO [facility] Stop: 02/03/21 08:59 Last Admin: 01/07/21 08:56 Dose: 81 mg Documented by: Atorvastatin Calcium (Atorvastatin 40 Mg Tab) 40 mg PO [facility] Stop: 02/03/21 20:59 Last Admin: 01/08/21 20:40 Dose: 40 mg Documented by: Cyanocobalamin (Cyanocobalamin 500 Mcg Tablet (Vitamin B-12)) 2,000 mcg PO [facility] Stop: 02/03/21 08:59 Last Admin: 01/09/21 07:48 Dose: 2,000 mcg Documented by: Enoxaparin Sodium (Enoxaparin Inj 30 Mg/0.3 Ml Syr) 30 mg SQ [facility] Stop: 02/03/21 08:59 Last Admin: 01/07/21 08:56 Dose: 30 mg Documented by: Ferrous Sulfate (Ferrous Sulfate 325 Mg Tab) 325 mg PO Q2D [facility] Stop: 02/03/21 08:59 Last Admin: 01/08/21 08:20 Dose: 325 mg Documented by: Promethazine HCl 12.5 mg/ (Sodium Chloride) 50.5 mls @ 202 mls/hr IV Q6H PRN PRN Reason: Nausea And Vomiting Stop: 02/03/21 00:11 Levothyroxine Sodium (Levothyroxine Sodium 100 Mcg Tablet) [facility] Stop: 02/03/21 06:29 Last Admin: 01/09/21 05:46 Dose: 100 mcg Documented by: Losartan Potassium (Losartan Potassium 50 Mg Tab) 50 mg PO HS [facility] Stop: 02/03/21 00:59 Last Admin: 01/08/21 20:40 Dose: 50 mg Documented by: Metoprolol Succinate (Metoprolol Succ 50mg Ext Rel Tab) 100 mg PO QAM [facility] Stop: 02/06/21 08:59 Last Admin: 01/09/21 07:48 Dose: 100 mg Documented by: Nitroglycerin (Nitroglycerin Sl 0.4 Mg/Tab Tab) 0.4 mg SL UD PRN PRN Reason: Chest Pain Stop: 02/03/21 00:11 Tramadol HCl (Tramadol Hcl 50 Mg Tablet) 25 mg PO Q4H PRN PRN Reason: Pain Stop: 02/03/21 00:11 Tramadol HCl (Tramadol Hcl 50 Mg Tablet) 50 mg PO BID PRN PRN Reason: pain moderate to severe Stop: 02/06/21 16:33 (1) Hypertension Hypertension type: unspecified Qualified Code(s): I10 - Essential (primary) hypertension
[2021-01-09] MEDS: MAGNESIUM OXIDE 400 MG TAB PO SCH ×2 (13:35→20:39)
[2021-01-09] MEDS: ACETAMINOPHEN 325 MG TAB PO PRN (15:18)
[2021-01-09] MEDS ORDERED: MAGNESIUM SULFATE / D5W 1 GM/100 ML BAG IV ONE (16:26)
[2021-01-09] MEDS: ATORVASTATIN 40 MG TAB PO SCH (20:39)
[2021-01-09] MEDS: LOSARTAN POTASSIUM 50 MG TAB PO SCH (20:39)
[2021-01-10] MEDS: LEVOTHYROXINE SODIUM 100 MCG TABLET PO SCH (05:43)
[2021-01-10] MEDS: AMOXICILLIN/CLAVULANATE 875 MG TAB PO SCH ×2 (07:57→16:54)
[2021-01-10] MEDS: METOPROLOL SUCC 50MG EXT REL TAB PO SCH (07:57)
[2021-01-10] MEDS: CYANOCOBALAMIN 500 MCG TABLET (VITAMIN B-12) PO SCH (07:57)
[2021-01-10] MEDS: FERROUS SULFATE 325 MG TAB PO SCH (07:58)
[2021-01-10] MEDS: MAGNESIUM OXIDE 400 MG TAB PO SCH ×2 (07:58→20:17)
--- NOTE | 2021-01-10 08:16 | Hospitalist Progress Note ---
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 Echo LV is normal in size. Moderate concentric LVH. Apical wall motion abnormality may reflect pacemaker activation. No regional wall motion abnormalities noted. EF 60 to 65%. There is biatrial enlargement. Aortic valve sclerosis moderate, without significant aortic valvular stenosis. Trace aortic regurg. There is moderate mitral regurg. There is mild to moderate tricuspid regurg. RV systolic pressure is elevated at 30 to 40 mmHg. Moderate sized left pleural effusion. Initial repeat chest x-ray showed improved pleural effusion Repeat CXR to eval left pleural effusion today (01/07) Pulmonary consultation for left pleural effusion - recommend to continue diuresis 01/07 - Per Cardiology, consider switching to p.o. Lasix, will review chest x-ray Epistaxis 01/08 -patient developed epistaxis last evening, no nasal packing in left nostril done by ER physician Started on Augmentin ENT consulted, plan to remove nasal packing on January 10 Lovenox and aspirin held UTI Urine culture positive for Klebsiella Currently on p.o. Keflex, continued Patient continued to have confusion about her 's having an affair, account maintenance representative from [employer] stopped by on January 07, to talk to the patient, patient is convinced that this person is having an affair with her , patient may be still be confused due to UTI and CHF exacerbation She is however reasonable with other things, and answering questions appropriately about anything else Antibiotic now switched to Augmentin, due to epistaxis and nasal packing Hypothyroidism, euthyroid as of current TSH Prediabetes, hemoglobin A1c of 5.8 2020 Post laxative diarrhea rule out C. difficile C. diff negative Episodic left hip pain rule out bony pathology Plain x-ray left hip IMPRESSION: Osteopenia and degenerative change as above with no acute bony abnormality identified. DVT prophylaxis. Lovenox subcu - on hold now d/t epistaxis Full code Admission and Anticipated Discharge Date Admission Date: January 03, 2021 Subjective Patient seen in follow-up of acute heart failure with preserved ejection fraction, pleural effusions Developed epistaxis, required nasal packing Patient is currently laying in bed in no acute distress, breathing comfortably on room air She is speaking in full sentences without any difficulty Currently denies any chest pain, shortness of breath abdominal pain, nausea or vomiting Review of Systems Review of Systems: All systems reviewed & are unremarkable except as noted in Subjective Physical Exam Physical Exam: GENERAL: Elderly female,in no respiratory distress , conversing easily on room air SKIN: Normal color, warm HEENT: NC/AT, [place] palpebral conjunctivae, no ptosis, dry buccal mucosa NECK : Supple, no tenderness CHEST : Decreased breath sounds, bibasilar crackles, no tenderness HEART : Irregular rhythm, apical systolic murmur ABDOMEN: mild distention, nontender EXTREMITIES : 1+ b/l LE edema, no LE tenderness NEUROLOGIC : Alert awake, answering questions appropriately, no facial asymmetry, mild hearing impairment, moving extremities spontaneously and without difficulty Results & Data Results & Data ([facility]) Vital Signs (Past 12 Hours) Vital Signs Temp Pulse Pulse Pulse Resp BP BP 01/09/21 22:30 64 Pulse Ox 01/09/21 22:30
--- NOTE | 2021-01-10 08:17 | Hospitalist Progress Note ---
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 Echo LV is normal in size. Moderate concentric LVH. Apical wall motion abnormality may reflect pacemaker activation. No regional wall motion abnormalities noted. EF 60 to 65%. There is biatrial enlargement. Aortic valve sclerosis moderate, without significant aortic valvular stenosis. Trace aortic regurg. There is moderate mitral regurg. There is mild to moderate tricuspid regurg. RV systolic pressure is elevated at 30 to 40 mmHg. Moderate sized left pleural effusion. Initial repeat chest x-ray showed improved pleural effusion Repeat CXR to eval left pleural effusion today (01/07) Pulmonary consultation for left pleural effusion - recommend to continue diuresis 01/07 - Per Cardiology, consider switching to p.o. Lasix, will review chest x-ray Epistaxis 01/08 -patient developed epistaxis last evening, no nasal packing in left nostril done by ER physician Started on Augmentin ENT consulted, plan to remove nasal packing on January 10 ENT remove nasal packing today, there was still some bright red blood, gauze Afrin applied, continue to closely monitor if rebleeds needs to have procedure in OR Lovenox and aspirin held UTI Urine culture positive for Klebsiella Currently on p.o. Keflex, continued Patient continued to have confusion about her 's having an affair, patient service representative from [employer] stopped by on January 07, to talk to the patient, patient is convinced that this person is having an affair with her , patient may be still be confused due to UTI and CHF exacerbation She is however reasonable with other things, and answering questions appropriately about anything else Antibiotic now switched to Augmentin, due to epistaxis and nasal packing Hypothyroidism, euthyroid as of current TSH Prediabetes, hemoglobin A1c of 5.8 2020 Post laxative diarrhea rule out C. difficile C. diff negative Episodic left hip pain rule out bony pathology Plain x-ray left hip IMPRESSION: Osteopenia and degenerative change as above with no acute bony abnor mality identified. DVT prophylaxis. Lovenox subcu - on hold now d/t epistaxis Full code Admission and Anticipated Discharge Date Admission Date: January 03, 2021 Subjective Patient seen in follow-up of acute heart failure with preserved ejection fraction, pleural effusions Developed epistaxis, required nasal packing Patient is currently laying in bed in no acute distress, breathing comfortably on room air She is speaking in full sentences without any difficulty Currently denies any chest pain, shortness of breath abdominal pain, nausea or vomiting Seen by ENT today, nasal packing was removed, however she continued to have some bright red blood Review of Systems Review of Systems: All systems reviewed & are unremarkable except as noted in Subjective Physical Exam Physical Exam: GENERAL: Elderly female,in no respiratory distress , conversing easily on room air SKIN: Normal color, warm HEENT: NC/AT, [place] palpebral conjunctivae, no ptosis, dry buccal mucosa NECK : Supple, no tenderness CHEST : CTAB, bibasilar crackles, no tenderness HEART : Irregular rhythm, apical systolic murmur ABDOMEN: mild distention, nontender EXTREMITIES : 1+ b/l LE edema, no LE tenderness NEUROLOGIC : Alert awake, answering questions appropriately, no facial asymmetry, mild hearing impairment, moving extremities spontaneously and without difficulty Results & Data Results & Data ([facility]) Vital Signs (Past 12 Hours) Vital Signs Temp Pulse Pulse Pulse Resp BP BP 01/10/21 07:17 36.4 C L 70 20 138/84 01/10/21 03:24 36.3 C L 70 20 136/86 01/09/21 23:02 35.7 C L 68 18 115/74 01/09/21 22:30 64 Pulse Ox 01/10/21 07:17 99 01/10/21 03:24 97 01/09/21 23:02 97 01/09/21 22:30 Laboratory Results 01/10/21 01/10/21 Range/Units 08:19 08:19 WBC 6.72 (4.8-10.8) K/uL RBC 5.08 (4.2-5.4) M/uL Hgb 14.8 (12.0-16.0) g/dL Hct 44.8 (37-47) % MCV 88.2 (80-100) fL MCH 29.1 (25-34) pg MCHC 33.0 (32-36) g/dL RDW Std Deviation 64.5 H (36.4-46.3) fL RDW Coeff of Del 19.7 H (11.5-14.5) % Plt Count 180 (130-400) K/uL MPV 10.5 H (7.4-10.4) fL Sodium 133 L (136-145) mmol/L Potassium 4.3 (3.5-5.1) mmol/L Chloride 103 (98-107) mmol/L Carbon Dioxide 23 (21-32) mmol/L Anion Gap 6.0 (3-11) BUN 20 H (7-18) mg/dl Creatinine 0.77 (0.6-1.2) mg/dl Est Cr Clr Drug Dosing 50.5 ml/min Est GFR ( Amer) 82.2 ml/min Est GFR (Non-Af Amer) 70.9 ml/min BUN/Creatinine Ratio 26.3 H (10-20) Glucose 99 (70-99) mg/dl Calcium 8.9 (8.5-10.1) mg/dl Magnesium 2.1 (1.8-2.4) mg/dl Medications Administered Current Inpatient Medications Acetaminophen (Acetaminophen 325 Mg Tab) 650 mg PO Q4 PRN PRN Reason: Pain, Mild Stop: 02/03/21 00:11 Last Admin: 01/09/21 15:18 Dose: 650 mg Documented by: Amoxicillin/Clavulanate Potassium (Amoxicillin/Clavulanate 875 Mg Tab) 1 tab PO BIDM [facility]; Protocol Stop: 01/18/21 07:59 Last Admin: 01/10/21 07:57 Dose: 1 tab Documented by: Aspirin (Aspirin 81 Mg Ectab) 81 mg PO [facility] Stop: 02/03/21 08:59 Last Admin: 01/07/21 08:56 Dose: 81 mg Documented by: Atorvastatin Calcium (Atorvastatin 40 Mg Tab) 40 mg PO [facility] Stop: 02/03/21 20:59 Last Admin: 01/09/21 20:39 Dose: 40 mg Documented by: Cyanocobalamin (Cyanocobalamin 500 Mcg Tablet (Vitamin B-12)) 2,000 mcg PO [facility] Stop: 02/03/21 08:59 Last Admin: 01/10/21 07:57 Dose: 2,000 mcg Documented by: Enoxaparin Sodium (Enoxaparin Inj 30 Mg/0.3 Ml Syr) 30 mg SQ QAM [facility] Stop: 02/03/21 08:59 Last Admin: 01/07/21 08:56 Dose: 30 mg Documented by: Ferrous Sulfate (Ferrous Sulfate 325 Mg Tab) 325 mg PO Q2D [facility] Stop: 02/03/21 08:59 Last Admin: 01/10/21 07:58 Dose: 325 mg Documented by: Promethazine HCl 12.5 mg/ (Sodium Chloride) 50.5 mls @ 202 mls/hr IV Q6H PRN PRN Reason: Nausea And Vomiting Stop: 02/03/21 00:11 Levothyroxine Sodium (Levothyroxine Sodium 100 Mcg Tablet) 100 mcg PO DAILYBB [facility] Stop: 02/03/21 06:29 Last Admin: 01/10/21 05:43 Dose: 100 mcg Documented by: Losartan Potassium (Losartan Potassium 50 Mg Tab) 50 mg PO HS [facility] Stop: 02/03/21 00:59 Last Admin: 01/09/21 20:39 Dose: 50 mg Documented by: Magnesium Oxide (Magnesium Oxide 400 Mg Tab) 400 mg PO BID [facility] Stop: 02/08/21 12:59 Last Admin: 01/10/21 07:58 Dose: 400 mg Documented by: Metoprolol Succinate (Metoprolol Succ 50mg Ext Rel Tab) 100 mg PO [facility] Stop: 02/06/21 08:59 Last Admin: 01/10/21 07:57 Dose: 100 mg Documented by: Nitroglycerin (Nitroglycerin Sl 0.4 Mg/Tab Tab) 0.4 mg SL UD PRN PRN Reason: Chest Pain Stop: 02/03/21 00:11 Tramadol HCl (Tramadol Hcl 50 Mg Tablet) 25 mg PO Q4H PRN PRN Reason: Pain Stop: 02/03/21 00:11 Tramadol HCl (Tramadol Hcl 50 Mg Tablet) 50 mg PO BID PRN PRN Reason: pain moderate to severe Stop: 02/06/21 16:33
[2021-01-10 08:43] LABS: Hematocrit (blood only) 44.8 % (37-47); Hemoglobin 14.8 g/dL (12.0-16.0); Mean Corpuscular Hemoglobin 29.1 pg (25-34); Mean Corpuscular Volume 88.2 fL (80-100); Mean Platelet Volume 10.5 fL (7.4-10.4); Platelet Count 180 K/uL (130-400); RDW Coefficient of Variation 19.7 % (11.5-14.5); RDW Standard Deviation 64.5 fL (36.4-46.3); Red Blood Count 5.08 M/uL (4.2-5.4); White Blood Count 6.72 K/uL (4.8-10.8)
[2021-01-10 09:08] LABS: BUN Creatinine Ratio 26.3 (10-20); Calcium 8.9 mg/dl (8.5-10.1); Creatinine Clr Calc Pharmacy 50.5 ml/min; Est GFR (African American) 82.2 ml/min; Est GFR (Non-African American) 70.9 ml/min; Magnesium 2.1 mg/dl (1.8-2.4); Potassium 4.3 mmol/L (3.5-5.1)
--- NOTE | 2021-01-10 10:16 | Cardiology Progress Note ---
Date of Service January 10, 2021 Assessment & Plan (1) Diastolic heart failure with preserved ejection fraction: (2) Atrial fibrillation: (3) Pacemaker: (4) Epistaxis: Plan: The patient is in a persistent atrial fibrillation with adequately controlled heart rates backed up by her pacemaker. She is still off of anticoagulation and this should not be restarted to feel she has hemostasis of her epistaxis. Otherwise the patient is stable and I have no additional recommendations. Admission and Anticipated Discharge Date Admission Date: January 03, 2021 Subjective The patient had the nasal balloon removed this morning. She still is having some oozing and some packing was placed. Review of Systems Review of Systems: Review of Systems: See HPI for pertinent positives. All other 10 point review of systems are negative. Physical Exam Physical Exam: General: no acute distress and stated age Head: normocephalic, no masses, lesions, tenderness or abnormalities Eyes: conjunctiva are pink and non-injected, sclera clear Neck: supple, no adenopathy, no bruits, normal jugular venous pulse, no hepatojugular reflux Chest: normal shape and normal respiratory effort Lungs: clear to auscultation and percussion Cardiac Exam: - regular rate & rhythm, no murmurs gallops or rubs - normal S1, normal S2 Pulses: 2(+) throughout Abdomen: abdomen soft, non-tender, no abnormal masses and no hepatosplenomegaly Musculoskeletal: no gait disturbance, no joint inflammation, no deforming arthritis Extremities: no edema and no cyanosis Neuro: grossly normal exam Results & Data ([facility]) Vital Signs (Past 12 Hours) Vital Signs Temp Pulse Pulse Pulse Resp BP BP 01/10/21 07:17 36.4 C L 70 20 138/84 01/10/21 03:24 36.3 C L 70 20 136/86 01/09/21 23:02 35.7 C L 68 18 115/74 01/09/21 22:30 64 Pulse Ox 01/10/21 07:17 99 01/10/21 03:24 97 01/09/21 23:02 97 01/09/21 22:30 Laboratory Results Laboratory Results - last 24 hr 01/10/21 01/10/21 08:19 08:19 WBC 6.72 RBC 5.08 Hgb 14.8 Hct 44.8 MCV 88.2 MCH 29.1 MCHC 33.0 RDW Std Deviation 64.5 H RDW Coeff of Del 19.7 H Plt Count 180 MPV 10.5 H Sodium 133 L Potassium 4.3 Chloride 103 Carbon Dioxide 23 Anion Gap 6.0 BUN 20 H Creatinine 0.77 Est Cr Clr Drug Dosing 50.5 Est GFR ( Amer) 82.2 Est GFR (Non-Af Amer) 70.9 BUN/Creatinine Ratio 26.3 H Glucose 99 Calcium 8.9 Magnesium 2.1 Medications Administered Current Inpatient Medications Acetaminophen (Acetaminophen 325 Mg Tab) 650 mg PO Q4 PRN PRN Reason: Pain, Mild Stop: 02/03/21 00:11 Last Admin: 01/09/21 15:18 Dose: 650 mg Documented by: Amoxicillin/Clavulanate Potassium (Amoxicillin/Clavulanate 875 Mg Tab) 1 tab PO BIDM ON LICENSE OF [facility]; Protocol Stop: 01/18/21 07:59 Last Admin: 01/10/21 07:57 Dose: 1 tab Documented by: Aspirin (Aspirin 81 Mg Ectab) 81 mg PO [facility] Stop: 02/03/21 08:59 Last Admin: 01/07/21 08:56 Dose: 81 mg Documented by: Atorvastatin Calcium (Atorvastatin 40 Mg Tab) 40 mg PO [facility] Stop: 02/03/21 20:59 Last Admin: 01/09/21 20:39 Dose: 40 mg Documented by: Cyanocobalamin (Cyanocobalamin 500 Mcg Tablet (Vitamin B-12)) 2,000 mcg PO [facility] Stop: 02/03/21 08:59 Last Admin: 01/10/21 07:57 Dose: 2,000 mcg Documented by: Enoxaparin Sodium (Enoxaparin Inj 30 Mg/0.3 Ml Syr) 30 mg SQ [facility] Stop: 02/03/21 08:59 Last Admin: 01/07/21 08:56 Dose: 30 mg Documented by: Ferrous Sulfate (Ferrous Sulfate 325 Mg Tab) 325 mg PO Q2D ON LICENSE OF [facility] Stop: 02/03/21 08:59 Last Admin: 01/10/21 07:58 Dose: 325 mg Documented by: Promethazine HCl 12.5 mg/ (Sodium Chloride) 50.5 mls @ 202 mls/hr IV Q6H PRN PRN Reason: Nausea And Vomiting Stop: 02/03/21 00:11 Levothyroxine Sodium (Levothyroxine Sodium 100 Mcg Tablet) 100 mcg PO DAILYBB ON LICENSE OF [facility] Stop: 02/03/21 06:29 Last Admin: 01/10/21 05:43 Dose: 100 mcg Documented by: Losartan Potassium (Losartan Potassium 50 Mg Tab) 50 mg PO HS [facility] OF [facility] Stop: 02/03/21 00:59 Last Admin: 01/09/21 20:39 Dose: 50 mg Documented by: Magnesium Oxide (Magnesium Oxide 400 Mg Tab) 400 mg PO BID [facility] OF [facility] Stop: 02/08/21 12:59 Last Admin: 01/10/21 07:58 Dose: 400 mg Documented by: Metoprolol Succinate (Metoprolol Succ 50mg Ext Rel Tab) [facility] Stop: 02/06/21 08:59 Last Admin: 01/10/21 07:57 Dose: 100 mg Documented by: Nitroglycerin (Nitroglycerin Sl 0.4 Mg/Tab Tab) 0.4 mg SL UD PRN PRN Reason: Chest Pain Stop: 02/03/21 00:11 Tramadol HCl (Tramadol Hcl 50 Mg Tablet) 25 mg PO Q4H PRN PRN Reason: Pain Stop: 02/03/21 00:11 Tramadol HCl (Tramadol Hcl 50 Mg Tablet) 50 mg PO BID PRN PRN Reason: pain moderate to severe Stop: 02/06/21 16:33
--- NOTE | 2021-01-10 13:00 | Ears,Nose,Throat Progress Note ---
Date of Service January 10, 2021 Assessment & Plan (1) Epistaxis: Plan: I removed the balloon packing. However she again had small amount of bright red blood. I did pack with 2 inch gauze with Afrin on the gauze. If she continues to bleed she will need endoscopic cautery in the OR. (2) Pacemaker: (3) Atrial fibrillation: (4) Diastolic heart failure with preserved ejection fraction: Admission and Anticipated Discharge Date Admission Date: January 03, 2021 Subjective The patient had the nasal balloon removed this morning. She still is having some oozing and some packing was placed. Physical Exam Constitutional: WD/WN, vitals as above Eyes: PERRL, conjunctivae normal, anicteric sclerae ENMT: Nose: + epistaxis (Balloon removed, again had fresh bright red blood, packed with gauze with A) Neck: trachea midline, no thyromegaly Results & Data ([facility]) Vital Signs (Past 12 Hours) Vital Signs Temp Pulse Pulse Pulse Resp BP BP 01/10/21 12:18 36.5 C 79 16 104/72 01/10/21 08:00 60 01/10/21 07:17 36.4 C L 70 20 138/84 01/10/21 03:24 36.3 C L 70 20 136/86 Pulse Ox 01/10/21 12:18 96 01/10/21 08:00 01/10/21 07:17 99 01/10/21 03:24 97
[2021-01-10] MEDS: LOSARTAN POTASSIUM 50 MG TAB PO SCH (20:17)
[2021-01-10] MEDS: ATORVASTATIN 40 MG TAB PO SCH (20:17)
[2021-01-11] MEDS: LEVOTHYROXINE SODIUM 100 MCG TABLET PO SCH (05:06)
--- NOTE | 2021-01-11 07:43 | Ears,Nose,Throat Progress Note ---
Date of Service January 11, 2021 Assessment & Plan (1) Epistaxis: Plan: Packing itself, dried blood left nares, no further bleeding. No surgical intervention needed. Admission and Anticipated Discharge Date Admission Date: January 03, 2021 Subjective 85-year-old lady, comfortable, packing left nostril fell out sometime overnight, no further bleeding Physical Exam Constitutional: WD/WN, vitals as above Eyes: PERRL, conjunctivae normal, anicteric sclerae ENMT: Nose: + nasal mucous membrane abnormality (Dried blood left nares, no active bleeding, patent passage, packing is out) Neck: trachea midline, no thyromegaly Results & Data ([facility]) Vital Signs (Past 12 Hours) Vital Signs Temp Pulse Pulse Resp BP BP Pulse Ox 01/11/21 07:17 36.4 C L 80 20 124/69 96 01/11/21 03:53 36.5 C 67 20 117/70 98 01/10/21 23:04 36.5 C 80 20 127/75 95 01/10/21 19:56 36.5 C 77 16 101/66 96
[2021-01-11 08:28] LABS: Hematocrit (blood only) 41.8 % (37-47); Hemoglobin 13.8 g/dL (12.0-16.0); Mean Corpuscular Hemoglobin 29.3 pg (25-34); Mean Corpuscular Volume 88.7 fL (80-100); Mean Platelet Volume 10.6 fL (7.4-10.4); Platelet Count 188 K/uL (130-400); RDW Coefficient of Variation 19.5 % (11.5-14.5); RDW Standard Deviation 62.7 fL (36.4-46.3); Red Blood Count 4.71 M/uL (4.2-5.4); White Blood Count 5.23 K/uL (4.8-10.8)
[2021-01-11] MEDS: METOPROLOL SUCC 50MG EXT REL TAB PO SCH (08:45)
[2021-01-11] MEDS: MAGNESIUM OXIDE 400 MG TAB PO SCH ×2 (08:45→20:00)
[2021-01-11] MEDS: CYANOCOBALAMIN 500 MCG TABLET (VITAMIN B-12) PO SCH (08:46)
[2021-01-11] MEDS: AMOXICILLIN/CLAVULANATE 875 MG TAB PO SCH ×2 (08:46→16:20)
[2021-01-11 09:03] LABS: BUN Creatinine Ratio 27.7 (10-20); Creatinine Clr Calc Pharmacy 49.3 ml/min; Est GFR (African American) 79.7 ml/min; Est GFR (Non-African American) 68.7 ml/min; Magnesium 1.7 mg/dl (1.8-2.4); Potassium 4.3 mmol/L (3.5-5.1)
--- NOTE | 2021-01-11 09:20 | Cardiology Progress Note ---
Date of Service January 11, 2021 Assessment & Plan (1) Diastolic heart failure with preserved ejection fraction: (2) Atrial fibrillation: (3) Pacemaker: (4) Epistaxis: Plan: The patient is in a persistent atrial fibrillation with adequately controlled heart rates backed up by her pacemaker. Euvolemic on exam. She is still off of anticoagulation and this should not be restarted until it is felt hemostasis of her epistaxis has been maintained. Risk vs benefit of AC with afib should be considered. Otherwise the patient is stable. No further recommendations at this time. Admission and Anticipated Discharge Date Admission Date: January 03, 2021 Supervising Physician Co-Signing Physician Notes Patient seen and examined with VICKIE Trent. Agree with findings and assessment as above. Epistaxis has stopped. Would not restart anticoagulation. Rates controlled on current medical regimen would continue. Okay to DC telemetry from a cardiac standpoint. Subjective 85-year-old female resting comfortably in chair at the side of the bed. No acute distress. Denies any chest pain or shortness of breath. Notes that the left nostril packing came out 2 days ago and has had no further recurrence of bleeding. No chest pain, shortness of breath, palpitations, dizziness, syncope or near syncope. No orthopnea, PND, or increased lower extremity edema. No fever, chills, cough, hematochezia, melena, or hemoptysis. Past medical history * Symptomatic atrial fibrillation/flutter, QTC prolongation with sotalol low, status post DCCV 11/2017-recurrence of A. fib was prescribed amiodarone, cardioversion complicated requiring intubation with only 50 mg of propofol. Amiodarone was discontinued 05/2018. 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 A+Ox3. HEENT: Normocephalic. Atraumatic. Conjunctiva and sclera clear. NECK: No JVD Heart: Regular rate, irregular irregular rhythm. +1/6 systolic murmur. Lungs: Clear to auscultation. No wheezes, rhonchi, rales. Abdomen: Normal bowel sounds. Soft. Nontender. No masses or organomegaly. No abdominal bruits. Extremities: No edema. No clubbing or cyanosis. Results & Data ([facility]) Vital Signs (Past 12 Hours) Vital Signs Temp Pulse Pulse Pulse Resp BP BP 01/11/21 07:17 36.4 C L 80 20 124/69 01/11/21 07:00 77 01/11/21 03:53 36.5 C 67 20 117/70 01/10/21 23:04 36.5 C 80 20 127/75 Pulse Ox 01/11/21 07:17 96 01/11/21 07:00 01/11/21 03:53 98 01/10/21 23:04 95
[2021-01-11] MEDS ORDERED: POLYETHYLENE (MIRALAX) 17 GM PACK PO PRN (11:57)
[2021-01-11] MEDS: DOCUSATE SODIUM 100 MG CAP PO SCH ×2 (12:14→20:00)
--- NOTE | 2021-01-11 19:42 | Hospitalist Progress Note ---
Date of Service January 11, 2021 Assessment & Plan (1) Decompensated heart failure: Plan: Acute diastolic heart failure Likely due to uncontrolled BP --ECHO:LV is normal in size. Moderate concentric LVH. Apical wall motion abnormality may reflect pacemaker activation. No regional wall motion abnormalities noted. EF 60 to 65%. There is biatrial enlargement. Aortic valve sclerosis moderate, without significant aortic valvular stenosis. Trace aortic regurg. There is moderate mitral regurg. There is mild to moderate tricuspid regurg. RV systolic pressure is elevated at 30 to 40 mmHg. Moderate sized left pleural effusion. -Received IV diuretic Euvolemic currently Appreciate cardiology input Monitor I's and O's, daily weight H/O Sick sinus syndrome S/P PPM off Coumadin secondary to traumatic intracranial hemorrhage HTN Losartan increased to 50 mg Metoprolol increased to 100mg daily Epistaxis Appreciate ENT Input Continue Augmentin Lovenox and aspirin held UTI Urine culture positive for Klebsiella Was on P.o. Keflex Switched to Augmentin due to nasal packing Hypothyroidism euthyroid Prediabetes hemoglobin A1c of 5.8 2019 DVT pPx: Lovenox held due to epistaxis Code Status Full code Admission and Anticipated Discharge Date Admission Date: January 03, 2021 Subjective Patient is seen and examined at bedside No recurrence of nasal bleeding Denies chest pain, shortness of breath, dizziness Nasal packing removed as per administrative services officer of Systems Review of Systems: All systems reviewed & are unremarkable except as noted in Subjective Physical Exam Physical Exam: Physical Exam: Vitals signs as noted above General Appearance:Moderately built and nourished, no apparent distress Head: normocephalic, Atraumatic Eyes: normal inspection, EOMI Neck: supple, Trachea midline Respiratory/Chest: Decreased breath sounds, CTA Cardiovascular: Irregularly irregular, +murmur Abdomen/GI:Soft, Non tender, Bowel sounds present Extremities/Musculoskeletal:normal inspection, no edema Neurologic/Psych:Alert, awake, grossly no focal neurological deficits, + hearing impairment Skin: normal color, warm Results & Data Results & Data ([facility]) Vital Signs (Past 12 Hours) Vital Signs Temp Pulse Pulse Resp BP Pulse Ox 01/11/21 15:33 87 01/11/21 15:14 36.5 C 81 16 119/77 92 01/11/21 11:05 36.6 C 61 16 97/62 L 96 Laboratory Results Short CBC 01/11/21 Range/Units 08:06 WBC 5.23 (4.8-10.8) K/uL Hgb 13.8 (12.0-16.0) g/dL Hct 41.8 (37-47) % Plt Count 188 (130-400) K/uL [facility] 01/11/21 08:06 Sodium 134 L Potassium 4.3 Chloride 105 Carbon Dioxide 22 BUN 22 H Creatinine 0.79 Glucose 95 Calcium 9.0
[2021-01-11] MEDS: ATORVASTATIN 40 MG TAB PO SCH (20:00)
[2021-01-11] MEDS: LOSARTAN POTASSIUM 50 MG TAB PO SCH (20:00)
[2021-01-12] MEDS: LEVOTHYROXINE SODIUM 100 MCG TABLET PO SCH (05:31)
[2021-01-12 08:44] LABS: BUN Creatinine Ratio 24.8 (10-20); Calcium 8.9 mg/dl (8.5-10.1); Creatinine Clr Calc Pharmacy 44.6 ml/min; Est GFR (African American) 71.9 ml/min; Magnesium 1.7 mg/dl (1.8-2.4); Potassium 4.8 mmol/L (3.5-5.1)
[2021-01-12] MEDS: FERROUS SULFATE 325 MG TAB PO SCH (09:07)
[2021-01-12] MEDS: DOCUSATE SODIUM 100 MG CAP PO SCH (09:07)
[2021-01-12] MEDS: CYANOCOBALAMIN 500 MCG TABLET (VITAMIN B-12) PO SCH (09:07)
[2021-01-12] MEDS: MAGNESIUM OXIDE 400 MG TAB PO SCH ×2 (09:07→21:41)
[2021-01-12] MEDS: METOPROLOL SUCC 50MG EXT REL TAB PO SCH (09:18)
[2021-01-12] MEDS: AMOXICILLIN/CLAVULANATE 875 MG TAB PO SCH ×2 (09:18→17:06)
[2021-01-12] MEDS ORDERED: OXYMETAZOLINE 0.05% 30 ML BTL PRN (09:19)
--- NOTE | 2021-01-12 09:30 | Cardiology Progress Note ---
Date of Service January 12, 2021 Assessment & Plan (1) Diastolic heart failure with preserved ejection fraction: (2) Atrial fibrillation: (3) Pacemaker: (4) Epistaxis: Plan: The patient is in a persistent atrial fibrillation with adequately controlled heart rates backed up by her pacemaker. Euvolemic on exam. She is still off of anticoagulation, AC should not be restarted at this time. Return of epistaxis this am. Currently NPO for planned cauterization in the OR with ENT. From a cardiac standpoint she is stable. Patient not requiring diuretic therapy at this time, can consider Lasix 20 mg PO PRN at discharge. Admission and Anticipated Discharge Date Admission Date: January 03, 2021 Supervising Physician Co-Signing Physician Notes Patient seen and examined with VICKIE Beebe. Agree with findings and assessment as above. Stable from a cardiac standpoint. Obviously anticoagulation will not be restarted at this time. Continue current dose of metoprolol. Okay to discharge from a cardiac standpoint. Subjective 85-year-old female resting in bed. No acute distress. Over night epistaxis of the left nostril returned. Clot preset in the nostril. NPO for cauterization in the OR today. ENT on board. Denies any chest pain or shortness of breath. No palpitations, dizziness, syncope or near syncope. No orthopnea, PND, or increased lower extremity edema. No fever, chills, cough, hematochezia, melena, or hemoptysis. Past medical history Symptomatic atrial fibrillation/flutter, QTC prolongation with sotalol low, status post DCCV 11/2017-recurrence of A. fib was prescribed amiodarone, cardioversion complicated requiring intubation with only 50 mg of propofol. Amiodarone was discontinued 05/2018. 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 A+Ox3. HEENT: Normocephalic. Atraumatic. Conjunctiva and sclera clear. Clot in left nostril. NECK: No JVD Heart: Regular rate, irregular irregular rhythm. +1/6 systolic murmur. Lungs: Clear to auscultation. No wheezes, rhonchi, rales. Abdomen: Normal bowel sounds. Soft. Nontender. No masses or organomegaly. No abdominal bruits. Extremities: No edema. No clubbing or cyanosis. Results & Data ([facility]) Vital Signs (Past 12 Hours) Vital Signs Temp Pulse Pulse Pulse Resp BP Pulse Ox 01/12/21 08:10 36.4 C L 71 20 140/74 98 01/12/21 07:00 76 01/12/21 04:25 90 01/11/21 22:00 36.5 C 90 20 136/72 97
[2021-01-12] MEDS ORDERED: WATER, STERILE 10 ML, TETRACAINE 0.4 GM TOP ONE (10:00)
[2021-01-12] MEDS ORDERED: FUROSEMIDE 20 MG TAB PO PRN (10:18)
[2021-01-12] MEDS ORDERED: fentaNYL citrate 100 MCG/2 ML VIAL ONE (13:34)
[2021-01-12] MEDS ORDERED: MIDAZOLAM HCL 1 MG/ML 2ML VIAL ONE (13:34)
--- NOTE | 2021-01-12 13:44 | Anesthesiology Consultation ---
Date of Service January 12, 2021 Assessment & Plan Chart Review Chart Review: Acceptable Risk for Surgery and Patient NOT seen in Pre Admission Testing Consults Requested none ASA ASA4 Proposed Anesthesia Anesthesia Type: General Additional Comments: covid test negative History Surgery Operation Date: 01/12/21 09:40 Proposed Procedures p Endoscopic Cautery and Packing - Eliza Lepe MD Height/Weight Height: 5 ft 10 in Weight: 58 kg Allergies Allergy/AdvReac Type Severity Reaction Status Date / Time mirtazapine Allergy Unknown Rash Verified 01/03/21 17:52 lisinopril AdvReac Unknown Cough Verified 01/03/21 17:52 Medications Home Medications Medication Instructions Recorded Confirmed Last Taken levothyroxine 100 mcg tablet 100 mcg PO QAM 05/11/19 01/03/21 01/03/21 magnesium oxide 400 mg (241.3 mg 400 mg PO QAM 05/11/19 01/03/21 01/03/21 magnesium) tablet (MagOx) sennosides 8.6 mg-docusate sodium 1 tab PO BID 05/11/19 01/03/21 01/03/21 50 mg tablet (Senna Plus) atorvastatin 40 mg tablet 40 mg PO HS 02/05/20 01/03/21 01/02/21 calcium carbonate 500 mg (1,250 1 tab PO Q12H 02/05/20 01/03/21 01/03/21 mg)-vitamin D3 400 unit tablet (Calcium 500 + D) losartan 25 mg tablet 25 mg PO HS 02/05/20 01/03/21 01/02/21 metoprolol succinate 25 mg 75 mg PO QAM 02/05/20 01/03/21 01/03/21 tablet,extended release 24 hr polyethylene glycol 3350 17 17 g PO QAM 02/05/20 01/03/21 01/03/21 gram/dose oral powder mupirocin 2 % topical ointment 1 applic TOPICAL HS 03/06/20 01/03/21 01/02/21 lidocaine HCl 4 % topical cream 1 applic TOPICAL HS PRN 05/18/20 01/03/21 Unknown (Aspercreme (lidocaine HCl)) nystatin 100,000 unit/gram topical 1 applic TOPICAL BID PRN 05/18/20 01/03/21 07/21/20 cream tramadol 50 mg tablet 50 mg PO BID PRN 05/18/20 01/03/21 07/23/20 aspirin 81 mg tablet,delayed 81 mg PO QAM 07/21/20 01/03/21 01/03/21 release cyanocobalamin (vitamin B-12) 2,000 mcg PO QAM 07/21/20 01/03/21 01/03/21 1,000 mcg tablet (Vitamin B-12) acetaminophen 325 mg tablet 650 mg PO Q4 PRN MDD 3g 01/03/21 01/03/21 Unknown acetaminophen 325 mg tablet 650 mg PO Q4 PRN MDD 3g 01/03/21 01/03/21 Unknown ferrous sulfate 325 mg (65 mg 325 mg PO Q OTHER DAY 01/03/21 01/03/21 Unknown iron) tablet oxymetazoline 0.05 % nasal spray 2 spray INTRANASAL UD PRN 01/03/21 01/03/21 Unknown (Afrin (oxymetazoline)) Active Medications Generic Name Dose Route Start Last Admin Trade Name Freq PRN Reason Stop Dose Admin Acetaminophen 650 mg 01/04/21 00:12 01/09/21 15:18 Acetaminophen 325 Mg Tab PO 02/03/21 00:11 650 mg Q4 PRN Administration Pain, Mild Amoxicillin/Clavulanate Potassium 1 tab 01/08/21 08:00 01/12/21 09:18 Amoxicillin/Clavulanate 875 Mg Tab PO 01/18/21 07:59 1 tab BIDM DONNA Administration Protocol Aspirin 81 mg 01/04/21 09:00 01/07/21 08:56 Aspirin 81 Mg Ectab PO 02/03/21 08:59 81 mg QAM DONNA Administration Atorvastatin Calcium 40 mg 01/04/21 21:00 01/11/21 20:00 Atorvastatin 40 Mg Tab PO 02/03/21 20:59 40 mg HS DONNA Administration Cyanocobalamin 2,000 mcg 01/04/21 09:00 01/12/21 09:07 Cyanocobalamin 500 Mcg Tablet (Vitamin B-12) PO 02/03/21 08:59 Not Given QAM DONNA Docusate Sodium 100 mg 01/11/21 12:00 01/12/21 09:07 Docusate Sodium 100 Mg Cap PO 02/10/21 11:59 Not Given BID DONNA Enoxaparin Sodium 30 mg 01/04/21 09:00 01/07/21 08:56 Enoxaparin Inj 30 Mg/0.3 Ml Syr SQ 02/03/21 08:59 30 mg QAM DONNA Administration Ferrous Sulfate 325 mg 01/04/21 09:00 01/12/21 09:07 Ferrous Sulfate 325 Mg Tab PO 02/03/21 08:59 Not Given Q2D DONNA Levothyroxine Sodium 100 mcg 01/04/21 06:30 01/12/21 05:31 Levothyroxine Sodium 100 Mcg Tablet PO 02/03/21 06:29 100 mcg DAILYBB DONNA Administration Losartan Potassium 50 mg 01/04/21 01:00 01/11/21 20:00 Losartan Potassium 50 Mg Tab PO 02/03/21 00:59 50 mg HS DONNA Administration Magnesium Oxide 400 mg 01/09/21 13:00 01/12/21 09:07 Magnesium Oxide 400 Mg Tab PO 02/08/21 12:59 Not Given BID DONNA Metoprolol Succinate 100 mg 01/07/21 09:00 01/12/21 09:18 Metoprolol Succ 50mg Ext Rel Tab PO 02/06/21 08:59 100 mg QAM DONNA Administration Past Medical History Medical History Anxiety Atrial fibrillation No AC secondary to history of bleeding issues (traumatic brain hemorrhage/intra- abdominal hemorrhage) Chronic hyponatremia Constipation COVID-19 Fracture of neck of scapula HTN (hypertension) Hyperlipidemia Hypomagnesemia Hypothyroidism Osteoarthritis Sick sinus syndrome S/p pacemaker TIA (transient ischemic attack) Possible in December 08, 2019 TIA 05/2019 per records. Last seen by neuro= 01/08/20- follow up PRN. Continue ASA. Exercise / Class Metabolic Activity III < 4 Walking/Shop/Light housework Past Family History Family History Other Cancer Past Surgical History Surgical History H/O colonoscopy History of pacemaker Past Anesthesia History No Hx of Anesthesia Complications and No Family Hx of Anesthesia Complications History of PONV No Hx of PONV and No Hx of Motion Sickness Social History Smoking Status: Never smoker Hx Alcohol Use: No Hx Substance Use: No Physical Exam Vital Signs Last Vital Signs Temp 36.8 C 01/12/21 11:33 Pulse 78 01/12/21 11:33 Resp 18 01/12/21 11:33 BP 127/76 01/12/21 11:33 Pulse Ox 97 01/12/21 11:33 Testing Laboratory Results 01/11/21 08:06 01/12/21 07:08 Urine Color Yellow 01/03/21 18:30 Urine Appearance Clear (Clear) 01/03/21 18:30 Urine pH 7.0 (4.5-7.5) 01/03/21 18:30 Ur Specific [place] 1.012 (1.000-1.030) 01/03/21 18:30 Urine Protein Negative (Negative) 01/03/21 18:30 Urine Glucose (UA) Negative (Negative) 01/03/21 18:30 Urine Ketones Negative (Negative) 01/03/21 18:30 Urine Nitrite Negative (Negative) 01/03/21 18:30 Ur Leukocyte Esterase 1+ (Negative) H 01/03/21 18:30 Urine WBC (Auto) 5-10 /hpf (0-5) H 01/03/21 18:30 Urine RBC (Auto) 0-4 /hpf (0-4) 01/03/21 18:30 U Hyaline Cast (Auto) 1-5 /lpf (0-5) 01/03/21 18:30 U Epithel Cells (Auto) >30 /lpf (0-5) H 01/03/21 18:30 Urine Bacteria (Auto) 1+ (Negative) H 01/03/21 18:30 01/03/21 18:21 Aerobic Blood Culture - Final Blood No growth in Aerobic bottle after 5 days. Anaerobic Blood Culture - Final No growth in Anaerobic bottle after 5 days. 01/03/21 18:29 Aerobic Blood Culture - Final Blood No growth in Aerobic bottle after 5 days. Anaerobic Blood Culture - Final No growth in Anaerobic bottle after 5 days. 01/03/21 18:30 Urine Culture - Final Urine,Clean Catch Klebsiella pneumoniae Electrocardiogram Date: 01/04/21 Findings: + NSST changes and + AFIB @ (at 88;) Chest X-Ray Date: 01/07/21 Findings: + atelectasis (left base), + cardiomegaly, + pulmonary vascular congestion and + pleural effusion (moderate) Echocardiogram Date: 01/04/21 EF: 60% LV Function: normal RWMA: + none Other Findings: + atrial enlargement (biatrial) Valvular Disease: + MR (mod.) and + pertinent finding (AV-mod. sclerosis;) TR-mod. increased RV sys. pressure Other Testing 12/08/19-Neck CTA-30-40% B/L ICA's
[2021-01-12] MEDS ORDERED: BACITRACIN OINT 15 GM TUBE ONE (13:57)
[2021-01-12] MEDS ORDERED: LIDOCAINE 2%/EPINEPHRINE 1:100,000 20ML ONE (13:58)
[2021-01-12] MEDS ORDERED: GELATIN SPONGE 12-7MM ONE (13:58)
[2021-01-12] MEDS ORDERED: EPINEPHrine INJ 1 MG/ML AMP ONE (13:58)
[2021-01-12] MEDS ORDERED: ePHEDrine sulfate 50 MG/ML AMP IV PRN (14:05)
[2021-01-12] MEDS ORDERED: ATROPINE SULFATE 0.1 MG/ML 10ML SYR IV PRN (14:05)
[2021-01-12] MEDS ORDERED: LIDOCAINE 4% INH SOLN 4 ML BTL ONE (14:08)
[2021-01-12] MEDS ORDERED: GELATIN SPONGE SZ 100 ONE (14:08)
--- NOTE | 2021-01-12 14:19 | History & Physical Bridge Note ---
Date of Service January 12, 2021 History & Physical Bridge Note I have examined the patient, reviewed the History & Physical and in the interval since the performance of the History & Physical I have noted the following changes of clinical significance: no changes noted
[2021-01-12] MEDS ORDERED: ONDANSETRON INJ 2 MG/ML 2 ML VIAL ONE (14:32)
[2021-01-12] MEDS ORDERED: PROPOFOL IV EMULSION 10 MG/ML 20 ML VIAL IV ONE (14:32)
--- NOTE | 2021-01-12 14:43 | Operative Report ---
PG Post Operative Report Pre & Post Diagnosis Operation Date: 01/12/21 09:40 Pre-Op Diagnosis: Epistaxis Post-Op Diagnosis: Epistaxis I identified the patient and participated in the time-out.: Yes Procedure Operation Date: 01/12/21 09:40 Actual Procedures p Endoscopic Cautery and Packing(Not Applicable) - Eliza Lepe MD Surgeon Eliza Lepe MD Photo Checker And Assembler None Estimated Blood Loss 1 Findings Consistent with Post-Op Diagnosis Bleeding sites left septum and also left inferior turbinate Specimens None Anesthesia Type MAC Indications Epistaxis restarted this a.m. Description of Procedure She was brought to the operating room, properly identified, prepped and draped in the usual sterile manner after sedation. The nose was decongested using topical Xylocaine/epinephrine. The bleeding site was left mid inferior turbinate posteriorly and also left anterior end of the inferior turbinate. There was also another spot left mid septum. All the sites were cauterized using the suction cautery. Packing was started posteriorly with Gelfoam 3 layers at the posterior choanae. This was followed by 5 cc of FloSeal. Another strip of Gelfoam was placed anteriorly to seal in the FloSeal. She tolerated the procedure well and was taken recovery area in satisfactory condition. I attest to the content of the Intraoperative Record and any orders documented therein. Any exceptions are noted below.
[2021-01-12] MEDS ORDERED: FLOSEAL HEMOSTATIC MATRIX 5ML TOP ONE (14:45)
--- NOTE | 2021-01-12 15:14 | Anesthesiology Progress Note ---
Date of Service January 12, 2021 Anesthesia Post Procedure Vital Signs Vital Signs: Temp Pulse Pulse Pulse Pulse Resp BP 01/12/21 15:00 87 20 103/78 01/12/21 14:50 91 H 20 108/63 01/12/21 14:44 36.2 C L 85 16 135/66 01/12/21 13:48 36.5 C 80 20 156/96 H 01/12/21 11:33 36.8 C 78 18 127/76 01/12/21 08:10 36.4 C L 71 20 140/74 01/12/21 07:00 76 01/12/21 04:25 90 01/11/21 22:00 36.5 C 90 20 136/72 01/11/21 19:00 36.4 C L 75 20 114/73 01/11/21 15:33 87 Pulse Ox 01/12/21 15:00 96 01/12/21 14:50 94 01/12/21 14:44 95 01/12/21 13:48 97 01/12/21 11:33 97 01/12/21 08:10 98 01/12/21 07:00 01/12/21 04:25 01/11/21 22:00 97 01/11/21 19:00 96 01/11/21 15:33 Transfer of Care Handoff Completed per policy Notes Mental Status: alert / awake / arousable Patient Amnestic to Procedure: Yes Nausea / Vomiting: adequately controlled Pain: adequately controlled Airway Patency, RR, SpO2: stable & adequate BP & HR: stable & adequate Hydration State: stable & adequate Anesthetic Complications: no major complications apparent
--- NOTE | 2021-01-12 17:50 | Hospitalist Progress Note ---
Date of Service January 12, 2021 Assessment & Plan (1) Decompensated heart failure: Plan: Acute diastolic heart failure Likely due to uncontrolled BP --ECHO:LV is normal in size. Moderate concentric LVH. Apical wall motion abnormality may reflect pacemaker activation. No regional wall motion abnormalities noted. EF 60 to 65%. There is biatrial enlargement. Aortic valve sclerosis moderate, without significant aortic valvular stenosis. Trace aortic regurg. There is moderate mitral regurg. There is mild to moderate tricuspid regurg. RV systolic pressure is elevated at 30 to 40 mmHg. Moderate sized left pleural effusion. -Received IV diuretic Euvolemic currently Appreciate cardiology input Monitor I's and O's, daily weight Lasix PRN upon discharge H/O Sick sinus syndrome S/P PPM off Coumadin secondary to traumatic intracranial hemorrhage HTN Losartan increased to 50 mg Metoprolol increased to 100mg daily Epistaxis S/P Endoscopic Cautery and Packing by POD#0 Appreciate ENT Input Continue Augmentin Lovenox and aspirin held UTI Urine culture positive for Klebsiella Was on P.o. Keflex Switched to Augmentin due to nasal packing H/O CVA Aspirin held due to epistaxis Hypothyroidism Continue Levothyroxine Prediabetes hemoglobin A1c of 5.8 2019 DVT pPx: Lovenox held due to epistaxis Code Status Full code Admission and Anticipated Discharge Date Admission Date: January 03, 2021 Subjective Patient is seen and examined at bedside Patient had recurrence of Epistaxis earlier today Updated patient's daughter over the phone Denies chest pain, shortness of breath, dizziness Review of Systems Review of Systems: All systems reviewed & are unremarkable except as noted in Subjective Physical Exam Physical Exam: Physical Exam: Vitals signs as noted above General Appearance:Moderately built and nourished, no apparent distress Head: normocephalic, Atraumatic Eyes: normal inspection, EOMI Neck: supple, Trachea midline Respiratory/Chest: Decreased breath sounds, CTA Cardiovascular: Irregularly irregular, +murmur Abdomen/GI:Soft, Non tender, Bowel sounds present Extremities/Musculoskeletal:normal inspection, no edema Neurologic/Psych:Alert, awake, grossly no focal neurological deficits, + hearing impairment Skin: normal color, warm Results & Data Results & Data ([facility]) Vital Signs (Past 12 Hours) Vital Signs Temp Pulse Pulse Pulse Resp BP Pulse Ox 01/12/21 16:00 83 01/12/21 15:28 36.3 C L 88 18 133/84 95 01/12/21 15:10 36.3 C L 81 22 114/60 97 01/12/21 15:00 87 20 103/78 96 01/12/21 14:50 91 H 20 108/63 94 01/12/21 14:44 36.2 C L 85 16 135/66 95 01/12/21 13:48 36.5 C 80 20 156/96 H 97 01/12/21 11:33 36.8 C 78 18 127/76 97 01/12/21 08:10 36.4 C L 71 20 140/74 98 01/12/21 07:00 76 Laboratory Results BMP 01/12/21 07:08 Sodium 134 L Potassium 4.8 Chloride 104 Carbon Dioxide 26 BUN 21 H Creatinine 0.86 Glucose 82 Calcium 8.9
[2021-01-12] MEDS: LOSARTAN POTASSIUM 50 MG TAB PO SCH (21:41)
[2021-01-12] MEDS: ATORVASTATIN 40 MG TAB PO SCH (21:41)
[2021-01-13] MEDS: ACETAMINOPHEN 325 MG TAB PO PRN (02:01)
[2021-01-13] MEDS: LEVOTHYROXINE SODIUM 100 MCG TABLET PO SCH (05:49)
--- NOTE | 2021-01-13 07:31 | Cardiology Progress Note ---
Date of Service January 13, 2021 Assessment & Plan (1) Diastolic heart failure with preserved ejection fraction: (2) Atrial fibrillation: (3) Pacemaker: (4) Epistaxis: Plan: The patient is in a persistent atrial fibrillation with adequately controlled heart rates backed up by her pacemaker. Volume status well compensated. She remains off anticoagulation, AC should not be restarted at this time. S/p Cauterization of left nostril yesterday, no return of epistaxis over night into this am. From a cardiac standpoint she is stable. Patient not requiring diuretic therapy at this time, can consider Lasix 20 mg PO PRN at discharge. Okay to discharge from a cardiac standpoint. Admission and Anticipated Discharge Date Admission Date: January 03, 2021 Supervising Physician Co-Signing Physician Notes Patient seen and examined with VICKIE Beebe. Agree with findings and assessment as above. Stable from a cardiac standpoint. Obviously anticoagulation will not be restarted at this time. Continue current dose of metoprolol. Okay to discharge from a cardiac standpoint. Subjective 85-year-old female resting in the chair at the side of the bed. No acute distress. Underwent left nostral cauterization, packing was removed by patient over night. No signs of bleeding over night or this am. Denies any chest pain or shortness of breath. No palpitations, dizziness, syncope or near syncope. No orthopnea, PND, or increased lower extremity edema. No fever, chills, cough, hematochezia, melena, or hemoptysis. Tele monitor: Afib/paced 60-70s over night, PVCs Past medical history Symptomatic atrial fibrillation/flutter, QTC prolongation with sotalol low, status post DCCV 11/2017-recurrence of A. fib was prescribed amiodarone, cardioversion complicated requiring intubation with only 50 mg of propofol. Amiodarone was discontinued 05/2018. 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 A+Ox3. HEENT: Normocephalic. Atraumatic. Conjunctiva and sclera clear. NECK: No JVD Heart: Regular rate, irregular irregular rhythm. +1/6 systolic murmur. Lungs: Clear to auscultation. No wheezes, rhonchi, rales. Abdomen: Normal bowel sounds. Soft. Nontender. No masses or organomegaly. No abdominal bruits. Extremities: No edema. No clubbing or cyanosis. Results & Data ([facility]) Vital Signs (Past 12 Hours) Vital Signs Temp Pulse Pulse Resp BP Pulse Ox 01/13/21 03:00 36.3 C L 69 18 124/88 97 01/12/21 23:11 76 01/12/21 22:00 36 C L 85 20 130/83 96
[2021-01-13 09:02] LABS: Hematocrit (blood only) 44.6 % (37-47); Hemoglobin 14.5 g/dL (12.0-16.0)
[2021-01-13] MEDS: AMOXICILLIN/CLAVULANATE 875 MG TAB PO SCH ×2 (09:25→16:43)
[2021-01-13] MEDS: CYANOCOBALAMIN 500 MCG TABLET (VITAMIN B-12) PO SCH (09:25)
[2021-01-13] MEDS: METOPROLOL SUCC 50MG EXT REL TAB PO SCH (09:25)
[2021-01-13] MEDS: MAGNESIUM OXIDE 400 MG TAB PO SCH ×2 (09:26→21:34)
[2021-01-13 09:32] LABS: BUN Creatinine Ratio 23.8 (10-20); Calcium 9.2 mg/dl (8.5-10.1); Creatinine Clr Calc Pharmacy 38.9 ml/min; Est GFR (African American) 61.4 ml/min; Magnesium 2.1 mg/dl (1.8-2.4); Potassium 4.3 mmol/L (3.5-5.1)
--- NOTE | 2021-01-13 15:09 | Hospitalist Progress Note ---
Date of Service January 13, 2021 Assessment & Plan (1) Decompensated heart failure: Plan: Acute diastolic heart failure Likely due to uncontrolled BP --ECHO:LV is normal in size. Moderate concentric LVH. Apical wall motion abnormality may reflect pacemaker activation. No regional wall motion abnormalities noted. EF 60 to 65%. There is biatrial enlargement. Aortic valve sclerosis moderate, without significant aortic valvular stenosis. Trace aortic regurg. There is moderate mitral regurg. There is mild to moderate tricuspid regurg. RV systolic pressure is elevated at 30 to 40 mmHg. Moderate sized left pleural effusion. -Received IV diuretic Euvolemic currently Appreciate cardiology input Monitor I's and O's, daily weight Lasix PRN upon discharge Needs follow up with Cardiology upon discharge Plan to discharge to [place] likely tomorrow H/O Sick sinus syndrome S/P PPM off Coumadin secondary to traumatic intracranial hemorrhage HTN Losartan increased to 50 mg Metoprolol increased to 100mg daily Epistaxis S/P Endoscopic Cautery and Packing by POD#1 Appreciate ENT Input Continue Augmentin Lovenox and aspirin held for now OK to resume low dose Aspirin as per ENT if no recurrence of bleeding UTI Urine culture positive for Klebsiella Was on P.o. Keflex Switched to Augmentin due to nasal packing H/O CVA Resume Aspirin as able Hypothyroidism Continue Levothyroxine Prediabetes hemoglobin A1c of 5.8 2019 DVT Px: Lovenox held due to epistaxis SCD Code Status Full code Admission and Anticipated Discharge Date Admission Date: January 03, 2021 Subjective Patient is seen and examined at bedside Doing well today, sitting in chair during my encounter No recurrence of Epistaxis Discussed with ENT today Denies chest pain, shortness of breath, dizziness Hb stable Review of Systems Review of Systems: All systems reviewed & are unremarkable except as noted in Subjective Physical Exam Physical Exam: Physical Exam: Vitals signs as noted above General Appearance:Moderately built and nourished, no apparent distress Head: normocephalic, Atraumatic Eyes: normal inspection, EOMI Neck: supple, Trachea midline Respiratory/Chest: Decreased breath sounds, CTA Cardiovascular: Irregularly irregular, +murmur Abdomen/GI:Soft, Non tender, Bowel sounds present Extremities/Musculoskeletal:normal inspection, no edema Neurologic/Psych:Alert, awake, grossly no focal neurological deficits, + hearing impairment Skin: normal color, warm Results & Data Results & Data ([place]) Vital Signs (Past 12 Hours) Vital Signs Temp Pulse Pulse Resp BP BP Pulse Ox 01/13/21 11:56 36.7 C 58 L 18 93/58 L 97 01/13/21 08:26 36.6 C 74 18 118/79 97 01/13/21 07:00 65 Laboratory Results Short CBC 01/13/21 Range/Units 08:12 Hgb 14.5 (12.0-16.0) g/dL Hct 44.6 (37-47) % BMP 01/13/21 08:12 Sodium 133 L Potassium 4.3 Chloride 102 Carbon Dioxide 26 BUN 23 H Creatinine 0.98 Glucose 90 Calcium 9.2
[2021-01-13] MEDS: LOSARTAN POTASSIUM 50 MG TAB PO SCH (21:33)
[2021-01-13] MEDS: ATORVASTATIN 40 MG TAB PO SCH (21:34)
[2021-01-14] MEDS: LEVOTHYROXINE SODIUM 100 MCG TABLET PO SCH (06:16)
[2021-01-14 06:54] LABS: Hemoglobin 13.6 g/dL (12.0-16.0)
[2021-01-14] MEDS: CYANOCOBALAMIN 500 MCG TABLET (VITAMIN B-12) PO SCH (08:16)
[2021-01-14] MEDS: AMOXICILLIN/CLAVULANATE 875 MG TAB PO SCH (08:16)
[2021-01-14] MEDS: FERROUS SULFATE 325 MG TAB PO SCH (08:16)
[2021-01-14] MEDS: MAGNESIUM OXIDE 400 MG TAB PO SCH (08:18)
[2021-01-14] MEDS: METOPROLOL SUCC 50MG EXT REL TAB PO SCH (08:18)
--- NOTE | 2021-01-14 11:35 | Hospitalist Progress Note ---
Date of Service January 14, 2021 Assessment & Plan (1) Decompensated heart failure: Plan: Acute diastolic heart failure Likely due to uncontrolled BP --ECHO:LV is normal in size. Moderate concentric LVH. Apical wall motion abnormality may reflect pacemaker activation. No regional wall motion abnormalities noted. EF 60 to 65%. There is biatrial enlargement. Aortic valve sclerosis moderate, without significant aortic valvular stenosis. Trace aortic regurg. There is moderate mitral regurg. There is mild to moderate tricuspid regurg. RV systolic pressure is elevated at 30 to 40 mmHg. Moderate sized left pleural effusion. -Received IV diuretic Euvolemic currently Appreciate cardiology input Monitor I's and O's, daily weight Lasix PRN upon discharge Needs follow up with Cardiology upon discharge Plan to discharge to [place] today H/O Sick sinus syndrome S/P PPM off Coumadin secondary to traumatic intracranial hemorrhage HTN Losartan increased to 50 mg Metoprolol increased to 100mg daily Epistaxis S/P Endoscopic Cautery and Packing by POD#2 Appreciate ENT Input Continue Augmentin Lovenox and aspirin held during hospital stay OK to resume low dose Aspirin as per ENT if no recurrence of bleeding UTI Urine culture positive for Klebsiella Was on P.o. Keflex Switched to Augmentin due to nasal packing H/O CVA Resume Aspirin upon discharge Hypothyroidism Continue Levothyroxine Prediabetes hemoglobin A1c of 5.8 2019 DVT Px: Lovenox held due to epistaxis SCD Code Status Full code Admission and Anticipated Discharge Date Admission Date: January 03, 2021 Subjective Patient is seen and examined at bedside No new complaints No recurrence of bleeding Denies chest pain, shortness of breath, dizziness Plan to discharge to rehab facility today Review of Systems Review of Systems: All systems reviewed & are unremarkable except as noted in Subjective Physical Exam Physical Exam: Physical Exam: Vitals signs as noted above General Appearance:Moderately built and nourished, no apparent distress Head: normocephalic, Atraumatic Eyes: normal inspection, EOMI Neck: supple, Trachea midline Respiratory/Chest: Decreased breath sounds, CTA Cardiovascular: Irregularly irregular, +murmur Abdomen/GI:Soft, Non tender, Bowel sounds present Extremities/Musculoskeletal:normal inspection, no edema Neurologic/Psych:Alert, awake, grossly no focal neurological deficits, + hearing impairment Skin: normal color, warm Results & Data Results & Data ([facility]) Vital Signs (Past 12 Hours) Vital Signs Temp Pulse Pulse Resp BP BP Pulse Ox 01/14/21 11:23 36.6 C 102 H 20 121/75 93/58 L 96 01/14/21 08:08 36.6 C 102 H 20 121/75 96 01/14/21 07:33 72 01/14/21 03:00 36.4 C L 74 18 117/79 97 01/14/21 00:15 60 Laboratory Results Short CBC 01/14/21 Range/Units 06:32 Hgb 13.6 (12.0-16.0) g/dL Hct 41.0 (37-47) %
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
--- NOTE | 2021-01-14 13:26 | Cardiology Progress Note ---
Date of Service January 14, 2021 Assessment & Plan (1) Diastolic heart failure with preserved ejection fraction: (2) Atrial fibrillation: (3) Pacemaker: (4) Epistaxis: Plan: The patient is in a persistent atrial fibrillation with adequately controlled heart rates backed up by her pacemaker. Volume status well compensated. She remains off anticoagulation, AC should not be restarted at this time. S/p Cauterization of left nostril without recurrence of epistaxis. From a cardiac standpoint she is stable. Patient not requiring diuretic therapy at this time, can consider Lasix 20 mg PO PRN at discharge. Okay to discharge from a cardiac standpoint. Admission and Anticipated Discharge Date Admission Date: January 03, 2021 Subjective Patient seen and examined, upright in bed eating lunch, chart reviewed. Denies any cardiac complaints of chest pain, shortness of breath, palpitations, lightheadedness, dizziness or syncope. Telemetry reviewed: Atrial fibrillation rate controlled. Review of Systems Review of Systems: All systems reviewed & are unremarkable except as noted in HPI & below Physical Exam Physical Exam: General: Awake, alert and oriented x 3. No acute distress. HEENT: Normocephalic, atraumatic. Pupils equal, round and reactive to light and accommodation. Extraocular muscles are intact. Anicteric sclera. Moist mucous membranes. Neck: No JVD. No bruit. Cardiovascular: irregularly irregular, unable to appreciate murmur, rub or gallop. Pulmonary: Clear to auscultation bilaterally. No rales, rhonchi, or wheezing. Abdomen: Bowel sounds x 4, soft. No rebound, guarding or tenderness. No organomegaly. Extremities: No clubbing, cyanosis or edema. +2 pedal pulses bilaterally. Skin: Warm and dry. Results & Data ([facility]) Vital Signs (Past 12 Hours) Vital Signs Temp Pulse Pulse Resp BP BP Pulse Ox 01/14/21 11:57 36.5 C 77 20 112/76 96 01/14/21 11:23 36.6 C 102 H 20 121/75 93/58 L 96 01/14/21 08:08 36.6 C 102 H 20 121/75 96 01/14/21 07:33 72 01/14/21 03:00 36.4 C L 74 18 117/79 97
== END 2021-01-14 14:07 | disposition home or self-care (01) | DRG 291 ==
LOC: ED 17:22 → SUATTDRO 22:07 → 2E 22:07 → 2W 01-07 14:51

== ENCOUNTER 2022-10-02 16:28 | Observation (INO) ==
[2022-10-02] MEDS ORDERED: FUROSEMIDE 40 MG/4 ML VIAL IV ONE (17:14)
--- NOTE | 2022-10-02 17:14 | Emergency Department Note ---
Impression & Plan CHF (congestive heart failure), Pleural effusion ED Provider Note NAME: NANCY SCHMIDT AGE: 87 SEX: F : 1935 ARRIVES VIA: Ambulance INFORMANT: Patient, ED PROVIDER(S): Dontae Martinez DO CHIEF COMPLAINT: Difficulty breathing HPI: The patient is an 87-year-old female who presented to from the custodial for an evaluation of difficulty breathing. The patient has had ongoing difficulty breathing throughout the course of the day. She states that earlier in the day she did have some chest pain. She denies having any chest pain at this time. She denies having any cough. She has had no fever. She denies having any hemoptysis. She does state that she has lower extremity edema which is not new for her. The patient did not see her family doctor but was referred to the emergency department by the nursing staff at the [facility]-skilled nursing. ROS: See above HPI for pertinent positives & negatives. A total of 10 systems reviewed and were otherwise negative. PAST MEDICAL HISTORY: See Below PAST SURGICAL HISTORY: See Below FAMILY HISTORY: See Below SOCIAL HISTORY: See Below HOME MEDICATIONS: See Below ALLERGIES: See Below VITALS: See Below PHYSICAL EXAMINATION: GENERAL: Patient is awake alert in no acute distress patient is resting comfortably and showing no signs of anxiety EYES: The conjunctivae are clear. The pupils are round and reactive. EARS, NOSE, MOUTH AND THROAT: The nose is without any evidence of any deformity. Mucous membranes are moist. Tongue is midline. NECK: The neck is nontender and supple. JVD was noted. RESPIRATORY: Diminished breath sounds are noted throughout. There were rales at both bases. CARDIOVASCULAR: Tachycardic and irregular heart sounds were noted to auscultation. There is no definite murmur. GASTROINTESTINAL: The abdomen is soft. Abdomen is nontender. MUSCULOSKELETAL/EXTREMITIES: There is no evidence of gross deformity full range of motion is noted in the hips and shoulders. SKIN: Bilateral pedal edema was noted. Skin is warm and dry. NEUROLOGIC: Patient is awake alert and oriented x3 MEDICAL DECISION MAKING: The patient is an 87-year-old female who presented to the emergency department for an evaluation of difficulty breathing. The patient does have a history of CHF. She also has a large pleural effusion. The patient was treated with Lasix in the emergency department. I discussed the patient's laboratory and radiographic studies with her. Given her age and comorbidities I am unsure if the patient would be able to acquire proper follow-up. For this reason I will [facility] have agreed to evaluate the patient in the emergency department for further management and disposition. Triage Nursing notes reviewed. Prior medical records reviewed Vital Signs: reviewed and remarkable for hypoxia with exertion. Differential diagnosis: Reactive airway disease, pneumonia, pneumothorax, COPD, CHF, infections, cardiac ischemia, pulmonary embolism, musculoskeletal, gastrointestinal, as well as other pathologies. ER treatment provided: See below Diagnostics interpreted by me: ECG: EKG was obtained in the emergency department. My interpretation is atrial fibrillation at 104 bpm. There were no PVCs noted. Nonspecific ST depressions were noted. This was mostly in the lateral leads. This was compared to a trac ing from January 15, 2021. No specific changes were noted. Cardiac Monitoring: An order was placed for continuous cardiac monitoring. The monitor shows a rate of 76 bpm with atrial fibrillation. Laboratory studies: As stated above and show below. Imaging studies: See below. Radiographic imaging was reviewed by myself Consultation(s): I discussed this case with Dr. Mason who [facility] He will evaluate the patient in the emergency department. Past Med/Surg History Medical History Acute heart failure with preserved ejection fraction (HFpEF) Anxiety Atrial fibrillation No AC secondary to history of bleeding issues (traumatic brain hemorrhage/intra- abdominal hemorrhage) Atrial fibrillation Chronic hyponatremia Constipation COVID-19 Decompensated heart failure Diastolic heart failure with preserved ejection fraction Fracture of neck of scapula HTN (hypertension) Hyperlipidemia Hypomagnesemia Hypothyroidism Metabolic encephalopathy Osteoarthritis Persistent atrial fibrillation Sick sinus syndrome S/p pacemaker Stroke TIA (transient ischemic attack) Possible in December 08, 2019 TIA 05/2019 per records. Last seen by neuro= 01/08/20- follow up PRN. Continue ASA. 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 [employer] Arrays Required: No Beliefs That Will Affect Care: None marital status: Current Living Situation: Spouse and Personal Care Facility Current Living Situation Comment: [facility] current occupational status: retired Feels Safe at Home: Yes Assistive Devices: Glasses Allergies Allergies Allergy/AdvReac Type Severity Reaction Status Date / Time latex Allergy Unknown Unknown Verified 10/02/22 19:48 mirtazapine Allergy Unknown Rash Verified 10/02/22 19:47 lisinopril AdvReac Unknown Cough Verified 10/02/22 19:47 Home Meds Home Medications Medication Instructions Recorded Confirmed magnesium oxide 400 mg (241.3 mg 400 mg PO QAM 05/11/19 10/02/22 magnesium) tablet (MagOx) atorvastatin 40 mg tablet 40 mg PO HS 02/05/20 10/02/22 calcium carbonate 500 mg-vitamin 1 tab PO Q12H 02/05/20 10/02/22 D3 10 mcg (400 unit) tablet (Calcium 500 + D) polyethylene glycol 3350 17 17 g PO DAILY PRN Constipation 02/05/20 10/02/22 gram/dose oral powder lidocaine HCl 4 % topical cream 1 applic topical HS PRN Pain 05/18/20 10/02/22 (Aspercreme (lidocaine HCl)) aspirin 81 mg tablet,delayed 81 mg PO QAM 07/21/20 10/02/22 release cyanocobalamin (vitamin B-12) 2,000 mcg PO QAM 07/21/20 10/02/22 1,000 mcg tablet (Vitamin B-12) acetaminophen 325 mg tablet 650 mg PO Q6 PRN Fever Or Pain 01/03/21 10/02/22 acetaminophen 325 mg tablet 650 mg PO Q6 PRN Pain, Mild 01/03/21 10/02/22 ferrous sulfate 325 mg (65 mg 325 mg PO Q OTHER DAY 01/03/21 10/02/22 iron) tablet oxymetazoline 0.05 % nasal spray 2 spray intranasal UD PRN nose 01/03/21 10/02/22 (Afrin (oxymetazoline)) bleeds fluticasone propionate 50 2 spray intranasal HS 10/02/22 10/02/22 mcg/actuation nasal spray,suspension furosemide 20 mg tablet 20 mg PO .DAILY AT 2 PM 10/02/22 10/02/22 furosemide 40 mg tablet 40 mg PO QAM 10/02/22 10/02/22 gabapentin 300 mg capsule 300 mg PO HS 10/02/22 10/02/22 levothyroxine 75 mcg tablet 75 mcg PO QAM 10/02/22 10/02/22 lidocaine 5 % topical patch 1 patch topical DAILY PRN Pain 10/02/22 10/02/22 sennosides 8.6 mg-docusate sodium 1 tab-cap PO BID PRN Constipation 10/02/22 10/02/22 50 mg tablet (Senokot-S) Previous Rx's Medication Instructions Recorded metoprolol succinate 50 mg 100 mg PO QAM #60 tabs 01/14/21 tablet,extended release 24 hr Results & Data (ED) Vital Signs Vital Signs - 24 hr 10/02/22 16:33 10/02/22 16:33 10/02/22 16:33 Temperature 36.3 C L Temperature Source Oral Pulse Rate 97 H Pulse Rate [Right Apical] 97 H Pulse Rate from SpO2 Sensor Respiratory Rate 18 18 Respiratory Effort / Characteristics Non-Labored Spontaneous Non-Labored Spontaneous Respiratory Depth Normal Normal Respiratory Pattern Regular Blood Pressure 166/124 H Blood Pressure [Right Arm] 166/124 H Blood Pressure Mean 138 Blood Pressure Mean [Right Arm] 138 Pulse Oximetry 95 95 95 Oxygen Delivery Method Room Air Room Air Room Air Sepsis Recent Fever Within 48 Hours No Sepsis New/Unexplained Change in Mental Status No Sepsis Action Taken by Nursing No Action Required 10/02/22 16:42 10/02/22 17:11 10/02/22 17:24 Temperature Temperature Source Pulse Rate 90 88 92 H Pulse Rate [Right Apical] Pulse Rate from SpO2 Sensor 86 Respiratory Rate 18 22 Respiratory Effort / Characteristics Respiratory Depth Respiratory Pattern Blood Pressure 170/108 H Blood Pressure [Right Arm] Blood Pressure Mean 128 Blood Pressure Mean [Right Arm] Pulse Oximetry 95 93 Oxygen Delivery Method Room Air Room Air Sepsis Recent Fever Within 48 Hours Sepsis New/Unexplained Change in Mental Status Sepsis Action Taken by Nursing 10/02/22 18:00 10/02/22 19:19 10/02/22 19:34 Temperature Temperature Source Pulse Rate 82 Pulse Rate [Right Apical] 90 Pulse Rate from SpO2 Sensor 62 Respiratory Rate 24 16 Respiratory Effort / Characteristics Non-Labored Respiratory Depth Normal Respiratory Pattern Blood Pressure 157/97 H Blood Pressure [Right Arm] 159/98 H Blood Pressure Mean 117 Blood Pressure Mean [Right Arm] 118 Pulse Oximetry 92 94 94 Oxygen Delivery Method Room Air Room Air Room Air Sepsis Recent Fever Within 48 Hours Sepsis New/Unexplained Change in Mental Status Sepsis Action Taken by Nursing 10/02/22 20:39 10/02/22 20:48 10/02/22 21:09 Temperature Temperature Source Pulse Rate 81 Pulse Rate [Right Apical] 77 73 Pulse Rate from SpO2 Sensor Respiratory Rate 18 18 Respiratory Effort / Characteristics Non-Labored Respiratory Depth Normal Respiratory Pattern Blood Pressure Blood Pressure [Right Arm] 129/98 140/84 Blood Pressure Mean Blood Pressure Mean [Right Arm] 108 102 Pulse Oximetry 92 93 Oxygen Delivery Method Room Air Room Air Sepsis Recent Fever Within 48 Hours Sepsis New/Unexplained Change in Mental Status Sepsis Action Taken by Nursing 10/02/22 21:00 10/02/22 21:00 10/02/22 21:30 Temperature Temperature Source Pulse Rate 75 76 Pulse Rate [Right Apical] Pulse Rate from SpO2 Sensor Respiratory Rate 20 20 Respiratory Effort / Characteristics Respiratory Depth Respiratory Pattern Blood Pressure 140/84 Blood Pressure [Right Arm] Blood Pressure Mean 102 Blood Pressure Mean [Right Arm] Pulse Oximetry 92 96 Oxygen Delivery Method Sepsis Recent Fever Within 48 Hours Sepsis New/Unexplained Change in Mental Status Sepsis Action Taken by [facility] Medications Current Medication List: was personally reviewed by me Laboratory Data Attestation: I reviewed the patient's lab results. 10/02/22 17:15 10/02/22 17:15 Lab Results 10/02/22 10/02/22 10/02/22 Range/Units 17:14 17:15 17:15 WBC 6.14 (4.8-10.8) K/ul RBC 4.44 (4.20-5.40) M/uL Hgb 14.2 (12.0-16.0) g/dl Hct 41.7 (37.0-47.0) % MCV 93.9 (80.0-100.0) fL MCH 32.0 (25.0-34.0) pg MCHC 34.1 (32.0-36.0) g/dL RDW Std Deviation 53.5 H (36.4-46.3) fL RDW Coeff of Del 15.4 H (11.5-14.5) % Plt Count 176 (130-400) K/uL MPV 10.5 (9.4-12.4) fL Immature Gran % (Auto) 0.3 % Neut % (Auto) 72.9 % Lymph % (Auto) 16.4 % [place] % (Auto) 9.4 % Eos % (Auto) 0.7 % Baso % (Auto) 0.3 % Neut # (Auto) 4.47 (1.40-6.50) K/uL Lymph # (Auto) 1.01 L (1.2-3.4) K/uL [place] # (Auto) 0.58 (0.11-0.59) K/uL Eos # (Auto) 0.04 (0-0.50) K/uL Baso # (Auto) 0.02 (0-0.2) K/uL Immature Gran # (Auto) 0.02 (0.01-0.20) K/uL PT 12.0 (9.0-12.0) Seconds INR 1.1 (0.9-1.1) APTT 29.5 (21.0-31.0) Seconds PTT Ratio 1.0 Sodium (136-145) mmol/L Potassium (3.5-5.1) mmol/L Chloride (98-107) mmol/L Carbon Dioxide (21-32) mmol/L Anion Gap (3-11) BUN (6-23) mg/dl Creatinine (0.6-1.2) mg/dl Est Cr Clr Drug Dosing ml/min Est GFR ( Amer) ml/min Est GFR (Non-Af Amer) ml/min BUN/Creatinine Ratio (10-20) Glucose (70-99(Fasting)) mg/dl Calcium (8.6-10.3) mg/dl Magnesium (1.7-2.4) mg/dl Total Bilirubin (0.2-1.0) mg/dl AST (13-39) U/L ALT (7-52) U/L Alkaline Phosphatase (34-104) U/L Troponin I High Sens (0-14) pg/ml B-Natriuretic Peptide (0-100) pg/ml Total Protein (6.0-8.3) gm/dl Albumin (3.4-5.0) gm/dl Globulin (2.5-4.0) gm/dl Albumin/Globulin Ratio (0.9-2) SARS-CoV-2 (PCR) NEGATIVE (Negative) Influenza Type A (PCR) Negative (Neg) Influenza Type B (PCR) Negative (Neg) RSV (RT-PCR) Negative (Neg) 10/02/22 10/02/22 Range/Units 17:15 17:15 WBC (4.8-10.8) K/ul RBC (4.20-5.40) M/uL Hgb (12.0-16.0) g/dl Hct (37.0-47.0) % MCV (80.0-100.0) fL MCH (25.0-34.0) pg MCHC (32.0-36.0) g/dL RDW Std Deviation (36.4-46.3) fL RDW Coeff of Del (11.5-14.5) % Plt Count (130-400) K/uL MPV (9.4-12.4) fL Immature Gran % (Auto) % Neut % (Auto) % Lymph % (Auto) % [place] % (Auto) % Eos % (Auto) % Baso % (Auto) % Neut # (Auto) (1.40-6.50) K/uL Lymph # (Auto) (1.2-3.4) K/uL [place] # (Auto) (0.11-0.59) K/uL Eos # (Auto) (0-0.50) K/uL Baso # (Auto) (0-0.2) K/uL Immature Gran # (Auto) (0.01-0.20) K/uL PT (9.0-12.0) Seconds INR (0.9-1.1) APTT (21.0-31.0) Seconds PTT Ratio Sodium 133 L (136-145) mmol/L Potassium 4.1 (3.5-5.1) mmol/L Chloride 93 L (98-107) mmol/L Carbon Dioxide 31 (21-32) mmol/L Anion Gap 9 (3-11) BUN 17 (6-23) mg/dl Creatinine 0.87 (0.6-1.2) mg/dl Est Cr Clr Drug Dosing 43.5 ml/min Est GFR ( Amer) 69.9 ml/min Est GFR (Non-Af Amer) 60.3 ml/min BUN/Creatinine Ratio 19.5 (10-20) Glucose 110 H (70-99(Fasting)) mg/dl Calcium 8.8 (8.6-10.3) mg/dl Magnesium 1.9 (1.7-2.4) mg/dl Total Bilirubin 1.4 H (0.2-1.0) mg/dl AST 39 (13-39) U/L ALT 26 (7-52) U/L Alkaline Phosphatase 95 (34-104) U/L Troponin I High Sens 6.9 (0-14) pg/ml B-Natriuretic Peptide 824 H (0-100) pg/ml Total Protein 7.1 (6.0-8.3) gm/dl Albumin 3.6 (3.4-5.0) gm/dl Globulin 3.5 (2.5-4.0) gm/dl Albumin/Globulin Ratio 1.0 (0.9-2) SARS-CoV-2 (PCR) (Negative) Influenza Type A (PCR) (Neg) Influenza Type B (PCR) (Neg) RSV (RT-PCR) (Neg) Administered Medications Discontinued Medications Furosemide (Furosemide 40 Mg/4 Ml Vial) 40 mg IV ONE ONE Stop: 10/02/22 17:15 Last Admin: 10/02/22 17:20 Dose: 40 mg Documented By: LAURENCE Imaging Data Attestation: I personally reviewed and interpreted this imaging study as follows: My Impression: 1 view chest x-ray was obtained in the emergency department. My interpretation is left-sided pleural effusion with volume overload, final report below Radiologist's Impression: Chest X-Ray 10/02/22 17:10 SINGLE VIEW CHEST CLINICAL HISTORY: Dyspnea. FINDINGS: An AP, portable, upright chest radiograph is compared to study dated 01/07/2021. A 2-lead cardiac pacemaker is unchanged in position. The heart is enlarged noting atherosclerotic calcification of the thoracic aorta. There is pulmonary vascular congestion. There are small right and moderate left pleural effusions with dependent consolidation. No pneumothorax is seen. The skeletal structures are osteopenic. There are chronic/healed left-sided rib fractures. Arthritic change is noted in the shoulders and spine. IMPRESSION: 1. Cardiomegaly and cardiac pacemaker and evidence of congestive failure. 2. Left larger than right pleural effusions with dependent consolidation. ACT 112: Negative or not required by law. Electronically signed by: Edgar Wen M.D. 10/02/2022 6:47 PM Discharge Plan Visit Data Chief Complaint: Shortness of Breath/Dyspnea Stated Complaint: SHORT OF BREATH, HYPERTENSIVE ED Provider: Dontae Martinez Discharge Problem: CHF (congestive heart failure), Pleural effusion Patient Disposition: Being Evaluated by Hospitalist Forms Stand Alone Forms: [facility] Prescriptions Prescriptions: No Action magnesium oxide [MagOx] 400 mg (241.3 mg magnesium) tablet 400 mg PO QAM cyanocobalamin (vitamin B-12) [Vitamin B-12] 1,000 mcg Tablet 2,000 mcg PO QAM aspirin 81 mg Tablet,Delayed Release (Dr/Ec) 81 mg PO QAM atorvastatin 40 mg tablet 40 mg PO HS polyethylene glycol 3350 17 gram/dose Powder 17 g PO DAILY PRN (Reason: Constipation) Rx Instructions: MIX IN 8 OUNCES OF ORANGE JUICE OR WATER calcium carbonate-vitamin D3 [Calcium 500 + D] 500 mg(1,250mg) -400 unit Tablet 1 tab PO Q12H lidocaine HCl [Aspercreme (lidocaine HCl)] 4 % Cream 1 applic TOPICAL HS PRN (Reason: Pain) Rx Instructions: topically to feet acetaminophen 325 mg Tablet 650 mg PO Q6 MDD 3g PRN (Reason: Pain, Mild) acetaminophen 325 mg Tablet 650 mg PO Q6 MDD 3g PRN (Reason: Fever Or Pain) ferrous sulfate 325 mg (65 mg iron) Tablet 325 mg PO Q OTHER DAY oxymetazoline [Afrin (oxymetazoline)] 0.05 % Arcade,Non-Aerosol 2 spray INTRANASAL UD PRN (Reason: nose bleeds) Rx Instructions: spray twice into each nostril while inhaling as needed then apply nasal clamp for 45 minutes for nosebleeds metoprolol succinate 50 mg Tablet Extended Release 24 Hr 100 mg PO QAM Qty: 60 0RF furosemide 40 mg tablet 40 mg PO QAM levothyroxine 75 mcg tablet 75 mcg PO QAM gabapentin 300 mg capsule 300 mg PO HS fluticasone propionate 50 mcg/actuation spray,suspension 2 spray INTRANASAL HS furosemide 20 mg tablet 20 mg PO .DAILY AT 2 PM sennosides-docusate sodium [Senokot-S] 8.6-50 mg Tablet 1 tab-cap PO BID PRN (Reason: Constipation) lidocaine 5 % Adhesive Patch,Medicated 1 patch TOPICAL DAILY PRN (Reason: Pain) Rx Instructions: leave on most painful area for up to 12 hrs Referrals Referrals: Cristela [email or web address] [Primary Care Provider] -
[2022-10-02 17:53] LABS: Basophils # (auto) 0.02 K/uL (0-0.2); Basophils % (auto) 0.3 %; Eosinophils # (auto) 0.04 K/uL (0-0.50); Eosinophils % (auto) 0.7 %; Hematocrit (blood only) 41.7 % (37.0-47.0); Hemoglobin 14.2 g/dl (12.0-16.0); Immature Granulocytes # (auto) 0.02 K/uL (0.01-0.20); Immature Granulocytes % (auto) 0.3 %; Lymphocytes # (auto) 1.01 K/uL (1.2-3.4); Lymphocytes % (auto) 16.4 %; Mean Corpuscular Hgb Conc 34.1 g/dL (32.0-36.0); Mean Corpuscular Volume 93.9 fL (80.0-100.0); Mean Platelet Volume 10.5 fL (9.4-12.4); Monocytes # (auto) 0.58 K/uL (0.11-0.59); Monocytes % (auto) 9.4 %; Neutrophils # (auto) 4.47 K/uL (1.40-6.50); Neutrophils % (auto) 72.9 %; Platelet Count 176 K/uL (130-400); RDW Coefficient of Variation 15.4 % (11.5-14.5); RDW Standard Deviation 53.5 fL (36.4-46.3); Red Blood Count 4.44 M/uL (4.20-5.40); White Blood Count 6.14 K/ul (4.8-10.8)
[2022-10-02 18:08] LABS: Albumin Level 3.6 gm/dl (3.4-5.0); BUN Creatinine Ratio 19.5 (10-20); Bilirubin,Total 1.4 mg/dl (0.2-1.0); Calcium 8.8 mg/dl (8.6-10.3); Creatinine Clr Calc Pharmacy 43.5 ml/min; Est GFR (African American) 69.9 ml/min; Est GFR (Non-African American) 60.3 ml/min; Globulin 3.5 gm/dl (2.5-4.0); Magnesium 1.9 mg/dl (1.7-2.4); Potassium 4.1 mmol/L (3.5-5.1); Total Protein 7.1 gm/dl (6.0-8.3)
[2022-10-02 18:14] LABS: Troponin I High Sensitivity 6.9 pg/ml (0-14)
[2022-10-02 18:25] LABS: Influenza A virus by PCR Negative (Neg); Influenza B virus by PCR Negative (Neg); RSV by PCR Negative (Neg); SARS CoV2 RNA(COVID-19) Ceph NEGATIVE (Negative)
[2022-10-02 18:31] LABS: INR 1.1 (0.9-1.1); Partial Thromboplastin Time 29.5 Seconds (21.0-31.0)
--- NOTE | 2022-10-02 18:49 | XRay Report ---
SINGLE VIEW CHEST CLINICAL HISTORY: Dyspnea. FINDINGS: An AP, portable, upright chest radiograph is compared to study dated 01/07/2021. A 2-lead car diac pacemaker is unchanged in position. The heart is enlarged noting atherosclerotic calcification o f the thoracic aorta. There is pulmonary vascular congestion. There are small right and moderate left pleural effusions with dependent consolidation. No pneumothorax is seen. The skeletal structures are osteopenic. There are chronic/healed left-sided rib fractures. Arthritic change is noted in the shou lders and spine. IMPRESSION: 1. Cardiomegaly and cardiac pacemaker and evidence of congestive failure. 2. Left larger than right pleural effusions with dependent consolidation. ACT 112: Negative or not required by law. Electronically signed by: Edgar Wen M.D. 10/02/2022 6:47 PM
--- NOTE | 2022-10-02 22:43 | History & Physical Report ---
Date of Service October 02, 2022 Assessment & Plan (1) Decompensated heart failure: Plan: Decompensated heart failure Underlying pulmonary hypertension ? Uncontrolled BP as precipitant Rule out progression of valvular heart disease Rule out uncontrolled heart rates (atrial tachycardia/A-fib burden greater than threshold as per outpatient device interrogation June 2022), hx sick sinus syndrome status post PPM off Coumadin secondary to traumatic intracranial hemorrhage hyperlipidemia, on statin Rx PVD Hypothyroidism, elevated TSH with normal free T4 Prediabetes, hemoglobin A1c of 5.5 last 2020 Chronic hyponatremia PCU Diuretic Rx Strict I/Os, daily weights, CHF education, fluid restriction Titrate BP meds Pacemaker interrogation update TTE, Cardiology consult Re: Decompensated CHF Update hemoglobin A1c DVT prophylaxis. Heparin subcu DNR Text document was generated using [employer] voice recognition software. It may contain grammatical or spelling errors. Kindly contact undersigned for clarification of any documentation item in qu estion. History of Present Illness Chief Complaint: Shortness of breath Primary Care Provider: Cristela Vazquez of [place] Patient is a fair historian. Medical history significant forchronic diastolic heart failure (EF 60 to 65%, TTE 2020), sick sinus syndrome status post PPM off Coumadin secondary to traumatic intracranial hemorrhage, valvular heart disease (moderate MR/TR, trace AR), pulmonary hypertension, hypertension, hyperlipidemia, hypothyroidism, chronic hyponatremia, PVD, prediabetes. Last confinement January 2021 for acute CHF. Atrial tachycardia/atrial fibrillation burden greater than threshold as per remote device interrogation June 2022. Patient noted worsening shortness of breath over the last few days with some leg swelling. Transient chest pain in the morning without unusual cough symptoms. Patient compliant with medications. IV Lasix administered at the ER. 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 Allergies Allergy/AdvReac Type Severity Reaction Status Date / Time latex Allergy Unknown Unknown Verified 10/02/22 19:48 mirtazapine Allergy Unknown Rash Verified 10/02/22 19:47 lisinopril AdvReac Unknown Cough Verified 10/02/22 19:47 Home Medications Medication Instructions Recorded Confirmed Type magnesium oxide 400 mg (241.3 mg 400 mg PO QAM 05/11/19 10/02/22 History magnesium) tablet (MagOx) atorvastatin 40 mg tablet 40 mg PO HS 02/05/20 10/02/22 History calcium carbonate 500 mg-vitamin 1 tab PO Q12H 02/05/20 10/02/22 History D3 10 mcg (400 unit) tablet (Calcium 500 + D) polyethylene glycol 3350 17 17 g PO DAILY PRN Constipation 02/05/20 10/02/22 History gram/dose oral powder lidocaine HCl 4 % topical cream 1 applic topical HS PRN Pain 05/18/20 10/02/22 History (Aspercreme (lidocaine HCl)) aspirin 81 mg tablet,delayed 81 mg PO QAM 07/21/20 10/02/22 History release cyanocobalamin (vitamin B-12) 2,000 mcg PO QAM 07/21/20 10/02/22 History 1,000 mcg tablet (Vitamin B-12) acetaminophen 325 mg tablet 650 mg PO Q6 PRN Fever Or Pain 01/03/21 10/02/22 History acetaminophen 325 mg tablet 650 mg PO Q6 PRN Pain, Mild 01/03/21 10/02/22 History ferrous sulfate 325 mg (65 mg 325 mg PO Q OTHER DAY 01/03/21 10/02/22 History iron) tablet oxymetazoline 0.05 % nasal spray 2 spray intranasal UD PRN nose 01/03/21 10/02/22 History (Afrin (oxymetazoline)) bleeds metoprolol succinate 50 mg 100 mg PO QAM #60 tabs 01/14/21 10/02/22 Rx tablet,extended release 24 hr fluticasone propionate 50 2 spray intranasal HS 10/02/22 10/02/22 History mcg/actuation nasal spray,suspension furosemide 20 mg tablet 20 mg PO .DAILY AT 2 PM 10/02/22 10/02/22 History furosemide 40 mg tablet 40 mg PO QAM 10/02/22 10/02/22 History gabapentin 300 mg capsule 300 mg PO HS 10/02/22 10/02/22 History levothyroxine 75 mcg tablet 75 mcg PO QAM 10/02/22 10/02/22 History lidocaine 5 % topical patch 1 patch topical DAILY PRN Pain 10/02/22 10/02/22 History sennosides 8.6 mg-docusate sodium 1 tab-cap PO BID PRN Constipation 10/02/22 10/02/22 History 50 mg tablet (Senokot-S) Past Med/Surg History Medical History Acute heart failure with preserved ejection fraction (HFpEF) Anxiety Atrial fibrillation No AC secondary to history of bleeding issues (traumatic brain hemorrhage/intra- abdominal hemorrhage) Atrial fibrillation Chronic hyponatremia Constipation COVID-19 Decompensated heart failure Diastolic heart failure with preserved ejection fraction Fracture of neck of scapula HTN (hypertension) Hyperlipidemia Hypomagnesemia Hypothyroidism Metabolic encephalopathy Osteoarthritis Persistent atrial fibrillation Sick sinus syndrome S/p pacemaker Stroke TIA (transient ischemic attack) Possible in December 08, 2019 TIA 05/2019 per records. Last seen by neuro= 01/08/20- follow up PRN. Continue ASA. 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: No Beliefs That Will Affect Care: None marital status: Current Living Situation: Personal Care Facility Current Living Situation Comment: [place] with who has dementia current occupational status: retired Other Information That Helps Us Care for You: No Feels Safe at Home: Yes Safety Concerns: Feels Safe At This Time Assistive Devices: Walker and Wheelchair Review of Systems Review of Systems: As per HPI, all other systems reviewed and negative Physical Exam Physical Exam: GENERAL: Comfortable, slightly hard of hearing, pleasant, underweight, no respiratory distress SKIN: Normal color, warm HEENT: [place] palpebral conjunctivae, no ptosis, dry buccal mucosa NECK : Supple, no tenderness CHEST : Decreased breath sounds, no tenderness HEART : Irregular, systolic murmur ABDOMEN: Some distention, nontender EXTREMITIES : Minimal LE swelling, no LE tenderness, no other conspicuous deformities noted NEUROLOGIC : Coherent, no facial asymmetry, mild hearing impairment, no other gross focality Results & Data Results & Data Vital Signs (Past 12 Hours) Vital Signs Temp Pulse Pulse Resp BP BP Pulse Ox 10/02/22 21:30 76 20 96 10/02/22 21:00 75 20 92 10/02/22 21:00 140/84 10/02/22 21:09 73 18 140/84 93 10/02/22 20:48 81 10/02/22 20:39 77 18 129/98 92 10/02/22 19:34 90 16 159/98 H 94 10/02/22 19:19 94 10/02/22 18:00 82 24 157/97 H 92 10/02/22 17:24 92 H 22 170/108 H 93 10/02/22 17:11 88 18 95 10/02/22 16:42 90 10/02/22 16:33 95 10/02/22 16:33 97 H 18 166/124 H 95 10/02/22 16:33 36.3 C L 97 H 18 166/124 H 95 O2 Del Method 10/02/22 21:30 10/02/22 21:00 10/02/22 21:00 10/02/22 21:09 Room Air 10/02/22 20:48 10/02/22 20:39 Room Air 10/02/22 19:34 Room Air 10/02/22 19:19 Room Air 10/02/22 18:00 Room Air 10/02/22 17:24 Room Air 10/02/22 17:11 Room Air 10/02/22 16:42 10/02/22 16:33 Room Air 10/02/22 16:33 Room Air 10/02/22 16:33 Room Air Laboratory Results Laboratory Results WBC 6.14 K/ul (4.8-10.8) 10/02/22 17:15 RBC 4.44 M/uL (4.20-5.40) 10/02/22 17:15 Hgb 14.2 g/dl (12.0-16.0) 10/02/22 17:15 Hct 41.7 % (37.0-47.0) 10/02/22 17:15 MCV 93.9 fL (80.0-100.0) 10/02/22 17:15 MCH 32.0 pg (25.0-34.0) 10/02/22 17:15 MCHC 34.1 g/dL (32.0-36.0) 10/02/22 17:15 RDW Std Deviation 53.5 fL (36.4-46.3) H 10/02/22 17:15 RDW Coeff of Del 15.4 % (11.5-14.5) H 10/02/22 17:15 Plt Count 176 K/uL (130-400) 10/02/22 17:15 MPV 10.5 fL (9.4-12.4) 10/02/22 17:15 Immature Gran % (Auto) 0.3 % 10/02/22 17:15 Neut % (Auto) 72.9 % 10/02/22 17:15 Lymph % (Auto) 16.4 % 10/02/22 17:15 [place] % (Auto) 9.4 % 10/02/22 17:15 Eos % (Auto) 0.7 % 10/02/22 17:15 Baso % (Auto) 0.3 % 10/02/22 17:15 Neut # (Auto) 4.47 K/uL (1.40-6.50) 10/02/22 17:15 Lymph # (Auto) 1.01 K/uL (1.2-3.4) L 10/02/22 17:15 [place] # (Auto) 0.58 K/uL (0.11-0.59) 10/02/22 17:15 Eos # (Auto) 0.04 K/uL (0-0.50) 10/02/22 17:15 Baso # (Auto) 0.02 K/uL (0-0.2) 10/02/22 17:15 Immature Gran # (Auto) 0.02 K/uL (0.01-0.20) 10/02/22 17:15 PT 12.0 Seconds (9.0-12.0) 10/02/22 17:15 INR 1.1 (0.9-1.1) 10/02/22 17:15 APTT 29.5 Seconds (21.0-31.0) 10/02/22 17:15 PTT Ratio 1.0 10/02/22 17:15 Sodium 133 mmol/L (136-145) L 10/02/22 17:15 Potassium 4.1 mmol/L (3.5-5.1) 10/02/22 17:15 Chloride 93 mmol/L (98-107) L 10/02/22 17:15 Carbon Dioxide 31 mmol/L (21-32) 10/02/22 17:15 Anion Gap 9 (3-11) 10/02/22 17:15 BUN 17 mg/dl (6-23) 10/02/22 17:15 Creatinine 0.87 mg/dl (0.6-1.2) 10/02/22 17:15 Est Cr Clr Drug Dosing 43.5 ml/min 10/02/22 17:15 Est GFR ( Amer) 69.9 ml/min 10/02/22 17:15 Est GFR (Non-Af Amer) 60.3 ml/min 10/02/22 17:15 BUN/Creatinine Ratio 19.5 (10-20) 10/02/22 17:15 Glucose 110 mg/dl (70-99(Fasting)) H 10/02/22 17:15 Calcium 8.8 mg/dl (8.6-10.3) 10/02/22 17:15 Magnesium 1.9 mg/dl (1.7-2.4) 10/02/22 17:15 Total Bilirubin 1.4 mg/dl (0.2-1.0) H 10/02/22 17:15 AST 39 U/L (13-39) 10/02/22 17:15 ALT 26 U/L (7-52) 10/02/22 17:15 Alkaline Phosphatase 95 U/L (34-104) 10/02/22 17:15 Troponin I High Sens 6.9 pg/ml (0-14) 10/02/22 17:15 B-Natriuretic Peptide 824 pg/ml (0-100) H 10/02/22 17:15 Total Protein 7.1 gm/dl (6.0-8.3) 10/02/22 17:15 Albumin 3.6 gm/dl (3.4-5.0) 10/02/22 17:15 Globulin 3.5 gm/dl (2.5-4.0) 10/02/22 17:15 Albumin/Globulin Ratio 1.0 (0.9-2) 10/02/22 17:15 SARS-CoV-2 (PCR) NEGATIVE (Negative) 10/02/22 17:14 Influenza Type A (PCR) Negative (Neg) 10/02/22 17:14 Influenza Type B (PCR) Negative (Neg) 10/02/22 17:14 RSV (RT-PCR) Negative (Neg) 10/02/22 17:14 Impressions Chest X-Ray 10/02/22 17:10 SINGLE VIEW CHEST CLINICAL HISTORY: Dyspnea. FINDINGS: An AP, portable, upright chest radiograph is compared to study dated 01/07/2021. A 2-lead cardiac pacemaker is unchanged in position. The heart is enlarged noting atherosclerotic calcification of the thoracic aorta. There is pulmonary vascular congestion. There are small right and moderate left pleural effusions with dependent consolidation. No pneumothorax is seen. The skeletal structures are osteopenic. There are chronic/healed left-sided rib fractures. Arthritic change is noted in the shoulders and spine. IMPRESSION: 1. Cardiomegaly and cardiac pacemaker and evidence of congestive failure. 2. Left larger than right pleural effusions with dependent consolidation. ACT 112: Negative or not required by law. Electronically signed by: Edgar Wen M.D. 10/02/2022 6:47 PM Diagnostic Findings EKG as per my interpretation :Rate 105, A-fib, LAD, LAFB, nonspecific T wave abnormalities
[2022-10-02 23:09] LABS: Thyroid Stimulating Hormone 10.242 uIu/ml (0.300-4.500)
[2022-10-02] MEDS ORDERED: POLYETHYLENE (MIRALAX) 17 GM PACK PO PRN (23:37)
[2022-10-02] MEDS ORDERED: ACETAMINOPHEN 325 MG TAB PO PRN (23:37)
[2022-10-02] MEDS ORDERED: LIDOCAINE 5% 1 PATCH TD PRN (23:37)
[2022-10-03 00:07] LABS: T4 Free Thyroxine 1.41 ng/dl (0.61-1.60)
[2022-10-03] MEDS: LEVOTHYROXINE SODIUM 75 MCG TABLET PO SCH (05:52)
[2022-10-03 06:33] LABS: Basophils # (auto) 0.03 K/uL (0-0.2); Basophils % (auto) 0.5 %; Eosinophils # (auto) 0.04 K/uL (0-0.50); Eosinophils % (auto) 0.7 %; Hematocrit (blood only) 43.8 % (37.0-47.0); Hemoglobin 14.7 g/dl (12.0-16.0); Immature Granulocytes # (auto) 0.02 K/uL (0.01-0.20); Immature Granulocytes % (auto) 0.4 %; Lymphocytes # (auto) 1.13 K/uL (1.2-3.4); Mean Corpuscular Hemoglobin 31.4 pg (25.0-34.0); Mean Corpuscular Hgb Conc 33.6 g/dL (32.0-36.0); Mean Corpuscular Volume 93.6 fL (80.0-100.0); Mean Platelet Volume 10.6 fL (9.4-12.4); Monocytes # (auto) 0.54 K/uL (0.11-0.59); Monocytes % (auto) 9.5 %; Neutrophils % (auto) 68.9 %; Platelet Count 192 K/uL (130-400); RDW Coefficient of Variation 15.2 % (11.5-14.5); RDW Standard Deviation 52.5 fL (36.4-46.3); Red Blood Count 4.68 M/uL (4.20-5.40); White Blood Count 5.66 K/ul (4.8-10.8)
[2022-10-03 06:40] LABS: Calcium 8.8 mg/dl (8.6-10.3); Creatinine Clr Calc Pharmacy 44.4 ml/min; Est GFR (African American) 78.6 ml/min; Est GFR (Non-African American) 67.8 ml/min; Potassium 3.6 mmol/L (3.5-5.1)
[2022-10-03 08:29] LABS: Estimated Average Glucose 126 mg/dl
[2022-10-03] MEDS: METOPROLOL SUCC 50MG EXT REL TAB PO SCH (09:05)
[2022-10-03] MEDS: ASPIRIN 81 MG ECTAB PO SCH (09:05)
[2022-10-03] MEDS: CYANOCOBALAMIN (B-12) 500 MCG TABLET PO SCH (09:05)
[2022-10-03] MEDS: MAGNESIUM OXIDE 400 MG TAB PO SCH (09:05)
--- NOTE | 2022-10-03 09:05 | Cardiology Consultation ---
Date of Consultation October 03, 2022 Assessment & Plan (1) Acute heart failure with preserved ejection fraction (HFpEF): (2) Pleural effusion: (3) Atrial fibrillation: (4) Pacemaker: Plan patient admitted for recurrent HFpEF with b/l pleural effusions, SOB, orthpnea, PND x1 month. Echo revealed preserved LVEF without significant valvular heart disease. B/L Pleural effusions on xray. Agree with furosemide 40 mg IV BID Monitor I+O's Low sodium diet 1500 ml Fluid restriction. Hypoxia improved, now on room air. Patient with intermittent PND. Recommend Nocturnal oximetry tonight. HR's also improved. Continue metoprolol. Device interrogated this morning and mode adjusted to VVIR given chronic afib. Lower rates also set at 50 bmp She is not an anticoagulation candidate due to prior traumatic falls and brain bleeds. Continue IV diuresis today. May need slightly higher diuretics on discharge. Monitor BMP. Case discussed with Dr. Gill. I spent a total of 60 minutes on the date of service in preparation, delivery, and documentation of the care provided to this patient, excluding any time spent in the performance of separately billed services. Alia Vasquez PA-C Department of Cardiology, [facility] This chart was completed in part utilizing Speech Voice Recognition Software. Grammatical errors, random word insertions, prounoun errors, and incomplete sentences are an occasional consequence of this system due to software limitations, ambient noise, and hardware issues. Any formal questions or concerns about the content, text, or information contained within the body of this dictation should be directly addressed to the provider for clarification. Supervising Physician Co-Signing Physician Notes Supervising Physician Attestation: I have personally performed a history and physical examination on the patient. I agree with the physician cement tester assistant's findings and plan as documented with the following additions. Subjective: Patient resting at the time of my assessment. She noted subjective improvement having received IV diuretics upon admission. 2.1 L of urine output measured in the last 24 hours. Exam: Cardiovascular: Irregular rhythm, 1/6 systolic murmur, no edema Pulmonary: Decreased breath sounds bilaterally at the bases, left worse than right Data: Data as noted above Assessment and Plan: Acute heart failure with preserved ejection fraction, left pleural effusion -Agree with furosemide 40 mg IV twice daily. Potassium supplementation. -Monitor blood pressure, heart rate, kidney function electrolytes -Agree with subcutaneous heparin for DVT prophylaxis. She has long been deemed to not be a candidate for chronic anticoagulation. Garland Gill, DO History of Present Illness Reason for Consultation: CHF Requesting Physician: Dr. Pepper Attending Physician: Dr. Gill History of Present Illness Patient is an 87 year old female known to [facility] cardiology for history of: 1.History of atrial fibrillation/flutter, now chronic afib 1.QTc prolongation when loaded with Sotalol. 2.Status post direct-current cardioversion on 11/21/17 with early reoccurrence of atrial fibrillation for which she was prescribed amiodarone post procedure. Cardioversion complicated, requiring intubation with only 50 mg of propofol for sedation. 3.Discontinuation of amiodarone on 05/07/2018 due to side effects. 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 Post procedural pneumothorax, treated conservatively. 2.Hypertension. 3.Chart history of hypertensive encephalopathy. 4.Hyponatremia. 5.Chart history of peripheral artery disease. Patient resides at assisted living facility. Over the Last month, patient reports worsening shortness of breath with activity and at rest. She also complains of PND. No weight gain. No increased lower extremity edema. No dizziness or chest pain. upon admission she was found to have left > right pleural effusion. started on diuretic therapy with IV furosemide. At time of consult, patient sitting in chair feeling well. Urinating frequently. Reports improved SOB. No edema. Still had mild orthopnea, PND last night. Cough improving. No hypoxia on room air. NO chest pain. she reported compliance with home meds including diuretics. Allergies Allergy/AdvReac Type Severity Reaction Status Date / Time latex Allergy Unknown Unknown Verified 10/02/22 19:48 mirtazapine Allergy Unknown Rash Verified 10/02/22 19:47 lisinopril AdvReac Unknown Cough Verified 10/02/22 19:47 Home Medications Medication Instructions Recorded Confirmed Type magnesium oxide 400 mg (241.3 mg 400 mg PO QAM 05/11/19 10/02/22 History magnesium) tablet (MagOx) atorvastatin 40 mg tablet 40 mg PO HS 02/05/20 10/02/22 History calcium carbonate 500 mg-vitamin 1 tab PO Q12H 02/05/20 10/02/22 History D3 10 mcg (400 unit) tablet (Calcium 500 + D) polyethylene glycol 3350 17 17 g PO DAILY PRN Constipation 02/05/20 10/02/22 History gram/dose oral powder lidocaine HCl 4 % topical cream 1 applic topical HS PRN Pain 05/18/20 10/02/22 History (Aspercreme (lidocaine HCl)) aspirin 81 mg tablet,delayed 81 mg PO QAM 07/21/20 10/02/22 History release cyanocobalamin (vitamin B-12) 2,000 mcg PO QAM 07/21/20 10/02/22 History 1,000 mcg tablet (Vitamin B-12) acetaminophen 325 mg tablet 650 mg PO Q6 PRN Fever Or Pain 01/03/21 10/02/22 History acetaminophen 325 mg tablet 650 mg PO Q6 PRN Pain, Mild 01/03/21 10/02/22 History ferrous sulfate 325 mg (65 mg 325 mg PO Q OTHER DAY 01/03/21 10/02/22 History iron) tablet oxymetazoline 0.05 % nasal spray 2 spray intranasal UD PRN nose 01/03/21 10/02/22 History (Afrin (oxymetazoline)) bleeds metoprolol succinate 50 mg 100 mg PO QAM #60 tabs 01/14/21 10/02/22 Rx tablet,extended release 24 hr fluticasone propionate 50 2 spray intranasal HS 10/02/22 10/02/22 History mcg/actuation nasal spray,suspension furosemide 20 mg tablet 20 mg PO .DAILY AT 2 PM 10/02/22 10/02/22 History furosemide 40 mg tablet 40 mg PO QAM 10/02/22 10/02/22 History gabapentin 300 mg capsule 300 mg PO HS 10/02/22 10/02/22 History levothyroxine 75 mcg tablet 75 mcg PO QAM 10/02/22 10/02/22 History lidocaine 5 % topical patch 1 patch topical DAILY PRN Pain 10/02/22 10/02/22 History sennosides 8.6 mg-docusate sodium 1 tab-cap PO BID PRN Constipation 05/02/23 05/02/23 History 50 mg tablet (Senokot-S) Patient History Medical History Acute heart failure with preserved ejection fraction (HFpEF) Anxiety Atrial fibrillation No AC secondary to history of bleeding issues (traumatic brain hemorrhage/intra- abdominal hemorrhage) Atrial fibrillation Chronic hyponatremia Constipation COVID-19 Decompensated heart failure Diastolic heart failure with preserved ejection fraction Fracture of neck of scapula HTN (hypertension) Hyperlipidemia Hypomagnesemia Hypothyroidism Metabolic encephalopathy Osteoarthritis Persistent atrial fibrillation Sick sinus syndrome S/p pacemaker Stroke TIA (transient ischemic attack) Possible in December 08, 2019 TIA 05/2019 per records. Last seen by neuro= 01/08/20- follow up PRN. Continue ASA. UTI (urinary tract infection) Surgical History H/O colonoscopy History of pacemaker Family History Other Cancer Social History Smoking Status: Never smoker Second Hand Exposure: No; Do You Dip or Chew Tobacco: No; Tobacco Cessation Education Requested by Patient: No Hx Alcohol Use: No Hx Substance Use: No Preferred Language: Romanian Communication Ability: Effective Communication Ability Comment: Pt. is alert top person only Maintenance Team Member Required: No Beliefs That Will Affect Care: None marital status: Current Living Situation: Personal Care Facility Current Living Situation Comment: [place] with who has dementia current occupational status: retired Other Information That Helps Us Care for You: No Feels Safe at Home: Yes Safety Concerns: Feels Safe At This Time Assistive Devices: Walker and Wheelchair Review of Systems Review of Systems: All systems reviewed & are unremarkable except as noted in HPI & below Physical Exam Constitutional: WD/WN, vitals as above well nourished; no acute distress Neck: trachea midline, no thyromegaly Respiratory: normal respiratory effort Auscultation: + diminished lung sounds (at bases) and + crackles (scattered ) Cardiovascular: Rate/Rhythm: + irregularly irregular Heart Sounds: normal S1 and normal S2; no murmur Vessels: no JVD Extremities: no edema Gastrointestinal (Abdomen): normal bowel sounds, soft, nontender, no hepatosplenomegaly Skin: no rashes, warm and dry Neurologic: PERRL, EOMI, accommodation nl, no face palsy, no dysarthria Results & Data Vital Signs (Past 12 Hours) Vital Signs Temp Pulse Pulse Resp BP Pulse Ox O2 Del Method 10/03/22 07:25 36.2 C L 70 20 156/84 H 93 Room Air 10/03/22 03:22 87 10/03/22 05:06 36.5 C 79 18 156/81 H 92 Room Air 10/03/22 00:03 36.6 C 87 18 198/90 H 94 Room Air 10/02/22 23:12 Room Air 10/02/22 23:05 73 18 166/96 H 93 Room Air 10/02/22 21:30 76 20 96 10/02/22 21:09 73 18 140/84 93 Room Air Laboratory Results Cardiac Enzymes 10/02/22 10/02/22 Range/Units 17:15 17:15 AST 39 (13-39) U/L Troponin I High Sens 6.9 (0-14) pg/ml B-Natriuretic Peptide 824 H (0-100) pg/ml Coagulation 10/02/22 10/02/22 Range/Units 17:15 17:15 PT 12.0 (9.0-12.0) Seconds APTT 29.5 (21.0-31.0) Seconds B-Natriuretic Peptide 824 H (0-100) pg/ml CBC 10/02/22 10/03/22 Range/Units 17:15 05:38 WBC 6.14 5.66 (4.8-10.8) K/ul RBC 4.44 4.68 (4.20-5.40) M/uL Hgb 14.2 14.7 (12.0-16.0) g/dl Hct 41.7 43.8 (37.0-47.0) % Plt Count 176 192 (130-400) K/uL Neut # (Auto) 4.47 3.90 (1.40-6.50) K/uL Lymph # (Auto) 1.01 L 1.13 L (1.2-3.4) K/uL [place] # (Auto) 0.58 0.54 (0.11-0.59) K/uL Eos # (Auto) 0.04 0.04 (0-0.50) K/uL Baso # (Auto) 0.02 0.03 (0-0.2) K/uL Comprehensive Metabolic Panel 10/02/22 10/03/22 Range/Units 17:15 05:38 Sodium 133 L 135 L (136-145) mmol/L Potassium 4.1 3.6 (3.5-5.1) mmol/L Chloride 93 L 95 L (98-107) mmol/L Carbon Dioxide 31 32 (21-32) mmol/L BUN 17 15 (6-23) mg/dl Creatinine 0.87 0.79 (0.6-1.2) mg/dl Glucose 110 H 86 (70-99(Fasting)) mg/dl Calcium 8.8 8.8 (8.6-10.3) mg/dl AST 39 (13-39) U/L ALT 26 (7-52) U/L Alkaline Phosphatase 95 (34-104) U/L Total Protein 7.1 (6.0-8.3) gm/dl Albumin 3.6 (3.4-5.0) gm/dl Intake and Output 10/02/22 10/03/22 10/03/22 22:59 06:59 14:59 Output Total 1100 / 1100 Balance -1100 / -1100 Output: Urine 1100 / 1100 Other: Weight 59.4 kg 55 kg 55 kg Weight Measurement Method Built in [facility] Built in [facility] Patient Weight 10/04/22 06:59 Weight 55 kg Diagnostic Findings Telemetry reviewed: Atrial fibrillation with controlled ventricular rates, intermittent pacing Echo report reviewed from 10/03/22: Mild concentric LVH. LV wall motion is normal. LV systolic function is normal. Ejection fraction 55-60%. Aortic valve sclerosis moderate without significant aortic valvular stenosis [employer] device interrogation today - appropriate function and battery longevity. Persistent/chronic AFib with the assistance of [employer] entry level marketing representative, mode change was adjusted to VVIR and lower rate set at 50 to reduce pacing percentage EKG on 10/02/22: Atrial fibrillation with rapid ventricular response Low voltage QRS Nonspecific T wave abnormality Abnormal ECG When compared with ECG of 05-JAN-2021 05:59, Nonspecific T wave abnormality, improved in Anterior leads Nonspecific T wave abnormality, worse in Lateral leads Outpatient device interrogation reviewed from September 2022: appropriate function and battery longevity. Persistent/chronic afib. Medications Administered Current Inpatient Medications Acetaminophen (Acetaminophen 325 Mg Tab) 650 mg PO Q6 PRN PRN Reason: Fever Or Pain Stop: 11/01/22 23:36 Aspirin (Aspirin 81 Mg Ectab) 81 mg PO [facility] Stop: 11/02/22 08:59 Last Admin: 10/03/22 09:05 Dose: 81 mg Atorvastatin Calcium (Atorvastatin 40 Mg Tab) 40 mg PO [facility] Stop: 11/02/22 20:59 Cyanocobalamin (Cyanocobalamin (B-12) 500 Mcg Tablet) [facility] Stop: 11/02/22 08:59 Last Admin: 10/03/22 09:05 Dose: 2,000 mcg Ferrous Sulfate (Ferrous Sulfate 325 Mg Tab) 325 mg PO Q2D [facility] Stop: 11/03/22 08:59 Fluticasone Propionate (Fluticasone Propionate Na Spr 16 Gm Btl) 2 sprays NA [facility] Stop: 11/02/22 20:59 Furosemide (Furosemide 40 Mg/4 Ml Vial) 40 mg IV BID17 [facility] Stop: 10/03/22 17:01 Last Admin: 10/03/22 09:06 Dose: 40 mg Gabapentin (Gabapentin 300 Mg Cap) 300 mg PO [facility] Stop: 11/02/22 20:59 Heparin Sodium (Porcine) (Heparin Sod 5,000 Unit/0.5 Ml Vial) 5,000 units SQ Q8 [facility] Stop: 11/02/22 13:59 Last Admin: 10/03/22 09:06 Dose: 5,000 units Levothyroxine Sodium (Levothyroxine Sodium 75 Mcg Tablet) 75 mcg PO DAILYBB [facility] Stop: 11/02/22 06:29 Last Admin: 10/03/22 05:52 Dose: 75 mcg Lidocaine (Lidocaine 5% 1 Patch) 1 patch TD DAILY PRN PRN Reason: Pain Stop: 11/01/22 23:36 Magnesium Oxide (Magnesium Oxide 400 Mg Tab) 400 mg PO [facility] Stop: 11/02/22 08:59 Last Admin: 10/03/22 09:05 Dose: 400 mg Metoprolol Succinate (Metoprolol Succ 50mg Ext Rel Tab) 100 mg [facility] Stop: 11/02/22 08:59 Last Admin: 10/03/22 09:05 Dose: 100 mg Miscellaneous (Remove Lidoderm Patch) 1 each N/A DAILY@2100 [facility] Stop: 06/02/23 20:59 Polyethylene Glycol (Polyethylene (Miralax) 17 Gm Pack) 17 gm PO DAILY PRN PRN Reason: Constipation Stop: 11/01/22 23:36 Potassium Chloride (Potassium Chloride Crtab 20 Meq Tabcr) 20 meq PO BID [facility] Stop: 11/02/22 08:59 Last Admin: 10/03/22 09:06 Dose: 20 meq
[2022-10-03] MEDS: HEPARIN SOD 5,000 UNIT/0.5 ML VIAL SQ SCH ×2 (09:06→20:00)
[2022-10-03] MEDS: FUROSEMIDE 40 MG/4 ML VIAL IV SCH ×2 (09:06→18:57)
[2022-10-03] MEDS: POTASSIUM CHLORIDE CRTAB 20 MEQ TABCR PO SCH ×2 (09:06→20:00)
--- NOTE | 2022-10-03 13:12 | Electrocardiogram Report ---
Test Reason : Blood Pressure : / mmHG Vent. Rate : 104 BPM Atrial Rate : 000 BPM P-R Int : 000 ms QRS Dur : 078 ms QT Int : 382 ms P-R-T Axes : 000 -25 142 degrees QTc Int : 502 ms Atrial fibrillation with rapid ventricular response Low voltage QRS Nonspecific T wave abnormality Abnormal ECG When compared with ECG of 05-JAN-2021 05:59, Nonspecific T wave abnormality, improved in Anterior leads Nonspecific T wave abnormality, worse in Lateral leads Confirmed by Hema Hinkle ([id number]) on 10/03/2022 1:12:26 PM Referred By: [facility] Confirmed By:Hema Hinkle
--- NOTE | 2022-10-03 14:07 | Electrocardiogram Report ---
Test Reason : Blood Pressure : / mmHG Vent. Rate : 056 BPM Atrial Rate : 053 BPM P-R Int : 000 ms QRS Dur : 080 ms QT Int : 458 ms P-R-T Axes : 000 -38 -63 degrees QTc Int : 441 ms Poor data quality, interpretation may be adversely affected Atrial fibrillation with slow ventricular response with frequent ventricular-paced complexes Left axis deviation Abnormal ECG When compared with ECG of 02-OCT-2022 16:37, (unconfirmed) Electronic ventricular pacemaker now evident Vent. rate has decreased BY 48 BPM Confirmed by Hema Hinkle ([id number]) on 10/03/2022 2:06:56 PM Referred By: [facility] Confirmed By:Hema Hinkle
--- NOTE | 2022-10-03 18:45 | Hospitalist Progress Note ---
Date of Service October 03, 2022 Assessment & Plan (1) Decompensated heart failure: Plan: Acute on chronic heart failure with preserved EF B/L Pleural effusion secondary to above --CXR: Cardiomegaly and cardiac pacemaker and evidence of congestive failure. L eft larger than right pleural effusions with dependent consolidation. --ECHO: Mild concentric LVH. Left ventricle wall motion is normal. Left ventricle systolic function is normal. EF 55 to 60%. Aortic valve sclerosis moderate, without significant aortic valvular stenosis. Moderate mitral regurgitation. Pulmonary artery systolic pressure is estimated to be 36 mmHg. Large left pleural effusion. -- Continue IV Lasix Fluid restriction, low-salt diet Saturating well on room air today Appreciate cardiology input Pacemaker interrogated and mode adjusted to VVIR Monitor volume status, electrolytes, renal function Nocturnal oximetry study today Sick sinus syndrome S/P pacemaker Off Coumadin due to history of intracranial hemorrhage Pacemaker interrogated and adjusted as above Continue metoprolol Hypertension Continue metoprolol Monitor Hyperlipidemia On statin PVD Continue aspirin, Lipitor Hypothyroidism Elevated TSH, normal free T4 Continue levothyroxine Needs repeat thyroid function test as outpatient Prediabetes HbA1c 6.0 Chronic hyponatremia Likely due to diuretics Monitor DVT Px: Heparin SQ CODE STATUS DNI/DNR Admission and Anticipated Discharge Date Admission Date: October 02, 2022 Subjective Patient is seen and examined at bedside States having poor sleep overnight Feels well today otherwise Denies any chest pain, dyspnea, dizziness, nausea, abdominal pain No other complaints Review of Systems Review of Systems: All systems reviewed & are unremarkable except as noted in Subjective Physical Exam Physical Exam: Physical Exam: Vitals signs as noted above General Appearance:Thin, frail, no apparent distress, Elderly Head: normocephalic, Atraumatic Eyes: normal inspection, EOMI Neck: supple, Trachea midline Respiratory/Chest: Decreased breath sounds, Basal rales, No accessory muscle use Cardiovascular: S1, S2, + murmur, Bradycardia Abdomen/GI:Soft, Non tender, Bowel sounds present Extremities/Musculoskeletal:normal inspection, no edema Neurologic/Psych:AAOX3, grossly no focal neurological deficits, + hearing impairment Skin: normal color, warm Results & Data Results & Data Vital Signs (Past 12 Hours) Vital Signs Temp Pulse Resp BP Pulse Ox O2 Del Method 10/03/22 14:46 36.6 C 72 18 145/82 H 96 Room Air 10/03/22 10:57 36.5 C 62 20 150/90 H 93 Room Air 10/03/22 07:25 36.2 C L 70 20 156/84 H 93 Room Air
[2022-10-03] MEDS: ATORVASTATIN 40 MG TAB PO SCH (19:59)
[2022-10-03] MEDS: GABAPENTIN 300 MG CAP PO SCH (19:59)
[2022-10-03] MEDS: FLUTICASONE PROPIONATE NA SPR 16 GM BTL SCH (19:59)
[2022-10-04] MEDS: LEVOTHYROXINE SODIUM 75 MCG TABLET PO SCH (05:52)
[2022-10-04] MEDS: HEPARIN SOD 5,000 UNIT/0.5 ML VIAL SQ SCH ×3 (05:52→21:13)
[2022-10-04 06:33] LABS: BUN Creatinine Ratio 24.1 (10-20); Calcium 8.8 mg/dl (8.6-10.3); Creatinine Clr Calc Pharmacy 42.9 ml/min; Est GFR (African American) 78.6 ml/min; Est GFR (Non-African American) 67.8 ml/min; Magnesium 1.9 mg/dl (1.7-2.4); Potassium 3.9 mmol/L (3.5-5.1)
[2022-10-04] MEDS ORDERED: FERROUS SULFATE 325 MG TAB PO SCH (09:00)
[2022-10-04] MEDS: METOPROLOL SUCC 50MG EXT REL TAB PO SCH (09:34)
[2022-10-04] MEDS: CYANOCOBALAMIN (B-12) 500 MCG TABLET PO SCH (09:34)
[2022-10-04] MEDS: MAGNESIUM OXIDE 400 MG TAB PO SCH (09:34)
[2022-10-04] MEDS: ASPIRIN 81 MG ECTAB PO SCH (09:34)
[2022-10-04] MEDS: POTASSIUM CHLORIDE CRTAB 20 MEQ TABCR PO SCH ×2 (09:35→21:12)
--- NOTE | 2022-10-04 10:46 | Cardiology Progress Note ---
Date of Service October 04, 2022 Assessment & Plan (1) Acute heart failure with preserved ejection fraction (HFpEF): (2) Pleural effusion: (3) Atrial fibrillation: (4) Pacemaker: Plan patient admitted for recurrent HFpEF with b/l pleural effusions, SOB, orthopnea, PND x1 month. Echo revealed preserved LVEF without significant valvular heart disease. B/L Pleural effusions on xray. Patient with good diuresis since admission and improved symptoms. -1200 cc of fluid and weight down 2 kg. Hypoxia improved, now on room air. Patient with intermittent PND. Nocturnal oximetry without significant hypoxic episodes HR's also improved. Continue metoprolol. Device interrogated during admission and mode adjusted to VVIR given chronic afib. Lower rates also set at 50 bmp She is not an anticoagulation candidate due to prior traumatic falls and brain bleeds. IV furosemide held this morning. Transition back to oral furosemide 40 mg in AM and 40 mg in afternoon (slightly higher dose than prior to admission) will need f/u BMP next week with PCP. Will arrange cardiology f/u in about 2-4 weeks. Stable for discharge today from cardiac standpoint. Case discussed with Dr. Gill. I spent a total of 30 minutes on the date of service in preparation, delivery, and documentation of the care provided to this patient, excluding any time spent in the performance of separately billed services. Alia Vasquez PA-C Department of Cardiology, [facility] This chart was completed in part utilizing Speech Voice Recognition Software. Grammatical errors, random word insertions, prounoun errors, and incomplete sentences are an occasional consequence of this system due to software limitations, ambient noise, and hardware issues. Any formal questions or concerns about the content, text, or information contained within the body of this dictation should be directly addressed to the provider for clarification. Admission and Anticipated Discharge Date Admission Date: October 02, 2022 Supervising Physician Co-Signing Physician Notes Supervising Physician Attestation: I have personally performed a history and physical examination on the patient. I agree with the physician care assistant's findings and plan as documented with the following additions. Subjective: Patient states she felt well first and this morning, feels like she has a little bit less energy now that she is out of bed in the chair. Telemetry revealed stable findings as noted. Exam: Cardiovascular: Irregular rhythm, 1/6 systolic murmur, no edema Pulmonary decreased breath sounds at the left base Assessment and Plan: -Improved heart failure with preserved ejection fraction -Permanent atrial fibrillation, not anticoagulation candidate -- Perhaps on the hospitalist reassess her after lunch, if she is feeling back to herself, she can be discharged on furosemide 40 mg p.o. twice daily as noted Garland Gill, DO Subjective Patient feeling well this morning. She reports having a good nights rest without orthopnea or PND. SOB improved with ambulation. No cough or fever or chills. no chest pain. no edema. Review of Systems Review of Systems: All systems reviewed & are unremarkable except as noted in HPI & below Physical Exam Constitutional: WD/WN, vitals as above well nourished; no acute distress Neck: trachea midline, no thyromegaly Respiratory: normal respiratory effort Auscultation: + diminished lung sounds (at bases) Cardiovascular: Rate/Rhythm: + irregularly irregular Heart Sounds: normal S1 and normal S2; no murmur Vessels: no JVD Extremities: no edema Gastrointestinal (Abdomen): normal bowel sounds, soft, nontender, no hepatosplenomegaly Skin: no rashes, warm and dry Neurologic: PERRL, EOMI, accommodation nl, no face palsy, no dysarthria Results & Data Vital Signs (Past 12 Hours) Vital Signs Temp Pulse Pulse Pulse Resp BP Pulse Ox 10/04/22 08:00 57 L 10/04/22 07:56 36.5 C 69 16 163/91 H 95 10/04/22 04:02 59 L 10/04/22 03:14 36.4 C L 60 18 105/62 93 10/04/22 01:43 60 10/03/22 23:50 58 L 10/03/22 22:52 36.5 C 68 20 120/85 94 Pulse Ox O2 Del Method O2 Del Method 10/04/22 08:00 10/04/22 07:56 Room Air 10/04/22 04:02 96 Room Air 10/04/22 03:14 Room Air 10/04/22 01:43 94 Room Air 10/03/22 23:50 94 Room Air 10/03/22 22:52 Room Air Laboratory Results Comprehensive Metabolic Panel 10/04/22 Range/Units 05:30 Sodium 135 L (136-145) mmol/L Potassium 3.9 (3.5-5.1) mmol/L Chloride 97 L (98-107) mmol/L Carbon Dioxide 30 (21-32) mmol/L BUN 19 (6-23) mg/dl Creatinine 0.79 (0.6-1.2) mg/dl Glucose 71 (70-99(Fasting)) mg/dl Calcium 8.8 (8.6-10.3) mg/dl Intake and Output 10/03/22 10/04/22 10/04/22 22:59 06:59 14:59 Intake Total 300 / 900 Balance 300 / -100 Intake: Oral 300 / 900 Other: # Unmeasured Voids 1 1 Weight 53.2 kg Weight Measurement Method Built in [facility] Diagnostic Findings Telemetry reviewed: atrial fibrillation with controlled ventricular rates. intermittent ventricular pacing. Medications Administered Current Inpatient Medications Acetaminophen (Acetaminophen 325 Mg Tab) 650 mg PO Q6 PRN PRN Reason: Fever Or Pain Stop: 11/01/22 23:36 Aspirin (Aspirin 81 Mg Ectab) [facility] [place] Stop: 11/02/22 08:59 Last Admin: 10/04/22 09:34 Dose: 81 mg Atorvastatin Calcium (Atorvastatin 40 Mg Tab) 40 mg PO [facility] Stop: 11/02/22 20:59 Last Admin: 10/03/22 19:59 Dose: 40 mg Cyanocobalamin (Cyanocobalamin (B-12) 500 Mcg Tablet) 2,000 mcg PO QAM [facility] Stop: 11/02/22 08:59 Last Admin: 10/04/22 09:34 Dose: 2,000 mcg Ferrous Sulfate (Ferrous Sulfate 325 Mg Tab) 325 mg PO Q2D [facility] Stop: 11/03/22 08:59 Last Admin: 10/04/22 09:34 Dose: 325 mg Fluticasone Propionate (Fluticasone Propionate Na Spr 16 Gm Btl) 2 sprays NA [facility] Stop: 11/02/22 20:59 Last Admin: 10/03/22 19:59 Dose: 2 sprays Gabapentin (Gabapentin 300 Mg Cap) 300 mg PO [facility] Stop: 11/02/22 20:59 Last Admin: 10/03/22 19:59 Dose: 300 mg Heparin Sodium (Porcine) (Heparin Sod 5,000 Unit/0.5 Ml Vial) 5,000 units SQ Q8 [facility] Stop: 11/02/22 13:59 Last Admin: 10/04/22 05:52 Dose: 5,000 units Levothyroxine Sodium (Levothyroxine Sodium 75 Mcg Tablet) 75 mcg PO DAILYBB [facility] Stop: 11/02/22 06:29 Last Admin: 10/04/22 05:52 Dose: 75 mcg Lidocaine (Lidocaine 5% 1 Patch) 1 patch TD DAILY PRN PRN Reason: Pain Stop: 11/01/22 23:36 Magnesium Oxide (Magnesium Oxide 400 Mg Tab) 400 mg PO QAM [facility] Stop: 11/02/22 08:59 Last Admin: 10/04/22 09:34 Dose: 400 mg Metoprolol Succinate (Metoprolol Succ 50mg Ext Rel Tab) 100 mg PO QAM [facility] Stop: 11/02/22 08:59 Last Admin: 10/04/22 09:34 Dose: 100 mg Miscellaneous (Remove Lidoderm Patch) 1 each N/A DAILY@2100 [facility] Stop: 11/02/22 20:59 Last Admin: 10/03/22 20:00 Dose: 1 each Polyethylene Glycol (Polyethylene (Miralax) 17 Gm Pack) 17 gm PO DAILY PRN PRN Reason: Constipation Stop: 11/01/22 23:36 Potassium Chloride (Potassium Chloride Crtab 20 Meq Tabcr) 20 meq PO BID [facility] Stop: 11/02/22 08:59 Last Admin: 10/04/22 09:35 Dose: 20 meq
--- NOTE | 2022-10-04 11:40 | Electrocardiogram Report ---
Test Reason : Blood Pressure : / mmHG Vent. Rate : 073 BPM Atrial Rate : 089 BPM P-R Int : 000 ms QRS Dur : 084 ms QT Int : 446 ms P-R-T Axes : 000 -51 -71 degrees QTc Int : 491 ms Atrial fibrillation Left anterior fascicular block Nonspecific T wave abnormality Prolonged QT Abnormal ECG When compared with ECG of 03-OCT-2022 10:54, V pacing is no longer evident Confirmed by Hema Hinkle ([id number]) on 10/04/2022 11:40:04 AM Referred By: [facility] Confirmed By:Hema Hinkle
[2022-10-04] MEDS: FUROSEMIDE 40 MG TAB PO SCH (17:13)
--- NOTE | 2022-10-04 17:28 | Hospitalist Progress Note ---
Date of Service October 04, 2022 Assessment & Plan (1) Decompensated heart failure: Plan: Acute on chronic heart failure with preserved EF B/L Pleural effusion secondary to above --CXR: Cardiomegaly and cardiac pacemaker and evidence of congestive failure. L eft larger than right pleural effusions with dependent consolidation. --ECHO: Mild concentric LVH. Left ventricle wall motion is normal. Left ventricle systolic function is normal. EF 55 to 60%. Aortic valve sclerosis moderate, without significant aortic valvular stenosis. Moderate mitral regurgitation. Pulmonary artery systolic pressure is estimated to be 36 mmHg. Large left pleural effusion. -- Received IV Lasix Fluid restriction, low-salt diet Saturating well on room air today Appreciate cardiology input Pacemaker interrogated and mode adjusted to VVIR Monitor volume status, electrolytes, renal function Nocturnal oximetry study: Does not qualify for oxygen Lasix transition to PO 40 mg twice daily Needs BMP, follow-up with cardiology upon discharge Sick sinus syndrome S/P pacemaker Off Coumadin due to history of intracranial hemorrhage Pacemaker interrogated and adjusted as above Continue metoprolol Hypertension Continue metoprolol Monitor Hyperlipidemia On statin PVD Continue aspirin, Lipitor Hypothyroidism Elevated TSH, normal free T4 Continue levothyroxine Needs repeat thyroid function test as outpatient Prediabetes HbA1c 6.0 Chronic hyponatremia Likely due to diuretics Monitor DVT Px: Heparin SQ CODE STATUS DNI/DNR Admission and Anticipated Discharge Date Admission Date: October 02, 2022 Subjective Patient is seen and examined at bedside States feeling well this morning but later has some dyspnea in the afternoon Also reports dry mouth Sitting in chair during my encounter Offers no other complaints Denies any chest pain, dizziness, nausea, abdominal pain Review of Systems Review of Systems: All systems reviewed & are unremarkable except as noted in Subjective Physical Exam Physical Exam: Physical Exam: Vitals signs as noted above General Appearance:Thin, frail, no apparent distress, Elderly Head: normocephalic, Atraumatic Eyes: normal inspection, EOMI Neck: supple, Trachea midline Respiratory/Chest: Decreased breath sounds, Basal rales, No accessory muscle use Cardiovascular: S1, S2, + murmur, Bradycardia Abdomen/GI:Soft, Non tender, Bowel sounds present Extremities/Musculoskeletal:normal inspection, no edema Neurologic/Psych:AAOX3, grossly no focal neurological deficits, + hearing impairment Skin: normal color, warm Results & Data Results & Data Vital Signs (Past 12 Hours) Vital Signs Temp Pulse Pulse Resp BP Pulse Ox O2 Del Method 10/04/22 15:33 36.5 C 75 18 123/86 93 Room Air 10/04/22 15:19 72 10/04/22 11:45 36.4 C L 72 18 111/76 94 Room Air 10/04/22 08:00 57 L 10/04/22 07:56 36.5 C 69 16 163/91 H 95 Room Air Laboratory Results [facility] 10/04/22 05:30 Sodium 135 L Potassium 3.9 Chloride 97 L Carbon Dioxide 30 BUN 19 Creatinine 0.79 Glucose 71 Calcium 8.8
[2022-10-04] MEDS: ATORVASTATIN 40 MG TAB PO SCH (21:11)
[2022-10-04] MEDS: FLUTICASONE PROPIONATE NA SPR 16 GM BTL SCH (21:11)
[2022-10-04] MEDS: GABAPENTIN 300 MG CAP PO SCH (21:11)
[2022-10-05] MEDS: LEVOTHYROXINE SODIUM 75 MCG TABLET PO SCH (05:42)
[2022-10-05] MEDS: HEPARIN SOD 5,000 UNIT/0.5 ML VIAL SQ SCH ×2 (05:42→14:23)
[2022-10-05 06:34] LABS: Hematocrit (blood only) 40.9 % (37.0-47.0); Hemoglobin 13.8 g/dl (12.0-16.0); Mean Corpuscular Hemoglobin 31.7 pg (25.0-34.0); Mean Corpuscular Hgb Conc 33.7 g/dL (32.0-36.0); Mean Platelet Volume 10.8 fL (9.4-12.4); Platelet Count 182 K/uL (130-400); RDW Coefficient of Variation 15.6 % (11.5-14.5); RDW Standard Deviation 53.9 fL (36.4-46.3); Red Blood Count 4.35 M/uL (4.20-5.40); White Blood Count 5.48 K/ul (4.8-10.8)
[2022-10-05 07:38] LABS: BUN Creatinine Ratio 31.3 (10-20); Calcium 8.8 mg/dl (8.6-10.3); Creatinine Clr Calc Pharmacy 42.3 ml/min; Est GFR (African American) 77.4 ml/min; Est GFR (Non-African American) 66.8 ml/min; Potassium 4.8 mmol/L (3.5-5.1)
[2022-10-05] MEDS: MAGNESIUM OXIDE 400 MG TAB PO SCH (09:52)
[2022-10-05] MEDS: FUROSEMIDE 40 MG TAB PO SCH (09:52)
[2022-10-05] MEDS: METOPROLOL SUCC 50MG EXT REL TAB PO SCH (09:52)
[2022-10-05] MEDS: ASPIRIN 81 MG ECTAB PO SCH (09:52)
[2022-10-05] MEDS: POTASSIUM CHLORIDE CRTAB 20 MEQ TABCR PO SCH (09:53)
[2022-10-05] MEDS: CYANOCOBALAMIN (B-12) 500 MCG TABLET PO SCH (09:54)
--- NOTE | 2022-10-05 10:31 | Cardiology Progress Note ---
Date of Service October 05, 2022 Assessment & Plan (1) Acute heart failure with preserved ejection fraction (HFpEF): (2) Pleural effusion: (3) Atrial fibrillation: (4) Pacemaker: Plan patient admitted for recurrent HFpEF with b/l pleural effusions, SOB, orthopnea, PND x1 month. Echo revealed preserved LVEF without significant valvular heart disease. B/L Pleural effusions on xray. Patient with good diuresis since admission and improved symptoms. Hypoxia improved, now on room air. Patient with intermittent PND. Nocturnal oximetry without significant hypoxic episodes HR's also improved. Continue metoprolol. Device interrogated during admission and mode adjusted to VVIR given chronic afib. Lower rates also set at 50 bmp She is not an anticoagulation candidate due to prior traumatic falls and brain bleeds. IV furosemide transitioned to oral furosemide. Order furosemide 40 mg in AM and 40 mg in afternoon on discharge (prior home dose was 40/20) will need f/u BMP next week with PCP. Will arrange cardiology f/u in about 2-4 weeks. Stable for discharge today from cardiac standpoint. Case discussed with Dr. Gill. I spent a total of 30 minutes on the date of service in preparation, delivery, and documentation of the care provided to this patient, excluding any time spent in the performance of separately billed services. Alia Vasquez PA-C Department of Cardiology, [facility] This chart was completed in part utilizing Speech Voice Recognition Software. Grammatical errors, random word insertions, prounoun errors, and incomplete sentences are an occasional consequence of this system due to software limitations, ambient noise, and hardware issues. Any formal questions or concerns about the content, text, or information contained within the body of this dictation should be directly addressed to the provider for clarification. Admission and Anticipated Discharge Date Admission Date: October 02, 2022 Supervising Physician Co-Signing Physician Notes Supervising Physician Attestation: I have personally performed a history and physical examination on the patient. I agree with the physician general assistant's findings and plan as documented with the following additions. Subjective: Patient states that she feels improved. Exam: General: Awake and oriented x3, no acute distress, severe kyphosis noted Pulmonary: Decreased breath sounds at the left base Cardiovascular regular rhythm, 1/6 systolic murmur, no edema Chest: Left infraclavicular pacemaker pocket clean dry and intact, no erythema Data: Telemetry reveals atrial fibrillation with demand ventricular pacing with ventricular rates in the range of the 50s to 60s. Assessment and Plan: -as noted above. -Stable for discharge on furosemide 40 mg p.o. twice daily. Continue prior to hospital medications from a cardiac perspective including aspirin, atorvastatin, metoprolol succinate, potassium chloride I spent a total of 20 minutes on the date of service in preparation, delivery, and documentation of the care provided to this patient, excluding any time spent in the performance of separately billed services. Garland Gill, Subjective Patient feeling well this morning. denies acute complaints. Ready for discharge. she reported mild dyspnea yesterday around lunch which resolved. It appears she did not receive AM dose of furosemide yesterday when transitioning from IV to oral meds. Appears euvolemic this morning and denies orthopnea, PND or edema, SOB, cough. no chest pain. Review of Systems Review of Systems: All systems reviewed & are unremarkable except as noted in HPI & below Physical Exam Constitutional: WD/WN, vitals as above well nourished; no acute distress Neck: trachea midline, no thyromegaly Respiratory: normal respiratory effort Auscultation: + diminished lung sounds (at bases L>R) and + crackles (scattered ) Cardiovascular: Rate/Rhythm: + irregularly irregular Heart Sounds: normal S1 and normal S2; no murmur Vessels: no JVD Extremities: no edema Gastrointestinal (Abdomen): normal bowel sounds, soft, nontender, no hepato splenomegaly Skin: no rashes, warm and dry Neurologic: PERRL, EOMI, accommodation nl, no face palsy, no dysarthria Results & Data Vital Signs (Past 12 Hours) Vital Signs Temp Pulse Pulse Resp BP Pulse Ox O2 Del Method 10/05/22 10:16 78 16 142/80 H 10/05/22 09:06 59 L 10/05/22 08:11 36.5 C 75 19 151/105 H 97 Room Air 10/05/22 04:00 36.5 C 62 18 114/65 93 Room Air 10/05/22 00:00 36.5 C 65 18 111/72 94 Room Air Laboratory Results CBC 10/05/22 Range/Units 05:30 WBC 5.48 (4.8-10.8) K/ul RBC 4.35 (4.20-5.40) M/uL Hgb 13.8 (12.0-16.0) g/dl Hct 40.9 (37.0-47.0) % Plt Count 182 (130-400) K/uL Comprehensive Metabolic Panel 10/05/22 Range/Units 05:30 Sodium 135 L (136-145) mmol/L Potassium 4.8 D (3.5-5.1) mmol/L Chloride 99 (98-107) mmol/L Carbon Dioxide 30 (21-32) mmol/L BUN 25 H (6-23) mg/dl Creatinine 0.80 (0.6-1.2) mg/dl Glucose 71 (70-99(Fasting)) mg/dl Calcium 8.8 (8.6-10.3) mg/dl Intake and Output 10/04/22 10/05/22 10/05/22 22:59 06:59 14:59 Intake Total 300 / 590 50 / 590 Balance 300 / 590 50 / 590 Intake: Oral 300 / 590 50 / 590 Other: Weight 53.1 kg Weight Measurement Method Built in [facility] Diagnostic Findings Telemetry reviewed: Afib with intermittent pacing. Controlled rates. Medications Administered Current Inpatient Medications Acetaminophen (Acetaminophen 325 Mg Tab) 650 mg PO Q6 PRN PRN Reason: Fever Or Pain Stop: 11/01/22 23:36 Aspirin (Aspirin 81 Mg Ectab) [facility] [place] Stop: 11/02/22 08:59 Last Admin: 10/05/22 09:52 Dose: 81 mg Atorvastatin Calcium (Atorvastatin 40 Mg Tab) 40 mg PO [facility] Stop: 11/02/22 20:59 Last Admin: 10/04/22 21:11 Dose: 40 mg Cyanocobalamin (Cyanocobalamin (B-12) 500 Mcg Tablet) 2,000 mcg PO QAM [facility] Stop: 11/02/22 08:59 Last Admin: 10/05/22 09:54 Dose: 2,000 mcg Ferrous Sulfate (Ferrous Sulfate 325 Mg Tab) 325 mg PO Q2D [facility] Stop: 11/03/22 08:59 Last Admin: 10/04/22 09:34 Dose: 325 mg Fluticasone Propionate (Fluticasone Propionate Na Spr 16 Gm Btl) 2 sprays NA [facility] Stop: 11/02/22 20:59 Last Admin: 10/04/22 21:11 Dose: 2 sprays Furosemide (Furosemide 40 Mg Tab) 40 mg PO BID17 [facility] Stop: 11/03/22 16:59 Last Admin: 10/05/22 09:52 Dose: 40 mg Gabapentin (Gabapentin 300 Mg Cap) 300 mg PO HS [facility] Stop: 11/02/22 20:59 Last Admin: 10/04/22 21:11 Dose: 300 mg Heparin Sodium (Porcine) (Heparin Sod 5,000 Unit/0.5 Ml Vial) 5,000 units SQ Q8 [facility] Stop: 11/02/22 13:59 Last Admin: 10/05/22 05:42 Dose: 5,000 units Levothyroxine Sodium (Levothyroxine Sodium 75 Mcg Tablet) 75 mcg PO DAILYBB [facility] Stop: 11/02/22 06:29 Last Admin: 10/05/22 05:42 Dose: 75 mcg Lidocaine (Lidocaine 5% 1 Patch) 1 patch TD DAILY PRN PRN Reason: Pain Stop: 11/01/22 23:36 Magnesium Oxide (Magnesium Oxide 400 Mg Tab) 400 mg PO QAM [facility] Stop: 11/02/22 08:59 Last Admin: 10/05/22 09:52 Dose: 400 mg Metoprolol Succinate (Metoprolol Succ 50mg Ext Rel Tab) 100 mg PO QAM [facility] Stop: 11/02/22 08:59 Last Admin: 10/05/22 09:52 Dose: 100 mg Miscellaneous (Remove Lidoderm Patch) 1 each N/A DAILY@2100 [facility] Stop: 11/02/22 20:59 Last Admin: 10/04/22 21:13 Dose: Not Given Polyethylene Glycol (Polyethylene (Miralax) 17 Gm Pack) 17 gm PO DAILY PRN PRN Reason: Constipation Stop: 11/01/22 23:36 Potassium Chloride (Potassium Chloride Crtab 20 Meq Tabcr) 20 meq PO BID [facility] Stop: 11/02/22 08:59 Last Admin: 10/05/22 09:53 Dose: 20 meq
--- NOTE | 2022-10-05 13:12 | Hospitalist Progress Note ---
Date of Service October 05, 2022 Assessment & Plan (1) Decompensated heart failure: Plan: Acute on chronic heart failure with preserved EF B/L Pleural effusion secondary to above --CXR: Cardiomegaly and cardiac pacemaker and evidence of congestive failure. L eft larger than right pleural effusions with dependent consolidation. --ECHO: Mild concentric LVH. Left ventricle wall motion is normal. Left ventricle systolic function is normal. EF 55 to 60%. Aortic valve sclerosis moderate, without significant aortic valvular stenosis. Moderate mitral regurgitation. Pulmonary artery systolic pressure is estimated to be 36 mmHg. Large left pleural effusion. -- Received IV Lasix Fluid restriction, low-salt diet Saturating well on room air today Appreciate cardiology input Pacemaker interrogated and mode adjusted to VVIR Monitor volume status, electrolytes, renal function Nocturnal oximetry study: Does not qualify for oxygen Lasix transition to PO 40 mg twice daily Needs BMP, follow-up with cardiology upon discharge Plan to discharge to personal care facility today Sick sinus syndrome S/P pacemaker Off Coumadin due to history of intracranial hemorrhage Pacemaker interrogated and adjusted as above Continue metoprolol Hypertension BP Variable Continue metoprolol Monitor Hyperlipidemia On statin PVD Continue aspirin, Lipitor Hypothyroidism Elevated TSH, normal free T4 Continue levothyroxine Needs repeat thyroid function test as outpatient Prediabetes HbA1c 6.0 Chronic hyponatremia Likely due to diuretics Monitor DVT Px: Heparin SQ CODE STATUS DNI/DNR Admission and Anticipated Discharge Date Admission Date: October 02, 2022 Subjective Patient is seen and examined at bedside Sitting in chair during my encounter States feeling better today Denies any dyspnea, dizziness, chest pain, nausea, abdominal pain No other complaints Plan to be discharged to personal care facility today Review of Systems Review of Systems: All systems reviewed & are unremarkable except as noted in Subjective Physical Exam Physical Exam: Physical Exam: Vitals signs as noted above General Appearance:Thin, frail, no apparent distress, Elderly Head: normocephalic, Atraumatic Eyes: normal inspection, EOMI Neck: supple, Trachea midline Respiratory/Chest: Decreased breath sounds, Basal rales, No accessory muscle use Cardiovascular: S1, S2, + murmur, Bradycardia Abdomen/GI:Soft, Non tender, Bowel sounds present Extremities/Musculoskeletal:normal inspection, no edema Neurologic/Psych:AAOX3, grossly no focal neurological deficits, + hearing impairment Skin: normal color, warm Results & Data Results & Data Vital Signs (Past 12 Hours) Vital Signs Temp Pulse Pulse Resp BP Pulse Ox O2 Del Method 10/05/22 12:18 36.5 C 72 16 112/75 95 Room Air 10/05/22 10:16 78 16 142/80 H 10/05/22 09:06 59 L 10/05/22 08:11 36.5 C 75 19 151/105 H 97 Room Air 10/05/22 04:00 36.5 C 62 18 114/65 93 Room Air Laboratory Results Short CBC 10/05/22 Range/Units 05:30 WBC 5.48 (4.8-10.8) K/ul Hgb 13.8 (12.0-16.0) g/dl Hct 40.9 (37.0-47.0) % Plt Count 182 (130-400) K/uL BMP 10/05/22 05:30 Sodium 135 L Potassium 4.8 D Chloride 99 Carbon Dioxide 30 BUN 25 H Creatinine 0.80 Glucose 71 Calcium 8.8
--- NOTE | 2022-10-05 13:21 | Discharge Summary ---
Date of Service October 05, 2022 Admission HPI Per Admitting Provider Patient is a fair historian. Medical history significant forchronic diastolic heart failure (EF 60 to 65%, TTE 2020), sick sinus syndrome status post PPM off Coumadin secondary to traumatic intracranial hemorrhage, valvular heart disease (moderate MR/TR, trace AR), pulmonary hypertension, hypertension, hyperlipidemia, hypothyroidism, chronic hyponatremia, PVD, prediabetes. Last confinement January 2021 for acute CHF. Atrial tachycardia/atrial fibrillation burden greater than threshold as per remote device interrogation June 2022. Patient noted worsening shortness of breath over the last few days with some leg swelling. Transient chest pain in the morning without unusual cough symptoms. Patient compliant with medications. IV Lasix administered at the ER. 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, [facility] resident Admission Exam Per Admitting Provider GENERAL: Comfortable, slightly hard of hearing, pleasant, underweight, no respiratory distress SKIN: Normal color, warm HEENT: [place] palpebral conjunctivae, no ptosis, dry buccal mucosa NECK : Supple, no tenderness CHEST : Decreased breath sounds, no tenderness HEART : Irregular, systolic murmur ABDOMEN: Some distention, nontender EXTREMITIES : Minimal LE swelling, no LE tenderness, no other conspicuous deformities noted NEUROLOGIC : Coherent, no facial asymmetry, mild hearing impairment, no other gross focality Principal Diagnosis Acute on chronic heart failure with preserved EF Sick sinus syndrome Hypothyroidism Discharge Data Allergies Allergy/AdvReac Type Severity Reaction Status Date / Time latex Allergy Unknown Unknown Verified 10/02/22 19:48 mirtazapine Allergy Unknown Rash Verified 10/02/22 19:47 lisinopril AdvReac Unknown Cough Verified 10/02/22 19:47 Consultations 10/02/22 19:31 ED Decision to Admit Stat 10/02/22 22:47 Consult Cardiology Routine Procedures Performed Laboratory Results WBC 5.48 K/ul (4.8-10.8) 10/05/22 05:30 RBC 4.35 M/uL (4.20-5.40) 10/05/22 05:30 Hgb 13.8 g/dl (12.0-16.0) 10/05/22 05:30 Hct 40.9 % (37.0-47.0) 10/05/22 05:30 MCV 94.0 fL (80.0-100.0) 10/05/22 05:30 MCH 31.7 pg (25.0-34.0) 10/05/22 05:30 MCHC 33.7 g/dL (32.0-36.0) 10/05/22 05:30 RDW Std Deviation 53.9 fL (36.4-46.3) H 10/05/22 05:30 RDW Coeff of Del 15.6 % (11.5-14.5) H 10/05/22 05:30 Plt Count 182 K/uL (130-400) 10/05/22 05:30 MPV 10.8 fL (9.4-12.4) 10/05/22 05:30 Immature Gran % (Auto) 0.4 % 10/03/22 05:38 Neut % (Auto) 68.9 % 10/03/22 05:38 Lymph % (Auto) 20.0 % 10/03/22 05:38 [place] % (Auto) 9.5 % 10/03/22 05:38 Eos % (Auto) 0.7 % 10/03/22 05:38 Baso % (Auto) 0.5 % 10/03/22 05:38 Neut # (Auto) 3.90 K/uL (1.40-6.50) 10/03/22 05:38 Lymph # (Auto) 1.13 K/uL (1.2-3.4) L 10/03/22 05:38 [place] # (Auto) 0.54 K/uL (0.11-0.59) 10/03/22 05:38 Eos # (Auto) 0.04 K/uL (0-0.50) 10/03/22 05:38 Baso # (Auto) 0.03 K/uL (0-0.2) 10/03/22 05:38 Immature Gran # (Auto) 0.02 K/uL (0.01-0.20) 10/03/22 05:38 PT 12.0 Seconds (9.0-12.0) 10/02/22 17:15 INR 1.1 (0.9-1.1) 10/02/22 17:15 APTT 29.5 Seconds (21.0-31.0) 10/02/22 17:15 PTT Ratio 1.0 10/02/22 17:15 Sodium 135 mmol/L (136-145) L 10/05/22 05:30 Potassium 4.8 mmol/L (3.5-5.1) D 10/05/22 05:30 Chloride 99 mmol/L (98-107) 10/05/22 05:30 Carbon Dioxide 30 mmol/L (21-32) 10/05/22 05:30 Anion Gap 6 (3-11) 10/05/22 05:30 BUN 25 mg/dl (6-23) H 10/05/22 05:30 Creatinine 0.80 mg/dl (0.6-1.2) 10/05/22 05:30 Est Cr Clr Drug Dosing 42.3 ml/min 10/05/22 05:30 Est GFR ( Amer) 77.4 ml/min 10/05/22 05:30 Est GFR (Non-Af Amer) 66.8 ml/min 10/05/22 05:30 BUN/Creatinine Ratio 31.3 (10-20) H 10/05/22 05:30 Glucose 71 mg/dl (70-99(Fasting)) 10/05/22 05:30 Estimat Average Glucose 126 mg/dl 10/02/22 17:15 Hemoglobin A1c 6.0 % (4.5-5.6) H 10/02/22 17:15 Calcium 8.8 mg/dl (8.6-10.3) 10/05/22 05:30 Magnesium 2.0 mg/dl (1.7-2.4) 10/05/22 05:30 Total Bilirubin 1.4 mg/dl (0.2-1.0) H 10/02/22 17:15 AST 39 U/L (13-39) 10/02/22 17:15 ALT 26 U/L (7-52) 10/02/22 17:15 Alkaline Phosphatase 95 U/L (34-104) 10/02/22 17:15 Troponin I High Sens 6.9 pg/ml (0-14) 10/02/22 17:15 B-Natriuretic Peptide 824 pg/ml (0-100) H 10/02/22 17:15 Total Protein 7.1 gm/dl (6.0-8.3) 10/02/22 17:15 Albumin 3.6 gm/dl (3.4-5.0) 10/02/22 17:15 Globulin 3.5 gm/dl (2.5-4.0) 10/02/22 17:15 Albumin/Globulin Ratio 1.0 (0.9-2) 10/02/22 17:15 TSH 10.242 uIu/ml (0.300-4.500) H 10/02/22 17:15 Free T4 1.41 ng/dl (0.61-1.60) 10/02/22 17:15 Nasal Screen MRSA (PCR) Negative (Negative) 10/03/22 00:26 SARS-CoV-2 (PCR) NEGATIVE (Negative) 10/02/22 17:14 Influenza Type A (PCR) Negative (Neg) 10/02/22 17:14 Influenza Type B (PCR) Negative (Neg) 10/02/22 17:14 RSV (RT-PCR) Negative (Neg) 10/02/22 17:14 Impressions Chest X-Ray 10/02/22 17:10 SINGLE VIEW CHEST CLINICAL HISTORY: Dyspnea. FINDINGS: An AP, portable, upright chest radiograph is compared to study dated 01/07/2021. A 2-lead cardiac pacemaker is unchanged in position. The heart is enlarged noting atherosclerotic calcification of the thoracic aorta. There is pulmonary vascular congestion. There are small right and moderate left pleural effusions with dependent consolidation. No pneumothorax is seen. The skeletal structures are osteopenic. There are chronic/healed left-sided rib fractures. Arthritic change is noted in the shoulders and spine. IMPRESSION: 1. Cardiomegaly and cardiac pacemaker and evidence of congestive failure. 2. Left larger than right pleural effusions with dependent consolidation. ACT 112: Negative or not required by law. Electronically signed by: Edgar Wen M.D. 10/02/2022 6:47 PM Hospital Course (1) Decompensated heart failure: Acute on chronic heart failure with preserved EF B/L Pleural effusion secondary to above --CXR: Cardiomegaly and cardiac pacemaker and evidence of congestive failure. Left larger than right pleural effusions with dependent consolidation. --ECHO: Mild concentric LVH. Left ventricle wall motion is normal. Left ventricle systolic function is normal. EF 55 to 60%. Aortic valve sclerosis moderate, without significant aortic valvular stenosis. Moderate mitral regurgitation. Pulmonary artery systolic pressure is estimated to be 36 mmHg. Large left pleural effusion. -- Received IV Lasix Fluid restriction, low-salt diet Saturating well on room air today Appreciate cardiology input Pacemaker interrogated and mode adjusted to VVIR Monitor volume status, electrolytes, renal function Nocturnal oximetry study: Does not qualify for oxygen Lasix transition to PO 40 mg twice daily Needs BMP, follow-up with cardiology upon discharge Plan to discharge to personal care facility today Sick sinus syndrome S/P pacemaker Off Coumadin due to history of intracranial hemorrhage Pacemaker interrogated and adjusted as above Continue metoprolol Hypertension BP Variable Continue metoprolol Monitor Hyperlipidemia On statin PVD Continue aspirin, Lipitor Hypothyroidism Elevated TSH, normal free T4 Continue levothyroxine Needs repeat thyroid function test as outpatient Prediabetes HbA1c 6.0 Chronic hyponatremia Likely due to diuretics Monitor DVT Px: Heparin SQ CODE STATUS DNI/DNR Total Time Total Time Spent Total Time Spent (In Minutes): 55 minutes Discharge Plan Discharge Items Patient Disposition: Personal [facility] Reason For Visit: CHF Discharge Diagnosis: Acute on chronic heart failure with preserved EF Sick sinus syndrome Hypothyroidism Activity: Per Instructions section Exercise/Sports: Gradually increase as tolerated Non-emergency contact: Primary Care Provider and Track Surfacing Machine Operator Call non-emergency contact if: you have any medication questions, your symptoms worsen, your pain is concerning for you and you have a fever Follow-up/Referrals: Alia Vasquez PA-C [Physician [facility]] - (The cardiology office will call you with a follow up appointment ) Cristela [place] [Primary Care Provider] - Diet: Heart Healthy Fluids: 2000ml (8 cups) Addtl Attending Provider Instructions: Follow-up with your primary care physician in 1 week Follow-up with your receiver setter Alia Vasquez PA-C in 2 to 4 weeks as advised --- Get outpatient blood test: Basic metabolic panel and thyroid function test as outpatient and follow-up with your physician for further management. --- Start taking Lasix (furosemide) 40 mg 2 times a day as recommended by your receiver setter. Seek immediate medical attention if your symptoms reoccur or worsen Please take all medications as instructed on discharge list below. Please call if you have any questions or problems. You can reach a [facility] hospitalist on duty at [facility] 24 hours a day by calling [phone] . Call your Primary Care doctor if any of the following symptoms or problems start or get worse: * Shortness of breath or difficulty breathing * Wake up at night short of breath * Chest pain * Cough * Swelling of your hands, feet, or legs * More fatigued or tired with your normal activity * Palpitations - sudden fast heart beats WEIGHT * Weigh yourself every morning after using the bathroom. * Use the same scale. * Wear the same amount of clothing. * Write your weight down on a chart. * Call your Primary Care doctor if you gain more than 2-3 pounds in 1-2 days. MEDICATIONS * Use this discharge instruction sheet for medication instructions. * Take your medications at the time your doctor ordered. * Do not skip a dose of your medicines. * If you miss a dose of medicine, take it as soon as possible, but DO NOT DOUBLE A DOSE. * Read your medicine information when you get home. * Know all of the side effects of your medicine. If in doubt, ask your pharmacist * Call your Primary Care doctor's office if you have any side effects. * Be sure all of your doctors know what medicine and herbs you take (including cold, flu, and herbal medicine). Take the following with you to your follow-up doctor appointments: * Weight Chart * Medication List * List of questions Do not drink excessive alcohol, beer or wine. Pending Studies at Discharge: No Stand-Alone Forms: Art Circle, Smoking Cessation Skilled Items Patient informed of condition?: Yes DNR: Yes Discharge Level of Care: Other Communicable Disease: No Discharge Prognosis: Stable Lines: None Urinary Catheter: No Medications and DC Order Prescriptions: Continued magnesium oxide [MagOx] 400 mg (241.3 mg magnesium) tablet 400 mg PO QAM cyanocobalamin (vitamin B-12) [Vitamin B-12] 1,000 mcg Tablet 2,000 mcg PO QAM aspirin 81 mg Tablet,Delayed Release (Dr/Ec) 81 mg PO QAM atorvastatin 40 mg tablet 40 mg PO HS polyethylene glycol 3350 17 gram/dose Powder 17 g PO DAILY PRN (Reason: Constipation) Rx Instructions: MIX IN 8 OUNCES OF ORANGE JUICE OR WATER calcium carbonate-vitamin D3 [Calcium 500 + D] 500 mg(1,250mg) -400 unit Tablet 1 tab PO Q12H lidocaine HCl [Aspercreme (lidocaine HCl)] 4 % Cream 1 applic TOPICAL HS PRN (Reason: Pain) Rx Instructions: topically to feet acetaminophen 325 mg Tablet 650 mg PO Q6 MDD 3g PRN (Reason: Fever Or Pain) ferrous sulfate 325 mg (65 mg iron) Tablet 325 mg PO Q OTHER DAY oxymetazoline [Afrin (oxymetazoline)] 0.05 % [place],Non-Aerosol 2 spray INTRANASAL UD PRN (Reason: nose bleeds) Rx Instructions: spray twice into each nostril while inhaling as needed then apply nasal clamp for 45 minutes for nosebleeds metoprolol succinate 50 mg Tablet Extended Release 24 Hr 100 mg PO QAM Qty: 60 0RF levothyroxine 75 mcg tablet 75 mcg PO QAM gabapentin 300 mg capsule 300 mg PO HS fluticasone propionate 50 mcg/actuation spray,suspension 2 spray INTRANASAL HS sennosides-docusate sodium [Senokot-S] 8.6-50 mg Tablet 1 tab-cap PO BID PRN (Reason: Constipation) lidocaine 5 % Adhesive Patch,Medicated 1 patch TOPICAL DAILY PRN (Reason: Pain) Rx Instructions: leave on most painful area for up to 12 hrs Changed furosemide 40 mg tablet 40 mg PO BID Qty: 60 0RF Discontinued acetaminophen 325 mg Tablet 650 mg PO Q6 MDD 3g PRN (Reason: Pain, Mild) furosemide 20 mg tablet 20 mg PO .DAILY AT 2 PM Discharge Orders: Discharge Order (Routine); Ordered 10/05/22 Ordered By: Eddie Brown Admission Data Admit Date/Time: 10/02/22 22:44 Attending Provider: Eddie Brown Admit Provider: Liam Pepper Primary Care Provider: Cristela [facility] Other Providers: Liam Pepper ; Nicole Alvarez ; Garland Gill ; Mark Brown ; Huber Bermudez ; Wilberto Hernandez ; Michael Martin ; Alia Vasquez ; Kizzy Silver ; Nicole Zambrano ; Zeb Posey ; O Ese torres
== END 2022-10-05 15:26 | disposition home or self-care (01) | DRG 291 ==
LOC: ED 16:28 → 4W 22:44 → INTOOBSV 22:44 → 4W 23:12

== ENCOUNTER 2023-04-25 06:22 | Inpatient (IN) ==
--- NOTE | 2023-04-25 07:27 | Emergency Department Note ---
History of Present Illness General Chief complaint: Shortness of Breath/Dyspnea Stated complaint: SHORTNESS OF BREATH Time Seen by Provider: 04/25/23 07:09 Source: patient, RN notes reviewed and old records reviewed (I have reviewed a discharge summary from 10-02-2022 when the patient was admitted for CHF) Mode of arrival: EMS (I have reviewed the EMS note when they brought her in) Limitations: no limitations History of Present Illness This patient is a 87-year-old female who comes in after having some shortness of breath. She tells me she is on a pill for neuropathy and they ran out of it where she lives at [facility]. She has not been sleeping well because of this. She says it does not really help her neuropathy but makes her sleep. She is noticed that she has been tired and had some shortness of breath. She is chronically in A-fib she cannot tell when she is in and out she had a slight cough without fever no chest pain no nausea vomiting no recent fall or trauma. Her who she lives with has had a bad cough. She has chronic lower extremity edema which left is greater than right chronically. She has a history of CHF. She has been on a blood thinner in the past but as far as I can tell she is not on one now she did have a intracranial hemorrhage due to a fall in the past and they took her off. Home Medications Medication Instructions Recorded Confirmed Type magnesium oxide 400 mg (241.3 mg 400 mg PO QAM 05/11/19 04/25/23 History magnesium) tablet (MagOx) calcium carbonate 500 mg-vitamin 1 tab PO Q12H 02/05/20 04/25/23 History D3 10 mcg (400 unit) tablet (Calcium 500 + D) polyethylene glycol 3350 17 17 g PO DAILY PRN Constipation 02/05/20 04/25/23 History gram/dose oral powder lidocaine HCl 4 % topical cream 1 applic topical HS PRN Pain 05/18/20 04/25/23 History (Aspercreme (lidocaine HCl)) aspirin 81 mg tablet,delayed 81 mg PO QAM 07/21/20 04/25/23 History release cyanocobalamin (vitamin B-12) 2,000 mcg PO QAM 07/21/20 04/25/23 History 1,000 mcg tablet (Vitamin B-12) ferrous sulfate 325 mg (65 mg 325 mg PO Q OTHER DAY 01/03/21 04/25/23 History iron) tablet oxymetazoline 0.05 % nasal spray 2 spray intranasal UD PRN nose 01/03/21 04/25/23 History (Afrin (oxymetazoline)) bleeds fluticasone propionate 50 2 spray intranasal HS 10/02/22 04/25/23 History mcg/actuation nasal spray,suspension gabapentin 300 mg capsule 300 mg PO HS 10/02/22 04/25/23 History levothyroxine 75 mcg tablet 75 mcg PO QAM 10/02/22 04/25/23 History lidocaine 5 % topical patch 1 patch topical DAILY PRN Pain 10/02/22 04/25/23 History sennosides 8.6 mg-docusate sodium 1 tab-cap PO BID PRN Constipation 10/02/22 04/25/23 History 50 mg tablet (Senokot-S) furosemide 40 mg tablet 40 mg PO BID #60 tabs 10/05/22 04/25/23 Rx acetaminophen 650 mg 650 mg PO TID pain 04/25/23 04/25/23 History tablet,extended release empagliflozin 10 mg tablet 10 mg PO DAILY 04/25/23 04/25/23 History (Jardiance) metoprolol tartrate 25 mg tablet 12.5 mg PO BID 04/25/23 04/25/23 History spironolactone 25 mg tablet 25 mg PO QAM 04/25/23 04/25/23 History Allergies Allergy/AdvReac Type Severity Reaction Status Date / Time latex Allergy Unknown Unknown Verified 04/25/23 09:27 mirtazapine Allergy Unknown Rash Verified 04/25/23 09:27 lisinopril AdvReac Unknown Cough Verified 04/25/23 09:27 Past Med/Surg History Medical History Atrial fibrillation Diastolic heart failure with preserved ejection fraction Acute heart failure with preserved ejection fraction (HFpEF) Decompensated heart failure UTI (urinary tract infection) Metabolic encephalopathy COVID-19 Fracture of neck of scapula TIA (transient ischemic attack) Possible in December 08, 2019 TIA 05/2019 per records. Last seen by neuro= 01/08/20- follow up PRN. Continue ASA. Constipation Anxiety Osteoarthritis Hyperlipidemia Persistent atrial fibrillation Stroke Chronic hyponatremia Sick sinus syndrome S/p pacemaker Hypomagnesemia Atrial fibrillation No AC secondary to history of bleeding issues (traumatic brain hemorrhage/intra- abdominal hemorrhage) Hypothyroidism HTN (hypertension) Surgical History History of pacemaker H/O colonoscopy Family History Other Cancer Social History Smoking Status: Never smoker Second Hand Exposure: No; Do You Dip or Chew Tobacco: No; Hx Alcohol Use: No Hx Substance Use: No Preferred Language: Hungarian Communication Ability: Effective Communication Ability Comment: Pt. is alert top person only Die Repair Required: No Beliefs That Will Affect Care: None marital status: Current Living Situation: Personal Care Facility Current Living Situation Comment: [facility] with who has dementia current occupational status: retired Feels Safe at Home: Yes Assistive Devices: Walker and Wheelchair Review of Systems A total of 10 systems reviewed and were otherwise negative Physical Exam Vital Signs Vital Signs - 24 hr 04/25/23 06:31 04/25/23 06:31 04/25/23 06:31 Temperature 36.4 C L Temperature Source Oral Pulse Rate Pulse Rate [Apical] 81 Pulse Rhythm [Apical] Regular Respiratory Rate 21 Respiratory Effort / Characteristics Non-Labored Non-Labored Respiratory Depth Normal Normal Respiratory Pattern Regular Blood Pressure Blood Pressure [Right Arm] 139/97 Blood Pressure Mean Blood Pressure Mean [Right Arm] 111 Pulse Oximetry 92 91 Oxygen Delivery Method Room Air Room Air Room Air Oxygen Flow Rate 0 Sepsis Recent Fever Within 48 Hours Sepsis New/Unexplained Change in Mental Status Sepsis Action Taken by Nursing 04/25/23 06:34 04/25/23 06:40 04/25/23 08:01 Temperature 36.4 C L Temperature Source Oral Pulse Rate 81 109 H Pulse Rate [Apical] 69 Pulse Rhythm [Apical] Respiratory Rate 21 16 Respiratory Effort / Characteristics Non-Labored Spontaneous Respiratory Depth Normal Respiratory Pattern Regular Blood Pressure 139/97 Blood Pressure [Right Arm] 128/90 Blood Pressure Mean 111 Blood Pressure Mean [Right Arm] 102 Pulse Oximetry 91 95 Oxygen Delivery Method Room Air Room Air Oxygen Flow Rate Sepsis Recent Fever Within 48 Hours No Sepsis New/Unexplained Change in Mental Status No Sepsis Action Taken by Nursing No Action Required 04/25/23 09:10 04/25/23 10:19 Temperature Temperature Source Pulse Rate Pulse Rate [Apical] 74 96 H Pulse Rhythm [Apical] Respiratory Rate 18 18 Respiratory Effort / Characteristics Spontaneous Spontaneous Respiratory Depth Normal Respiratory Pattern Regular Regular Blood Pressure Blood Pressure [Right Arm] 106/83 130/77 Blood Pressure Mean Blood Pressure Mean [Right Arm] 90 94 Pulse Oximetry 92 96 Oxygen Delivery Method Room Air Room Air Oxygen Flow Rate Sepsis Recent Fever Within 48 Hours Sepsis New/Unexplained Change in Mental Status Sepsis Action Taken by Nursing General: Well developed well nourished older female who appears in no acute distress, breathing comfortably on 2 L nasal cannula normal speech HEENT: Normal cephalic atraumatic. Pupils are equal round and reactive to light. Extraocular movements are intact. Sclera are anicteric. Oropharynx is pink with moist mucous membranes. No swelling of the mouth lips or tongue. Neck: Supple with a midline trachea. No meningeal signs or stiffness, no JVD or bruits. No Stridor. Chest: She does have some crackles in the bases more so on the right. No wheezes or rhonchi. No increased work of breathing. Heart: Irregularly irregular rate and rhythm nontachycardic without murmurs or gallops. Abdomen: Soft nontender, nondistended without rebound guarding or rigidity. Extremities: No cyanosis clubbing she does have 1+ bilateral lower extremity left greater than right. Spine/Back. Non tender to palpation. No CVA tenderness Skin: Good turgor without rashes. Neurologic exam: Cranial nerves two through 12 are intact. Motor and sensation are intact and symmetrical throughout. Course Administered Medications Discontinued Medications Furosemide (Furosemide Inj 20 Mg/2 Ml Vial) 20 mg IV ONE ONE Stop: 04/25/23 10:45 Last Admin: 04/25/23 11:30 Dose: 20 mg Documented By: MAXIM Ioversol (Optiray 320 125ml) 88 ml IV ONCE ONE Stop: 04/25/23 10:17 Last Admin: 04/25/23 10:16 Dose: 88 ml Documented By: RUDY Medical Decision Making Differential Diagnosis CHF, anxiety, sleep related issues, arrhythmia, acute coronary syndrome, PE/DVT, electrolyte or metabolic abnormality, infection Medical Records Attestation: I reviewed the patient's medical records. Home Medications Current Medication List: was personally reviewed by me Laboratory Data Attestation: I reviewed the patient's lab results. 04/25/23 08:27 04/25/23 08:27 Lab Results 04/25/23 04/25/23 Range/Units 07:47 08:27 WBC 5.99 (4.8-10.8) K/ul RBC 4.97 (4.20-5.40) M/uL Hgb 15.8 (12.0-16.0) g/dl Hct 47.2 H (37.0-47.0) % MCV 95.0 (80.0-100.0) fL MCH 31.8 (25.0-34.0) pg MCHC 33.5 (32.0-36.0) g/dL RDW Std Deviation 67.0 H (36.4-46.3) fL RDW Coeff of Del 19.9 H (11.5-14.5) % Plt Count 290 (130-400) K/uL MPV 9.5 (9.4-12.4) fL Immature Gran % (Auto) 0.7 % Neut % (Auto) 76.5 % Lymph % (Auto) 13.7 % [place] % (Auto) 8.7 % Eos % (Auto) 0.2 % Baso % (Auto) 0.2 % Neut # (Auto) 4.59 (1.40-6.50) K/uL Lymph # (Auto) 0.82 L (1.20-3.40) K/uL [place] # (Auto) 0.52 (0.11-0.59) K/uL Eos # (Auto) 0.01 (0.00-0.50) K/uL Baso # (Auto) 0.01 (0.00-0.20) K/uL Immature Gran # (Auto) 0.04 (0.01-0.20) K/uL PT 11.6 (9.0-12.0) Seconds INR 1.1 (0.9-1.1) APTT 29.6 (21.0-31.0) Seconds PTT Ratio 1.0 D-Dimer 4250 H* (0-500) ug/L FEU Sodium 136 (136-145) mmol/L Potassium 4.2 (3.5-5.1) mmol/L Chloride 96 L (98-107) mmol/L Carbon Dioxide 31 (21-32) mmol/L Anion Gap 9 (3-11) BUN 34 H (6-23) mg/dl Creatinine 1.25 H (0.6-1.2) mg/dl Est Cr Clr Drug Dosing 27.7 ml/min Est GFR ( Amer) 45.1 ml/min Est GFR (Non-Af Amer) 38.9 ml/min BUN/Creatinine Ratio 27.2 H (10-20) Glucose 88 (70-99(Fasting)) mg/dl Calcium 9.2 (8.6-10.3) mg/dl Total Bilirubin 1.1 H (0.2-1.0) mg/dl AST 18 (13-39) U/L ALT 11 (7-52) U/L Alkaline Phosphatase 78 (34-104) U/L Troponin I High Sens 9.0 (0-14) pg/ml B-Natriuretic Peptide 1013 H (0-100) pg/ml Total Protein 6.8 (6.0-8.3) gm/dl Albumin 3.2 L (3.4-5.0) gm/dl Globulin 3.6 (2.5-4.0) gm/dl Albumin/Globulin Ratio 0.9 (0.9-2) Lipase 18 (11-82) U/L SARS-CoV-2 (PCR) NEGATIVE (Negative) Imaging Data Attestation: I personally reviewed and interpreted this imaging study as follows: My Impression: Chest x-rené per my independent interpretationthere is a moderate effusion on the left and a small 1 on the right. There is some increased haziness in the base on the right which I think looks a little bit worse than 10-02-2022. Findings consistent with CHF Radiologist's Impression: Chest X-Ray 04/25/23 07:21 XR chest 1V portable CLINICAL HISTORY: Chest pain, nonspecific TECHNIQUE: Single frontal radiograph of the chest was obtained. Comparison: Comparison is made to chest radiograph 10/02/2022 FINDINGS: An implanted pacemaker is seen. Cardiomegaly is noted. The aortic arch is calcified. There is prominence and cephalization of the vasculature with Zully B lines seen. Small right and moderate left pleural effusions are seen. IMPRESSION: 1. Moderate left and small right pleural effusions, slightly increased from prior exam, with underlying atelectasis. 2. Cardiomegaly with possible pulmonary edema. ACT 112: Negative or not required by law. Electronically signed by: Clovis Ann M.D. 04/25/2023 8:38 AM Chest CTA 04/25/23 09:41 CT angio chest PE protocol CLINICAL HISTORY: PE TECHNIQUE: Multidetector row helical CT of the chest was performed with angiographic protocol. Coronal and sagittal reformations were obtained. Coronal and sagittal MIPS were obtained from the axial data set and were submitted for review. Automated dose lowering techniques and/or adjustment according to patient size were utilized for this exam. CT DOSE: 412.38 mGy.cm Comparison: Comparison is made to chest radiograph 04/25/2023 FINDINGS: Lungs and pleura: Moderate bilateral pleural effusions with underlying atelectasis. Smooth interlobular septal thickening is seen. Heart and pericardium: Cardiomegaly is seen with biatrial enlargement. No right heart strain is seen. Vessels: There is a small subsegmental pulmonary embolus in the right upper lobe. Pulmonary trunk measures 38 mm. Mediastinum and ioana: Unremarkable. Chest wall and lower neck: Unremarkable. Abdomen: Incidental note is made of reflux of contrast into the IVC. Bones: Degenerative changes in the thoracic spine. Multilevel compression deformities are seen most prominently at T9, T11, and T12. IMPRESSION: 1. Small subsegmental pulmonary embolus. 2. Pulmonary hypertension and biatrial enlargement is seen compatible with heart failure. 3. Moderate bilateral pleural effusions with underlying atelectasis. Likely mild pulmonary edema. ACT 112: Negative or not required by law. Electronically signed by: Clovis Ann M.D. 04/25/2023 10:28 AM ECG Data Attestation: I personally reviewed and interpreted this ECG as follows: Indication: + SOB/dyspnea Rate (beats per minute): 91 Rhythm: + atrial fibrillation ECG Intervals/blocks: + Normal QRS and + Normal QT ECG [place]: + Normal ECG ST segments: + Nonspecific ST abnormalities ECG Findings: no PACs or no PVCs Comparison ECG Date: from (10/04/2022) Change: no significant change MDM Narrative This patient comes in described above. She has been feeling sleepy and short of breath. She looks well. She is on 2 L nasal cannula when I see her but appears in no distress. She has some crackles in the bases mostly on the right. Looking through her chart she has a history of CHF. EKG was obtained which shows baseline A-fib without any ischemic changes. chest x-ray andmultiple blood testing was obtained I did order IV access as well. Her D-dimer was significantly elevated. Chest x-ray looks like CHF with effusions bilaterally. BNP was elevated which supports CHF. COVID testing was negative. She does have some mild renal insufficiency with a creatinine 1.25. Troponin was negative. CT angiography shows CHF. There appears to be a small subsegmental PE as well. I did give her Lasix 20 mg IV to treat her congestive heart failure, I did discuss the case with the [facility] in regards to anticoagulation they are going to choose this. The patient has had a head bleed in the past after falling and that is why she is not currently on anticoagulation. 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 Upon my interpretation patient noted to be in a rate controlled A- fib with a rate of 91 Impression & Plan CHF (congestive heart failure), SOB (shortness of breath), A-fib, Sleep disorder, Pulmonary embolism, Lab test negative for COVID-19 virus Discharge Plan Visit Data Chief Complaint: Shortness of Breath/Dyspnea Stated Complaint: SHORTNESS OF BREATH ED Provider: Marcos Raygoza Discharge Problem: CHF (congestive heart failure), SOB (shortness of breath), A-fib, Sleep disorder, Pulmonary embolism, Lab test negative for COVID-19 virus Forms Stand Alone Forms: My [facility] Prescriptions Prescriptions: No Action magnesium oxide [MagOx] 400 mg (241.3 mg magnesium) tablet 400 mg PO QAM cyanocobalamin (vitamin B-12) [Vitamin B-12] 1,000 mcg Tablet 2,000 mcg PO QAM aspirin 81 mg Tablet,Delayed Release (Dr/Ec) 81 mg PO QAM polyethylene glycol 3350 17 gram/dose Powder 17 g PO DAILY PRN (Reason: Constipation) Rx Instructions: MIX IN 8 OUNCES OF ORANGE JUICE OR WATER calcium carbonate-vitamin D3 [Calcium 500 + D] 500 mg(1,250mg) -400 unit Tablet 1 tab PO Q12H lidocaine HCl [Aspercreme (lidocaine HCl)] 4 % Cream 1 applic TOPICAL HS PRN (Reason: Pain) Rx Instructions: topically to feet ferrous sulfate 325 mg (65 mg iron) Tablet 325 mg PO Q OTHER DAY oxymetazoline [Afrin (oxymetazoline)] 0.05 % [place],Non-Aerosol 2 spray INTRANASAL UD PRN (Reason: nose bleeds) Rx Instructions: spray twice into each nostril while inhaling as needed then apply nasal clamp for 45 minutes for nosebleeds levothyroxine 75 mcg tablet 75 mcg PO QAM gabapentin 300 mg capsule 300 mg PO HS fluticasone propionate 50 mcg/actuation spray,suspension 2 spray INTRANASAL HS sennosides-docusate sodium [Senokot-S] 8.6-50 mg Tablet 1 tab-cap PO BID PRN (Reason: Constipation) lidocaine 5 % Adhesive Patch,Medicated 1 patch TOPICAL DAILY PRN (Reason: Pain) Rx Instructions: leave on most painful area for up to 12 hrs furosemide 40 mg tablet 40 mg PO BID Qty: 60 0RF Rx Instructions: Hold if SBP<100 & HR<60 spironolactone 25 mg tablet 25 mg PO QAM Rx Instructions: Hold if SBP<100 & HR<60 acetaminophen [Mapap Arthritis Pain] 650 mg Tablet Extended Release 650 mg PO TID metoprolol tartrate 25 mg tablet 12.5 mg PO BID Rx Instructions: Hold for SBP<90, HR<60 Jardiance 10 mg tablet 10 mg PO DAILY Referrals Referrals: [email or web address] [Primary Care Provider] - Discharge Problem: CHF (congestive heart failure) Qualifiers: Heart failure type: unspecified Heart failure chronicity: acute on chronic Q ualified Code(s): I50.9 - Heart failure, unspecified A-fib Qualifiers: Atrial fibrillation type: unspecified Qualified Code(s): I48.91 - Unspecified atrial fibrillation Pulmonary embolism Qualifiers: Pulmonary embolism type: unspecified Chronicity: unspecified Acute cor pulmonale presence: unspecified Qualified Code(s): I26.99 - Other pulmonary embolism without acute cor pulmonale
--- NOTE | 2023-04-25 08:41 | XRay Report ---
XR chest 1V portable CLINICAL HISTORY: Chest pain, nonspecific TECHNIQUE: Single frontal radiograph of the chest was obtained. Comparison: Comparison is made to chest radiograph 10/02/2022 FINDINGS: An implanted pacemaker is seen. Cardiomegaly is noted. The aortic arch is calcified. There is promine nce and cephalization of the vasculature with Zully B lines seen. Small right and moderate left pleu ral effusions are seen. IMPRESSION: 1. Moderate left and small right pleural effusions, slightly increased from prior exam, with underly ing atelectasis. 2. Cardiomegaly with possible pulmonary edema. ACT 112: Negative or not required by law. Electronically signed by: Clovis Ann M.D. 04/25/2023 8:38 AM
[2023-04-25 08:44] LABS: Basophils # (auto) 0.01 K/uL (0.00-0.20); Basophils % (auto) 0.2 %; Eosinophils # (auto) 0.01 K/uL (0.00-0.50); Eosinophils % (auto) 0.2 %; Hematocrit (blood only) 47.2 % (37.0-47.0); Hemoglobin 15.8 g/dl (12.0-16.0); Immature Granulocytes # (auto) 0.04 K/uL (0.01-0.20); Immature Granulocytes % (auto) 0.7 %; Lymphocytes # (auto) 0.82 K/uL (1.20-3.40); Lymphocytes % (auto) 13.7 %; Mean Corpuscular Hemoglobin 31.8 pg (25.0-34.0); Mean Corpuscular Hgb Conc 33.5 g/dL (32.0-36.0); Mean Platelet Volume 9.5 fL (9.4-12.4); Monocytes # (auto) 0.52 K/uL (0.11-0.59); Monocytes % (auto) 8.7 %; Neutrophils # (auto) 4.59 K/uL (1.40-6.50); Neutrophils % (auto) 76.5 %; Platelet Count 290 K/uL (130-400); RDW Coefficient of Variation 19.9 % (11.5-14.5); Red Blood Count 4.97 M/uL (4.20-5.40); White Blood Count 5.99 K/ul (4.8-10.8)
[2023-04-25 08:59] LABS: Albumin Globulin Ratio 0.9 (0.9-2); Albumin Level 3.2 gm/dl (3.4-5.0); BUN Creatinine Ratio 27.2 (10-20); Bilirubin,Total 1.1 mg/dl (0.2-1.0); Calcium 9.2 mg/dl (8.6-10.3); Creatinine Clr Calc Pharmacy 27.7 ml/min; Est GFR (African American) 45.1 ml/min; Est GFR (Non-African American) 38.9 ml/min; Globulin 3.6 gm/dl (2.5-4.0); Potassium 4.2 mmol/L (3.5-5.1); Total Protein 6.8 gm/dl (6.0-8.3)
[2023-04-25 09:23] LABS: INR 1.1 (0.9-1.1); Partial Thromboplastin Time 29.6 Seconds (21.0-31.0); Prothrombin Time 11.6 Seconds (9.0-12.0)
[2023-04-25 09:27] LABS: D Dimer 4250 ug/L FEU (0-500)
[2023-04-25] MEDS ORDERED: OPTIRAY 320 125ml IV ONE (10:16)
--- NOTE | 2023-04-25 10:31 | CT Scan Report ---
CT angio chest PE protocol CLINICAL HISTORY: PE TECHNIQUE: Multidetector row helical CT of the chest was performed with angiographic protocol. [place]ry l and sagittal reformations were obtained. Coronal and sagittal MIPS were obtained from the axial rashida a set and were submitted for review. Automated dose lowering techniques and/or adjustment according to patient size were utilized for this exam. CT DOSE: 412.38 mGy.cm Comparison: Comparison is made to chest radiograph 04/25/2023 FINDINGS: Lungs and pleura: Moderate bilateral pleural effusions with underlying atelectasis. Smooth interlobul ar septal thickening is seen. Heart and pericardium: Cardiomegaly is seen with biatrial enlargement. No right heart strain is seen. Vessels: There is a small subsegmental pulmonary embolus in the right upper lobe. Pulmonary trunk jl sures 38 mm. Mediastinum and ioana: Unremarkable. Chest wall and lower neck: Unremarkable. Abdomen: Incidental note is made of reflux of contrast into the IVC. Bones: Degenerative changes in the thoracic spine. Multilevel compression deformities are seen most p rominently at T9, T11, and T12. IMPRESSION: 1. Small subsegmental pulmonary embolus. 2. Pulmonary hypertension and biatrial enlargement is seen compatible with heart failure. 3. Moderate bilateral pleural effusions with underlying atelectasis. Likely mild pulmonary edema. ACT 112: Negative or not required by law. Electronically signed by: Clovis Ann M.D. 04/25/2023 10:28 AM
[2023-04-25] MEDS ORDERED: FUROSEMIDE INJ 20 MG/2 ML VIAL IV ONE (10:44)
--- NOTE | 2023-04-25 12:30 | Ultrasound Report ---
US venous doppler LE BI CLINICAL HISTORY: Rule out DVT TECHNIQUE: Bilateral lower extremity real-time compression venous ultrasound with Color Doppler imagi ng. Utilizing real-time ultrasonic imaging multiple real time high-resolution ultrasonic images with compression and noncompression maneuvers of the deep venous system in addition to color doppler imagi ng were performed from the common femoral vein through the proximal calf veins. COMPARISON: None available at the time of this dictation. FINDINGS/IMPRESSION: Currently there is normal compressibility of the deep venous system from the common femoral vein thro ugh the proximal calf veins. No superficial venous thrombosis is identified. ACT 112: Negative or not required by law. Electronically signed by: Clovis Ann M.D. 04/25/2023 12:28 PM
[2023-04-25] MEDS ORDERED: ACETAMINOPHEN 325 MG TAB PO PRN (12:49)
[2023-04-25] MEDS ORDERED: NITROGLYCERIN SL 0.4 MG/TAB TAB SL PRN (12:49)
--- NOTE | 2023-04-25 13:08 | Electrocardiogram Report ---
Test Reason : Blood Pressure : / mmHG Vent. Rate : 091 BPM Atrial Rate : 000 BPM P-R Int : 000 ms QRS Dur : 068 ms QT Int : 434 ms P-R-T Axes : 000 -34 -62 degrees QTc Int : 533 ms Atrial fibrillation with premature ventricular or aberrantly conducted complexes Left axis deviation Low voltage QRS Cannot rule out Anterior infarct , age undetermined Abnormal ECG When compared with ECG of 04-OCT-2022 05:32, QRS voltage has decreased Confirmed by Dontae Barnard ([id number]) on 04/25/2023 1:08:16 PM Referred By: [facility] Confirmed By:Dontae Barnard
--- NOTE | 2023-04-25 13:26 | Cardiology Consultation ---
Date of Consultation April 25, 2023 Assessment & Plan (1) Acute heart failure with preserved ejection fraction (HFpEF): (2) Pulmonary embolism: * Patient has been found to have a subsegmental pulmonary embolism. As noted, she has had a spontaneous intra-abdominal hemorrhage, as well as atraumatic intracerebral hemorrhage. * She states that she ambulates short distances with the assistance of a walker. If she goes to the dining area at her residence, she needs to utilize a wheelchair. * At this time, I feel that the risks of anticoagulation outweigh the benefits and we will therefore avoid systemic anticoagulation at present. * Agree with furosemide 20 mg IV twice daily. * Subcutaneous heparin 5000 units every 8 hours * Monitor kidney function. History of Present Illness Attending Physician: Frank Nolasco MD History of Present Illness Arlene Don is an 87 year old female seen in cardiology consultation per the request of Dr Nolasco for the evaluation of congestive heart failure. Patient describes that at her residence, there was a problem with obtaining a medication that she takes at night (presumably gabapentin) that helps with her peripheral neuropathy pain and helps her sleep. She missed this for several days and had progressive neuropathy pain and has had poor sleep. This was followed by worsening shortness of breath. She presented to the emergency department with initial pulse oximetry of 92% on room air. Chest x-ray and CT are suggestive of mild pulmonary edema. The patient also complained of left greater than right lower extremity edema. Her D-dimer is elevated. The CT angiogram revealed a small subsegmental pulmonary embolism in the right lower lobe. Lower extremity venous duplex was negative for DVT. The patient had been hospitalized in Oct, 2022 for acute on chronic heart failure with preserved ejection fraction. At that time her pacemaker was interrogated. She was noted to be in chronic atrial fibrillation and her pac emaker mode was changed to VVIR (ventricular pacing) with general longevity of 11 years at that time. Problem list: 1.History of atrial fibrillation/flutter, now chronic afib 1.QTc prolongation when loaded with Sotalol. 2.Status post direct-current cardioversion on 11/21/17 with early reoccurrence of atrial fibrillation for which she was prescribed amiodarone post procedure. Cardioversion complicated, requiring intubation with only 50 mg of propofol for sedation. 3.Discontinuation of amiodarone on 05/07/2018 due to side effects. 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 Post procedural pneumothorax, treated conservatively. 2.Hypertension. 3.Chart history of hypertensive encephalopathy. 4.Hyponatremia. 5.Chart history of peripheral artery disease. Allergies Allergy/AdvReac Type Severity Reaction Status Date / Time latex Allergy Unknown Unknown Verified 04/25/23 09:27 mirtazapine Allergy Unknown Rash Verified 04/25/23 09:27 lisinopril AdvReac Unknown Cough Verified 04/25/23 09:27 Home Medications Medication Instructions Recorded Confirmed Type magnesium oxide 400 mg (241.3 mg 400 mg PO QAM 05/11/19 04/25/23 History magnesium) tablet (MagOx) calcium carbonate 500 mg-vitamin 1 tab PO Q12H 02/05/20 04/25/23 History D3 10 mcg (400 unit) tablet (Calcium 500 + D) polyethylene glycol 3350 17 17 g PO DAILY PRN Constipation 02/05/20 04/25/23 History gram/dose oral powder lidocaine HCl 4 % topical cream 1 applic topical HS PRN Pain 05/18/20 04/25/23 History (Aspercreme (lidocaine HCl)) aspirin 81 mg tablet,delayed 81 mg PO QAM 07/21/20 04/25/23 History release cyanocobalamin (vitamin B-12) 2,000 mcg PO QAM 07/21/20 04/25/23 History 1,000 mcg tablet (Vitamin B-12) ferrous sulfate 325 mg (65 mg 325 mg PO Q OTHER DAY 01/03/21 04/25/23 History iron) tablet oxymetazoline 0.05 % nasal spray 2 spray intranasal UD PRN nose 01/03/21 04/25/23 History (Afrin (oxymetazoline)) bleeds fluticasone propionate 50 2 spray intranasal HS 10/02/22 04/25/23 History mcg/actuation nasal spray,suspension gabapentin 300 mg capsule 300 mg PO HS 10/02/22 04/25/23 History levothyroxine 75 mcg tablet 75 mcg PO QAM 10/02/22 04/25/23 History lidocaine 5 % topical patch 1 patch topical DAILY PRN Pain 10/02/22 04/25/23 History sennosides 8.6 mg-docusate sodium 1 tab-cap PO BID PRN Constipation 10/02/22 04/25/23 History 50 mg tablet (Senokot-S) furosemide 40 mg tablet 40 mg PO BID #60 tabs 10/05/22 04/25/23 Rx acetaminophen 650 mg 650 mg PO TID pain 04/25/23 04/25/23 History tablet,extended release empagliflozin 10 mg tablet 10 mg PO DAILY 04/25/23 04/25/23 History (Jardiance) metoprolol tartrate 25 mg tablet 12.5 mg PO BID 04/25/23 04/25/23 History spironolactone 25 mg tablet 25 mg PO QAM 04/25/23 04/25/23 History Patient History Medical History Atrial fibrillation Diastolic heart failure with preserved ejection fraction Acute heart failure with preserved ejection fraction (HFpEF) Decompensated heart failure UTI (urinary tract infection) Metabolic encephalopathy COVID-19 Fracture of neck of scapula TIA (transient ischemic attack) Possible in December 08, 2019 TIA 05/2019 per records. Last seen by neuro= 01/08/20- follow up PRN. Continue ASA. Constipation Anxiety Osteoarthritis Hyperlipidemia Persistent atrial fibrillation Stroke Chronic hyponatremia Sick sinus syndrome S/p pacemaker Hypomagnesemia Atrial fibrillation No AC secondary to history of bleeding issues (traumatic brain hemorrhage/intra- abdominal hemorrhage) Hypothyroidism HTN (hypertension) Surgical History History of pacemaker H/O colonoscopy Family History Other Cancer Social History Smoking Status: Never smoker Second Hand Exposure: No; Do You Dip or Chew Tobacco: No; Hx Alcohol Use: No Hx Substance Use: No Preferred Language: Turkish Communication Ability: Effective Communication Ability Comment: Pt. is alert top person only Biology Teacher Required: No Beliefs That Will Affect Care: None marital status: Current Living Situation: Personal Care Facility Current Living Situation Comment: [facility] with who has dementia current occupational status: retired Feels Safe at Home: Yes Assistive Devices: Walker and Wheelchair Review of Systems Review of Systems: All systems reviewed & are unremarkable except as noted in HPI & below Physical Exam Constitutional: no acute distress (Frail in appearance without acute distress) Respiratory: no respiratory distress, no labored breathing and no cough Auscultation: + diminished lung sounds (Mildly decreased breath sounds at the bases); no crackles and no wheezes Cardiovascular: Rate/Rhythm: + irregularly irregular Heart Sounds: + murmur (1/6 systolic murmur) Extremities: + edema (Trace lower extremity edema) Gastrointestinal (Abdomen): normal bowel sounds, soft, nontender, no hepatosplenomegaly Neurologic: No focal neurologic deficits Results & Data Vital Signs (Past 12 Hours) Vital Signs Temp Pulse Pulse Resp BP BP Pulse Ox 04/25/23 10:19 96 H 18 130/77 96 04/25/23 09:10 74 18 106/83 92 04/25/23 08:01 69 16 128/90 95 04/25/23 06:40 109 H 04/25/23 06:34 36.4 C L 81 21 139/97 91 04/25/23 06:31 36.4 C L 81 21 139/97 91 04/25/23 06:31 92 04/25/23 06:31 O2 Del Method O2 Flow Rate 04/25/23 10:19 Room Air 04/25/23 09:10 Room Air 04/25/23 08:01 Room Air 04/25/23 06:40 04/25/23 06:34 Room Air 04/25/23 06:31 Room Air 04/25/23 06:31 Room Air 0 04/25/23 06:31 Room Air Laboratory Results Cardiac Enzymes 04/25/23 Range/Units 08:27 AST 18 (13-39) U/L Troponin I High Sens 9.0 (0-14) pg/ml B-Natriuretic Peptide 1013 H (0-100) pg/ml Coagulation 04/25/23 Range/Units 08:27 PT 11.6 (9.0-12.0) Seconds APTT 29.6 (21.0-31.0) Seconds B-Natriuretic Peptide 1013 H (0-100) pg/ml CBC 04/25/23 Range/Units 08:27 WBC 5.99 (4.8-10.8) K/ul RBC 4.97 (4.20-5.40) M/uL Hgb 15.8 (12.0-16.0) g/dl Hct 47.2 H (37.0-47.0) % Plt Count 290 (130-400) K/uL Neut # (Auto) 4.59 (1.40-6.50) K/uL Lymph # (Auto) 0.82 L (1.20-3.40) K/uL Gray # (Auto) 0.52 (0.11-0.59) K/uL Eos # (Auto) 0.01 (0.00-0.50) K/uL Baso # (Auto) 0.01 (0.00-0.20) K/uL Comprehensive Metabolic Panel 04/25/23 Range/Units 08:27 Sodium 136 (136-145) mmol/L Potassium 4.2 (3.5-5.1) mmol/L Chloride 96 L (98-107) mmol/L Carbon Dioxide 31 (21-32) mmol/L BUN 34 H (6-23) mg/dl Creatinine 1.25 H (0.6-1.2) mg/dl Glucose 88 (70-99(Fasting)) mg/dl Calcium 9.2 (8.6-10.3) mg/dl AST 18 (13-39) U/L ALT 11 (7-52) U/L Alkaline Phosphatase 78 (34-104) U/L Total Protein 6.8 (6.0-8.3) gm/dl Albumin 3.2 L (3.4-5.0) gm/dl Intake and Output 04/24/23 04/25/23 04/25/23 22:59 06:59 14:59 Other: Weight 54.3 kg 54.9 kg Weight Measurement Method Built in [facility] Built in [facility] Patient Weight 04/26/23 06:59 Weight 54.9 kg Diagnostic Findings Summary of radiology report of CTA chest: 1. Small subsegmental pulmonary embolus. 2. Pulmonary hypertension and biatrial enlargement is seen compatible with heart failure. 3. Moderate bilateral pleural effusions with underlying atelectasis. Likely mild pulmonary edema. LE venous duplex: no DVT EKG performed 04/25/23 and interpreted personally: AF at 91 bpm , non specific diffuse T wave flattening. (2) Pulmonary embolism Acute cor pulmonale presence: unspecified Chronicity: unspecified Pulmonary embolism type: unspecified Qualified Code(s): I26.99 - Other pulmonary embolism without acute cor pulmonale
--- NOTE | 2023-04-25 14:23 | History & Physical Report ---
Date of Service April 25, 2023 Assessment & Plan (1) Acute heart failure with preserved ejection fraction (HFpEF): (2) Atrial fibrillation: (3) Pulmonary embolism: Plan: Patient sent to the ED from [facility] with shortness of breath. Normotensive, afebrile and saturating well on room air. Creatinine/BUN elevated to 1.25/34 BNP elevated 1000 D-dimer was found to be 4000 Chest x-ray personally reviewed; moderate left and small right-sided pleural effusion. consistent with pul edema CTA chest personally reviewed; bilateral pleural effusion present with mild pulmonary edema. Also reported to have a small subsegmental PE in right upper lobe. Venous duplex does not show any DVT EKG personally reviewed; atrial fibrillation with ventricular rate of 91. QTc of 533 For acute on chronic CHF; started on Lasix 40 mg IV twice daily. Strict input and output. Daily weights. Also continue home Jardiance, spironolactone. Cardiology also on board. For atrial fibrillation; rate control with Toprol 12.5 mg twice daily. Discussed with patient's daughter over the phone regarding finding concerning for subsegmental PE in right upper lobe. 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 She was on Coumadin prior to that. Patient's daughter agreed that if bilateral venous duplex is negative; no plans on systemic anticoagulation given the small subsegmental PE noted in the CTA chest. Discussion was done that there is future risks of strokes and further PE. For now, risk of the anticoagulation outweigh the benefit. Patient is placed on heparin subcu as DVT prophylaxis while inpatient. Other conditions; Peripheral neuropathycontinue on gabapentin Hypothyroidismcontinue levothyroxine DNR/DNI DVT prophylaxis heparin Time spent evaluating patient, direct bedside care, chart review, placing orders, interpretation of diagnostic studies, discussion with consultants, patient, and family members, as well as other required patient management activities is 75 minutes. Please note the above document was generated using voice recognition software. It may contain grammatical, syntax or spelling errors. Any formal questions or concerns about the content, text or information contained within the body of this dictation should be directly addressed to the provider for clarification Admission and Anticipated Discharge Date Admission Date: April 25, 2023 History of Present Illness Chief Complaint: Shortness of breath for 1 day Primary Care Provider: [facility] History obtained from chart review and interview with the patient. 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 Discharged on Lasix 40 mg twice daily. It was increased from Lasix 20 mg twice daily. Patient was sent from [facility] with shortness of breath. Patient reports that she has been out of her peripheral neuropathy medication for several days; she reports that that is the reason for her presentation to the hospital. She does endorse some shortness of breath when questioned. She denies any chest pain, palpitation, dizziness, cough or fever. On presentation to the ED, she was normotensive, afebrile and saturating well on room air. Creatinine/BUN elevated to 1.25/34 BNP elevated 1000 D-dimer was found to be 4000 Chest x-ray personally reviewed; moderate left and small right-sided pleural effusion. Also consider pulm edema. CTA chest personally reviewed; bilateral pleural effusion present with mild pulmonary edema. Also reported to have a small subsegmental PE in right upper lobe. Venous duplex does not show any DVT EKG personally reviewed; atrial fibrillation with ventricular rate of 91. QTc of 533 Patient was then admitted to telemetry floor for further management. Allergies Allergy/AdvReac Type Severity Reaction Status Date / Time latex Allergy Unknown Unknown Verified 04/25/23 09:27 mirtazapine Allergy Unknown Rash Verified 04/25/23 09:27 lisinopril AdvReac Unknown Cough Verified 04/25/23 09:27 Home Medications Medication Instructions Recorded Confirmed Type magnesium oxide 400 mg (241.3 mg 400 mg PO QAM 05/11/19 04/25/23 History magnesium) tablet (MagOx) calcium carbonate 500 mg-vitamin 1 tab PO Q12H 02/05/20 04/25/23 History D3 10 mcg (400 unit) tablet (Calcium 500 + D) polyethylene glycol 3350 17 17 g PO DAILY PRN Constipation 02/05/20 04/25/23 History gram/dose oral powder lidocaine HCl 4 % topical cream 1 applic topical HS PRN Pain 05/18/20 04/25/23 History (Aspercreme (lidocaine HCl)) aspirin 81 mg tablet,delayed 81 mg PO QAM 07/21/20 04/25/23 History release cyanocobalamin (vitamin B-12) 2,000 mcg PO QAM 07/21/20 04/25/23 History 1,000 mcg tablet (Vitamin B-12) ferrous sulfate 325 mg (65 mg 325 mg PO Q OTHER DAY 01/03/21 04/25/23 History iron) tablet oxymetazoline 0.05 % nasal spray 2 spray intranasal UD PRN nose 01/03/21 04/25/23 History (Afrin (oxymetazoline)) bleeds fluticasone propionate 50 2 spray intranasal HS 10/02/22 04/25/23 History mcg/actuation nasal spray,suspension gabapentin 300 mg capsule 300 mg PO HS 10/02/22 04/25/23 History levothyroxine 75 mcg tablet 75 mcg PO QAM 10/02/22 04/25/23 History lidocaine 5 % topical patch 1 patch topical DAILY PRN Pain 10/02/22 04/25/23 History sennosides 8.6 mg-docusate sodium 1 tab-cap PO BID PRN Constipation 10/02/22 04/25/23 History 50 mg tablet (Senokot-S) furosemide 40 mg tablet 40 mg PO BID #60 tabs 10/05/22 04/25/23 Rx acetaminophen 650 mg 650 mg PO TID pain 04/25/23 04/25/23 History tablet,extended release empagliflozin 10 mg tablet 10 mg PO DAILY 04/25/23 04/25/23 History (Jardiance) metoprolol tartrate 25 mg tablet 12.5 mg PO BID 04/25/23 04/25/23 History spironolactone 25 mg tablet 25 mg PO QAM 04/25/23 04/25/23 History Past Med/Surg History Medical History Atrial fibrillation Diastolic heart failure with preserved ejection fraction Acute heart failure with preserved ejection fraction (HFpEF) Decompensated heart failure UTI (urinary tract infection) Metabolic encephalopathy COVID-19 Fracture of neck of scapula TIA (transient ischemic attack) Possible in December 08, 2019 TIA 05/2019 per records. Last seen by neuro= 01/08/20- follow up PRN. Continue ASA. Constipation Anxiety Osteoarthritis Hyperlipidemia Persistent atrial fibrillation Stroke Chronic hyponatremia Sick sinus syndrome S/p pacemaker Hypomagnesemia Atrial fibrillation No AC secondary to history of bleeding issues (traumatic brain hemorrhage/intra- abdominal hemorrhage) Hypothyroidism HTN (hypertension) Surgical History History of pacemaker H/O colonoscopy Family History Other Cancer Social History Smoking Status: Never smoker Second Hand Exposure: No; Hx Alcohol Use: No Hx Substance Use: No Preferred Language: American Communication Ability: Effective Communication Ability Comment: prior to today 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 Not in any distress. Hard of hearing Respiratory: Decreased breath sound at bilateral bases. Occasional crackles heard Cardiovascular: Irregular, no murmur, no edema Vessels: no JVD or carotid bruit Chest: normal inspection of chest Abdomen: normal bowel sounds, soft, nontender, no hepatosplenomegaly Musculoskeletal: no cyanosis or clubbing, extremities motor strength 5/5 Skin: no rashes, warm and dry normal turgor Neurologic: PERRL, EOMI, accommodation nl, no face palsy, no dysarthria CN's II- XI intact bilaterally and moves all extremities Psychiatric: A+Ox3, euthymic affect Results & Data Results & Data Vital Signs (Past 12 Hours) Vital Signs Temp Pulse Pulse Resp BP BP Pulse Ox 04/25/23 12:30 89 17 123/104 H 04/25/23 10:19 96 H 18 130/77 96 04/25/23 09:10 74 18 106/83 92 04/25/23 08:01 69 16 128/90 95 04/25/23 06:40 109 H 04/25/23 06:34 36.4 C L 81 21 139/97 91 04/25/23 06:31 36.4 C L 81 21 139/97 91 04/25/23 06:31 92 04/25/23 06:31 O2 Del Method O2 Flow Rate 04/25/23 12:30 04/25/23 10:19 Room Air 04/25/23 09:10 Room Air 04/25/23 08:01 Room Air 04/25/23 06:40 04/25/23 06:34 Room Air 04/25/23 06:31 Room Air 04/25/23 06:31 Room Air 0 04/25/23 06:31 Room Air Laboratory Results Laboratory Results WBC 5.99 K/ul (4.8-10.8) 04/25/23 08:27 RBC 4.97 M/uL (4.20-5.40) 04/25/23 08:27 Hgb 15.8 g/dl (12.0-16.0) 04/25/23 08:27 Hct 47.2 % (37.0-47.0) H 04/25/23 08:27 MCV 95.0 fL (80.0-100.0) 04/25/23 08:27 MCH 31.8 pg (25.0-34.0) 04/25/23 08:27 MCHC 33.5 g/dL (32.0-36.0) 04/25/23 08:27 RDW Std Deviation 67.0 fL (36.4-46.3) H 04/25/23 08:27 RDW Coeff of Del 19.9 % (11.5-14.5) H 04/25/23 08:27 Plt Count 290 K/uL (130-400) 04/25/23 08:27 MPV 9.5 fL (9.4-12.4) 04/25/23 08:27 Immature Gran % (Auto) 0.7 % 04/25/23 08:27 Neut % (Auto) 76.5 % 04/25/23 08:27 Lymph % (Auto) 13.7 % 04/25/23 08:27 Ness % (Auto) 8.7 % 04/25/23 08:27 Eos % (Auto) 0.2 % 04/25/23 08:27 Baso % (Auto) 0.2 % 04/25/23 08:27 Neut # (Auto) 4.59 K/uL (1.40-6.50) 04/25/23 08:27 Lymph # (Auto) 0.82 K/uL (1.20-3.40) L 04/25/23 08:27 Ness # (Auto) 0.52 K/uL (0.11-0.59) 04/25/23 08:27 Eos # (Auto) 0.01 K/uL (0.00-0.50) 04/25/23 08:27 Baso # (Auto) 0.01 K/uL (0.00-0.20) 04/25/23 08:27 Immature Gran # (Auto) 0.04 K/uL (0.01-0.20) 04/25/23 08:27 PT 11.6 Seconds (9.0-12.0) 04/25/23 08:27 INR 1.1 (0.9-1.1) 04/25/23 08:27 APTT 29.6 Seconds (21.0-31.0) 04/25/23 08:27 PTT Ratio 1.0 04/25/23 08:27 D-Dimer 4250 ug/L FEU (0-500) H* 04/25/23 08:27 Sodium 136 mmol/L (136-145) 04/25/23 08:27 Potassium 4.2 mmol/L (3.5-5.1) 04/25/23 08:27 Chloride 96 mmol/L (98-107) L 04/25/23 08:27 Carbon Dioxide 31 mmol/L (21-32) 04/25/23 08:27 Anion Gap 9 (3-11) 04/25/23 08:27 BUN 34 mg/dl (6-23) H 04/25/23 08:27 Creatinine 1.25 mg/dl (0.6-1.2) H 04/25/23 08:27 Est Cr Clr Drug Dosing 27.7 ml/min 04/25/23 08:27 Est GFR ( Amer) 45.1 ml/min 04/25/23 08:27 Est GFR (Non-Af Amer) 38.9 ml/min 04/25/23 08:27 BUN/Creatinine Ratio 27.2 (10-20) H 04/25/23 08:27 Glucose 88 mg/dl (70-99(Fasting)) 04/25/23 08:27 Calcium 9.2 mg/dl (8.6-10.3) 04/25/23 08:27 Total Bilirubin 1.1 mg/dl (0.2-1.0) H 04/25/23 08:27 AST 18 U/L (13-39) 04/25/23 08:27 ALT 11 U/L (7-52) 04/25/23 08:27 Alkaline Phosphatase 78 U/L (34-104) 04/25/23 08:27 Troponin I High Sens 9.0 pg/ml (0-14) 04/25/23 08:27 B-Natriuretic Peptide 1013 pg/ml (0-100) H 04/25/23 08:27 Total Protein 6.8 gm/dl (6.0-8.3) 04/25/23 08:27 Albumin 3.2 gm/dl (3.4-5.0) L 04/25/23 08:27 Globulin 3.6 gm/dl (2.5-4.0) 04/25/23 08:27 Albumin/Globulin Ratio 0.9 (0.9-2) 04/25/23 08:27 Lipase 18 U/L (11-82) 04/25/23 08:27 SARS-CoV-2 (PCR) NEGATIVE (Negative) 04/25/23 07:47 Impressions Chest X-Ray 04/25/23 07:21 XR chest 1V portable CLINICAL HISTORY: Chest pain, nonspecific TECHNIQUE: Single frontal radiograph of the chest was obtained. Comparison: Comparison is made to chest radiograph 10/02/2022 FINDINGS: An implanted pacemaker is seen. Cardiomegaly is noted. The aortic arch is calcified. There is prominence and cephalization of the vasculature with Zully B lines seen. Small right and moderate left pleural effusions are seen. IMPRESSION: 1. Moderate left and small right pleural effusions, slightly increased from prior exam, with underlying atelectasis. 2. Cardiomegaly with possible pulmonary edema. ACT 112: Negative or not required by law. Electronically signed by: Clovis Ann M.D. 04/25/2023 8:38 AM Chest CTA 04/25/23 09:41 CT angio chest PE protocol CLINICAL HISTORY: PE TECHNIQUE: Multidetector row helical CT of the chest was performed with angiographic protocol. Coronal and sagittal reformations were obtained. Coronal and sagittal MIPS were obtained from the axial data set and were submitted for review. Automated dose lowering techniques and/or adjustment according to patient size were utilized for this exam. CT DOSE: 412.38 mGy.cm Comparison: Comparison is made to chest radiograph 04/25/2023 FINDINGS: Lungs and pleura: Moderate bilateral pleural effusions with underlying atelectasis. Smooth interlobular septal thickening is seen. Heart and pericardium: Cardiomegaly is seen with biatrial enlargement. No right heart strain is seen. Vessels: There is a small subsegmental pulmonary embolus in the right upper lobe. Pulmonary trunk measures 38 mm. Mediastinum and ioana: Unremarkable. Chest wall and lower neck: Unremarkable. Abdomen: Incidental note is made of reflux of contrast into the IVC. Bones: Degenerative changes in the thoracic spine. Multilevel compression deformities are seen most prominently at T9, T11, and T12. IMPRESSION: 1. Small subsegmental pulmonary embolus. 2. Pulmonary hypertension and biatrial enlargement is seen compatible with hear t failure. 3. Moderate bilateral pleural effusions with underlying atelectasis. Likely mild pulmonary edema. ACT 112: Negative or not required by law. Electronically signed by: Clovis Ann M.D. 04/25/2023 10:28 AM Venous Doppler Study 04/25/23 11:16 US venous doppler LE BI CLINICAL HISTORY: Rule out DVT TECHNIQUE: Bilateral lower extremity real-time compression venous ultrasound with Color Doppler imaging. Utilizing real-time ultrasonic imaging multiple real time high-resolution ultrasonic images with compression and noncompression maneuvers of the deep venous system in addition to color doppler imaging were performed from the common femoral vein through the proximal calf veins. COMPARISON: None available at the time of this dictation. FINDINGS/IMPRESSION: Currently there is normal compressibility of the deep venous system from the common femoral vein through the proximal calf veins. No superficial venous thrombosis is identified. ACT 112: Negative or not required by law. Electronically signed by: Clovis Ann M.D. 04/25/2023 12:28 PM (3) Pulmonary embolism Acute cor pulmonale presence: unspecified Chronicity: unspecified Pulmonary embolism type: unspecified Qualified Code(s): I26.99 - Other pulmonary embolism without acute cor pulmonale
[2023-04-25] MEDS: EMPAGLIFLOZIN 10 MG TAB PO SCH (14:28)
[2023-04-25] MEDS: ACETAMINOPHEN 325 MG TAB PO SCH ×2 (14:28→21:08)
[2023-04-25] MEDS: LEVOTHYROXINE SODIUM 75 MCG TABLET PO SCH (14:28)
[2023-04-25] MEDS: CALCIUM 600MG + VIT D 400 IU TAB PO SCH ×2 (14:29→21:12)
[2023-04-25] MEDS: SPIRONOLACTONE 25 MG TAB PO SCH (14:29)
[2023-04-25] MEDS: METOPROLOL TARTRATE 25 MG TAB PO SCH ×2 (14:29→21:10)
[2023-04-25] MEDS: ASPIRIN 81 MG ECTAB PO SCH (14:29)
[2023-04-25] MEDS: CYANOCOBALAMIN (B-12) 500 MCG TABLET PO SCH (14:30)
[2023-04-25] MEDS: FERROUS SULFATE 325 MG TAB PO SCH (14:30)
[2023-04-25] MEDS: MAGNESIUM OXIDE 400 MG TAB PO SCH (14:30)
[2023-04-25] MEDS: FUROSEMIDE INJ 20 MG/2 ML VIAL IV SCH ×2 (14:31→16:29)
[2023-04-25] MEDS: HEPARIN SOD 5,000 UNIT/0.5 ML VIAL SQ SCH ×2 (14:35→21:12)
[2023-04-25] MEDS: GABAPENTIN 300 MG CAP PO SCH (21:10)
[2023-04-25] MEDS: FLUTICASONE PROPIONATE NA SPR 16 GM BTL SCH (21:12)
[2023-04-26] MEDS: LEVOTHYROXINE SODIUM 75 MCG TABLET PO SCH (06:02)
[2023-04-26] MEDS: HEPARIN SOD 5,000 UNIT/0.5 ML VIAL SQ SCH ×3 (06:02→21:04)
[2023-04-26] MEDS: EMPAGLIFLOZIN 10 MG TAB PO SCH (08:13)
[2023-04-26] MEDS: FUROSEMIDE INJ 20 MG/2 ML VIAL IV SCH (08:13)
[2023-04-26] MEDS: MAGNESIUM OXIDE 400 MG TAB PO SCH (08:13)
[2023-04-26] MEDS: CALCIUM 600MG + VIT D 400 IU TAB PO SCH ×2 (08:13→20:18)
[2023-04-26] MEDS: CYANOCOBALAMIN (B-12) 500 MCG TABLET PO SCH (08:13)
[2023-04-26] MEDS: METOPROLOL TARTRATE 25 MG TAB PO SCH ×2 (08:13→20:21)
[2023-04-26] MEDS: SPIRONOLACTONE 25 MG TAB PO SCH (08:13)
[2023-04-26] MEDS: ASPIRIN 81 MG ECTAB PO SCH (08:14)
[2023-04-26] MEDS: ACETAMINOPHEN 325 MG TAB PO SCH ×3 (08:14→20:22)
--- NOTE | 2023-04-26 10:26 | Cardiology Progress Note ---
Date of Service April 26, 2023 Assessment & Plan (1) Acute heart failure with preserved ejection fraction (HFpEF): (2) Pulmonary embolism: Plan: * Patient has been found to have a subsegmental pulmonary embolism. As noted, she has had a spontaneous intra-abdominal hemorrhage, as well as atraumatic intracerebral hemorrhage. * BMP ordered. * furosemide 20 mg IV twice daily. Possibly increase the dose , depending on the results of pt's chemistry panel. * Subcutaneous heparin 5000 units every 8 hours Admission and Anticipated Discharge Date Admission Date: April 25, 2023 Subjective Patient seen in cardiology follow up. Notes ongoing shortness of breath. Telemetry reveals AF , rate controlled in the 80s . Physical Exam Constitutional: no acute distress (Frail in appearance without acute distress) Respiratory: no respiratory distress, no labored breathing and no cough Auscultation: + diminished lung sounds (Mildly decreased breath sounds at the bases); no crackles and no wheezes Cardiovascular: Rate/Rhythm: + irregularly irregular Heart Sounds: + murmur (1/6 systolic murmur) Extremities: no edema Gastrointestinal (Abdomen): normal bowel sounds, soft, nontender, no hepatosplenomegaly Results & Data Vital Signs (Past 12 Hours) Vital Signs Temp Pulse Resp BP BP Pulse Ox O2 Del Method 04/26/23 08:57 36.1 C L 83 20 125/73 96 Room Air 04/26/23 08:00 Room Air 04/26/23 02:33 36.4 C L 70 20 100/56 L 92 Room Air 04/25/23 23:45 95/61 L 04/25/23 22:47 36.4 C L 76 20 87/63 L 92 Room Air (2) Pulmonary embolism Acute cor pulmonale presence: unspecified Chronicity: unspecified Pulmonary embolism type: unspecified Qualified Code(s): I26.99 - Other pulmonary embolism without acute cor pulmonale
[2023-04-26 11:08] LABS: BUN Creatinine Ratio 27.3 (10-20); Calcium 8.6 mg/dl (8.6-10.3); Creatinine Clr Calc Pharmacy 29.4 ml/min; Est GFR (African American) 46.9 ml/min; Est GFR (Non-African American) 40.5 ml/min; Potassium 3.7 mmol/L (3.5-5.1)
[2023-04-26] MEDS ORDERED: FUROSEMIDE 40 MG/4 ML VIAL IV ONE (13:20)
--- NOTE | 2023-04-26 13:22 | Hospitalist Progress Note ---
Date of Service April 26, 2023 Assessment & Plan (1) Acute heart failure with preserved ejection fraction (HFpEF): (2) Atrial fibrillation: (3) Pulmonary embolism: Plan: [facility]. Normotensive, afebrile and saturating well on room air. Creatinine/BUN elevated to 1.25/34 BNP elevated 1000 D-dimer was found to be 4000 Chest x-ray personally reviewed; moderate left and small right-sided pleural effusion. consistent with pul edema CTA chest personally reviewed; bilateral pleural effusion present with mild pulmonary edema. Also reported to have a small subsegmental PE in right upper lobe. Venous duplex does not show any DVT EKG personally reviewed; atrial fibrillation with ventricular rate of 91. QTc of 533 For acute on chronic CHF; will give her 1 dose of Lasix 40 mg IV today. Will reassess need for additional diuretics tomorrow. For atrial fibrillation; rate control with Toprol 12.5 mg twice daily. Discussed with patient's daughter over the phone on April 26, 2023 regarding finding concerning for subsegmental PE in right upper lobe. 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 She was on Coumadin prior to that. Patient's daughter agreed that if bilateral venous duplex is negative; no plans on systemic anticoagulation given the small subsegmental PE noted in the CTA chest. Discussion was done that there is future risks of strokes and further PE. For now, risk of the anticoagulation outweigh the benefit. Patient is placed on heparin subcu as DVT prophylaxis while inpatient. Other conditions; Peripheral neuropathycontinue on gabapentin Hypothyroidismcontinue levothyroxine DNR/DNI DVT prophylaxis heparin Time spent evaluating patient, direct bedside care, chart review, placing orders, interpretation of diagnostic studies, discussion with consultants, patient, and family members, as well as other required patient management activities is 50 minutes. Please note the above document was generated using voice recognition software. It may contain grammatical, syntax or spelling errors. Any formal questions or concerns about the content, text or information contained within the body of this dictation should be directly addressed to the provider for clarification Admission and Anticipated Discharge Date Admission Date: April 25, 2023 Subjective Patient seen and examined at bedside. She continues to report shortness of breath. Afebrile, saturating well on room air. Review of Systems Review of Systems: All systems reviewed & are unremarkable except as noted in Subjective Physical Exam Physical Exam: Constitutional: Alert orient x 3. Not in any distress. Hard of hearing Respiratory: Decreased breath sound at bilateral bases. Occasional crackles heard Cardiovascular: Irregular, no murmur, no edema Vessels: no JVD or carotid bruit Chest: normal inspection of chest Abdomen: normal bowel sounds, soft, nontender, no hepatosplenomegaly Musculoskeletal: no cyanosis or clubbing, extremities motor strength 5/5 Skin: no rashes, warm and dry normal turgor Neurologic: PERRL, EOMI, accommodation nl, no face palsy, no dysarthria CN's II- XI intact bilaterally and moves all extremities Psychiatric: A+Ox3, euthymic affect Results & Data Results & Data Vital Signs (Past 12 Hours) Vital Signs Temp Pulse Resp BP BP Pulse Ox O2 Del Method 04/26/23 12:18 36.3 C L 79 16 116/78 93 Room Air 04/26/23 08:57 36.1 C L 83 20 125/73 96 Room Air 04/26/23 08:00 Room Air 04/26/23 02:33 36.4 C L 70 20 100/56 L 92 Room Air (3) Pulmonary embolism Acute cor pulmonale presence: unspecified Chronicity: unspecified Pulmonary embolism type: unspecified Qualified Code(s): I26.99 - Other pulmonary embolism without acute cor pulmonale
[2023-04-26] MEDS ORDERED: POTASSIUM CHLORIDE CRTAB 20 MEQ TABCR PO STA (15:57)
[2023-04-26] MEDS: GABAPENTIN 300 MG CAP PO SCH (20:19)
[2023-04-26] MEDS: FLUTICASONE PROPIONATE NA SPR 16 GM BTL SCH (20:19)
[2023-04-26] MEDS: FUROSEMIDE 40 MG/4 ML VIAL IV SCH (20:19)
[2023-04-27] MEDS: HEPARIN SOD 5,000 UNIT/0.5 ML VIAL SQ SCH ×3 (06:10→21:05)
[2023-04-27] MEDS: LEVOTHYROXINE SODIUM 75 MCG TABLET PO SCH (06:11)
[2023-04-27 07:54] LABS: BUN Creatinine Ratio 26.3 (10-20); Calcium 8.7 mg/dl (8.6-10.3); Creatinine Clr Calc Pharmacy 25.7 ml/min; Est GFR (African American) 40.4 ml/min; Est GFR (Non-African American) 34.8 ml/min; Potassium 4.7 mmol/L (3.5-5.1)
[2023-04-27] MEDS: CALCIUM 600MG + VIT D 400 IU TAB PO SCH ×2 (09:36→21:06)
[2023-04-27] MEDS: ACETAMINOPHEN 325 MG TAB PO SCH ×3 (09:36→21:05)
[2023-04-27] MEDS: CYANOCOBALAMIN (B-12) 500 MCG TABLET PO SCH (09:37)
[2023-04-27] MEDS: ASPIRIN 81 MG ECTAB PO SCH (09:38)
[2023-04-27] MEDS: MAGNESIUM OXIDE 400 MG TAB PO SCH (09:38)
[2023-04-27] MEDS: EMPAGLIFLOZIN 10 MG TAB PO SCH (09:39)
[2023-04-27] MEDS: SPIRONOLACTONE 25 MG TAB PO SCH (09:39)
[2023-04-27] MEDS: FUROSEMIDE 40 MG/4 ML VIAL IV SCH ×2 (09:39→16:31)
[2023-04-27] MEDS: METOPROLOL TARTRATE 25 MG TAB PO SCH ×2 (09:39→21:06)
[2023-04-27] MEDS: FERROUS SULFATE 325 MG TAB PO SCH (09:40)
--- NOTE | 2023-04-27 11:25 | Hospitalist Progress Note ---
Date of Service April 27, 2023 Assessment & Plan (1) Acute heart failure with preserved ejection fraction (HFpEF): (2) Atrial fibrillation: (3) Pulmonary embolism: Plan: Patient sent to the ED from personal long term with shortness of breath. Normotensive, afebrile and saturating well on room air. Creatinine/BUN slightly elevated BNP elevated 1000 D-dimer was found to be 4000 Chest x-ray on admission personally reviewed; moderate left and small right- sided pleural effusion. consistent with pul edema CTA chest personally reviewed; bilateral pleural effusion present with mild pulmonary edema. Also reported to have a small subsegmental PE in right upper lobe. Venous duplex does not show any DVT EKG personally reviewed; atrial fibrillation with ventricular rate of 91. QTc of 533 For acute on chronic CHF; will continue on Lasix 40 mg twice daily today. Strict input output, daily weights. For atrial fibrillation; rate control with Toprol 12.5 mg twice daily. Discussed with patient's daughter over the phone on April 26, 2023 regarding finding concerning for subsegmental PE in right upper lobe. 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 She was on Coumadin prior to that. Patient's daughter agreed that if bilateral venous duplex is negative; no plans on systemic anticoagulation given the small subsegmental PE noted in the CTA chest. Discussion was done that there is future risks of strokes and further PE. For now, risk of the anticoagulation outweigh the benefit. Patient is placed on heparin subcu as DVT prophylaxis while inpatient. Other conditions; Peripheral neuropathycontinue on gabapentin Hypothyroidismcontinue levothyroxine DNR/DNI DVT prophylaxis heparin Time spent evaluating patient, direct bedside care, chart review, placing orders, interpretation of diagnostic studies, discussion with consultants, patient, and family members, as well as other required patient management activities is 48 minutes. Please note the above document was generated using voice recognition software. It may contain grammatical, syntax or spelling errors. Any formal questions or concerns about the content, text or information contained within the body of this dictation should be directly addressed to the provider for clarification Admission and Anticipated Discharge Date Admission Date: April 25, 2023 Subjective Patient seen and examined at bedside. She reports that she is feeling slightly better with her breathing. Urine output of nearly 2 L in last 24 hours. On 2 L of oxygen by nasal cannula Review of Systems Review of Systems: All systems reviewed & are unremarkable except as noted in Subjective Physical Exam Physical Exam: Constitutional: Alert orient x 3. Not in any distress. Hard of hearing Respiratory: Decreased breath sound at bilateral bases. Occasional crackles heard Cardiovascular: Irregular, no murmur, no edema Vessels: no JVD or carotid bruit Chest: normal inspection of chest Abdomen: normal bowel sounds, soft, nontender, no hepatosplenomegaly Musculoskeletal: no cyanosis or clubbing, extremities motor strength 5/5 Skin: no rashes, warm and dry normal turgor Neurologic: PERRL, EOMI, accommodation nl, no face palsy, no dysarthria CN's II- XI intact bilaterally and moves all extremities Psychiatric: A+Ox3, euthymic affect Results & Data Results & Data Vital Signs (Past 12 Hours) Vital Signs Temp Pulse Resp BP BP Pulse Ox O2 Del Method 04/27/23 08:15 Room Air 04/27/23 08:06 36.8 C 120 H 20 110/78 92 Room Air 04/27/23 03:10 36.5 C 83 18 96/55 L 94 Nasal Cannula O2 Flow Rate 04/27/23 08:15 04/27/23 08:06 04/27/23 03:10 2 Laboratory Results Laboratory Results WBC 5.99 K/ul (4.8-10.8) 04/25/23 08:27 RBC 4.97 M/uL (4.20-5.40) 04/25/23 08:27 Hgb 15.8 g/dl (12.0-16.0) 04/25/23 08:27 Hct 47.2 % (37.0-47.0) H 04/25/23 08:27 MCV 95.0 fL (80.0-100.0) 04/25/23 08:27 MCH 31.8 pg (25.0-34.0) 04/25/23 08:27 MCHC 33.5 g/dL (32.0-36.0) 04/25/23 08:27 RDW Std Deviation 67.0 fL (36.4-46.3) H 04/25/23 08:27 RDW Coeff of Del 19.9 % (11.5-14.5) H 04/25/23 08:27 Plt Count 290 K/uL (130-400) 04/25/23 08: MPV 9.5 fL (9.4-12.4) 04/25/23 08: Immature Gran % (Auto) 0.7 % 04/25/23 08: Neut % (Auto) 76.5 % 04/25/23 08: Lymph % (Auto) 13.7 % 04/25/23 08: [place] % (Auto) 8.7 % 04/25/23 08: Eos % (Auto) 0.2 % 04/25/23 08: Baso % (Auto) 0.2 % 04/25/23 08: Neut # (Auto) 4.59 K/uL (1.40-6.50) 04/25/23 08: Lymph # (Auto) 0.82 K/uL (1.20-3.40) L 04/25/23 08: [place] # (Auto) 0.52 K/uL (0.11-0.59) 04/25/23 08: Eos # (Auto) 0.01 K/uL (0.00-0.50) 04/25/23 08: Baso # (Auto) 0.01 K/uL (0.00-0.20) 04/25/23 08: Immature Gran # (Auto) 0.04 K/uL (0.01-0.20) 04/25/23 08: PT 11.6 Seconds (9.0-12.0) 04/25/23 08: INR 1.1 (0.9-1.1) 04/25/23 08: APTT 29.6 Seconds (21.0-31.0) 04/25/23 08: PTT Ratio 1.0 04/25/23 08:27 D-Dimer 4250 ug/L FEU (0-500) H* 04/25/23 08:27 Sodium 139 mmol/L (136-145) 04/27/23 07:00 Potassium 4.7 mmol/L (3.5-5.1) D 04/27/23 07:00 Chloride 100 mmol/L (98-107) 04/27/23 07:00 Carbon Dioxide 35 mmol/L (21-32) H 04/27/23 07:00 Anion Gap 4 (3-11) 04/27/23 07:00 BUN 36 mg/dl (6-23) H 04/27/23 07:00 Creatinine 1.37 mg/dl (0.6-1.2) H 04/27/23 07:00 Est Cr Clr Drug Dosing 25.7 ml/min 04/27/23 07:00 Est GFR ( Amer) 40.4 ml/min 04/27/23 07:00 Est GFR (Non-Af Amer) 34.8 ml/min 04/27/23 07:00 BUN/Creatinine Ratio 26.3 (10-20) H 04/27/23 07:00 Glucose 78 mg/dl (70-99(Fasting)) 04/27/23 07:00 Calcium 8.7 mg/dl (8.6-10.3) 04/27/23 07:00 Total Bilirubin 1.1 mg/dl (0.2-1.0) H 04/25/23 08:27 AST 18 U/L (13-39) 04/25/23 08:27 ALT 11 U/L (7-52) 04/25/23 08:27 Alkaline Phosphatase 78 U/L (34-104) 04/25/23 08:27 Troponin I High Sens 9.0 pg/ml (0-14) 04/25/23 08:27 B-Natriuretic Peptide 1013 pg/ml (0-100) H 04/25/23 08:27 Total Protein 6.8 gm/dl (6.0-8.3) 04/25/23 08:27 Albumin 3.2 gm/dl (3.4-5.0) L 04/25/23 08:27 Globulin 3.6 gm/dl (2.5-4.0) 04/25/23 08:27 Albumin/Globulin Ratio 0.9 (0.9-2) 04/25/23 08:27 Lipase 18 U/L (11-82) 04/25/23 08:27 Nasal Screen MRSA (PCR) Negative (Negative) 04/25/23 13:30 SARS-CoV-2 (PCR) NEGATIVE (Negative) 04/25/23 07:47 Impressions Chest X-Ray 04/25/23 07:21 XR chest 1V portable CLINICAL HISTORY: Chest pain, nonspecific TECHNIQUE: Single frontal radiograph of the chest was obtained. Comparison: Comparison is made to chest radiograph 10/02/2022 FINDINGS: An implanted pacemaker is seen. Cardiomegaly is noted. The aortic arch is calcified. There is prominence and cephalization of the vasculature with Zully B lines seen. Small right and moderate left pleural effusions are seen. IMPRESSION: 1. Moderate left and small right pleural effusions, slightly increased from prior exam, with underlying atelectasis. 2. Cardiomegaly with possible pulmonary edema. ACT 112: Negative or not required by law. Electronically signed by: Clovis Ann M.D. 04/25/2023 8:38 AM Chest CTA 04/25/23 09:41 CT angio chest PE protocol CLINICAL HISTORY: PE TECHNIQUE: Multidetector row helical CT of the chest was performed with angiographic protocol. Coronal and sagittal reformations were obtained. Coronal and sagittal MIPS were obtained from the axial data set and were submitted for review. Automated dose lowering techniques and/or adjustment according to patient size were utilized for this exam. CT DOSE: 412.38 mGy.cm Comparison: Comparison is made to chest radiograph 04/25/2023 FINDINGS: Lungs and pleura: Moderate bilateral pleural effusions with underlying atelectasis. Smooth interlobular septal thickening is seen. Heart and pericardium: Cardiomegaly is seen with biatrial enlargement. No right heart strain is seen. Vessels: There is a small subsegmental pulmonary embolus in the right upper lobe. Pulmonary trunk measures 38 mm. Mediastinum and ioana: Unremarkable. Chest wall and lower neck: Unremarkable. Abdomen: Incidental note is made of reflux of contrast into the IVC. Bones: Degenerative changes in the thoracic spine. Multilevel compression deformities are seen most prominently at T9, T11, and T12. IMPRESSION: 1. Small subsegmental pulmonary embolus. 2. Pulmonary hypertension and biatrial enlargement is seen compatible with heart failure. 3. Moderate bilateral pleural effusions with underlying atelectasis. Likely mild pulmonary edema. ACT 112: Negative or not required by law. Electronically signed by: Clovis Ann M.D. 04/25/2023 10:28 AM Venous Doppler Study 04/25/23 11:16 US venous doppler LE BI CLINICAL HISTORY: Rule out DVT TECHNIQUE: Bilateral lower extremity real-time compression venous ultrasound with Color Doppler imaging. Utilizing real-time ultrasonic imaging multiple real time high-resolution ultrasonic images with compression and noncompression maneuvers of the deep venous system in addition to color doppler imaging were performed from the common femoral vein through the proximal calf veins. COMPARISON: None available at the time of this dictation. FINDINGS/IMPRESSION: Currently there is normal compressibility of the deep venous system from the common femoral vein through the proximal calf veins. No superficial venous thrombosis is identified. ACT 112: Negative or not required by law. Electronically signed by: Clovis Ann M.D. 04/25/2023 12:28 PM (3) Pulmonary embolism Acute cor pulmonale presence: unspecified Chronicity: unspecified Pulmonary embolism type: unspecified Qualified Code(s): I26.99 - Other pulmonary embolism without acute cor pulmonale
--- NOTE | 2023-04-27 13:39 | Cardiology Progress Note ---
Date of Service April 27, 2023 Assessment & Plan (1) Acute heart failure with preserved ejection fraction (HFpEF): (2) Pulmonary embolism: (3) Pleural effusion: (4) A-fib: (5) Acute on chronic renal insufficiency: Plan Patient found to have a subsegmental pulmonary embolism. As noted, she has had a spontaneous intra-abdominal hemorrhage, as well as atraumatic intracerebral hemorrhage. Continue subcutaneous heparin as ordered. BUN/creatinine trending upward. Recommend reducing furosemide back to 20 mg IV twice daily. Follow daily weight, fluid balance, electrolytes, and GFR. Telemetry demonstrates rate controlled atrial fibrillation. Continue metoprolol and low-dose aspirin. Admission and Anticipated Discharge Date Admission Date: April 25, 2023 Subjective Patient seen examined the bedside. Fluid balance -1.5 L. Creatinine trending upward to 1.37 today. Denies chest pain or shortness of breath at rest. Telemetry reveals atrial fibrillation with heart rate predominantly 70/80s. At times heart rate trends up to the 110s. Denies palpitations, lightheadedness, or dizziness. Review of Systems Review of Systems: All systems reviewed & are unremarkable except as noted in Subjective Physical Exam Constitutional: + ill appearing and + cachectic; no acut e distress Respiratory: no respiratory distress, no labored breathing and no retractions Auscultation: + diminished lung sounds (Bases bilateral) Cardiovascular: Rate/Rhythm: + irregularly irregular Heart Sounds: normal S1 and normal S2; no murmur Extremities: no edema Gastrointestinal (Abdomen): Inspection/Auscultation: normal bowel sounds; abdomen not distended Percussion/Palpation: abdomen soft; abdomen nontender, no guarding and abdomen not rigid Neurologic: CN's II-XI intact bilaterally and moves all extremities; no focal motor deficits Results & Data Vital Signs (Past 12 Hours) Vital Signs Temp Pulse Pulse Resp BP BP Pulse Ox 04/27/23 12:00 101/68 04/27/23 11:38 36.7 C 90 16 97/72 L 95 04/27/23 08:15 04/27/23 08:06 36.8 C 120 H 20 110/78 92 04/27/23 07:00 92 H 04/27/23 03:10 36.5 C 83 18 96/55 L 94 O2 Del Method O2 Flow Rate 04/27/23 12:00 04/27/23 11:38 Nasal Cannula 2 04/27/23 08:15 Room Air 04/27/23 08:06 Room Air 04/27/23 07:00 04/27/23 03:10 Nasal Cannula 2 Laboratory Results Comprehensive Metabolic Panel 04/27/23 Range/Units 07:00 Sodium 139 (136-145) mmol/L Potassium 4.7 D (3.5-5.1) mmol/L Chloride 100 (98-107) mmol/L Carbon Dioxide 35 H (21-32) mmol/L BUN 36 H (6-23) mg/dl Creatinine 1.37 H (0.6-1.2) mg/dl Glucose 78 (70-99(Fasting)) mg/dl Calcium 8.7 (8.6-10.3) mg/dl Intake and Output 04/26/23 04/27/23 04/27/23 22:59 06:59 14:59 Intake Total 60 / 300 Output Total 650 / 1850 750 / 1850 Balance -650 / -1550 -690 / -1550 Intake: Oral 60 / 300 Output: Urine Amount (Catheter) 650 / 1850 750 / 1850 External 650 / 1850 750 / 1850 Other: Weight 55.3 kg Weight Measurement Method Built in [facility] (2) Pulmonary embolism Acute cor pulmonale presence: unspecified Chronicity: unspecified Pulmonary embolism type: unspecified Qualified Code(s): I26.99 - Other pulmonary embolism without acute cor pulmonale (4) A-fib Atrial fibrillation type: unspecified Qualified Code(s): I48.91 - Unspecified atrial fibrillation
[2023-04-27] MEDS: DOCUSATE SODIUM/SENNA 50/8.6MG TAB PO PRN (21:04)
[2023-04-27] MEDS: FLUTICASONE PROPIONATE NA SPR 16 GM BTL SCH (21:04)
[2023-04-27] MEDS: POLYETHYLENE (MIRALAX) 17 GM PACK PO PRN (21:04)
[2023-04-27] MEDS: GABAPENTIN 300 MG CAP PO SCH (21:06)
[2023-04-28] MEDS: HEPARIN SOD 5,000 UNIT/0.5 ML VIAL SQ SCH ×3 (05:42→23:05)
[2023-04-28] MEDS: LEVOTHYROXINE SODIUM 75 MCG TABLET PO SCH (05:43)
[2023-04-28 07:02] LABS: Basophils # (auto) 0.04 K/uL (0.00-0.20); Basophils % (auto) 0.6 %; Eosinophils # (auto) 0.03 K/uL (0.00-0.50); Eosinophils % (auto) 0.5 %; Hematocrit (blood only) 43.8 % (37.0-47.0); Hemoglobin 14.5 g/dl (12.0-16.0); Immature Granulocytes # (auto) 0.02 K/uL (0.01-0.20); Immature Granulocytes % (auto) 0.3 %; Lymphocytes # (auto) 0.98 K/uL (1.20-3.40); Lymphocytes % (auto) 15.3 %; Mean Corpuscular Hemoglobin 31.7 pg (25.0-34.0); Mean Corpuscular Hgb Conc 33.1 g/dL (32.0-36.0); Mean Corpuscular Volume 95.8 fL (80.0-100.0); Mean Platelet Volume 9.7 fL (9.4-12.4); Monocytes # (auto) 0.73 K/uL (0.11-0.59); Monocytes % (auto) 11.4 %; Neutrophils % (auto) 71.9 %; Platelet Count 263 K/uL (130-400); RDW Coefficient of Variation 19.4 % (11.5-14.5); RDW Standard Deviation 67.2 fL (36.4-46.3); Red Blood Count 4.57 M/uL (4.20-5.40)
[2023-04-28 07:20] LABS: BUN Creatinine Ratio 38.1 (10-20); Creatinine Clr Calc Pharmacy 32.7 ml/min; Est GFR (African American) 61.3 ml/min; Est GFR (Non-African American) 52.9 ml/min; Potassium 4.5 mmol/L (3.5-5.1)
[2023-04-28] MEDS: METOPROLOL TARTRATE 25 MG TAB PO SCH ×2 (07:31→20:06)
[2023-04-28] MEDS: SPIRONOLACTONE 25 MG TAB PO SCH (07:32)
[2023-04-28] MEDS: CALCIUM 600MG + VIT D 400 IU TAB PO SCH ×2 (07:33→20:07)
[2023-04-28] MEDS: ASPIRIN 81 MG ECTAB PO SCH (07:33)
[2023-04-28] MEDS: EMPAGLIFLOZIN 10 MG TAB PO SCH (07:33)
[2023-04-28] MEDS: MAGNESIUM OXIDE 400 MG TAB PO SCH (07:33)
[2023-04-28] MEDS: CYANOCOBALAMIN (B-12) 500 MCG TABLET PO SCH (07:33)
[2023-04-28] MEDS: ACETAMINOPHEN 325 MG TAB PO SCH ×3 (07:34→20:05)
[2023-04-28] MEDS: FUROSEMIDE 40 MG/4 ML VIAL IV SCH ×2 (07:35→16:16)
--- NOTE | 2023-04-28 13:25 | Hospitalist Progress Note ---
Date of Service April 28, 2023 Assessment & Plan (1) Acute heart failure with preserved ejection fraction (HFpEF): (2) Atrial fibrillation: (3) Pulmonary embolism: Plan: Patient sent to the ED from personal shelter with shortness of breath. Creatinine/BUN slightly elevated on admission BNP elevated 1000 D-dimer was found to be 4000 Chest x-ray on admission personally reviewed; moderate left and small right- sided pleural effusion. consistent with pul edema CTA chest personally reviewed; bilateral pleural effusion present with mild pulmonary edema. Also reported to have a small subsegmental PE in right upper lobe. Venous duplex does not show any DVT EKG personally reviewed; atrial fibrillation with ventricular rate of 91. QTc of 533 For acute on chronic CHF; Lasix was decreased down to 20 mg twice daily yesterday. Increased up to 40 mg twice daily. Strict KRISTIE's. Wean oxygen as tolerated. Continue on aspirin lactone. For atrial fibrillation; rate control with Toprol 12.5 mg twice daily. Discussed with patient's daughter over the phone on April 26, 2023 regarding finding concerning for subsegmental PE in right upper lobe. 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 She was on Coumadin prior to that. Patient's daughter agreed that if bilateral venous duplex is negative; no plans on systemic anticoagulation given the small subsegmental PE noted in the CTA chest. Discussion was done that there is future risks of strokes and further PE. For now, risk of the anticoagulation outweigh the benefit. Patient is placed on heparin subcu as DVT prophylaxis while inpatient. Other conditions; Peripheral neuropathycontinue on gabapentin Hypothyroidismcontinue levothyroxine DNR/DNI DVT prophylaxis heparin Time spent evaluating patient, direct bedside care, chart review, placing orders, interpretation of diagnostic studies, discussion with consultants, patient, and family members, as well as other required patient management activities is 50 minutes. Please note the above document was generated using voice recognition software. It may contain grammatical, syntax or spelling errors. Any formal questions or concerns about the content, text or information contained within the body of this dictation should be directly addressed to the provider for clarification Admission and Anticipated Discharge Date Admission Date: April 25, 2023 Subjective Patient seen and examined at bedside. She reports that she easily gets short of breath on minimal exertion. Review of Systems Review of Systems: All systems reviewed & are unremarkable except as noted in Subjective Physical Exam Physical Exam: Constitutional: Alert orient x 3. Not in any distress. Hard of hearing Respiratory: Decreased breath sound at bilateral bases. Occasional crackles heard Cardiovascular: Irregular, no murmur, no edema Vessels: no JVD or carotid bruit Chest: normal inspection of chest Abdomen: normal bowel sounds, soft, nontender, no hepatosplenomegaly Musculoskeletal: no cyanosis or clubbing, extremities motor strength 5/5 Skin: no rashes, warm and dry normal turgor Neurologic: PERRL, EOMI, accommodation nl, no face palsy, no dysarthria CN's II- XI intact bilaterally and moves all extremities Psychiatric: A+Ox3, euthymic affect Results & Data Results & Data Vital Signs (Past 12 Hours) Vital Signs Temp Pulse Pulse Resp BP Pulse Ox O2 Del Method 04/28/23 11:13 Nasal Cannula 04/28/23 10:44 36.3 C L 92 H 20 102/70 94 Room Air 04/28/23 10:25 94 04/28/23 07:00 107 H 04/28/23 03:57 36.1 C L 86 27 H 92/59 L 91 Nasal Cannula O2 Flow Rate 04/28/23 11:13 2 04/28/23 10:44 2 04/28/23 10:25 04/28/23 07:00 04/28/23 03:57 2 Laboratory Results Laboratory Results WBC 6.40 K/ul (4.8-10.8) 04/28/23 06:42 RBC 4.57 M/uL (4.20-5.40) 04/28/23 06:42 Hgb 14.5 g/dl (12.0-16.0) 04/28/23 06:42 Hct 43.8 % (37.0-47.0) 04/28/23 06:42 MCV 95.8 fL (80.0-100.0) 04/28/23 06:42 MCH 31.7 pg (25.0-34.0) 04/28/23 06:42 MCHC 33.1 g/dL (32.0-36.0) 04/28/23 06:42 RDW Std Deviation 67.2 fL (36.4-46.3) H 04/28/23 06:42 RDW Coeff of Del 19.4 % (11.5-14.5) H 04/28/23 06:42 Plt Count 263 K/uL (130-400) 04/28/23 06:42 MPV 9.7 fL (9.4-12.4) 04/28/23 06:42 Immature Gran % (Auto) 0.3 % 04/28/23 06:42 Neut % (Auto) 71.9 % 04/28/23 06:42 Lymph % (Auto) 15.3 % 04/28/23 06:42 [place] % (Auto) 11.4 % 04/28/23 06:42 Eos % (Auto) 0.5 % 04/28/23 06:42 Baso % (Auto) 0.6 % 04/28/23 06:42 Neut # (Auto) 4.60 K/uL (1.40-6.50) 04/28/23 06:42 Lymph # (Auto) 0.98 K/uL (1.20-3.40) L 04/28/23 06:42 [place] # (Auto) 0.73 K/uL (0.11-0.59) H 04/28/23 06:42 Eos # (Auto) 0.03 K/uL (0.00-0.50) 04/28/23 06:42 Baso # (Auto) 0.04 K/uL (0.00-0.20) 04/28/23 06:42 Immature Gran # (Auto) 0.02 K/uL (0.01-0.20) 04/28/23 06:42 PT 11.6 Seconds (9.0-12.0) 04/25/23 08:27 INR 1.1 (0.9-1.1) 04/25/23 08:27 APTT 29.6 Seconds (21.0-31.0) 04/25/23 08:27 PTT Ratio 1.0 04/25/23 08:27 D-Dimer 4250 ug/L FEU (0-500) H* 04/25/23 08:27 Sodium 139 mmol/L (136-145) 04/28/23 06:42 Potassium 4.5 mmol/L (3.5-5.1) 04/28/23 06:42 Chloride 102 mmol/L (98-107) 04/28/23 06:42 Carbon Dioxide 34 mmol/L (21-32) H 04/28/23 06:42 Anion Gap 3 (3-11) 04/28/23 06:42 BUN 37 mg/dl (6-23) H 04/28/23 06:42 Creatinine 0.97 mg/dl (0.6-1.2) D 04/28/23 06:42 Est Cr Clr Drug Dosing 32.7 ml/min 04/28/23 06:42 Est GFR ( Amer) 61.3 ml/min 04/28/23 06:42 Est GFR (Non-Af Amer) 52.9 ml/min 04/28/23 06:42 BUN/Creatinine Ratio 38.1 (10-20) H 04/28/23 06:42 Glucose 85 mg/dl (70-99(Fasting)) 04/28/23 06:42 Calcium 9.0 mg/dl (8.6-10.3) 04/28/23 06:42 Total Bilirubin 1.1 mg/dl (0.2-1.0) H 04/25/23 08:27 AST 18 U/L (13-39) 04/25/23 08:27 ALT 11 U/L (7-52) 04/25/23 08:27 Alkaline Phosphatase 78 U/L (34-104) 04/25/23 08:27 Troponin I High Sens 9.0 pg/ml (0-14) 04/25/23 08:27 B-Natriuretic Peptide 1013 pg/ml (0-100) H 04/25/23 08:27 Total Protein 6.8 gm/dl (6.0-8.3) 04/25/23 08:27 Albumin 3.2 gm/dl (3.4-5.0) L 04/25/23 08:27 Globulin 3.6 gm/dl (2.5-4.0) 04/25/23 08:27 Albumin/Globulin Ratio 0.9 (0.9-2) 04/25/23 08:27 Lipase 18 U/L (11-82) 04/25/23 08:27 Nasal Screen MRSA (PCR) Negative (Negative) 04/25/23 13:30 SARS-CoV-2 (PCR) NEGATIVE (Negative) 04/25/23 07:47 Impressions Chest X-Ray 04/25/23 07:21 XR chest 1V portable CLINICAL HISTORY: Chest pain, nonspecific TECHNIQUE: Single frontal radiograph of the chest was obtained. Comparison: Comparison is made to chest radiograph 10/02/2022 FINDINGS: An implanted pacemaker is seen. Cardiomegaly is noted. The aortic arch is talha cified. There is prominence and cephalization of the vasculature with Zully B lines seen. Small right and moderate left pleural effusions are seen. IMPRESSION: 1. Moderate left and small right pleural effusions, slightly increased from prior exam, with underlying atelectasis. 2. Cardiomegaly with possible pulmonary edema. ACT 112: Negative or not required by law. Electronically signed by: Clovis Ann M.D. 04/25/2023 8:38 AM Chest CTA 04/25/23 09:41 CT angio chest PE protocol CLINICAL HISTORY: PE TECHNIQUE: Multidetector row helical CT of the chest was performed with angiographic protocol. Coronal and sagittal reformations were obtained. Coronal and sagittal MIPS were obtained from the axial data set and were submitted for review. Automated dose lowering techniques and/or adjustment according to patient size were utilized for this exam. CT DOSE: 412.38 mGy.cm Comparison: Comparison is made to chest radiograph 04/25/2023 FINDINGS: Lungs and pleura: Moderate bilateral pleural effusions with underlying atelectasis. Smooth interlobular septal thickening is seen. Heart and pericardium: Cardiomegaly is seen with biatrial enlargement. No right heart strain is seen. Vessels: There is a small subsegmental pulmonary embolus in the right upper lobe. Pulmonary trunk measures 38 mm. Mediastinum and ioana: Unremarkable. Chest wall and lower neck: Unremarkable. Abdomen: Incidental note is made of reflux of contrast into the IVC. Bones: Degenerative changes in the thoracic spine. Multilevel compression deformities are seen most prominently at T9, T11, and T12. IMPRESSION: 1. Small subsegmental pulmonary embolus. 2. Pulmonary hypertension and biatrial enlargement is seen compatible with heart failure. 3. Moderate bilateral pleural effusions with underlying atelectasis. Likely mild pulmonary edema. ACT 112: Negative or not required by law. Electronically signed by: Clovis Ann M.D. 04/25/2023 10:28 AM Venous Doppler Study 04/25/23 11:16 US venous doppler LE BI CLINICAL HISTORY: Rule out DVT TECHNIQUE: Bilateral lower extremity real-time compression venous ultrasound with Color Doppler imaging. Utilizing real-time ultrasonic imaging multiple real time high-resolution ultrasonic images with compression and noncompression maneuvers of the deep venous system in addition to color doppler imaging were performed from the common femoral vein through the proximal calf veins. COMPARISON: None available at the time of this dictation. FINDINGS/IMPRESSION: Currently there is normal compressibility of the deep venous system from the common femoral vein through the proximal calf veins. No superficial venous thrombosis is identified. ACT 112: Negative or not required by law. Electronically signed by: Clovis Ann M.D. 04/25/2023 12:28 PM (3) Pulmonary embolism Acute cor pulmonale presence: unspecified Chronicity: unspecified Pulmonary embolism type: unspecified Qualified Code(s): I26.99 - Other pulmonary embolism without acute cor pulmonale
--- NOTE | 2023-04-28 13:58 | Cardiology Progress Note ---
Date of Service April 28, 2023 Assessment & Plan (1) Acute heart failure with preserved ejection fraction (HFpEF): (2) Pulmonary embolism: (3) Pleural effusion: (4) A-fib: (5) Acute on chronic renal insufficiency: Plan Patient found to have a subsegmental pulmonary embolism. As noted, she has h/o spontaneous intra-abdominal hemorrhage, as well as atraumatic intracerebral hemorrhage. Continue subcutaneous heparin as ordered. Renal function improved today. Titrate furosemide back to 40 mg IV twice daily. (Outpatient dose of furosemide 40 mg twice daily) follow daily weight, fluid balance, electrolytes, and GFR. Telemetry demonstrates rate controlled atrial fibrillation. Continue metoprolol and low-dose aspirin. Admission and Anticipated Discharge Date Admission Date: April 25, 2023 Subjective Patient seen examined the bedside. Fluid balance -1.5 L. Creatinine trending down from 1.37 to 0.97 today. Denies chest pain or shortness of breath at rest. Telemetry reveals rate controlled atrial fibrillation with heart rate predominantly 80s up to 100 bpm. Occasionally, heart rate trends up to the 110s. Denies palpitations, lightheadedness, or dizziness. Review of Systems Review of Systems: All systems reviewed & are unremarkable except as noted in Subjective Physical Exam Constitutional: + ill appearing and + cachectic; no acut e distress Respiratory: no respiratory distress, no labored breathing and no retractions Auscultation: + diminished lung sounds (Bases bilateral) Cardiovascular: Rate/Rhythm: + irregularly irregular Heart Sounds: normal S1 and normal S2; no murmur Extremities: no edema Gastrointestinal (Abdomen): Inspection/Auscultation: normal bowel sounds; abdomen not distended Percussion/Palpation: abdomen soft; abdomen nontender, no guarding and abdomen not rigid Neurologic: CN's II-XI intact bilaterally and moves all extremities; no focal motor deficits Results & Data Vital Signs (Past 12 Hours) Vital Signs Temp Pulse Pulse Resp BP Pulse Ox O2 Del Method 04/28/23 11:13 Nasal Cannula 04/28/23 10:44 36.3 C L 92 H 20 102/70 94 Room Air 04/28/23 10:25 94 04/28/23 07:00 107 H 04/28/23 03:57 36.1 C L 86 27 H 92/59 L 91 Nasal Cannula O2 Flow Rate 04/28/23 11:13 2 04/28/23 10:44 2 04/28/23 10:25 04/28/23 07:00 04/28/23 03:57 2 Laboratory Results CBC 04/28/23 Range/Units 06:42 WBC 6.40 (4.8-10.8) K/ul RBC 4.57 (4.20-5.40) M/uL Hgb 14.5 (12.0-16.0) g/dl Hct 43.8 (37.0-47.0) % Plt Count 263 (130-400) K/uL Neut # (Auto) 4.60 (1.40-6.50) K/uL Lymph # (Auto) 0.98 L (1.20-3.40) K/uL [place] # (Auto) 0.73 H (0.11-0.59) K/uL Eos # (Auto) 0.03 (0.00-0.50) K/uL Baso # (Auto) 0.04 (0.00-0.20) K/uL Comprehensive Metabolic Panel 04/28/23 Range/Units 06:42 Sodium 139 (136-145) mmol/L Potassium 4.5 (3.5-5.1) mmol/L Chloride 102 (98-107) mmol/L Carbon Dioxide 34 H (21-32) mmol/L BUN 37 H (6-23) mg/dl Creatinine 0.97 D (0.6-1.2) mg/dl Glucose 85 (70-99(Fasting)) mg/dl Calcium 9.0 (8.6-10.3) mg/dl Intake and Output 04/27/23 04/28/23 04/28/23 22:59 06:59 14:59 Intake Total 240 / 760 120 / 760 Output Total 200 / 900 Balance 240 / -140 -80 / -140 Intake: Oral 240 / 760 120 / 760 Output: Urine Amount (Catheter) 200 / 200 External 200 / 200 Other: # Unmeasured Voids 1 Weight 49.8 kg Weight Measurement Method Built in [facility] (2) Pulmonary embolism Acute cor pulmonale presence: unspecified Chronicity: unspecified Pulmonary embolism type: unspecified Qualified Code(s): I26.99 - Other pulmonary embolism without acute cor pulmonale (4) A-fib Atrial fibrillation type: unspecified Qualified Code(s): I48.91 - Unspecified atrial fibrillation
[2023-04-28] MEDS: GABAPENTIN 300 MG CAP PO SCH (20:05)
[2023-04-28] MEDS: FLUTICASONE PROPIONATE NA SPR 16 GM BTL SCH (20:07)
[2023-04-28] MEDS: MAGNESIUM HYDROXIDE SUSP 30 ML UDC PO PRN (20:10)
[2023-04-28] MEDS: DOCUSATE SODIUM/SENNA 50/8.6MG TAB PO PRN (20:10)
[2023-04-29] MEDS: LEVOTHYROXINE SODIUM 75 MCG TABLET PO SCH (05:49)
[2023-04-29] MEDS: HEPARIN SOD 5,000 UNIT/0.5 ML VIAL SQ SCH ×3 (05:50→21:22)
[2023-04-29 06:53] LABS: BUN Creatinine Ratio 32.5 (10-20); Calcium 9.3 mg/dl (8.6-10.3); Creatinine Clr Calc Pharmacy 27.6 ml/min; Est GFR (African American) 50.4 ml/min; Est GFR (Non-African American) 43.5 ml/min; Potassium 4.8 mmol/L (3.5-5.1)
[2023-04-29] MEDS: EMPAGLIFLOZIN 10 MG TAB PO SCH (08:49)
[2023-04-29] MEDS: CYANOCOBALAMIN (B-12) 500 MCG TABLET PO SCH (08:49)
[2023-04-29] MEDS: MAGNESIUM OXIDE 400 MG TAB PO SCH (08:49)
[2023-04-29] MEDS: FERROUS SULFATE 325 MG TAB PO SCH (08:49)
[2023-04-29] MEDS: CALCIUM 600MG + VIT D 400 IU TAB PO SCH ×2 (08:49→20:02)
[2023-04-29] MEDS: ACETAMINOPHEN 325 MG TAB PO SCH ×3 (08:50→20:03)
[2023-04-29] MEDS: ASPIRIN 81 MG ECTAB PO SCH (08:50)
[2023-04-29] MEDS: SPIRONOLACTONE 25 MG TAB PO SCH (11:04)
[2023-04-29] MEDS: METOPROLOL TARTRATE 25 MG TAB PO SCH ×2 (11:04→20:03)
[2023-04-29] MEDS: FUROSEMIDE 40 MG/4 ML VIAL IV SCH ×2 (11:05→16:25)
--- NOTE | 2023-04-29 12:29 | Hospitalist Progress Note ---
Date of Service April 29, 2023 Assessment & Plan (1) Acute heart failure with preserved ejection fraction (HFpEF): (2) Atrial fibrillation: (3) Pulmonary embolism: Plan: Patient sent [facility] the ED from [facility] with shortness of breath. Creatinine/BUN slightly elevated on admission BNP elevated 1000 D-dimer was found to be 4000 Chest x-ray on admission personally reviewed; moderate left and small right- sided pleural effusion. consistent with pul edema CTA chest personally reviewed; bilateral pleural effusion present with mild pulmonary edema. Also reported to have a small subsegmental PE in right upper lobe. Venous duplex does not show any DVT EKG personally reviewed; atrial fibrillation with ventricular rate of 91. QTc of 533 For acute on chronic CHF; continue on Lasix 40 mg twice daily. Repeat chest x-ray tomorrow a.m. Cardiology on board appreciate recommendation For atrial fibrillation; rate control with Toprol 12.5 mg twice daily. Discussed with patient's daughter over the phone on April 26, 2023 regarding finding concerning for subsegmental PE in right upper lobe. 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 She was on Coumadin prior to that. Patient's daughter agreed that if bilateral venous duplex is negative; no plans on systemic anticoagulation given the small subsegmental PE noted in the CTA chest. Discussion was done that there is future risks of strokes and further PE. For now, risk of the anticoagulation outweigh the benefit. Patient is placed on heparin subcu as DVT prophylaxis while inpatient. Other conditions; Peripheral neuropathycontinue on gabapentin Hypothyroidismcontinue levothyroxine DNR/DNI DVT prophylaxis heparin Time spent evaluating patient, direct bedside care, chart review, placing orders, interpretation of diagnostic studies, discussion with consultants, patient, and family members, as well as other required patient management activities is 50 minutes. Please note the above document was generated using voice recognition software. It may contain grammatical, syntax or spelling errors. Any formal questions or concerns about the content, text or information contained within the body of this dictation should be directly addressed to the provider for clarification Admission and Anticipated Discharge Date Admission Date: April 25, 2023 Subjective Patient seen and examined at bedside. She still complains of shortness of breath. She had 2 L of diuresis overnight. Review of Systems Review of Systems: All systems reviewed & are unremarkable except as noted in Subjective Physical Exam Physical Exam: Constitutional: Alert orient x 3. Not in any distress. Hard of hearing Respiratory: Decreased breath sound at bilateral bases. Occasional crackles heard Cardiovascular: Irregular, no murmur, no edema Vessels: no JVD or carotid bruit Chest: normal inspection of chest Abdomen: normal bowel sounds, soft, nontender, no hepatosplenomegaly Musculoskeletal: no cyanosis or clubbing, extremities motor strength 5/5 Skin: no rashes, warm and dry normal turgor Neurologic: PERRL, EOMI, accommodation nl, no face palsy, no dysarthria CN's II- XI intact bilaterally and moves all extremities Psychiatric: A+Ox3, euthymic affect Results & Data Results & Data Vital Signs (Past 12 Hours) Vital Signs Temp Pulse Resp BP BP Pulse Ox O2 Del Method 04/29/23 11:23 96 Nasal Cannula 04/29/23 11:15 36.6 C 93 H 18 100/64 92 Nasal Cannula 04/29/23 10:00 84 114/73 04/29/23 07:13 Nasal Cannula 04/29/23 06:57 36.2 C L 81 18 95/67 L 97 Nasal Cannula 04/29/23 06:00 98 H 04/29/23 02:00 36.2 C L 83 21 112/74 93 Nasal Cannula O2 Flow Rate 04/29/23 11:23 1 04/29/23 11:15 1 04/29/23 10:00 04/29/23 07:13 2 04/29/23 06:57 1 04/29/23 06:00 04/29/23 02:00 2 Laboratory Results Laboratory Results WBC 6.40 K/ul (4.8-10.8) 04/28/23 06:42 RBC 4.57 M/uL (4.20-5.40) 04/28/23 06:42 Hgb 14.5 g/dl (12.0-16.0) 04/28/23 06:42 Hct 43.8 % (37.0-47.0) 04/28/23 06:42 MCV 95.8 fL (80.0-100.0) 04/28/23 06:42 MCH 31.7 pg (25.0-34.0) 04/28/23 06:42 MCHC 33.1 g/dL (32.0-36.0) 04/28/23 06:42 RDW Std Deviation 67.2 fL (36.4-46.3) H 04/28/23 06:42 RDW Coeff of Del 19.4 % (11.5-14.5) H 04/28/23 06:42 Plt Count 263 K/uL (130-400) 04/28/23 06:42 MPV 9.7 fL (9.4-12.4) 04/28/23 06:42 Immature Gran % (Auto) 0.3 % 04/28/23 06:42 Neut % (Auto) 71.9 % 04/28/23 06:42 Lymph % (Auto) 15.3 % 04/28/23 06:42 [place] % (Auto) 11.4 % 04/28/23 06:42 Eos % (Auto) 0.5 % 04/28/23 06:42 Baso % (Auto) 0.6 % 04/28/23 06:42 Neut # (Auto) 4.60 K/uL (1.40-6.50) 04/28/23 06:42 Lymph # (Auto) 0.98 K/uL (1.20-3.40) L 04/28/23 06:42 [place] # (Auto) 0.73 K/uL (0.11-0.59) H 04/28/23 06:42 Eos # (Auto) 0.03 K/uL (0.00-0.50) 04/28/23 06:42 Baso # (Auto) 0.04 K/uL (0.00-0.20) 04/28/23 06:42 Immature Gran # (Auto) 0.02 K/uL (0.01-0.20) 04/28/23 06:42 PT 11.6 Seconds (9.0-12.0) 04/25/23 08:27 INR 1.1 (0.9-1.1) 04/25/23 08:27 APTT 29.6 Seconds (21.0-31.0) 04/25/23 08:27 PTT Ratio 1.0 04/25/23 08:27 D-Dimer 4250 ug/L FEU (0-500) H* 04/25/23 08:27 Sodium 139 mmol/L (136-145) 04/29/23 06:15 Potassium 4.8 mmol/L (3.5-5.1) 04/29/23 06:15 Chloride 99 mmol/L (98-107) 04/29/23 06:15 Carbon Dioxide 36 mmol/L (21-32) H 04/29/23 06:15 Anion Gap 4 (3-11) 04/29/23 06:15 BUN 37 mg/dl (6-23) H 04/29/23 06:15 Creatinine 1.14 mg/dl (0.6-1.2) 04/29/23 06:15 Est Cr Clr Drug Dosing 27.6 ml/min 04/29/23 06:15 Est GFR ( Amer) 50.4 ml/min 04/29/23 06:15 Est GFR (Non-Af Amer) 43.5 ml/min 04/29/23 06:15 BUN/Creatinine Ratio 32.5 (10-20) H 04/29/23 06:15 Glucose 85 mg/dl (70-99(Fasting)) 04/29/23 06:15 Calcium 9.3 mg/dl (8.6-10.3) 04/29/23 06:15 Total Bilirubin 1.1 mg/dl (0.2-1.0) H 04/25/23 08:27 AST 18 U/L (13-39) 04/25/23 08:27 ALT 11 U/L (7-52) 04/25/23 08:27 Alkaline Phosphatase 78 U/L (34-104) 04/25/23 08:27 Troponin I High Sens 9.0 pg/ml (0-14) 04/25/23 08:27 B-Natriuretic Peptide 1013 pg/ml (0-100) H 04/25/23 08:27 Total Protein 6.8 gm/dl (6.0-8.3) 04/25/23 08:27 Albumin 3.2 gm/dl (3.4-5.0) L 04/25/23 08:27 Globulin 3.6 gm/dl (2.5-4.0) 04/25/23 08:27 Albumin/Globulin Ratio 0.9 (0.9-2) 04/25/23 08:27 Lipase 18 U/L (11-82) 04/25/23 08:27 Nasal Screen MRSA (PCR) Negative (Negative) 04/25/23 13:30 SARS-CoV-2 (PCR) NEGATIVE (Negative) 04/25/23 07:47 Impressions Chest X-Ray 04/25/23 07:21 XR chest 1V portable CLINICAL HISTORY: Chest pain, nonspecific TECHNIQUE: Single frontal radiograph of the chest was obtained. Comparison: Comparison is made to chest radiograph 10/02/2022 FINDINGS: An implanted pacemaker is seen. Cardiomegaly is noted. The aortic arch is calcified. There is prominence and cephalization of the vasculature with Zully B lines seen. Small right and moderate left pleural effusions are seen. IMPRESSION: 1. Moderate left and small right pleural effusions, slightly increased from prior exam, with underlying atelectasis. 2. Cardiomegaly with possible pulmonary edema. ACT 112: Negative or not required by law. Electronically signed by: Clovis Ann M.D. 04/25/2023 8:38 AM Chest CTA 04/25/23 09:41 CT angio chest PE protocol CLINICAL HISTORY: PE TECHNIQUE: Multidetector row helical CT of the chest was performed with angiographic protocol. Coronal and sagittal reformations were obtained. Coronal and sagittal MIPS were obtained from the axial data set and were submitted for review. Automated dose lowering techniques and/or adjustment according to patient size were utilized for this exam. CT DOSE: 412.38 mGy.cm Comparison: Comparison is made to chest radiograph 04/25/2023 FINDINGS: Lungs and pleura: Moderate bilateral pleural effusions with underlying atelectasis. Smooth interlobular septal thickening is seen. Heart and pericardium: Cardiomegaly is seen with biatrial enlargement. No right heart strain is seen. Vessels: There is a small subsegmental pulmonary embolus in the right upper lobe. Pulmonary trunk measures 38 mm. Mediastinum and ioana: Unremarkable. Chest wall and lower neck: Unremarkable. Abdomen: Incidental note is made of reflux of contrast into the IVC. Bones: Degenerative changes in the thoracic spine. Multilevel compression deformities are seen most prominently at T9, T11, and T12. IMPRESSION: 1. Small subsegmental pulmonary embolus. 2. Pulmonary hypertension and biatrial enlargement is seen compatible with heart failure. 3. Moderate bilateral pleural effusions with underlying atelectasis. Likely m ild pulmonary edema. ACT 112: Negative or not required by law. Electronically signed by: Clovis Ann M.D. 04/25/2023 10:28 AM Venous Doppler Study 04/25/23 11:16 US venous doppler LE BI CLINICAL HISTORY: Rule out DVT TECHNIQUE: Bilateral lower extremity real-time compression venous ultrasound with Color Doppler imaging. Utilizing real-time ultrasonic imaging multiple real time high-resolution ultrasonic images with compression and noncompression maneuvers of the deep venous system in addition to color doppler imaging were performed from the common femoral vein through the proximal calf veins. COMPARISON: None available at the time of this dictation. FINDINGS/IMPRESSION: Currently there is normal compressibility of the deep venous system from the common femoral vein through the proximal calf veins. No superficial venous thrombosis is identified. ACT 112: Negative or not required by law. Electronically signed by: Clovis Ann M.D. 04/25/2023 12:28 PM (3) Pulmonary embolism Acute cor pulmonale presence: unspecified Chronicity: unspecified Pulmonary embolism type: unspecified Qualified Code(s): I26.99 - Other pulmonary embolism without acute cor pulmonale
--- NOTE | 2023-04-29 15:01 | Cardiology Progress Note ---
Date of Service April 29, 2023 Assessment & Plan (1) Acute heart failure with preserved ejection fraction (HFpEF): (2) Pulmonary embolism: (3) Pleural effusion: (4) A-fib: (5) Acute on chronic renal insufficiency: Plan Patient found to have a subsegmental pulmonary embolism. As noted, she has h/o spontaneous intra-abdominal hemorrhage, as well as atraumatic intracerebral hemorrhage. Continue subcutaneous heparin as ordered. Renal function improved today. Continue furosemide 40 mg IV twice daily. (Outpatient dose of furosemide 40 mg twice daily) follow daily weight, fluid balance, electrolytes, and GFR. Telemetry demonstrates rate controlled atrial fibrillation. Continue metoprolol and low-dose aspirin. Admission and Anticipated Discharge Date Admission Date: April 25, 2023 Subjective 87-year-old female seen and examined at the bedside. In poor spirits today. Voices frustration regarding her health status. Denies chest pain or palpitations. Telemetry reveals atrial fibrillation 80's up to 100 bpm. Review of Systems Review of Systems: All systems reviewed & are unremarkable except as noted in Subjective Physical Exam Constitutional: + ill appearing and + cachectic; no acut e distress Respiratory: no respiratory distress, no labored breathing and no retractions Auscultation: + diminished lung sounds (Bases bilateral) Cardiovascular: Rate/Rhythm: + irregularly irregular Heart Sounds: normal S1 and normal S2; no murmur Extremities: no edema Gastrointestinal (Abdomen): Inspection/Auscultation: normal bowel sounds; abdomen not distended Percussion/Palpation: abdomen soft; abdomen nontender, no guarding and abdomen not rigid Neurologic: CN's II-XI intact bilaterally and moves all extremities; no focal motor deficits Results & Data Vital Signs (Past 12 Hours) Vital Signs Temp Pulse Resp BP Pulse Ox O2 Del Method O2 Flow Rate 04/29/23 11:23 96 Nasal Cannula 1 04/29/23 11:15 36.6 C 93 H 18 100/64 92 Nasal Cannula 1 04/29/23 10:00 84 114/73 04/29/23 07:13 Nasal Cannula 2 04/29/23 06:57 36.2 C L 81 18 95/67 L 97 Nasal Cannula 1 04/29/23 06:00 98 H (2) Pulmonary embolism Acute cor pulmonale presence: unspecified Chronicity: unspecified Pulmonary embolism type: unspecified Qualified Code(s): I26.99 - Other pulmonary embolism without acute cor pulmonale (4) A-fib Atrial fibrillation type: unspecified Qualified Code(s): I48.91 - Unspecified atrial fibrillation
[2023-04-29] MEDS: FLUTICASONE PROPIONATE NA SPR 16 GM BTL SCH (20:03)
[2023-04-29] MEDS: GABAPENTIN 300 MG CAP PO SCH (20:03)
[2023-04-30] MEDS: HEPARIN SOD 5,000 UNIT/0.5 ML VIAL SQ SCH ×2 (05:28→13:35)
[2023-04-30] MEDS: LEVOTHYROXINE SODIUM 75 MCG TABLET PO SCH (05:30)
--- NOTE | 2023-04-30 08:15 | XRay Report ---
XR chest 1V portable CLINICAL HISTORY: Follow-up pulmonary edema. COMPARISON STUDY: Chest radiograph and chest CT April 25, 2023. FINDINGS: Left subclavian pacer is in place. Cardiomegaly is again noted. Pulmonary edema slightly pr ogressed. Large left and small right pleural effusions are similar to prior exam. There are associate d airspace opacities which favor atelectasis. No pneumothorax. IMPRESSION: 1. Interstitial pulmonary edema which has slightly progressed since prior chest radiograph. 2. No change in large left and small right pleural effusions. ACT 112: Negative or not required by law. Electronically signed by: Santiago Leon M.D. 04/30/2023 8:14 AM
[2023-04-30 08:17] LABS: BUN Creatinine Ratio 33.3 (10-20); Creatinine Clr Calc Pharmacy 26.8 ml/min; Est GFR (African American) 48.9 ml/min; Est GFR (Non-African American) 42.2 ml/min; Potassium 4.8 mmol/L (3.5-5.1)
[2023-04-30] MEDS: ACETAMINOPHEN 325 MG TAB PO SCH ×3 (09:30→21:00)
[2023-04-30] MEDS: ASPIRIN 81 MG ECTAB PO SCH (09:30)
[2023-04-30] MEDS: FUROSEMIDE 40 MG/4 ML VIAL IV SCH ×3 (09:31→18:03)
[2023-04-30] MEDS: CALCIUM 600MG + VIT D 400 IU TAB PO SCH ×2 (09:31→21:00)
[2023-04-30] MEDS: CYANOCOBALAMIN (B-12) 500 MCG TABLET PO SCH (09:31)
[2023-04-30] MEDS: SPIRONOLACTONE 25 MG TAB PO SCH (09:31)
[2023-04-30] MEDS: EMPAGLIFLOZIN 10 MG TAB PO SCH (09:31)
[2023-04-30] MEDS: MAGNESIUM OXIDE 400 MG TAB PO SCH (09:31)
[2023-04-30] MEDS: METOPROLOL TARTRATE 25 MG TAB PO SCH ×2 (09:31→21:00)
--- NOTE | 2023-04-30 12:06 | Cardiology Progress Note ---
Date of Service April 30, 2023 Assessment & Plan (1) Acute heart failure with preserved ejection fraction (HFpEF): (2) Pulmonary embolism: (3) Pleural effusion: (4) A-fib: (5) Acute on chronic renal insufficiency: Plan Patient admitted with multifactorial SOB. Diagnosed with subsegmental PE with pulm vascular congestion and b/l pulmonary effusions. Venous duplex negative for DVT. Given history of spontaneous intra-abdominal hemorrhage, as well as atraumatic intracerebral hemorrhage, full anticoagulation felt to be high risk. Continue subcutaneous heparin as ordered for DVT proph. Acute on chronic HFpEF -Good urine outputs over the last 24 hours. Unfortunately worsening pulm vascular congestion noted with ongoing respiratory symptoms. -Bilateral pleural effusions noted. May benefit from pulm evaluation and consider thoracentesis. - Agree with increasing furosemide 40 mg IV TID today -continue spironolactone -Renal function at baseline. -Monitor I+O's -Monitor electrolytes Telemetry demonstrates rate controlled atrial fibrillation. Continue metoprolol and low-dose aspirin. Case discussed with Dr. Bermudez I spent a total of 30 minutes on the date of service in preparation, delivery, and documentation of the care provided to this patient, excluding any time spent in the performance of separately billed services. Alia Vasquez PA-C Department of Cardiology, [facility] This chart was completed in part utilizing Speech Voice Recognition Software. Grammatical errors, random word insertions, pronoun errors, and incomplete sentences are an occasional consequence of this system due to software limitations, ambient noise, and hardware issues. Any formal questions or concerns about the content, text, or information contained within the body of this dictation should be directly addressed to the provider for clarification. Admission and Anticipated Discharge Date Admission Date: April 25, 2023 Supervising Physician Co-Signing Physician Notes Patient seen and examined at bedside. Denies chest pain or shortness of breath at rest. Repeat x-ray demonstrating pleural effusions with worsening pulmonary vascular congestion despite diuretic therapy. Telemetry reveals rate controlled atrial fibrillation. PE: GEN: NAD, chronically ill. Heart: Irregular rhythm, normal S1-S2. No murmur. Lungs: Diminished breath sounds bilaterally. No rhonchi or wheeze. Extremities: No edema. A/P: Agree with above PARuddyC history, physical exam, assessment and plan. Full effusions unchanged despite diuretic therapy. Serum bicarbonate trending upward suggesting mild contraction alkalosis. Renal function remains stable. Continue Lasix 40 mg twice daily. Consider pulmonary consultation. Contraindications to chronic anticoagulation. Continue low-dose aspirin and beta-carmine. Subjective Patient seen this morning resting in bed. Reports ongoing SOB at rest and with conversations, minimal activity. She denies chest pain. She did not sleep well due to her neuropathy. No edema. Good diuresis in the last 24 hours around 3.7 L. Repeat chest xray this morning with ongoing b/l pleural effusions and pulm vascular congestion. Review of Systems Review of Systems: All systems reviewed & are unremarkable except as noted in HPI & below Physical Exam Constitutional: + ill appearing and + cachectic; no acut e distress Respiratory: no respiratory distress, no labored breathing, no retractions and no cough Auscultation: + diminished lung sounds (Bases bilateral) and + crackles; no wheezes Cardiovascular: Rate/Rhythm: + irregularly irregular Heart Sounds: normal S1 and normal S2; no murmur Extremities: no edema Gastrointestinal (Abdomen): normal bowel sounds, soft, nontender, no hepatosplenomegaly Inspection/Auscultation: normal bowel sounds; abdomen not distended Percussion/Palpation: abdomen soft; abdomen nontender, no guarding and abdomen not rigid Neurologic: CN's II-XI intact bilaterally and moves all extremities; no focal motor deficits Results & Data Vital Signs (Past 12 Hours) Vital Signs Temp Pulse Resp BP Pulse Ox O2 Del Method O2 Flow Rate 04/30/23 11:33 36.3 C L 89 18 93/66 L 97 Nasal Cannula 1 04/30/23 06:53 37.2 C 95 H 16 104/55 L 91 Room Air 04/30/23 02:22 36.6 C 90 18 93/58 L 94 Nasal Cannula 1 04/30/23 01:36 98 Nasal Cannula 1 04/30/23 00:46 97 Room Air Laboratory Results Comprehensive Metabolic Panel 04/30/23 Range/Units 07:03 Sodium 139 (136-145) mmol/L Potassium 4.8 (3.5-5.1) mmol/L Chloride 97 L (98-107) mmol/L Carbon Dioxide 37 H (21-32) mmol/L BUN 39 H (6-23) mg/dl Creatinine 1.17 (0.6-1.2) mg/dl Glucose 83 (70-99(Fasting)) mg/dl Calcium 9.0 (8.6-10.3) mg/dl Intake and Output 04/29/23 04/30/23 04/30/23 22:59 06:59 14:59 Intake Total 450 / 1250 100 / 1250 Output Total 1400 / 1651 251 / 1651 Balance -950 / -401 -151 / -401 Intake: Oral 450 / 1250 100 / 1250 Output: Urine 900 / 900 Urine Amount (Catheter) 500 / 750 250 / 750 External 500 / 750 250 / 750 # Bowel Movements Other: # Unmeasured Voids 1 Weight 49.2 kg Diagnostic Findings telemetry reviewed: Afib with controlled rates in the 80-'s Chest xray reviewed from today 04/30/23: IMPRESSION: 1. Interstitial pulmonary edema which has slightly progressed since prior chest radiograph. 2. No change in large left and small right pleural effusions. Medications Administered Current Inpatient Medications Acetaminophen (Acetaminophen 325 Mg Tab) 650 mg PO TID [facility] Stop: 05/25/23 13:59 Last Admin: 04/30/23 09:30 Dose: 650 mg Acetaminophen (Acetaminophen 325 Mg Tab) 650 mg PO Q4H PRN PRN Reason: Pain or Fever Stop: 05/25/23 12:48 Al Hydrox/Mg Hydrox/Simethicone (Aluminum/Magnesium Susp 30 Ml Udc) 15 ml PO Q4H PRN PRN Reason: Dyspepsia Stop: 05/25/23 12:48 Aspirin (Aspirin 81 Mg Ectab) 81 mg PO QAM [facility] Stop: 05/25/23 12:48 Last Admin: 04/30/23 09:30 Dose: 81 mg Calcium/Vitamin D (Calcium 600mg + Vit D 400 Iu Tab) 1 tab PO Q12 DONNA Stop: 05/25/23 12:48 Last Admin: 04/30/23 09:31 Dose: 1 tab Cyanocobalamin (Cyanocobalamin (B-12) 500 Mcg Tablet) 2,000 mcg PO QAM [facility] Stop: 05/25/23 12:48 Last Admin: 04/30/23 09:31 Dose: 2,000 mcg Empagliflozin (Empagliflozin 10 Mg Tab) 10 mg PO DAILY [facility] Stop: 05/25/23 12:48 Last Admin: 04/30/23 09:31 Dose: 10 mg Ferrous Sulfate (Ferrous Sulfate 325 Mg Tab) 325 mg PO Q2D@0900 [facility] Stop: 05/25/23 12:48 Last Admin: 04/29/23 08:49 Dose: 325 mg Fluticasone Propionate (Fluticasone Propionate Na Spr 16 Gm Btl) 2 sprays NA HS [facility] Stop: 05/25/23 20:59 Last Admin: 04/29/23 20:03 Dose: 2 sprays Furosemide (Furosemide 40 Mg/4 Ml Vial) 40 mg IV TID@0800,1200,1700 [facility] Stop: 05/30/23 08:59 Last Admin: 04/30/23 09:31 Dose: 40 mg Gabapentin (Gabapentin 300 Mg Cap) 300 mg PO HS [facility] Stop: 05/25/23 20:59 Last Admin: 04/29/23 20:03 Dose: 300 mg Heparin Sodium (Porcine) (Heparin Sod 5,000 Unit/0.5 Ml Vial) 5,000 units SQ Q8 [facility] Stop: 05/25/23 13:59 Last Admin: 04/30/23 05:28 Dose: 5,000 units Levothyroxine Sodium (Levothyroxine Sodium 75 Mcg Tablet) 75 mcg PO DAILYBB [facility] Stop: 05/25/23 12:48 Last Admin: 04/30/23 05:30 Dose: 75 mcg Magnesium Hydroxide (Magnesium Hydroxide Susp 30 Ml Udc) 30 ml PO Q12H PRN PRN Reason: Constipation Stop: 05/25/23 12:48 Last Admin: 04/28/23 20:10 Dose: 30 ml Magnesium Oxide (Magnesium Oxide 400 Mg Tab) 400 mg PO QAM [facility] Stop: 05/25/23 12:48 Last Admin: 04/30/23 09:31 Dose: 400 mg Metoprolol Tartrate (Metoprolol Tartrate 25 Mg Tab) 12.5 mg PO BID [facility] Stop: 05/25/23 12:48 Last Admin: 04/30/23 09:31 Dose: 12.5 mg Nitroglycerin (Nitroglycerin Sl 0.4 Mg/Tab Tab) 0.4 mg SL Q5M PRN PRN Reason: Chest Pain Stop: 05/25/23 12:48 Polyethylene Glycol (Polyethylene (Miralax) 17 Gm Pack) 17 gm PO DAILY PRN PRN Reason: Constipation Stop: 05/25/23 12:48 Last Admin: 04/27/23 21:04 Dose: 17 gm Senna/Docusate Sodium (Docusate Sodium/Senna 50/8.6mg Tab) 1 tab PO BID PRN PRN Reason: Constipation Stop: 05/25/23 12:48 Last Admin: 04/28/23 20:10 Dose: 1 tab Spironolactone (Spironolactone 25 Mg Tab) 25 mg PO QAM DONNA Stop: 05/25/23 12:48 Last Admin: 04/30/23 09:31 Dose: 25 mg (2) Pulmonary embolism Acute cor pulmonale presence: unspecified Chronicity: unspecified Pulmonary embolism type: unspecified Qualified Code(s): I26.99 - Other pulmonary embolism without acute cor pulmonale (4) A-fib Atrial fibrillation type: unspecified Qualified Code(s): I48.91 - Unspecified atrial fibrillation
--- NOTE | 2023-04-30 13:35 | Hospitalist Progress Note ---
Date of Service April 30, 2023 Assessment & Plan (1) Acute heart failure with preserved ejection fraction (HFpEF): (2) Atrial fibrillation: (3) Pulmonary embolism: Plan: [facility] of [facility]. Creatinine/BUN slightly elevated on admission BNP elevated 1000 D-dimer was found to be 4000 Chest x-ray on admission personally reviewed; moderate left and small right- sided pleural effusion. consistent with pul edema CTA chest personally reviewed; bilateral pleural effusion present with mild pulmonary edema. Also reported to have a small subsegmental PE in right upper lobe. Venous duplex does not show any DVT EKG personally reviewed; atrial fibrillation with ventricular rate of 91. QTc of 533 Repeat chest x-ray today personally reviewed; increasing pulmonary edema. Also noted to have left-sided pleural effusion Increased diuretics to Lasix 40 mg IV three times daily. Strict input and output. Daily weights Cardiology on board appreciate recommendation Will monitor oxygen status; supplemental oxygen if SPO2 is less than 92%. Might need pulmonology evaluation if pleural effusion does not decrease with IV diuretics. Will monitor response with aggressive diuretics for now. Continue on Jardiance and spironolactone Atrial fibrillation; rate control with Toprol 12.5 mg twice daily. No anticoagulation given history of spontaneous intra-abdominal bleeding and trauma tic ICH bleeding in the past. On heparin subcu Discussed with patient's daughter over the phone on April 26, 2023 regarding finding concerning for subsegmental PE in right upper lobe. 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 She was on Coumadin prior to that. Patient's daughter agreed that if bilateral venous duplex is negative; no plans on systemic anticoagulation given the small subsegmental PE noted in the CTA chest. Discussion was done that there is future risks of strokes and further PE. For now, risk of the anticoagulation outweigh the benefit. Patient is placed on heparin subcu as DVT prophylaxis while inpatient. Cardiology also agrees with the plan. Other conditions; Peripheral neuropathycontinue on gabapentin Hypothyroidismcontinue levothyroxine DNR/DNI DVT prophylaxis heparin Time spent evaluating patient, direct bedside care, chart review, placing orders, interpretation of diagnostic studies, discussion with consultants, patient, and family members, as well as other required patient management activities is 50 minutes. Please note the above document was generated using voice recognition software. It may contain grammatical, syntax or spelling errors. Any formal questions or concerns about the content, text or information contained within the body of this dictation should be directly addressed to the provider for clarification Admission and Anticipated Discharge Date Admission Date: April 25, 2023 Subjective Patient seen and examined at bedside. She reports increasing shortness of breath. Chest x-ray reveals increasing pulmonary edema. Review of Systems Review of Systems: All systems reviewed & are unremarkable except as noted in Subjective Physical Exam Physical Exam: Constitutional: Alert orient x 3. Not in any distress. Hard of hearing Respiratory: Decreased breath sound at bilateral bases. Bilateral crackles heard. Cardiovascular: Irregular, no murmur, no edema Vessels: no JVD or carotid bruit Chest: normal inspection of chest Abdomen: normal bowel sounds, soft, nontender, no hepatosplenomegaly Musculoskeletal: no cyanosis or clubbing, extremities motor strength 5/5 Skin: no rashes, warm and dry normal turgor Neurologic: PERRL, EOMI, accommodation nl, no face palsy, no dysarthria CN's II- XI intact bilaterally and moves all extremities Psychiatric: A+Ox3, euthymic affect Results & Data Results & Data Vital Signs (Past 12 Hours) Vital Signs Temp Pulse Resp BP Pulse Ox O2 Del Method O2 Flow Rate 04/30/23 11:33 36.3 C L 89 18 93/66 L 97 Nasal Cannula 1 04/30/23 06:53 37.2 C 95 H 16 104/55 L 91 Room Air 04/30/23 02:22 36.6 C 90 18 93/58 L 94 Nasal Cannula 1 04/30/23 01:36 98 Nasal Cannula 1 Laboratory Results Laboratory Results WBC 6.40 K/ul (4.8-10.8) 04/28/23 06:42 RBC 4.57 M/uL (4.20-5.40) 04/28/23 06:42 Hgb 14.5 g/dl (12.0-16.0) 04/28/23 06:42 Hct 43.8 % (37.0-47.0) 04/28/23 06:42 MCV 95.8 fL (80.0-100.0) 04/28/23 06:42 MCH 31.7 pg (25.0-34.0) 04/28/23 06:42 MCHC 33.1 g/dL (32.0-36.0) 04/28/23 06:42 RDW Std Deviation 67.2 fL (36.4-46.3) H 04/28/23 06:42 RDW Coeff of Del 19.4 % (11.5-14.5) H 04/28/23 06:42 Plt Count 263 K/uL (130-400) 04/28/23 06:42 MPV 9.7 fL (9.4-12.4) 04/28/23 06:42 Immature Gran % (Auto) 0.3 % 04/28/23 06:42 Neut % (Auto) 71.9 % 04/28/23 06:42 Lymph % (Auto) 15.3 % 04/28/23 06:42 Milam % (Auto) 11.4 % 04/28/23 06:42 Eos % (Auto) 0.5 % 04/28/23 06:42 Baso % (Auto) 0.6 % 04/28/23 06:42 Neut # (Auto) 4.60 K/uL (1.40-6.50) 04/28/23 06:42 Lymph # (Auto) 0.98 K/uL (1.20-3.40) L 04/28/23 06:42 Milam # (Auto) 0.73 K/uL (0.11-0.59) H 04/28/23 06:42 Eos # (Auto) 0.03 K/uL (0.00-0.50) 04/28/23 06:42 Baso # (Auto) 0.04 K/uL (0.00-0.20) 04/28/23 06:42 Immature Gran # (Auto) 0.02 K/uL (0.01-0.20) 04/28/23 06:42 PT 11.6 Seconds (9.0-12.0) 04/25/23 08:27 INR 1.1 (0.9-1.1) 04/25/23 08:27 APTT 29.6 Seconds (21.0-31.0) 04/25/23 08:27 PTT Ratio 1.0 04/25/23 08:27 D-Dimer 4250 ug/L FEU (0-500) H* 04/25/23 08:27 Sodium 139 mmol/L (136-145) 04/30/23 07:03 Potassium 4.8 mmol/L (3.5-5.1) 04/30/23 07:03 Chloride 97 mmol/L (98-107) L 04/30/23 07:03 Carbon Dioxide 37 mmol/L (21-32) H 04/30/23 07:03 Anion Gap 5 (3-11) 04/30/23 07:03 BUN 39 mg/dl (6-23) H 04/30/23 07:03 Creatinine 1.17 mg/dl (0.6-1.2) 04/30/23 07:03 Est Cr Clr Drug Dosing 26.8 ml/min 04/30/23 07:03 Est GFR ( Amer) 48.9 ml/min 04/30/23 07:03 Est GFR (Non-Af Amer) 42.2 ml/min 04/30/23 07:03 BUN/Creatinine Ratio 33.3 (10-20) H 04/30/23 07:03 Glucose 83 mg/dl (70-99(Fasting)) 04/30/23 07:03 Calcium 9.0 mg/dl (8.6-10.3) 04/30/23 07:03 Total Bilirubin 1.1 mg/dl (0.2-1.0) H 04/25/23 08:27 AST 18 U/L (13-39) 04/25/23 08:27 ALT 11 U/L (7-52) 04/25/23 08:27 Alkaline Phosphatase 78 U/L (34-104) 04/25/23 08:27 Troponin I High Sens 9.0 pg/ml (0-14) 04/25/23 08:27 B-Natriuretic Peptide 1013 pg/ml (0-100) H 04/25/23 08:27 Total Protein 6.8 gm/dl (6.0-8.3) 04/25/23 08:27 Albumin 3.2 gm/dl (3.4-5.0) L 04/25/23 08:27 Globulin 3.6 gm/dl (2.5-4.0) 04/25/23 08:27 Albumin/Globulin Ratio 0.9 (0.9-2) 04/25/23 08:27 Lipase 18 U/L (11-82) 04/25/23 08:27 Nasal Screen MRSA (PCR) Negative (Negative) 04/25/23 13:30 SARS-CoV-2 (PCR) NEGATIVE (Negative) 04/25/23 07:47 Impressions Chest CTA 04/25/23 09:41 CT angio chest PE protocol CLINICAL HISTORY: PE TECHNIQUE: Multidetector row helical CT of the chest was performed with angiographic protocol. Coronal and sagittal reformations were obtained. Coronal and sagittal MIPS were obtained from the axial data set and were submitted for review. Automated dose lowering techniques and/or adjustment according to patient size were utilized for this exam. CT DOSE: 412.38 mGy.cm Comparison: Comparison is made to chest radiograph 04/25/2023 FINDINGS: Lungs and pleura: Moderate bilateral pleural effusions with underlying atelectasis. Smooth interlobular septal thickening is seen. Heart and pericardium: Cardiomegaly is seen with biatrial enlargement. No right heart strain is seen. Vessels: There is a small subsegmental pulmonary embolus in the right upper lob e. Pulmonary trunk measures 38 mm. Mediastinum and ioana: Unremarkable. Chest wall and lower neck: Unremarkable. Abdomen: Incidental note is made of reflux of contrast into the IVC. Bones: Degenerative changes in the thoracic spine. Multilevel compression deformities are seen most prominently at T9, T11, and T12. IMPRESSION: 1. Small subsegmental pulmonary embolus. 2. Pulmonary hypertension and biatrial enlargement is seen compatible with heart failure. 3. Moderate bilateral pleural effusions with underlying atelectasis. Likely mild pulmonary edema. ACT 112: Negative or not required by law. Electronically signed by: Clovis Ann M.D. 04/25/2023 10:28 AM Venous Doppler Study 04/25/23 11:16 US venous doppler LE BI CLINICAL HISTORY: Rule out DVT TECHNIQUE: Bilateral lower extremity real-time compression venous ultrasound with Color Doppler imaging. Utilizing real-time ultrasonic imaging multiple real time high-resolution ultrasonic images with compression and noncompression maneuvers of the deep venous system in addition to color doppler imaging were performed from the common femoral vein through the proximal calf veins. COMPARISON: None available at the time of this dictation. FINDINGS/IMPRESSION: Currently there is normal compressibility of the deep venous system from the common femoral vein through the proximal calf veins. No superficial venous thrombosis is identified. ACT 112: Negative or not required by law. Electronically signed by: Clovis Ann M.D. 04/25/2023 12:28 PM Chest X-Ray 04/30/23 08:00 XR chest 1V portable CLINICAL HISTORY: Follow-up pulmonary edema. COMPARISON STUDY: Chest radiograph and chest CT April 25, 2023. FINDINGS: Left subclavian pacer is in place. Cardiomegaly is again noted. Pulmonary edema slightly progressed. Large left and small right pleural effusions are similar to prior exam. There are associated airspace opacities which favor atelectasis. No pneumothorax. IMPRESSION: 1. Interstitial pulmonary edema which has slightly progressed since prior chest radiograph. 2. No change in large left and small right pleural effusions. ACT 112: Negative or not required by law. Electronically signed by: Santiago Leon M.D. 04/30/2023 8:14 AM (3) Pulmonary embolism Acute cor pulmonale presence: unspecified Chronicity: unspecified Pulmonary embolism type: unspecified Qualified Code(s): I26.99 - Other pulmonary embolism without acute cor pulmonale
--- NOTE | 2023-04-30 15:59 | Pulmonary Consultation ---
Date of Consultation April 30, 2023 Assessment & Plan (1) Pulmonary embolism: Acute cor pulmonale presence: unspecified Chronicity: unspecified Pulmonary embolism type: unspecified Qualified Code(s): I26.99 - Other pulmonary embolism without acute cor pulmonale (2) CHF (congestive heart failure): Heart failure chronicity: acute on chronic Heart failure type: u nspecified Qualified Code(s): I50.9 - Heart failure, unspecified (3) Pleural effusion: (4) Acute heart failure with preserved ejection fraction (HFpEF): (5) Decompensated heart failure: (6) Atrial fibrillation: Plan CTA chest 04/25/2023 personally reviewed: Bilateral pleural effusion left greater than right Small subsegmental pulmonary emboli bilaterally Cardiomegaly Kyphosis Minimal but insignificant mediastinal lymphadenopathy 2D echo 10/03/2022: EF 55-60%, RV normal in size and function, moderate MR, PASP 36 mmHg -- Bilateral pleural effusion Left> right Etiology is likely cardiac from HFpEF Patient is making good amount of urine Continue with diuretics --Shortness of breath Multifactorial From pulmonary edema, bilateral pleural effusions as well as small segmental PE Continue with diuretics O2 supplementation to keep O2 saturation greater than 90% BiPAP nightly and as needed shortness --Acute subsegmental PE Appreciated on CTA 04/25/2023 Not on therapeutic anticoagulation because of history of intracerebral bleed Plan: In/out: -3.7 L since coming to the hospital I spoke with patient's daughter Erika [phone] who is the POA. I gave the patient's daughter option of continuing diuretics as her mother is urinating well while on it or considering thoracentesis which will be on the left side. Risk of the procedure as well as benefits was explained in depth. She would like to think about it and let us know what decision she would make. Given the patient is not in any emergent need of thoracentesis I think that is reasonable. Case was discussed with RN at bedside Please note the above document was generated using voice recognition software. It may contain grammatical, syntax or spelling errors.Any formal questions or concerns about the content, text or information contained within the body of this dictation should be directly addressed to the provider for clarification. History of Present Illness Attending Physician: Frank Nolasco MD History of Present Illness 87-year-old female presented to hospital with complaints of shortness of breath which has been going on since a week or so. Past medical history of A. fib with tachybradycardia syndrome, s/p dual-chamber pacemaker,, hypertension and diastolic heart failure Pulmonary consulted for pleural effusion I have seen the patient in the past back in January 2021 Please make note patient is a poor historian. History was obtained from previous chart At the time of examination patient was saturating 97-98% on 1 L nasal cannula. I went down to half a liter. She was not in any respite distress. She was breathing in the mid to high teens She says she is feeling better right now compared to when she came to the hospital. She was asking if it is still snowing outside. Denies any chest pain, no headache, no dizziness, no nausea vomiting Denies any cough. Has been urinating well Denies any fever or chills Social history: Non-smoker, no illicit drug use, no alcohol use. Allergies Allergy/AdvReac Type Severity Reaction Status Date / Time latex Allergy Unknown Unknown Verified 04/25/23 09:27 mirtazapine Allergy Unknown Rash Verified 04/25/23 09:27 lisinopril AdvReac Unknown Cough Verified 04/25/23 09:27 Home Medications Medication Instructions Recorded Confirmed Type magnesium oxide 400 mg (241.3 mg 400 mg PO QAM 05/11/19 04/25/23 History magnesium) tablet (MagOx) calcium carbonate 500 mg-vitamin 1 tab PO Q12H 02/05/20 04/25/23 History D3 10 mcg (400 unit) tablet (Calcium 500 + D) polyethylene glycol 3350 17 17 g PO DAILY PRN Constipation 02/05/20 04/25/23 History gram/dose oral powder lidocaine HCl 4 % topical cream 1 applic topical HS PRN Pain 05/18/20 04/25/23 History (Aspercreme (lidocaine HCl)) aspirin 81 mg tablet,delayed 81 mg PO QAM 07/21/20 04/25/23 History release cyanocobalamin (vitamin B-12) 2,000 mcg PO QAM 07/21/20 04/25/23 History 1,000 mcg tablet (Vitamin B-12) ferrous sulfate 325 mg (65 mg 325 mg PO Q OTHER DAY 01/03/21 04/25/23 History iron) tablet oxymetazoline 0.05 % nasal spray 2 spray intranasal UD PRN nose 01/03/21 04/25/23 History (Afrin (oxymetazoline)) bleeds fluticasone propionate 50 2 spray intranasal HS 10/02/22 04/25/23 History mcg/actuation nasal spray,suspension gabapentin 300 mg capsule 300 mg PO HS 10/02/22 04/25/23 History levothyroxine 75 mcg tablet 75 mcg PO QAM 10/02/22 04/25/23 History lidocaine 5 % topical patch 1 patch topical DAILY PRN Pain 10/02/22 04/25/23 History sennosides 8.6 mg-docusate sodium 1 tab-cap PO BID PRN Constipation 10/02/22 04/25/23 History 50 mg tablet (Senokot-S) furosemide 40 mg tablet 40 mg PO BID #60 tabs 10/05/22 04/25/23 Rx acetaminophen 650 mg 650 mg PO TID pain 04/25/23 04/25/23 History tablet,extended release empagliflozin 10 mg tablet 10 mg PO DAILY 04/25/23 04/25/23 History (Jardiance) metoprolol tartrate 25 mg tablet 12.5 mg PO BID 04/25/23 04/25/23 History spironolactone 25 mg tablet 25 mg PO QAM 04/25/23 04/25/23 History Patient History Medical History Atrial fibrillation Diastolic heart failure with preserved ejection fraction Acute heart failure with preserved ejection fraction (HFpEF) Decompensated heart failure UTI (urinary tract infection) Metabolic encephalopathy COVID-19 Fracture of neck of scapula TIA (transient ischemic attack) Possible in December 08, 2019 TIA 05/2019 per records. Last seen by neuro= 01/08/20- follow up PRN. Continue ASA. Constipation Anxiety Osteoarthritis Hyperlipidemia Persistent atrial fibrillation Stroke Chronic hyponatremia Sick sinus syndrome S/p pacemaker Hypomagnesemia Atrial fibrillation No AC secondary to history of bleeding issues (traumatic brain hemorrhage/intra- abdominal hemorrhage) Hypothyroidism HTN (hypertension) Surgical History History of pacemaker H/O colonoscopy Family History Other Cancer Social History Smoking Status: Never smoker Second Hand Exposure: No; Hx Alcohol Use: No Hx Substance Use: No Preferred Language: Georgian Communication Ability: Effective Communication Ability Comment: prior to today Banquet Pilot Required: No Beliefs That Will Affect Care: None marital status: Current Living Situation: Personal Care Facility Current Living Situation Comment: [facility] with who has dementia current occupational status: retired Feels Safe at Home: Yes Safety Concerns: Feels Safe At This Time Assistive Devices: Walker and Wheelchair Review of Systems 2 Review of Systems: All systems reviewed & are unremarkable except as noted in HPI & below and Unobtainable due to cognitive status Physical Exam 2 Physical Exam: Constitutional: No acute distress HEENT: EOMI, PERRLA, positive JVD Respiratory system: Decreased air entry bilaterally, more decreased on the left side, no wheeze, no rhonchi, positive crackles bilateral lower lobes CVS: S1-S2 positive, positive 3 out of 6 systolic murmur appreciated best at aorta Abdomen: Soft, nontender, nondistended, positive bowel sounds x4 Extremities: +2 pulses bilaterally radialis/ dorsalis pedis, no cyanosis, no edema Neuro: Awake alert oriented to self and place Psych: Normal mood and affect G/U: No Choudhary Skin: no rashes, warm and dry Lymphatic: no cervical or axillary lymphadenopathy Results & Data Results & Data Vital Signs (Past 12 Hours) Vital Signs Temp Pulse Pulse Resp BP Pulse Ox O2 Del Method 04/30/23 11:33 36.3 C L 89 18 93/66 L 97 Nasal Cannula 04/30/23 08:00 89 04/30/23 06:53 37.2 C 95 H 16 104/55 L 91 Room Air O2 Flow Rate 04/30/23 11:33 1 04/30/23 08:00 04/30/23 06:53 Laboratory Results 04/28/23 06:42 04/30/23 07:03 PG Care Time/CCT Total # of Minutes Spent Total Time Spent with Patient: Total time spent is greater than 50% in coordination of care (as documented) at patient's floor/unit and/or counseling patient: [place] [address] INT INP/OBS CARE 3/75MIN Patient Type New Diagnoses Pulmonary embolism I26.99 Acute cor pulmonale presence: unspecified Chronicity: unspecified Pulmonary embolism type: unspecified CHF (congestive heart failure) I50.9 Heart failure chronicity: acute on chronic Heart failure type: unspecified Pleural effusion J90 Acute heart failure with preserved ejection fraction (HFpEF) I50.31 Decompensated heart failure I50.9 Atrial fibrillation I48.91
[2023-04-30] MEDS: FLUTICASONE PROPIONATE NA SPR 16 GM BTL SCH (21:00)
[2023-04-30] MEDS: GABAPENTIN 300 MG CAP PO SCH (21:00)
[2023-05-01] MEDS: LEVOTHYROXINE SODIUM 75 MCG TABLET PO SCH (05:56)
[2023-05-01 07:07] LABS: Calcium 8.8 mg/dl (8.6-10.3); Potassium 5.2 mmol/L (3.5-5.1)
[2023-05-01 07:13] LABS: BUN Creatinine Ratio 35.9 (10-20); Creatinine Clr Calc Pharmacy 26.8 ml/min; Est GFR (African American) 48.9 ml/min; Est GFR (Non-African American) 42.2 ml/min
--- NOTE | 2023-05-01 07:18 | Hospitalist Progress Note ---
Date of Service May 01, 2023 Assessment & Plan (1) Acute heart failure with preserved ejection fraction (HFpEF): (2) Pulmonary embolism: Plan: Hypoxia related to acute HFpEF and acute subsegmental PE with initial pulmonary edema and bilateral pleural effusions. CXR-moderate left and small right-sided pleural effusion and pulmonary edema CTA chest revealed a small subsegmental PE in right upper lobe. Venous duplex does not show any DVT Continues on intravenous lasix Continues on metoprolol tartrate, Jardiance and spironolactone per home regimen. (3) Atrial fibrillation: Plan: Rate controlled w Toprol 12.5 mg twice daily. No anticoagulation given history of spontaneous intra-abdominal bleeding and traumatic ICH bleeding in the past. Prior provider discussed with patient's daughter over the phone on April 26, 2023 regarding finding concerning for subsegmental PE in right upper lobe. 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 She was on Coumadin prior to that. Patient's daughter agreed that if bilateral venous duplex is negative; no plans on systemic anticoagulation given the small subsegmental PE noted in the CTA chest. Discussion was done that there is future risks of strokes and further PE. For now, risk of the anticoagulation outweigh the benefit. Patient is placed on heparin subcu as DVT prophylaxis while inpatient. Cardiology also agreed with that plan per notes. (4) Hypothyroidism: Plan: chronic, stable, cont levothyroxine per home regimen. (5) History of pacemaker: (6) Hypertension: Plan: chronic, at goal. Cont current therapy. (7) Chronic kidney disease, stage 3a: Plan: chronic, stable. Creat at baseline. (8) Weakness: Plan: worsened by prolonged hospital stay. Encouraged her to mobilize OOB with assistance. SNF recommended. DVT proph-heparin currently held. Cont SCDs/ambulation as tolerated. DNR/DNI Dispo-cont telemetry. Will plan to discharge her to rehab once cardiology feels she is optimized from a heart failure standpoint. As patient is declining thor acentesis, will likely need a follow-up CXR in 2-4 weeks post discharge. I spent a total of60 minutes coordinating, documenting, and providing care for this patient excluding time spent in the performance of separately billed services. Judith White DO [facility] Hospitalist Admission and Anticipated Discharge Date Admission Date: April 25, 2023 Subjective 87 yo F admitted with acute heart failure. She reports feeling her breathing and lower leg swelling improved since admission. She has a left pleural effusion present with CXR showing improvement from admission However, patient is adamant against thoracentesis procedure. She denies other pain She reports she is not ready to move around yet. She states she lives at [place] with her who has dementia, but she doesn't have dementia herself. Outpatient record was reviewed for clarity of her medical issues. Physical Exam Physical Exam: CONSTITUTIONAL: elderly, frail, vitals as above, generally well-appearing, NAD EYES: normal conjunctivae, no scleral icterus, ENT: external ear and nose normal, MMM NECK: trachea midline, RESPIRATORY: clear to auscultation bilaterally, diminished breath sounds throughout with exam limited by patient position in bed and overall weakness, frailty, no crackles, rales or wheezes, normal respiratory effort CARDIOVASCULAR: regular rate and rhythm, S1 and 2 heard without murmurs, gallops or rubs, no JVD CHEST: +pacemaker to left anterior chest wall GASTROINTESTINAL: normal bowel sounds, soft, nontender, slightly protuberant but not distended MUSCULOSKELETAL: moves all extremities symmetrically, generalized weakness, cannot sit up independently. SKIN: warm and dry, NEUROLOGIC: CN 2-12 grossly intact, no sensory deficit, normal cognition, nor mal speech, no tremor PSYCHIATRIC: alert cooperative and oriented to person, place and time. Euthymic mood, makes good eye contact, language grossly intact, recent and remote memory grossly intact. Results & Data Results & Data Vital Signs (Past 12 Hours) Vital Signs Temp Pulse Resp BP BP Pulse Ox O2 Del Method 05/01/23 06:00 94 Nasal Cannula 05/01/23 02:32 36.3 C L 87 24 96/65 L 93 Nasal Cannula 04/30/23 23:26 36.6 C 85 18 108/70 98 Nasal Cannula 04/30/23 22:00 95 Nasal Cannula 04/30/23 21:15 Nasal Cannula O2 Flow Rate 05/01/23 06:00 1 05/01/23 02:32 1 04/30/23 23:26 04/30/23 22:00 1 04/30/23 21:15 1 Laboratory Results [facility] 04/30/23 05/01/23 07:03 05:57 Sodium 139 135 L Potassium 4.8 5.2 H Chloride 97 L 96 L Carbon Dioxide 37 H 35 H BUN 39 H 42 H Creatinine 1.17 1.17 Glucose 83 84 Calcium 9.0 8.8 Medications Administered Current Inpatient Medications Acetaminophen (Acetaminophen 325 Mg Tab) 650 mg PO TID [facility] Stop: 05/25/23 13:59 Last Admin: 04/30/23 21:00 Dose: 650 mg Acetaminophen (Acetaminophen 325 Mg Tab) 650 mg PO Q4H PRN PRN Reason: Pain or Fever Stop: 05/25/23 12:48 Al Hydrox/Mg Hydrox/Simethicone (Aluminum/Magnesium Susp 30 Ml Udc) 15 ml PO Q4H PRN PRN Reason: Dyspepsia Stop: 05/25/23 12:48 Aspirin (Aspirin 81 Mg Ectab) 81 mg PO QAM [facility] Stop: 05/25/23 12:48 Last Admin: 04/30/23 09:30 Dose: 81 mg Calcium/Vitamin D (Calcium 600mg + Vit D 400 Iu Tab) 1 tab PO Q12 [facility] Stop: 05/25/23 12:48 Last Admin: 04/30/23 21:00 Dose: 1 tab Cyanocobalamin (Cyanocobalamin (B-12) 500 Mcg Tablet) 2,000 mcg PO QAM [facility] Stop: 05/25/23 12:48 Last Admin: 04/30/23 09:31 Dose: 2,000 mcg Empagliflozin (Empagliflozin 10 Mg Tab) 10 mg PO DAILY [facility] Stop: 05/25/23 12:48 Last Admin: 04/30/23 09:31 Dose: 10 mg Ferrous Sulfate (Ferrous Sulfate 325 Mg Tab) 325 mg PO Q2D@0900 [facility] Stop: 05/25/23 12:48 Last Admin: 04/29/23 08:49 Dose: 325 mg Fluticasone Propionate (Fluticasone Propionate Na Spr 16 Gm Btl) 2 sprays NA [facility] Stop: 05/25/23 20:59 Last Admin: 04/30/23 21:00 Dose: 2 sprays Furosemide (Furosemide 40 Mg/4 Ml Vial) 40 mg IV TID@0800,1200,1700 [facility] Stop: 05/30/23 08:59 Last Admin: 04/30/23 18:03 Dose: 40 mg Gabapentin (Gabapentin 300 Mg Cap) 300 mg PO [facility] Stop: 05/25/23 20:59 Last Admin: 04/30/23 21:00 Dose: 300 mg Heparin Sodium (Porcine) (Heparin Sod 5,000 Unit/0.5 Ml Vial) 5,000 units SQ Q8 [facility] Stop: 05/25/23 13:59 Last Admin: 04/30/23 13:35 Dose: 5,000 units Levothyroxine Sodium (Levothyroxine Sodium 75 Mcg Tablet) 75 mcg PO DAILYBB [facility] Stop: 05/25/23 12:48 Last Admin: 05/01/23 05:56 Dose: 75 mcg Magnesium Hydroxide (Magnesium Hydroxide Susp 30 Ml Udc) 30 ml PO Q12H PRN PRN Reason: Constipation Stop: 05/25/23 12:48 Last Admin: 04/28/23 20:10 Dose: 30 ml Magnesium Oxide (Magnesium Oxide 400 Mg Tab) 400 mg PO QAM [facility] Stop: 05/25/23 12:48 Last Admin: 04/30/23 09:31 Dose: 400 mg Metoprolol Tartrate (Metoprolol Tartrate 25 Mg Tab) 12.5 mg PO BID [facility] Stop: 05/25/23 12:48 Last Admin: 04/30/23 21:00 Dose: 12.5 mg Nitroglycerin (Nitroglycerin Sl 0.4 Mg/Tab Tab) 0.4 mg SL Q5M PRN PRN Reason: Chest Pain Stop: 05/25/23 12:48 Polyethylene Glycol (Polyethylene (Miralax) 17 Gm Pack) 17 gm PO DAILY PRN PRN Reason: Constipation Stop: 05/25/23 12:48 Last Admin: 04/27/23 21:04 Dose: 17 gm Senna/Docusate Sodium (Docusate Sodium/Senna 50/8.6mg Tab) 1 tab PO BID PRN PRN Reason: Constipation Stop: 05/25/23 12:48 Last Admin: 04/28/23 20:10 Dose: 1 tab Spironolactone (Spironolactone 25 Mg Tab) 25 mg PO QAM [facility] Stop: 05/25/23 12:48 Last Admin: 04/30/23 09:31 Dose: 25 mg (2) Pulmonary embolism Acute cor pulmonale presence: unspecified Chronicity: unspecified Pulmonary embolism type: unspecified Qualified Code(s): I26.99 - Other pulmonary embolism without acute cor pulmonale (3) Atrial fibrillation Atrial fibrillation type: persistent (not longstanding) Qualified Code(s): I48.19 - Other persistent atrial fibrillation (6) Hypertension Hypertension type: unspecified Qualified Code(s): I10 - Essential (primary) hypertension
[2023-05-01] MEDS: ACETAMINOPHEN 325 MG TAB PO SCH ×3 (08:40→19:59)
[2023-05-01] MEDS: MAGNESIUM OXIDE 400 MG TAB PO SCH (08:42)
[2023-05-01] MEDS: EMPAGLIFLOZIN 10 MG TAB PO SCH (08:42)
[2023-05-01] MEDS: CYANOCOBALAMIN (B-12) 500 MCG TABLET PO SCH (08:43)
[2023-05-01] MEDS: ASPIRIN 81 MG ECTAB PO SCH (08:43)
[2023-05-01] MEDS: CALCIUM 600MG + VIT D 400 IU TAB PO SCH ×2 (08:44→19:59)
[2023-05-01] MEDS: FERROUS SULFATE 325 MG TAB PO SCH (08:44)
[2023-05-01] MEDS: METOPROLOL TARTRATE 25 MG TAB PO SCH ×2 (08:46→21:00)
[2023-05-01] MEDS: FUROSEMIDE 40 MG/4 ML VIAL IV SCH ×3 (08:49→18:46)
[2023-05-01] MEDS ORDERED: SPIRONOLACTONE 12.5 MG TAB PO SCH (09:00)
--- NOTE | 2023-05-01 12:24 | Cardiology Progress Note ---
Date of Service May 01, 2023 Assessment & Plan (1) Acute heart failure with preserved ejection fraction (HFpEF): (2) Pulmonary embolism: (3) Pleural effusion: (4) A-fib: (5) Acute on chronic renal insufficiency: Plan Patient admitted with multifactorial SOB. Diagnosed with subsegmental PE with pulm vascular congestion and b/l pulmonary effusions. Venous duplex negative for DVT. Given history of spontaneous intra-abdominal hemorrhage, as well as atraumatic intracerebral hemorrhage, full anticoagulation felt to be high risk. Continue subcutaneous heparin as ordered for DVT proph. Acute on chronic HFpEF -Good urine outputs over the last 24 hours, however, clinically patient not improving significantly. -Bilateral pleural effusions noted. May benefit from thoracentesis. This was again discussed with patient. She wishes to continue diuretics and avoid p rocedures at this time. -Continue furosemide 40 mg IV TID today -Potassium elevated - spironolactone reduced to 12.5 mg -Renal function at baseline. -Monitor I+O's -Monitor electrolytes. Bicarb at 35 (was 37 yesterday). Monitor. Telemetry demonstrates rate controlled atrial fibrillation. Continue metoprolol and low-dose aspirin. Case discussed with Dr. Bermudez I spent a total of 30 minutes on the date of service in preparation, delivery, and documentation of the care provided to this patient, excluding any time spent in the performance of separately billed services. Alia Vasquez PA-C Department of Cardiology, [facility] This chart was completed in part utilizing Speech Voice Recognition Software. Grammatical errors, random word insertions, pronoun errors, and incomplete sentences are an occasional consequence of this system due to software limitations, ambient noise, and hardware issues. Any formal questions or concerns about the content, text, or information contained within the body of this dictation should be directly addressed to the provider for clarification. Admission and Anticipated Discharge Date Admission Date: April 25, 2023 Supervising Physician Co-Signing Physician Notes Patient seen and examined at bedside. Denies chest pain or shortness of breath at rest. No changes overnight. Tolerating diuretic therapy. Denies chest pain or palpitations. Rate controlled atrial fibrillation on telemetry. PE: GEN: NAD, chronically ill. Heart: Irregular rhythm, normal S1-S2. No murmur. Lungs: Diminished breath sounds bilaterally. No rhonchi or wheeze. Extremities: No edema. A/P: Agree with above PA-C history, physical exam, assessment and plan. Overall clinical status unchanged. Fair diuresis with IV Lasix. Patient considering thoracentesis. Appreciate pulmonary input. Continue Lasix 40 mg twice daily. Contraindications to chronic anticoagulation. Continue low-dose aspirin and beta-carmine. Subjective Patient resting in bed. SOB persists. Pulm consulted to consider thoracentesis. Patient wishes to continue diuresis and avoid procedure unless no improvement. Continues to diurese without significant clinical improvement. No edema. Review of Systems Review of Systems: All systems reviewed & are unremarkable except as noted in HPI & below Physical Exam Constitutional: + ill appearing and + cachectic; no acut e distress Respiratory: no respiratory distress, no labored breathing, no retractions and no cough Auscultation: + diminished lung sounds (Bases bilateral) and + crackles; no wheezes Cardiovascular: Rate/Rhythm: + irregularly irregular Heart Sounds: normal S1 and normal S2; no murmur Extremities: no edema Gastrointestinal (Abdomen): normal bowel sounds, soft, nontender, no hepatosplenomegaly Inspection/Auscultation: normal bowel sounds; abdomen not distended Percussion/Palpation: abdomen soft; abdomen nontender, no guarding and abdomen not rigid Neurologic: CN's II-XI intact bilaterally and moves all extremities; no focal motor deficits Results & Data Vital Signs (Past 12 Hours) Vital Signs Temp Pulse Resp BP Pulse Ox O2 Del Method O2 Flow Rate 05/01/23 08:59 36.5 C 85 23 134/88 98 Nasal Cannula 1 05/01/23 08:00 Room Air 05/01/23 06:00 94 Nasal Cannula 1 05/01/23 02:32 36.3 C L 87 24 96/65 L 93 Nasal Cannula 1 Laboratory Results Comprehensive Metabolic Panel 05/01/23 Range/Units 05:57 Sodium 135 L (136-145) mmol/L Potassium 5.2 H (3.5-5.1) mmol/L Chloride 96 L (98-107) mmol/L Carbon Dioxide 35 H (21-32) mmol/L BUN 42 H (6-23) mg/dl Creatinine 1.17 (0.6-1.2) mg/dl Glucose 84 (70-99(Fasting)) mg/dl Calcium 8.8 (8.6-10.3) mg/dl Intake and Output 11/28/23 11/29/23 11/29/23 22:59 06:59 14:59 Intake Total 200 / 820 Output Total 400 / 652 251 / 652 Balance -400 / 168 -51 / 168 Intake: Oral 200 / 820 Output: Urine Amount (Catheter) 400 / 650 250 / 650 External 400 / 650 250 / 650 # Bowel Movements 1 / 2 Other: Weight 49.1 kg Diagnostic Findings Telemetry reviewed: Afib with intermittent pacing; Heart rates 70-90 bpm Chest xray yesterday: MPRESSION: 1. Interstitial pulmonary edema which has slightly progressed since prior chest radiograph. 2. No change in large left and small right pleural effusions. Medications Administered Current Inpatient Medications Acetaminophen (Acetaminophen 325 Mg Tab) 650 mg PO TID [facility] Stop: 05/25/23 13:59 Last Admin: 05/01/23 08:40 Dose: 650 mg Acetaminophen (Acetaminophen 325 Mg Tab) 650 mg PO Q4H PRN PRN Reason: Pain or Fever Stop: 05/25/23 12:48 Al Hydrox/Mg Hydrox/Simethicone (Aluminum/Magnesium Susp 30 Ml Udc) 15 ml PO Q4H PRN PRN Reason: Dyspepsia Stop: 05/25/23 12:48 Aspirin (Aspirin 81 Mg Ectab) [facility] Stop: 05/25/23 12:48 Last Admin: 05/01/23 08:43 Dose: 81 mg Calcium/Vitamin D (Calcium 600mg + Vit D 400 Iu Tab) 1 tab PO Q12 [facility] Stop: 05/25/23 12:48 Last Admin: 05/01/23 08:44 Dose: 1 tab Cyanocobalamin (Cyanocobalamin (B-12) 500 Mcg Tablet) 2,000 mcg PO QAM [facility] Stop: 05/25/23 12:48 Last Admin: 05/01/23 08:43 Dose: 2,000 mcg Empagliflozin (Empagliflozin 10 Mg Tab) 10 mg PO DAILY [facility] Stop: 05/25/23 12:48 Last Admin: 05/01/23 08:42 Dose: 10 mg Ferrous Sulfate (Ferrous Sulfate 325 Mg Tab) 325 mg PO Q2D@0900 [facility] Stop: 05/25/23 12:48 Last Admin: 05/01/23 08:44 Dose: 325 mg Fluticasone Propionate (Fluticasone Propionate Na Spr 16 Gm Btl) 2 sprays NA HS [facility] Stop: 05/25/23 20:59 Last Admin: 04/30/23 21:00 Dose: 2 sprays Furosemide (Furosemide 40 Mg/4 Ml Vial) 40 mg IV TID@0800,1200,1700 [facility] Stop: 05/30/23 08:59 Last Admin: 05/01/23 08:49 Dose: 40 mg Gabapentin (Gabapentin 300 Mg Cap) 300 mg PO HS [facility] Stop: 05/25/23 20:59 Last Admin: 04/30/23 21:00 Dose: 300 mg Heparin Sodium (Porcine) (Heparin Sod 5,000 Unit/0.5 Ml Vial) 5,000 units SQ Q8 [facility] Stop: 05/25/23 13:59 Last Admin: 04/30/23 13:35 Dose: 5,000 units Levothyroxine Sodium (Levothyroxine Sodium 75 Mcg Tablet) 75 mcg PO DAILYBB [facility] Stop: 05/25/23 12:48 Last Admin: 05/01/23 05:56 Dose: 75 mcg Magnesium Hydroxide (Magnesium Hydroxide Susp 30 Ml Udc) 30 ml PO Q12H PRN PRN Reason: Constipation Stop: 05/25/23 12:48 Last Admin: 04/28/23 20:10 Dose: 30 ml Magnesium Oxide (Magnesium Oxide 400 Mg Tab) 400 mg PO QAM [facility] Stop: 05/25/23 12:48 Last Admin: 05/01/23 08:42 Dose: 400 mg Metoprolol Tartrate (Metoprolol Tartrate 25 Mg Tab) 12.5 mg PO BID [facility] Stop: 05/25/23 12:48 Last Admin: 05/01/23 08:46 Dose: 12.5 mg Nitroglycerin (Nitroglycerin Sl 0.4 Mg/Tab Tab) 0.4 mg SL Q5M PRN PRN Reason: Chest Pain Stop: 05/25/23 12:48 Polyethylene Glycol (Polyethylene (Miralax) 17 Gm Pack) 17 gm PO DAILY PRN PRN Reason: Constipation Stop: 05/25/23 12:48 Last Admin: 04/27/23 21:04 Dose: 17 gm Senna/Docusate Sodium (Docusate Sodium/Senna 50/8.6mg Tab) 1 tab PO BID PRN PRN Reason: Constipation Stop: 05/25/23 12:48 Last Admin: 04/28/23 20:10 Dose: 1 tab Spironolactone (Spironolactone 12.5 Mg Tab) 12.5 mg PO [facility] Stop: 05/31/23 08:59 Last Admin: 05/01/23 09:42 Dose: 12.5 mg (2) Pulmonary embolism Acute cor pulmonale presence: unspecified Chronicity: unspecified Pulmonary embolism type: unspecified Qualified Code(s): I26.99 - Other pulmonary embolism without acute cor pulmonale (4) A-fib Atrial fibrillation type: unspecified Qualified Code(s): I48.91 - Unspecified atrial fibrillation
--- NOTE | 2023-05-01 15:19 | Pulmonology Progress Note ---
Date of Service May 01, 2023 Assessment & Plan (1) Pulmonary embolism: Acute cor pulmonale presence: unspecified Chronicity: unspecified Pulmonary embolism type: unspecified Qualified Code(s): I26.99 - Other pulmonary embolism without acute cor pulmonale (2) CHF (congestive heart failure): Heart failure chronicity: acute on chronic Heart failure type: u nspecified Qualified Code(s): I50.9 - Heart failure, unspecified (3) Pleural effusion: (4) Acute heart failure with preserved ejection fraction (HFpEF): (5) Decompensated heart failure: (6) Atrial fibrillation: Atrial fibrillation type: persistent (not longstanding) Qualified Code(s): I48.19 - Other persistent atrial fibrillation Plan CTA chest 04/25/2023 personally reviewed: Bilateral pleural effusion left greater than right Small subsegmental pulmonary emboli bilaterally Cardiomegaly Kyphosis Minimal but insignificant mediastinal lymphadenopathy 2D echo 10/03/2022: EF 55-60%, RV normal in size and function, moderate MR, PASP 36 mmHg -- Bilateral pleural effusion Left> right Etiology is likely cardiac from HFpEF Patient is making good amount of urine Continue with diuretics --Shortness of breath Multifactorial From pulmonary edema, bilateral pleural effusions as well as small segmental PE Continue with diuretics O2 supplementation to keep O2 saturation greater than 90% BiPAP nightly and as needed shortness --Acute subsegmental PE Appreciated on CTA 04/25/2023 Not on therapeutic anticoagulation because of history of intracerebral bleed Plan: In/out: -3.7 L since coming to the hospital Patient personally does not want thoracentesis done. Patient's daughter will talk to mother and confirm her wishes. For the time being would recommend to continue with diuresis. Patient's daughter Erika [phone] Okay to resume subcu heparin if patient does not have plan for thoracentesis Case was discussed with RN as well as hospitalist Please note the above document was generated using voice recognition software. It may contain grammatical, syntax or spelling errors.Any formal questions or concerns about the content, text or information contained within the body of this dictation should be directly addressed to the provider for clarification. Admission and Anticipated Discharge Date Admission Date: April 25, 2023 Subjective Patient seen and examined at bedside. No acute distress, no adverse event overnight She was saturating 95-96% on room air Denies any headache, no nausea, no vomiting Has been urinating well. She wanted to see if they can remove the pure wick and use bedpan instead Appetite is fair. Review of Systems 2 Review of Systems: All systems reviewed & are unremarkable except as noted in Subjective Physical Exam 2 Physical Exam: Constitutional: No acute distress HEENT: EOMI, PERRLA, positive JVD Respiratory system: Decreased air entry bilaterally, more decreased on the left side, no wheeze, no rhonchi, positive crackles bilateral lower lobes CVS: S1-S2 positive, positive 3 out of 6 systolic murmur appreciated best at aorta Abdomen: Soft, nontender, nondistended, positive bowel sounds x4 Extremities: +2 pulses bilaterally radialis/ dorsalis pedis, no cyanosis, no edema Neuro: Awake alert oriented to self and place Psych: Normal mood and affect G/U: No Choudhary Skin: no rashes, warm and dry Lymphatic: no cervical or axillary lymphadenopathy Results & Data Results & Data Vital Signs (Past 12 Hours) Vital Signs Temp Pulse Resp BP Pulse Ox O2 Del Method O2 Flow Rate 05/01/23 12:11 36.4 C L 85 118/67 97 Nasal Cannula 1 05/01/23 08:59 36.5 C 85 23 134/88 98 Nasal Cannula 1 05/01/23 08:00 Room Air 05/01/23 06:00 94 Nasal Cannula 1 Laboratory Results 04/28/23 06:42 05/01/23 05:57 PG Care Time/CCT Total # of Minutes Spent Total Time Spent with Patient: Total time spent is greater than 50% in coordination of care (as documented) at patient's floor/unit and/or counseling patient: Coding Level of Care Code 21043 SUB INP/OBS CARE 3/50MIN Diagnoses Pulmonary embolism I26.99 Acute cor pulmonale presence: unspecified Chronicity: unspecified Pulmonary embolism type: unspecified CHF (congestive heart failure) I50.9 Heart failure chronicity: acute on chronic Heart failure type: unspecified Pleural effusion J90 Acute heart failure with preserved ejection fraction (HFpEF) I50.31 Decompensated heart failure I50.9 Persistent atrial fibrillation I48.19 Atrial fibrillation type: persistent (not longstanding)
[2023-05-01] MEDS: GABAPENTIN 300 MG CAP PO SCH (19:59)
[2023-05-01] MEDS: FLUTICASONE PROPIONATE NA SPR 16 GM BTL SCH (20:00)
[2023-05-01] MEDS ORDERED: DIGOXIN 250 MCG in SYRINGE 9 ML IV STA (20:21)
[2023-05-01] MEDS ORDERED: ALBUMIN 25% 12.5 GM/50 ML VIAL IV ONE ×2 (20:30→22:06)
[2023-05-01 21:16] LABS: BUN Creatinine Ratio 38.3 (10-20); Calcium 8.5 mg/dl (8.6-10.3); Creatinine Clr Calc Pharmacy 26.1 ml/min; Est GFR (African American) 47.4 ml/min; Est GFR (Non-African American) 40.9 ml/min; Magnesium 2.4 mg/dl (1.7-2.4); Potassium 4.8 mmol/L (3.5-5.1)
--- NOTE | 2023-05-01 22:07 | Communication Note ---
Date of Service: May 01, 2023 Patient SBP noted to be 90s as per RN, heart rate 90-110s. Usual drowsiness as per RN. Patient with back pain and incontinence as per RN. Serum sodium 132 from 135 in a.m. Serum Crea 1.2 from 1.17 in AM UA WBC plus AP Hypotension, hyponatremia Rapid A-fib Complicated UTI Rule out obstructive uropathy given back pain complaints IV albumin 1 dose Digoxin Hold diuretic for now and recheck kidney function in a.m. Urine CS, Cefepime in light of microbiologic history (hx enteric organisms and Pseudomonas UTI as per records) CT abdomen pelvis Re: Back pain, UTI Will relay to AM provider.
[2023-05-01 23:53] LABS: Base Excess ABG 13.6 mEq/L (-9-1.8); HCO3 ABG 38 mmol/L (19-24); PCO2 ABG 47 mmHg (35-46); PO2 ABG 62 mmHg (80-95)
[2023-05-02 00:07] LABS: Allen Test Pos (Pos)
[2023-05-02 00:08] LABS: pH ABG 7.52 (7.35-7.45)
[2023-05-02 00:33] LABS: Appearance Urine Turbid (Clear); Bacteria Urine Automated Negative (Negative); Bilirubin Urine Negative (Negative); Blood Urine Negative (Negative); Color Urine Yellow; Epithelial Cell Urine Auto >30 /lpf (0-5); Glucose Urine UA 2+ (Negative); Ketones Urine Negative (Negative); Leukocyte Esterase Urine 1+ (Negative); Nitrite Urine Negative (Negative); Protein Urine Negative (Negative); Specific Gravity Urine 1.017 (1.000-1.030); Urobilinogen Urine Negative (Negative); pH Urine 7.5 (4.5-7.5)
[2023-05-02 00:54] LABS: Cast Urine Automated 0 /lpf (0-5)
[2023-05-02 00:58] LABS: Calcium Oxalate Crystals Urine Present (None Prsent); RBC Urine Automated 0-4 /hpf (0-4)
[2023-05-02] MEDS ORDERED: CEFEPIME 2,000 MG in SYRINGE 0 ML IV ONE (01:45)
--- NOTE | 2023-05-02 02:43 | CT Scan Report ---
Exam(s): CT HEAD Without Contrast EXAM: CT Head Without Intravenous Contrast CLINICAL HISTORY: Reason for exam: ams. TECHNIQUE: Axial computed tomography images of the head/brain without intravenous contrast. CTDI is 38.24 mGy and DLP is 702.46 mGy-cm. Automated exposure control was utilized for the study. A dose lowering technique was utilized adhering to the principles of ALARA. COMPARISON: Comparison made to prior head CT from January 03, 2021. FINDINGS: Brain: Remote ischemic injury of the right capsule. No hemorrhage. Mild nonspecific white matter changes. No edema. Ventricles: Advanced ventriculomegaly. Bones/joints: Hyperostosis frontalis interna. No acute fracture. Soft tissues: Bilateral lens replacements. Mild soft tissue swelling over the left forehead. Sinuses: Unremarkable as visualized. No acute sinusitis. Mastoid air cells: Unremarkable as visualized. No mastoid effusion. IMPRESSION: No evidence of acute intracranial pathology. Electronically signed by: Janelle Duarte MD 05/02/23 02:43 AM
--- NOTE | 2023-05-02 03:20 | CT Scan Report ---
Exam(s): CT ABDOMEN + PELVIS Without Contrast EXAM: CT Abdomen and Pelvis Without Intravenous Contrast CLINICAL HISTORY: Reason for exam: back pain, uti. TECHNIQUE: Axial computed tomography images of the abdomen and pelvis without intravenous contrast. CTDI is 17.01 mGy and DLP is 795.78 mGy-cm. Automated exposure control was utilized for the study. A dose lowering technique was utilized adhering to the principles of ALARA. COMPARISON: February 05, 2020 FINDINGS: Lung bases: See below. Pleural space: Moderate bilateral pleural effusions, greater on the left than the right measuring at least 7 cm. There is bibasilar atelectasis. Heart: Moderate cardiomegaly. There is a pacing device in place. ABDOMEN: Liver: Unremarkable. Gallbladder and bile ducts: There is a 1.6 cm gallstone in the gallbladder without surrounding inflammation. No ductal dilation. Pancreas: Unremarkable. No ductal dilation. Spleen: Unremarkable. No splenomegaly. Adrenals: Unremarkable. No mass. Kidneys and ureters: Unremarkable. No obstructing stones. No hydronephrosis. Stomach and bowel: Fecal impaction of the rectum which is dilated to 10 cm consistent with constipation. There is diverticulosis of the sigmoid colon without evidence of acute diverticulitis. No pneumoperitoneum is seen. PELVIS: Appendix: No findings to suggest acute appendicitis. Bladder: Unremarkable. No stones. Reproductive: Unremarkable as visualized. ABDOMEN and PELVIS: Intraperitoneal space: See above. Bones/joints: Moderate to severe multilevel degenerative changes throughout the spine including compression fractures at T9, T11, L1, L4, and L5 which appear chronic. No dislocation. Soft tissues: Unremarkable. Vasculature: The abdominal aorta is mildly calcified and tortuous but nondilated. Lymph nodes: Unremarkable. No enlarged lymph nodes. IMPRESSION: 1. Fecal impaction of the rectum which is dilated to 10 cm consistent with constipation. There is diverticulosis of the sigmoid colon without evidence of acute diverticulitis. No pneumoperitoneum is seen. 2. Moderate bilateral pleural effusions, greater on the left than the right measuring at least 7 cm. There is bibasilar atelectasis. Electronically signed by: Ramírez Guadalupe MD 05/02/23 03:19 AM
[2023-05-02] MEDS: MAGNESIUM HYDROXIDE SUSP 30 ML UDC PO PRN ×2 (05:29→20:48)
[2023-05-02] MEDS: POLYETHYLENE (MIRALAX) 17 GM PACK PO PRN (05:29)
[2023-05-02] MEDS: LEVOTHYROXINE SODIUM 75 MCG TABLET PO SCH (05:29)
[2023-05-02] MEDS ORDERED: bisacodyL 10 MG SUPP PR STA (06:32)
--- NOTE | 2023-05-02 08:06 | Hospitalist Progress Note ---
Date of Service May 02, 2023 Assessment & Plan (1) Acute heart failure with preserved ejection fraction (HFpEF): (2) Pulmonary embolism: Plan: Hypoxia related to acute HFpEF and acute subsegmental PE with initial pulmonary edema and bilateral pleural effusions. CXR-moderate left and small right-sided pleural effusion and pulmonary edema CTA chest revealed a small subsegmental PE in right upper lobe. Venous duplex does not show any DVT IV Lasix held 2/2 elevated creatinine, hypotension and metabolic alkalosis. Continues on metoprolol tartrate as tolerated, Jardiance and spironolactone per home regimen. Received digoxin last night given hypotension. Appreciate cardiology assistance with rate control efforts in afib. (3) Atrial fibrillation: Plan: Rapid ventricular response overnight requiring dig x 1 dose. Restarted on Metoprolol this am with BP now at 105/75. Rate controlled w Toprol 12.5 mg twice daily. No anticoagulation given history of spontaneous intra-abdominal bleeding and traumatic ICH bleeding in the past. Prior provider discussed with patient's daughter over the phone on April 26, 2023 regarding finding concerning for subsegmental PE in right upper lobe. 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 She was on Coumadin prior to that. Patient's daughter agreed that if bilateral venous duplex is negative; no plans on systemic anticoagulation given the small subsegmental PE noted in the CTA chest. Discussion was done that there is future risks of strokes and further PE. For now, risk of the anticoagulation outweigh the benefit. SCDs for DVT prophylaxis given level of frailty and risk of bleeding. (4) Metabolic alkalosis: Plan: Likely related to diuretics recently administered. Holding this now. Cont to encourage PO intake and rehydration. Repeat BMP in am. (5) History of pacemaker: (6) Hypothyroidism: Plan: chronic, stable, cont levothyroxine per home regimen. (7) Hypertension: Plan: chronic, at goal. Cont current therapy. (8) Chronic kidney disease, stage 3a: Plan: chronic, stable. Creat at baseline. (9) Weakness: Plan: worsened by prolonged hospital stay. Encouraged her to mobilize OOB with assistance. SNF recommended. DVT proph-heparin currently held. Cont SCDs/ambulation as tolerated. DNR/DNI Dispo-cont telemetry. Will plan to discharge her to rehab once cardiology feels she is optimized from a heart failure standpoint. As patient is declining thoracentesis, will likely need a follow-up CXR in 2-4 weeks post discharge. Palliative care has also been consulted. I spent a total of60 minutes coordinating, documenting, and providing care for this patient excluding time spent in the performance of separately billed services. Judith White DO [facility] Hospitalist (10) UTI (urinary tract infection): Plan: No evidence of UTI on UA. Denies any symptoms, however, she is a poor historian. She received cefepime one dose overnight. Will hold off on additional abx given she doesn't appear clinically ill. Admission and Anticipated Discharge Date Admission Date: April 25, 2023 Subjective 87 yo F admitted with acute heart failure. She didn't have any sleep last night per her report. More consistent need for oxygen supplementation overnight Declining thoracentesis again to me this morning. Metabolic alkalosis, elevated creatinine and hypotension preventing further diuretic at this time Spoke with patient about the need to better define goals of care with a palliative consult and she is in agreement. feels her abdomen is less bloated today after BM overnight Physical Exam Physical Exam: CONSTITUTIONAL: elderly, frail, vitals as above, generally well-appearing, NAD EYES: normal conjunctivae, no scleral icterus, ENT: external ear and nose normal, MMM NECK: trachea midline, RESPIRATORY: clear to auscultation bilaterally, diminished breath sounds th roughout with exam limited by patient position in bed and overall weakness, frailty, no crackles, rales or wheezes, normal respiratory effort CARDIOVASCULAR: regular rate and rhythm, S1 and 2 heard without murmurs, gallops or rubs, no JVD CHEST: +pacemaker to left anterior chest wall GASTROINTESTINAL: normal bowel sounds, soft, nontender, slightly protuberant but not distended MUSCULOSKELETAL: moves all extremities symmetrically, generalized weakness, cannot sit up independently. SKIN: warm and dry, NEUROLOGIC: CN 2-12 grossly intact, no sensory deficit, normal cognition, normal speech, no tremor PSYCHIATRIC: alert cooperative and oriented to person, place and time. Euthymic mood, makes good eye contact, language grossly intact, recent and remote memory grossly intact. Results & Data Results & Data Vital Signs (Past 12 Hours) Vital Signs Temp Pulse Pulse Resp BP BP Pulse Ox 05/02/23 05:37 105/75 05/02/23 02:59 36.4 C L 91 H 24 96/64 L 93 05/02/23 01:54 113/74 05/02/23 00:08 101/61 05/01/23 23:05 81/46 L 85 L 05/01/23 22:57 36.5 C 91 H 18 78/49 L 93 05/01/23 21:55 85 05/01/23 21:14 88 O2 Del Method 05/02/23 05:37 05/02/23 02:59 Nasal Cannula 05/02/23 01:54 05/02/23 00:08 05/01/23 23:05 Room Air 05/01/23 22:57 Nasal Cannula 05/01/23 21:55 05/01/23 21:14 Laboratory Results [facility] 05/01/23 20:36 Sodium 132 L Potassium 4.8 Chloride 94 L Carbon Dioxide 34 H BUN 46 H Creatinine 1.20 Glucose 140 H Calcium 8.5 L Urine 05/02/23 Range/Units 00:00 Urine Color Yellow Urine Appearance Turbid A (Clear) Urine pH 7.5 (4.5-7.5) Ur Specific [place] 1.017 (1.000-1.030) Urine Protein Negative (Negative) Urine Glucose (UA) 2+ H (Negative) Diagnostic Findings Abdomen/Pelvis CT 05/02/23 01:19 Exam(s): CT ABDOMEN + PELVIS Without Contrast EXAM: CT Abdomen and Pelvis Without Intravenous Contrast CLINICAL HISTORY: Reason for exam: back pain, uti. TECHNIQUE: Axial computed tomography images of the abdomen and pelvis without intravenous contrast. CTDI is 17.01 mGy and DLP is 795.78 mGy-cm. Automated exposure control was utilized for the study. A dose lowering technique was utilized adhering to the principles of ALARA. COMPARISON: February 05, 2020 FINDINGS: Lung bases: See below. Pleural space: Moderate bilateral pleural effusions, greater on the left than the right measuring at least 7 cm. There is bibasilar atelectasis. Heart: Moderate cardiomegaly. There is a pacing device in place. ABDOMEN: Liver: Unremarkable. Gallbladder and bile ducts: There is a 1.6 cm gallstone in the gallbladder without surrounding inflammation. No ductal dilation. Pancreas: Unremarkable. No ductal dilation. Spleen: Unremarkable. No splenomegaly. Adrenals: Unremarkable. No mass. Kidneys and ureters: Unremarkable. No obstructing stones. No hydronephrosis. Stomach and bowel: Fecal impaction of the rectum which is dilated to 10 cm consistent with constipation. There is diverticulosis of the sigmoid colon without evidence of acute diverticulitis. No pneumoperitoneum is seen. PELVIS: Appendix: No findings to suggest acute appendicitis. Bladder: Unremarkable. No stones. Reproductive: Unremarkable as visualized. ABDOMEN and PELVIS: Intraperitoneal space: See above. Bones/joints: Moderate to severe multilevel degenerative changes throughout the spine including compression fractures at T9, T11, L1, L4, and L5 which appear chronic. No dislocation. Soft tissues: Unremarkable. Vasculature: The abdominal aorta is mildly calcified and tortuous but nondilated. Lymph nodes: Unremarkable. No enlarged lymph nodes. IMPRESSION: 1. Fecal impaction of the rectum which is dilated to 10 cm consistent with constipation. There is diverticulosis of the sigmoid colon without evidence of acute diverticulitis. No pneumoperitoneum is seen. 2. Moderate bilateral pleural effusions, greater on the left than the right measuring at least 7 cm. There is bibasilar atelectasis. Electronically signed by: Ramírez Guadalupe MD 05/02/23 03:[address] 05/02/23 01:25 Exam(s): CT HEAD Without Contrast EXAM: CT Head Without Intravenous Contrast CLINICAL HISTORY: Reason for exam: ams. TECHNIQUE: Axial computed tomography images of the head/brain without intravenous contrast. CTDI is 38.24 mGy and DLP is 702.46 mGy-cm. Automated exposure control was utilized for the study. A dose lowering technique was utilized adhering to the principles of ALARA. COMPARISON: Comparison made to prior head CT from January 03, 2021. FINDINGS: Brain: Remote ischemic injury of the right capsule. No hemorrhage. Mild nonspecific white matter changes. No edema. Ventricles: Advanced ventriculomegaly. Bones/joints: Hyperostosis frontalis interna. No acute fracture. Soft tissues: Bilateral lens replacements. Mild soft tissue swelling over the left forehead. Sinuses: Unremarkable as visualized. No acute sinusitis. Mastoid air cells: Unremarkable as visualized. No mastoid effusion. IMPRESSION: No evidence of acute intracranial pathology. Electronically signed by: Jaenlle Duarte MD 05/02/23 02:43 AM Medications Administered Current Inpatient Medications Acetaminophen (Acetaminophen 325 Mg Tab) 650 mg PO TID DONNA Stop: 05/25/23 13:59 Last Admin: 05/01/23 19:59 Dose: 650 mg Acetaminophen (Acetaminophen 325 Mg Tab) 650 mg PO Q4H PRN PRN Reason: Pain or Fever Stop: 05/25/23 12:48 Al Hydrox/Mg Hydrox/Simethicone (Aluminum/Magnesium Susp 30 Ml Udc) 15 ml PO Q4H PRN PRN Reason: Dyspepsia Stop: 05/25/23 12:48 Aspirin (Aspirin 81 Mg Ectab) 81 mg PO QAM DONNA Stop: 05/25/23 12:48 Last Admin: 05/01/23 08:43 Dose: 81 mg Calcium/Vitamin D (Calcium 600mg + Vit D 400 Iu Tab) 1 tab PO Q12 DONNA Stop: 05/25/23 12:48 Last Admin: 05/01/23 19:59 Dose: 1 tab Cyanocobalamin (Cyanocobalamin (B-12) 500 Mcg Tablet) 2,000 mcg PO QAM [facility] Stop: 05/25/23 12:48 Last Admin: 05/01/23 08:43 Dose: 2,000 mcg Empagliflozin (Empagliflozin 10 Mg Tab) 10 mg PO DAILY [facility] Stop: 05/25/23 12:48 Last Admin: 05/01/23 08:42 Dose: 10 mg Ferrous Sulfate (Ferrous Sulfate 325 Mg Tab) 325 mg PO Q2D@0900 [facility] Stop: 05/25/23 12:48 Last Admin: 05/01/23 08:44 Dose: 325 mg Fluticasone Propionate (Fluticasone Propionate Na Spr 16 Gm Btl) 2 sprays NA HS [facility] Stop: 05/25/23 20:59 Last Admin: 05/01/23 20:00 Dose: 2 sprays Furosemide (Furosemide 40 Mg/4 Ml Vial) 40 mg IV TID@0800,1200,1700 [facility] Stop: 05/30/23 08:59 Last Admin: 05/01/23 18:46 Dose: Not Given Gabapentin (Gabapentin 300 Mg Cap) 300 mg PO HS [facility] Stop: 05/25/23 20:59 Last Admin: 05/01/23 19:59 Dose: 300 mg Heparin Sodium (Porcine) (Heparin Sod 5,000 Unit/0.5 Ml Vial) 5,000 units SQ Q8 [facility] Stop: 05/25/23 13:59 Last Admin: 04/30/23 13:35 Dose: 5,000 units Cefepime HCl 1,000 mg/ Syringe 10 mls @ 5 mls/min IV Q12H [facility] Stop: 05/12/23 13:59 Levothyroxine Sodium (Levothyroxine Sodium 75 Mcg Tablet) 75 mcg PO DAILYBB [facility] Stop: 05/25/23 12:48 Last Admin: 05/02/23 05:29 Dose: 75 mcg Magnesium Hydroxide (Magnesium Hydroxide Susp 30 Ml Udc) 30 ml PO Q12H PRN PRN Reason: Constipation Stop: 05/25/23 12:48 Last Admin: 05/02/23 05:29 Dose: 30 ml Magnesium Oxide (Magnesium Oxide 400 Mg Tab) 400 mg PO QAM [facility] Stop: 05/25/23 12:48 Last Admin: 05/01/23 08:42 Dose: 400 mg Metoprolol Tartrate (Metoprolol Tartrate 25 Mg Tab) 12.5 mg PO BID [facility] Stop: 05/25/23 12:48 Last Admin: 05/01/23 21:00 Dose: Not Given Nitroglycerin (Nitroglycerin Sl 0.4 Mg/Tab Tab) 0.4 mg SL Q5M PRN PRN Reason: Chest Pain Stop: 05/25/23 12:48 Polyethylene Glycol (Polyethylene (Miralax) 17 Gm Pack) 17 gm PO DAILY PRN PRN Reason: Constipation Stop: 05/25/23 12:48 Last Admin: 05/02/23 05:29 Dose: 17 gm Senna/Docusate Sodium (Docusate Sodium/Senna 50/8.6mg Tab) 1 tab PO BID [facility] Stop: 06/01/23 06:34 Spironolactone (Spironolactone 12.5 Mg Tab) 12.5 mg PO QAM [facility] Stop: 05/31/23 08:59 Last Admin: 05/01/23 09:42 Dose: 12.5 mg (2) Pulmonary embolism Acute cor pulmonale presence: unspecified Chronicity: unspecified Pulmonary embolism type: unspecified Qualified Code(s): I26.99 - Other pulmonary embolism without acute cor pulmonale (3) Atrial fibrillation Atrial fibrillation type: persistent (not longstanding) Qualified Code(s): I48.19 - Other persistent atrial fibrillation (7) Hypertension Hypertension type: unspecified Qualified Code(s): I10 - Essential (primary) hypertension
[2023-05-02] MEDS: DOCUSATE SODIUM/SENNA 50/8.6MG TAB PO SCH ×2 (08:45→20:50)
[2023-05-02] MEDS: METOPROLOL TARTRATE 25 MG TAB PO SCH ×2 (08:46→20:49)
[2023-05-02] MEDS: CALCIUM 600MG + VIT D 400 IU TAB PO SCH ×2 (08:47→20:50)
[2023-05-02] MEDS: EMPAGLIFLOZIN 10 MG TAB PO SCH (08:47)
[2023-05-02] MEDS: CYANOCOBALAMIN (B-12) 500 MCG TABLET PO SCH (08:47)
[2023-05-02] MEDS: MAGNESIUM OXIDE 400 MG TAB PO SCH (08:48)
[2023-05-02] MEDS: ACETAMINOPHEN 325 MG TAB PO SCH ×3 (08:48→20:50)
[2023-05-02] MEDS: ASPIRIN 81 MG ECTAB PO SCH (08:49)
[2023-05-02 10:12] LABS: Anion Gap 6 (3-11); BUN Creatinine Ratio 34.4 (10-20); Blood Urea Nitrogen 43 mg/dl (6-23); Calcium 9.2 mg/dl (8.6-10.3); Carbon Dioxide 35 mmol/L (21-32); Chloride 93 mmol/L (98-107); Creatinine Clr Calc Pharmacy 26.1 ml/min; Est GFR (African American) 45.1 ml/min; Est GFR (Non-African American) 38.9 ml/min; Glucose 99 mg/dl (70-99(Fasting)); Magnesium 2.8 mg/dl (1.7-2.4); Sodium 134 mmol/L (136-145)
--- NOTE | 2023-05-02 10:15 | Pulmonology Progress Note ---
Date of Service May 02, 2023 Assessment & Plan (1) Pulmonary embolism: Acute cor pulmonale presence: unspecified Chronicity: unspecified Pulmonary embolism type: unspecified Qualified Code(s): I26.99 - Other pulmonary embolism without acute cor pulmonale (2) CHF (congestive heart failure): Heart failure chronicity: acute on chronic Heart failure type: u nspecified Qualified Code(s): I50.9 - Heart failure, unspecified (3) Pleural effusion: (4) Acute heart failure with preserved ejection fraction (HFpEF): (5) Decompensated heart failure: (6) Atrial fibrillation: Atrial fibrillation type: persistent (not longstanding) Qualified Code(s): I48.19 - Other persistent atrial fibrillation Plan CTA chest 04/25/2023 personally reviewed: Bilateral pleural effusion left greater than right Small subsegmental pulmonary emboli bilaterally Cardiomegaly Kyphosis Minimal but insignificant mediastinal lymphadenopathy 2D echo 10/03/2022: EF 55-60%, RV normal in size and function, moderate MR, PASP 36 mmHg -- Bilateral pleural effusion Left> right Etiology is likely cardiac from HFpEF Patient is making good amount of urine Continue with diuretics --Shortness of breath Multifactorial From pulmonary edema, bilateral pleural effusions as well as small segmental PE Continue with diuretics O2 supplementation to keep O2 saturation greater than 90% BiPAP nightly and as needed shortness --Acute subsegmental PE Appreciated on CTA 04/25/2023 Not on therapeutic anticoagulation because of history of intracerebral bleed Plan: In/out: -4 L since coming to the hospital Patient initially did not want thoracentesis done, last evening she changed her mind and stated that she might do thoracentesis Today when I saw her in explained again the procedure she is reluctant to have the procedure done and 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 For the time being would recommend to continue with diuresis. Patient's daughter Erika [phone] was also called and updated Okay to resume subcu heparin if patient does not have plan for thoracentesis Case was discussed with RN as well as hospitalist Recommend palliative care consult Please note the above document was generated using voice recognition software. It may contain grammatical, syntax or spelling errors.Any formal questions or concerns about the content, text or information contained within the body of this dictation should be directly addressed to the provider for clarification. Admission and Anticipated Discharge Date Admission Date: April 25, 2023 Subjective Patient seen and examined at bedside. No acute distress. Overnight patient's blood pressure was on the softer side and she went into A- fib with RVR. At the time of examination she was not in respiratory distress. She was sitting on the commode. Denies any headache, no nausea, no vomiting No dizziness RN was also at bedside Review of Systems 2 Review of Systems: All systems reviewed & are unremarkable except as noted in Subjective Physical Exam 2 Physical Exam: Constitutional: No acute distress HEENT: EOMI, PERRLA, positive JVD Respiratory system: Decreased air entry bilaterally, more decreased on the left side, no wheeze, no rhonchi, positive crackles bilateral lower lobes CVS: S1-S2 positive, positive 3 out of 6 systolic murmur appreciated best at aorta Abdomen: Soft, nontender, nondistended, positive bowel sounds x4 Extremities: +2 pulses bilaterally radialis/ dorsalis pedis, no cyanosis, no edema Neuro: Awake alert oriented to self and place Psych: Normal mood and affect G/U: No Choudhary Skin: no rashes, warm and dry Lymphatic: no cervical or axillary lymphadenopathy Results & Data Results & Data Vital Signs (Past 12 Hours) Vital Signs Temp Pulse Resp BP BP Pulse Ox O2 Del Method 05/02/23 05:37 105/75 05/02/23 02:59 36.4 C L 91 H 24 96/64 L 93 Nasal Cannula 05/02/23 01:54 113/74 05/02/23 00:08 101/61 05/01/23 23:05 81/46 L 85 L Room Air 05/01/23 22:57 36.5 C 91 H 18 78/49 L 93 Nasal Cannula Laboratory Results 04/28/23 06:42 PG Care Time/CCT Total # of Minutes Spent Total Time Spent with Patient: Total time spent is greater than 50% in coordination of care (as documented) at patient's floor/unit and/or counseling patient: Coding Level of Care Code 14092 SUB INP/OBS CARE 3/50MIN Diagnoses Pulmonary embolism I26.99 Acute cor pulmonale presence: unspecified Chronicity: unspecified Pulmonary embolism type: unspecified CHF (congestive heart failure) I50.9 Heart failure chronicity: acute on chronic Heart failure type: unspecified Pleural effusion J90 Acute heart failure with preserved ejection fraction (HFpEF) I50.31 Decompensated heart failure I50.9 Persistent atrial fibrillation I48.19 Atrial fibrillation type: persistent (not longstanding)
--- NOTE | 2023-05-02 11:41 | Cardiology Progress Note ---
Date of Service May 02, 2023 Assessment & Plan (1) Acute heart failure with preserved ejection fraction (HFpEF): (2) Pulmonary embolism: (3) Pleural effusion: (4) A-fib: (5) Acute on chronic renal insufficiency: Plan Patient admitted with multifactorial SOB. Diagnosed with subsegmental PE with pulm vascular congestion and b/l pulmonary effusions. Venous duplex negative for DVT. Given history of spontaneous intra-abdominal hemorrhage, as well as atraumatic intracerebral hemorrhage, full anticoagulation felt to be high risk. Continue subcutaneous heparin as ordered for DVT proph. Acute on chronic HFpEF -Unfortunately despite attempted diuresis, respiratory status failing to improve. -Overnight patient became hypotensive requiring gentle hydration. Diuretics now on hold due to intravascular volume depletion. -She is now willing to consider thoracentesis. -Repeat chest xray today. If no improvement in left sided effusion, will ask Pulm to return to see her and discuss thoracentesis again. She reports in agreement to this plan. Telemetry demonstrates rate controlled atrial fibrillation. Continue metoprolol and low-dose aspirin. Not anticoagulation candidate. Case discussed with Dr. Bermudez I spent a total of 30 minutes on the date of service in preparation, delivery, and documentation of the care provided to this patient, excluding any time spent in the performance of separately billed services. Alia Vasquez PA-C Department of Cardiology, [facility] This chart was completed in part utilizing Speech Voice Recognition Software. Grammatical errors, random word insertions, pronoun errors, and incomplete sentences are an occasional consequence of this system due to software limitations, ambient noise, and hardware issues. Any formal questions or concerns about the content, text, or information contained within the body of this dictation should be directly addressed to the provider for clarification. Admission and Anticipated Discharge Date Admission Date: April 25, 2023 Supervising Physician Co-Signing Physician Notes Patient seen and examined at bedside. Denies chest pain or shortness of breath at rest. Hypotensive overnight requiring IV hydration. Denies chest pain or palpitations. Rate controlled atrial fibrillation on telemetry. Remains reluctant to proceed with thoracentesis. PE: GEN: NAD, chronically ill. Heart: Irregular rhythm, normal S1-S2. No murmur. Lungs: Diminished breath sounds bilaterally. No rhonchi or wheeze. Extremities: No edema. A/P: Agree with above PA-C history, physical exam, assessment and plan. Intravascular volume depletion suggested by hypotension requiring IV hydration overnight. Diuretics currently on hold. Patient reluctant to proceed with thoracentesis. Her overall clinical picture remains poor. Palliative care is reasonable at this time. Restart low-dose Lasix, 40 mg daily as blood pressure improves. Appreciate pulmonary input. Contraindications to chronic anticoagulation. Continue low-dose aspirin and beta-carmine. Cardiology will sign off. Please call with additional concerns/questions. Subjective Patient resting in bed. Ongoing SOB at rest and with minimal activity. Had episode of hypotension through the night. Diuretics held. Afib with elevated rates noted at the time. Received one dose IV digoxin and rates improved. No chest pain. Patient willing to consider thoracentesis. Repeat chest xray ordered for this morning. Review of Systems Review of Systems: All systems reviewed & are unremarkable except as noted in HPI & below Physical Exam Constitutional: + ill appearing and + cachectic; no acut e distress Respiratory: no respiratory distress, no labored breathing, no retractions and no cough Auscultation: + diminished lung sounds (Bases bilateral) and + crackles; no wheezes Cardiovascular: Rate/Rhythm: + irregularly irregular Heart Sounds: normal S1 and normal S2; no murmur Extremities: no edema Gastrointestinal (Abdomen): normal bowel sounds, soft, nontender, no hepatosplenomegaly Inspection/Auscultation: normal bowel sounds; abdomen not distended Percussion/Palpation: abdomen soft; abdomen nontender, no guarding and abdomen not rigid Neurologic: CN's II-XI intact bilaterally and moves all extremities; no focal motor deficits Results & Data Vital Signs (Past 12 Hours) Vital Signs Temp Pulse Resp BP BP Pulse Ox O2 Del Method 05/02/23 05:37 105/75 05/02/23 02:59 36.4 C L 91 H 24 96/64 L 93 Nasal Cannula 05/02/23 01:54 113/74 05/02/23 00:08 101/61 Laboratory Results Comprehensive Metabolic Panel 05/01/23 05/02/23 05/02/23 Range/Units 20:36 09:12 10:28 Sodium 132 L 134 L (136-145) mmol/L Potassium 4.8 TNP 5.0 (3.5-5.1) mmol/L Chloride 94 L 93 L (98-107) mmol/L Carbon Dioxide 34 H 35 H (21-32) mmol/L BUN 46 H 43 H (6-23) mg/dl Creatinine 1.20 1.25 H (0.6-1.2) mg/dl Glucose 140 H 99 (70-99(Fasting)) mg/dl Calcium 8.5 L 9.2 (8.6-10.3) mg/dl Intake and Output 05/01/23 05/02/23 05/02/23 22:59 06:59 14:59 Intake Total 50 / 220 50 / 220 Output Total Balance 50 / 119 49 / 119 Intake: IV 50 / 100 50 / 100 Albumin 25% 12.5 gm In 50 ml @ 50 / 100 50 / 100 50 mls/hr IV ONE ONE Rx#: [id number] Output: # Bowel Movements Other: Other Intake Source sips sips Weight 51.1 kg Diagnostic Findings Telemetry reviewed: Afib controlled rates with intermittent pacing Medications Administered Current Inpatient Medications Acetaminophen (Acetaminophen 325 Mg Tab) 650 mg PO TID [facility] Stop: 05/25/23 13:59 Last Admin: 05/02/23 08:48 Dose: 650 mg Acetaminophen (Acetaminophen 325 Mg Tab) 650 mg PO Q4H PRN PRN Reason: Pain or Fever Stop: 05/25/23 12:48 Al Hydrox/Mg Hydrox/Simethicone (Aluminum/Magnesium Susp 30 Ml Udc) 15 ml PO Q4H PRN PRN Reason: Dyspepsia Stop: 05/25/23 12:48 Aspirin (Aspirin 81 Mg Ectab) 81 mg PO QAM [facility] Stop: 05/25/23 12:48 Last Admin: 05/02/23 08:49 Dose: 81 mg Calcium/Vitamin D (Calcium 600mg + Vit D 400 Iu Tab) 1 tab PO Q12 [facility] Stop: 05/25/23 12:48 Last Admin: 05/02/23 08:47 Dose: 1 tab Cyanocobalamin (Cyanocobalamin (B-12) 500 Mcg Tablet) 2,000 mcg PO QAM [facility] Stop: 05/25/23 12:48 Last Admin: 05/02/23 08:47 Dose: 2,000 mcg Empagliflozin (Empagliflozin 10 Mg Tab) 10 mg PO DAILY [facility] Stop: 05/25/23 12:48 Last Admin: 05/02/23 08:47 Dose: 10 mg Ferrous Sulfate (Ferrous Sulfate 325 Mg Tab) 325 mg PO Q2D@0900 [facility] Stop: 05/25/23 12:48 Last Admin: 05/01/23 08:44 Dose: 325 mg Fluticasone Propionate (Fluticasone Propionate Na Spr 16 Gm Btl) 2 sprays NA HS [facility] Stop: 05/25/23 20:59 Last Admin: 05/01/23 20:00 Dose: 2 sprays Furosemide (Furosemide 40 Mg/4 Ml Vial) 40 mg IV TID@0800,1200,1700 [facility] Stop: 05/30/23 08:59 Last Admin: 05/01/23 18:46 Dose: Not Given Gabapentin (Gabapentin 300 Mg Cap) 300 mg PO HS [facility] Stop: 05/25/23 20:59 Last Admin: 05/01/23 19:59 Dose: 300 mg Heparin Sodium (Porcine) (Heparin Sod 5,000 Unit/0.5 Ml Vial) 5,000 units SQ Q8 [facility] Stop: 05/25/23 13:59 Last Admin: 04/30/23 13:35 Dose: 5,000 units Cefepime HCl 1,000 mg/ Syringe 10 mls @ 5 mls/min IV Q12H [facility] Stop: 05/12/23 13:59 Levothyroxine Sodium (Levothyroxine Sodium 75 Mcg Tablet) 75 mcg PO DAILYBB [facility] Stop: 05/25/23 12:48 Last Admin: 05/02/23 05:29 Dose: 75 mcg Magnesium Hydroxide (Magnesium Hydroxide Susp 30 Ml Udc) 30 ml PO Q12H PRN PRN Reason: Constipation Stop: 05/25/23 12:48 Last Admin: 05/02/23 05:29 Dose: 30 ml Magnesium Oxide (Magnesium Oxide 400 Mg Tab) 400 mg PO QAM [facility] Stop: 05/25/23 12:48 Last Admin: 05/02/23 08:48 Dose: 400 mg Metoprolol Tartrate (Metoprolol Tartrate 25 Mg Tab) 12.5 mg PO BID [facility] Stop: 05/25/23 12:48 Last Admin: 05/02/23 08:46 Dose: 12.5 mg Nitroglycerin (Nitroglycerin Sl 0.4 Mg/Tab Tab) 0.4 mg SL Q5M PRN PRN Reason: Chest Pain Stop: 05/25/23 12:48 Polyethylene Glycol (Polyethylene (Miralax) 17 Gm Pack) 17 gm PO DAILY PRN PRN Reason: Constipation Stop: 05/25/23 12:48 Last Admin: 05/02/23 05:29 Dose: 17 gm Senna/Docusate Sodium (Docusate Sodium/Senna 50/8.6mg Tab) 1 tab PO BID [facility] Stop: 06/01/23 06:34 Last Admin: 05/02/23 08:45 Dose: 1 tab Spironolactone (Spironolactone 12.5 Mg Tab) 12.5 mg PO QAM [facility] Stop: 05/31/23 08:59 Last Admin: 05/01/23 09:42 Dose: 12.5 mg (2) Pulmonary embolism Acute cor pulmonale presence: unspecified Chronicity: unspecified Pulmonary embolism type: unspecified Qualified Code(s): I26.99 - Other pulmonary embolism without acute cor pulmonale (4) A-fib Atrial fibrillation type: unspecified Qualified Code(s): I48.91 - Unspecified atrial fibrillation
--- NOTE | 2023-05-02 13:04 | XRay Report ---
XR chest 1V portable CLINICAL HISTORY: re-evaluate left pleural effusion TECHNIQUE: Single frontal radiograph of the chest was obtained. Comparison: Comparison is made to chest radiograph 04/30/2023 FINDINGS: An implanted pacemaker is seen. The cardiomediastinal silhouette is obscured. Interval stability of b ilateral lower lung predominant airspace opacities. Large left and small right pleural effusions are unchanged from prior exam. IMPRESSION: Interval stability of bilateral pleural effusions with underlying airspace opacities likely reflectin g atelectasis. ACT 112: Negative or not required by law. Electronically signed by: Clovis Ann M.D. 05/02/2023 1:02 PM
[2023-05-02] MEDS: CEFEPIME 1,000 MG in SYRINGE 0 ML IV SCH (15:58)
[2023-05-02] MEDS: FLUTICASONE PROPIONATE NA SPR 16 GM BTL SCH (20:47)
[2023-05-02] MEDS: GABAPENTIN 300 MG CAP PO SCH (20:50)
[2023-05-03] MEDS: CEFEPIME 1,000 MG in SYRINGE 0 ML IV SCH ×2 (01:49→13:26)
[2023-05-03] MEDS: LEVOTHYROXINE SODIUM 75 MCG TABLET PO SCH (05:45)
[2023-05-03 06:17] LABS: Hematocrit (blood only) 46.7 % (37.0-47.0); Hemoglobin 15.4 g/dl (12.0-16.0); Mean Corpuscular Hemoglobin 31.8 pg (25.0-34.0); Mean Corpuscular Volume 96.5 fL (80.0-100.0); Mean Platelet Volume 9.6 fL (9.4-12.4); Platelet Count 270 K/uL (130-400); RDW Standard Deviation 66.5 fL (36.4-46.3); Red Blood Count 4.84 M/uL (4.20-5.40); White Blood Count 7.21 K/ul (4.8-10.8)
[2023-05-03 06:38] LABS: BUN Creatinine Ratio 34.2 (10-20); Est GFR (African American) 47.4 ml/min; Est GFR (Non-African American) 40.9 ml/min; Potassium 5.2 mmol/L (3.5-5.1)
--- NOTE | 2023-05-03 09:07 | Hospitalist Progress Note ---
Date of Service May 03, 2023 Assessment & Plan (1) Acute heart failure with preserved ejection fraction (HFpEF): (2) Pulmonary embolism: Plan: Hypoxia related to acute HFpEF and acute subsegmental PE with initial pulmonary edema and bilateral pleural effusions. CXR-moderate left and small right-sided pleural effusion and pulmonary edema CTA chest revealed a small subsegmental PE in right upper lobe. Venous duplex does not show any DVT IV Lasix held 2/2 elevated creatinine, hypotension and metabolic alkalosis. Continues on metoprolol tartrate as tolerated, Jardiance and spironolactone were held given patient appears somewhat volume down and persistently alkalotic Also with mild persistent hyperkalemia. Cont monitoring on telemetry for now. (3) Atrial fibrillation: Plan: Rate controlled w Toprol 12.5 mg twice daily. No anticoagulation given history of spontaneous intra-abdominal bleeding and traumatic ICH bleeding in the past. Prior provider discussed with patient's daughter over the phone on April 26, 2023 regarding finding concerning for subsegmental PE in right upper lobe. 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 She was on Coumadin prior to that. Patient's daughter agreed that if bilateral venous duplex is negative; no plans on systemic anticoagulation given the small subsegmental PE noted in the CTA chest. Discussion was done that there is future risks of strokes and further PE. For now, risk of the anticoagulation outweigh the benefit. SCDs for DVT prophylaxis given level of frailty and risk of bleeding. (4) Metabolic alkalosis: Plan: Likely related to diuretics recently administered. Holding lasix and jardiance. Cont to encourage PO intake and rehydration. IVF today x 1 bag. Low K diet. Repeat BMP this evening. (5) History of pacemaker: (6) UTI (urinary tract infection): Plan: No evidence of UTI on UA. Denies any symptoms, however, she is a poor historian. Cefepime was restarted again overnight. Will continue this pending final urine culture recommendations. (7) Hypothyroidism: Plan: chronic, stable, cont levothyroxine per home regimen. (8) Hypertension: Plan: chronic, low normal. Cont current therapy. (9) Chronic kidney disease, stage 3a: Plan: chronic, stable. Creat at baseline. (10) Weakness: Plan: worsened by prolonged hospital stay. Encouraged her to mobilize OOB with assistance. SNF recommended. She also now has an area of skin breakdown over a spinal bony prominence consistent with a pressure ulcer. Offloading of this as much as possible is recommended. artist mannequin coloring requested to evaluate. DVT proph-heparin currently held. Cont SCDs/ambulation as tolerated. DNR/DNI Dispo-cont telemetry. Will plan to discharge her to rehab once cardiology feels she is optimized from a heart failure standpoint. As patient is declining thoracentesis, will likely need a follow-up CXR in 2-4 weeks post discharge. Palliative care has also been consulted. I spent a total of60 minutes coordinating, documenting, and providing care for this patient excluding time spent in the performance of separately billed services. Judith White DO [facility] Hospitalist Admission and Anticipated Discharge Date Admission Date: April 25, 2023 Subjective 87 yo F admitted with acute heart failure. doing well overall reports a "strong pain" in her mid back on exam she has some skin breakdown over the bony prominences. she reports pain is "in the bone" noted to have chronic compression fractures in this area and lumbar spine on imaging added tramadol to tylenol PRN to help with pain control efforts. she reiterated this morning "i just don't like the idea of them sticking a needle in my chest" reluctant to get OOB to chair, but we discussed the importance of this. Physical Exam Physical Exam: CONSTITUTIONAL: elderly, frail, vitals as above, generally well-appearing, NAD EYES: normal conjunctivae, no scleral icterus, ENT: external ear and nose normal, MMM NECK: trachea midline, RESPIRATORY: clear to auscultation bilaterally, diminished breath sounds throughout with exam limited by patient position in bed and overall weakness, frailty, no crackles, rales or wheezes, normal respiratory effort CARDIOVASCULAR: regular rate and rhythm, S1 and 2 heard without murmurs, gallops or rubs, no JVD CHEST: +pacemaker to left anterior chest wall GASTROINTESTINAL: normal bowel sounds, soft, nontender, slightly protuberant but not distended MUSCULOSKELETAL: moves all extremities symmetrically, generalized weakness, cannot sit up independently. SKIN: warm and dry, NEUROLOGIC: CN 2-12 grossly intact, no sensory deficit, normal cognition, normal speech, no tremor PSYCHIATRIC: alert cooperative and oriented to person, place and time. Euthymic mood, makes good eye contact, language grossly intact, recent and remote memory grossly intact. Results & Data Results & Data Vital Signs (Past 12 Hours) Vital Signs Temp Pulse Pulse Resp BP BP Pulse Ox 05/03/23 07:33 36.5 C 88 20 100/64 93 05/03/23 06:00 90 23 05/03/23 02:59 36.4 C L 86 28 H 95/65 L 98 05/03/23 00:41 92/60 L 05/03/23 00:10 36.5 C 72 24 88/47 L 99 05/02/23 22:29 05/02/23 22:24 86 22 96/53 L 93 05/02/23 21:58 73 O2 Del Method O2 Flow Rate 05/03/23 07:33 Nasal Cannula 1 05/03/23 06:00 05/03/23 02:59 Nasal Cannula 2 05/03/23 00:41 05/03/23 00:10 Nasal Cannula 1 05/02/23 22:29 Nasal Cannula 3 05/02/23 22:24 Nasal Cannula 3 05/02/23 21:58 Laboratory Results Short CBC 05/03/23 Range/Units 06:05 WBC 7.21 (4.8-10.8) K/ul Hgb 15.4 (12.0-16.0) g/dl Hct 46.7 (37.0-47.0) % Plt Count 270 (130-400) K/uL BMP 05/02/23 05/02/23 05/03/23 09:12 10:28 06:05 Sodium 134 L 136 Potassium TNP 5.0 5.2 H Chloride 93 L 95 L Carbon Dioxide 35 H 38 H BUN 43 H 41 H Creatinine 1.25 H 1.20 Glucose 99 84 Calcium 9.2 9.0 Medications Administered Current Inpatient Medications Acetaminophen (Acetaminophen 325 Mg Tab) 650 mg PO Q4H PRN PRN Reason: Pain or Fever Stop: 05/25/23 12:48 Al Hydrox/Mg Hydrox/Simethicone (Aluminum/Magnesium Susp 30 Ml Udc) 15 ml PO Q4H PRN PRN Reason: Dyspepsia Stop: 05/25/23 12:48 Aspirin (Aspirin 81 Mg Ectab) [facility] Stop: 05/25/23 12:48 Last Admin: 05/02/23 08:49 Dose: 81 mg Calcium/Vitamin D (Calcium 600mg + Vit D 400 Iu Tab) 1 tab PO Q12 [facility] Stop: 05/25/23 12:48 Last Admin: 05/02/23 20:50 Dose: 1 tab Cyanocobalamin (Cyanocobalamin (B-12) 500 Mcg Tablet) 2,000 mcg PO QAM [facility] Stop: 05/25/23 12:48 Last Admin: 05/02/23 08:47 Dose: 2,000 mcg Empagliflozin (Empagliflozin 10 Mg Tab) 10 mg PO DAILY [facility] Stop: 05/25/23 12:48 Last Admin: 05/02/23 08:47 Dose: 10 mg Ferrous Sulfate (Ferrous Sulfate 325 Mg Tab) 325 mg PO Q2D@0900 [facility] Stop: 05/25/23 12:48 Last Admin: 05/01/23 08:44 Dose: 325 mg Fluticasone Propionate (Fluticasone Propionate Na Spr 16 Gm Btl) 2 sprays NA HS [facility] Stop: 05/25/23 20:59 Last Admin: 05/02/23 20:47 Dose: 2 sprays Furosemide (Furosemide 40 Mg/4 Ml Vial) 40 mg IV TID@0800,1200,1700 [facility] Stop: 05/30/23 08:59 Last Admin: 05/01/23 18:46 Dose: Not Given Gabapentin (Gabapentin 300 Mg Cap) 300 mg PO HS [facility] Stop: 05/25/23 20:59 Last Admin: 05/02/23 20:50 Dose: 300 mg Heparin Sodium (Porcine) (Heparin Sod 5,000 Unit/0.5 Ml Vial) 5,000 units SQ Q8 [facility] Stop: 05/25/23 13:59 Last Admin: 04/30/23 13:35 Dose: 5,000 units Cefepime HCl 1,000 mg/ Syringe 10 mls @ 5 mls/min IV Q12H [facility] Stop: 05/12/23 13:59 Last Admin: 05/03/23 01:49 Dose: 5 mls/min Levothyroxine Sodium (Levothyroxine Sodium 75 Mcg Tablet) 75 mcg PO DAILYBB [facility] Stop: 05/25/23 12:48 Last Admin: 05/03/23 05:45 Dose: 75 mcg Magnesium Hydroxide (Magnesium Hydroxide Susp 30 Ml Udc) 30 ml PO Q12H PRN PRN Reason: Constipation Stop: 05/25/23 12:48 Last Admin: 05/02/23 20:48 Dose: 30 ml Magnesium Oxide (Magnesium Oxide 400 Mg Tab) 400 mg PO QAM [facility] Stop: 05/25/23 12:48 Last Admin: 05/02/23 08:48 Dose: 400 mg Metoprolol Tartrate (Metoprolol Tartrate 25 Mg Tab) 12.5 mg PO BID [facility] Stop: 05/25/23 12:48 Last Admin: 05/02/23 20:49 Dose: 12.5 mg Nitroglycerin (Nitroglycerin Sl 0.4 Mg/Tab Tab) 0.4 mg SL Q5M PRN PRN Reason: Chest Pain Stop: 05/25/23 12:48 Polyethylene Glycol (Polyethylene (Miralax) 17 Gm Pack) 17 gm PO DAILY PRN PRN Reason: Constipation Stop: 05/25/23 12:48 Last Admin: 05/02/23 05:29 Dose: 17 gm Senna/Docusate Sodium (Docusate Sodium/Senna 50/8.6mg Tab) 1 tab PO BID [facility] Stop: 06/01/23 06:34 Last Admin: 05/02/23 20:50 Dose: 1 tab Spironolactone (Spironolactone 12.5 Mg Tab) 12.5 mg PO QAM [facility] Stop: 05/31/23 08:59 Last Admin: 05/01/23 09:42 Dose: 12.5 mg (2) Pulmonary embolism Acute cor pulmonale presence: unspecified Chronicity: unspecified Pulmonary embolism type: unspecified Qualified Code(s): I26.99 - Other pulmonary embolism without acute cor pulmonale (3) Atrial fibrillation Atrial fibrillation type: persistent (not longstanding) Qualified Code(s): I48.19 - Other persistent atrial fibrillation (8) Hypertension Hypertension type: unspecified Qualified Code(s): I10 - Essential (primary) hypertension
[2023-05-03] MEDS ORDERED: SODIUM CHLORIDE 0.9% 1,000 ML IV SCH (09:15)
[2023-05-03] MEDS: MAGNESIUM OXIDE 400 MG TAB PO SCH (09:22)
[2023-05-03] MEDS: CYANOCOBALAMIN (B-12) 500 MCG TABLET PO SCH (09:22)
[2023-05-03] MEDS: ASPIRIN 81 MG ECTAB PO SCH (09:22)
[2023-05-03] MEDS: DOCUSATE SODIUM/SENNA 50/8.6MG TAB PO SCH ×2 (09:22→20:38)
[2023-05-03] MEDS: EMPAGLIFLOZIN 10 MG TAB PO SCH (09:22)
[2023-05-03] MEDS: METOPROLOL TARTRATE 25 MG TAB PO SCH ×2 (09:22→20:38)
[2023-05-03] MEDS: CALCIUM 600MG + VIT D 400 IU TAB PO SCH ×2 (09:22→20:38)
[2023-05-03] MEDS ORDERED: traMADol HCL 50 MG TABLET PO STA (11:21)
[2023-05-03 18:51] LABS: BUN Creatinine Ratio 38.8 (10-20); Calcium 8.5 mg/dl (8.6-10.3); Creatinine Clr Calc Pharmacy 30.3 ml/min; Est GFR (Non-African American) 49.2 ml/min; Potassium 4.9 mmol/L (3.5-5.1)
[2023-05-03] MEDS: GABAPENTIN 300 MG CAP PO SCH (20:38)
[2023-05-03] MEDS: FLUTICASONE PROPIONATE NA SPR 16 GM BTL SCH (20:38)
[2023-05-04] MEDS: CEFEPIME 1,000 MG in SYRINGE 0 ML IV SCH (02:02)
[2023-05-04] MEDS: LEVOTHYROXINE SODIUM 75 MCG TABLET PO SCH (04:30)
[2023-05-04 07:26] LABS: BUN Creatinine Ratio 37.6 (10-20); Calcium 8.6 mg/dl (8.6-10.3); Creatinine Clr Calc Pharmacy 36.2 ml/min; Est GFR (African American) 64.5 ml/min; Est GFR (Non-African American) 55.6 ml/min; Potassium 4.8 mmol/L (3.5-5.1)
[2023-05-04] MEDS: DOCUSATE SODIUM/SENNA 50/8.6MG TAB PO SCH ×2 (08:35→20:24)
[2023-05-04] MEDS: METOPROLOL TARTRATE 25 MG TAB PO SCH ×2 (08:36→18:13)
[2023-05-04] MEDS: ASPIRIN 81 MG ECTAB PO SCH (08:37)
[2023-05-04] MEDS: CALCIUM 600MG + VIT D 400 IU TAB PO SCH ×2 (08:37→20:24)
[2023-05-04] MEDS: MAGNESIUM OXIDE 400 MG TAB PO SCH (08:37)
[2023-05-04] MEDS: CYANOCOBALAMIN (B-12) 500 MCG TABLET PO SCH (08:37)
--- NOTE | 2023-05-04 11:26 | Hospitalist Progress Note ---
Date of Service May 04, 2023 Assessment & Plan (1) Acute heart failure with preserved ejection fraction (HFpEF): Plan: appears more compensated, although there were limitations with giving additional lasix given her hypotension and dehydration. Thoracentesis declined by patient repeatedly. Will restart her oral lasix tonight. Trend BMP in am. (2) Pulmonary embolism: Plan: Hypoxia related to acute HFpEF and acute subsegmental PE with initial pulmonary edema and bilateral pleural effusions. CXR-moderate left and small right-sided pleural effusion and pulmonary edema CTA chest revealed a small subsegmental PE in right upper lobe. Venous duplex does not show any DVT Hospitalist discussed with patient's daughter over the phone on April 26, 2023 regarding finding concerning for subsegmental PE in right upper lobe. 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 She was on Coumadin prior to that. Patient's daughter agreed that if bilateral venous duplex is negative; no plans on systemic anticoagulation given the small subsegmental PE noted in the CTA chest. Discussion was done that there is future risks of strokes and further PE. For now, risk of the anticoagulation outweigh the benefit. SCDs for DVT prophylaxis given level of frailty and risk of bleeding. (3) Atrial fibrillation: Plan: Rate controlled w Toprol 12.5 mg twice daily. Some elevated heart rate given agitation tonight. HR is around 112bm on EKG. Increasing her metoprolol to 25mg PO BID. No anticoagulation given history of spontaneous intra-abdominal bleeding and traumatic ICH bleeding in the past. Continues on metoprolol tartrate as tolerated, Jardiance and spironolactone were held given patient appears somewhat volume down and persistently alkalotic. Labs are better after IVF given, however, would hold until she proves more sta bility. Also with mild persistent hyperkalemia that is also improved with rehydration. (4) Metabolic alkalosis: Plan: Likely related to diuretics recently administered. Holding lasix and jardiance. Cont to encourage PO intake and rehydration. (5) Delirium: Plan: Possibly just a hospital acquired delirium, however, she also has known compression fracture in her spnal column. Will start scheduled Tylenol 1gm PO q8h and continue PRN tramadol in case the confusion is from uncontrolled pain. (6) UTI (urinary tract infection): Plan: ruled out, cefepime was stopped. (7) History of pacemaker: (8) Hypothyroidism: Plan: chronic, stable, cont levothyroxine per home regimen. (9) Hypertension: Plan: chronic, low normal. Cont current therapy. (10) Chronic kidney disease, stage 3a: Plan: chronic, stable. Creat at baseline/improved. BMP in am after restarting lasix. (11) Weakness: Plan: worsened by prolonged hospital stay. Encouraged her to mobilize OOB with assistance. SNF recommended. She also now has an area of skin breakdown over a spinal bony prominence consistent with a pressure ulcer. Offloading of this as much as possible is recommended. manager dental requested to evaluate. DVT proph-heparin currently held. Cont SCDs/ambulation as tolerated. DNR/DNI Dispo-to floor. Given she is not getting out of bed may need to consider SNF for rehab. She will need to move around more in order to mobilize the fluid in her lungs. High risk of readmission. I spent a total of60 minutes coordinating, documenting, and providing care for this patient excluding time spent in the performance of separately billed services. Judith White DO [facility] Hospitalist Admission and Anticipated Discharge Date Admission Date: April 25, 2023 Subjective 87 yo F admitted with acute heart failure. 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 All questions were answered. I did briefly touch on the possibility of Hospice and she isn't sure and is good with speaking with Palliative provider after the weekend Daughter states it is time patient and her move [place] where more care may be provided. Daughter states she has been trying to call [facility] without any response. Physical Exam Physical Exam: CONSTITUTIONAL: elderly, frail, vitals as above, generally well-appearing, +confused and some agitation. EYES: normal conjunctivae, no scleral icterus, ENT: external ear and nose normal, MMM NECK: trachea midline, RESPIRATORY: clear to auscultation bilaterally, diminished breath sounds thr oughout with exam limited by patient position in bed and overall weakness, frailty, no crackles, rales or wheezes, normal respiratory effort CARDIOVASCULAR: regular rate and rhythm, S1 and 2 heard without murmurs, gallops or rubs, no JVD CHEST: +pacemaker to left anterior chest wall GASTROINTESTINAL: normal bowel sounds, soft, nontender, slightly protuberant but not distended MUSCULOSKELETAL: moves all extremities symmetrically, generalized weakness SKIN: warm and dry, skin breakdown on posterior spine over bony prominence. NEUROLOGIC: CN 2-12 grossly intact, no sensory deficit, normal cognition, normal speech, no tremor PSYCHIATRIC: confused and agitated Results & Data Results & Data Vital Signs (Past 12 Hours) Vital Signs Temp Pulse Resp BP BP Pulse Ox O2 Del Method 05/04/23 08:07 36.3 C L 81 18 110/71 96 Nasal Cannula 05/04/23 03:00 96 H 14 96/62 L 96 Room Air O2 Flow Rate 05/04/23 08:07 2 05/04/23 03:00 Laboratory Results BMP 05/03/23 05/04/23 18:16 06:28 Sodium 133 L 134 L Potassium 4.9 4.8 Chloride 97 L 97 L Carbon Dioxide 30 32 BUN 40 H 35 H Creatinine 1.03 0.93 Glucose 118 H 79 Calcium 8.5 L 8.6 Medications Administered Current Inpatient Medications Acetaminophen (Acetaminophen 325 Mg Tab) 650 mg PO Q4H PRN PRN Reason: Pain or Fever Stop: 05/25/23 12:48 Last Admin: 05/03/23 09:23 Dose: 650 mg Al Hydrox/Mg Hydrox/Simethicone (Aluminum/Magnesium Susp 30 Ml Udc) 15 ml PO Q4H PRN PRN Reason: Dyspepsia Stop: 05/25/23 12:48 Aspirin (Aspirin 81 Mg Ectab) 81 mg PO QAM [facility] Stop: 05/25/23 12:48 Last Admin: 05/04/23 08:37 Dose: 81 mg Calcium/Vitamin D (Calcium 600mg + Vit D 400 Iu Tab) 1 tab PO Q12 [facility] Stop: 05/25/23 12:48 Last Admin: 05/04/23 08:37 Dose: 1 tab Cyanocobalamin (Cyanocobalamin (B-12) 500 Mcg Tablet) 2,000 mcg PO QAM [facility] Stop: 05/25/23 12:48 Last Admin: 05/04/23 08:37 Dose: 2,000 mcg Empagliflozin (Empagliflozin 10 Mg Tab) 10 mg PO DAILY DONNA Stop: 05/25/23 12:48 Last Admin: 05/03/23 09:22 Dose: 10 mg Ferrous Sulfate (Ferrous Sulfate 325 Mg Tab) 325 mg PO Q2D@0900 [facility] Stop: 05/25/23 12:48 Last Admin: 05/01/23 08:44 Dose: 325 mg Fluticasone Propionate (Fluticasone Propionate Na Spr 16 Gm Btl) 2 sprays NA HS DONNA Stop: 05/25/23 20:59 Last Admin: 05/03/23 20:38 Dose: 2 sprays Furosemide (Furosemide 40 Mg/4 Ml Vial) 40 mg IV TID@0800,1200,1700 [facility] Stop: 05/30/23 08:59 Last Admin: 05/01/23 18:46 Dose: Not Given Gabapentin (Gabapentin 300 Mg Cap) 300 mg PO HS [facility] Stop: 05/25/23 20:59 Last Admin: 05/03/23 20:38 Dose: 300 mg Heparin Sodium (Porcine) (Heparin Sod 5,000 Unit/0.5 Ml Vial) 5,000 units SQ Q8 [facility] Stop: 05/25/23 13:59 Last Admin: 04/30/23 13:35 Dose: 5,000 units Levothyroxine Sodium (Levothyroxine Sodium 75 Mcg Tablet) 75 mcg PO DAILYBB [facility] Stop: 05/25/23 12:48 Last Admin: 05/04/23 04:30 Dose: 75 mcg Magnesium Hydroxide (Magnesium Hydroxide Susp 30 Ml Udc) 30 ml PO Q12H PRN PRN Reason: Constipation Stop: 05/25/23 12:48 Last Admin: 05/02/23 20:48 Dose: 30 ml Magnesium Oxide (Magnesium Oxide 400 Mg Tab) 400 mg PO QAM [facility] Stop: 05/25/23 12:48 Last Admin: 05/04/23 08:37 Dose: 400 mg Metoprolol Tartrate (Metoprolol Tartrate 25 Mg Tab) 12.5 mg PO BID [facility] Stop: 05/25/23 12:48 Last Admin: 05/04/23 08:36 Dose: 12.5 mg Nitroglycerin (Nitroglycerin Sl 0.4 Mg/Tab Tab) 0.4 mg SL Q5M PRN PRN Reason: Chest Pain Stop: 05/25/23 12:48 Polyethylene Glycol (Polyethylene (Miralax) 17 Gm Pack) 17 gm PO DAILY PRN PRN Reason: Constipation Stop: 05/25/23 12:48 Last Admin: 05/02/23 05:29 Dose: 17 gm Senna/Docusate Sodium (Docusate Sodium/Senna 50/8.6mg Tab) 1 tab PO BID DONNA Stop: 06/01/23 06:34 Last Admin: 05/04/23 08:35 Dose: Not Given Spironolactone (Spironolactone 12.5 Mg Tab) 12.5 mg PO QAM DONNA Stop: 05/31/23 08:59 Last Admin: 05/01/23 09:42 Dose: 12.5 mg Tramadol HCl (Tramadol Hcl 50 Mg Tablet) 50 mg PO Q4H PRN PRN Reason: Severe Pain (Scale 7, 8, 9,10) Stop: 06/02/23 11:20 (2) Pulmonary embolism Acute cor pulmonale presence: unspecified Chronicity: unspecified Pulmonary embolism type: unspecified Qualified Code(s): I26.99 - Other pulmonary embolism without acute cor pulmonale (3) Atrial fibrillation Atrial fibrillation type: persistent (not longstanding) Qualified Code(s): I48.19 - Other persistent atrial fibrillation (9) Hypertension Hypertension type: unspecified Qualified Code(s): I10 - Essential (primary) hypertension
[2023-05-04] MEDS: traMADol HCL 50 MG TABLET PO PRN (11:54)
[2023-05-04] MEDS: ACETAMINOPHEN 500 MG TAB PO SCH (18:13)
[2023-05-04] MEDS: FUROSEMIDE 40 MG TAB PO SCH (18:14)
[2023-05-04] MEDS: ALUMINUM/MAGNESIUM SUSP 30 ML UDC PO PRN (18:21)
[2023-05-04] MEDS: FLUTICASONE PROPIONATE NA SPR 16 GM BTL SCH (20:23)
[2023-05-04] MEDS: GABAPENTIN 300 MG CAP PO SCH (20:23)
[2023-05-04] MEDS ORDERED: OLANZapine 10 MG/2.1 ML SDV IM PRN (22:12)
[2023-05-04] MEDS ORDERED: ALBUMIN 25% 12.5 GM/50 ML VIAL IV ONE (22:30)
[2023-05-04 23:12] LABS: Calcium 8.3 mg/dl (8.6-10.3); Creatinine Clr Calc Pharmacy 31.8 ml/min; Est GFR (African American) 55.1 ml/min; Est GFR (Non-African American) 47.5 ml/min; Potassium 4.8 mmol/L (3.5-5.1)
[2023-05-05] MEDS: ACETAMINOPHEN 500 MG TAB PO SCH ×3 (02:37→17:16)
[2023-05-05] MEDS: LEVOTHYROXINE SODIUM 75 MCG TABLET PO SCH (05:46)
[2023-05-05 07:40] LABS: Hematocrit (blood only) 43.5 % (37.0-47.0); Hemoglobin 13.9 g/dl (12.0-16.0); Mean Corpuscular Hemoglobin 31.3 pg (25.0-34.0); Mean Platelet Volume 10.1 fL (9.4-12.4); Platelet Count 267 K/uL (130-400); RDW Coefficient of Variation 18.4 % (11.5-14.5); RDW Standard Deviation 66.9 fL (36.4-46.3); Red Blood Count 4.44 M/uL (4.20-5.40); White Blood Count 6.46 K/ul (4.8-10.8)
[2023-05-05 08:01] LABS: BUN Creatinine Ratio 32.1 (10-20); Calcium 8.3 mg/dl (8.6-10.3); Creatinine Clr Calc Pharmacy 30.1 ml/min; Est GFR (African American) 51.5 ml/min; Est GFR (Non-African American) 44.4 ml/min; Phosphorus 3.7 mg/dl (2.5-4.9); Potassium 4.7 mmol/L (3.5-5.1)
--- NOTE | 2023-05-05 09:13 | Hospitalist Progress Note ---
Date of Service May 05, 2023 Assessment & Plan (1) Acute heart failure with preserved ejection fraction (HFpEF): Plan: appears compensated, although there were limitations with giving additional lasix given her hypotension and dehydration. Thoracentesis declined by patient repeatedly. LAsix restarted last night and held this am 2/2 hypotension. R/S lasix tonight. Trend BMP in am. (2) Pulmonary embolism: Plan: Hypoxia related to acute HFpEF and acute subsegmental PE with initial pulmonary edema and bilateral pleural effusions. CXR-moderate left and small right-sided pleural effusion and pulmonary edema CTA chest revealed a small subsegmental PE in right upper lobe. Venous duplex does not show any DVT Hospitalist discussed with patient's daughter over the phone on April 26, 2023 regarding finding concerning for subsegmental PE in right upper lobe. 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 She was on Coumadin prior to that. Patient's daughter agreed that if bilateral venous duplex is negative; no plans on systemic anticoagulation given the small subsegmental PE noted in the CTA chest. Discussion was done that there is future risks of strokes and further PE. For now, risk of the anticoagulation outweigh the benefit. SCDs for DVT prophylaxis given level of frailty and risk of bleeding. (3) Atrial fibrillation: Plan: HR better controlled on the 25mg BID dosing of metoprolol. Cont this now. No anticoagulation given history of spontaneous intra-abdominal bleeding and traumatic ICH bleeding in the past. Continues on metoprolol tartrate as tolerated, Jardiance and spironolactone were held given patient appears somewhat volume down and persistently alkalotic. Labs are better after IVF given, however, would hold until she proves more stability. Also with mild persistent hyperkalemia that is also improved with rehydration. (4) Metabolic alkalosis: Plan: resolved (5) Delirium: Plan: Possibly just a hospital acquired delirium, however, she also has known compression fracture in her spnal column. Appears improved today, cont scheduled Tylenol and PRN tramadol for back pain control (6) History of pacemaker: (7) Hypothyroidism: Plan: chronic, stable, cont levothyroxine per home regimen. (8) Hypertension: Plan: chronic, low normal. Cont current therapy. (9) Chronic kidney disease, stage 3a: Plan: chronic, stable. Creat at baseline/improved. BMP in am after restarting lasix. (10) Weakness: Plan: worsened by prolonged hospital stay. Encouraged her to mobilize OOB with assistance. SNF recommended. She also now has an area of skin breakdown over a spinal bony prominence consistent with a pressure ulcer. Offloading of this as much as possible is recommended. heat engineering teacher requested to evaluate. DVT proph-heparin currently held. Cont SCDs/ambulation as tolerated. DNR/DNI Dispo-to floor. Given she is not getting out of bed may need to consider SNF for rehab. She will need to move around more in order to mobilize the fluid in her lungs. High risk of readmission. Judith White DO [facility] and Anticipated Discharge Date Admission Date: April 25, 2023 Subjective 87 yo F admitted with acute heart failure. Denies pain or SOB reports some pain in her back and was medicated with Tramadol Asking for "Dr. Vasquez" Somewhat confused but appears in no acute distress Physical Exam Physical Exam: CONSTITUTIONAL: elderly, frail, vitals as above, generally well-appearing, +confused but not agitated. EYES: normal conjunctivae, no scleral icterus, ENT: external ear and nose normal, MMM NECK: trachea midline, RESPIRATORY: clear to auscultation bilaterally, diminished breath sounds throughout with exam -improved aeration in lungs, frailty, no crackles, rales or wheezes, normal respiratory effort CARDIOVASCULAR: regular rate and rhythm, S1 and 2 heard without murmurs, gallops or rubs, no JVD CHEST: +pacemaker to left anterior chest wall GASTROINTESTINAL: normal bowel sounds, soft, nontender, slightly protuberant but not distended MUSCULOSKELETAL: moves all extremities symmetrically, generalized weakness SKIN: warm and dry, skin breakdown on posterior spine over bony prominence. NEUROLOGIC: CN 2-12 grossly intact, no sensory deficit, normal cognition, normal speech, no tremor PSYCHIATRIC: confused and agitated Results & Data Results & Data Vital Signs (Past 12 Hours) Vital Signs Temp Pulse Resp BP BP Pulse Ox O2 Del Method 05/04/23 22:30 36.4 C L 85 18 93/63 L 93 Nasal Cannula 05/04/23 22:03 85 20 92/65 L 94 Nasal Cannula 05/04/23 21:25 36.5 C 83 16 97/63 L 93 Nasal Cannula O2 Flow Rate 05/04/23 22:30 2 05/04/23 22:03 2 05/04/23 21:25 2 Laboratory Results Short CBC 05/05/23 Range/Units 06:44 WBC 6.46 (4.8-10.8) K/ul Hgb 13.9 (12.0-16.0) g/dl Hct 43.5 (37.0-47.0) % Plt Count 267 (130-400) K/uL BMP 05/04/23 05/05/23 22:30 06:44 Sodium 130 L 130 L Potassium 4.8 4.7 Chloride 94 L 94 L Carbon Dioxide 30 30 BUN 35 H 36 H Creatinine 1.06 1.12 Glucose 90 64 L Calcium 8.3 L 8.3 L Medications Administered Current Inpatient Medications Acetaminophen (Acetaminophen 500 Mg Tab) 1,000 mg PO Q8H [facility] Stop: 06/03/23 17:59 Last Admin: 05/05/23 02:37 Dose: 1,000 mg Al Hydrox/Mg Hydrox/Simethicone (Aluminum/Magnesium Susp 30 Ml Udc) 15 ml PO Q4H PRN PRN Reason: Dyspepsia Stop: 05/25/23 12:48 Last Admin: 05/04/23 18:21 Dose: 15 ml Aspirin (Aspirin 81 Mg Ectab) [facility] Stop: 05/25/23 12:48 Last Admin: 05/04/23 08:37 Dose: 81 mg Calcium/Vitamin D (Calcium 600mg + Vit D 400 Iu Tab) 1 tab PO Q12 DONNA Stop: 05/25/23 12:48 Last Admin: 05/04/23 20:24 Dose: 1 tab Cyanocobalamin (Cyanocobalamin (B-12) 500 Mcg Tablet) 2,000 mcg PO QAM [facility] Stop: 05/25/23 12:48 Last Admin: 05/04/23 08:37 Dose: 2,000 mcg Empagliflozin (Empagliflozin 10 Mg Tab) 10 mg PO DAILY [facility] Stop: 05/25/23 12:48 Last Admin: 05/03/23 09:22 Dose: 10 mg Ferrous Sulfate (Ferrous Sulfate 325 Mg Tab) 325 mg PO Q2D@0900 [facility] Stop: 05/25/23 12:48 Last Admin: 05/01/23 08:44 Dose: 325 mg Fluticasone Propionate (Fluticasone Propionate Na Spr 16 Gm Btl) 2 sprays NA HS [facility] Stop: 05/25/23 20:59 Last Admin: 05/04/23 20:23 Dose: 2 sprays Furosemide (Furosemide 40 Mg/4 Ml Vial) 40 mg IV TID@0800,1200,1700 [facility] Stop: 05/30/23 08:59 Last Admin: 05/01/23 18:46 Dose: Not Given Furosemide (Furosemide 40 Mg Tab) 40 mg PO BID17 [facility] Stop: 06/03/23 18:14 Last Admin: 05/04/23 18:14 Dose: 40 mg Gabapentin (Gabapentin 300 Mg Cap) 300 mg PO HS [facility] Stop: 05/25/23 20:59 Last Admin: 05/04/23 20:23 Dose: 300 mg Heparin Sodium (Porcine) (Heparin Sod 5,000 Unit/0.5 Ml Vial) 5,000 units SQ Q8 [facility] Stop: 05/25/23 13:59 Last Admin: 04/30/23 13:35 Dose: 5,000 units Levothyroxine Sodium (Levothyroxine Sodium 75 Mcg Tablet) 75 mcg PO DAILYBB [facility] Stop: 05/25/23 12:48 Last Admin: 05/05/23 05:46 Dose: 75 mcg Magnesium Hydroxide (Magnesium Hydroxide Susp 30 Ml Udc) 30 ml PO Q12H PRN PRN Reason: Constipation Stop: 05/25/23 12:48 Last Admin: 05/02/23 20:48 Dose: 30 ml Magnesium Oxide (Magnesium Oxide 400 Mg Tab) 400 mg PO QAM [facility] Stop: 05/25/23 12:48 Last Admin: 05/04/23 08:37 Dose: 400 mg Metoprolol Tartrate (Metoprolol Tartrate 25 Mg Tab) 25 mg PO BID [facility] Stop: 06/03/23 20:59 Last Admin: 05/04/23 18:13 Dose: 25 mg Nitroglycerin (Nitroglycerin Sl 0.4 Mg/Tab Tab) 0.4 mg SL Q5M PRN PRN Reason: Chest Pain Stop: 05/25/23 12:48 Olanzapine (Olanzapine 10 Mg/2.1 Ml Sdv) 2.5 mg IM Q4H PRN PRN Reason: Agitation Stop: 06/03/23 22:11 Polyethylene Glycol (Polyethylene (Miralax) 17 Gm Pack) 17 gm PO DAILY PRN PRN Reason: Constipation Stop: 12/23/23 12:48 Last Admin: 05/02/23 05:29 Dose: 17 gm Senna/Docusate Sodium (Docusate Sodium/Senna 50/8.6mg Tab) 1 tab PO BID [facility] Stop: 06/01/23 06:34 Last Admin: 05/04/23 20:24 Dose: 1 tab Spironolactone (Spironolactone 12.5 Mg Tab) 12.5 mg PO QAM DONNA Stop: 05/31/23 08:59 Last Admin: 05/01/23 09:42 Dose: 12.5 mg Tramadol HCl (Tramadol Hcl 50 Mg Tablet) 50 mg PO Q4H PRN PRN Reason: Severe Pain (Scale 7, 8, 9,10) Stop: 06/02/23 11:20 Last Admin: 05/04/23 11:54 Dose: 50 mg (2) Pulmonary embolism Acute cor pulmonale presence: unspecified Chronicity: unspecified Pulmonary embolism type: unspecified Qualified Code(s): I26.99 - Other pulmonary embolism without acute cor pulmonale (3) Atrial fibrillation Atrial fibrillation type: persistent (not longstanding) Qualified Code(s): I48.19 - Other persistent atrial fibrillation (8) Hypertension Hypertension type: unspecified Qualified Code(s): I10 - Essential (primary) hypertension
[2023-05-05] MEDS: CYANOCOBALAMIN (B-12) 500 MCG TABLET PO SCH (09:46)
[2023-05-05] MEDS: ASPIRIN 81 MG ECTAB PO SCH (09:46)
[2023-05-05] MEDS: CALCIUM 600MG + VIT D 400 IU TAB PO SCH ×2 (09:46→20:11)
[2023-05-05] MEDS: DOCUSATE SODIUM/SENNA 50/8.6MG TAB PO SCH ×2 (09:46→20:11)
[2023-05-05] MEDS: FUROSEMIDE 40 MG TAB PO SCH ×2 (09:47→17:16)
[2023-05-05] MEDS: MAGNESIUM OXIDE 400 MG TAB PO SCH (09:47)
[2023-05-05] MEDS: METOPROLOL TARTRATE 25 MG TAB PO SCH ×2 (10:21→20:12)
--- NOTE | 2023-05-05 13:13 | Electrocardiogram Report ---
Test Reason : Blood Pressure : / mmHG Vent. Rate : 112 BPM Atrial Rate : 308 BPM P-R Int : 000 ms QRS Dur : 072 ms QT Int : 308 ms P-R-T Axes : 000 -35 256 degrees QTc Int : 420 ms Atrial flutter with variable A-V block Left axis deviation Anterior infarct (cited on or before 25-APR-2023) Abnormal ECG When compared with ECG of 25-APR-2023 06:30, Atrial flutter has replaced Atrial fibrillation Nonspecific T wave abnormality, improved in Anterior leads Confirmed by Dontae Barnard ([id number]) on 05/05/2023 1:13:45 PM Referred By: [facility] Confirmed By:Dontae Barnard
[2023-05-05] MEDS: GABAPENTIN 300 MG CAP PO SCH (20:11)
[2023-05-05] MEDS: FLUTICASONE PROPIONATE NA SPR 16 GM BTL SCH (20:12)
[2023-05-06] MEDS: ACETAMINOPHEN 500 MG TAB PO SCH ×3 (01:12→17:10)
[2023-05-06] MEDS: LEVOTHYROXINE SODIUM 75 MCG TABLET PO SCH (05:38)
[2023-05-06] MEDS: traMADol HCL 50 MG TABLET PO PRN ×2 (06:03→22:48)
[2023-05-06 08:06] LABS: BUN Creatinine Ratio 31.3 (10-20); Calcium 8.8 mg/dl (8.6-10.3); Est GFR (African American) 42.6 ml/min; Est GFR (Non-African American) 36.8 ml/min
[2023-05-06] MEDS: FUROSEMIDE 40 MG TAB PO SCH (08:44)
[2023-05-06] MEDS: CALCIUM 600MG + VIT D 400 IU TAB PO SCH (08:45)
[2023-05-06] MEDS: CYANOCOBALAMIN (B-12) 500 MCG TABLET PO SCH (08:45)
[2023-05-06] MEDS: ASPIRIN 81 MG ECTAB PO SCH (08:45)
[2023-05-06] MEDS: METOPROLOL TARTRATE 25 MG TAB PO SCH ×2 (08:45→20:32)
[2023-05-06] MEDS: MAGNESIUM OXIDE 400 MG TAB PO SCH (08:45)
[2023-05-06] MEDS: DOCUSATE SODIUM/SENNA 50/8.6MG TAB PO SCH ×2 (08:46→20:32)
--- NOTE | 2023-05-06 09:01 | Hospitalist Progress Note ---
Date of Service May 06, 2023 Assessment & Plan (1) Acute heart failure with preserved ejection fraction (HFpEF): Plan: appears compensated, although there were limitations with giving additional lasix given her hypotension and dehydration. Thoracentesis declined by patient repeatedly. There have been challenges restarting ral LAsix with rising creatinine and hypotension. She is not moving around which would help her mobilize fluid. I am uncertain of the limitations there, but feel rehab may be helpful for her. Will continue to titrate oral lasix as tolerated, however, with her oxygen status remaining stable, I feel this would be appropriately done as outpatient. She is meeting with palliative care today to discuss the option of Hospice. It is unclear for her daughter what she wants at this point, and what is realistic. She is certainly very frail. Will start the conversation with palliative today and go from there. Will repeat CXR today to monitor the effusions. (2) Pulmonary embolism: Plan: Ongoing hypoxia related to acute HFpEF and acute subsegmental PE with pulmonary edema and bilateral pleural effusions. CXR-moderate left and small right-sided pleural effusion and pulmonary edema CTA chest revealed a small subsegmental PE in right upper lobe. Venous duplex did not show any DVT Hospitalist discussed with patient's daughter over the phone on April 26, 2023 regarding finding concerning for subsegmental PE in right upper lobe. 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 She was on Coumadin prior to that. Patient's daughter agreed that if bilateral venous duplex is negative; no plans on systemic anticoagulation given the small subsegmental PE noted in the CTA chest. Discussion was done that there is future risks of strokes and further PE. For now, risk of the anticoagulation outweigh the benefit. SCDs for DVT prophylaxis given level of frailty and risk of bleeding. (3) Atrial fibrillation: Plan: HR better controlled on the 25mg BID dosing of metoprolol. Cont this now. No anticoagulation given history of spontaneous intra-abdominal bleeding and traumatic ICH bleeding in the past. Continues on metoprolol tartrate as tolerated, Jardiance and spironolactone were held given patient appears somewhat volume down and persistently alkalotic. Labs are better after IVF given, however, would hold until she proves more stability. Also with mild persistent hyperkalemia that is also improved with rehydration. (4) Metabolic alkalosis: Plan: resolved (5) Delirium: Plan: Intermittent, cont to reorient as able. (6) History of pacemaker: (7) Hypothyroidism: Plan: chronic, stable, cont levothyroxine per home regimen. (8) Hypertension: Plan: chronic, low normal. Cont current therapy. (9) Chronic kidney disease, stage 3a: Plan: chronic, stable. Creat at baseline/improved. BMP in am after restarting lasix. (10) Weakness: Plan: worsened by prolonged hospital stay. Encouraged her to mobilize OOB with assistance. SNF recommended. She also now has an area of skin breakdown over a spinal bony prominence consistent with a pressure ulcer. Offloading of this as much as possible is recommended. bus and sys integration senior manager requested to evaluate. She is not ambulating out of bed per discussion with RN. DVT proph-heparin avoided given ongoing hme aspirin and h/o spontaneous bleeding in the past. Cont SCDs/ambulation as tolerated. DNR/DNI Dispo-to floor. Given she is not getting out of bed may need to consider SNF for rehab. She will need to move around more in order to mobilize the fluid in her lungs. High risk of readmission. Palliative discussion today. Judith White DO [facility] Hospitalist Admission and Anticipated Discharge Date Admission Date: April 25, 2023 Subjective 87 yo F admitted with acute heart failure. reports pain in her feet that is "burning from neuropathy" back pain also present but she declines further tramadol she reports no appetite, then later that she is nauseous. Noted hypoglycemia on labwork, also worsening creatinine. Eyes are closed today and she appears fatigued and not interested in a conversation. Physical Exam Physical Exam: CONSTITUTIONAL: elderly, frail, vitals as above, appears frail, fatigued, chronically ill appearing. EYES: normal conjunctivae, no scleral icterus ENT: external ear and nose normal NECK: trachea midline RESPIRATORY: clear to auscultation bilaterally, diminished breath sounds throughout with exam -improved aeration in lungs, frailty, no crackles, rales or wheezes, normal respiratory effort CARDIOVASCULAR: regular rate and rhythm, S1 and 2 heard without murmurs, gallops or rubs, no JVD CHEST: +pacemaker to left anterior chest wall GASTROINTESTINAL: normal bowel sounds, soft, nontender, slightly protuberant but not distended MUSCULOSKELETAL: moves all extremities symmetrically, generalized weakness SKIN: warm and dry NEUROLOGIC: CN 2-12 grossly intact, no sensory deficit, normal cognition, normal speech, no tremor PSYCHIATRIC: not very cooperative with interview or exam today as she appears defeated ("I'm too far gone") and fatigued. Results & Data Results & Data Vital Signs (Past 12 Hours) Vital Signs Temp Pulse Resp BP Pulse Ox O2 Del Method O2 Flow Rate 05/06/23 08:53 Nasal Cannula 2 05/06/23 07:35 36.3 C L 75 18 101/64 97 Nasal Cannula [address] [facility] 05/06/23 07:01 Sodium 128 L Potassium 5.0 Chloride 91 L Carbon Dioxide 31 BUN 41 H Creatinine 1.31 H Glucose 74 Calcium 8.8 Medications Administered Current Inpatient Medications Acetaminophen (Acetaminophen 500 Mg Tab) 1,000 mg PO Q8H DONNA Stop: 06/03/23 17:59 Last Admin: 05/06/23 01:12 Dose: 1,000 mg Al Hydrox/Mg Hydrox/Simethicone (Aluminum/Magnesium Susp 30 Ml Udc) 15 ml PO Q4H PRN PRN Reason: Dyspepsia Stop: 05/25/23 12:48 Last Admin: 05/04/23 18:21 Dose: 15 ml Aspirin (Aspirin 81 Mg Ectab) 81 mg PO QAM [facility] Stop: 05/25/23 12:48 Last Admin: 05/06/23 08:45 Dose: 81 mg Calcium/Vitamin D (Calcium 600mg + Vit D 400 Iu Tab) 1 tab PO Q12 DONNA Stop: 05/25/23 12:48 Last Admin: 05/06/23 08:45 Dose: 1 tab Cyanocobalamin (Cyanocobalamin (B-12) 500 Mcg Tablet) 2,000 mcg PO QAM [facility] Stop: 05/25/23 12:48 Last Admin: 05/06/23 08:45 Dose: 2,000 mcg Empagliflozin (Empagliflozin 10 Mg Tab) 10 mg PO DAILY [facility] Stop: 05/25/23 12:48 Last Admin: 05/03/23 09:22 Dose: 10 mg Ferrous Sulfate (Ferrous Sulfate 325 Mg Tab) 325 mg PO Q2D@0900 DONNA Stop: 05/25/23 12:48 Last Admin: 05/01/23 08:44 Dose: 325 mg Fluticasone Propionate (Fluticasone Propionate Na Spr 16 Gm Btl) 2 sprays NA HS DONNA Stop: 05/25/23 20:59 Last Admin: 05/05/23 20:12 Dose: 2 sprays Furosemide (Furosemide 40 Mg Tab) 40 mg PO BID17 [facility] Stop: 06/03/23 18:14 Last Admin: 05/06/23 08:44 Dose: 40 mg Gabapentin (Gabapentin 300 Mg Cap) 300 mg PO HS [facility] Stop: 05/25/23 20:59 Last Admin: 05/05/23 20:11 Dose: 300 mg Heparin Sodium (Porcine) (Heparin Sod 5,000 Unit/0.5 Ml Vial) 5,000 units SQ Q8 [facility] Stop: 05/25/23 13:59 Last Admin: 04/30/23 13:35 Dose: 5,000 units Levothyroxine Sodium (Levothyroxine Sodium 75 Mcg Tablet) 75 mcg PO DAILYBB [facility] Stop: 05/25/23 12:48 Last Admin: 05/06/23 05:38 Dose: 75 mcg Magnesium Hydroxide (Magnesium Hydroxide Susp 30 Ml Udc) 30 ml PO Q12H PRN PRN Reason: Constipation Stop: 05/25/23 12:48 Last Admin: 05/02/23 20:48 Dose: 30 ml Magnesium Oxide (Magnesium Oxide 400 Mg Tab) 400 mg PO QAM [facility] Stop: 05/25/23 12:48 Last Admin: 05/06/23 08:45 Dose: 400 mg Metoprolol Tartrate (Metoprolol Tartrate 25 Mg Tab) 25 mg PO BID [facility] Stop: 06/03/23 20:59 Last Admin: 05/06/23 08:45 Dose: 25 mg Nitroglycerin (Nitroglycerin Sl 0.4 Mg/Tab Tab) 0.4 mg SL Q5M PRN PRN Reason: Chest Pain Stop: 05/25/23 12:48 Polyethylene Glycol (Polyethylene (Miralax) 17 Gm Pack) 17 gm PO DAILY PRN PRN Reason: Constipation Stop: 05/25/23 12:48 Last Admin: 05/02/23 05:29 Dose: 17 gm Senna/Docusate Sodium (Docusate Sodium/Senna 50/8.6mg Tab) 1 tab PO BID [facility] Stop: 06/01/23 06:34 Last Admin: 05/06/23 08:46 Dose: 1 tab Spironolactone (Spironolactone 12.5 Mg Tab) 12.5 mg PO QAM [facility] Stop: 05/31/23 08:59 Last Admin: 05/01/23 09:42 Dose: 12.5 mg Tramadol HCl (Tramadol Hcl 50 Mg Tablet) 50 mg PO Q4H PRN PRN Reason: Severe Pain (Scale 7, 8, 9,10) Stop: 06/02/23 11:20 Last Admin: 05/06/23 06:03 Dose: 50 mg (2) Pulmonary embolism Acute cor pulmonale presence: unspecified Chronicity: unspecified Pulmonary embolism type: unspecified Qualified Code(s): I26.99 - Other pulmonary embolism without acute cor pulmonale (3) Atrial fibrillation Atrial fibrillation type: persistent (not longstanding) Qualified Code(s): I48.19 - Other persistent atrial fibrillation (8) Hypertension Hypertension type: unspecified Qualified Code(s): I10 - Essential (primary) hypertension
--- NOTE | 2023-05-06 10:38 | Palliative Care Consultation ---
Date of Consultation May 06, 2023 Assessment & Plan (1) Dyspnea and respiratory abnormalities: (2) Delirium: (3) Weakness generalized: (4) Advanced care planning/counseling discussion: Rather roundabout discussion was held [id number] with patient about advance care planning at the bedside for approximately 40 minutes. She is unable to clearly elucidate goals other than wanting to return home and look after her . She attributes the fluid in her lungs to be why she does not feel well. She feels that everything will be corrected if that fluid would be treated. She does not recall prior conversations with regards to the progression of her heart failure. When I attempted to discuss her heart failure with her she advised me that that is not a problem it is just the fluid in the lung that needs to be addressed. We reviewed that there is potential that that procedure may not offer sustainable or meaningful benefit. May also easily reaccumulate and this could be an indication of the chronic progression of end- stage heart failure. Attempted to discuss with patient what she would want to focus on if it was felt that her time may be running short and that her heart failure was nearing a more terminal state. She continued to state that she needed to look after her . She was not able to focus on the conversation and I am unclear if she truly understood the extent of what we were trying to discuss. There is an element of delirium that is evident today although how muc h of this may also be involving some underlying cognitive or age-related cognitive decline/? Dementia is unclear. (5) Palliative care by specialist: Met with pt/family. Provided overview of Palliative Medicine, a subspecialty that provides specialized medical care for people living with a serious illness by offering a focus on quality of life. Palliative Medicine is often conflated with hospice: I advised patient/family that Palliative and hospice can be partners but we are not the same. It is important to understand the difference so that we may be informed, and not afraid. Palliative Medicine works to improve QOL through reduction of symptom burden/more control over their illness, for both the patient and family. Palliative medicine clinicians are board certified, specially-trained and another member of the patient's medical care team. We often provide an extra layer of support because our care is based on the needs of the patient, not the prognosis; as such, it's appropriate at any age/advancing stage of a serious illness and can be provided along with curative treatment. Palliative Medicine clinicians are also trained in advanced communication methodologies, to facilitate complex discussions about advanced illness planning, which are needed to help assure that the treatment choices match the patient's goals, aka delivering Goal Concordant care. Finally, we discussed that hospice is a visiting nurse service that focuses on care delivered at the very end of life for patients with terminal illness, with life expectancy less than 6 month. (6) Decompensated heart failure: (7) Atrial fibrillation: Atrial fibrillation type: persistent (not longstanding) Qualified Code(s): I48.19 - Other persistent atrial fibrillation (8) Pulmonary embolism: Acute cor pulmonale presence: unspecified Chronicity: unspecified Pulmonary embolism type: unspecified Qualified Code(s): I26.99 - Other pulmonary embolism without acute cor pulmonale Plan * Patient is inconsistent with her wishes with regards to be desiring a thoracentesis to address her pleural effusion. She initially tells me she does not want any aggressive procedures and wants to return home then tells me that her family wants her to have a procedure so she needs to have it because then she believes she would be able to return home. She continues to express concerns about her and states "he has dementia, I have to get home for him, he is prior by now I do not even know it." * Suspect that she is worsening and delirium and likely has underlying cognitive decline. There is no formal prior neurocognitive testing on file. She is not able to participate in a MoCA assessment today. * Ongoing conversations with family are likely going to be warranted. There have been disagreements between her wishes as expressed to providers versus her family's wishes versus what she acquiesces to when her family is present but then declines to have done when they leave. * consider formal neurocognitive testing vs competency eval Thank you for allowing us to participate in the ongoing care of this patient. Please don't hesitate to call or page with any additional concerns. Dr. Marilyn Wallace DNP Director, Palliative Care History of Present Illness Reason for Consultation: hypoxia, HF, pleural eff, cannot diurese or tap Attending Physician: Judith White, DO History of Present Illness Arlene is an 87-year-old female currently with prolonged hospitalization due to struggles with pulmonary edema and bilateral pleural effusion, left greater than right. There is compressive atelectasis on the right. She has been in and out of confusion and delirium states. When she was more clear thinking, she was advising provider she did not wish to have any type of intervention done for the fusion however she had several family members who disagreed with that decision and then when they were at the bedside would agree to the procedure only to reverse her consent when they left. Patient was reevaluated by pulmonary medicine today unfortunately due to her delirium was not able to give consent. The procedure was then discussed with her daughter over the phone who gave verbal consent and interventional radiology was contacted for potential thoracentesis. Arlene has a longstanding history of heart failure with preserved ejection fraction. She has been having more ongoing issues with intolerance to higher doses of Lasix with hypotension and dehydration. She is very immobile. She has a sedentary baseline performance status. She has ongoing hypoxia related to her heart failure and a subsegmental PE with pulmonary edema in the bilateral pleural effusions. Chest x-ray demonstrated moderate left and small right pleural effusion notes edema. CTA of the chest revealed a small segmental PE in the right upper lobe. Her venous duplex did not demonstrate a DVT. She has a history of prior spontaneous intra-abdominal bleeding and traumatic intracranial hemorrhage in 2017 2018. Because of these reasons systemic anticoagulation was withheld. Active medical issues continue to be metabolic alkalosis, delirium, and declining performance status. Past medical history includes chronic heart failure, hypothyroid, history of pacemaker, hypertension, CKD stage III, generalized weakness, declining perfor priscilla status, medical frailty, atrial fibrillation, hypoxic respiratory failure. 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 At the time of my evaluation, patient is lying in bed, semireclined, alert but somewhat with the and quickly drifts off. She tells me that she wants to go home and that she is willing to do what ever it takes to "get out of this place and go home. She then states "for all I know, my is by now. He has dementia. I have been gone from home too long and I do not even know what is happening with him." She has not been able to participate with therapy. As a result, she is now mobilizing fluid. Overall picture is chronic decline, worsening frailty, unlikely transitioning to an end-stage heart failure situation given the inability to safely tolerate diuretic regimen along with declining performance status, malnutrition, worsening weakness. Allergies Allergy/AdvReac Type Severity Reaction Status Date / Time latex Allergy Unknown Unknown Verified 04/25/23 09:27 mirtazapine Allergy Unknown Rash Verified 04/25/23 09:27 lisinopril AdvReac Unknown Cough Verified 04/25/23 09:27 Home Medications Medication Instructions Recorded Confirmed Type magnesium oxide 400 mg (241.3 mg 400 mg PO QAM 05/11/19 04/25/23 History magnesium) tablet (MagOx) calcium carbonate 500 mg-vitamin 1 tab PO Q12H 02/05/20 04/25/23 History D3 10 mcg (400 unit) tablet (Calcium 500 + D) polyethylene glycol 3350 17 17 g PO DAILY PRN Constipation 02/05/20 04/25/23 History gram/dose oral powder lidocaine HCl 4 % topical cream 1 applic topical HS PRN Pain 05/18/20 04/25/23 History (Aspercreme (lidocaine HCl)) aspirin 81 mg tablet,delayed 81 mg PO QAM 07/21/20 04/25/23 History release cyanocobalamin (vitamin B-12) 2,000 mcg PO QAM 07/21/20 04/25/23 History 1,000 mcg tablet (Vitamin B-12) ferrous sulfate 325 mg (65 mg 325 mg PO Q OTHER DAY 01/03/21 04/25/23 History iron) tablet oxymetazoline 0.05 % nasal spray 2 spray intranasal UD PRN nose 01/03/21 04/25/23 History (Afrin (oxymetazoline)) bleeds fluticasone propionate 50 2 spray intranasal HS 10/02/22 04/25/23 History mcg/actuation nasal spray,suspension gabapentin 300 mg capsule 300 mg PO HS 10/02/22 04/25/23 History levothyroxine 75 mcg tablet 75 mcg PO QAM 10/02/22 04/25/23 History lidocaine 5 % topical patch 1 patch topical DAILY PRN Pain 10/02/22 04/25/23 History sennosides 8.6 mg-docusate sodium 1 tab-cap PO BID PRN Constipation 10/02/22 1 06/25/22 History 50 mg tablet (Senokot-S) furosemide 40 mg tablet 40 mg PO BID #60 tabs 10/05/22 04/25/23 Rx acetaminophen 650 mg 650 mg PO TID pain 04/25/23 04/25/23 History tablet,extended release empagliflozin 10 mg tablet 10 mg PO DAILY 04/25/23 04/25/23 History (Jardiance) metoprolol tartrate 25 mg tablet 12.5 mg PO BID 04/25/23 04/25/23 History spironolactone 25 mg tablet 25 mg PO QAM 04/25/23 04/25/23 History Patient History Medical History (Updated 05/07/23 @ 10:26 by Marilyn Wallace, MASHA) Dyspnea and respiratory abnormalities Atrial fibrillation Diastolic heart failure with preserved ejection fraction Acute heart failure with preserved ejection fraction (HFpEF) Decompensated heart failure UTI (urinary tract infection) Metabolic encephalopathy COVID-19 Fracture of neck of scapula TIA (transient ischemic attack) Possible in December 08, 2019 TIA 05/2019 per records. Last seen by neuro= 01/08/20- follow up PRN. Continue ASA. Constipation Anxiety Osteoarthritis Hyperlipidemia Persistent atrial fibrillation Stroke Chronic hyponatremia Sick sinus syndrome S/p pacemaker Hypomagnesemia Atrial fibrillation No AC secondary to history of bleeding issues (traumatic brain hemorrhage/intra- abdominal hemorrhage) Hypothyroidism HTN (hypertension) Surgical History History of pacemaker H/O colonoscopy Family History Other Cancer Social History Smoking Status: Never smoker Second Hand Exposure: No; Hx Alcohol Use: No Hx Substance Use: No Preferred Language: Wallisian Communication Ability: Effective Communication Ability Comment: prior to today Mysql Dba Required: No Beliefs That Will Affect Care: None marital status: Current Living Situation: Personal Care Facility Current Living Situation Comment: [facility] with who has dementia current occupational status: retired Feels Safe at Home: Yes Safety Concerns: Feels Safe At This Time Assistive Devices: Walker and Wheelchair Review of Systems Review of Systems: All systems reviewed & are unremarkable except as noted in Subjective and Unobtainable due to cognitive status Physical Exam Physical Exam: Frail thin appearing female, appears her age, tired. She is alert with intermittent periods of confusion, with D and drifts off but easily reoriented. She has trouble focusing on the conversation for any prolonged period of time. There is bitemporal wasting noted. Pupils are equal and reactive, extraocular movements are intact. Neck is supple, there is no gross JVD noted. There is no stridor. There is no thyromegaly. Lungs are diminished bilaterally but left more so than right, there are few faint crackles bilaterally Heart tones are irregularly irregular, there is a systolic murmur grade 1-2 Abdomen is scaphoid, nontender to palpation, bowel sounds present Generalized weakness, extremities are thin, there is significant muscle deconditioning, Skin is pale, cool, no gross cyanosis. Scattered ecchymoses noted. Unable to follow commands due to generalized weakness and intermittent confusion/delirium. No prior neurocognitive testing on file. Results & Data Vital Signs (Past 12 Hours) Vital Signs Temp Pulse Resp BP Pulse Ox O2 Del Method O2 Flow Rate 05/06/23 08:53 Nasal Cannula 2 05/06/23 07:35 36.3 C L 75 18 101/64 97 Nasal Cannula 2 Laboratory Results Data reviewed, see HPI PG Care Time/CCT Total # of Minutes Spent Total Time Spent: 130 Total Time Spent with Patient: Total time spent is greater than 50% in coordination of care (as documented) at patient's floor/unit and/or counseling patient: I spent 130 minutes overall addressing this case: 25 min in medical data review/discussion with referring provider(s) and/or preparation for the visit 35 min in direct interaction with the patient/exam 45 min in Advance Care Planning/Goals of Care discussions as detailed above in note (must be >16min) 10 min in subsequent review and synthesis of assessment and plan 15 min communicating with other providers regarding the patient's case: primary team, nursing Prolonged Care Time Prolonged Care Time: Yes Advanced Care Planning 05353 Advanced Care Planning 30 Min 81416 Advanced Care Planning Additional 30 [place] [address] IN/OBS CONSULT LVL 5,80M Patient Type New History Comprehensive Exam Comprehensive Medical Decision Making High Complexity Diagnoses Dyspnea and respiratory abnormalities R06.00; R06.89 Delirium R41.0 Weakness generalized R53.1 Advanced care planning/counseling discussion Z71.89 Palliative care by specialist Z51.5 Decompensated heart failure I50.9 Persistent atrial fibrillation I48.19 Atrial fibrillation type: persistent (not longstanding) Pulmonary embolism I26.99 Acute cor pulmonale presence: unspecified Chronicity: unspecified Pulmonary embolism type: unspecified Additional Codes Advanced Care Planning - 07153 Advanced Care Planning 30 Min: 47571 Advanced Care Planning 30 Min ([id number]) Advanced Care Planning - 37080 Advanced Care Planning Additional 30 Min: 93908 Advanced Care Planning Additional 30 Min ([id number]) Prolonged Care Time - Prolonged Care Time: Yes ([id number])
[2023-05-06] MEDS ORDERED: GABAPENTIN 300 MG CAP PO ONE (12:13)
[2023-05-06] MEDS ORDERED: PROMETHAZINE HCL 6.25 MG in SODIUM CHLORIDE 0.9% 50 ML IV STA (12:13)
[2023-05-06] MEDS: MICONAZOLE NITRATE POWDER 85 GM EXT SCH ×2 (13:56→20:33)
--- NOTE | 2023-05-06 17:24 | XRay Report ---
XR chest 1V portable CLINICAL HISTORY: re-evaluate pleural effusions TECHNIQUE: Single frontal radiograph of the chest was obtained. Comparison: Comparison is made to chest radiograph 05/02/2023 FINDINGS: An implanted pacemaker is seen. Cardiomegaly is noted. Moderate left and small right pleural effusion s are again seen. Zully B lines and prominence of pulmonary vasculature is seen. IMPRESSION: Moderate left and small right pleural effusions, stable to minimally enlarged from prior exam. Cardio megaly with moderate pulmonary edema. ACT 112: Negative or not required by law. Electronically signed by: Clovis Ann M.D. 05/06/2023 5:22 PM
[2023-05-06] MEDS: FLUTICASONE PROPIONATE NA SPR 16 GM BTL SCH (20:32)
[2023-05-06] MEDS: GABAPENTIN 300 MG CAP PO SCH (20:32)
[2023-05-07] MEDS: ACETAMINOPHEN 500 MG TAB PO SCH ×4 (01:52→17:31)
[2023-05-07] MEDS: LEVOTHYROXINE SODIUM 75 MCG TABLET PO SCH (05:19)
[2023-05-07 07:31] LABS: BUN Creatinine Ratio 34.3 (10-20); Calcium 8.9 mg/dl (8.6-10.3); Est GFR (African American) 59.8 ml/min; Est GFR (Non-African American) 51.6 ml/min; Magnesium 3.1 mg/dl (1.7-2.4); Phosphorus 2.5 mg/dl (2.5-4.9); Potassium 4.8 mmol/L (3.5-5.1)
--- NOTE | 2023-05-07 08:22 | Hospitalist Progress Note ---
Date of Service May 07, 2023 Assessment & Plan (1) Acute heart failure with preserved ejection fraction (HFpEF): Plan: appears compensated, although there were limitations with giving additional lasix given her hypotension and dehydration. Thoracentesis declined by patient repeatedly. There have been challenges restarting ral LAsix with rising creatinine and hypotension. She is not moving around which would help her mobilize fluid. I am uncertain of the limitations there, but feel rehab may be helpful for her. Will continue to titrate oral lasix as tolerated, however, with her oxygen status remaining stable, I feel this would be appropriately done as outpatient. She met with palliative care today to discuss the option of Hospice. Goals of care still unclear. Thoracentesis was performed today and patient is not much improved. She has not moved much at all during the last two weeks in the hospital. I am concerned that she cannot tolerate rehab at this point, unless she can awaken and motivate out of bed. She remains fatigued and weak with intermittent delirium. Cont palliative discussions with patient and family and monitor her clinical progress. Notably, she is a poor candidate for pleurx catheter per career development consultant. (2) Pulmonary embolism: Plan: Ongoing hypoxia related to acute HFpEF and acute subsegmental PE with pulmonary edema and bilateral pleural effusions. CXR-moderate left and small right-sided pleural effusion and pulmonary edema CTA chest revealed a small subsegmental PE in right upper lobe. Venous duplex did not show any DVT Hospitalist discussed with patient's daughter over the phone on April 26, 2023 regarding finding concerning for subsegmental PE in right upper lobe. 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 She was on Coumadin prior to that. Patient's daughter agreed that if bilateral venous duplex is negative; no plans on systemic anticoagulation given the small subsegmental PE noted in the CTA chest. Discussion was done that there is future risks of strokes and further PE. For now, risk of the anticoagulation outweigh the benefit. SCDs for DVT prophylaxis given level of frailty and risk of bleeding. (3) Atrial fibrillation: Plan: HR better controlled on the 25mg BID dosing of metoprolol. Cont this now. No anticoagulation given history of spontaneous intra-abdominal bleeding and traumatic ICH bleeding in the past. Continues on metoprolol tartrate as tolerated, Jardiance and spironolactone were held given patient appears somewhat volume down and persistently alkalotic. Labs are better after IVF given, however, would hold off restarting jardiance/spironolactone until she proves more stability. Also with mild persistent hyperkalemia that is also improved with rehydration. (4) Metabolic alkalosis: Plan: resolved (5) Delirium: Plan: Intermittent, cont to reorient as able. (6) History of pacemaker: (7) Hypothyroidism: Plan: chronic, stable, cont levothyroxine per home regimen. (8) Hypertension: Plan: chronic, low normal. Cont current therapy. (9) Chronic kidney disease, stage 3a: Plan: chronic, stable. Creat at baseline/improved. BMP in am after restarting lasix. (10) Weakness: Plan: worsened by prolonged hospital stay. Encouraged her to mobilize OOB with assistance. SNF recommended. She also now has an area of skin breakdown over a spinal bony prominence consistent with a pressure ulcer. Offloading of this as much as possible is recommended. crutcher helper requested to evaluate. She is not ambulating out of bed per discussion with RN. DVT proph-heparin avoided given ongoing hme aspirin and h/o spontaneous bleeding in the past. Cont SCDs/ambulation as tolerated. DNR/DNI Dispo-to floor. Given she is not getting out of bed may need to consider SNF for rehab. She will need to move around more in order to mobilize the fluid in her lungs. High risk of readmission. [facility] doesn't appear to be fitting for her needs at this time. Continue palliative discussions prior to final disposition. I coordinated care with pulmonology and spent time speaking with daughter at bedside today. I spent a total of 60minutes coordinating, documenting, and providing care for this patient excluding time spent in the performance of separately billed services Judith White DO [facility] Admission and Anticipated Discharge Date Admission Date: April 25, 2023 Subjective 87 yo F admitted with acute heart failure. eyes are closed and she is appearing very fatigued and not conversant today she reports not feeling any better after the thoracentesis and is "ashamed of herself" daughter is present at bedside and assists with history All questions were answered and I reviewed CXR images with her as well as the labwork, explaining some limitations in continuing to diurese her Daughter states she would want to consider taking mom to rehab to "see how she does" with this, and would like to also talk with career development consultant and palliative care provider. Physical Exam Physical Exam: CONSTITUTIONAL: elderly, frail, vitals as above, appears frail, fatigued, chronically ill appearing. EYES: normal conjunctivae, no scleral icterus ENT: external ear and nose normal NECK: trachea midline RESPIRATORY: clear to auscultation bilaterally, diminished breath sounds throughout with exam -improved aeration in lungs, frailty, no crackles, rales or wheezes, normal respiratory effort CARDIOVASCULAR: regular rate and rhythm, S1 and 2 heard without murmurs, gallops or rubs, no JVD CHEST: +pacemaker to left anterior chest wall GASTROINTESTINAL: normal bowel sounds, soft, nontender, slightly protuberant but not distended MUSCULOSKELETAL: moves all extremities symmetrically, generalized weakness SKIN: warm and dry NEUROLOGIC: CN 2-12 grossly intact, no sensory deficit, normal cognition, normal speech, no tremor PSYCHIATRIC: not very cooperative with interview or exam today as she appears defeated ("I'm too far gone") and fatigued. Results & Data Results & Data Vital Signs (Past 12 Hours) Vital Signs Temp Pulse Resp BP Pulse Ox O2 Del Method O2 Flow Rate 05/07/23 08:05 Nasal Cannula 2 05/07/23 07:39 36.4 C L 82 18 104/67 97 Nasal Cannula 2 05/06/23 21:41 Nasal Cannula [address] [facility] 05/07/23 06:24 Sodium 128 L Potassium 4.8 Chloride 92 L Carbon Dioxide 30 BUN 34 H Creatinine 0.99 D Glucose 91 Calcium 8.9 Medications Administered Current Inpatient Medications Acetaminophen (Acetaminophen 500 Mg Tab) 1,000 mg PO Q8H [facility] Stop: 06/03/23 17:59 Last Admin: 05/07/23 01:52 Dose: 1,000 mg Al Hydrox/Mg Hydrox/Simethicone (Aluminum/Magnesium Susp 30 Ml Udc) 15 ml PO Q4H PRN PRN Reason: Dyspepsia Stop: 05/25/23 12:48 Last Admin: 05/04/23 18:21 Dose: 15 ml Aspirin (Aspirin 81 Mg Ectab) 81 mg PO QAM [facility] Stop: 05/25/23 12:48 Last Admin: 05/06/23 08:45 Dose: 81 mg Calcium/Vitamin D (Calcium 600mg + Vit D 400 Iu Tab) 1 tab PO Q12 [facility] Stop: 05/25/23 12:48 Last Admin: 05/06/23 08:45 Dose: 1 tab Cyanocobalamin (Cyanocobalamin (B-12) 500 Mcg Tablet) 2,000 mcg PO QAM [facility] Stop: 05/25/23 12:48 Last Admin: 05/06/23 08:45 Dose: 2,000 mcg Empagliflozin (Empagliflozin 10 Mg Tab) 10 mg PO DAILY [facility] Stop: 05/25/23 12:48 Last Admin: 05/03/23 09:22 Dose: 10 mg Ferrous Sulfate (Ferrous Sulfate 325 Mg Tab) 325 mg PO Q2D@0900 [facility] Stop: 05/25/23 12:48 Last Admin: 05/01/23 08:44 Dose: 325 mg Fluticasone Propionate (Fluticasone Propionate Na Spr 16 Gm Btl) 2 sprays NA HS [facility] Stop: 05/25/23 20:59 Last Admin: 05/06/23 20:32 Dose: 2 sprays Furosemide (Furosemide 40 Mg Tab) 40 mg PO BID17 [facility] Stop: 06/03/23 18:14 Last Admin: 05/06/23 08:44 Dose: 40 mg Furosemide (Furosemide 20 Mg Tab) 20 mg PO QAM [facility] Stop: 06/06/23 08:59 Gabapentin (Gabapentin 300 Mg Cap) 300 mg PO HS [facility] Stop: 05/25/23 20:59 Last Admin: 05/06/23 20:32 Dose: 300 mg Heparin Sodium (Porcine) (Heparin Sod 5,000 Unit/0.5 Ml Vial) 5,000 units SQ Q8 [facility] Stop: 05/25/23 13:59 Last Admin: 04/30/23 13:35 Dose: 5,000 units Levothyroxine Sodium (Levothyroxine Sodium 75 Mcg Tablet) 75 mcg PO DAILYBB [facility] Stop: 05/25/23 12:48 Last Admin: 05/07/23 05:19 Dose: 75 mcg Magnesium Hydroxide (Magnesium Hydroxide Susp 30 Ml Udc) 30 ml PO Q12H PRN PRN Reason: Constipation Stop: 05/25/23 12:48 Last Admin: 05/02/23 20:48 Dose: 30 ml Magnesium Oxide (Magnesium Oxide 400 Mg Tab) 400 mg PO QAM [facility] Stop: 05/25/23 12:48 Last Admin: 05/06/23 08:45 Dose: 400 mg Metoprolol Tartrate (Metoprolol Tartrate 25 Mg Tab) 25 mg PO BID [facility] Stop: 06/03/23 20:59 Last Admin: 05/06/23 20:32 Dose: 25 mg Miconazole Nitrate (Miconazole Nitrate Powder 85 Gm) 1 appln EXT TID [facility] Stop: 06/05/23 13:59 Last Admin: 05/06/23 20:33 Dose: 1 appln Nitroglycerin (Nitroglycerin Sl 0.4 Mg/Tab Tab) 0.4 mg SL Q5M PRN PRN Reason: Chest Pain Stop: 05/25/23 12:48 Polyethylene Glycol (Polyethylene (Miralax) 17 Gm Pack) 17 gm PO DAILY PRN PRN Reason: Constipation Stop: 05/25/23 12:48 Last Admin: 05/02/23 05:29 Dose: 17 gm Senna/Docusate Sodium (Docusate Sodium/Senna 50/8.6mg Tab) 1 tab PO BID [facility] Stop: 06/01/23 06:34 Last Admin: 05/06/23 20:32 Dose: 1 tab Spironolactone (Spironolactone 12.5 Mg Tab) 12.5 mg PO QAM [facility] Stop: 05/31/23 08:59 Last Admin: 05/01/23 09:42 Dose: 12.5 mg Tramadol HCl (Tramadol Hcl 50 Mg Tablet) 50 mg PO Q4H PRN PRN Reason: Severe Pain (Scale 7, 8, 9,10) Stop: 06/02/23 11:20 Last Admin: 05/06/23 22:48 Dose: 50 mg (2) Pulmonary embolism Acute cor pulmonale presence: unspecified Chronicity: unspecified Pulmonary embolism type: unspecified Qualified Code(s): I26.99 - Other pulmonary embolism without acute cor pulmonale (3) Atrial fibrillation Atrial fibrillation type: persistent (not longstanding) Qualified Code(s): I48.19 - Other persistent atrial fibrillation (8) Hypertension Hypertension type: unspecified Qualified Code(s): I10 - Essential (primary) hypertension
--- NOTE | 2023-05-07 08:57 | Pulmonology Progress Note ---
Date of Service May 07, 2023 Assessment & Plan (1) CHF (congestive heart failure): Heart failure chronicity: acute on chronic Heart failure type: unspecified Qualified Code(s): I50.9 - Heart failure, unspecified (2) Pleural effusion: Plan 87-year-old female whose had a prolonged hospitalization with ongoing pulmonary edema and bilateral pleural effusions. Left effusion greater than right. I performed a bedside ultrasound today which demonstrated a free-flowing effusion on the left and right. There is associated compressive atelectasis on the right. I discussed the procedure with the patient, but the patient is unable to give consent due to delirium. I also discussed the procedure with the patient's daughter over the phone who is willing to give consent for the procedure. I then spoke with the interventional radiology PA who is willing to review the case and potentially do a thoracentesis with the consent of the patient's daughter who is the healthcare power of bankruptcy attorney. This was discussed with the hospitalist via [place] text. We will send the pleural fluid for cell count, chemistries, cytology and cultures. Thank you for allowing me to participate in care of the patient. Admission and Anticipated Discharge Date Admission Date: April 25, 2023 Subjective Patient seen and examined. Patient is delirious this morning and very weak. History is difficult to obtain given her delirium. I was requested by the hospitalist service to reevaluate the patient due to ongoing hypoxia and moderate to large left pleural effusion. I discussed the procedure with the patient, but she does not seem to be fully grasping the concept of a thoracentesis. I called the patient's daughter who is familiar with the procedure as this has been discussed with her over the past week. She is willing to give consent for the procedure since her mother is unable to give consent at this time. She understands the risks and benefits. Review of Systems Review of Systems: Unobtainable due to cognitive status and Unobtainable due to reduced consciousness Physical Exam Physical Exam: Constitutional: Patient appears to be of their stated age. Patient is in no apparent distress. Patient is well-developed. Eyes: Pupils are equal round and reactive to light. Conjunctivae are normal. Anicteric sclera. Ears nose, mouth and throat: Mallampati class 1. Normal posterior oropharynx. Uvula is midline. Neck: Trachea is midline. Visual inspection is normal. Respiratory: Diminished lung sounds on the left. Crackles noted bilaterally. Cardiovascular: Regular rate and rhythm. No murmurs. No edema. Gastrointestinal: Normal bowel sounds, soft, nontender and nondistended. No hepatosplenomegaly noted. Musculoskeletal: No cyanosis. Patient is able to move all extremities. Strength is 5 out of 5 in the upper and lower extremities. Skin: No rashes, warm dry and intact. Neurologic: No obvious focal neurological deficits seen. Psychiatric: Alert and oriented x3 with a euthymic affect. Results & Data Results & Data Vital Signs (Past 12 Hours) Vital Signs Temp Pulse Resp BP Pulse Ox O2 Del Method O2 Flow Rate 05/07/23 08:05 Nasal Cannula 2 05/07/23 07:39 36.4 C L 82 18 104/67 97 Nasal Cannula 2 05/06/23 21:41 Nasal Cannula 2 PG Care Time/CCT Total # of Minutes Spent Total Time Spent with Patient: Total time spent is greater than 50% in coordination of care (as documented) at patient's floor/unit and/or counseling patient: Coding Level of Care Code 91925 SUB INP/OBS CARE 2/35MIN Diagnoses CHF (congestive heart failure) I50.9 Heart failure chronicity: acute on chronic Heart failure type: unspecified Pleural effusion J90
[2023-05-07] MEDS: ASPIRIN 81 MG ECTAB PO SCH (09:59)
[2023-05-07] MEDS: MICONAZOLE NITRATE POWDER 85 GM EXT SCH ×3 (10:00→20:26)
[2023-05-07] MEDS: MAGNESIUM OXIDE 400 MG TAB PO SCH (10:00)
[2023-05-07] MEDS: DOCUSATE SODIUM/SENNA 50/8.6MG TAB PO SCH ×2 (10:00→20:26)
[2023-05-07] MEDS: FUROSEMIDE 20 MG TAB PO SCH (10:00)
[2023-05-07] MEDS: METOPROLOL TARTRATE 25 MG TAB PO SCH ×2 (10:00→20:25)
--- NOTE | 2023-05-07 11:29 | Ultrasound Report ---
ULTRASOUND-GUIDED LEFT THORACENTESIS CLINICAL HISTORY: Large left pleural effusion. PROCEDURE: Procedure and risks were explained. Informed consent was obtained over the phone from the daughter. A final timeout was completed. The left lateral thorax was prepped and draped in sterile fa shion. 1% buffered lidocaine was utilized for skin anesthesia. Utilizing ultrasound guidance, a 5 Fijian safety centesis catheter was advanced into the left pleural effusion. Ultrasound images were obtained. Approximately 1 L of clear yellow pleural fluid was remov ed and sent to the lab for analysis. The patient did complain of mild chest discomfort and therefore the procedure was stopped. A chest x-ray will be obtained post procedure. Vital signs will be monitor ed on the floor. IMPRESSION: Left thoracentesis as above. Performed, dictated, and signed by Reymundo Keane PA-C; to be co-signed by Dr. Edgar Wen. Electronically signed by: Edgar Wen M.D. 05/07/2023 11:31 AM
--- NOTE | 2023-05-07 11:46 | XRay Report ---
XR chest 1V not portable CLINICAL HISTORY: s/p lt thora TECHNIQUE: Single frontal radiograph of the chest was obtained. Comparison: Comparison is made to chest radiograph 05/06/2023 FINDINGS: An implanted pacemaker is seen. Cardiomegaly is noted. There is prominence and cephalization of the v asculature with Zully B lines seen. Moderate bilateral pleural effusions are seen without evidence o f pneumothorax, the left effusion is decreased in size from prior exam. IMPRESSION: Interval decrease in size of left pleural effusion status post thoracentesis. No evidence of pneumoth orax. ACT 112: Negative or not required by law. Electronically signed by: Clovis Ann M.D. 05/07/2023 11:44 AM
[2023-05-07 12:19] LABS: Total Protein Pleural Fluid 3.5 gm/dl
[2023-05-07 12:37] LABS: Appearance Pleural Fluid Slightly Hazy; Color Pleural Fluid Yellow; RBC Pleural Fluid Auto 2000 /uL; Source Pleural Fluid Left Lung; WBC Pleural Fluid Auto 178 /uL
[2023-05-07 12:46] LABS: Lymphocytes, Fluid 30 %; Mono,Macrophage,Mesothelial 67 %; Neutrophils, Fluid 3 %
[2023-05-07] MEDS: GABAPENTIN 300 MG CAP PO SCH (20:26)
[2023-05-07] MEDS: FLUTICASONE PROPIONATE NA SPR 16 GM BTL SCH (20:27)
[2023-05-07] MEDS ORDERED: SODIUM CHLORIDE 0.9% 500 ML IV ONE (21:21)
[2023-05-08] MEDS: ACETAMINOPHEN 500 MG TAB PO SCH ×3 (02:25→17:51)
[2023-05-08] MEDS: LEVOTHYROXINE SODIUM 75 MCG TABLET PO SCH (05:39)
[2023-05-08] MEDS: traMADol HCL 50 MG TABLET PO PRN (07:38)
[2023-05-08] MEDS: FUROSEMIDE 20 MG TAB PO SCH (08:44)
[2023-05-08] MEDS: ASPIRIN 81 MG ECTAB PO SCH (08:44)
[2023-05-08] MEDS: MAGNESIUM OXIDE 400 MG TAB PO SCH (08:44)
[2023-05-08] MEDS: DOCUSATE SODIUM/SENNA 50/8.6MG TAB PO SCH ×2 (08:44→20:00)
[2023-05-08] MEDS: METOPROLOL TARTRATE 25 MG TAB PO SCH ×2 (08:44→19:58)
[2023-05-08] MEDS: MICONAZOLE NITRATE POWDER 85 GM EXT SCH ×3 (08:44→19:58)
--- NOTE | 2023-05-08 09:34 | Hospitalist Progress Note ---
Date of Service May 08, 2023 Assessment & Plan (1) Acute heart failure with preserved ejection fraction (HFpEF): Plan: appears compensated, although there were limitations with giving additional lasix given her hypotension and dehydration. Thoracentesis declined by patient repeatedly. There have been challenges restarting oral LAsix with rising creatinine and hypotension. She is not moving around which would help her mobilize fluid. I am uncertain of the limitations there, but feel rehab may be helpful for her. Will continue to titrate oral lasix as tolerated, however, with her oxygen status remaining stable, I feel this would be appropriately done as outpatient. She met with palliative care yesterday to discuss the option of Hospice. Goals of care still unclear. Thoracentesis was performed on 05/07 and patient is not much improved. As per previous hospitalist - She has not moved much at all during the last two weeks in the hospital. I am concerned that she cannot tolerate rehab at this point. She remains fatigued and weak with intermittent delirium. Cont palliative discussions with patient and family and monitor her clinical progress. Notably, she is a poor candidate for pleurx catheter per jewelry coater. (2) Pulmonary embolism: Plan: Ongoing hypoxia related to acute HFpEF and acute subsegmental PE with pulmonary edema and bilateral pleural effusions. CXR-moderate left and small right-sided pleural effusion and pulmonary edema CTA chest revealed a small subsegmental PE in right upper lobe. Venous duplex did not show any DVT Hospitalist discussed with patient's daughter over the phone on April 26, 2023 regarding finding concerning for subsegmental PE in right upper lobe. 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 She was on Coumadin prior to that. Patient's daughter agreed that if bilateral venous duplex is negative; no plans on systemic anticoagulation given the small subsegmental PE noted in the CTA chest. Discussion was done that there is future risks of strokes and further PE. For now, risk of the anticoagulation outweigh the benefit. SCDs for DVT prophylaxis given level of frailty and risk of bleeding. ? Peripheral arterial disease Pt with cool R foot and purplish discoloration venous and arterial doppler obtained (05/08/23) No DVT, however arterial doppler abnormal and vascular surgery was contacted and consulted CTA abd pelvis ordered (3) Atrial fibrillation: Plan: HR better controlled on the 25mg BID dosing of metoprolol. Cont this now. No anticoagulation given history of spontaneous intra-abdominal bleeding and traumatic ICH bleeding in the past. Continues on metoprolol tartrate as tolerated, Jardiance and spironolactone were held given patient appears somewhat volume down and persistently alkalotic. Labs are better after IVF given, however, would hold off restarting jardiance/spironolactone until she proves more stability. Also with mild persistent hyperkalemia that is also improved with rehydration. (4) Metabolic alkalosis: Plan: resolved (5) Delirium: Plan: Intermittent, cont to reorient as able. (6) History of pacemaker: (7) Hypothyroidism: Plan: chronic, stable, cont levothyroxine per home regimen. (8) Hypertension: Plan: chronic, low normal. Cont current therapy. (9) Chronic kidney disease, stage 3a: Plan: chronic, stable. Creat at baseline/improved. BMP in am after restarting lasix. (10) Weakness: Plan: worsened by prolonged hospital stay. Encouraged her to mobilize OOB with assistance. SNF recommended. She also now has an area of skin breakdown over a spinal bony prominence consistent with a pressure ulcer. Offloading of this as much as possible is recommended. event management consultant requested to evaluate. She is not ambulating out of bed per discussion with RN. DVT proph-heparin avoided given ongoing home aspirin and h/o spontaneous bleeding in the past. Cont SCDs/ambulation as tolerated. Also per previous noted ppf dose 5,000 Q8h was initially recommended and will resume DNR/DNI Dispo-to floor. Given she is not getting out of bed may need to consider SNF for rehab. She will need to move around more in order to mobilize the fluid in her lungs. High risk of readmission. [facility] doesn't appear to be fitting for her needs at this time. Continue palliative discussions prior to final disposition. Admission and Anticipated Discharge Date Admission Date: April 25, 2023 Subjective 87 yo F admitted with acute heart failure. laying in bed in NAD, says she does not feel well and hurting all over , complains of back ache and feet pain Underwent thoracentesis yesterday, feels that breathing is not improved Pt's right foot is cool and purplish - per RN it's been like that yesterday as well. venous and arterial doppler ordered. Pt can not be on full anticoagulation but per notes review she is supposed to be on heparin 5000 Q8, which was held while ago - most likely d/t planned thoracentesis (pt was reportedly refusing the procedure and changing her mind) Vascular surgery contacted and consulted CTA abd pel ordered Per previous provider- discussed w/ pt's daughter who would want to consider taking mom to rehab to "see how she does" with this, and would like to also talk with jewelry coater and palliative care provider. Review of Systems Review of Systems: All systems reviewed & are unremarkable except as noted in Subjective Physical Exam Physical Exam: CONSTITUTIONAL: elderly, frail, F in NAD EYES: normal conjunctivae, no scleral icterus ENT: external ear and nose normal NECK: supple RESPIRATORY: +bibasilar crackles, normal respiratory effort CARDIOVASCULAR: regular rate and rhythm, S1 and 2 heard without murmurs CHEST: +pacemaker to left anterior chest wall GASTROINTESTINAL: normal bowel sounds, soft, nontender, + protuberant but not distended MUSCULOSKELETAL: moves extremities, generalized weakness, R foot cool and purplish in color, weak pulses SKIN: warm and dry NEURO/ PSYCH: awake and alert, answers simple questions appropriately, normal speech, no tremor Results & Data Results & Data Vital Signs (Past 12 Hours) Vital Signs Temp Pulse Resp BP BP Pulse Ox O2 Del Method 05/08/23 07:22 Nasal Cannula 05/08/23 07:17 90 15 113/84 96 Nasal Cannula 05/08/23 06:59 36.4 C L 97 H 16 101/67 96 Nasal Cannula 05/08/23 03:20 36.5 C 94 H 18 88/65 L 96 Nasal Cannula 05/07/23 22:29 36.7 C 98 H 18 83/56 L 98 Nasal Cannula O2 Flow Rate 05/08/23 07:22 2 05/08/23 07:17 2 05/08/23 06:59 2 05/08/23 03:20 2 05/07/23 22:29 2 Laboratory Results 05/08/23 05/07/23 Range/Units 08:58 22:48 WBC 8.31 (4.8-10.8) K/ul RBC 4.77 (4.20-5.40) M/uL Hgb 15.1 (12.0-16.0) g/dl Hct 46.2 (37.0-47.0) % MCV 96.9 (80.0-100.0) fL MCH 31.7 (25.0-34.0) pg MCHC 32.7 (32.0-36.0) g/dL RDW Std Deviation 64.6 H (36.4-46.3) fL RDW Coeff of Del 18.2 H (11.5-14.5) % Plt Count 256 (130-400) K/uL MPV 9.8 (9.4-12.4) fL Sodium 128 L (136-145) mmol/L Potassium 5.2 H (3.5-5.1) mmol/L Chloride 95 L (98-107) mmol/L Carbon Dioxide 27 (21-32) mmol/L Anion Gap 6 (3-11) BUN 31 H (6-23) mg/dl Creatinine 0.87 (0.6-1.2) mg/dl Est Cr Clr Drug Dosing 37.6 ml/min Est GFR ( Amer) 69.9 ml/min Est GFR (Non-Af Amer) 60.3 ml/min BUN/Creatinine Ratio 35.6 H (10-20) Glucose 154 H (70-99(Fasting)) mg/dl Lactate 1.5 (0.4-2.0) mmol/L Calcium 8.4 L (8.6-10.3) mg/dl Phosphorus 2.5 (2.5-4.9) mg/dl Magnesium 2.8 H (1.7-2.4) mg/dl Medications Administered Current Inpatient Medications Acetaminophen (Acetaminophen 500 Mg Tab) 1,000 mg PO Q8H [facility] Stop: 06/03/23 17:59 Last Admin: 05/08/23 02:25 Dose: Not Given Al Hydrox/Mg Hydrox/Simethicone (Aluminum/Magnesium Susp 30 Ml Udc) 15 ml PO Q4H PRN PRN Reason: Dyspepsia Stop: 05/25/23 12:48 Last Admin: 05/04/23 18:21 Dose: 15 ml Aspirin (Aspirin 81 Mg Ectab) 81 mg PO QAM [facility] Stop: 05/25/23 12:48 Last Admin: 05/08/23 08:44 Dose: Not Given Calcium/Vitamin D (Calcium 600mg + Vit D 400 Iu Tab) 1 tab PO Q12 [facility] Stop: 05/25/23 12:48 Last Admin: 05/06/23 08:45 Dose: 1 tab Cyanocobalamin (Cyanocobalamin (B-12) 500 Mcg Tablet) 2,000 mcg PO QAM [facility] Stop: 05/25/23 12:48 Last Admin: 05/06/23 08:45 Dose: 2,000 mcg Empagliflozin (Empagliflozin 10 Mg Tab) 10 mg PO DAILY [facility] Stop: 05/25/23 12:48 Last Admin: 05/03/23 09:22 Dose: 10 mg Ferrous Sulfate (Ferrous Sulfate 325 Mg Tab) 325 mg PO Q2D@0900 [facility] Stop: 05/25/23 12:48 Last Admin: 05/01/23 08:44 Dose: 325 mg Fluticasone Propionate (Fluticasone Propionate Na Spr 16 Gm Btl) 2 sprays NA HS [facility] Stop: 05/25/23 20:59 Last Admin: 05/07/23 20:27 Dose: 2 sprays Furosemide (Furosemide 40 Mg Tab) 40 mg PO BID17 [facility] Stop: 06/03/23 18:14 Last Admin: 05/06/23 08:44 Dose: 40 mg Furosemide (Furosemide 20 Mg Tab) 20 mg PO QAM [facility] Stop: 06/06/23 08:59 Last Admin: 05/08/23 08:44 Dose: Not Given Gabapentin (Gabapentin 300 Mg Cap) 300 mg PO HS [facility] Stop: 05/25/23 20:59 Last Admin: 05/07/23 20:26 Dose: Not Given Heparin Sodium (Porcine) (Heparin Sod 5,000 Unit/0.5 Ml Vial) 5,000 units SQ Q8 [facility] Stop: 05/25/23 13:59 Last Admin: 04/30/23 13:35 Dose: 5,000 units Levothyroxine Sodium (Levothyroxine Sodium 75 Mcg Tablet) 75 mcg PO DAILYBB [facility] Stop: 05/25/23 12:48 Last Admin: 05/08/23 05:39 Dose: 75 mcg Magnesium Hydroxide (Magnesium Hydroxide Susp 30 Ml Udc) 30 ml PO Q12H PRN PRN Reason: Constipation Stop: 05/25/23 12:48 Last Admin: 05/02/23 20:48 Dose: 30 ml Magnesium Oxide (Magnesium Oxide 400 Mg Tab) 400 mg PO QAM [facility] Stop: 05/25/23 12:48 Last Admin: 05/08/23 08:44 Dose: Not Given Metoprolol Tartrate (Metoprolol Tartrate 25 Mg Tab) 25 mg PO BID [facility] Stop: 06/03/23 20:59 Last Admin: 05/08/23 08:44 Dose: Not Given Miconazole Nitrate (Miconazole Nitrate Powder 85 Gm) 1 appln EXT TID [facility] Stop: 06/05/23 13:59 Last Admin: 05/08/23 08:44 Dose: Not Given Nitroglycerin (Nitroglycerin Sl 0.4 Mg/Tab Tab) 0.4 mg SL Q5M PRN PRN Reason: Chest Pain Stop: 05/25/23 12:48 Polyethylene Glycol (Polyethylene (Miralax) 17 Gm Pack) 17 gm PO DAILY PRN PRN Reason: Constipation Stop: 05/25/23 12:48 Last Admin: 05/02/23 05:29 Dose: 17 gm Senna/Docusate Sodium (Docusate Sodium/Senna 50/8.6mg Tab) 1 tab PO BID [facility] Stop: 06/01/23 06:34 Last Admin: 05/08/23 08:44 Dose: Not Given Spironolactone (Spironolactone 12.5 Mg Tab) 12.5 mg PO QAM [facility] Stop: 05/31/23 08:59 Last Admin: 05/01/23 09:42 Dose: 12.5 mg Tramadol HCl (Tramadol Hcl 50 Mg Tablet) 50 mg PO Q4H PRN PRN Reason: Severe Pain (Scale 7, 8, 9,10) Stop: 06/02/23 11:20 Last Admin: 05/08/23 07:38 Dose: 50 mg (2) Pulmonary embolism Acute cor pulmonale presence: unspecified Chronicity: unspecified Pulmonary embolism type: unspecified Qualified Code(s): I26.99 - Other pulmonary embolism without acute cor pulmonale (3) Atrial fibrillation Atrial fibrillation type: persistent (not longstanding) Qualified Code(s): I48.19 - Other persistent atrial fibrillation (8) Hypertension Hypertension type: unspecified Qualified Code(s): I10 - Essential (primary) hypertension
[2023-05-08 09:36] LABS: Hematocrit (blood only) 46.2 % (37.0-47.0); Hemoglobin 15.1 g/dl (12.0-16.0); Mean Corpuscular Hemoglobin 31.7 pg (25.0-34.0); Mean Corpuscular Hgb Conc 32.7 g/dL (32.0-36.0); Mean Corpuscular Volume 96.9 fL (80.0-100.0); Mean Platelet Volume 9.8 fL (9.4-12.4); Platelet Count 256 K/uL (130-400); RDW Coefficient of Variation 18.2 % (11.5-14.5); RDW Standard Deviation 64.6 fL (36.4-46.3); Red Blood Count 4.77 M/uL (4.20-5.40); White Blood Count 8.31 K/ul (4.8-10.8)
[2023-05-08 10:03] LABS: BUN Creatinine Ratio 35.6 (10-20); Calcium 8.4 mg/dl (8.6-10.3); Creatinine Clr Calc Pharmacy 37.6 ml/min; Est GFR (African American) 69.9 ml/min; Est GFR (Non-African American) 60.3 ml/min; Magnesium 2.8 mg/dl (1.7-2.4); Phosphorus 2.5 mg/dl (2.5-4.9); Potassium 5.2 mmol/L (3.5-5.1)
[2023-05-08] MEDS ORDERED: HEPARIN SOD 5,000 UNIT/0.5 ML VIAL SQ STA (12:35)
--- NOTE | 2023-05-08 14:50 | Ultrasound Report ---
ULTRASOUND RIGHT LOWER EXTREMITY VENOUS CLINICAL HISTORY: Right leg pain. COMPARISON STUDY: Bilateral lower extremity venous ultrasound dated 04/25/2023. TECHNIQUE: Portable real-time, grayscale, and color Doppler sonography of the deep veins of the right lower extremity was performed from the inguinal crease to the calf. Compression and augmentation wer e utilized. FINDINGS: There is no sonographic evidence of deep venous thrombosis identified in the right lower ex tremity. The common femoral, superficial femoral, and popliteal veins are patent and normally sherry sible. The greater saphenous vein and the profunda femoris vein at the junction with the common femor al vein are clear. The visualized calf veins are patent. IMPRESSION: There is no sonographic evidence of deep venous thrombosis identified in the right lower extremity. ACT 112: Negative or not required by law. Electronically signed by: Edgar Wen M.D. 05/08/2023 2:49 PM
--- NOTE | 2023-05-08 15:03 | Ultrasound Report ---
US arterial duplex LE RT CLINICAL HISTORY: r/o arter. compromise TECHNIQUE: Real-time grayscale and color and spectral Doppler ultrasound imaging of the bilateral low er extremity arteries was performed. Measurements calculated based on NASCET criteria. COMPARISON: None available at the time of this dictation. FINDINGS: Low velocities and monophasic waveforms are seen throughout, for example maximal velocity measures 14 mm at the popliteal artery. The calf vessels are not well-visualized. Atherosclerotic calcifications are seen. IMPRESSION: Low velocities and monophasic waveforms are seen compatible with peripheral vascular disease. ACT 112: Negative or not required by law. Electronically signed by: Clovis Ann M.D. 05/08/2023 3:02 PM
[2023-05-08] MEDS ORDERED: OPTIRAY 320 125ml IV ONE (17:45)
[2023-05-08] MEDS: FLUTICASONE PROPIONATE NA SPR 16 GM BTL SCH (19:56)
[2023-05-08] MEDS: GABAPENTIN 300 MG CAP PO SCH (19:57)
--- NOTE | 2023-05-08 20:01 | CT Scan Report ---
CT angiogram of the abdomen, pelvis, bilateral lower extremities CT DOSE: 1503.55 mGy.cm CLINICAL HISTORY: blue leg . Assess for arterial occlusion. Bilateral lower extremity pain. TECHNIQUE: Multiaxial CT images of the abdomen, pelvis, bilateral lower extremities were performed fo llowing the intravenous administration of contrast to evaluate the arterial structures. 3-D/maximum i ntensity projection images in the sagittal and coronal plane were also obtained for the CTA portion o f the examination. A dose lowering technique was utilized adhering to the principles of ALARA. COMPARISON STUDY: Abdomen and pelvis CT 05/02/2023. FINDINGS: A moderate right pleural effusion has increased in size. A moderate left pleural effusions has slightly decreased in size. There is a small left basilar pneumothorax. Interlobular septal thick ening at the lung bases consistent with pulmonary edema. Heterogeneous consolidation within the lower lobes may represent a combination of atelectasis and pneumonia. The heart is enlarged. Pacemaker wir es are noted. No pneumoperitoneum. No pneumatosis. Old, healed distal left fibular fracture. Multiple compression deformities within the thoracic and lumbar spine which are likely subacute to chronic. T he L1 compression deformity demonstrates severe loss of height and 3 mm of retropulsion. The T9 compr ession deformity demonstrates 5 mm of retropulsion with moderate central canal narrowing at this leve l. This remains unchanged. Mild body wall edema. Mild gastric wall thickening. This could be due to u nderdistention. Small amount of ascites is present. The liver, pancreas, spleen, and adrenal glands a re unremarkable. No hydronephrosis. Stable left renal cysts. No retroperitoneal lymphadenopathy. No p elvic lymphadenopathy. The bladder is mildly distended. No bladder wall thickening. The uterus and ad nexa are unremarkable. Slight decrease in size within the large stool ball within the rectum. Moderat e fecal retention is again noted. Colonic diverticulosis. No evidence for acute diverticulitis. No di lated loops of bowel to suggest an obstruction. A 1.5 cm gallstone. No gallbladder wall thickening. T he gallbladder is mildly distended. There is a tortuous abdominal aorta which is normal in caliber. Moderate calcified plaque within the abdominal aorta. There is a filling defect seen at the aortic bifurcation which extends into the bila teral common iliac arteries, right greater than left. This could be due to focal thrombus, an embolus , or possibly a dissection. 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 This also results in focal high-grade stenosis of up to 90% within the proximal left common iliac artery. This is best seen on image 193. No aneurysms identified within the aorta or iliac arteries. The bila teral external iliac and common iliac arteries are widely patent. There is multifocal moderate to sev ere narrowing within the distal right internal iliac artery with a possible focal dissection within t he mid right internal iliac artery on image 245. The left internal iliac artery appears patent. The right femoral arteries are suboptimally assessed due to the motion artifact. However, there is no high-grade stenosis or occlusion within the right superficial femoral artery. There is complete occl usion of the right popliteal artery, right anterior tibial artery, and right posterior tibial artery. There is likely reconstitution of flow within the distal right peroneal artery due to collaterals. The left superficial femoral artery is patent. There is complete occlusion of the left popliteal cosmo ry. The left anterior tibial artery appears to demonstrate reconstitution of flow proximally due to t he collateral vessels. However, the distal left anterior tibial artery is likely occluded. The perone al and posterior tibial arteries proximally appear occluded with likely areas of reconstitution of fl ow within the mid to distal segments due to collateral vessels. However, this is difficult to assess due to the extensive calcified plaque. IMPRESSION: 1. There is a filling defect seen at the aortic bifurcation which extends into the bilateral common i liac arteries, right greater than left. This could be due to focal thrombus, an embolus, or possibly a dissection. This results in near complete occlusion of the entire right common iliac artery with on ly a small amount of contrast seen along the periphery of this suspected thrombus. This also results in focal high-grade stenosis of up to 90% within the proximal left common iliac artery. 2. 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 3. Multifocal areas of occlusion within the bilateral calf arteries as described above. 4. Moderate bilateral pleural effusions. The left pleural effusion has decreased in size. 5. Small left basilar pneumothorax. 6. Cardiomegaly and mild interstitial pulmonary edema. 7. Heterogeneous consolidation within the lung bases which may represent atelectasis/pneumonia. 8. Small amount of ascites 9. Cholelithiasis. 10. Gastric wall thickening which could be due to underdistention. 11. Additional findings as described above. 4. This report was called/faxed to the covering physician following dictation. ACT 112: Negative or not required by law. Electronically signed by: Daquan Ocasio M.D. 05/08/2023 7:58 PM
[2023-05-08] MEDS: ALUMINUM/MAGNESIUM SUSP 30 ML UDC PO PRN (20:11)
[2023-05-08] MEDS ORDERED: Heparin IV Adult Wt-Based Low-Dose *NO* INITIAL Bolus Protocol IV STA (20:57)
[2023-05-08] MEDS ORDERED: SODIUM CHLORIDE 0.9% 500 ML IV SCH (21:00)
[2023-05-08] MEDS ORDERED: HEPARIN SODIUM/DEXTROSE 25,000 UNITS/500 ML BAG IV SCH (21:15)
[2023-05-08 21:41] LABS: Calcium 8.3 mg/dl (8.6-10.3); Magnesium 2.7 mg/dl (1.7-2.4); Potassium 5.2 mmol/L (3.5-5.1)
[2023-05-08] MEDS ORDERED: SODIUM CHLORIDE 0.9% 250 ML IV SCH ×2 (21:45→22:00)
[2023-05-08 21:47] LABS: BUN Creatinine Ratio 37.2 (10-20); Est GFR (African American) 70.9 ml/min; Est GFR (Non-African American) 61.2 ml/min
[2023-05-08 21:59] LABS: Basophils # (auto) 0.01 K/uL (0.00-0.20); Basophils % (auto) 0.1 %; Eosinophils # (auto) 0.01 K/uL (0.00-0.50); Eosinophils % (auto) 0.1 %; Hematocrit (blood only) 45.4 % (37.0-47.0); Hemoglobin 14.7 g/dl (12.0-16.0); Immature Granulocytes # (auto) 0.09 K/uL (0.01-0.20); Immature Granulocytes % (auto) 0.8 %; Lymphocytes # (auto) 0.72 K/uL (1.20-3.40); Lymphocytes % (auto) 6.3 %; Mean Corpuscular Hgb Conc 32.4 g/dL (32.0-36.0); Mean Corpuscular Volume 98.7 fL (80.0-100.0); Mean Platelet Volume 9.6 fL (9.4-12.4); Monocytes # (auto) 1.26 K/uL (0.11-0.59); Neutrophils # (auto) 9.37 K/uL (1.40-6.50); Neutrophils % (auto) 81.7 %; Platelet Count 263 K/uL (130-400); RDW Coefficient of Variation 18.2 % (11.5-14.5); RDW Standard Deviation 66.1 fL (36.4-46.3); White Blood Count 11.46 K/ul (4.8-10.8)
[2023-05-08 22:27] LABS: Partial Thromboplastin Ratio 1.1; Partial Thromboplastin Time 31 Seconds (21-31); Prothrombin Time 11.2 Seconds (9.0-12.0)
--- NOTE | 2023-05-09 00:31 | CT Scan Report ---
Exam(s): CT HEAD Without Contrast EXAM: CT Head Without Intravenous Contrast CLINICAL HISTORY: Reason for exam: headache. hx of brain bleed. TECHNIQUE: Axial computed tomography images of the head/brain without intravenous contrast. CTDI is 39.1 mGy and DLP is 703.85 mGy-cm. Automated exposure control was utilized for the study. A dose lowering technique was utilized adhering to the principles of ALARA. COMPARISON: No relevant prior studies available. FINDINGS: No acute intracranial hemorrhage. No midline shift or mass effect. The territorial shafer-white matter differentiation is maintained throughout. Age-related cerebral volume loss. Periventricular and subcortical white matter hypoattenuation, consistent with chronic microangiopathy. The visualized orbits appear grossly unremarkable. The calvarium is intact. The visualized paranasal sinuses and mastoid air cells are grossly clear. IMPRESSION: No acute intracranial hemorrhage, midline shift, or mass effect. Electronically signed by: Aaron Biggs MD 05/09/23 00:30 AM
[2023-05-09] MEDS: ACETAMINOPHEN 500 MG TAB PO SCH ×3 (04:25→16:34)
[2023-05-09] MEDS: LEVOTHYROXINE SODIUM 75 MCG TABLET PO SCH (05:41)
[2023-05-09 06:50] LABS: Hematocrit (blood only) 44.9 % (37.0-47.0); Hemoglobin 15.1 g/dl (12.0-16.0); Mean Corpuscular Hemoglobin 32.1 pg (25.0-34.0); Mean Corpuscular Hgb Conc 33.6 g/dL (32.0-36.0); Mean Corpuscular Volume 95.3 fL (80.0-100.0); Mean Platelet Volume 9.7 fL (9.4-12.4); Platelet Count 269 K/uL (130-400); RDW Coefficient of Variation 18.3 % (11.5-14.5); RDW Standard Deviation 64.4 fL (36.4-46.3); Red Blood Count 4.71 M/uL (4.20-5.40); White Blood Count 11.57 K/ul (4.8-10.8)
[2023-05-09 06:54] LABS: BUN Creatinine Ratio 32.6 (10-20); Calcium 8.6 mg/dl (8.6-10.3); Creatinine Clr Calc Pharmacy 35.5 ml/min; Est GFR (African American) 65.3 ml/min; Est GFR (Non-African American) 56.4 ml/min; Magnesium 2.7 mg/dl (1.7-2.4); Phosphorus 2.5 mg/dl (2.5-4.9); Potassium 5.7 mmol/L (3.5-5.1)
--- NOTE | 2023-05-09 07:40 | Communication Note ---
Date of Service: May 09, 2023 Discussed CTA abd/pelvis,bilateral lower extremities results with vascular surgery. Mostly thrombus per vascular surgery and recommends surgery but not s ure if the patient is candidate and also iv heparin. Also Emergency surgery if she is in lot of pain. Patient complains of severe leg pain but says its there for some time and also seemed not in excruciating pain. Daughter said no for surgery. Daughter is ok for iv heparin for short term only as she has history of brain and stomach bleeds in the past.. Was in rapid a fib so transferred to tele. BP soft gave 250cc fluid bolus. But on tele her Heart rates are ok. Patient complained of headache. Did ct head prior to iv heparin and ct head was ok.
[2023-05-09 07:47] LABS: ANTI-Xa, UFH(UnfractionatedHep 0.43 IU/ml (0.3-0.7)
[2023-05-09] MEDS: traMADol HCL 50 MG TABLET PO PRN (08:02)
[2023-05-09] MEDS: MAGNESIUM OXIDE 400 MG TAB PO SCH (08:08)
[2023-05-09] MEDS: METOPROLOL TARTRATE 25 MG TAB PO SCH ×2 (08:09→21:44)
[2023-05-09] MEDS: ASPIRIN 81 MG ECTAB PO SCH (08:09)
--- NOTE | 2023-05-09 08:39 | Hospitalist Progress Note ---
Date of Service May 09, 2023 Assessment & Plan (1) Acute heart failure with preserved ejection fraction (HFpEF): Plan: appears compensated, although there were limitations with giving additional lasix given her hypotension and dehydration. Thoracentesis declined by patient repeatedly. There have been challenges restarting oral LAsix with rising creatinine and hypotension. She is not moving around which would help her mobilize fluid. I am uncertain of the limitations there, but feel rehab may be helpful for her. Will continue to titrate oral lasix as tolerated, however, with her oxygen status remaining stable, I feel this would be appropriately done as outpatient. She met with palliative care to discuss the option of Hospice. Goals of care unclear at that time. Thoracentesis was performed on 05/07 and patient has not much improved. 05/09/23 - Pt now made comfort care (2) Pulmonary embolism: Plan: Ongoing hypoxia related to acute HFpEF and acute subsegmental PE with pulmonary edema and bilateral pleural effusions. CXR-moderate left and small right-sided pleural effusion and pulmonary edema CTA chest revealed a small subsegmental PE in right upper lobe. Venous duplex did not show any DVT Hospitalist discussed with patient's daughter over the phone on April 26, 2023 regarding finding concerning for subsegmental PE in right upper lobe. 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 She was on Coumadin prior to that. Patient's daughter agreed that if bilateral venous duplex is negative; no plans on systemic anticoagulation given the small subsegmental PE noted in the CTA chest. Discussion was done that there is future risks of st rokes and further PE. For now, risk of the anticoagulation outweigh the benefit. SCDs for DVT prophylaxis given level of frailty and risk of bleeding. 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 There is a filling defect seen at the aortic bifurcation which extends into the bilateral common iliac arteries, right greater than left. This could be due to focal thrombus, an embolus, or possibly a dissection. 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 This also results in focal high-grade stenosis of up to 90% within the proximal left common iliac artery. 2. 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 3. Multifocal areas of occlusion within the bilateral calf arteries as described above. Results discussed overnight w/ back shoe worker, vasc. surgery and family - no surgery per family and pt was started on IV heparin (pt has hx of intraabd. and intracerebr. bleed). Today 05/09 - discussed w/ vasc. surgery, cardiology, pt and family - decided for comfort care. (3) Atrial fibrillation: Plan: HR better controlled on metoprolol. No anticoagulation given history of spontane ous intra-abdominal bleeding and traumatic ICH bleeding in the past. Pt now made comfort care. (4) Metabolic alkalosis: Plan: resolved (5) Delirium: Plan: Intermittent, cont to reorient as able. (6) History of pacemaker: (7) Hypothyroidism: Plan: chronic, stable, cont levothyroxine per home regimen. (8) Hypertension: Plan: chronic, low normal. Cont current therapy. (9) Chronic kidney disease, stage 3a: Plan: chronic, stable. Creat at baseline/improved. Pt now comfort care, will stop monitor renal function. (10) Weakness: Plan: secondary to above DNR/DNI -> comfort care Dispo-to floor. Admission and Anticipated Discharge Date Admission Date: April 25, 2023 Subjective 87 yo F admitted with acute heart failure. laying in bed in NAD, says her legs don't hurt as much now. Denies chest pain, or increased shortness of breath. Yesterday pt reported hurting all over , complained of back ache and feet pain Underwent thoracentesis previously, felt that breathing was not much improved Pt's right foot was cool and purplish - venous and arterial doppler were ordered. Vascular surgery contacted and consulted, CTA abd /pelvis was ordered Overnight results of CTA were available and critical and were discussed with vasc. surgery and back shoe worker. Discussed also w/ pt's daughter - no interest in surgery - and pt was started on IV heparin (even though she has hx of intraabd. bleed and intracereb. bleed). Today discussed with vas. surgery, cardiology , pt and family - and decided for comfort care measures. Review of Systems Review of Systems: All systems reviewed & are unremarkable except as noted in Subjective Physical Exam Physical Exam: CONSTITUTIONAL: elderly, frail, F in NAD EYES: normal conjunctivae, no scleral icterus ENT: external ear and nose normal NECK: supple RESPIRATORY: +bibasilar crackles, normal respiratory effort CARDIOVASCULAR: regular rate and rhythm, S1 and 2 heard without murmurs CHEST: +pacemaker to left anterior chest wall GASTROINTESTINAL: normal bowel sounds, soft, nontender, + protuberant but not distended MUSCULOSKELETAL: moves extremities, generalized weakness, feet purplish in color, weak pulses SKIN: warm and dry NEURO/ PSYCH: awake and alert, answers simple questions appropriately, normal speech, no tremor Results & Data Results & Data Vital Signs (Past 12 Hours) Vital Signs Temp Pulse Resp BP Pulse Ox O2 Del Method O2 Flow Rate 05/09/23 07:32 36.3 C L 91 H 18 98/69 L 91 Nasal Cannula, Oxymask 2.5 05/09/23 03:06 36.2 C L 85 16 103/73 94 Nasal Cannula 2 05/08/23 22:45 Nasal Cannula 2 Laboratory Results 05/09/23 05/09/23 05/08/23 Range/Units 07:10 06:16 21:38 WBC 11.57 H 11.46 H (4.8-10.8) K/ul RBC 4.71 4.60 (4.20-5.40) M/uL Hgb 15.1 14.7 (12.0-16.0) g/dl Hct 44.9 45.4 (37.0-47.0) % MCV 95.3 98.7 (80.0-100.0) fL MCH 32.1 32.0 (25.0-34.0) pg MCHC 33.6 32.4 (32.0-36.0) g/dL RDW Std Deviation 64.4 H 66.1 H (36.4-46.3) fL RDW Coeff of Del 18.3 H 18.2 H (11.5-14.5) % Plt Count 269 263 (130-400) K/uL MPV 9.7 9.6 (9.4-12.4) fL Immature Gran % (Auto) 0.8 % Neut % (Auto) 81.7 % Lymph % (Auto) 6.3 % Heard % (Auto) 11.0 % Eos % (Auto) 0.1 % Baso % (Auto) 0.1 % Neut # (Auto) 9.37 H (1.40-6.50) K/uL Lymph # (Auto) 0.72 L (1.20-3.40) K/uL [place] # (Auto) 1.26 H (0.11-0.59) K/uL Eos # (Auto) 0.01 (0.00-0.50) K/uL Baso # (Auto) 0.01 (0.00-0.20) K/uL Immature Gran # (Auto) 0.09 (0.01-0.20) K/uL PT 11.2 (9.0-12.0) Seconds INR 1.0 (0.9-1.1) APTT 31 (21-31) Seconds PTT Ratio 1.1 Heparin Anti-Xa, Unfract 0.43 (0.3-0.7) IU/ml Sodium 130 L (136-145) mmol/L Potassium 5.7 H (3.5-5.1) mmol/L Chloride 95 L (98-107) mmol/L Carbon Dioxide 31 (21-32) mmol/L Anion Gap 4 (3-11) BUN 30 H (6-23) mg/dl Creatinine 0.92 (0.6-1.2) mg/dl Est Cr Clr Drug Dosing 35.5 ml/min Est GFR ( Amer) 65.3 ml/min Est GFR (Non-Af Amer) 56.4 ml/min BUN/Creatinine Ratio 32.6 H (10-20) Glucose 103 H (70-99(Fasting)) mg/dl POC Glucose 103 H (70-99) mg/dl Calcium 8.6 (8.6-10.3) mg/dl Phosphorus 2.5 (2.5-4.9) mg/dl Magnesium 2.7 H (1.7-2.4) mg/dl 05/08/23 05/08/23 Range/Units 21:13 08:58 WBC 8.31 (4.8-10.8) K/ul RBC 4.77 (4.20-5.40) M/uL Hgb 15.1 (12.0-16.0) g/dl Hct 46.2 (37.0-47.0) % MCV 96.9 (80.0-100.0) fL MCH 31.7 (25.0-34.0) pg MCHC 32.7 (32.0-36.0) g/dL RDW Std Deviation 64.6 H (36.4-46.3) fL RDW Coeff of Del 18.2 H (11.5-14.5) % Plt Count 256 (130-400) K/uL MPV 9.8 (9.4-12.4) fL Immature Gran % (Auto) % Neut % (Auto) % Lymph % (Auto) % Heard % (Auto) % Eos % (Auto) % Baso % (Auto) % Neut # (Auto) (1.40-6.50) K/uL Lymph # (Auto) (1.20-3.40) K/uL [place]ard # (Auto) (0.11-0.59) K/uL Eos # (Auto) (0.00-0.50) K/uL Baso # (Auto) (0.00-0.20) K/uL Immature Gran # (Auto) (0.01-0.20) K/uL PT (9.0-12.0) Seconds INR (0.9-1.1) APTT (21-31) Seconds PTT Ratio Heparin Anti-Xa, Unfract (0.3-0.7) IU/ml Sodium 127 L 128 L (136-145) mmol/L Potassium 5.2 H 5.2 H (3.5-5.1) mmol/L Chloride 95 L 95 L (98-107) mmol/L Carbon Dioxide 26 27 (21-32) mmol/L Anion Gap 6 6 (3-11) BUN 32 H 31 H (6-23) mg/dl Creatinine 0.86 0.87 (0.6-1.2) mg/dl Est Cr Clr Drug Dosing 38.0 37.6 ml/min Est GFR ( Amer) 70.9 69.9 ml/min Est GFR (Non-Af Amer) 61.2 60.3 ml/min BUN/Creatinine Ratio 37.2 H 35.6 H (10-20) Glucose 167 H 154 H (70-99(Fasting)) mg/dl POC Glucose (70-99) mg/dl Calcium 8.3 L 8.4 L (8.6-10.3) mg/dl Phosphorus 2.5 (2.5-4.9) mg/dl Magnesium 2.7 H 2.8 H (1.7-2.4) mg/dl (2) Pulmonary embolism Acute cor pulmonale presence: unspecified Chronicity: unspecified Pulmonary embolism type: unspecified Qualified Code(s): I26.99 - Other pulmonary embolism without acute cor pulmonale (3) Atrial fibrillation Atrial fibrillation type: persistent (not longstanding) Qualified Code(s): I48.19 - Other persistent atrial fibrillation (8) Hypertension Hypertension type: unspecified Qualified Code(s): I10 - Essential (primary) hypertension
[2023-05-09] MEDS: MICONAZOLE NITRATE POWDER 85 GM EXT SCH ×3 (09:15→21:45)
[2023-05-09] MEDS: DOCUSATE SODIUM/SENNA 50/8.6MG TAB PO SCH ×2 (09:15→21:45)
[2023-05-09] MEDS: FUROSEMIDE 20 MG TAB PO SCH (09:30)
[2023-05-09] MEDS: SODIUM ZIRCONIUM CYCLOSILICATE 10 GM PACKET PO SCH ×2 (10:12→16:02)
--- NOTE | 2023-05-09 11:25 | Cardiology Progress Note ---
Date of Service May 09, 2023 Assessment & Plan (1) A-fib: (2) Pacemaker: (3) Tachy-matthew syndrome: (4) Diastolic heart failure: (5) Pleural effusion: (6) Hypoalbuminemia: (7) Hyperkalemia: Plan Complex 87-year-old female seen in cardiology re-evaluation as noted below. Patient cachectic, end-stage appearing. Options of management discussed including patient wishes, goals of care; son and present though with significant dementia. Patient would like maximum comfort and requests hospice. Admission and Anticipated Discharge Date Admission Date: April 25, 2023 Supervising Physician Co-Signing Physician Notes Patient seen chart and laboratory studies reviewed Initially requested evaluation due to atrial fibrillation with rapid ventricular response. Heart rates now improved after fluid resuscitation and medication. Component of beta-carmine withdrawal possible with patient with chronic atrial fibrillation and recent missed doses. Acute illness precipitating rise in heart rate as well with thrombotic occlusion of the distal aorta Anticoagulation initiated with IV heparin appropriately Patient and family wish conservative management Would continue as doing with palliative care and home hospice Subjective Cardiology evaluation requested today by hospitalist via [place] text this morning (Cardiology signed off on 05/02/2023). Patient noted to have rapid ventricular response to her chronic atrial fibrillation last evening. Chart review reveals metoprolol tartrate was held x 2 on May 07 and again in the morning of May 08. Patient with known Tachy-Matthew Syndrome, dual chamber pacemaker in place, programmed VVIR due to chronic atrial fibrillation. Review of the patient's continuous desk monitor reveals atrial fibrillation with an acceptably controlled ventricular response overall Device interrogation performed on March 23, 2023 demonstrated a [employer] pacemaker that was implanted on April 20, 2019, dual-chamber device programmed VVIR mode with lower rate set at 50, upper sensor rate set at 120 bpm. Chronic atrial fibrillation observed. Risks of anticoagulation were felt to be greater than the benefit despite the chronic atrial fibrillation and observed subsegmental PE this admission. Patient with prior spontaneous intra-abdominal hemorrhage, atraumatic intracerebral hemorrhage, history of mechanical falls. IV heparin initiated yesterday after patient complained of severe leg pain, imaging revealing mostly thrombus, right greater than left bilateral common iliac arteries Patient seen and examined. and son from [place] at bedside. Right greater than left lower extremity leg pain. No chest pain. No palpitations. Breathing is okay. No PND. Review of Systems Review of Systems: Complete review of systems is otherwise as stated above, negative, noncontributory. Physical Exam Physical Exam: General: Alert and oriented to person and place. Lethargic eyes predominantly closed HENT: Normocephalic. Atraumatic. Eyes: PER. Conjunctiva pink, sclera pale. Neck: No JVD. Heart: Irregular regular at 80 bpm. Systolic murmur. No diastolic murmur. No rub. Lungs: Absent breath sounds at the bases. No wheeze. Abdomen: +BS. Soft. Nontender. No masses or organomegaly. Extremities: Cool and cyanotic right lower extremity. No pulses. No significant edema. Results & Data Vital Signs (Past 12 Hours) Vital Signs Temp Pulse Resp BP Pulse Ox O2 Del Method O2 Flow Rate 05/09/23 11:09 36.3 C L 94 H 18 112/78 Nasal Cannula 2.5 05/09/23 07:32 36.3 C L 91 H 18 98/69 L 91 Nasal Cannula, Oxymask 2.5 05/09/23 03:06 36.2 C L 85 16 103/73 94 Nasal Cannula 2 Laboratory Results Coagulation 05/08/23 Range/Units 21:38 PT 11.2 (9.0-12.0) Seconds APTT 31 (21-31) Seconds CBC 05/08/23 05/09/23 Range/Units 21:38 06:16 WBC 11.46 H 11.57 H (4.8-10.8) K/ul RBC 4.60 4.71 (4.20-5.40) M/uL Hgb 14.7 15.1 (12.0-16.0) g/dl Hct 45.4 44.9 (37.0-47.0) % Plt Count 263 269 (130-400) K/uL Neut # (Auto) 9.37 H (1.40-6.50) K/uL Lymph # (Auto) 0.72 L (1.20-3.40) K/uL [place] # (Auto) 1.26 H (0.11-0.59) K/uL Eos # (Auto) 0.01 (0.00-0.50) K/uL Baso # (Auto) 0.01 (0.00-0.20) K/uL Comprehensive Metabolic Panel 05/08/23 05/09/23 Range/Units 21:13 06:16 Sodium 127 L 130 L (136-145) mmol/L Potassium 5.2 H 5.7 H (3.5-5.1) mmol/L Chloride 95 L 95 L (98-107) mmol/L Carbon Dioxide 26 31 (21-32) mmol/L BUN 32 H 30 H (6-23) mg/dl Creatinine 0.86 0.92 (0.6-1.2) mg/dl Glucose 167 H 103 H (70-99(Fasting)) mg/dl Calcium 8.3 L 8.6 (8.6-10.3) mg/dl Intake and Output 05/08/23 05/09/23 05/09/23 22:59 06:59 14:59 Intake Total 250 / 250 0 / 250 Output Total Balance 249 / 249 0 / 249 Intake: IV 250 / 250 Sodium Chloride 0.9% 250 ml @ 250 / 250 500 mls/hr IV .Q30M [facility] Rx#: [id number] Oral 0 / 0 Output: # Bowel Movements Other: # Unmeasured Voids 1 1 Weight 51.2 kg 51.2 kg Weight Measurement Method Built in [facility] Patient Weight 05/10/23 06:59 Weight 51.2 kg (1) A-fib Atrial fibrillation type: unspecified Qualified Code(s): I48.91 - Unspecified atrial fibrillation
--- NOTE | 2023-05-09 12:14 | Pulmonology Progress Note ---
Date of Service May 09, 2023 Assessment & Plan (1) CHF (congestive heart failure): Heart failure chronicity: acute on chronic Heart failure type: unspecified Qualified Code(s): I50.9 - Heart failure, unspecified (2) Pleural effusion: Plan IMPRESSION: 87-year-old female with an extensive past medical history with prolonged hospitalization who we have been evaluating for CHF and pleural effusion. RECOMMENDATIONS: 1. Pleural effusion - Patient had undergone thoracentesis with removal of fluid. She tolerated the intervention well. Borderline exudative process. Will order LDH and pleural fluid cholesterol for closer evaluation. Pleural fluid negative for malignancy. Patient is otherwise stable on 1-2 L NC at this time. No further pulmonary intervention at this time. 2. Patient appears to have developed an ischemic limb in addition to their other medical issues. Defer to primary service for ongoing management of this complex situation. Thank you for allowing us to participate in the care of this patient. Pulmonary medicine will sign off at this time. Admission and Anticipated Discharge Date Admission Date: April 25, 2023 Subjective Patient seen and evaluated at bedside. She is complaining of some back pain. Overnight events were noted. Patient unable to contribute to history of present illness. Review of Systems Review of Systems: complaints of back pain. Physical Exam Physical Exam: VITAL SIGNS - Vital signs and nursing notes were reviewed. GENERAL - 87-year-old female appearing her stated age who is in no acute distress. SKIN - Ischemic RLE LUNGS - Kyphotic appearing. Auscultation reveals diminished breath sounds at the bilateral bases. CARDIAC - RRR with S1/S2. No murmur, rubs, or gallops appreciated. ABDOMEN - Abdominal inspection demonstrates flat. BS normoactive all four quadrants. No tenderness, palpable masses, or ascites noted. EXTREMITIES - Ischemic RLE with mottling to the knee. Results & Data Results & Data Vital Signs (Past 12 Hours) Vital Signs Temp Pulse Resp BP Pulse Ox O2 Del Method O2 Flow Rate 05/09/23 11:26 Nasal Cannula 2 05/09/23 11:09 36.3 C L 94 H 18 112/78 Nasal Cannula 2.5 05/09/23 07:32 36.3 C L 91 H 18 98/69 L 91 Nasal Cannula, Oxymask 2.5 05/09/23 03:06 36.2 C L 85 16 103/73 94 Nasal Cannula 2 PG Care Time/CCT Total # of Minutes Spent Total Time Spent with Patient: Total time spent is greater than 50% in coordination of care (as documented) at patient's floor/unit and/or counseling patient: Coding Level of Care Code 79449 SUB INP/OBS CARE 2MIN Diagnoses CHF (congestive heart failure) I50.9 Heart failure chronicity: acute on chronic Heart failure type: unspecified Pleural effusion J90
--- NOTE | 2023-05-09 14:14 | Electrocardiogram Report ---
Test Reason : Blood Pressure : / mmHG Vent. Rate : 127 BPM Atrial Rate : 131 BPM P-R Int : 000 ms QRS Dur : 072 ms QT Int : 314 ms P-R-T Axes : 000 -54 267 degrees QTc Int : 456 ms Atrial fibrillation with rapid ventricular response Nonspecific ST and T wave abnormality Abnormal ECG When compared with ECG of 04-MAY-2023 17:22, Atrial fibrillation has replaced Atrial flutter Confirmed by Dontae Barnard ([id number]) on 05/09/2023 2:13:34 PM Referred By: [facility] Confirmed By:Dontae Barnard
[2023-05-09] MEDS ORDERED: oxyCODONE HCL IR 5 MG TAB (IMMEDIATE RELEASE) PO PRN (16:08)
[2023-05-09] MEDS ORDERED: LIDOCAINE 5% 1 PATCH TD STA (16:09)
--- NOTE | 2023-05-09 16:20 | Consultation ---
Date of Consultation May 09, 2023 Assessment & Plan (1) Ischemic leg: Pt with BL ischemic legs, RLE mottled nearly to knee, LLE mottled to ankle. No dopplers distally. No movement. Pt currently comfortable, sleeping. Discussed CTA and physical exam findings with daughter, advised her that aggressive fely sree would not likely result in meaningful recovery. Per daughter, wishes to keep pt comfortable and not pursue any surgical intervention. Please call if needed. History of Present Illness Reason for Consultation: BLE ischemia Attending Physician: Chente Cerrato MD History of Present Illness 87 yo f with hx of tachybrady syndrome, a fib, pacemaker, CHF, CKD 3, HTN, hypothyroidism, anemia, neuropathy, DMII, admitted 2 weeks ago for CHF, now found to have ischemic BLE, seen in consultation today. Pt currently sleeping, unable to answer questions. Daughter present and provides hx. States they were hopeful she would be able to return home after rehab early on during this admission, but pt has had progressive decline and she has decided to enter hospice care. Daughter states she noticed foot/leg discoloration about 2-3 days ago. Pt c/o pain, mostly in RLE. No hx of PAD prior to this. CTA abd/pelvis with runoff performed yesterday demonstrates near occlusion/occlusion of aorta, BL iliac arteries, femoral and popliteal arteries. Allergies Allergy/AdvReac Type Severity Reaction Status Date / Time latex Allergy Unknown Unknown Verified 04/25/23 09:27 mirtazapine Allergy Unknown Rash Verified 04/25/23 09:27 lisinopril AdvReac Unknown Cough Verified 04/25/23 09:27 Home Medications Medication Instructions Recorded Confirmed Type magnesium oxide 400 mg (241.3 mg 400 mg PO QAM 05/11/19 04/25/23 History magnesium) tablet (MagOx) calcium carbonate 500 mg-vitamin 1 tab PO Q12H 02/05/20 04/25/23 History D3 10 mcg (400 unit) tablet (Calcium 500 + D) polyethylene glycol 3350 17 17 g PO DAILY PRN Constipation 02/05/20 04/25/23 History gram/dose oral powder lidocaine HCl 4 % topical cream 1 applic topical HS PRN Pain 05/18/20 04/25/23 History (Aspercreme (lidocaine HCl)) aspirin 81 mg tablet,delayed 81 mg PO QAM 07/21/20 04/25/23 History release cyanocobalamin (vitamin B-12) 2,000 mcg PO QAM 07/21/20 04/25/23 History 1,000 mcg tablet (Vitamin B-12) ferrous sulfate 325 mg (65 mg 325 mg PO Q OTHER DAY 01/03/21 04/25/23 History iron) tablet oxymetazoline 0.05 % nasal spray 2 spray intranasal UD PRN nose 01/03/21 04/25/23 History (Afrin (oxymetazoline)) bleeds fluticasone propionate 50 2 spray intranasal HS 10/02/22 04/25/23 History mcg/actuation nasal spray,suspension gabapentin 300 mg capsule 300 mg PO HS 10/02/22 04/25/23 History levothyroxine 75 mcg tablet 75 mcg PO QAM 10/02/22 04/25/23 History lidocaine 5 % topical patch 1 patch topical DAILY PRN Pain 10/02/22 04/25/23 History sennosides 8.6 mg-docusate sodium 1 tab-cap PO BID PRN Constipation 10/02/22 04/25/23 History 50 mg tablet (Senokot-S) furosemide 40 mg tablet 40 mg PO BID #60 tabs 10/05/22 04/25/23 Rx acetaminophen 650 mg 650 mg PO TID pain 04/25/23 04/25/23 History tablet,extended release empagliflozin 10 mg tablet 10 mg PO DAILY 04/25/23 04/25/23 History (Jardiance) metoprolol tartrate 25 mg tablet 12.5 mg PO BID 04/25/23 04/25/23 History spironolactone 25 mg tablet 25 mg PO QAM 04/25/23 04/25/23 History Patient History Medical History Dyspnea and respiratory abnormalities Atrial fibrillation Diastolic heart failure with preserved ejection fraction Acute heart failure with preserved ejection fraction (HFpEF) Decompensated heart failure UTI (urinary tract infection) Metabolic encephalopathy COVID-19 Fracture of neck of scapula TIA (transient ischemic attack) Possible in December 08, 2019 TIA 05/2019 per records. Last seen by neuro= 01/08/20- follow up PRN. Continue ASA. Constipation Anxiety Osteoarthritis Hyperlipidemia Persistent atrial fibrillation Stroke Chronic hyponatremia Sick sinus syndrome S/p pacemaker Hypomagnesemia Atrial fibrillation No AC secondary to history of bleeding issues (traumatic brain hemorrhage/intra- abdominal hemorrhage) Hypothyroidism HTN (hypertension) Surgical History History of pacemaker H/O colonoscopy Family History Other Cancer Social History Smoking Status: Never smoker Second Hand Exposure: No; Hx Alcohol Use: No Hx Substance Use: No Preferred Language: Albanian Communication Ability: Effective Communication Ability Comment: prior to today Peeler Operator Required: No Beliefs That Will Affect Care: None marital status: Current Living Situation: Personal Care Facility Current Living Situation Comment: [place] with who has dementia current occupational status: retired Feels Safe at Home: Yes Safety Concerns: Feels Safe At This Time Assistive Devices: Walker and Wheelchair Review of Systems Review of Systems: Unobtainable due to cognitive status Physical Exam Constitutional: well developed, + thin, + frail appearing and + lethargic; not in distress Neck: trachea midline Respiratory: normal respiratory effort (on oxygen) Auscultation: + diminished lung sounds and + crackles Cardiovascular: Rate/Rhythm: regular rate and regular rhythm Vessels: radial pulses present; + abnormal peripheral pulses, + femoral pulses abnormal, + posterior tibial pulses abnormal and + dorsalis pedis pulses abnormal Extremities: + abnormal capillary refill LLE cold/mottled ankle to toes RLE cold/mottled mid [place] to toes, no cap refill BLE Gastrointestinal (Abdomen): Inspection/Auscultation: + abdomen distended Percussion/Palpation: + abdomen firm Skin: + mottling (BLE); + abnormal turgor Psychiatric: pt sleeping Results & Data Vital Signs (Past 12 Hours) Vital Signs Temp Pulse Resp BP Pulse Ox O2 Del Method O2 Flow Rate 05/09/23 15:56 36.3 C L 94 H 18 112/77 95 Room Air 05/09/23 11:26 Nasal Cannula 2 05/09/23 11:09 36.3 C L 94 H 18 112/78 Nasal Cannula 2.5 05/09/23 07:32 36.3 C L 91 H 18 98/69 L 91 Nasal Cannula, Oxymask 2.5
--- NOTE | 2023-05-09 18:06 | Communication Note ---
Date of Service: May 09, 2023 Brief Palliative Med Note Contacted by primary team this morning requesting assistance with pt family discussions. Advised I am in outpatient clinic all day, return tomorrow to hospital. 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 TS 15min Pt not seen, NO charge submitted. Thank you for allowing us to participate in the ongoing care of this patient. Please don't hesitate to call or page with any additional concerns. Dr. Marilyn Wallace DNP Director, Palliative Care
[2023-05-09] MEDS: HEPARIN SOD 5,000 UNIT/0.5 ML VIAL SQ SCH (21:41)
[2023-05-09] MEDS: GABAPENTIN 300 MG CAP PO SCH (21:44)
[2023-05-10] MEDS: ACETAMINOPHEN 500 MG TAB PO SCH ×3 (01:28→17:25)
[2023-05-10] MEDS: traMADol HCL 50 MG TABLET PO PRN (05:18)
[2023-05-10 06:05] LABS: ANTI-Xa, UFH(UnfractionatedHep < 0.10 IU/ml (0.3-0.7)
--- NOTE | 2023-05-10 09:40 | Hospitalist Progress Note ---
Date of Service May 10, 2023 Assessment & Plan (1) Acute heart failure with preserved ejection fraction (HFpEF): Plan: Treated for acute HF, although there were limitations with giving additional lasix given her hypotension and dehydration. Thoracentesis declined by patient repeatedly. There have been challenges restarting oral Lasix with rising creatinine and hypotension. Thoracentesis was performed on 05/07 and patient has not much improved. She met with palliative care to discuss the option of Hospice. Goals of care unclear at that time. Pt made comfort care on 05/09/2023 after discussing with family, and consultants /specialists. (2) Pulmonary embolism: Plan: Ongoing hypoxia related to acute HFpEF and acute subsegmental PE with pulmonary edema and bilateral pleural effusions. CXR-moderate left and small right-sided pleural effusion and pulmonary edema CTA chest revealed a small subsegmental PE in right upper lobe. Venous duplex did not show any DVT Hospitalist discussed with patient's daughter over the phone on April 26, 2023 regarding finding concerning for subsegmental PE in right upper lobe. 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 She was on Coumadin prior to that. Patient's daughter agreed that if bilateral venous duplex is negative; no plans on systemic anticoagulation given the small subsegmental PE noted in the CTA chest. Discussion was done that there is future risks of strokes and further PE. For now, risk of the anticoagulation outweigh the benefit. SCDs for DVT prophylaxis given level of frailty and risk of bleeding. 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 There is a filling defect seen at the aortic bifurcation which extends into the bilateral common iliac arteries, right greater than left. This could be due to focal thrombus, an embolus, or possibly a dissection. 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 This also results in focal high-grade stenosis of up to 90% within the proximal left common iliac artery. 2. 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 3. Multifocal areas of occlusion within the bilateral calf arteries as described above. Results discussed overnight w/ ender aquino. surgery and family - no surgery per family and pt was started on IV heparin (pt has hx of intraabd. and intracerebr. bleed). Next day - on 05/09 - discussed w/ vasc. surgery, cardiology, pt and family - decided for comfort care. (3) Atrial fibrillation: Plan: HR better controlled on metoprolol. No anticoagulation given history of spontaneous intra-abdominal bleeding and traumatic ICH bleeding in the past. Pt now made comfort care. (4) Metabolic alkalosis: Plan: resolved (5) Delirium: Plan: Intermittent, cont to reorient as able. (6) History of pacemaker: (7) Hypothyroidism: Plan: chronic, stable, cont levothyroxine per home regimen. (8) Hypertension: Plan: chronic, low normal. Cont current therapy. (9) Chronic kidney disease, stage 3a: Plan: chronic, stable. Creat at baseline/improved. Pt now comfort care, stopped monitoring labs (10) Weakness: Plan: secondary to above DNR/DNI -> comfort care (11) Comfort measures only status: Admission and Anticipated Discharge Date Admission Date: April 25, 2023 Subjective 87 yo F admitted with acute heart failure. laying in bed in NAD, drowsy, appears comfortable Pt is on comfort care - discussed w/ RN at the bedside. Per RN pt was able to take sips of liquids. Review of Systems Review of Systems: Unobtainable due to cognitive status Physical Exam Physical Exam: CONSTITUTIONAL: elderly, frail, F in NAD EYES: normal conjunctivae, no scleral icterus ENT: external ear and nose normal NECK: supple RESPIRATORY: +bibasilar crackles, normal respiratory effort CARDIOVASCULAR: regular rate and rhythm, S1 and 2 heard without murmurs CHEST: +pacemaker to left anterior chest wall GASTROINTESTINAL: normal bowel sounds, soft, nontender, + protuberant but not distended MUSCULOSKELETAL: moves extremities, generalized weakness, feet purplish in color, weak pulses SKIN: warm and dry NEURO/ PSYCH: drowsy, moves extremities Results & Data Results & Data Vital Signs (Past 12 Hours) Vital Signs O2 Del Method O2 Flow Rate 05/09/23 22:18 Nasal Cannula 2 Laboratory Results 05/10/23 05/09/23 05/09/23 Range/Units 05:29 16:25 11:19 Heparin Anti-Xa, Unfract < 0.10 L (0.3-0.7) IU/ml POC Glucose 95 155 H (70-99) mg/dl Lactate Dehydrogenase (86-244) U/L 05/09/23 Range/Units 06:16 Heparin Anti-Xa, Unfract (0.3-0.7) IU/ml POC Glucose (70-99) mg/dl Lactate Dehydrogenase 406 H (86-244) U/L (2) Pulmonary embolism Acute cor pulmonale presence: unspecified Chronicity: unspecified Pulmonary embolism type: unspecified Qualified Code(s): I26.99 - Other pulmonary embolism without acute cor pulmonale (3) Atrial fibrillation Atrial fibrillation type: persistent (not longstanding) Qualified Code(s): I48.19 - Other persistent atrial fibrillation (8) Hypertension Hypertension type: unspecified Qualified Code(s): I10 - Essential (primary) hypertension
[2023-05-10] MEDS: FUROSEMIDE 20 MG TAB PO SCH (10:20)
[2023-05-10] MEDS: DOCUSATE SODIUM/SENNA 50/8.6MG TAB PO SCH ×2 (10:20→20:32)
[2023-05-10] MEDS: METOPROLOL TARTRATE 25 MG TAB PO SCH ×2 (10:21→20:33)
[2023-05-10] MEDS: MICONAZOLE NITRATE POWDER 85 GM EXT SCH ×3 (10:21→20:33)
--- NOTE | 2023-05-10 12:36 | Palliative Care Progress Note ---
Date of Service May 10, 2023 Assessment & Plan (1) Palliative care by specialist: Plan Patient with abrupt, acute decline d/t ischemic limb. Her family elected to transition to comfort measures only yesterday. Primary team and care management following. There is no acute inpatient palliative medicine need at this time, there is no indication for a family meeting given that the goals of care at this time are comfort and end-of-life care as expressed by family to the primary team and care management. I will sign off. Patient not seen. No charge submitted. TS and chart review: 15 minutes. Thank you for allowing us to participate in the ongoing care of this patient. Please don't hesitate to call or page with any additional concerns. Dr. Marilyn Wallace DNP Director, Palliative Care Admission and Anticipated Discharge Date Admission Date: April 25, 2023 Subjective Patient moved to comfort care late yesterday after further decline in ischemic limb. At this time there are no acute or inpatient palliative medicine needs. Family has decided on comfort care, primary team and care management are following. Palliative medicine will sign off. PG Care Time/CCT Total # of Minutes Spent Total Time Spent with Patient: Total time spent is greater than 50% in coordination of care (as documented) at patient's floor/unit and/or counseling patient: Coding Diagnoses Palliative care by specialist [id number]
[2023-05-10] MEDS: MoRPHine SULFATE 2 MG/ML CARP IV PRN (15:53)
[2023-05-10] MEDS: GABAPENTIN 300 MG CAP PO SCH (20:32)
[2023-05-11] MEDS: ACETAMINOPHEN 500 MG TAB PO SCH ×3 (00:58→17:30)
[2023-05-11] MEDS: MoRPHine SULFATE 2 MG/ML CARP IV PRN ×3 (05:27→19:46)
--- NOTE | 2023-05-11 08:13 | Hospitalist Progress Note ---
Date of Service May 11, 2023 Assessment & Plan (1) Acute heart failure with preserved ejection fraction (HFpEF): Plan: Treated for acute HF, although there were limitations with giving additional lasix given her hypotension and dehydration. Thoracentesis declined by patient repeatedly. There have been challenges restarting oral Lasix with rising creatinine and hypotension. Thoracentesis was performed on 05/07 and patient has not much improved. She met with palliative care to discuss the option of Hospice. Goals of care unclear at that time. Pt made comfort care on 05/09/2023 after discussing with family, and consultants /specialists. (2) Pulmonary embolism: Plan: Ongoing hypoxia related to acute HFpEF and acute subsegmental PE with pulmonary edema and bilateral pleural effusions. CXR-moderate left and small right-sided pleural effusion and pulmonary edema CTA chest revealed a small subsegmental PE in right upper lobe. Venous duplex did not show any DVT Hospitalist discussed with patient's daughter over the phone on April 26, 2023 regarding finding concerning for subsegmental PE in right upper lobe. 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 She was on Coumadin prior to that. Patient's daughter agreed that if bilateral venous duplex is negative; no plans on systemic anticoagulation given the small subsegmental PE noted in the CTA chest. Discussion was done that there is future risks of strokes and further PE. For now, risk of the anticoagulation outweigh the benefit. SCDs for DVT prophylaxis given level of frailty and risk of bleeding. 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 There is a filling defect seen at the aortic bifurcation which extends into the bilateral common iliac arteries, right greater than left. This could be due to focal thrombus, an embolus, or possibly a dissection. 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 This also results in focal high-grade stenosis of up to 90% within the proximal left common iliac artery. 2. 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 3. Multifocal areas of occlusion within the bilateral calf arteries as described above. Results discussed overnight w/ ender aquino. surgery and family - no surgery per family and pt was started on IV heparin (pt has hx of intraabd. and intracerebr. bleed). Next day - on 05/09 - discussed w/ vasc. surgery, cardiology, pt and family - decided for comfort care. (3) Atrial fibrillation: Plan: HR better controlled on metoprolol. No anticoagulation given history of spontaneous intra-abdominal bleeding and traumatic ICH bleeding in the past. Pt now made comfort care. (4) Metabolic alkalosis: Plan: resolved (5) Delirium: Plan: Intermittent, cont to reorient as able. (6) History of pacemaker: (7) Hypothyroidism: Plan: chronic, stable, cont levothyroxine per home regimen. (8) Hypertension: Plan: chronic, low normal. Cont current therapy. (9) Chronic kidney disease, stage 3a: Plan: chronic, stable. Creat at baseline/improved. Pt now comfort care, stopped monitoring labs (10) Weakness: Plan: secondary to above DNR/DNI -> comfort care (11) Comfort measures only status: Admission and Anticipated Discharge Date Admission Date: April 25, 2023 Subjective 87 yo F admitted with acute heart failure. laying in bed in NAD, drowsy, appears comfortable Pt is on comfort care - discussed w/ RN at the bedside. Review of Systems Review of Systems: All systems reviewed & are unremarkable except as noted in Subjective Physical Exam Physical Exam: CONSTITUTIONAL: elderly, frail, F in NAD EYES: normal conjunctivae, no scleral icterus ENT: external ear and nose normal NECK: supple RESPIRATORY: +bibasilar crackles, normal respiratory effort CARDIOVASCULAR: regular rate and rhythm, S1 and 2 heard without murmurs CHEST: +pacemaker to left anterior chest wall GASTROINTESTINAL: normal bowel sounds, soft, nontender, + protuberant but not distended MUSCULOSKELETAL: moves extremities, generalized weakness, feet purple in color R >L SKIN: warm and dry NEURO/ PSYCH: drowsy, moves extremities Results & Data Results & Data Vital Signs (Past 12 Hours) Vital Signs O2 Del Method O2 Flow Rate 05/10/23 20:47 Nasal Cannula 2 (2) Pulmonary embolism Acute cor pulmonale presence: unspecified Chronicity: unspecified Pulmonary embolism type: unspecified Qualified Code(s): I26.99 - Other pulmonary embolism without acute cor pulmonale (3) Atrial fibrillation Atrial fibrillation type: persistent (not longstanding) Qualified Code(s): I48.19 - Other persistent atrial fibrillation (8) Hypertension Hypertension type: unspecified Qualified Code(s): I10 - Essential (primary) hypertension
[2023-05-11] MEDS: METOPROLOL TARTRATE 25 MG TAB PO SCH ×2 (08:31→19:45)
[2023-05-11] MEDS: FUROSEMIDE 20 MG TAB PO SCH (08:31)
[2023-05-11] MEDS: DOCUSATE SODIUM/SENNA 50/8.6MG TAB PO SCH ×2 (08:31→19:45)
[2023-05-11] MEDS: MICONAZOLE NITRATE POWDER 85 GM EXT SCH ×3 (08:32→19:45)
[2023-05-11] MEDS: GABAPENTIN 300 MG CAP PO SCH (19:45)
[2023-05-12] MEDS: ACETAMINOPHEN 500 MG TAB PO SCH ×3 (01:41→17:11)
[2023-05-12] MEDS: MoRPHine SULFATE 2 MG/ML CARP IV PRN ×4 (06:07→15:48)
[2023-05-12] MEDS: DOCUSATE SODIUM/SENNA 50/8.6MG TAB PO SCH (10:10)
[2023-05-12] MEDS: FUROSEMIDE 20 MG TAB PO SCH (10:11)
[2023-05-12] MEDS: METOPROLOL TARTRATE 25 MG TAB PO SCH (10:11)
[2023-05-12] MEDS: MICONAZOLE NITRATE POWDER 85 GM EXT SCH ×2 (10:11→16:05)
[2023-05-12] MEDS ORDERED: MoRPHine SULFATE 2 MG/ML CARP IV PRN (11:07)
[2023-05-12] MEDS ORDERED: MoRPHine SULFATE 2 MG/ML CARP IV STA (11:19)
--- NOTE | 2023-05-12 13:36 | Hospitalist Progress Note ---
Date of Service May 12, 2023 Assessment & Plan (1) Acute heart failure with preserved ejection fraction (HFpEF): Plan: Treated for acute HF, although there were limitations with giving additional lasix given her hypotension and dehydration. Thoracentesis declined by patient repeatedly. There have been challenges restarting oral Lasix with rising creatinine and hypotension. Thoracentesis was performed on 05/07 and patient has not much improved. She met with palliative care to discuss the option of Hospice. Goals of care unclear at that time. Pt made comfort care on 05/09/2023 after discussing with family, and consultants /specialists. (2) Pulmonary embolism: Plan: Ongoing hypoxia related to acute HFpEF and acute subsegmental PE with pulmonary edema and bilateral pleural effusions. CXR-moderate left and small right-sided pleural effusion and pulmonary edema CTA chest revealed a small subsegmental PE in right upper lobe. Venous duplex did not show any DVT Hospitalist discussed with patient's daughter over the phone on April 26, 2023 regarding finding concerning for subsegmental PE in right upper lobe. 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 She was on Coumadin prior to that. Patient's daughter agreed that if bilateral venous duplex is negative; no plans on systemic anticoagulation given the small subsegmental PE noted in the CTA chest. Discussion was done that there is future risks of strokes and further PE. For now, risk of the anticoagulation outweigh the benefit. SCDs for DVT prophylaxis given level of frailty and risk of bleeding. 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 There is a filling defect seen at the aortic bifurcation which extends into the bilateral common iliac arteries, right greater than left. This could be due to focal thrombus, an embolus, or possibly a dissection. 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 This also results in focal high-grade stenosis of up to 90% within the proximal left common iliac artery. 2. 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 3. Multifocal areas of occlusion within the bilateral calf arteries as described above. Results discussed overnight w/ ender aquino. surgery and family - no surgery per family and pt was started on IV heparin (pt has hx of intraabd. and intracerebr. bleed). Next day - on 05/09 - discussed w/ vasc. surgery, cardiology, pt and family - decided for comfort care. (3) Atrial fibrillation: Plan: HR better controlled on metoprolol. No anticoagulation given history of spontaneous intra-abdominal bleeding and traumatic ICH bleeding in the past. Pt now made comfort care. (4) Metabolic alkalosis: Plan: resolved (5) Delirium: Plan: Intermittent, cont to reorient as able. (6) History of pacemaker: (7) Hypothyroidism: Plan: chronic, stable, cont levothyroxine per home regimen. (8) Hypertension: Plan: chronic, low normal. Cont current therapy. (9) Chronic kidney disease, stage 3a: Plan: chronic, stable. Creat at baseline/improved. Pt now comfort care, stopped monitoring labs (10) Weakness: Plan: secondary to above DNR/DNI -> comfort care (11) Comfort measures only status: Admission and Anticipated Discharge Date Admission Date: April 25, 2023 Subjective 87 yo F admitted with acute heart failure. laying in bed in NAD, drowsy, however reported pain - discussed w/ RN - pt was just moved what triggered discomfort and will be given morphine Pt is on comfort care Review of Systems Review of Systems: All systems reviewed & are unremarkable except as noted in HPI & below Physical Exam Physical Exam: CONSTITUTIONAL: elderly, frail, F in NAD EYES: normal conjunctivae, no scleral icterus ENT: external ear and nose normal NECK: supple RESPIRATORY: +bibasilar crackles, normal respiratory effort CARDIOVASCULAR: regular rate and rhythm, S1 and 2 heard without murmurs CHEST: +pacemaker to left anterior chest wall GASTROINTESTINAL: normal bowel sounds, soft, nontender, + protuberant but not distended MUSCULOSKELETAL: moves extremities, generalized weakness, feet purple in color R >L SKIN: warm and dry NEURO/ PSYCH: drowsy but awake, able to simply communicate needs, moves extremities Results & Data Results & Data Vital Signs (Past 12 Hours) Vital Signs Temp Pulse Resp BP Pulse Ox O2 Del Method 05/12/23 07:10 36.6 C 132 H 24 119/75 87 L Room Air (2) Pulmonary embolism Acute cor pulmonale presence: unspecified Chronicity: unspecified Pulmonary embolism type: unspecified Qualified Code(s): I26.99 - Other pulmonary embolism without acute cor pulmonale (3) Atrial fibrillation Atrial fibrillation type: persistent (not longstanding) Qualified Code(s): I48.19 - Other persistent atrial fibrillation (8) Hypertension Hypertension type: unspecified Qualified Code(s): I10 - Essential (primary) hypertension
--- NOTE | 2023-05-12 18:11 | Communication Note ---
Date of Service: May 12, 2023 Asked to certify: On examination- No palpable pulse, no respiration, totally unresponsive, pupils dilated and fixed and no audible heart sound. The patient was pronounced at 1752 hrs. on 05/12/2023. The certificate will be completed by the attending. Dr Alexandra Peterson
--- NOTE | 2023-05-12 21:59 | Discharge Summary ---
Date of Service May 12, 2023 Admission HPI Per Admitting Provider History obtained from chart review and interview with the patient. 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 Discharged on Lasix 40 mg twice daily. It was increased from Lasix 20 mg twice daily. Patient was sent from [facility] with shortness of breath. Patient reports that she has been out of her peripheral neuropathy medication for several days; she reports that that is the reason for her presentation to the hospital. She does endorse some shortness of breath when questioned. She denies any chest pain, palpitation, dizziness, cough or fever. On presentation to the ED, she was normotensive, afebrile and saturating well on room air. Creatinine/BUN elevated to 1.25/34 BNP elevated 1000 D-dimer was found to be 4000 Chest x-ray personally reviewed; moderate left and small right-sided pleural effusion. Also consider pulm edema. CTA chest personally reviewed; bilateral pleural effusion present with mild pulmonary edema. Also reported to have a small subsegmental PE in right upper lobe. Venous duplex does not show any DVT EKG personally reviewed; atrial fibrillation with ventricular rate of 91. QTc of 533 Patient was then admitted to telemetry floor for further management. Admission Exam Per Admitting Provider Constitutional: Alert orient x 3. Not in any distress. Hard of hearing Respiratory: Decreased breath sound at bilateral bases. Occasional crackles heard Cardiovascular: Irregular, no murmur, no edema Vessels: no JVD or carotid bruit Chest: normal inspection of chest Abdomen: normal bowel sounds, soft, nontender, no hepatosplenomegaly Musculoskeletal: no cyanosis or clubbing, extremities motor strength 5/5 Skin: no rashes, warm and dry normal turgor Neurologic: PERRL, EOMI, accommodation nl, no face palsy, no dysarthria CN's II- XI intact bilaterally and moves all extremities Psychiatric: A+Ox3, euthymic affect Principal Diagnosis Acute HFpEF and acute subsegmental PE, bilateral pleural effusions Thrombotic occlusion of distal aorta Discharge Exam On examination- No palpable pulse, no respiration, totally unresponsive, pupils dilated and fixed and no audible heart sound. The patient was pronounced at 1752 hrs. on 05/12/2023. Discharge Data Allergies Allergy/AdvReac Type Severity Reaction Status Date / Time latex Allergy Unknown Unknown Verified 04/25/23 09:27 mirtazapine Allergy Unknown Rash Verified 04/25/23 09:27 lisinopril AdvReac Unknown Cough Verified 04/25/23 09:27 Consultations 04/25/23 10:51 ED Decision to Admit Stat 04/25/23 12:49 Consult Cardiology Routine 04/30/23 15:41 Consult Pulmonology Routine 05/02/23 10:55 Consult Palliative Care Routine 05/08/23 15:42 Consult Vascular Surgery Routine Ordered Studies 04/25/23 09:41 CT angio chest PE protocol Stat 04/25/23 11:16 US venous duplex leg [US venous doppler LE BI] Routine 05/02/23 01:19 CT Abd and Pelvis [CT abd pelvis wo con] Stat 05/02/23 01:25 CT head/brain wo con Stat 05/07/23 08:48 IR thoracentesis wo tube US Urgent 05/08/23 11:10 US doppler leg [US arterial duplex LE RT] Urgent US venous doppler LE RT Urgent 05/08/23 15:48 CTA abd aorta runof w con [CT ang AA runof w inc wo ifdon] Routine 05/08/23 23:27 CT head/brain wo con Stat Hospital Course (1) Acute heart failure with preserved ejection fraction (HFpEF): Treated for acute HF, although there were limitations with giving additional lasix given her hypotension and dehydration. Thoracentesis declined by patient repeatedly. There have been challenges restarting oral Lasix with rising creatinine and hypotension. Thoracentesis was performed on 05/07 and patient has not much improved. She met with palliative care to discuss the option of Hospice. Goals of care unclear at that time. Pt made comfort care on 05/09/2023 after discussing with family, and consultants /specialists - cardiology, vascular surgery. Pt on 05/12/2023. (2) Pulmonary embolism: Ongoing hypoxia related to acute HFpEF and acute subsegmental PE with pulmonary edema and bilateral pleural effusions. CXR-moderate left and small right-sided pleural effusion and pulmonary edema CTA chest revealed a small subsegmental PE in right upper lobe. Venous duplex did not show any DVT Hospitalist discussed with patient's daughter over the phone on April 26, 2023 regarding finding concerning for subsegmental PE in right upper lobe. 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 She was on Coumadin prior to that. Patient's daughter agreed that if bilateral venous duplex is negative; no plans on systemic anticoagulation given the small subsegmental PE noted in the CTA chest. Discussion was done that there is future risks of strokes and further PE. It was felt at that time that risk of the anticoagul ation outweigh the benefit. SCDs for DVT prophylaxis given level of frailty and risk of bleeding. 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 There is a filling defect seen at the aortic bifurcation which extends into the bilateral common iliac arteries, right greater than left. This could be due to focal thrombus, an embolus, or possibly a dissection. 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 This also results in focal high-grade stenosis of up to 90% within the proximal left common iliac artery. 2. 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 3. Multifocal areas of occlusion within the bilateral calf arteries as described above. Results discussed overnight w/ coordinate measuring machine operator, barbiec. surgery and family - no surgery per family and pt was started on IV heparin (pt has hx of intraabd. and intracerebr. bleed). Next day - on 05/09 - discussed w/ vasc. surgery, cardiology, pt and family - decided for comfort care. (3) Atrial fibrillation: HR better controlled on metoprolol. No anticoagulation given history of spontaneous intra-abdominal bleeding and traumatic ICH bleeding in the past. (4) Metabolic alkalosis: (5) Delirium: Intermittent, cont to reorient as able. (6) History of pacemaker: (7) Hypothyroidism: cont levothyroxine per home regimen as long as able to take PO. (8) Hypertension: (9) Chronic kidney disease, stage 3a: (10) Weakness: (11) Comfort measures only status: Total Time Total Time Spent Total Time Spent (In Minutes): 24 Discharge Plan Discharge Items Patient Disposition: Discharge Diagnosis: Acute HFpEF and acute subsegmental PE, bilateral pleural effusions Thrombotic occlusion of distal aorta Other Date/Time: 05/12/23 17:52
== END 2023-05-12 18:38 | disposition expired | DRG 175 ==
LOC: ED 06:22 → 2E 11:16 → SUATTDRO 11:16 → 2E 13:30 → 3N 05-04 14:56 → 2S 05-08 20:58 → 3E 05-09 20:11